=== PATIENT | male | born 1945 | race Caucasian/White ===

== ENCOUNTER 2023-08-14 09:19 | Outpatient (CLI) | payer OTHER, SELFPAY ==
--- OUTSIDE RECORDS SUMMARY | 2023-08-14 09:26 | XMS_ITS | Encounter Summary ---
Author Name Unknown Organization [facility] er Address [address] [place] [address] Care Team Providers Care Construction Electrician Name Role Phone None, Pcp Primary Care Provider Unavailabl e Reason for Visit * Consultation (Routine) - Authorized Specialty Diagnoses / Procedures Referred By Contact Referred To Contact Cardiac Rehabilitation / Cardiopulmonary Rehab Diagnoses History of heart artery stent Sabina Masters MD [address] [place], [place] [phone] [facility] [address] [place] [address] Referral ID Status Reason Start Date Expiration Date Visits Requested Visits Authorized [id number] Authorized Specialty Services Required 10/05/2022 10/06/2023 99 99 Encounter Details Date Type Department Care Team (Latest Contact Info) Description 10/15/2022 2:00 PM CDT Treatment [facility] [address] [place] [address] ST elevation myocardial infarction (STEMI), unspecified artery (HCC) (Primary Dx) Social History Tobacco Use Types Packs/Day Years Used Date Smoking Tobacco: Former Smokeless Tobacco: Never Alcohol Use Standard Drinks/Week Comments Not Currently 0 (1 standard drink = 0.6 oz pur e alcohol) PHQ-2 Answer Date Recorded PHQ-9 Total Score 0 10/15/2022 Sex and Gender Information Value Date Recorded Sex Assigned at Not on file Gender Identity Not on file Sexual Orientation Not on file documented as of this encounter Progress Notes * Yvrose Atkinson - 10/15/2022 2:00 PM CDT Patient presented to initial Cardiac Rehab session. [facility] to [facility] if [facility] is interested in [facility]. Sent patient home with welcome materials and phone number to call back and schedule. documented in this encounter Plan of Treatment Upcoming Encounters Date Type Department Care Team (Late st Contact Info) Description 09/18/2023 10:45 AM MINE SHIFTER Hospital Encounter [facility] OR Procedure Room [address] [place] [phone] Maximino Hernandez MD [address] [place] [phone] 09/18/2023 10:45 AM MINE SHIFTER - 09/18/2023 11:30 AM MINE SHIFTER Surgery [facility] OR Procedure Room [address] [place] [phone] Maximino Hernandez MD [address] [place] [phone] COLONOSCOPY Scheduled Procedures Name Priority Associated Diagnoses Date/Ti me COLONOSCOPY Personal history of colonic polyps 09/18/2023 10:45 AM MINE SHIFTER Scheduled Referrals Name Type Priority Associated Diagnoses Order Schedule Ambulatory referral to Cardiac Rehabilitation Outpatient Referral Routine History of heart artery stent Ordered: 10/05/2022 documented as of this encounter Visit Diagnoses Diagnosis ST elevation myocardial infarction (STEMI), unspecified artery (HCC)- Primary Personal history of colonic polyps documented in this encounter Care Teams Construction Electrician Relationship Specialty Start Date End Date None, Pcp [address] [place] [phone] PCP - General Tractor Sweeper Driver 11/06/21 documented as of this encounter
--- OUTSIDE RECORDS SUMMARY | 2023-08-14 09:26 | XMS_ITS | Clinical Summary ---
Author Name Unknown Organization [facility] er Address [address] [place] [address] Care Team Providers Care Tax Map Technician Name Role Phone None, Pcp Primary Care Provider Unavailabl e Allergies Active Allergy Reactions Criticality Noted Date Comments Bupropion Hcl 11/06/2021 Medications Medication Sig Dispensed Refills Start Date End Date Status insulin NPH, Isophane, (HumuLIN,NovoLIN) 100 UNIT/ML injection Inject under the skin twice a day 35u AM dose 15u PM dose 0 08/09/2016 Active INSULIN REGULAR HUMAN IJ Inject under the skin 2 (two) times a day 22u AM dose 20u PM dose 0 08/09/2016 Active aspirin 81 MG chewable tablet 0 07/05/2016 Active atorvastatin (Lipitor) 20 MG tablet 0 07/05/2016 Active cyanocobalamin (VITAMIN B-12) 1000 MCG tablet Take 1,000 mcg by mouth 1 (one) time each day 0 10/07/2021 Active hydroCHLOROthiazide (HYDRODIURIL) 25 MG tablet Take 25 mg by mouth 1 (one) time each day 0 10/06/2021 Active lisinopril (ZESTRIL) 40 MG tablet 0 07/05/2016 Active metFORMIN (GLUCOPHAGE) 1000 MG tablet Take 1 tablet by mouth 2 (two) times a day 0 07/05/2016 Active Active Problems No known active problems Social History Tobacco Use Types Packs/Day Years [...] on file Sexual Orientation Not on file Last Filed Vital Signs Vital Sign Reading Time Taken Comments Blood Pressure 173/70 11/06/2021 9:49 AM CDT Pulse 78 11/06/2021 9:49 AM CDT Temperature 36.4 ??C (97.5 ??F) 11/06/2021 9:49 AM CD T Respiratory Rate 18 11/06/2021 9:49 AM CDT Oxygen Saturation 96% 11/06/2021 9:49 AM CDT Inhaled Oxygen Concentration - - Weight 91.9 kg (202 lb 9.6 oz) 11/06/2021 9:49 A M CDT Height 172 cm (5' 7.72) 11/06/2021 9:49 AM CDT Body Mass Index 31.06 11/06/2021 9:49 AM CDT Plan of Treatment Upcoming Encounters Date Type Department Care Team (Late st Contact Info) Description 09/18/2023 10:45 AM CERTIFIED SURGICAL TECHNICIAN Hospital Encounter [facility] Hospital OR Procedure Room [address] [place] [phone] Maximino Hernandez MD [address] [place] [phone] 09/18/2023 10:45 AM CERTIFIED SURGICAL TECHNICIAN - 09/18/2023 11:30 AM CERTIFIED SURGICAL TECHNICIAN Surgery [facility] OR Procedure Room [address] [place] [phone] Maximino Hernandez MD [address] [place] [phone] COLONOSCOPY Scheduled Procedures Name Priority Associated Diagnoses Date/Ti me COLONOSCOPY Personal history of colonic polyps 09/18/2023 10:45 AM CERTIFIED SURGICAL TECHNICIAN Health Maintenance Due Date Last Done Comments COVID-19 Vaccine (#1) 1947 Fall Risk Performed 1965 Zoster Vaccines (1 of 2) 1997 Pneumococcal Vaccine: 65+ Years (1 of 1 - PCV) 02/29/2012 Influenza Vaccine (#1) 2023 05/17/2011 DTaP,Tdap,and Td Vaccines (4 - Td or Tdap) 07/12/2032 07/12/2022, 11/24/2012, 06/11/2007, Additional history exists Colonoscopy Discontinued 05/25/2013 Colorectal Cancer Screening Discontinued CT Colonography Discontinued FIT-DNA Discontinued HPV Vaccines Aged Out No longer eligi ble based on patient's age to complete this topic Sigmoidoscopy Discontinued iFOBT Discontinued Care Teams Tax Map Technician Relationship Specialty Start Date End Date None, Pcp [address] [place] [phone] PCP - General De Icer Finisher 11/06/21
--- OUTSIDE RECORDS SUMMARY | 2023-08-14 09:26 | XMS_ITS | Encounter Summary ---
Author Name Unknown Organization [facility] er Address [address] [place] [address] Care Team Providers Care Seed Technician Name Role Phone None, Pcp Primary Care Provider Unavailabl e Reason for Referral * Consultation (Routine) - Authorized Specialty Diagnoses / Procedures Referred By Contact Referred To Contact Cardiac Rehabilitation / Cardiopulmonary Rehab Diagnoses History of heart artery stent Sabina Masters MD [address] [place] [phone] [facility] [address] [place] [phone] Referral ID Status Reason Start Date Expiration Date Visits Requested Visits Authorized [id number] Authorized Specialty Services Required 10/05/2022 10/06/2023 99 99 Scheduling Instructions STENT 09/22/22 LITIES PAINTER Encounter Details Date Type Department Care Team (Late Contact Info) Description 10/05/2022 Orders Only [facility] [address] [place] [phone] Sabina Masters MD [address] [place] [phone] History of heart artery stent (Primary Dx) Social History Tobacco Use Types Packs/Day Years Used Date Smoking Tobacco: Former Smokeless Tobacco: Never Alcohol Use Standard Drinks/Week Comments Not Currently 0 (1 standard drink = 0.6 oz pur e alcohol) Sex and Gender Information Value Date Recorded Sex Assigned at Not on file Gender Identity Not on file Sexual Orientation Not on file documented as of this encounter Plan of Treatment Upcoming Encounters Date Type Department Care Team (Late Contact Info) Description 09/18/2023 10:45 AM FACILITIES PAINTER Hospital Encounter [facility] Procedure Room [address] [place] [phone] Maximino Hernandez MD [address] [place] [phone] 09/18/2023 10:45 AM FACILITIES PAINTER - 09/18/2023 11:30 AM FACILITIES PAINTER Surgery [facility] OR Procedure Room [address] [place] [phone] Maximino Hernandez MD [address] [place] [phone] COLONOSCOPY Scheduled Procedures Name Priority Associated Diagnoses Date/Ti me COLONOSCOPY Personal history of colonic polyps 09/18/2023 10:45 AM FACILITIES PAINTER Scheduled Referrals Name Type Priority Associated Diagnoses Order Schedule Ambulatory referral to Cardiac Rehabilitation Outpatient Referral Routine History of heart artery stent Ordered: 10/05/2022 documented as of this encounter Visit Diagnoses Diagnosis History of heart artery stent- Primary Personal history of colonic polyps documented in this encounter Care Teams Seed Technician Relationship Specialty Start Date End Date None, Pcp [address] [place] [phone] PCP - General Data Librarian 11/06/21 documented as of this encounter
--- OUTSIDE RECORDS SUMMARY | 2023-08-14 09:27 | XMS_ITS | Continuity of Care Document ---
Author Name [facility] Organization [facility] Care Team Providers Care Geologist Name Role Phone [facility] Unavailable Unavailable Problems Combined list of problems from Department of Defense and Veterans Affairs facilities. It does not include entries that were removed or entered in error. Problem Status Onset Date Problem Type Date of Resolution Comments Source Anemia Active Condition [facility] ([facility]) Aortic valve stenosis Active Condition Jul 11, 2023 Entered By: ZINA MARIANO Comment: -Echo 02/18/2023: Mild; mean gradient of 10 mmHg, MICHAEL of 1.5-2.0 cm2 [facility]) CAD - Coronary Artery Disease ([facility] [id number]) Active Condition Oct 01, 2022 Entered By: DAMIAN RYAN Comment: 09/22/2022 stemi with 2 stents [facility]) CHF - Congestive Heart Failure ([facility] [id number]) Active Condition Mar 04, 2023 Entered By: OSMANY RIVERA Comment: -EF 50-55% per echo 3Dec 2022 Entered By: ZINA MARIANO Comment: repeat echo in 3 year [facility]) Ex-tobacco user Active Condition Jul 11, 2023 Entered By: ZINA MARIANO Comment: Quit 2012 [facility] ([facility]) Family history of disorder Active Condition Jul 11, 2023 Entered By: ZINA MARIANO Comment: Mother- dementiaDec 2022 Entered By: ZINA MARIANO Comment: Son - PA in 40sDec 2022 Entered By: ZINA MARIANO Comment: Father - DM, MIDec 2022 Entered By: ZINA MARIANO Comment: Sister - DM [facility] ([facility]) History of adenomatous polyp of colon Active Condition Jul 11, 2023 Entered By: ZINA MARIANO Comment: last colonoscopy 2013 [place] [facility] [place] pt report normal [facility]) History of surgery Active Condition Jul 11, 2023 Entered By: ZINA MARIANO Comment: left inguinal hernia repair 08/2018 [facility] (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 Jul 11, 2023 Entered By: ZIAN MARIANO Comment: onset at 55 years old; pos KSENIA--65 antibody [facility] Mixed hyperlipidemia Active Condition [facility] ([facility]) Multiple nodules of lung Active Condition [facility] ([facility]) Peripheral neuropathy Active Condition [facility] Pernicious anemia Active Condition [facility] ([facility]) Polymyalgia rheumatica Active Condition [facility] ([facility]) Social and personal history finding Active Condition Jul 11, 2023 Entered By: ZINA [facility]IANO [facility] Entered By: ZIAN MARIANO Comment: Does not drink alcohol [facility] ([facility]) Diagnosis: ICD-10-CM E10.9 Type 1 diabetes mellitus without complications Active Diagnosis [facility] Diagnosis: ICD-10-CM M35.3 Polymyalgia rheumatica Active Diagnosis [facility] Diagnosis: ICD-10-CM I10 Essential (primary) hypertension Active Diagnosis [facility] ([facility]) Diagnosis: ICD-10-CM E10.40 Type 1 diabetes mellitus with diabetic neuropathy, unsp Active Diagnosis [facility] (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 Diagnosis: ICD-10-CM M79.643 Pain in unspecified hand Active Diagnosis [facility] ([facility]) Diagnosis: ICD-10-CM Z13.6 Encounter for screening for cardiovascular disorders Active Diagnosis [facility] Diagnosis: ICD-10-CM I50.9 Heart failure, unspecified Active Diagnosis [facility] ([facility]) Diagnosis: ICD-10-CM E11.9 Type 2 diabetes mellitus without complications Active Diagnosis [facility] ([facility]) Diagnosis: ICD-10-CM E10.8 Type 1 diabetes mellitus with unspecified complications Active Diagnosis [facility] Diagnosis: ICD-10-CM E11.65 Type 2 diabetes mellitus with hyperglycemia Active Diagnosis [facility] Diagnosis: ICD-10-CM Z01.00 Encounter for exam of eyes and vision w/o abnormal findings Active Diagnosis [facility] Medications Combined list of outpatient medications from Department of Defense and Veterans Affairs facilities.Medications provided include 1) outpatient medications from the last 15 months, and 2) patient-reported medications. Medication Details Route Status Patient Instructions Prescription Expires Prescription Number Last Dispense Date Ordering Provider Order Date Source ASPIRIN 81MG TAB,EC TAKE ONE TABLET BY MOUTH EVERY DAY FOR HEART DISEASE ORALLY SUSPEND ED 07/11/2024 [id number] CAIN MARIANO 2023 [place] ([facility]) ASPIRIN 81MG TAB,EC TAKE ONE TABLET BY MOUTH EVERY DAY FOR HEART DISEASE ORALLY DISCONT INUED 09/20/2023 [id number] 3 HARDER,EM POOJA 2022 [place] ([facility]) ATORVASTATI N CA 40MG TAB TAKE ONE TABLET BY MOUTH AT BEDTIME FOR CHOLESTE ROL ORALLY DISCONT INUED (EDIT) 12/15/2022 [id number] 3 HARDER,EM POOJA 2021 [place] ([facility]) ATORVASTATI N CA 80MG TAB TAKE ONE TABLET BY MOUTH AT BEDTIME FOR CHOLESTE ROL ORALLY SUSPEND ED 07/11/2024 [id number] 4 CAIN MARIANO 2023 [place] ([facility]) ATORVASTATI N CA 80MG TAB TAKE ONE TABLET BY MOUTH AT BEDTIME FOR CHOLESTE ROL ORALLY DISCONT INUED 10/02/2023 [id number] 3 PATEL RYAN 2022 [place] ([facility]) CLOPIDOGREL BISULFATE 75MG TAB TAKE ONE TABLET BY MOUTH EVERY DAY FOR 1 YEAR AFTER STENT UNTIL 09/25/19 24 ORALLY ACTIVE 10/02/2023 [id number] 3 PATEL RYAN 2022 [place] ([facility]) CYANOCOBALA MIN 1000MCG TAB TAKE ONE TABLET BY MOUTH EVERY DAY FOR B12 SUPPLEME NT ORALLY SUSPEND ED 07/11/2024 [id number] 4 CAIN MARIANO 2023 [place] ([facility]) CYANOCOBALA MIN 1000MCG TAB TAKE ONE TABLET BY MOUTH EVERY DAY FOR B12 SUPPLEME NT ORALLY DISCONT INUED 09/20/2023 [id number] 3 HARDER,EM POOJA 2022 [place] ([facility]) DICLOFENAC NA 1% GEL,TOP APPLY 4 GRAMS TOPICALL Y THREE TIMES A DAY NEEDED TO AFFECTED AREA FOR PAIN TOPICA LLY ACTIVE 07/11/2024 [id number] 3 CAIN MARIANO A 2022 [place] ([facility]) DICLOFENAC NA 1% GEL,TOP APPLY 4 GRAMS TOPICALL Y THREE TIMES A DAY NEEDED TO AFFECTED AREA FOR PAIN TOPICA LLY DISCONT INUED 10/02/2023 [id number] 3 CON[facility] BRENDAN NATALIO 2022 [place] ([facility]) EMPAGLIFLOZ IN 25MG TAB TAKE ONE-HALF TABLET BY MOUTH EVERY DAY FOR HEART FAILURE ORALLY DISCONT INUED 12/30/2022 [id number] 3 PATEL RYAN NATALIO 2022 [place] ([facility]) EMPAGLIFLOZ IN 25MG TAB TAKE ONE TABLET BY MOUTH EVERY DAY ORALLY DISCONT INUED 12/08/2022 [id number] 2 [facility] [place] [facility] FUROSEMIDE 40MG TAB TAKE ONE TABLET BY MOUTH EVERY MORNING FOR EXCESS FLUID ORALLY SUSPEND ED 07/11/2024 [id number] 4 CAIN MARIANO A 2023 [place] ([facility]) FUROSEMIDE 40MG TAB TAKE ONE TABLET BY MOUTH EVERY MORNING FOR EXCESS FLUID ORALLY DISCONT INUED 10/02/2023 [id number] 3 [facility] [place] [facility] HYDROCHLORO THIAZIDE 25MG TAB TAKE ONE TABLET BY MOUTH EVERY DAY FOR BLOOD PRESSURE ORALLY DISCONT INUED 09/20/2023 [id number] 3 HARDER,EM POOJA 2022 [place] ([facility]) INSULIN,ASP ART,HUMAN (EQV-NOVOLO G) 100 UNIT/ML,FLE XPEN,3ML INJECT 16 UNITS UNDER THE SKIN THREE TIMES A DAY WITH MEALS FOR DIABETES PLUS 1 ADDITION AL UNIT FOR EVERY 50 OVER 150. MAX OF 20 UNITS PER DOSE. SKIP DOSE IF NOT EATING. MAX OF 60 UNITS PER DAY SUBCUT ANEOUS ACTIVE 07/11/2024 [id number] 3 CAIN MARIANO 2022 [place] ([facility]) INSULIN,ASP ART,HUMAN (EQV-NOVOLO G) 100 UNIT/ML,FLE XPEN,3ML INJECT 12 UNITS UNDER THE SKIN THREE TIMES A DAY WITH MEALS FOR DIABETES PLUS 1 ADDITION AL UNIT FOR EVERY 50 OVER 150. MAX OF 20 UNITS. SKIP DOSE IF NOT EATING PLUS 1 ADDITION AL UNIT FOR EVERY 50 OVER 150. MAX OF 20 UNITS. SKIP DOSE IF NOT EATING SUBCUT ANEOUS DISCONT INUED (EDIT) 07/02/2024 [id number] 3 HARDER,EM POOJA 2022 [place] ([facility]) INSULIN,ASP ART,HUMAN (EQV-NOVOLO G) 100 UNIT/ML,FLE XPEN,3ML INJECT 12 UNITS UNDER THE SKIN THREE TIMES A DAY WITH MEALS FOR DIABETES - SKIP DOSE IF NOT EATING PLUS 1 ADDITION AL UNIT FOR EVERY 50 OVER 150. MAX OF 16 UNITS PER DOSE - SKIP DOSE IF NOT EATING PLUS 1 ADDITION AL UNIT FOR EVERY 50 OVER 150. MAX OF 16 UNITS PER DOSE SUBCUT ANEOUS DISCONT INUED (EDIT) 12/07/2023 [id number] 3 HARDER,EM POOJA 2022 [place] ([facility]) INSULIN,ASP ART,HUMAN (EQV-NOVOLO G) 100 UNIT/ML,FLE XPEN,3ML INJECT 12 UNITS UNDER THE SKIN THREE TIMES A DAY WITH MEALS FOR DIABETES - SKIP DOSE IF NOT EATING PLUS 1 ADDITION AL UNIT FOR EVERY 50 OVER 150. MAX OF 16 UNITS PER DOSE - SKIP DOSE IF NOT EATING PLUS 1 ADDITION AL UNIT FOR EVERY 50 OVER 150. MAX OF 16 UNITS PER DOSE SUBCUT ANEOUS DISCONT INUED 12/07/2023 [id number] 3 HARDER,EM POOJA 2022 [place] ([facility]) INSULIN,ASP ART,HUMAN (EQV-NOVOLO G) 100 UNIT/ML,FLE XPEN,3ML INJECT 10 UNITS UNDER THE SKIN THREE TIMES A DAY WITH MEALS FOR DIABETES - SKIP DOSE IF NOT EATING SUBCUT ANEOUS DISCONT INUED (EDIT) 09/05/2023 [id number] 3 [facility] [place] [facility] INSULIN,ASP ART,HUMAN 100 UNIT/ML INJ,PENFILL ,3ML INJECT 6 UNITS UNDER THE SKIN EVERY MORNING AND INJECT 8 UNITS TWICE A DAY DIABETES INJECT IMMEDIAT HARVEY BEFORE MEAL SUBCUT ANEOUS DISCONT INUED 07/13/2023 [id number] 2 [facility] [place] [facility] INSULIN,ASP ART,HUMAN 100U/ML,NOV OLOG,FLEXPE N,3ML INJECT 10 UNITS UNDER THE SKIN THREE TIMES A DAY WITH MEALS FOR DIABETES SKIP DOSE IF NOT EATING SUBCUT ANEOUS DISCONT INUED 08/22/2023 [id number] 3 HARDER,EM POOJA 2022 [place] ([facility]) INSULIN,ASP ART,HUMAN 100U/ML,NOV OLOG,FLEXPE N,3ML INJECT 6 UNITS UNDER THE SKIN EVERY MORNING AND INJECT 8 UNITS EVERYDAY AT NOON AND INJECT 8 UNITS EVERY EVENING FOR DIABETES SUBCUT ANEOUS DISCONT INUED (EDIT) 07/20/2023 [id number] 2 TIM SHAH 2021 [facility] INSULIN,GLA RGINE,HUMAN 100 UNIT/ML INJ,SOLOSTA R,3ML INJECT 55 UNITS UNDER THE SKIN EVERY MORNING FOR DIABETES SUBCUT ANEOUS DISCONT INUED 10/02/2023 [id number] 3 [facility] [place] [facility] INSULIN,GLA RGINE,HUMAN 100 UNIT/ML INJ,SOLOSTA R,3ML INJECT 40 UNITS UNDER THE SKIN EVERY MORNING FOR DIABETES SUBCUT ANEOUS DISCONT INUED (EDIT) 07/13/2023 [id number] 3 [facility] 2021 [place] ([facility]) INSULIN,GLA RGINE-YFGN 100UNIT/ML INJ PEN,3ML INJECT 54 UNITS UNDER THE SKIN AT BEDTIME FOR DIABETES SUBCUT ANEOUS ACTIVE 05/09/2024 [id number] 4 HARDER,EM POOJA 2023 [place] ([facility]) INSULIN,GLA RGINE-YFGN 100UNIT/ML INJ PEN,3ML INJECT 50 UNITS UNDER THE SKIN AT BEDTIME FOR DIABETES SUBCUT ANEOUS DISCONT INUED (EDIT) 12/07/2023 [id number] 3 HARDER,EM POOJA 2022 [place] ([facility]) LIDOCAINE 4% CREAM,TOP APPLY MODERATE AMOUNT TOPICALL Y THREE TIMES A DAY FOR PAIN TOPICA LLY ACTIVE 12/12/2023 [id number] 3 ANURAG MADDOX 2022 [place] ([facility]) LOSARTAN 50MG TAB TAKE ONE TABLET BY MOUTH EVERY DAY FOR HEART FAILURE ORALLY ACTIVE 12/07/2023 [id number] 3 HARDER,EM POOJA 2022 [place] ([facility]) LOSARTAN 50MG TAB TAKE ONE TABLET BY MOUTH EVERY DAY ORALLY DISCONT INUED 06/15/2023 [id number] 3 PATEL RYAN 2021 [place] ([facility]) METFORMIN HCL 1000MG TAB TAKE ONE TABLET BY MOUTH TWICE A DAY FOR DIABETES ORALLY ACTIVE 01/02/2024 [id number] 3 HARDER,EM POOJA 2022 [place] ([facility]) METFORMIN HCL 1000MG TAB TAKE ONE TABLET BY MOUTH EVERY MORNING FOR DIABETES ORALLY DISCONT INUED (EDIT) 09/19/2023 [id number] 3 PATEL RYAN 2022 [facility] METFORMIN HCL 1000MG TAB TAKE ONE TABLET BY MOUTH TWO TIMES A DAY FOR DIABETES FOR DIABETES ORALLY DISCONT INUED (EDIT) 07/13/2023 [id number] 3 PATEL RYAN 2022 [place] ([facility]) METOPROLOL SUCCINATE 50MG TAB,SA TAKE ONE TABLET BY MOUTH EVERY DAY FOR HEART PROTECTI ON ORALLY SUSPEND ED 07/11/2024 [id number] 4 CAIN MARIANO A 2023 [place] ([facility]) METOPROLOL SUCCINATE 50MG TAB,SA TAKE ONE TABLET BY MOUTH EVERY DAY FOR HEART PROTECTI ON ORALLY DISCONT INUED 10/02/2023 [id number] 3 PATEL RYAN 2022 [place] ([facility]) NITROGLYCER IN 0.4MG TAB,SUBLING UAL DISSOLVE ONE TABLET UNDER THE TONGUE EVERY 5 MINUTES FOR UP TO 3 DOSES IF NEEDED FOR CHEST PAIN SUBLIN GUAL ACTIVE 07/11/2024 [id number] 3 CAIN MARIANO Erwin 2022 [place] ([facility]) NITROGLYCER IN 0.4MG TAB,SUBLING UAL DISSOLVE ONE TABLET UNDER THE TONGUE EVERY 5 MINUTES FOR UP TO 3 DOSES IF NEEDED FOR CHEST PAIN SUBLIN GUAL DISCONT INUED 10/02/2023 [id number] 3 PATEL RYAN 2022 [place] ([facility]) PREDNISONE 1MG TAB TAKE BY MOUTH EVERY DAY DIRECTED TAKE 1 TABLET WITH 5MG TABLET FOR TOTAL OF 6MG DAILY FOR 30 DAYS, THEN ONE 5MG TABLET DAILY FOR 30 DAYS, THEN FOUR 1MG TABLETS (4MG DOSE) DAILY FOR 30 DAYS ORALLY ACTIVE 10/23/2023 [id number] 4 TAMRA MARQUEZ 2023 [facility] PREDNISONE 1MG TAB TAKE FOUR TABLETS BY MOUTH EVERY DAY FOR 30 DAYS, THEN TAKE THREE TABLETS EVERY DAY FOR 30 DAYS, THEN TAKE TWO TABLETS EVERY DAY FOR 30 DAYS PMR *TAKE WITH 5 MG TABLET ORALLY 07/16/2023 [id number] 3 TAMRA MARQUEZ 2022 [place] ([facility]) PREDNISONE 20MG TAB TAKE ONE TABLET BY MOUTH EVERY DAY FOR POLYMYAL AL RHEUMATI CA ORALLY DISCONT INUED 03/04/2023 [id number] JON AGUILAR 2022 [place] ([facility]) PREDNISONE 20MG TAB TAKE ONE TABLET BY MOUTH EVERY DAY FOR POLYMYAL AL RHEUMATI CA ORALLY DISCONT INUED 02/23/2023 [id number] 3 JON AGUILAR 2022 [place] ([facility]) PREDNISONE 5MG TAB TAKE ONE TABLET BY MOUTH EVERY DAY FOR 60 DAYS ORALLY ACTIVE 09/23/2023 [id number] 4 TAMRA MARQUEZ 2023 [facility] PREDNISONE 5MG TAB TAKE THREE TABLETS BY MOUTH EVERY DAY FOR 30 DAYS, THEN TAKE 2 AND ONE-HALF TABLETS EVERY DAY FOR 30 DAYS, THEN TAKE TWO TABLETS EVERY DAY FOR 30 DAYS FOR POLYMYAL AL RHEUMATI CA ORALLY DISCONT INUED 05/08/2023 [id number] 3 TAMRA MARQUEZ 2022 [facility] PREDNISONE 5MG TAB TAKE ONE TABLET BY MOUTH EVERY DAY TAKE WITH 1 MG TABLETS DIRECTED ORALLY 07/16/2023 [id number] 3 TAMRA MARQUEZ 2022 [place] ([facility]) Allergies, Adverse Reactions, Alerts Combined list of allergies from Department of Defense and Veterans Affairs facilities. It does not include entries that were removed or entered in error. Substance Category Reaction Severity Reaction type Status Date Reported Comments Source LISINOPRIL Propensity to adverse reactions to drug (finding) Cough active 9 [facility] PIOGLITAZONE Propensity to adverse reactions to drug (finding) Generalized aches and pains active 9 [facility] SEMAGLUTIDE Propensity to adverse reactions to drug (finding) Fatigue, Numbness, Nausea MILD active 2 [facility] WELLBUTRIN Propensity to adverse reactions to drug (finding) Coordinatio n problem active 6 [facility] Immunizations Combined list of available immunizations from the Department of Defense and Veterans Affairs facilities. Immunization Series Date Given Administered By Site Reaction Lot Number CVX Code Drug Channeler Status Comments Source TDAP 2021 RUDOLPHMILLY A LEFT DELTO ID [id number] 115 complet ed [place] [facility] ([facility]) COVID-19 (1calendar), MRNA, LNP-S, PF, 30 MCG/0.3 ML DOSE, SHERRY-SUCROSE (AGES 12+ YEARS) 2 2021 217 complet ed PFR; [id number]; 2 [place] ([facility]) COVID-19 ([employer] VECTOR-NR, RS-[id number], PF, 0.5 ML 1 2020 212 complet ed JSN; [id number]; 1 [place] [facility] ([facility]) ZOSTER RECOMBINANT 2 2020 187 complet ed [place] [facility] ([facility]) ZOSTER RECOMBINANT 1 2019 187 complet ed [facility] ([facility]) PNEUMOCOCCAL CONJUGATE PCV 13 2015 133 complet ed [employer], [id number], 05/14 [place] [facility] ([facility]) ZOSTER LIVE 2015 121 complet ed [employer], [id number], 7 [place] ([facility]) PNEUMOCOCCAL POLYSACCHARID E PPV23 2012 33 complet ed Per [facility] sheet [facility] TDAP 2012 115 complet ed [facility] HEP B, ADULT 2010 43 complet ed [facility] HEP B, ADULT 2010 43 complet ed [facility] INFLUENZA, SEASONAL, INJECTABLE 2010 141 complet ed [facility] TDAP 2006 115 complet ed [facility] PNEUMOCOCCAL POLYSACCHARID E PPV23 2003 33 complet ed per miic [facility] TD (ADULT), 2 LF TETANUS TOXOID, PRESERVATIVE FREE, ADSORBED 1997 09 complet ed [facility] Results Combined list of recent chemistry, hematology and other laboratory results from Department of Defense and Veterans Affairs, ranging from 15 months to all on record, depending upon the facility. Order Name Results Value Reference Range Date Interpretation Specimen Comments Source C-REACTIV E PROTEIN C REACTIVE PROTEIN [MASS/VOLUM E] IN SERUM OR PLASMA BY HIGH SENSITIVITY METHOD 0.50 <5.00 - 5.00 07/11 Specimen Type: PLASMA No comment entered. Ordering Provider: TAMRA FARRAR Report Released Date/Time: Apr 17, 2023 10:34 AM Reporting Lab: [facility] [phone] Performing Lab: [facility] [address] [facility] ([facility]) SED RATE ERYTHROCYTE SEDIMENTATI ON RATE 6 5 - 15 07/11 Specimen Type: BLOOD No comment entered. Ordering Provider: TAMRA FARRAR Report Released Date/Time: Apr 17, 2023 10:34 AM Reporting Lab: [facility] [address] Performing Lab: [facility] [phone] [facility] ([facility]) CBC & DIFF LEUKOCYTES [#/VOLUME] IN BLOOD BY AUTOMATED COUNT 8.43 4.0 - 11.0 07/11 Specimen Type: BLOOD Comment: Automated Differentia l Performed Ordering Provider: TAMRA FARRAR Report Released Date/Time: Apr 17, 2023 10:34 AM Reporting Lab: [facility] [phone] Performing Lab: [facility] [phone] [facility] ([facility]) CBC & DIFF ERYTHROCYTE S [#/VOLUME] IN BLOOD BY AUTOMATED COUNT 5.38 4.6 - 6.2 07/11 Specimen Type: BLOOD Comment: Automated Differentia l Performed Ordering Provider: TAMRA FARRAR Report Released Date/Time: Apr 17, 2023 10:34 AM Reporting Lab: [facility] [phone] Performing Lab: [facility] [address] [facility] ([facility]) CBC & DIFF HEMOGLOBIN [MASS/VOLUM E] IN BLOOD 14.9 13.5 - 17.9 07/11 Specimen Type: BLOOD Comment: Automated Differentia l Performed Ordering Provider: TAMRA FARRAR Report Released Date/Time: Apr 17, 2023 10:34 AM Reporting Lab: [facility] [address] Performing Lab: [facility] [address] [facility] ([facility]) CBC & DIFF HEMATOCRIT [VOLUME FRACTION] OF BLOOD BY AUTOMATED COUNT 46.4 41 - 54 07/11 Specimen Type: BLOOD Comment: Automated Differentia l Performed Ordering Provider: TAMRA FARRAR Report Released Date/Time: Apr 17, 2023 10:34 AM Reporting Lab: [facility] [address] Performing Lab: [facility] [phone] [facility] ([facility]) CBC & DIFF MCV [ENTITIC VOLUME] BY AUTOMATED COUNT 86.2 80 - 100 07/11 Specimen Type: BLOOD Comment: Automated Differentia l Performed Ordering Provider: TAMRA FARRAR Report Released Date/Time: Apr 17, 2023 10:34 AM Reporting Lab: [facility] [address] Performing Lab: [facility] [address] [facility] ([facility]) CBC & DIFF MCH [ENTITIC MASS] BY AUTOMATED COUNT 27.7 27 - 33 07/11 Specimen Type: BLOOD Comment: Automated Differentia l Performed Ordering Provider: TAMRA FARRAR Report Released Date/Time: Apr 17, 2023 10:34 AM Reporting Lab: [facility] [address] Performing Lab: [facility] [address] [facility]) CBC & DIFF MCHC [MASS/VOLUM E] BY AUTOMATED COUNT 32.1 32.0 - 37.5 07/11 Specimen Type: BLOOD Comment: Automated Differentia l Performed Ordering Provider: TAMRA FARRAR Report Released Date/Time: Apr 17, 2023 10:34 AM Reporting Lab: [facility] [address] Performing Lab: [facility] [phone] [facility]) CBC & DIFF PLATELETS [#/VOLUME] IN BLOOD BY AUTOMATED COUNT 305 150 - 400 07/11 Specimen Type: BLOOD Comment: Automated Differentia l Performed Ordering Provider: TAMRA FARRAR Report Released Date/Time: Apr 17, 2023 10:34 AM Reporting Lab: [facility] [address] Performing Lab: [facility] [phone] [facility] ([facility]) CBC & DIFF PLATELET MEAN VOLUME [ENTITIC VOLUME] IN BLOOD BY AUTOMATED COUNT 10.0 7.4 - 10.4 07/11 Specimen Type: BLOOD Comment: Automated Differentia l Performed Ordering Provider: TAMRA FARRAR Report Released Date/Time: Apr 17, 2023 10:34 AM Reporting Lab: [facility] [address] Performing Lab: [facility] [address] [facility] ([facility]) CBC & DIFF NEUTROPHILS /100 LEUKOCYTES IN BLOOD BY MANUAL COUNT 71.8 40.0 - 80.0 07/11 Specimen Type: BLOOD Comment: Automated Differentia l Performed Ordering Provider: TAMRA FARRAR Report Released Date/Time: Apr 17, 2023 10:34 AM Reporting Lab: [facility] [address] Performing Lab: [facility] [address] [facility] ([facility]) CBC & DIFF LYMPHOCYTES /100 LEUKOCYTES IN BLOOD BY MANUAL COUNT 18.4 15.0 - 45.0 07/11 Specimen Type: BLOOD Comment: Automated Differentia l Performed Ordering Provider: TAMRA FARRAR Report Released Date/Time: Apr 17, 2023 10:34 AM Reporting Lab: [facility] [address] Performing Lab: [facility] [address] [facility] ([facility]) CBC & DIFF MONOCYTES/1 00 LEUKOCYTES IN BLOOD BY AUTOMATED COUNT 7.4 2.0 - 12.0 07/11 Specimen Type: BLOOD Comment: Automated Differentia l Performed Ordering Provider: TAMRA FARRAR Report Released Date/Time: Apr 17, 2023 10:34 AM Reporting Lab: [facility] [address] Performing Lab: [facility] [address] [facility] ([facility]) CBC & DIFF EOSINOPHILS /100 LEUKOCYTES IN BLOOD BY AUTOMATED COUNT 1.7 0.0 - 6.0 07/11 Specimen Type: BLOOD Comment: Automated Differentia l Performed Ordering Provider: TAMRA FARRAR Report Released Date/Time: Apr 17, 2023 10:34 AM Reporting Lab: [facility] [phone] Performing Lab: [facility] [address] [facility] ([facility]) CBC & DIFF BASOPHILS/1 00 LEUKOCYTES IN BLOOD BY MANUAL COUNT 0.5 0.0 - 2.0 07/11 Specimen Type: BLOOD Comment: Automated Differentia l Performed Ordering Provider: TAMRA FARRAR Report Released Date/Time: Apr 17, 2023 10:34 AM Reporting Lab: [facility] [address] Performing Lab: [facility] [address] [facility] ([facility]) CBC & DIFF ERYTHROCYTE DISTRIBUTIO N WIDTH [RATIO] BY AUTOMATED COUNT 13.4 11.5 - 14.5 07/11 Specimen Type: BLOOD Comment: Automated Differentia l Performed Ordering Provider: TAMRA FARRAR Report Released Date/Time: Apr 17, 2023 10:34 AM Reporting Lab: [facility] [address] Performing Lab: [facility] [address] [facility] ([facility]) CBC & DIFF LYMPHOCYTES [#/VOLUME] IN BLOOD BY AUTOMATED COUNT 1.55 1.0 - 4.0 07/11 Specimen Type: BLOOD Comment: Automated Differentia l Performed Ordering Provider: TAMRA FARRAR Report Released Date/Time: Apr 17, 2023 10:34 AM Reporting Lab: [facility] [address] Performing Lab: [facility] [address] [facility] ([facility]) CBC & DIFF MONOCYTES [#/VOLUME] IN BLOOD BY AUTOMATED COUNT 0.62 0.1 - 1.0 07/11 Specimen Type: BLOOD Comment: Automated Differentia l Performed Ordering Provider: TAMRA FARRAR Report Released Date/Time: Apr 17, 2023 10:34 AM Reporting Lab: [facility] [address] Performing Lab: [facility] [address] [facility]) CBC & DIFF NEUTROPHILS [#/VOLUME] IN BLOOD BY AUTOMATED COUNT 6.06 2.0 - 7.7 07/11 Specimen Type: BLOOD Comment: Automated Differentia l Performed Ordering Provider: TAMRA FARRAR Report Released Date/Time: Apr 17, 2023 10:34 AM Reporting Lab: [facility] [id number] Performing Lab: [facility] [id number] TRIPP (CBOC) CBC & DIFF EOSINOPHILS [#/VOLUME] IN BLOOD BY AUTOMATED COUNT 0.14 0 - 0.5 07/11 Specimen Type: BLOOD Comment: Automated Differentia l Performed Ordering Provider: TAMRA FARRAR Report Released Date/Time: Apr 17, 2023 10:34 AM Reporting Lab: [facility] [id number] Performing Lab: [facility] [facility] [address] [facility] ([facility]) CBC & DIFF BASOPHILS [#/VOLUME] IN BLOOD BY AUTOMATED COUNT 0.04 0 - 0.2 07/11 Specimen Type: BLOOD Comment: Automated Differentia l Performed Ordering Provider: TAMRA FARRAR Report Released Date/Time: Apr 17, 2023 10:34 AM Reporting Lab: [facility] [address] Performing Lab: [facility] [address] [facility] (CB) CBC & DIFF IG(META,MYE LO,PRO) 0.2 07/11 Specimen Type: BLOOD Comment: Automated Differentia l Performed Ordering Provider: TAMRA FARRAR Report Released Date/Time: Apr 17, 2023 10:34 AM Reporting Lab: [facility] [address] Performing Lab: [place] [address] [facility] ([facility]) CBC & DIFF IMMATURE GRANULOCYTE S [PRESENCE] IN BLOOD BY AUTOMATED COUNT 0.02 0 - 0.1 07/11 Specimen Type: BLOOD Comment: Automated Differentia l Performed Ordering Provider: TAMRA FARRAR Report Released Date/Time: Apr 17, 2023 10:34 AM Reporting Lab: [facility] [address] Performing Lab: [facility] [address] [facility] ([facility]) HEMOGLOBI N A1C HEMOGLOBIN A1C/HEMOGLO BIN.TOTAL IN BLOOD 9.1 4.0 - 6.0 07/11 H Specimen Type: BLOOD Comment: Values obtained from A1C measurement s can vary. For typical A1C assays, a reported value of 7.0 could actually be between 6.7 and 7.3 if measured by a reference method. A reported value of 9.0 could actually be between 8.7 and 9.3. Ref: http://www. ngsp.org/[place] Pdata.asp Ordering Provider: DARYA MARIANO Report Released Date/Time: Jul 11, 2023 09:24 AM Reporting Lab: [facility] [address] Performing Lab: [facility] [address] [facility] ([facility]) COMPREHEN SIVE METABOLIC PANEL+MG CREATININE [MASS/VOLUM E] IN SERUM OR PLASMA 1.0 0.7 - 1.2 07/11 Specimen Type: PLASMA No comment entered. Ordering Provider: DARYA MARIANO Report Released Date/Time: Jul 11, 2023 09:24 AM Reporting Lab: [facility] [address] Performing Lab: [address] ([facility]) COMPREHEN SIVE METABOLIC PANEL+MG UREA NITROGEN [MASS/VOLUM E] IN SERUM OR PLASMA 16 8 - 26 07/11 Specimen Type: PLASMA No comment entered. Ordering Provider: DARYA MARIANO Report Released Date/Time: Jul 11, 2023 09:24 AM Reporting Lab: [address] Performing Lab: [address] ([facility]) COMPREHEN SIVE METABOLIC PANEL+MG GLUCOSE [MASS/VOLUM E] IN SERUM OR PLASMA 121 70 - 100 07/11 H Specimen Type: PLASMA No comment entered. Ordering Provider: DARYA MARIANO Report Released Date/Time: Jul 11, 2023 09:24 AM Reporting Lab: [facility] [address] Performing Lab: [address] ([facility]) COMPREHEN SIVE METABOLIC PANEL+MG SODIUM [MOLES/VOLU ME] IN SERUM OR PLASMA 143 136 - 145 07/11 Specimen Type: PLASMA No comment entered. Ordering Provider: DARYA MARIANO Report Released Date/Time: Jul 11, 2023 09:24 AM Reporting Lab: [facility] [address] Performing Lab: [address] ([facility]) COMPREHEN SIVE METABOLIC PANEL+MG POTASSIUM [MOLES/VOLU ME] IN SERUM OR PLASMA 3.7 3.5 - 5.1 07/11 Specimen Type: PLASMA No comment entered. Ordering Provider: DARYA MARIANO Report Released Date/Time: Jul 11, 2023 09:24 AM Reporting Lab: [facility] [address] Performing Lab: [address] ([facility]) COMPREHEN SIVE METABOLIC PANEL+MG CHLORIDE [MOLES/VOLU ME] IN SERUM OR PLASMA 103 98 - 107 07/11 Specimen Type: PLASMA No comment entered. Ordering Provider: DARYA MARIANO Report Released Date/Time: Jul 11, 2023 09:24 AM Reporting Lab: [facility] [address] Performing Lab: [address] [facility] ([facility]) COMPREHEN SIVE METABOLIC PANEL+MG CARBON DIOXIDE, TOTAL [MOLES/VOLU ME] IN SERUM OR PLASMA 30 22 - 29 07/11 H Specimen Type: PLASMA No comment entered. Ordering Provider: DARYA MARIANO Report Released Date/Time: Jul 11, 2023 09:24 AM Reporting Lab: [address] Performing Lab: [address] [place] [address] ([facility]) COMPREHEN SIVE METABOLIC PANEL+MG CALCIUM [MASS/VOLUM E] IN SERUM OR PLASMA 9.2 8.4 - 10.2 07/11 Specimen Type: PLASMA No comment entered. Ordering Provider: DARYA MARIANO Report Released Date/Time: Jul 11, 2023 09:24 AM Reporting Lab: [facility] [address] Performing Lab: [address] [place] [address] ([facility]) COMPREHEN SIVE METABOLIC PANEL+MG PROTEIN [MASS/VOLUM E] IN SERUM OR PLASMA 7.3 6.0 - 8.3 07/11 Specimen Type: PLASMA No comment entered. Ordering Provider: DARYA MARIANO Report Released Date/Time: Jul 11, 2023 09:24 AM Reporting Lab: [facility] [address] Performing Lab: [facility] [address] [facility] ([facility]) COMPREHEN SIVE METABOLIC PANEL+MG ALBUMIN [MASS/VOLUM E] IN SERUM OR PLASMA 4.1 3.5 - 5.2 07/11 Specimen Type: PLASMA No comment entered. Ordering Provider: DARYA MARIANO Report Released Date/Time: Jul 11, 2023 09:24 AM Reporting Lab: [facility] [address] Performing Lab: [address] ([facility]) COMPREHEN SIVE METABOLIC PANEL+MG BILIRUBIN.T OTAL [MASS/VOLUM E] IN SERUM OR PLASMA 0.5 0.2 - 1.2 07/11 Specimen Type: PLASMA No comment entered. Ordering Provider: DARYA MARIANO Report Released Date/Time: Jul 11, 2023 09:24 AM Reporting Lab: [place] [address] Performing Lab: [address] ([facility]) COMPREHEN SIVE METABOLIC PANEL+MG MAGNESIUM [MASS/VOLUM E] IN SERUM OR PLASMA 1.7 1.6 - 2.6 07/11 Specimen Type: PLASMA No comment entered. Ordering Provider: DARYA MARIANO Report Released Date/Time: Jul 11, 2023 09:24 AM Reporting Lab: [place] [address] Performing Lab: [address] ([facility]) COMPREHEN SIVE METABOLIC PANEL+MG ANION GAP IN SERUM OR PLASMA 10 5 - 15 07/11 Specimen Type: PLASMA No comment entered. Ordering Provider: DARYA MARIANO Report Released Date/Time: Jul 11, 2023 09:24 AM Reporting Lab: [place] [address] Performing Lab: [address] ([facility]) COMPREHEN SIVE METABOLIC PANEL+MG ALKALINE PHOSPHATASE [ENZYMATIC ACTIVITY/VO LUME] IN SERUM OR PLASMA 111 40 - 150 07/11 Specimen Type: PLASMA No comment entered. Ordering Provider: DARYA MARIANO Report Released Date/Time: Jul 11, 2023 09:24 AM Reporting Lab: [place] [address] Performing Lab: [address] ([facility]) COMPREHEN SIVE METABOLIC PANEL+MG ALANINE AMINOTRANSF ERASE [ENZYMATIC ACTIVITY/VO LUME] IN SERUM OR PLASMA 31 <55 - 55 07/11 Specimen Type: PLASMA No comment entered. Ordering Provider: DARYA MARIANO Report Released Date/Time: Jul 11, 2023 09:24 AM Reporting Lab: [facility] [address] Performing Lab: [facility] [address] [facility] ([facility]) COMPREHEN SIVE METABOLIC PANEL+MG ASPARTATE AMINOTRANSF ERASE [ENZYMATIC ACTIVITY/VO LUME] IN SERUM OR PLASMA 18 <34 - 34 07/11 Specimen Type: PLASMA No comment entered. Ordering Provider: DARYA MARIANO Report Released Date/Time: Jul 11, 2023 09:24 AM Reporting Lab: [facility] [address] Performing Lab: [facility] [address] [facility] ([facility]) COMPREHEN SIVE METABOLIC PANEL+MG GLOMERULAR FILTRATION RATE/1.73 SQ M.PREDICTED [VOLUME RATE/AREA] IN SERUM, PLASMA OR BLOOD BY CREATININE- BASED FORMULA (CKD-EPI 2020) 78 60 07/11 Specimen Type: PLASMA No comment entered. Ordering Provider: DARYA MARIANO Report Released Date/Time: Jul 11, 2023 09:24 AM Reporting Lab: [facility] [address] Performing Lab: [facility] [address] [facility] ([facility]) LIPID PANEL,NON -FASTING CHOLESTEROL [MASS/VOLUM E] IN SERUM OR PLASMA 142 <199 - 199 07/11 Specimen Type: PLASMA No comment entered. Ordering Provider: DARYA MARIANO Report Released Date/Time: Jul 11, 2023 09:24 AM Reporting Lab: [facility] [address] Performing Lab: [facility] [address] [facility] ([facility]) LIPID PANEL,NON -FASTING CHOLESTEROL IN HDL [MASS/VOLUM E] IN SERUM OR PLASMA 35 40 07/11 L Specimen Type: PLASMA No comment entered. Ordering Provider: DARYA MARIANO Report Released Date/Time: Jul 11, 2023 09:24 AM Reporting Lab: [facility] [address] Performing Lab: [facility] [address] [facility] ([facility]) LIPID PANEL,NON -FASTING CHOLESTEROL IN LDL [MASS/VOLUM E] IN SERUM OR PLASMA BY CALCULATION 78 <99 - 99 07/11 Specimen Type: PLASMA No comment entered. Ordering Provider: DARYA MARIANO Report Released Date/Time: Jul 11, 2023 09:24 AM Reporting Lab: [facility] [address] Performing Lab: [facility] [address] [facility] ([facility]) LIPID PANEL,NON -FASTING CHOLESTEROL IN VLDL [MASS/VOLUM E] IN SERUM OR PLASMA BY CALCULATION 29 <29 - 29 07/11 Specimen Type: PLASMA No comment entered. Ordering Provider: DARYA MARIANO Report Released Date/Time: Jul 11, 2023 09:24 AM Reporting Lab: [facility] [address] Performing Lab: [facility] [address] [facility] ([facility]) LIPID PANEL,NON -FASTING CHOLESTEROL NON HDL [MASS/VOLUM E] IN SERUM OR PLASMA 107 <129 - 129 07/11 Specimen Type: PLASMA No comment entered. Ordering Provider: DARYA MARIANO Report Released Date/Time: Jul 11, 2023 09:24 AM Reporting Lab: [facility] [address] Performing Lab: [facility] [address] [facility] ([facility]) LIPID PANEL,NON -FASTING TRIGLYCERID E [MASS/VOLUM E] IN SERUM OR PLASMA 144 <149 - 149 07/11 Specimen Type: PLASMA No comment entered. Ordering Provider: DARYA MARIANO Report Released Date/Time: Jul 11, 2023 09:24 AM Reporting Lab: [facility] [address] Performing Lab: [facility] [address] [facility] ([facility]) HEMOGLOBI N A1C HEMOGLOBIN A1C/HEMOGLO BIN.TOTAL IN BLOOD 9.1 4.0 - 6.0 05/09 H Specimen Type: BLOOD Comment: Values obtained from A1C measurement s can vary. For typical A1C assays, a reported value of 7.0 could actually be between 6.7 and 7.3 if measured by a reference method. A reported value of 9.0 could actually be between 8.7 and 9.3. Ref: http://www. ngsp.org/[place] Pdata.asp Ordering Provider: JOEL AYON Report Released Date/Time: Apr 04, 2023 09:22 AM Reporting Lab: [facility] [address] Performing Lab: [facility] [address] [facility] ([facility]) C-REACTIV E PROTEIN C REACTIVE PROTEIN [MASS/VOLUM E] IN SERUM OR PLASMA BY HIGH SENSITIVITY METHOD 1.13 <5.00 - 5.00 04/09 Specimen Type: PLASMA No comment entered. Ordering Provider: TAMRA FARRAR Report Released Date/Time: Feb 07, 2023 01:36 PM Reporting Lab: [facility] [address] Performing Lab: [facility] [address] [place] [facility] SED RATE ERYTHROCYTE SEDIMENTATI ON RATE 9 5 - 15 04/09 Specimen Type: BLOOD No comment entered. Ordering Provider: TAMRA FARRAR Report Released Date/Time: Feb 07, 2023 01:36 PM Reporting Lab: [facility] [address] Performing Lab: [facility] [address] [place] [facility] CBC & DIFF LEUKOCYTES [#/VOLUME] IN BLOOD BY AUTOMATED COUNT 10.25 4.0 - 11.0 04/09 Specimen Type: BLOOD Comment: Automated Differentia l Performed Ordering Provider: TAMRA FARRAR Report Released Date/Time: Feb 07, 2023 01:36 PM Reporting Lab: [facility] [address] Performing Lab: [facility] [address] [place] [facility] CBC & DIFF ERYTHROCYTE S [#/VOLUME] IN BLOOD BY AUTOMATED COUNT 5.04 4.6 - 6.2 04/09 Specimen Type: BLOOD Comment: Automated Differentia l Performed Ordering Provider: TAMRA FARRAR Report Released Date/Time: Feb 07, 2023 01:36 PM Reporting Lab: [facility] [address] Performing Lab: [facility] [address] [place] [facility] CBC & DIFF HEMOGLOBIN [MASS/VOLUM E] IN BLOOD 13.7 13.5 - 17.9 04/09 Specimen Type: BLOOD Comment: Automated Differentia l Performed Ordering Provider: TAMRA FARRAR Report Released Date/Time: Feb 07, 2023 01:36 PM Reporting Lab: [facility] [address] Performing Lab: [facility] [address] [place] [facility] CBC & DIFF HEMATOCRIT [VOLUME FRACTION] OF BLOOD BY AUTOMATED COUNT 42.6 41 - 54 04/09 Specimen Type: BLOOD Comment: Automated Differentia l Performed Ordering Provider: TAMRA FARRAR Report Released Date/Time: Feb 07, 2023 01:36 PM Reporting Lab: [facility] [address] Performing Lab: [facility] [address] [place] [facility] CBC & DIFF MCV [ENTITIC VOLUME] BY AUTOMATED COUNT 84.5 80 - 100 04/09 Specimen Type: BLOOD Comment: Automated Differentia l Performed Ordering Provider: TAMRA FARRAR Report Released Date/Time: Feb 07, 2023 01:36 PM Reporting Lab: [facility] [address] Performing Lab: [facility] [address] [place] [facility] CBC & DIFF MCH [ENTITIC MASS] BY AUTOMATED COUNT 27.2 27 - 33 04/09 Specimen Type: BLOOD Comment: Automated Differentia l Performed Ordering Provider: TAMRA FARRAR Report Released Date/Time: Feb 07, 2023 01:36 PM Reporting Lab: [facility] [address] Performing Lab: [facility] [address] [place] [facility] CBC & DIFF MCHC [MASS/VOLUM E] BY AUTOMATED COUNT 32.2 32.0 - 37.5 04/09 Specimen Type: BLOOD Comment: Automated Differentia l Performed Ordering Provider: TAMRA FARRAR Report Released Date/Time: Feb 07, 2023 01:36 PM Reporting Lab: [facility] [address] Performing Lab: [facility] [address] [place] [facility] CBC & DIFF PLATELETS [#/VOLUME] IN BLOOD BY AUTOMATED COUNT 308 150 - 400 04/09 Specimen Type: BLOOD Comment: Automated Differentia l Performed Ordering Provider: TAMRA FARRAR Report Released Date/Time: Feb 07, 2023 01:36 PM Reporting Lab: [facility] [address] Performing Lab: [facility] [address] [place] [facility] CBC & DIFF PLATELET MEAN VOLUME [ENTITIC VOLUME] IN BLOOD BY AUTOMATED COUNT 9.8 7.4 - 10.4 04/09 Specimen Type: BLOOD Comment: Automated Differentia l Performed Ordering Provider: TAMRA FARRAR Report Released Date/Time: Feb 07, 2023 01:36 PM Reporting Lab: [facility] [address] Performing Lab: [facility] [address] [place] [facility] CBC & DIFF NEUTROPHILS /100 LEUKOCYTES IN BLOOD BY MANUAL COUNT 80.7 40.0 - 80.0 04/09 H Specimen Type: BLOOD Comment: Automated Differentia l Performed Ordering Provider: TAMRA FARRAR Report Released Date/Time: Feb 07, 2023 01:36 PM Reporting Lab: [facility] [address] Performing Lab: [facility] [address] [place] [facility] CBC & DIFF LYMPHOCYTES /100 LEUKOCYTES IN BLOOD BY MANUAL COUNT 14.0 15.0 - 45.0 04/09 L Specimen Type: BLOOD Comment: Automated Differentia l Performed Ordering Provider: TAMRA FARRAR Report Released Date/Time: Feb 07, 2023 01:36 PM Reporting Lab: [facility] [address] Performing Lab: [facility] [address] [place] [facility] CBC & DIFF MONOCYTES/1 00 LEUKOCYTES IN BLOOD BY AUTOMATED COUNT 4.0 2.0 - 12.0 04/09 Specimen Type: BLOOD Comment: Automated Differentia l Performed Ordering Provider: TAMRA FARRAR Report Released Date/Time: Feb 07, 2023 01:36 PM Reporting Lab: [facility] [address] Performing Lab: [facility] [address] [place] [facility] CBC & DIFF EOSINOPHILS /100 LEUKOCYTES IN BLOOD BY AUTOMATED COUNT 0.4 0.0 - 6.0 04/09 Specimen Type: BLOOD Comment: Automated Differentia l Performed Ordering Provider: TAMRA FARRAR Report Released Date/Time: Feb 07, 2023 01:36 PM Reporting Lab: [facility] [address] Performing Lab: [facility] [address] [place] [facility] CBC & DIFF BASOPHILS/1 00 LEUKOCYTES IN BLOOD BY MANUAL COUNT 0.4 0.0 - 2.0 04/09 Specimen Type: BLOOD Comment: Automated Differentia l Performed Ordering Provider: TAMRA FARRAR Report Released Date/Time: Feb 07, 2023 01:36 PM Reporting Lab: [facility] [address] Performing Lab: [facility] [address] [place] [facility] CBC & DIFF ERYTHROCYTE DISTRIBUTIO N WIDTH [RATIO] BY AUTOMATED COUNT 17.0 11.5 - 14.5 04/09 H Specimen Type: BLOOD Comment: Automated Differentia l Performed Ordering Provider: TAMRA FARRAR Report Released Date/Time: Feb 07, 2023 01:36 PM Reporting Lab: [facility] [address] Performing Lab: [facility] [address] [place] [facility] CBC & DIFF LYMPHOCYTES [#/VOLUME] IN BLOOD BY AUTOMATED COUNT 1.43 1.0 - 4.0 04/09 Specimen Type: BLOOD Comment: Automated Differentia l Performed Ordering Provider: TAMRA FARRAR Report Released Date/Time: Feb 07, 2023 01:36 PM Reporting Lab: [facility] [address] Performing Lab: [facility] [address] [place] [facility] CBC & DIFF MONOCYTES [#/VOLUME] IN BLOOD BY AUTOMATED COUNT 0.41 0.1 - 1.0 04/09 Specimen Type: BLOOD Comment: Automated Differentia l Performed Ordering Provider: TAMRA FARRAR Report Released Date/Time: Feb 07, 2023 01:36 PM Reporting Lab: [facility] [address] Performing Lab: [facility] [address] [place] [facility] CBC & DIFF NEUTROPHILS [#/VOLUME] IN BLOOD BY AUTOMATED COUNT 8.28 2.0 - 7.7 04/09 H Specimen Type: BLOOD Comment: Automated Differentia l Performed Ordering Provider: TAMRA FARRAR Report Released Date/Time: Feb 07, 2023 01:36 PM Reporting Lab: [facility] [address] Performing Lab: [facility] [address] [place] [facility] CBC & DIFF EOSINOPHILS [#/VOLUME] IN BLOOD BY AUTOMATED COUNT 0.04 0 - 0.5 04/09 Specimen Type: BLOOD Comment: Automated Differentia l Performed Ordering Provider: TAMRA FARRAR Report Released Date/Time: Feb 07, 2023 01:36 PM Reporting Lab: [facility] [address] Performing Lab: [facility] [address] [place] [facility] CBC & DIFF BASOPHILS [#/VOLUME] IN BLOOD BY AUTOMATED COUNT 0.04 0 - 0.2 04/09 Specimen Type: BLOOD Comment: Automated Differentia l Performed Ordering Provider: TAMRA FARRAR Report Released Date/Time: Feb 07, 2023 01:36 PM Reporting Lab: [facility] [address] Performing Lab: [facility] [address] [place] [facility] CBC & DIFF IG(META,MYE LO,PRO) 0.5 04/09 Specimen Type: BLOOD Comment: Automated Differentia l Performed Ordering Provider: TAMRA FARRAR Report Released Date/Time: Feb 07, 2023 01:36 PM Reporting Lab: [facility] [address] Performing Lab: [facility] [address] [place] [facility] CBC & DIFF IMMATURE GRANULOCYTE S [PRESENCE] IN BLOOD BY AUTOMATED COUNT 0.05 0 - 0.1 04/09 Specimen Type: BLOOD Comment: Automated Differentia l Performed Ordering Provider: TAMRA FARRAR Report Released Date/Time: Feb 07, 2023 01:36 PM Reporting Lab: [facility] [address] Performing Lab: [facility] [address] [place] [facility] CBC & DIFF PLATELETS RETICULATED /100 PLATELETS IN BLOOD BY AUTOMATED COUNT 2.8 0 - 10 04/09 Specimen Type: BLOOD Comment: Automated Differentia l Performed Ordering Provider: TAMRA FARRAR Report Released Date/Time: Feb 07, 2023 01:36 PM Reporting Lab: [facility] [address] Performing Lab: [facility] [address] [facility] Vital Signs Combined list of inpatient and outpatient Vital Signs from Department of Defense and Veterans Affairs, ranging from 12 months to all on record, depending upon the facility. Vital Sign Value Date Comments Source SYSTOLIC BLOOD PRESSURE 132 07/25/2023 14:11:01 [facility] ([facility]) DIASTOLIC BLOOD PRESSURE 66 07/25/2023 14:11:01 [facility] ([facility]) PULSE OXIMETRY 96% 07/25/2023 14:11:01 [place] ([facility]) WEIGHT 213.9 07/25/2023 14:11:01 [facility] ([facility]) BMI 33kg/m2 07/25/2023 14:11:01 [facility] ([facility]) PAIN 2 07/25/2023 14:11:01 [facility] [place] ([facility]) TEMPERATURE 97.8 07/25/2023 14:11:01 [place] [place] ([facility]) PULSE 61 07/25/2023 14:11:01 [facility] ([facility]) SYSTOLIC BLOOD PRESSURE 151 07/11/2023 08:45:34 [facility] ([facility]) DIASTOLIC BLOOD PRESSURE 69 07/11/2023 08:45:34 [facility] ([facility]) PULSE OXIMETRY 95% 07/11/2023 08:45:34 [place] ([facility]) WEIGHT 212.9 07/11/2023 08:45:34 [facility] ([facility]) BMI 33kg/m2 07/11/2023 08:45:34 [facility] ([facility]) PAIN 1 07/11/2023 08:45:34 [facility] ([facility]) HEIGHT 67.48 07/11/2023 08:45:34 [facility] ([facility]) TEMPERATURE 98.6 07/11/2023 08:45:34 [facility] [place] ([facility]) PULSE 68 07/11/2023 08:45:34 [facility] ([facility]) RESPIRATION 18 07/11/2023 08:45:34 [facility] [place] ([facility]) SYSTOLIC BLOOD PRESSURE 167 04/17/2023 10:02:23 [facility] ([facility]) DIASTOLIC BLOOD PRESSURE 87 04/17/2023 10:02:23 [facility] ([facility]) PULSE OXIMETRY 97% 04/17/2023 10:02:23 [place] ([facility]) WEIGHT 211.5 04/17/2023 10:02:23 [facility] ([facility]) BMI 33kg/m2 04/17/2023 10:02:23 [facility] ([facility]) PAIN 2 04/17/2023 10:02:23 [facility] ([facility]) TEMPERATURE 96.7 04/17/2023 10:02:23 [place] [place] ([facility]) PULSE 64 04/17/2023 10:02:23 [facility] ([facility]) RESPIRATION 16 04/17/2023 10:02:23 [facility] [place] ([facility]) SYSTOLIC BLOOD PRESSURE 135 03/04/2023 13:43:21 [facility] DIASTOLIC BLOOD PRESSURE 66 03/04/2023 13:43:21 [facility] PULSE OXIMETRY 97% 03/04/2023 13:43:21 [facility] WEIGHT 202.5 03/04/2023 13:43:21 [facility] BMI 31kg/m2 03/04/2023 13:43:21 [facility] PAIN 0 03/04/2023 13:43:21 [facility] TEMPERATURE 96.8 03/04/2023 13:43:21 [facility] PULSE 71 03/04/2023 13:43:21 [facility] RESPIRATION 17 03/04/2023 13:43:21 [facility] SYSTOLIC BLOOD PRESSURE 138 02/07/2023 12:43:35 [facility] DIASTOLIC BLOOD PRESSURE 68 02/07/2023 12:43:35 [facility] PULSE OXIMETRY 96% 02/07/2023 12:43:35 [facility] [place] [facility] WEIGHT 199.3 02/07/2023 12:43:35 [facility] [place] [facility] BMI 31kg/m2 02/07/2023 12:43:35 [place] [facility] PAIN 2 02/07/2023 12:43:35 [facility] TEMPER[facility] 97.3 02/07/2023 12:43:35 [facility] PULSE 61 02/07/2023 12:43:35 [facility] RESPIRATION 16 02/07/2023 12:43:35 [facility] Encounters Combined list of: 1) Encounters from Department of [facility] facilities going back up to thelast 18 months. 2) Encounters from the Department of [facility] facilities going back up to 280 months. Location Location Details Encounter Type Encounter Number Reason For Visit Attending Provider ADM Date DC Date Status Disposition Source [facility] ([facility] BY PHARM ADDL 15 MIN [id number] Diagnos is: ICD-10- CM E11.9 Type 2 diabete s mellitu s without complic ations< br/> HARDER,SASHA LY 02/13 [place] ([facility]) [facility] IMG RTA DETCJ/MNTR DS STAFF [id number] Diagnos is: ICD-10- CM Z01.00 Encount er for exam of eyes and vision w/o abnorma l finding s
DAVI CHACON 02/16 [facility] [place] [facility] OPTIC NERVE [id number] Diagnos is: ICD-10- CM Z01.01 Encount er for exam of eyes and vision w abnorma l finding s
CARLOTA MOREL 02/19 [facility] [place] [facility] Outpatient Encounter [id number] 02/26 [facility]) MTMS BY PHARM ADDL 15 MIN [id number] Diagnos is: ICD-10- CM E11.9 Type 2 diabete s mellitu s without complic ations< br/> HARDER,SASHA LY 03/27 [place] ([facility]) [facility] PRO PHONE CALL 21-30 MIN [id number] Diagnos is: ICD-10- CM E11.65 Type 2 diabete s mellitu s with hypergl ycemia< br/> TIM BOYKIN 06/04 [facility] Outpatient Encounter [id number] 06/27 [place] [facility] Outpatient Encounter [id number] JAMES RYAN NATALIO 06/28 [facility] Outpatient Encounter [id number] [id number] 07/09 [facility] Outpatient Encounter [id number] 07/11 [facility] ([facility] OFFICE O/P EST MOD 30-39 MIN [id number] [id number] Diagnos is: ICD-10- CM E11.9 Type 2 diabete s mellitu s without complic ations< br/> JAMES RYAN TEJA LANCE 07/12 [facility] ([facility]) [facility] Outpatient Encounter [id number] Diagnos is: ICD-10- CM E11.9 Type 2 diabete s mellitu s without complic ations< br/> LAILA FROST 07/12 [facility] Outpatient Encounter [id number] 07/13 [facility] PRO PHONE CALL 21-30 MIN [id number] [id number] Diagnos is: ICD-10- CM E11.9 Type 2 diabete s mellitu s without complic ations< br/> TIM BOYKIN 07/19 [facility] ([facility]) OFF/OP EST MAY X REQ PHY/QHP 46322-5.61 [id number] Diagnos is: ICD-10- CM E11.9 Type 2 diabete s mellitu s without complic ations< br/> ANIBAL MULLINS 08/07 [place] [facility] ([facility] ([facility]) CONT GLUC MNTR ANALYSIS I&R 65372-4.61 [id number] Diagnos is: ICD-10- CM E11.9 Type 2 diabete s mellitu s without complic ations< br/> HARDER,SASHA LY 08/21 [place] [facility] ([facility]) OFFICE O/P EST MOD 30-39 MIN 19836-4.61 [id number] Diagnos is: ICD-10- CM E11.9 Type 2 diabete s mellitu s without complic ations< br/> CONNORJAMES LANCE 09/04 [facility] (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) OFFICE O/P EST MOD 30-39 MIN 06084-5.61 [id number] Diagnos is: ICD-10- CM I50.9 Heart failure , unspeci fied
CONNORJAMES LANCE 10/01 [facility] ([facility]) [facility] Outpatient Encounter [id number] 10/01 [place] [facility] Outpatient Encounter [id number] [id number] 10/01 [place] [facility] Outpatient Encounter [id number] 10/05 [place] 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
HARDER,SASHA LY 10/19 [facility] ([facility]) [facility] ELECTROCAR DIOGRAM COMPLETE [id number] [id number] Diagnos is: ICD-10- CM Z13.6 Encount er for screeni ng for cardiov ascular disorde rs
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
Erwin FREEDMAN 10/23 [facility] Outpatient Encounter [id number] AMARILIS SAMPSON 11/08 [facility]) OFF/OP EST MAY X REQ PHY/QHP 25900-8.61 [id number] Diagnos is: ICD-10- CM E10.40 Type 1 diabete s mellitu s with diabeti c neuropa thy, unsp
SHERRY VARGAS W 11/16 [place] [facility]) [facility] Outpatient Encounter [id number] 11/16 [facility] ([facility]) MTPA BY PHARM ADDL 15 MIN 06563-8.61 [id number] Diagnos is: ICD-10- CM E10.40 Type 1 diabete s mellitu s with diabeti c neuropa thy, unsp
HARDER,SASHA LY 12/04 [facility] ([facility]) [facility] Outpatient Encounter [id number] [id number] EUGENIA HAYES 12/11 [facility] ([facility]) OFFICE O/P EST LOW 20-29 MIN 16499-1.61 [id number] 01 Diagnos is: ICD-10- CM M79.643 Pain in unspeci fied hand
ANURAG MADDOX 12/11 [place] [facility] ([facility]) [facility]) MTMS BY PHARM ADDL 15 MIN 55730-3.61 [id number] 20 Diagnos is: ICD-10- CM E10.40 Type 1 diabete s mellitu s with diabeti c neuropa thy, unsp
HARDER,SASHA LY 01/01 [place] [facility] (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) [facility] (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
HARDER,SASHA LY 02/05 [facility] (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
JOHNNY RAMOS 02/18 [facility] ([facility]) IMG RTA DETCJ/MNTR DS STAFF 30476-061 [id number] Diagnos is: ICD-10- CM Z01.01 Encount er for exam of eyes and vision w abnorma l finding s
DELL HILL 02/19 [facility] ([facility]) [facility] Outpatient Encounter [id number] Diagnos is: ICD-10- CM Z01.01 Encount er for exam of eyes and vision w abnorma l finding s
DANIEL TADEO 02/20 [facility] (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 (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
HARDER,SASHA LY 03/12 [facility] ([facility]) [facility] Outpatient Encounter [id number] [id number] ALL GALDAMEZ Celeste Hood 04/02 [facility] (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
HARDER,SASHA LY 04/04 [facility] ([facility]) [facility] Outpatient Encounter [id number] [id number] 04/10 [place] [facility] (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) [facility] Outpatient Encounter [id number] [id number] 04/18 [facility] (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
HARDER,SASHA LY 05/09 [facility] (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
HARDER,SASHA LY 06/13 [place] [facility] ([facility]) [facility] Outpatient Encounter [id number] [id number] 07/11 [facility] ([facility]) Outpatient Encounter [id number] [id number] Diagnos is: ICD-10- CM I10 Essenti al (primar y) hyperte nsion<b r/> GARCÍAOLIVER NGUYỄN A 07/11 [facility] ([facility]) [facility] Outpatient Encounter [id number] [id number] Martha ZIMMER 07/15 [facility] ([facility]) MTMS BY PHARM ADDL 15 MIN 57996-3.61 [id number] 17 Diagnos is: ICD-10- CM E10.9 Type 1 diabete s mellitu s without complic ations< br/> HARDER,SASHA LY 07/18 [facility] ([facility]) [facility] Outpatient Encounter [id number] [id number] LAZARO AGUDELO 07/24 [facility] (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 Diagnos is: ICD-10- CM E10.9 Type 1 diabete s mellitu s without complic ations< br/> CATALINA THELMA 08/05 [place] [facility] Social History Combined list of available smoking, tobacco, and other social history from Department of Defense and Veterans Affairs facilities. Social History Type Response Date Comment Sourc e Tobacco smoking status NHIS [facility] FORMER USER 07/11/2023 [facility] ([facility]) History of tobacco use VA-TOBACCO QUIT 5 TO < 15 YRS 07/11/2023 [facility] ([facility]) History of tobacco use [facility]CO FORMER USER 07/12/2022 [facility] ([facility]) History of tobacco use [facility]CO FORMER USER 07/13/2021 [facility] ([facility]) History of tobacco use [facility]CO FORMER USER 06/28/2020 [facility] ([facility]) History of tobacco use VA-TOBACCO QUIT 5 TO < 15 YRS 03/23/2019 [facility] ([facility]) History of tobacco use [facility]BACCO FORMER USER 04/01/2018 [facility] ([facility]) History of tobacco use FORMER TOBACCO US ER 7Y OR GREATER 06/28/2017 [facility] ([facility]) History of tobacco use FORMER TOBACCO US E >1Y <7Y 06/29/2016 [facility] ([facility]) Plan of Care List of future care activities from Department of Veterans Affairs facilities. Additional future care activities may be listed in the Assessment and Plan section. Date/Time Care Activity Care Activity Detail Facili ty 08/27/2023 AMBULATORY - NONE AMBULATORY - NONE [facility] ([facility])
--- OUTSIDE RECORDS SUMMARY | 2023-08-14 09:34 | XMS_ITS | Encounter Summary ---
Author Name Department of [facility] Organization Department of [facility] Address [address] [place] [address] Support Name Relationship Address Phone BREE KHOURY Next of Kin [address] [place] [address] BREE KHOURY Emergency Contact [address] [place] [address] Insurance Providers: All historical and current Section Date Range: From patient's date of to the date document was created. This section includes the names of all active insurance providers for the patient. Insurance Provider Type of Coverage Plan Name Start of Policy Coverage End of Policy Coverage Group Number Member ID Insurance Provider's Telephone Number Policy Vaughn's Name Patient's Relationship to Policy Vaughn HUMANA MCR (WNR) MEDICARE ADVANTAGE [facility] (WNR) Jul 29, 2021 [id number] [phone] KHOURY,WE SLEY PATIENT HUMANA MCR (WNR) MEDICARE ADVANTAGE MCR (WNR) Jul 29, 2015 [id number] KHOURY,WE SLEY PATIENT [employer]NA MCR (WNR) MEDICARE ADVANTAGE MCR (WNR) Jul 29, 2015 [id number] KHOURY,WE SLEY PATIENT [employer] MCR (WNR) MEDICARE ADVANTAGE [facility] (WNR) Jul 29, 2015 [id number] [phone] KHOURY,WE SLEY PATIENT Selected Encounter This section includes the information on record at [place] for the Encounter. Date/Time Encounter Type Encounter Description Reason Pro vider Source Oct 01, 2022 10:17 AM Outpatient Encounter CARDIOLOGY IHE Encounter Template Text not used by [facility] Plan of Treatment: Future Appointments (+ 6 months) and Future Tests (+/- 45 days) The Plan of Treatment section includes future care activities for the [facility] This section includes future appointments and future orders which are active, pending or scheduled. Future Appointments This section includes appointments that were scheduled to occur 6 months from the date of the Encounter, up to a maximum of 20 appointments. The data comes from all [place] treatment facilities. Appointment Date/Time Appointment Type Appointme nt Facility Name Oct 15, 2022 02:00 PM [facility] [place] [facility] Oct 19, 2022 10:30 AM [facility] Oct 22, 2022 12:15 PM [facility] [place] [place] [facility] Oct 22, 2022 12:30 PM [facility]ULATORY - MEDICINE [facility] Nov 16, 2022 10:30 AM [facility] December 04, 2022 10:00 AM AMBULATORY - NONE [facility] December 11, 2022 11:30 AM [facility] Jan 01, 2023 02:00 PM AMBULATORY - NONE [facility] Jan 01, 2023 02:30 PM [facility] Jan 09, 2023 11:30 AM [facility] Jan 16, 2023 10:00 AM [facility] Feb 05, 2023 10:00 AM [facility]ATORY - NONE [facility] Feb 07, 2023 01:00 PM [facility]ULATORY - MEDICINE [facility] Feb 07, 2023 02:15 PM AMBULATORY - MEDICINE [facility] Feb 18, 2023 11:00 AM [facility] Feb 19, 2023 08:00 AM AMBULATORY - NONE [facility] Feb 22, 2023 01:30 PM [facility] Mar 04, 2023 02:30 PM AMBULATORY - MEDICINE [facility] Mar 12, 2023 11:30 AM AMBULATORY - NONE [facility] Lab Results: +/- 30 days of the encounter This section includes the Chemistry and Hematology Lab Results on record with [place] for the patient. Radiology Reports and Pathology Reports are provided separately, in subsequent sections. Lab Results This section contains the Chemistry/Hematology Results that were resulted 30 days before or 30 daysafter the date of the Encounter. Date/Time Source Result Type Result - Unit Interpretation Reference Range Comment Oct 22, 2022 01:51 PM [facility] BNP Specimen Type: PLASMA No comment entered. Ordering Provider: OSMANY RIVERA Report Released Date/Time: Oct 22, 2022 01:37 PM Reporting Lab: [facility] [id number] Performing Lab: [facility] [address] BNP 105 H <99 Oct 22, 2022 01:51 PM [facility] LIPID PANEL,NON-FASTING Specimen Type: PLASMA No comment entered. Ordering Provider: OSMANY RIVERA Report Released Date/Time: Oct 22, 2022 01:37 PM Reporting Lab: [facility] [address] Performing Lab: [facility] [address] CHOLESTEROL 118 <199 .HDL 30 L >40 LDL CALCULATION 67 <99 VLDL CALCULATION 21 <29 NON HDL CHOLESTEROL 88 <129 TRIG(NON FASTING) 106 <149 Oct 01, 2022 09:41 AM [place] ([facility]) BASIC METABOLIC PANEL+MG Specimen Type: PLASMA No comment entered. Ordering Provider: ADRIENNE CROW Report Released Date/Time: Oct 01, 2022 09:30 AM Reporting Lab: [facility] [phone] Performing Lab: [facility] [address] CREATININE 0.8 0.7-1.2 UREA NITROGEN 20 8-26 GLUCOSE 146 H 70-100 SODIUM 140 136-145 POTASSIUM 4.0 3.5-5.1 CHLORIDE 103 98-107 CO2 28 22-29 CALCIUM 9.3 8.4-10.2 MAGNESIUM 1.7 1.6-2.6 ANION GAP 9 5-15 CREAT EGFR(CKD-EPI) >90 >60 Oct 01, 2022 09:41 AM [place] ([facility]) CBC Specimen Type: BLOOD No comment entered. Ordering Provider: ADRIENNE CROW Report Released Date/Time: Oct 01, 2022 09:30 AM Reporting Lab: [facility] [address] Performing Lab: [facility] [address] WBC 9.32 4.0-11.0 RBC 5.08 4.6-6.2 HGB 13.3 L 13.5-17.9 HCT 42.3 41-54 MCV 83.3 80-100 MCH 26.2 L 27-33 MCHC 31.4 L 32.0-37.5 PLT 484 H 150-400 MPV 9.3 7.4-10.4 RDW 14.1 11.5-14.5 Sep 04, 2022 11:47 AM [place] ([facility]) URINALYSIS Specimen Type: URINE No comment entered. Ordering Provider: ADRIENNE CROW Report Released Date/Time: Sep 04, 2022 11:40 AM Reporting Lab: [facility] [address] Performing Lab: [facility] [address] URINE COLOR COLORLESS SPECIFIC GRAVITY 1.022 1.003-1.03 5 URINE BILIRUBIN NEGATIVE NEGATIVE URINE KETONES NEGATIVE NEGATIVE URINE GLUCOSE >1000 <30 URINE PROTEIN NEGATIVE <20 URINE PH 5.0 5.0-8.0 URINE WBC/HPF <1 0-7 URINE BACTERIA NONE SEEN URINE RBC/HPF NONE SEEN 0-3 APPEARANCE CLEAR SQUAMOUS EPITHELIAL NONE SEEN URINE BLOOD NEGATIVE NEGATIVE URINE NITRITE NEGATIVE NEGATIVE LEUKOCYTE ESTERASE NEGATIVE NEGATIVE Sep 04, 2022 11:46 AM [facility] C-PEPTIDE Specimen Type: SERUM Comment: Test Performed by [facility], [address] [place] [address] [place] M.D., Ph.D., Director of Laboratories , [place] [id number] Ordering Provider: JUANCARLOS BOYKIN Report Released Date/Time: Jul 19, 2022 09:30 AM Reporting Lab: [facility] [address] Performing Lab: [address] C-PEPTIDE <0.10 L 0.80-3.85 Sep 04, 2022 11:46 AM [facility] KSENIA-65 ANTIBODY Specimen Type: SERUM Comment: REFERENCE RANGE: <5 IU/mL This test was performed using the GAD65 ZOHRA method, which is standardized against the International reference preparation 97/550. Test Performed by [facility], [address] [place] [address] [place] M.D., Ph.D., Director of Laboratories , [facility] [id number] Ordering Provider: JUANCARLOS BOYKIN Report Released Date/Time: Jul 19, 2022 09:30 AM Reporting Lab: [facility] [phone] Performing Lab: [facility] [address] [facility] KSENIA-65 ANTIBODY >250 H See_Commen t Sep 04, 2022 11:46 AM [facility] GLUCOSE Specimen Type: PLASMA No comment entered. Ordering Provider: JUANCARLOS BOYKIN Report Released Date/Time: Jul 19, 2022 09:30 AM Reporting Lab: [facility] [phone] Performing Lab: [facility] [address] GLUCOSE 130 H 70-100 Sep 04, 2022 11:46 AM [place] ([facility]) HEMOGLOBIN A1C Specimen Type: BLOOD Comment: Values obtained from A1C measurements can vary. For typical A1C assays, a reported value of 7.0 could actually be between 6.7 and 7.3 if measured by a reference method. A reported value of 9.0 could actually be between 8.7 and 9.3. Ref: http://www.ngs p.org/CAPdata. asp Ordering Provider: ADRIENNE CROW Report Released Date/Time: Sep 04, 2022 11:36 AM Reporting Lab: [facility] [address] Performing Lab: [facility] [address] HEMOGLOBIN A1C 9.5 H 4.0-6.0 Sep 04, 2022 11:46 AM [place] ([facility]) BNP Specimen Type: PLASMA No comment entered. Ordering Provider: ADRIENNE CROW Report Released Date/Time: Sep 04, 2022 11:36 AM Reporting Lab: [facility] [address] Performing Lab: [facility] [address] BNP <10 <99 Sep 04, 2022 11:46 AM [place] [facility]) CBC Specimen Type: BLOOD No comment entered. Ordering Provider: ADRIENNE CROW Report Released Date/Time: Sep 04, 2022 11:37 AM Reporting Lab: [facility] [phone] Performing Lab: [facility] [address] WBC 7.80 4.0-11.0 RBC 5.42 4.6-6.2 HGB 14.8 13.5-17.9 HCT 44.9 41-54 MCV 82.8 80-100 MCH 27.3 27-33 MCHC 33.0 32.0-37.5 PLT 355 150-400 MPV 9.5 7.4-10.4 RDW 14.3 11.5-14.5 Sep 04, 2022 11:46 AM [place] ([facility]) COMPREHENSIVE METABOLIC PANEL+MG Specimen Type: PLASMA No comment entered. Ordering Provider: ADRIENNE CROW Report Released Date/Time: Sep 04, 2022 11:36 AM Reporting Lab: [facility] [address] Performing Lab: [facility] [address] CREATININE 0.8 0.7-1.2 UREA NITROGEN 18 8-26 GLUCOSE 130 H 70-100 SODIUM 139 136-145 POTASSIUM 3.8 3.5-5.1 CHLORIDE 102 98-107 CO2 25 22-29 CALCIUM 9.6 8.4-10.2 PROTEIN,TOTAL 7.7 6.0-8.3 ALBUMIN 4.0 3.5-5.2 BILIRUBIN, TOTAL 0.5 0.2-1.2 MAGNESIUM 1.7 1.6-2.6 ANION GAP 12 5-15 ALKALINE PHOSPHATASE 108 40-150 ALT/SGPT 17 <55 AST/SGOT 18 <34 CREAT EGFR(CKD-EPI) >90 >60 Radiology Reports: +/- 30 days of the encounter Radiology Reports For cases when an order for radiology services may have been completed prior to the date of the Encounter, the report list includes the Radiology Reports that were completed up to 30 days before dateof the Encounter. For cases when an order for radiology services may have been completed after the date of the Encounter, the report list also includes the Radiology Reports that were completed up to30 days after date of the Encounter. The data comes from all [facility] facilities. Date/Time Radiology Report Provider Source Sep 04, 2022 11:46 AM CHEST 2 VIEWS PA A ND LAT: LU[facility] KHOURY [id number] M Exm Date: SEP 04, 2022@11:46 Req Phys: ADRIENNE CROW Pat Loc: [facility] (Req'g Loc Img Loc: [facility] RADIOLOG[facility] Service: Unknown (Case [id number] COMPLETE) CHEST 2 VIEWS PA AND LAT (RAD Detailed) CPT:86330 Reason for Study: ankle sweling, sob Clinical History: IS NOT under investigation for COVID-19 or is COVID-19 negative ankle swelling, sob Responsible provider name and phone number to notify for critical findings if other than user placing the order and pager listed below: User placing orders pager: adrienne crow LAST CREATININE 0.9 (07/12/22) Report Status: Verified Date Reported: SEP 04, 2022 Date Verified: SEP 04, 2022 Appeals Nurse E-Sig:/ES/GENE LORA MD Report: DATE/TIME REGISTERED: 09/04/2022 11:46 AM STUDY: CHEST 2 VIEWS PA AND LAT HISTORY: ankle sweling, sob No prior studies. FINDINGS: 2 views of the chest reveal a normal cardiac silhouette and pulmonary vascular pattern. The thoracic aorta is somewhat tortuous. The lungs are clear. Degenerative changes in the thoracic spine are noted and are consistent with age. There is no evidence of pneumothorax and no displaced rib fractures are seen. The upper abdominal gas pattern is unremarkable. Impression: 1. Normal two-view chest for age. Primary Interpreting Staff: GENE LORA MD, RADIOLOGIST (Appeals Nurse) /GENE RIVAS [facility]
--- OUTSIDE RECORDS SUMMARY | 2023-08-14 09:34 | XMS_ITS | Encounter Summary ---
Author Name Department of [facility] Organization Department of [facility] Address [address] [place] [address] Support Name Relationship Address Phone BREE KHOURY Next of Kin [address] [place] [address] BREE KHOURY Emergency Contact [address] [place] [address] Insurance Providers: All historical and [...] Policy Vaughn HUMANA MCR (WNR) MEDICARE ADVANTAGE [facility] (WNR) Jul 29, 2021 [id number] KHOURY,WE SLEY PATIENT HU[employer] MCR (WNR) MEDICARE ADVANTAGE [facility] (WNR) Jul 29, 2015 [id number] KHOURY,WE SLEY PATIENT HUMANA MCR (WNR) MEDICARE ADVANTAGE [facility] (WNR) Jul 29, 2015 [id number] KHOURY,WE SLEY PATIENT [employer]NA MCR (WNR) MEDICARE ADVANTAGE [facility] (WNR) Jul 29, 2015 [id number] 1 [id number] KHOURY,WE SLEY PATIENT Selected Encounter This section includes the information on record at [place] for the Encounter. Date/Time Encounter Type Encounter Description Reason Pro vider Source Apr 10, 2023 07:52 AM Outpatient Encounter CLINICAL PHARMACY IHE Encounter Template Text not used by [facility] Plan of Treatment: Future Appointments (+ 6 months) and Future Tests (+/- 45 days) The Plan of Treatment section includes future care activities for the patient [facility] [place] [facility] This section includes future appointments and future orders which are active, pending or scheduled. Future Appointments This section includes appointments that were scheduled to occur 6 months from the date of the Encounter, up to a maximum of 20 appointments. The data comes from all [place] treatment facilities. Appointment Date/Time Appointment Type Appointme nt Facility Name Apr 17, 2023 10:00 AM [facility]ORY - [facility]ICINE [facility] May 09, 2023 08:15 AM AMBULATORY - NONE [facility] May 09, 2023 08:45 AM [facility]ORY - NONE [facility] Jun 13, 2023 08:45 AM AMB[facility]ATORY - NONE [facility] Jul 11, 2023 08:45 AM [facility] - [facility]ICINE [facility] Jul 11, 2023 10:15 AM AMB[facility]ATORY - NONE [facility] Jul 18, 2023 08:45 AM [facility]ORY - NONE [facility] Jul 25, 2023 02:15 PM [facility] - [facility]ICINE [facility] Jul 25, 2023 02:30 PM AMBULATORY - MEDICINE [facility] Aug 27, 2023 02:00 PM AMBULATORY - NONE [facility] Sep 05, 2023 02:00 PM AMBULATORY - MEDICINE [facility] Sep 05, 2023 03:00 PM [place]ORY - NONE [place] [facility] Lab Results: +/- 30 days of the encounter This section includes the Chemistry and Hematology Lab Results on record with [place] for the patient. Radiology Reports and Pathology Reports are provided separately, in subsequent sections. Lab Results This section contains the Chemistry/Hematology Results that were resulted 30 days before or 30 daysafter the date of the Encounter. Date/Time Source Result Type Result - Unit Interpretation Reference Range Comment May 09, 2023 08:09 AM [place] [facility] HEMOGLOBIN A1C Specimen Type: BLOOD Comment: Values obtained from A1C measurements can vary. For typical A1C assays, a reported value of 7.0 could actually be between 6.7 and 7.3 if measured by a reference method. A reported value of 9.0 could actually be between 8.7 and 9.3. Ref: http://www.ngs p.org/CAPdata. asp Ordering Provider: HELEN AYON Report Released Date/Time: Apr 04, 2023 09:22 AM Reporting Lab: [facility] [address] Performing Lab: [facility] [address] HEMOGLOBIN A1C 9.1 H 4.0-6.0 Apr 09, 2023 01:[address] [facility] C-REACTIVE PROTEIN Specimen Type: PLASMA No comment entered. Ordering Provider: DELIA FARRAR Report Released Date/Time: Feb 07, 2023 01:36 PM Reporting Lab: [facility] [address] Performing Lab: [facility] [address] C-REACTIVE PROTEIN 1.13 <5.00 Apr 09, 2023 01:[address] [facility] SED RATE Specimen Type: BLOOD No comment entered. Ordering Provider: DEILA FARRAR Report Released Date/Time: Feb 07, 2023 01:36 PM Reporting Lab: [facility] [address] Performing Lab: [facility] [address] SED RATE 9 5-15 Apr 09, 2023 01:[address] [facility] CBC & DIFF Specimen Type: BLOOD Comment: Automated Differential Performed Ordering Provider: DELIA FARRAR Report Released Date/Time: Feb 07, 2023 01:36 PM Reporting Lab: [facility] [address] Performing Lab: [facility] [address] WBC 10.25 4.0-11.0 RBC 5.04 4.6-6.2 HGB 13.7 13.5-17.9 HCT 42.6 41-54 MCV 84.5 80-100 MCH 27.2 27-33 MCHC 32.2 32.0-37.5 PLT 308 150-400 MPV 9.8 7.4-10.4 NEUT 80.7 H 40.0-80.0 LYMPHS 14.0 L 15.0-45.0 MONO 4.0 2.0-12.0 EOSINO 0.4 0.0-6.0 BASO 0.4 0.0-2.0 RDW 17.0 H 11.5-14.5 ABS LYMPH 1.43 1.0-4.0 ABS MONO 0.41 0.1-1.0 ABS NEUT 8.28 H 2.0-7.7 ABS EOS 0.04 0-0.5 ABS BASO 0.04 0-0.2 IG(META,MYEL O,PRO) 0.5 ABS IMMATURE GRAN 0.05 0-0.1 IPF 2.8 0-10 Apr 09, 2023 01:47 PM [facility] HEMOGLOBIN A1C Specimen Type: BLOOD Comment: Values obtained from A1C measurements can vary. For typical A1C assays, a reported value of 7.0 could actually be between 6.7 and 7.3 if measured by a reference method. A reported value of 9.0 could actually be between 8.7 and 9.3. Ref: http://www.ngs p.org/CAPdata. asp Ordering Provider: HELEN AYON Report Released Date/Time: Mar 14, 2023 08:31 AM Reporting Lab: [facility] [address] Performing Lab: [facility] [address] HEMOGLOBIN A1C 9.7 H 4.0-6.0 Social History: Smoking Status (Most current) and Tobacco Use (All prior to encounter date) This section includes the most current, and the historical, smoking and tobacco- related health factors from the [place] facility where the Encounter took place. Current Smoking Status This section includes the most current smoking, or tobacco-related health factor, from the [place] facility where the Encounter took place. Date/Time Current Smoking Status Comment Facil ity Jul 12, 2022 09:45 AM [place]-TOBACCO FORMER USER [facility] Tobacco Use History This section includes a history of the smoking, or tobacco-related health factors, that were collected on or before the date of the Encounter. The data comes from the [place] facility where the Encounter took place. Date/Time Smoking Status/Tobacco Use Comment F acility Jul 12, 2022 09:45 AM [facility]-TOBACCO QUIT 5 TO < 15 YRS [facility] Jul 13, 2021 09:15 AM VA-TOBACCO FORMER USER [facility] Jul 13, 2021 09:15 AM VA-TOBACCO QUIT 5 TO < 15 YRS [facility] Jun 28, 2020 09:15 AM VA-TOBACCO FORMER USER [facility] Jun 28, 2020 09:15 AM VA-TOBACCO QUIT 5 TO < 15 YRS [facility] Mar 23, 2019 03:20 PM VA-TOBACCO FORMER USER [facility] Mar 23, 2019 03:20 PM VA-TOBACCO QUIT 5 TO < 15 YRS [facility] Apr 01, 2018 02:59 PM VA-TOBACCO FORMER USER [facility] Apr 01, 2018 02:59 PM VA-TOBACCO QUIT 5 TO < 15 YRS [facility] Jun 28, 2017 01:51 PM FORMER TOBACCO USER 7Y OR GREATE R [facility] Jun 29, 2016 08:43 AM FORMER TOBACCO USE >1Y <7Y [facility] Encounter Notes: All associated encounter notes This section contains the clinical notes associated to the Encounter. Date/Time Encounter Note(s) Provider Source Apr 10, 2023 07:53 AM LETTERS: LOCAL TITLE: FOLLOW UP RESULTS LETTER STANDARD TITLE: LETTERS DATE OF NOTE: APR 10, 2023@07:53 ENTRY DATE: APR 10, 2023@07:53:20 AUTHOR: HELEN AYON EXP COSIGNER: URGENCY: STATUS: COMPLETED [facility] [address] [place] [address] Mar LUIS KHOURY [address] [facility] [id number] Dear : I am writing to inform you of the results of the tests you had done at the [facility]. The tests below were performed and are satisfactory unless otherwise noted. - Glycosylated Hemoglobin (good diabetic control if less than 7.0) HEMOGLOBIN A1C 9.7 H (04/09/23) (normal range is 4.0-6.0) Comments: Luis, your A1c has gone up since we last checked it. This was expected since you've been on the prednisone. Please continue taking your medications and being active as best you can and we'll see where things are at when you come into clinic next. If you have any further questions or problems, please contact our nursing staff or me at the following number: [phone]. Sincerely, HELEN AYON, PHARMD, [facility] CLINICAL ACQUISITIONS ANALYST HELEN AYON ([facility])
--- OUTSIDE RECORDS SUMMARY | 2023-08-14 09:34 | XMS_ITS | Encounter Summary ---
Author Name Department of [facility] Organization Department of [facility] Address [address] [place] [address] Support Name Relationship Address Phone BREE KHOURY Next of Kin [address] [place] [address] BREE KHOURY Emergency Contact [address] [place] [address] Insurance Providers: All historical and [...] Name Patient's Relationship to Policy Vaughn [employer] [facility] (WNR) MEDICARE ADVANTAGE [facility] (R) Jul 29, 2021 [id number] KHOURY,WE SLEY PATIENT [employer] MCR (WNR) MEDICARE ADVANTAGE [facility] (WNR) Jul 29, 2015 [id number] KHOURY,WE SLEY PATIENT [employer] MCR (WNR) MEDICARE ADVANTAGE [facility] (WNR) Jul 29, 2015 [id number] KHOURY,WE SLEY PATIENT [employer] MCR (WNR) MEDICARE ADVANTAGE [facility] (WNR) Jul 29, 2015 [id number] [phone] KHOURY,WE SLEY PATIENT Selected Encounter This section includes the information on record at [place] for the Encounter. Date/Time Encounter Type Encounter Description Reason Provider Source Jul 18, 2023 08:45 AM MTMS BY PHARM ADDL 15 MIN CLINICAL PHARMACY ICD-10-CM E10.9 Type 1 diabetes mellitus without complications HELEN AYON Encounter Template Text not used by [facility] Assessments - Encounter Diagnoses This section includes the primary and secondary diagnoses documented for the Encounter. Date/Time Primary/Secondary Diagnosis Diagnosis Name Provider Source Aug 01, 2023 11:26 AM PRIMARY Type 1 diabetes mellitus without complications MIRTHA SANTIAGO ([facility]) Plan of Treatment: Future Appointments (+ 6 months) and Future Tests (+/- 45 days) The Plan of Treatment section includes future care activities for the patient from all [place] [facility]. This section includes future appointments and future orders which are active, pending or scheduled. Future Appointments This section includes appointments that were scheduled to occur 6 months from the date of the Encounter, up to a maximum of 20 appointments. The data comes from all [facility]. Appointment Date/Time Appointment Type Appointme nt Facility Name Jul 25, 2023 02:15 PM AMBULATORY - MEDICINE [facility] ([facility]) Jul 25, 2023 02:30 PM AMBULATORY - MEDICINE [facility] Aug 27, 2023 02:00 PM AMBULATORY - NONE [place] [facility] ([facility]) Sep 05, 2023 02:00 PM AMBULATORY - MEDICINE [facility] Sep 05, 2023 03:00 PM AM[facility]ORY - NONE [place] [facility] Oct 24, 2023 08:30 AM AMBULATORY - NONE [place] [facility] ([facility]) Oct 28, 2023 02:45 PM AMBULATORY - MEDICINE [facility] ([facility]) Oct 28, 2023 03:00 PM AMBULATORY - MEDICINE [facility] Active, Pending, and Scheduled Orders This section includes a listing of several types of active, pending, and scheduled orders, including clinic medications orders, diagnostic test orders, procedure orders and consult orders; where the start date of the order is 45 days before the date of the Encounter or 45 days after the date of theEncounter. The data comes from all [facility]. Test Date/Time Test Type Test Details Facility Name Jul 11, 2023 12:00 AM Laboratory - Chemi stry Order MICROALBUMIN/CREATININE RATIO URINE URINE [facility] ([facility]) Jul 11, 2023 10:09 AM Consult Order COMMUNITY CARE-COLONOSCOPY SURVEILLANCE Cons Litigation Examiner's [facility] ([facility]) Lab Results: +/- 30 days of the encounter This section includes the Chemistry and Hematology Lab Results on record with [place] for the patient. Radiology Reports and Pathology Reports are provided separately, in subsequent sections. Lab Results This section contains the Chemistry/Hematology Results that were resulted 30 days before or 30 daysafter the date of the Encounter. Date/Time Source Result Type Result - Unit Interpretation Reference Range Comment Jul 11, 2023 09:40 AM [facility] ([facility]) SED RATE Specimen Type: BLOOD No comment entered. Ordering Provider: DELIA FARRAR Report Released Date/Time: Apr 17, 2023 10:34 AM Reporting Lab: [facility] [id number] Performing Lab: [facility] [id number] SED RATE 6 5-15 Jul 11, 2023 09:40 AM [facility] ([facility]) C-REACTIVE PROTEIN Specimen Type: PLASMA No comment entered. Ordering Provider: DELIA FARRAR Report Released Date/Time: Apr 17, 2023 10:34 AM Reporting Lab: [facility] [id number] Performing Lab: [facility] [id number] C-REACTIVE PROTEIN 0.50 <5.00 Jul 11, 2023 09:40 AM [facility] ([facility]) CBC & DIFF Specimen Type: BLOOD Comment: Automated Differential Performed Ordering Provider: DELIA FARRAR Report Released Date/Time: Apr 17, 2023 10:34 AM Reporting Lab: [facility] [id number] Performing Lab: [facility] [id number] WBC 8.43 4.0-11.0 RBC 5.38 4.6-6.2 HGB 14.9 13.5-17.9 HCT 46.4 41-54 MCV 86.2 80-100 MCH 27.7 27-33 MCHC 32.1 32.0-37.5 PLT 305 150-400 MPV 10.0 7.4-10.4 NEUT 71.8 40.0-80.0 LYMPHS 18.4 15.0-45.0 MONO 7.4 2.0-12.0 EOSINO 1.7 0.0-6.0 BASO 0.5 0.0-2.0 RDW 13.4 11.5-14.5 ABS LYMPH 1.55 1.0-4.0 ABS MONO 0.62 0.1-1.0 ABS NEUT 6.06 2.0-7.7 ABS EOS 0.14 0-0.5 ABS BASO 0.04 0-0.2 IG(META,MYELO,P RO) 0.2 ABS IMMATURE GRAN 0.02 0-0.1 Jul 11, 2023 09:40 AM [facility] ([facility]) HEMOGLOBIN A1C Specimen Type: BLOOD Comment: Values obtained from A1C measurements can vary. For typical A1C assays, a reported value of 7.0 could actually be between 6.7 and 7.3 if measured by a reference method. A reported value of 9.0 could actually be between 8.7 and 9.3. Ref: http://www.ngs p.org/CAPdata. asp Ordering Provider: ZINA MARIANO Report Released Date/Time: Jul 11, 2023 09:24 AM Reporting Lab: [facility] [id number] Performing Lab: [facility] [phone] HEMOGLOBIN A1C 9.1 H 4.0-6.0 Jul 11, 2023 09:[address] [facility]) LIPID PANEL,NON-FASTING Specimen Type: PLASMA No comment entered. Ordering Provider: ZINA MARIANO Report Released Date/Time: Jul 11, 2023 09:24 AM Reporting Lab: [facility] [phone] Performing Lab: [facility] [phone] CHOLESTEROL 142 <199 .HDL 35 L >40 LDL CALCULATION 78 <99 VLDL CALCULATION 29 <29 NON HDL CHOLESTEROL 107 <129 TRIG(NON FASTING) 144 <149 Jul 11, 2023 09:[address] [facility]) COMPREHENSIVE METABOLIC PANEL+MG Specimen Type: PLASMA No comment entered. Ordering Provider: ZINA MARIANO Report Released Date/Time: Jul 11, 2023 09:24 AM Reporting Lab: [facility] [id number] Performing Lab: [facility] [phone] CREATININE 1.0 0.7-1.2 UREA NITROGEN 16 8-26 GLUCOSE 121 H 70-100 SODIUM 143 136-145 POTASSIUM 3.7 3.5-5.1 CHLORIDE 103 98-107 CO2 30 H 22-29 CALCIUM 9.2 8.4-10.2 PROTEIN,TOTAL 7.3 6.0-8.3 ALBUMIN 4.1 3.5-5.2 BILIRUBIN, TOTAL 0.5 0.2-1.2 MAGNESIUM 1.7 1.6-2.6 ANION GAP 10 5-15 ALKALINE PHOSPHATASE 111 40-150 ALT/SGPT 31 <55 AST/SGOT 18 <34 .CREAT EGFR(CKD-EPI) 78 >60 Social History: Smoking Status (Most current) and Tobacco Use (All prior to encounter date) This section includes the most current, and the historical, smoking and tobacco- related health factors from the [place] facility where the Encounter took place. Current Smoking Status This section includes the most current smoking, or tobacco-related health factor, from the [place] facility where the Encounter took place. Date/Time Current Smoking Status Comment Facil ity Jul 11, 2023 08:45 AM VA-TOBACCO FORMER USER [facility] ([facility]) Tobacco Use History This section includes a history of the smoking, or tobacco-related health factors, that were collected on or before the date of the Encounter. The data comes from the [place] facility where the Encounter took place. Date/Time Smoking Status/Tobacco Use Comment F acility Jul 11, 2023 08:45 AM VA-TOBACCO QUIT 5 TO < 15 YRS [facility] ([facility]) Jul 12, 2022 09:45 AM VA-TOBACCO FORMER USER [facility] ([facility]) Jul 12, 2022 09:45 AM VA-TOBACCO QUIT 5 TO < 15 YRS [facility] ([facility]) Jul 13, 2021 09:15 AM VA-TOBACCO FORMER USER [facility] ([facility]) Jul 13, 2021 09:15 AM VA-TOBACCO QUIT 5 TO < 15 YRS [facility] ([facility]) Jun 28, 2020 09:15 AM VA-TOBACCO FORMER USER [facility] ([facility]) Jun 28, 2020 09:15 AM VA-TOBACCO QUIT 5 TO < 15 YRS [facility] ([facility]) Mar 23, 2019 03:20 PM VA-TOBACCO FORMER USER [facility] ([facility]) Mar 23, 2019 03:20 PM VA-TOBACCO QUIT 5 TO < 15 YRS [facility] ([facility]) Apr 01, 2018 02:59 PM VA-TOBACCO FORMER USER [facility] ([facility]) Apr 01, 2018 02:59 PM VA-TOBACCO QUIT 5 TO < 15 YRS [facility] ([facility]) Jun 28, 2017 01:51 PM FORMER TOBACCO USER 7Y OR GREATE R [facility] ([facility]) Jun 29, 2016 08:43 AM FORMER TOBACCO USE >1Y <7Y [facility] ([facility]) Encounter Notes: All associated encounter notes This section contains the clinical notes associated to the Encounter. Date/Time Encounter Note(s) Provider Source Jul 18, 2023 09:46 AM PHARMACY NOTE: LOCAL TITLE: PHARMACOTHERAPY-CLINICAL PHARMACY NOTE STANDARD TITLE: PHARMACY NOTE DATE OF NOTE: JUL 18, 2023@09:46 ENTRY DATE: JUL 18, 2023@09:46:51 AUTHOR: HELEN AYON COSIGNER: URGENCY: STATUS: COMPLETED PHARMACOTHERAPY-CLINICAL PHARMACY NOTE Has ADDENDA Visit Type: In-Clinic KHOURYLUIS BARAHONA is a 78 YO followed by [facility] for medication management. SUBJECTIVE: Lifestyle: walking as able, arthritis worse w/ colder weather ROS: (-) hypoglycemia symptoms (-) hyperglycemia symptoms Carolyn Correa 2 Report Summary Avg BG= 203mg/dL *above target(>180mg/dl)= 58% (22% >250mg/dL) *below target(<70mg/dl)= 42% *in target(70-180mg/dl)= 0% scans per day= sensor data captured: 96% predicted A1C: 8.2 % Top trends: overnight and into AM Bgs drop into target range elevated readings >180mg/dL consistent 12pm-12am Adherence to medications: OBJECTIVE: ALLERGIES/ADR: WELLBUTRIN (Jun 29, 2016) LISINOPRIL (Sep 25, 2018) PIOGLITAZONE (Feb 17, 2019) SEMAGLUTIDE (Jan 10, 2022) MEDICATION RECONCILIATION: Active and Recently Outpatient Medications (excluding Supplies): Active Outpatient Medications Status 1) ACCU-CHEK GUIDE (GLUCOSE) TEST STRIP USE 1 STRIP ACTIVE TOPICALLY FOUR TIMES A DAY TO CHECK BLOOD SUGAR--USE WITHIN 3 MINUTES OF REMOVING FROM CONTAINER 2) ASPIRIN 81MG EC TAB TAKE ONE TABLET BY MOUTH EVERY ACTIVE (S) DAY FOR HEART DISEASE 3) ATORVASTATIN CALCIUM 80MG TAB TAKE ONE TABLET BY ACTIVE (S) MOUTH AT BEDTIME FOR CHOLESTEROL 4) CLOPIDOGREL BISULFATE 75MG TAB TAKE ONE TABLET BY ACTIVE MOUTH EVERY DAY FOR 1 YEAR AFTER STENT UNTIL 09/25/2023 5) CYANOCOBALAMIN 1000MCG TAB TAKE ONE TABLET BY MOUTH ACTIVE (S) EVERY DAY FOR B12 SUPPLEMENT 6) DICLOFENAC NA 1% TOP GEL APPLY 4 GRAMS TOPICALLY ACTIVE THREE TIMES A DAY NEEDED TO AFFECTED AREA FOR PAIN 7) FUROSEMIDE 40MG TAB TAKE ONE TABLET BY MOUTH EVERY ACTIVE (S) MORNING FOR EXCESS FLUID 8) INSULIN,ASPART(EQV-NOVLG)100 UN/ML FLXPEN INJECT 16 ACTIVE UNITS UNDER THE SKIN THREE TIMES A DAY WITH MEALS FOR DIABETES PLUS 1 ADDITIONAL UNIT FOR EVERY 50 OVER 150. MAX OF 20 UNITS PER DOSE. SKIP DOSE IF NOT EATING. MAX OF 60 UNITS PER DAY 9) INSULIN,GLARGINE-YFGN 100UNIT/ML PEN 3ML INJECT 54 HOLD UNITS UNDER THE SKIN AT BEDTIME FOR DIABETES 10) LIDOCAINE 4% TOP CREAM APPLY MODERATE AMOUNT ACTIVE TOPICALLY THREE TIMES A DAY FOR PAIN 11) LOSARTAN 50MG TAB TAKE ONE TABLET BY MOUTH EVERY DAY ACTIVE FOR HEART FAILURE 12) METFORMIN HCL 1000MG TAB TAKE ONE TABLET BY MOUTH ACTIVE TWICE A DAY FOR DIABETES 13) METOPROLOL SUCCINATE 50MG SA TAB TAKE ONE TABLET BY ACTIVE (S) MOUTH EVERY DAY FOR HEART PROTECTION 14) NITROGLYCERIN 0.4MG SL TAB DISSOLVE ONE TABLET UNDER ACTIVE THE TONGUE EVERY 5 MINUTES FOR UP TO 3 DOSES IF NEEDED FOR CHEST PAIN Inactive Outpatient Medications Status 1) PREDNISONE 1MG TAB TAKE FOUR TABLETS BY MOUTH EVERY DAY FOR 30 DAYS, THEN TAKE THREE TABLETS EVERY DAY FOR 30 DAYS, THEN TAKE TWO TABLETS EVERY DAY FOR 30 DAYS PMR *TAKE WITH 5 MG TABLET 2) PREDNISONE 5MG TAB TAKE ONE TABLET BY MOUTH EVERY DAY TAKE WITH 1 MG TABLETS DIRECTED 16 Total Medications Vitals: Temperature: 98.6 F [37.0 C] (07/11/2023 08:45) Blood Pressure: 121/63 (07/11/2023 08:53) Pulse: 69 (07/11/2023 08:53) Respiration: 18 (07/11/2023 08:45) Pain: 1 (07/11/2023 08:45) Height: 67.48 in [171.4 cm] (07/11/2023 08:45) Weight: 212.9 lb [96.57 kg] (07/11/2023 08:45) BMI: 32.9 LABS: Basic Metabolic Panel SODIUM 143 (07/11/23) POTASSIUM 3.7 (07/11/23) CREATININE 1.0 (07/11/23) UREA NITROGEN 16 (07/11/23) GLUCOSE 121 H (07/11/23) CO2 30 H (07/11/23) CHLORIDE 103 (07/11/23) EGFR (03/01) 07/13/21 @ 1003 82 CREATININE EGFR (CKD-EPI) 07/11/23 @ 0940 78 MAGNESIUM 1.7 (07/11/23) Collection DT Specimen Test Name Result Units Ref Range 07/11/2023 09:40 PLASMA CREATININE 1.0 mg/dL 0.7 - 1.2 10/01/2022 09:41 PLASMA CREATININE 0.8 mg/dL 0.7 - 1.2 09/04/2022 11:46 PLASMA CREATININE 0.8 mg/dL 0.7 - 1.2 07/11/2023 09:40 PLASMA .CREAT EGFR(CKD-E 78 Ref: >=60 10/01/2022 09:41 PLASMA .CREAT EGFR(CKD-E >90 Ref: >=60 09/04/2022 11:46 PLASMA .CREAT EGFR(CKD-E >90 Ref: >=60 CHOLESTEROL 142 (07/11/23) MEASURED LDL____ LDL CALCULATION 78 (07/11/23) HDL 35 L (07/11/23) TRIGLYCERIDE____ Collection DT Spec HGBA1C POCA1C 07/11/2023 09:40 BLOOD 9.1 H 05/09/2023 08:09 BLOOD 9.1 H 04/09/2023 13:47 BLOOD 9.7 H Collection DT Specimen Test Name Result Units Ref Range 07/12/2022 11:05 URINE ALB/CREAT RATIO,U 22.7 mg/g creat Ref: <=29.9 07/13/2021 10:03 URINE !! ALB/CREAT RATIO,U canc mg/g creat Ref: <=29.9 07/05/2020 09:11 URINE !! ALB/CREAT RATIO,U canc mg/g creat Ref: <=29.9 !! Indicates COMMENTS AVAILABLE...Refer to Interim Lab Report. SGOT 18 (07/11/23) SGPT 31 (07/11/23) TSH ____ Collection DT Spec WBC HGB HCT PLT MCV NEUT LYMPHS 07/11/2023 09:40 BLOOD 8.43 14.9 46.4 305 86.2 71.8 18.4 04/09/2023 13:47 BLOOD 10.25 13.7 42.6 308 84.5 80.7 H 14.0 L 12/11/2022 11:53 BLOOD 8.52 12.3 L 39.4 L 499 H 81.2 Diabetes Related Complications: Macrovascular: [+] CAD Microvascular: -Retinopathy -Nephropathy [+]-Neuropathy ASSESSMENT: # T1DM (goal A1c 7.5-8.5% (FBG 80-175, PPG <225) given CAD (08/2022)/Age and Moderate Microvascular Complications (Peripheral Neuropathy per VA/DoD guidelines); most recent A1c slightly elevated above goal on current regimen of on basal/bolus insulin and metformin to reduce necessary insulin doses. 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 Most recent LDL 78mg/dL on high-intensity statin therapy. PLAN: #Disease-Specific Med Rec: Completed today #Labs: - Educated vet on indication/risks/benefits of new/changed medication. - Education provided on therapeutic nonpharmacologic management to achieve goals. - Vet advised of recent labs. - verbalized understanding to all plans discussed today. Questions were answered to vet's satisfaction. Time spent: minutes RTC: will contact patient to determine next steps The above note was administratively signed due to provider absence to ensure clinical care continues uninterrupted. /hi/ Lupe CruzD, [facility] Pharm[facility] [employer] Signed: 08/01/2023 11:25 for HELEN AYON PHARMD, [facility] 08/01/2023 ADDENDUM STATUS: COMPLETED Contacted RE: appointment above. [place] notes discussion on getting insulin pump to better manage T1DM. Also requesting refill of glargine, has enough medication to last through 08/04/23. Request to mail from [place] to ensure does not run out. /hi/ Lupe CruzD, [facility] Pharm[facility] [employer] Signed: 08/01/2023 14:04 ILEANA SANTIAGO ([facility])
--- OUTSIDE RECORDS SUMMARY | 2023-08-14 09:34 | XMS_ITS | Encounter Summary ---
Author Name Department of [facility] Organization Department of [facility] Address [address] [place] [id number] Support Name Relationship Address Phone BREE KHOURY Next of Kin [address] [place] [address] BREE KHOURY Emergency Contact [address] [place] [address] Insurance Providers: All historical and [...] Policy Vaughn [employer] MCR (WNR) MEDICARE ADVANTAGE [facility] (WNR) Jul 29, 2021 [id number] 1 [id number] [phone] KHOURY,WE SLEY PATIENT [employer] MCR (WNR) MEDICARE ADVANTAGE MCR (WNR) Jul 29, 2015 [id number] KHOURY,WE SLEY PATIENT [employer] MCR (WNR) MEDICARE ADVANTAGE MCR (WNR) Jul 29, 2015 [id number] KHOURY,WE SLEY PATIENT [employer] MCR (WNR) MEDICARE ADVANTAGE [facility] (WNR) Jul 29, 2015 [id number] [id number] KHOURY,WE SLEY PATIENT Selected Encounter This section includes the information on record at [place] for the Encounter. Date/Time Encounter Type Encounter Description Reason Provider Source Aug 05, 2023 02:02 PM Outpatient Encounter ENDOCRINOLOGY ICD-10-CM E10.9 Type 1 diabetes mellitus without complications ESTRELLITA ARNOLD Encounter Template Text not used by [place] Assessments - Encounter Diagnoses This section includes the primary and secondary diagnoses documented for the Encounter. Date/Time Primary/Secondary Diagnosis Diagnosis Name Provider Source Aug 05, 2023 03:36 PM PRIMARY Type 1 diabetes mellitus without complications ZENA MARIE [facility] Plan of Treatment: Future Appointments (+ 6 months) and Future Tests (+/- 45 days) The Plan of Treatment section includes future care activities for the patient from all [place] [facility]. This section includes future appointments and future orders which are active, pending or scheduled. Future Appointments This section includes appointments that were scheduled to occur 6 months from the date of the Encounter, up to a maximum of 20 appointments. The data comes from all [facility]. Appointment Date/Time Appointment Type Appointme nt Facility Name Aug 27, 2023 02:00 PM AMBULATORY - NONE [place] ([facility]) Sep 05, 2023 02:00 PM [facility] Sep 05, 2023 03:00 PM [facility] [place]ONE [place] [facility] Oct 24, 2023 08:30 AM AMBULATORY - NONE [place] ([facility]) Oct 28, 2023 02:45 PM AMBULATORY - MEDICINE [place] ([facility]) Oct 28, 2023 03:00 PM AMBULATORY - MEDICINE [facility] Active, Pending, and Scheduled Orders This section includes a listing of several types of active, pending, and scheduled orders, including clinic medications orders, diagnostic test orders, procedure orders and consult orders; where the start date of the order is 45 days before the date of the Encounter or 45 days after the date of theEncounter. The data comes from all [facility]. Test Date/Time Test Type Test Details Facility Name Jul 11, 2023 12:00 AM Laboratory - Chemi stry Order MICROALBUMIN/CREATININE RATIO URINE URINE [facility] ([facility]) Jul 11, 2023 10:09 AM Consult Order COMMUNITY CARE-COLONOSCOPY SURVEILLANCE Cons Workforce Development Assistant's Choice [place] ([facility]) Sep 05, 2023 03:00 PM Imaging - CT Scan Order LDCT LUNG CANCER SCREENING [facility] Lab Results: +/- 30 days of the encounter This section includes the Chemistry and Hematology Lab Results on record with [place] for the patient. Radiology Reports and Pathology Reports are provided separately, in subsequent sections. Lab Results This section contains the Chemistry/Hematology Results that were resulted 30 days before or 30 daysafter the date of the Encounter. Date/Time Source Result Type Result - Unit Interpretation Reference Range Comment Jul 11, 2023 09:40 AM [place] ([facility]) C-REACTIVE PROTEIN Specimen Type: PLASMA No comment entered. Ordering Provider: DELIA FARRAR Report Released Date/Time: Apr 17, 2023 10:34 AM Reporting Lab: [facility] [id number] Performing Lab: [facility] [id number] C-REACTIVE PROTEIN 0.50 <5.00 Jul 11, 2023 09:40 AM [place] ([facility]) SED RATE Specimen Type: BLOOD No comment entered. Ordering Provider: DELIA FARRAR Report Released Date/Time: Apr 17, 2023 10:34 AM Reporting Lab: [facility] [id number] Performing Lab: [facility] [id number] SED RATE 6 5-15 Jul 11, 2023 09:40 AM [place] ([facility]) CBC & DIFF Specimen Type: BLOOD Comment: Automated Differential Performed Ordering Provider: DELIA FARRAR Report Released Date/Time: Apr 17, 2023 10:34 AM Reporting Lab: [facility] [id number] Performing Lab: [facility] [id number] WBC 8.43 4.0-11.0 RBC 5.38 4.6-6.2 HGB [...] 0.02 0-0.1 Jul 11, 2023 09:40 AM [place] ([facility]) HEMOGLOBIN A1C Specimen Type: BLOOD Comment: [...] 09:24 AM Reporting Lab: [facility] [id number] Performing Lab: [facility] [id number] HEMOGLOBIN A1C 9.1 H 4.0-6.0 Jul 11, 2023 09:40 AM [place] ([facility]) LIPID PANEL,NON-FASTING Specimen Type: PLASMA No comment entered. Ordering Provider: ZINA MARIANO Report Released Date/Time: Jul 11, 2023 09:24 AM Reporting Lab: [facility] [id number] Performing Lab: [facility] [id number] CHOLESTEROL 142 <199 .HDL 35 L >40 LDL CALCULATION 78 <99 VLDL CALCULATION 29 <29 NON HDL CHOLESTEROL 107 <129 TRIG(NON FASTING) 144 <149 Jul 11, 2023 09:40 AM [place] ([facility]) COMPREHENSIVE METABOLIC PANEL+MG Specimen Type: PLASMA No comment entered. Ordering Provider: ZINA MARIANO Report Released Date/Time: Jul 11, 2023 09:24 AM Reporting Lab: [facility] [id number] Performing Lab: [facility] [phone] CREATININE 1.0 0.7-1.2 UREA NITROGEN 16 8-26 GLUCOSE 121 H 70-100 SODIUM 143 136-145 POTASSIUM 3.7 3.5-5.1 CHLORIDE 103 98-107 CO2 30 H 22-29 CALCIUM 9.2 8.4-10.2 PROTEIN,TOTAL 7.3 6.0-8.3 ALBUMIN 4.1 3.5-5.2 BILIRUBIN, TOTAL 0.5 0.2-1.2 MAGNESIUM 1.7 1.6-2.6 ANION GAP 10 5-15 ALKALINE PHOSPHATASE 111 40-150 ALT/SGPT 31 <55 AST/SGOT 18 <34 .CREAT EGFR(CKD-EPI) 78 >60 Encounter Notes: All associated encounter notes This section contains the clinical notes associated to the Encounter. Date/Time Encounter Note(s) Provider Source Aug 05, 2023 02:02 PM DIABETOLOGY CONSULT: LOCAL TITLE: DIABETES DEVICE CONSULT STANDARD TITLE: DIABETOLOGY CONSULT DATE OF NOTE: AUG 05, 2023@14:02 ENTRY DATE: AUG 05, 2023@14:02:31 AUTHOR: ZENA MARIE EXP COSIGNER: URGENCY: STATUS: COMPLETED Diabetes Device Consult Received consult and upon a review of the medical chart, may meet criteria for insulin pump pathway. POLICY for INSULIN PUMP CONSIDERATION per [employer]AD[employer] GUIDELINES: [X] 1. Diagnosed with Type 1 Diabetes, (history of DKA, Low Stimulated C-Peptide or Evidence of Pancreatic Autoimmunity); or [ ] 2. Be insulin deficient with need for intensive insulin therapy (Mulitple Daily Injections)* [ ] a. Poor Glycemic control, despite optimized regimen using MDI in conjunction with life-style modification. [ ] b. Marked Gabby Phenomenon (fasting hyperglycemia) [ ] c. Recurrent nocturnal hypoglycemia despite optimized regimen using long acting insulin. [ ] d. Circumstances of employment or physical activity shift-work) IF Either number 1 or 2 has been met: Consideration for insulin pump therapy: [X] 1. Patient should have demonstrated willingness and ability to play an active role in diabetes self-management: [X] 2. Frequent blood glucose checks: minimum of 4 times per day: fasting, AC and HS; proven by Glucose Meter Downloads or proof of appropriate use of personal continuous glucose monitoring device. [ ] 3. Be evaluated and followed by Registered Dietitian (RD) for carbohydrate counting proficiencies. This includes completing detailed food logs which will be reviewd for accuracy by RD and passing Carbohydrate Counting Quizzes. [ ] 4. Demonstrate the ability to use an insulin to carbohydrate ratio for determining premeal rapid acting insulin doses. [X] 5. Keep recommended appointments with PACT provider, Olive Grower, and Diabetes team. Realizing that many of the appointments would need to be in person for training and assessment. [X] 6. Completed a comprehensive Diabetes Education Program within the last 6 years or been actively engaged with diabetes case management. DIABETES Labs: Collection DT Spec HGBA1C POCA1C 07/11/2023 09:40 BLOOD 9.1 H 05/09/2023 08:09 BLOOD 9.1 H 04/09/2023 13:47 BLOOD 9.7 H No data available C-Peptide: SLT - C-Peptide Collection DT Specimen Test Name Result Units Ref Range 09/04/2022 11:47 SERUM !! C-PEPTIDE <0.10 L ng/mL 0.80 - 3.85 !! Indicates COMMENTS AVAILABLE...Refer to Interim Lab Report. GLUCOSE 121 H (07/11/23) SLT - Lab Tests Selected Collection DT Specimen Test Name Result Units Ref Range 09/04/2022 11:47 SERUM !! KSENIA-65 ANTIBODY >250 H IU/mL Ref: SEE BELOW !! Indicates COMMENTS AVAILABLE...Refer to Interim Lab Report. Active Outpatient Medications (including Supplies): Outpatient Medications Status 1) ACCU-CHEK GUIDE (GLUCOSE) [...] ACTIVE (S) MORNING FOR EXCESS FLUID 8) GLUCOSE SENSOR FREESTYLE JULIO CESAR 2 USE 1 SENSOR ACTIVE EVERY 14 DAYS 9) INSULIN,ASPART(EQV-NOVLG)100 UN/ML FLXPEN INJECT 16 ACTIVE UNITS UNDER THE SKIN THREE TIMES A DAY WITH MEALS FOR DIABETES PLUS 1 ADDITIONAL UNIT FOR EVERY 50 OVER 150. MAX OF 20 UNITS PER DOSE. SKIP DOSE IF NOT EATING. MAX OF 60 UNITS PER DAY 10) INSULIN,GLARGINE-YFGN 100UNIT/ML PEN 3ML INJECT 54 ACTIVE UNITS UNDER THE SKIN AT BEDTIME FOR DIABETES 11) LIDOCAINE 4% TOP CREAM APPLY MODERATE AMOUNT ACTIVE TOPICALLY THREE TIMES A DAY FOR PAIN 12) LOSARTAN 50MG TAB TAKE ONE TABLET BY MOUTH EVERY DAY ACTIVE FOR HEART FAILURE 13) METFORMIN HCL 1000MG TAB TAKE ONE TABLET BY MOUTH ACTIVE TWICE A DAY FOR DIABETES 14) METOPROLOL SUCCINATE 50MG SA TAB TAKE ONE TABLET BY ACTIVE (S) MOUTH EVERY DAY FOR HEART PROTECTION 15) NEEDLE,PEN 31G,8MM USE 1 NEEDLE UNDER THE SKIN ACTIVE DIRECTED FOR INSULIN INJECTIONS *DISPOSE OF IN A HARD-PLASTIC CONTAINER WITH A SCREW-ON LID CONTACT GARBAGE HAULER FOR PROPER DISPOSAL 16) NITROGLYCERIN 0.4MG SL TAB DISSOLVE ONE TABLET UNDER ACTIVE THE TONGUE EVERY 5 MINUTES FOR UP TO 3 DOSES IF NEEDED FOR CHEST PAIN 17) PREDNISONE 1MG TAB TAKE BY MOUTH EVERY DAY ACTIVE DIRECTED TAKE 1 TABLET WITH 5MG TABLET FOR TOTAL OF 6MG DAILY FOR 30 DAYS, THEN ONE 5MG TABLET DAILY FOR 30 DAYS, THEN FOUR 1MG TABLETS (4MG DOSE) DAILY FOR 30 DAYS 18) PREDNISONE 5MG TAB TAKE ONE TABLET BY MOUTH EVERY DAY ACTIVE FOR 60 DAYS 19) SKIN BARRIER FILM 3ML #3345 APPLY PREP TOPICALLY HOLD EVERY 2 WEEKS FOR CGM PLACEMENT 20) SKIN PREP WIPE, S&N #[id number] USE 1 WIPE TOPICALLY ACTIVE NEEDED REPLACES SKIN BARRIER FILM DUE TO BACKORDER *Approval or disapproval for diabetes technology devices is based upon review of CPRS, JLV and outside records if available. If is meeting most of the basic criteria their case will be reviewed at the Diabetes Interdisciplinary Team Conference held twice monthly. Recommendations for diabetes care and final approval will be determined at that time. 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 is enrolled with PRATIMA Castillo PharmD for diabetes management. had mentioned interest in pursuing insulin pump therapy. Review of chart indicates past visits with RDs but no detailed carb counting assessment. Current insulin regimen is based on standard set aspart doses at meal time. is not enrolled in Metabolic clinic. RECOMMENDATIONS: -Requesting provider, please consult Nutrition (RD CDCES) for detailed carb counting assessment and education; assure comment in consult regarding pump pathway so he is scheduled with [facility]. -Requesting provider please dose insulin using carbohydrate ratio(s) -Consult Metabolic for management of type 1 diabetes interested in pump pathway. /hi/ Zena Marie RN, [facility] Certified Diabetes Care & Human Services Care Specialist Signed: 08/05/2023 15:36 Receipt Acknowledged By: 08/05/2023 16:05 /hi/ THELMA ARNOLD M.D. Chief, Endocrinology and Metabolism * AWAITING SIGNATURE * DAT DUFF,ZENA HAWK [facility]
--- OUTSIDE RECORDS SUMMARY | 2023-08-14 09:34 | XMS_ITS | Encounter Summary ---
Author Name [facility] of [facility] Organization [facility] of [facility] Address [address] [place] [address] Support Name Relationship Address Phone BREE KHOURY Next of Kin [address] [place] [address] BREE KHOURY Emergency Contact [address] [place] [address] Insurance Providers: All historical and [...] Policy Vaughn HU[employer] MCR (WNR) MEDICARE ADVANTAGE MCR (WNR) Jul 29, 2021 [id number] 1 [id number] KHOURY,WE SLEY PATIENT HU[employer] MCR (WNR) MEDICARE ADVANTAGE MCR (WNR) Jul 29, 2015 [id number] KHOURY,WE SLEY PATIENT HU[employer]NA MCR (WNR) MEDICARE ADVANTAGE MCR (WNR) Jul 29, 2015 [id number] 97 KHOURY,WE SLEY PATIENT HUMANA MCR (WNR) MEDICARE ADVANTAGE MCR (WNR) Jul 29, 2015 [id number] [phone] KHOURY,WE JASY PATIENT Selected Encounter This section includes the information on record at [place] for the Encounter. Date/Time Encounter Type Encounter Description Reason Provider Source Aug 01, 2023 02:10 PM Outpatient Encounter EVENT (HISTORICAL) ILEANA SANTIAGO Encounter Template Text not used by [place] Plan of Treatment: Future Appointments (+ 6 months) and Future Tests (+/- 45 days) The Plan of Treatment section includes future care activities for the patient from all [place] [facility]. This section includes future appointments and future orders which are active, pending or scheduled. Future Appointments This section includes appointments that were scheduled to occur 6 months from the date of the Encounter, up to a maximum of 20 appointments. The data comes from all [facility]. Appointment Date/Time Appointment Type Appointme nt Facility Name Aug 27, 2023 02:00 PM AMBULATORY - NONE [place] [facility] ([facility]) Sep 05, 2023 02:00 PM AM[place]ATORY - [place]ICINE [place] [facility] Sep 05, 2023 03:00 PM AMBULATORY - NONE [place] [facility] Oct 24, 2023 08:30 AM AMBULATORY - NONE [place] [facility] ([facility]) Oct 28, 2023 02:45 PM AMBULATORY - MEDICINE [place] ([facility]) Oct 28, 2023 03:00 PM AMBULATORY - MEDICINE [facility] Active, Pending, and Scheduled Orders This section includes a listing of several types of active, pending, and scheduled orders, including clinic medications orders, diagnostic test orders, procedure orders and consult orders; where the start date of the order is 45 days before the date of the Encounter or 45 days after the date of theEncounter. The data comes from all [facility]. Test Date/Time Test Type Test Details Facility Name Jul 11, 2023 12:00 AM Laboratory - Chemi stry Order MICROALBUMIN/CREATININE RATIO URINE URINE [facility] ([facility]) Jul 11, 2023 10:09 AM Consult Order COMMUNITY CARE-COLONOSCOPY SURVEILLANCE Cons Gristmiller's Choice [place] ([facility]) Sep 05, 2023 03:00 PM Imaging - CT Scan Order LDCT LUNG CANCER SCREENING [facility] Lab Results: +/- 30 days of the encounter This section includes the Chemistry and Hematology Lab Results on record with [place] for the patient. Radiology Reports and Pathology Reports are provided separately, in subsequent sections. Lab Results This section contains the Chemistry/Hematology Results that were resulted 30 days before or 30 daysafter the date of the Encounter. Date/Time Source Result Type Result - Unit Interpretation Reference Range Comment Jul 11, 2023 09:40 AM [place] ([facility]) C-REACTIVE PROTEIN Specimen Type: PLASMA No comment entered. Ordering Provider: DELIA FARRAR Report Released Date/Time: Apr 17, 2023 10:34 AM Reporting Lab: [facility] [id number] Performing Lab: [facility] [phone] C-REACTIVE PROTEIN 0.50 <5.00 Jul 11, 2023 09:40 AM [place] ([facility]) SED RATE Specimen Type: BLOOD No comment entered. Ordering Provider: DELIA FARRAR Report Released Date/Time: Apr 17, 2023 10:34 AM Reporting Lab: [facility] [phone] Performing Lab: [facility] [id number] SED RATE 6 5-15 Jul 11, 2023 09:40 AM [place] ([facility]) CBC & DIFF Specimen Type: BLOOD Comment: Automated Differential Performed Ordering Provider: DELIA FARRAR Report Released Date/Time: Apr 17, 2023 10:34 AM Reporting Lab: [facility] [id number] Performing Lab: [facility] [phone] WBC 8.43 4.0-11.0 RBC 5.38 4.6-6.2 HGB [...] 0.02 0-0.1 Jul 11, 2023 09:40 AM [place] ([facility]) HEMOGLOBIN A1C Specimen Type: BLOOD Comment: [...] Jul 11, 2023 09:24 AM Reporting Lab: [facility] [id number] Performing Lab: [facility] [id number] HEMOGLOBIN A1C 9.1 H 4.0-6.0 Jul 11, 2023 09:40 AM [place] ([facility]) LIPID PANEL,NON-FASTING Specimen Type: PLASMA No comment entered. Ordering Provider: ZINA MARIANO Report Released Date/Time: Jul 11, 2023 09:24 AM Reporting Lab: [facility] [phone] Performing Lab: [facility] [address] CHOLESTEROL 142 <199 .HDL 35 L >40 LDL CALCULATION 78 <99 VLDL CALCULATION 29 <29 NON HDL CHOLESTEROL 107 <129 TRIG(NON FASTING) 144 <149 Jul 11, 2023 09:40 AM [place] ([facility]) COMPREHENSIVE METABOLIC PANEL+MG Specimen Type: PLASMA No comment entered. Ordering Provider: ZINA MARIANO Report Released Date/Time: Jul 11, 2023 09:24 AM Reporting Lab: [facility] [phone] Performing Lab: [facility] [address] CREATININE 1.0 0.7-1.2 UREA NITROGEN 16 8-26 [...]
--- OUTSIDE RECORDS SUMMARY | 2023-08-14 09:34 | XMS_ITS | Encounter Summary ---
Author Name Department of [facility] Organization Department of [facility] Address [address] [place] [address] Support Name Relationship Address Phone BREE KHOURY Next of Kin [address] [place] [address] BREE KHOURY Emergency Contact [address] [place] [address] Insurance Providers: All historical and [...] Policy Vaughn HUMANA MCR (WNR) MEDICARE ADVANTAGE [facility] (WNR) Jul 29, 2021 [id number] KHOURY,CHIP SLEY PATIENT HUMANA MCR (WNR) MEDICARE ADVANTAGE MCR (WNR) Jul 29, 2015 [id number] 97 KHOURY,WE SLEY PATIENT HUMANA MCR (WNR) MEDICARE ADVANTAGE MCR (WNR) Jul 29, 2015 [id number] 97 KHOURY,WE SLEY PATIENT HUMANA MCR (WNR) MEDICARE ADVANTAGE [facility] (WNR) Jul 29, 2015 [id number] IRAIDA,CHIP MARKY PATIENT Selected Encounter This section includes the information on record at [place] for the Encounter. Date/Time Encounter Type Encounter Description Reason Pro vider Source Aug 02, 2023 12:15 PM Outpatient Encounter COMMUNITY CARE CONSULT IHE Encounter Template Text not used by [facility] Plan of Treatment: Future Appointments (+ 6 months) and Future Tests (+/- 45 days) The Plan of Treatment section includes future care activities for the patient from all [place] [facility]. This section includes future appointments and future orders which are active, pending or scheduled. Future Appointments This section includes appointments that were scheduled to occur 6 months from the date of the Encounter, up to a maximum of 20 appointments. The data comes from all [place] treatment [facility]. Appointment Date/Time Appointment Type Appointme nt Facility Name Aug 27, 2023 02:00 PM AMBULATORY - NONE [facility] ([facility]) Sep 05, 2023 02:00 PM [place] [facility] Sep 05, 2023 03:00 PM [place]ORY - NONE [place] [facility] Oct 24, 2023 08:30 AM AMBULATORY - NONE [facility]) Oct 28, 2023 02:45 PM AMBULATORY - MEDICINE [facility] ([facility]) Oct 28, 2023 03:00 PM AMBULATORY - MEDICINE [facility] Active, Pending, and Scheduled Orders This section includes a listing of several types of active, pending, and scheduled orders, including clinic medications orders, diagnostic test orders, procedure orders and consult orders; where the start date of the order is 45 days before the date of the Encounter or 45 days after the date of theEncounter. The data comes from all [facility]. Test Date/Time Test Type Test Details Facility Name Jul 11, 2023 12:00 AM Laboratory - Chemi stry Order MICROALBUMIN/CREATININE RATIO URINE URINE [facility] ([facility]) Jul 11, 2023 10:09 AM Consult Order COMMUNITY CARE-COLONOSCOPY SURVEILLANCE Cons Defective Cigarette Slitter's Choice [place] ([facility]) Sep 05, 2023 03:00 PM Imaging - CT Scan Order LDCT LUNG CANCER SCREENING [facility] Lab Results: +/- 30 days of the encounter This section includes the Chemistry and Hematology Lab Results on record with [place] for the patient. Radiology Reports and Pathology Reports are provided separately, in subsequent sections. Lab Results This section contains the Chemistry/Hematology Results that were resulted 30 days before or 30 daysafter the date of the Encounter. Date/Time Source Result Type Result - Unit Interpretation Reference Range Comment Jul 11, 2023 09:40 AM [place] ([facility]) SED RATE Specimen Type: BLOOD No comment entered. Ordering Provider: DELIA FARRAR Report Released Date/Time: Apr 17, 2023 10:34 AM Reporting Lab: [facility] [id number] Performing Lab: [facility] [id number] SED RATE 6 5-15 Jul 11, 2023 09:40 AM [place] ([facility]) C-REACTIVE PROTEIN Specimen Type: PLASMA No comment entered. Ordering Provider: DELIA FARRAR Report Released Date/Time: Apr 17, 2023 10:34 AM Reporting Lab: [facility] [id number] Performing Lab: [facility] [id number] C-REACTIVE PROTEIN 0.50 <5.00 Jul 11, 2023 09:40 AM [place] ([facility]) CBC & DIFF Specimen Type: BLOOD Comment: Automated Differential Performed Ordering Provider: DELIA FARRAR Report Released Date/Time: Apr 17, 2023 10:34 AM Reporting Lab: [facility] [id number] Performing Lab: [facility] [address] WBC 8.43 4.0-11.0 RBC 5.38 4.6-6.2 HGB [...] 0.02 0-0.1 Jul 11, 2023 09:40 AM [place] ([facility]) HEMOGLOBIN A1C Specimen Type: BLOOD Comment: [...] Jul 11, 2023 09:24 AM Reporting Lab: [facility] [id number] Performing Lab: [facility] [address] HEMOGLOBIN A1C 9.1 H 4.0-6.0 Jul 11, 2023 09:40 AM [place] ([facility]) LIPID PANEL,NON-FASTING Specimen Type: PLASMA No comment entered. Ordering Provider: ZINA MARIANO Report Released Date/Time: Jul 11, 2023 09:24 AM Reporting Lab: [facility] [id number] Performing Lab: [facility] [address] CHOLESTEROL 142 <199 .HDL 35 L >40 LDL CALCULATION 78 <99 VLDL CALCULATION 29 <29 NON HDL CHOLESTEROL 107 <129 TRIG(NON FASTING) 144 <149 Jul 11, 2023 09:40 AM [place] ([facility]) COMPREHENSIVE METABOLIC PANEL+MG Specimen Type: PLASMA No comment entered. Ordering Provider: ZINA MARIANO Report Released Date/Time: Jul 11, 2023 09:24 AM Reporting Lab: [facility] [id number] Performing Lab: [facility] [address] CREATININE 1.0 0.7-1.2 UREA NITROGEN 16 8-26 [...] Encounter. Date/Time Encounter Note(s) Provider Source Aug 02, 2023 12:15 PM NONVA NOTE: LOCAL TITLE: COMMUNITY CARE PRE-AUTH LETTER (AUTOPRINT) STANDARD TITLE: NONVA NOTE DATE OF NOTE: AUG 02, 2023@12:15 ENTRY DATE: AUG 02, 2023@12:15:55 AUTHOR: WAQAS REDDY COSIGNER: URGENCY: STATUS: COMPLETED Jul LUIS KHOURY [address] [place], [place] [address] Dear LUIS KHOURY, Your VA provider has referred you to a provider within the community for care. Your medical care for COMMUNITY CARE-COLONOSCOPY SARAHI has been authorized with the community care provider listed below. DO NOT REPORT TO THE [facility] Provider info: Care has been approved for the following vendor: Office name, address, and phone number: [facility] [address] [place] [address] PH: [phone] Please contact the identified provider to schedule your community appointment. If you need assistance with this appointment, please call your facility community care office [facility] Office of Community Care at [phone] during the hours of 8:30AM - 3:00PM. Please follow up with your local [facility] community care office once this is scheduled. This step is needed to ensure your referral duration is maximized and the [place] has accurate referral information for billing purposes. Authorization Number: [id number] Referral Issue Date: Jun Expiration Date: Dec (subject to change based on first appointment) If you are unable to schedule this appointment or the appointment is no longer needed, please contact the community provider above for notification/rescheduling and then call the [facility] Office of Community Care at [phone] during the hours of 8:30AM - 3:00PM. If you need additional care/services not mentioned above or your authorization has and additional care is needed, please contact your primary care provider for a new referral. To review all care/service(s) approved under your referral, please go to the following link: [email or web address]) Co-Payments: If you are required to pay a VA co-payment, you will be billed by the VA for each authorized visit that you attend. However, you are NOT REQUIRED to make co-payments to a community provider. Thank you for the opportunity to serve you. Sincerely, [place] Community Care ([facility]) /hi/ WAQAS REDDY ADVANCED PULL UP HAND Signed: 08/02/2023 12:16 WAQAS REDDY [facility]
--- OUTSIDE RECORDS SUMMARY | 2023-08-14 09:34 | XMS_ITS | Encounter Summary ---
Author Name [facility] of [facility] Organization Department of [facility] Address [address] [place] [address] Support Name Relationship Address Phone BREE KHOURY Next of Kin [address] [place] [address] BREE KHOURY Emergency Contact [address] [place] [address] Insurance Providers: All historical and [...] MEDICARE ADVANTAGE MCR (WNR) Jul 29, 2021 [id number] [phone] KHOURY,WE SLEY PATIENT HUMANA MCR (WNR) MEDICARE ADVANTAGE MCR (WNR) Jul 29, 2015 [id number] 97 KHOURY,WE SLEY PATIENT HUMANA MCR (WNR) MEDICARE ADVANTAGE MCR (WNR) Jul 29, 2015 [id number] 97 KHOURY,WE SLEY PATIENT HUMANA MCR (WNR) MEDICARE ADVANTAGE MCR (WNR) Jul 29, 2015 [id number] 97 KHOURY,WE SLEY PATIENT Selected Encounter This section includes the information on record at [place] for the Encounter. Date/Time Encounter Type Encounter Description Reason Provider Source Aug 01, 2023 03:10 PM Outpatient Encounter EVENT (HISTORICAL) BUTCH SANTIAGO Encounter Template Text not used by VA Plan of Treatment: Future Appointments (+ 6 months) and Future Tests (+/- 45 days) The Plan of Treatment section includes future care activities for the patient from all [place] [facility]. This section includes future appointments and future orders which are active, pending or scheduled. Future Appointments This section includes appointments that were scheduled to occur 6 months from the date of the Encounter, up to a maximum of 20 appointments. The data comes from all [facility]. Appointment Date/Time Appointment Type Appointme nt Facility Name Aug 27, 2023 02:00 PM AMBULATORY - NONE [facility] ([facility]) Sep 05, 2023 02:00 PM [place]ORY [place]IC[place] [facility] Sep 05, 2023 03:00 PM [place] - NONE [place] [facility] Oct 24, 2023 08:30 AM AMBULATORY - NONE [facility] ([facility]) Oct 28, 2023 02:45 PM AMBULATORY - MEDICINE [facility] ([facility]) Oct 28, 2023 03:00 PM AMBULATORY - MEDICINE [facility] Active, Pending, and Scheduled Orders This section includes a listing of several types of active, pending, and scheduled orders, including clinic medications orders, diagnostic test orders, procedure orders and consult orders; where the start date of the order is 45 days before the date of the Encounter or 45 days after the date of theEncounter. The data comes from all [facility]. Test Date/Time Test Type Test Details Facility Name Jul 11, 2023 12:00 AM Laboratory - Chemi stry Order MICROALBUMIN/CREATININE RATIO URINE URINE [facility] ([facility]) Jul 11, 2023 10:09 AM Consult Order COMMUNITY CARE-COLONOSCOPY SURVEILLANCE Cons Cloth Presser's Choice [place] ([facility]) Sep 05, 2023 03:00 PM Imaging - CT Scan Order LDCT LUNG CANCER SCREENING [facility] Lab Results: +/- 30 days of the encounter This section includes the Chemistry and Hematology Lab Results on record with [place] for the patient. Radiology Reports and Pathology Reports are provided separately, in subsequent sections. Lab Results This section contains the Chemistry/Hematology Results that were resulted 30 days before or 30 daysafter the date of the Encounter. Date/Time Source Result Type Result - Unit Interpretation Reference Range Comment Jul 11, 2023 09:40 AM [place] ([facility]) SED RATE Specimen Type: BLOOD No comment entered. Ordering Provider: DELIA FARRAR Report Released Date/Time: Apr 17, 2023 10:34 AM Reporting Lab: [facility] [id number] Performing Lab: [facility] [id number] SED RATE 6 5-15 Jul 11, 2023 09:40 AM [place] ([facility]) C-REACTIVE PROTEIN Specimen Type: PLASMA No comment entered. Ordering Provider: DELIA FARRAR Report Released Date/Time: Apr 17, 2023 10:34 AM Reporting Lab: [facility] [id number] Performing Lab: [facility] [address] C-REACTIVE PROTEIN 0.50 <5.00 Jul 11, 2023 09:40 AM [place] ([facility]) CBC & DIFF Specimen Type: BLOOD Comment: Automated Differential Performed Ordering Provider: DELIA FARRAR Report Released Date/Time: Apr 17, 2023 10:34 AM Reporting Lab: [facility] [id number] Performing Lab: [facility] [address] WBC 8.43 4.0-11.0 RBC 5.38 4.6-6.2 HGB [...] 0.02 0-0.1 Jul 11, 2023 09:40 AM [place] ([facility]) HEMOGLOBIN A1C Specimen Type: BLOOD Comment: Values [...] 09:24 AM Reporting Lab: [facility] [id number] Performing Lab: [facility] [address] HEMOGLOBIN A1C 9.1 H 4.0-6.0 Jul 11, 2023 09:40 AM [place] ([facility]) LIPID PANEL,NON-FASTING Specimen Type: PLASMA No comment entered. Ordering Provider: ZINA MARIANO Report Released Date/Time: Jul 11, 2023 09:24 AM Reporting Lab: [facility] [id number] Performing Lab: [facility] [address] CHOLESTEROL 142 <199 .HDL 35 L >40 LDL CALCULATION 78 <99 VLDL CALCULATION 29 <29 NON HDL CHOLESTEROL 107 <129 TRIG(NON FASTING) 144 <149 Jul 11, 2023 09:40 AM [place] ([facility]) COMPREHENSIVE METABOLIC PANEL+MG Specimen Type: PLASMA No comment entered. Ordering Provider: ZINA MARIANO Report Released Date/Time: Jul 11, 2023 09:24 AM Reporting Lab: [facility] [address] Performing Lab: [facility] [address] CREATININE 1.0 0.7-1.2 UREA NITROGEN 16 8-26 [...] Encounter. Date/Time Encounter Note(s) Provider Source Aug 01, 2023 03:10 PM PRIMARY CARE SECUR E MESSAGING: LOCAL TITLE: PRIMARY CARE SECURE MESSAGING STANDARD TITLE: PRIMARY CARE SECURE MESSAGING DATE OF NOTE: AUG 01, 2023@15:10 ENTRY DATE: AUG 01, 2023@14:10:33 AUTHOR: BUTCH SANTIAGO EXP COSIGNER: URGENCY: STATUS: COMPLETED ------Original Message ----- Sent: 07/31/2023 03:00 PM ET From: LUIS KHOURY To: [facility], Nesha Mariano ([facility]) Subject: Medication:Geetha Iniguez, did you order my long lasting Insulin (Glargin) I have enough to last Saturday. Thanks. ------Original Message ----- Sent: 08/01/2023 03:10 PM ET From: BUTCH SANTIAGO To: LUIS KHOURY Subject: Medication:Geetha Jarrell Hi Mr. Khoury, Answering for Geetha so we have your message here taken care of. We just spoke on the phone and I did get a chance to request they mail the insulin from [place] so you can get it in time. I will look into the insulin pump question you and Geetha had spoken about and get back to you when I hear. Thanks! Lupe BojorquezD, FRANKCP PACT Pharmacy Booster Pump Oiler /es/ Butch Santiago PharmD, FRANKCP PACT Pharmacy Booster Pump Oiler Signed: 08/01/2023 14:10 BUTCH SANTIAGO [facility]
--- OUTSIDE RECORDS SUMMARY | 2023-08-14 09:34 | XMS_ITS | Encounter Summary ---
Author Name Department of [facility] Organization Department of [facility] Address [address] [place] [address] Support Name Relationship Address Phone BREE KHOURY Next of Kin [address] [place] [address] BREE KHOURY Emergency Contact [address] [place] [address] Insurance Providers: All historical and [...] MEDICARE ADVANTAGE MCR (WNR) Jul 29, 2021 [id number] KHOURY,WE SLEY PATIENT HU[employer] MCR (WNR) MEDICARE ADVANTAGE MCR (WNR) Jul 29, 2015 [id number] KHOURY,WE SLEY PATIENT [employer] MCR (WNR) MEDICARE ADVANTAGE MCR (WNR) Jul 29, 2015 [id number] 97 KHOURY,WE SLEY PATIENT HUMANA MCR (WNR) MEDICARE ADVANTAGE [facility] (WNR) Jul 29, 2015 [id number] 97 KHOURY,WE SLEY PATIENT Selected Encounter This section includes the information on record at [place] for the Encounter. Date/Time Encounter Type Encounter Description Reason Provider Source Jul 15, 2023 08:23 AM Outpatient Encounter ADMIN PAT ACTIVTIES (MASNONCT) ALMA ZIMMER [place] Encounter Template Text not used by [place] Plan of Treatment: Future Appointments (+ 6 months) and Future Tests (+/- 45 days) The Plan of Treatment section includes future care activities for the patient from all [place] [facility]. This section includes future appointments and future orders which are active, pending or scheduled. Future Appointments This section includes appointments that were scheduled to occur 6 months from the date of the Encounter, up to a maximum of 20 appointments. The data comes from all [facility]. Appointment Date/Time Appointment Type Appointme nt Facility Name Jul 18, 2023 08:45 AM AMBULATORY - NONE [facility]) Jul 25, 2023 02:15 PM AMBULATORY - MEDICINE [facility] ([facility]) Jul 25, 2023 02:30 PM [facility]IC[facility] [place] [facility] Aug 27, 2023 02:00 PM AMBULATORY - NONE [facility]) Sep 05, 2023 02:00 PM [facility] Sep 05, 2023 03:00 PM [place] - NONE [place] [facility] Oct 24, 2023 08:30 AM AMBULATORY - NONE [facility]) Oct 28, 2023 02:45 PM AMBULATORY - MEDICINE [facility] ([facility]) Oct 28, 2023 03:00 PM [facility] Active, Pending, and Scheduled Orders This section includes a listing of several types of active, pending, and scheduled orders, including clinic medications orders, diagnostic test orders, procedure orders and consult orders; where the start date of the order is 45 days before the date of the Encounter or 45 days after the date of theEncounter. The data comes from all [facility]. Test Date/Time Test Type Test Details Facility Name Jul 11, 2023 12:00 AM Laboratory - Chemi stry Order MICROALBUMIN/CREATININE RATIO URINE URINE [facility] Jul 11, 2023 10:09 AM Consult Order COMMUNITY CARE-COLONOSCOPY SURVEILLANCE Cons Servicenow Administrator Developer's Choice [place] ([facility]) Lab Results: +/- 30 days of the encounter This section includes the Chemistry and Hematology Lab Results on record with [place] for the patient. Radiology Reports and Pathology Reports are provided separately, in subsequent sections. Lab Results This section contains the Chemistry/Hematology Results that were resulted 30 days before or 30 daysafter the date of the Encounter. Date/Time Source Result Type Result - Unit Interpretation Reference Range Comment Jul 11, 2023 09:40 AM [place] ([facility]) SED RATE Specimen Type: BLOOD No comment entered. Ordering Provider: DELIA FARRAR Report Released Date/Time: Apr 17, 2023 10:34 AM Reporting Lab: [facility] [id number] Performing Lab: [facility] [address] SED RATE 6 5-15 Jul 11, 2023 09:40 AM [place] ([facility]) C-REACTIVE PROTEIN Specimen Type: PLASMA No comment entered. Ordering Provider: DELIA FARRAR Report Released Date/Time: Apr 17, 2023 10:34 AM Reporting Lab: [facility] [address] Performing Lab: [facility] [address] C-REACTIVE PROTEIN 0.50 <5.00 Jul 11, 2023 09:40 AM [place] ([facility]) CBC & DIFF Specimen Type: BLOOD Comment: Automated Differential Performed Ordering Provider: DELIA FARRAR Report Released Date/Time: Apr 17, 2023 10:34 AM Reporting Lab: [facility] [address] Performing Lab: [facility] [address] WBC 8.43 4.0-11.0 RBC 5.38 4.6-6.2 HGB [...] 0.02 0-0.1 Jul 11, 2023 09:40 AM [place] ([facility]) HEMOGLOBIN A1C Specimen Type: BLOOD Comment: Values [...] Jul 11, 2023 09:24 AM Reporting Lab: [facility] [phone] Performing Lab: [facility] [address] HEMOGLOBIN A1C 9.1 H 4.0-6.0 Jul 11, 2023 09:40 AM [facility]) LIPID PANEL,NON-FASTING Specimen Type: PLASMA No comment entered. Ordering Provider: ZINA MARIANO Report Released Date/Time: Jul 11, 2023 09:24 AM Reporting Lab: [facility] [address] Performing Lab: [facility] [address] CHOLESTEROL 142 <199 .HDL 35 L >40 LDL CALCULATION 78 <99 VLDL CALCULATION 29 <29 NON HDL CHOLESTEROL 107 <129 TRIG(NON FASTING) 144 <149 Jul 11, 2023 09:40 AM [facility]) COMPREHENSIVE METABOLIC PANEL+MG Specimen Type: PLASMA No comment entered. Ordering Provider: ZINA MARIANO Report Released Date/Time: Jul 11, 2023 09:24 AM Reporting Lab: [facility] [address] Performing Lab: [facility] [address] CREATININE 1.0 0.7-1.2 UREA NITROGEN 16 8-26 [...] Encounter. Date/Time Encounter Note(s) Provider Source Jul 15, 2023 08:23 AM PULMONARY NOTE: LOCAL TITLE: PULMONARY LUNG CANCER SCREENING STANDARD TITLE: PULMONARY NOTE DATE OF NOTE: JUL 15, 2023@08:23 ENTRY DATE: JUL 15, 2023@08:23:07 AUTHOR: ALMA ZIMMER EXP COSIGNER: URGENCY: STATUS: COMPLETED Lung Cancer Screening Patient Management Patient contacted, educated on screening and agrees to continue screening. Please see Pulmonary Lung Cancer Screening Program Consult that was entered by PCP for further details. /hi/ ALMA ZIMMER RN, BSN PULMONARY/LCS LENS AND FRAMES PRESCRIPTION CLERK Signed: 07/15/2023 08:23 ALMA ZIMMER [facility]
--- OUTSIDE RECORDS SUMMARY | 2023-08-14 09:35 | XMS_ITS | Encounter Summary ---
Author Name Department of [facility] Organization Department of [facility] Address [address] [place] [address] Support Name Relationship Address Phone BREE KHOURY Next of Kin [address] [place] [address] BREE KHOURY Emergency Contact [address] [place] [address] Insurance Providers: All historical and [...] Policy Vaughn [employer]NA MCR (WNR) MEDICARE ADVANTAGE [facility] (WNR) Jul 29, 2021 [id number] KHOURY,CHIP SLEY PATIENT [employer] MCR (WNR) MEDICARE ADVANTAGE MCR (WNR) Jul 29, 2015 [id number] 97 KHOURY,WE SLEY PATIENT [employer] MCR (WNR) MEDICARE ADVANTAGE MCR (WNR) Jul 29, 2015 [id number] 97 KHOURY,WE SLEY PATIENT [employer] MCR (WNR) MEDICARE ADVANTAGE [facility] (WNR) Jul 29, 2015 [id number] 1 [id number] 97 IRAIDA,CHIP FLORIAN PATIENT Selected Encounter This section includes the information on record at ME for the Encounter. Date/Time Encounter Type Encounter Description Reason Provider Source Jul 24, 2023 08:35 AM Outpatient Encounter COMMUNITY CARE CONSULT LEANNA AGUDELO IHE Encounter Template Text not used by ME Plan of Treatment: Future Appointments (+ 6 months) and Future Tests (+/- 45 days) The Plan of Treatment section includes future care activities for the patient from all [facility] This section includes future appointments and future orders which are active, pending or scheduled. Future Appointments This section includes appointments that were scheduled to occur 6 months from the date of the Encounter, up to a maximum of 20 appointments. The data comes from all [facility]. Appointment Date/Time Appointment Type Appointme nt Facility Name Jul 25, 2023 02:15 PM AMBULATORY - MEDICINE [facility] ([facility]) Jul 25, 2023 02:30 PM [facility] Aug 27, 2023 02:00 PM AMBULATORY - NONE [facility] ([facility]) Sep 05, 2023 02:00 PM [facility] Sep 05, 2023 03:00 PM [facility]ONE [place] [facility] Oct 24, 2023 08:30 AM AMBULATORY - NONE [facility] ([facility]) Oct 28, 2023 02:45 PM AMBULATORY - MEDICINE [facility] ([facility]) Oct 28, 2023 03:00 PM AMBULATORY - MEDICINE [facility] Active, Pending, and Scheduled Orders This section includes a listing of several types of active, pending, and scheduled orders, including clinic medications orders, diagnostic test orders, procedure orders and consult orders; where the start date of the order is 45 days before the date of the Encounter or 45 days after the date of theEncounter. The data comes from all [facility]. Test Date/Time Test Type Test Details Facility Name Jul 11, 2023 12:00 AM Laboratory - Chemi stry Order MICROALBUMIN/CREATININE RATIO URINE URINE [facility] ([facility]) Jul 11, 2023 10:09 AM Consult Order COMMUNITY CARE-COLONOSCOPY SURVEILLANCE Cons Echocardiograph Technician's Choice [place] ([facility]) Sep 05, 2023 03:00 PM Imaging - CT Scan Order LDCT LUNG CANCER SCREENING [facility] Lab Results: +/- 30 days of the encounter This section includes the Chemistry and Hematology Lab Results on record with ME for the patient. Radiology Reports and Pathology Reports are provided separately, in subsequent sections. Lab Results This section contains the Chemistry/Hematology Results that were resulted 30 days before or 30 daysafter the date of the Encounter. Date/Time Source Result Type Result - Unit Interpretation Reference Range Comment Jul 11, 2023 09:40 AM [place] ([facility]) C-REACTIVE PROTEIN Specimen Type: PLASMA No comment entered. Ordering Provider: DELIA FARRAR Report Released Date/Time: Apr 17, 2023 10:34 AM Reporting Lab: [facility] [id number] Performing Lab: [facility] [id number] C-REACTIVE PROTEIN 0.50 <5.00 Jul 11, 2023 09:40 AM [place] ([facility]) SED RATE Specimen Type: BLOOD No comment entered. Ordering Provider: DELIA FARRAR Report Released Date/Time: Apr 17, 2023 10:34 AM Reporting Lab: [facility] [id number] Performing Lab: [facility] [id number] SED RATE 6 5-15 Jul 11, 2023 09:40 AM [place] ([facility]) CBC & DIFF Specimen Type: BLOOD Comment: Automated Differential Performed Ordering Provider: DELIA FARRAR Report Released Date/Time: Apr 17, 2023 10:34 AM Reporting Lab: [facility] [id number] Performing Lab: [facility] [id number] WBC 8.43 4.0-11.0 RBC 5.38 4.6-6.2 HGB [...] 0.02 0-0.1 Jul 11, 2023 09:40 AM [facility]) HEMOGLOBIN A1C Specimen Type: BLOOD Comment: [...] Jul 11, 2023 09:24 AM Reporting Lab: [facility] [id number] Performing Lab: [facility] [address] HEMOGLOBIN A1C 9.1 H 4.0-6.0 Jul 11, 2023 09:40 AM [facility]) LIPID PANEL,NON-FASTING Specimen Type: PLASMA No comment entered. Ordering Provider: ZINA MARIANO Report Released Date/Time: Jul 11, 2023 09:24 AM Reporting Lab: [facility] [address] Performing Lab: [facility] [address] CHOLESTEROL 142 <199 .HDL 35 L >40 LDL CALCULATION 78 <99 VLDL CALCULATION 29 <29 NON HDL CHOLESTEROL 107 <129 TRIG(NON FASTING) 144 <149 Jul 11, 2023 09:40 AM [facility]) COMPREHENSIVE METABOLIC PANEL+MG Specimen Type: PLASMA No comment entered. Ordering Provider: ZINA MARIANO Report Released Date/Time: Jul 11, 2023 09:24 AM Reporting Lab: [facility] [address] Performing Lab: [facility] [address] CREATININE 1.0 0.7-1.2 UREA NITROGEN 16 8-26 [...] Encounter. Date/Time Encounter Note(s) Provider Source Jul 24, 2023 08:35 AM NONVA NOTE: LOCAL TITLE: COMMUNITY CARE-CARE COORDINATION PLAN NOTE STANDARD TITLE: NONVA NOTE DATE OF NOTE: JUL 24, 2023@08:35 ENTRY DATE: JUL 24, 2023@08:35:40 AUTHOR: LEANNA AGUDELO EXP COSIGNER: URGENCY: STATUS: COMPLETED Community Care Consult: Colonoscopy: Surveillance Consult No: [id number] [facility] Referral #: Chief Complaint: Personal history of colonic polyps Patient Admitted? No Level of Care Coordination Complex/Chronic Care Coordination was determined from: Chart Review Facility Community Care Office Contact Care Coordination Point of Contact: Leanna Agudelo RN Services: Moderate Care Coordination Services Case Management, if appropriate Direct communications with interdisciplinary team Plan: proceed to scheduling /es/ Leanna Agudelo RN,BSN Community Coding Support Specialist Signed: 07/24/2023 08:37 LEANNA AGUDELO [facility]
--- OUTSIDE RECORDS SUMMARY | 2023-08-14 09:35 | XMS_ITS | Encounter Summary ---
Author Name [facility] of [facility] Organization Department of [facility] Address [address] [place] [address] Support Name Relationship Address Phone BREE KHOURY Next of Kin [address] [place] [address] BREE KHOURY Emergency Contact [address] [place] [address] Insurance Providers: All historical and [...] Name Patient's Relationship to Policy Vaughn HUMANA [facility] (WNR) MEDICARE ADVANTAGE [facility] (WNR) Jul 29, 2021 [id number] KHOURY,WE SLEY PATIENT [employer] MCR (WNR) MEDICARE ADVANTAGE [facility] (WNR) Jul 29, 2015 [id number] KHOURY,WE SLEY PATIENT [employer] MCR (WNR) MEDICARE ADVANTAGE [facility] (WNR) Jul 29, 2015 [id number] KHOURY,WE SLEY PATIENT [employer] MCR (WNR) MEDICARE ADVANTAGE [facility] (WNR) Jul 29, 2015 [id number] 97 KHOURY,WE SLEY PATIENT Selected Encounter This section includes the information on record at OR for the Encounter. Date/Time Encounter Type Encounter Description Reason Pro vider Source Jul 30, 2023 08:40 AM Outpatient Encounter RHEUMATOLOGY/ARTHRITI S IHE Encounter Template Text not used by [facility] Plan of Treatment: Future Appointments (+ 6 months) and Future Tests (+/- 45 days) The Plan of Treatment section includes future care activities for the patient [facility] This section includes future appointments and future orders which are active, pending or scheduled. Future Appointments This section includes appointments that were scheduled to occur 6 months from the date of the Encounter, up to a maximum of 20 appointments. The data comes from all [facility]. Appointment Date/Time Appointment Type Appointme nt Facility Name Aug 27, 2023 02:00 PM AMBULATORY - NONE [facility] ([facility]) Sep 05, 2023 02:00 PM [place]ORY [place]IC[place] [facility] Sep 05, 2023 03:00 PM [facility]ORY - NONE [place] [facility] Oct 24, 2023 08:30 AM AMBULATORY - NONE [facility] ([facility]) Oct 28, 2023 02:45 PM AMBULATORY - MEDICINE [facility] ([facility]) Oct 28, 2023 03:00 PM AMBULATORY - MEDICINE [facility] Active, Pending, and Scheduled Orders This section includes a listing of several types of active, pending, and scheduled orders, including clinic medications orders, diagnostic test orders, procedure orders and consult orders; where the start date of the order is 45 days before the date of the Encounter or 45 days after the date of theEncounter. The data comes from all [facility]. Test Date/Time Test Type Test Details Facility Name Jul 11, 2023 12:00 AM Laboratory - Chemi stry Order MICROALBUMIN/CREATININE RATIO URINE URINE [facility] ([facility]) Jul 11, 2023 10:09 AM Consult Order COMMUNITY CARE-COLONOSCOPY SURVEILLANCE Cons Line Decorator's Choice [facility] ([facility]) Sep 05, 2023 03:00 PM Imaging - CT Scan Order LDCT LUNG CANCER SCREENING [facility] Lab Results: +/- 30 days of the encounter This section includes the Chemistry and Hematology Lab Results on record with OR for the patient. Radiology Reports and Pathology Reports are provided separately, in subsequent sections. Lab Results This section contains the Chemistry/Hematology Results that were resulted 30 days before or 30 daysafter the date of the Encounter. Date/Time Source Result Type Result - Unit Interpretation Reference Range Comment Jul 11, 2023 09:40 AM [facility] ([facility]) C-REACTIVE PROTEIN Specimen Type: PLASMA No comment entered. Ordering Provider: DELIA FARRAR Report Released Date/Time: Apr 17, 2023 10:34 AM Reporting Lab: [facility] [id number] Performing Lab: [facility] [address] C-REACTIVE PROTEIN 0.50 <5.00 Jul 11, 2023 09:40 AM [facility] ([facility]) SED RATE Specimen Type: BLOOD No comment entered. Ordering Provider: DELIA FARRAR Report Released Date/Time: Apr 17, 2023 10:34 AM Reporting Lab: [facility] [address] Performing Lab: [facility] [address] SED RATE 6 5-15 Jul 11, 2023 09:40 AM [facility] ([facility]) CBC & DIFF Specimen Type: BLOOD Comment: Automated Differential Performed Ordering Provider: DELIA FARRAR Report Released Date/Time: Apr 17, 2023 10:34 AM Reporting Lab: [facility] [address] Performing Lab: [facility] [address] WBC 8.43 4.0-11.0 RBC 5.38 4.6-6.2 HGB [...] 0.02 0-0.1 Jul 11, 2023 09:40 AM [facility] ([facility]) HEMOGLOBIN A1C [...] Jul 11, 2023 09:24 AM Reporting Lab: [facility] [id number] Performing Lab: [facility] [address] HEMOGLOBIN A1C 9.1 H 4.0-6.0 Jul 11, 2023 09:40 AM [facility] ([facility]) LIPID PANEL,NON-FASTING Specimen Type: PLASMA No comment entered. Ordering Provider: ZINA MARIANO Report Released Date/Time: Jul 11, 2023 09:24 AM Reporting Lab: [facility] [address] Performing Lab: [facility] [address] CHOLESTEROL 142 <199 .HDL 35 L >40 LDL CALCULATION 78 <99 VLDL CALCULATION 29 <29 NON HDL CHOLESTEROL 107 <129 TRIG(NON FASTING) 144 <149 Jul 11, 2023 09:40 AM [facility] ([facility]) COMPREHENSIVE METABOLIC PANEL+MG Specimen Type: PLASMA No comment entered. Ordering Provider: ZINA MARIANO Report Released Date/Time: Jul 11, 2023 09:24 AM Reporting Lab: [facility] [address] Performing Lab: [facility] [address] CREATININE 1.0 0.7-1.2 UREA NITROGEN 16 8-26 [...] Encounter. Date/Time Encounter Note(s) Provider Source Jul 31, 2023 09:32 AM ADDENDUM: LOCAL TITLE: Addendum STANDARD TITLE: ADDENDUM DATE OF NOTE: JUL 31, 2023@09:32:43 ENTRY DATE: JUL 31, 2023@09:32:45 AUTHOR: CORRIE DALTON MA EXP COSIGNER: URGENCY: STATUS: COMPLETED geovanni Joy [id number]. /hi/ BLAKE DALTON LPN LPN Signed: 07/31/2023 09:33 Receipt Acknowledged By: 08/01/2023 08:31 /hi/ RUSS BEARDEN === --- Original Document --- 07/30/23 APPOINTMENT SCHEDULING NOTE: Return to clinic / follow up order needs clarification or adjustment Order needing clarification Return to [facility]92 on or around ( Oct 23, 2023 )for a total of 1 appointment(s)Prerequisit es: Labs (NON-FASTING)Labs at least 1 day prior to visit Activity:07/25/2023 Other: FREDRICK-will the following work for clinic and ? 10/27 AT [phone]? THANKS /hi/ RUSS BEARDEN Signed: 07/30/2023 08:45 Receipt Acknowledged By: 07/31/2023 08:30 /hi/ BLAKE DALTON LPN LPN 07/31/2023 10:17 /debby Dale NuLabel 07/31/2023 ADDENDUM STATUS: COMPLETED Called and spoke with patient. Scheduled labs for October 23 @ 8:30 am, and [facility]HE[facility] for October @ 3:00pm. /hi/ BLAKE DALTON LPN LPN Signed: 07/31/2023 08:29 Receipt Acknowledged By: * AWAITING SIGNATURE * RUSS [place]S 07/31/2023 10:17 /debby Dale NuLabel CORRIE DALTON [facility] Jul 31, 2023 08:26 AM ADDENDUM: LOCAL TITLE: Addendum STANDARD TITLE: ADDENDUM DATE OF NOTE: JUL 31, 2023@08:26:32 ENTRY DATE: JUL 31, 2023@08:26:33 AUTHOR: CORRIE DALTON MA EXP COSIGNER: URGENCY: STATUS: COMPLETED Called and spoke with patient. Scheduled labs for October 23 @ 8:30 am, and [facility] for October @ 3:00pm. /hi/ BLAKE DALTON LPN LPN Signed: 07/31/2023 08:29 Receipt Acknowledged By: 08/01/2023 09:06 /debby BEARDEN 07/31/2023 10:17 /hi/ MICHELINE Dale NuLabel === --- Original Document --- 07/30/23 APPOINTMENT SCHEDULING NOTE: Return to clinic / follow up order needs clarification or adjustment Order needing clarification Return to [facility] 692 on or around ( Oct 23, 2023 )for a total of 1 appointment(s)Prerequisit es: Labs (NON-FASTING)Labs at least 1 day prior to visit Activity:07/25/2023 Other: FREDRICK-will the following work for clinic and ? 10/27 AT [id number]? THANKS /hi/ RUSS BEARDEN Signed: 07/30/2023 08:45 Receipt Acknowledged By: 07/31/2023 08:30 /debby DALTON LPN LPN 07/31/2023 10:17 /debby Dale NuLabel 07/31/2023 ADDENDUM STATUS: COMPLETED geovanni Joy [id number]. /hi/ BLAKE DALTON LPN LPN Signed: 07/31/2023 09:33 Receipt Acknowledged By: 08/01/2023 08:31 /CORRIE Saucedo [facility] Jul 30, 2023 08:41 AM REPORT OF CONTACT: LOCAL TITLE: APPOINTMENT SCHEDULING NOTE STANDARD TITLE: REPORT OF CONTACT DATE OF NOTE: JUL 30, 2023@08:41 ENTRY DATE: JUL 30, 2023@08:41:05 AUTHOR: RUSS HILLS EXP COSIGNER: URGENCY: STATUS: COMPLETED APPOINTMENT SCHEDULING NOTE Has ADDENDA Return to clinic / follow up order needs clarification or adjustment Order needing clarification Return to [facility] 6[facility] on or around ( Oct 23, 2023 )for a total of 1 appointment(s)Prerequisit es: Labs (NON-FASTING)Labs at least 1 day prior to visit Activity:07/25/2023 Other: FREDRICK-will the following work for clinic and ? 10/27 AT [id number]? THANKS /debby BEARDEN Signed: 07/30/2023 08:45 Receipt Acknowledged By: 07/31/2023 08:30 /debby DALTON LPN LPN 07/31/2023 10:17 /hi/ MICHELINE Dale NuLabel 07/31/2023 ADDENDUM STATUS: COMPLETED Called and spoke with patient. Scheduled labs for October 23 @ 8:30 am, and [facility] CVT RHEUM for October @ 3:00pm. /debby DALTON LPN LPN Signed: 07/31/2023 08:29 Receipt Acknowledged By: * AWAITING SIGNATURE * [place] 07/31/2023 10:17 /debby Dale NuLabel 07/31/2023 ADDENDUM STATUS: COMPLETED Jerry Karen geovanni [id number]. /debby DALTON LPN LPN Signed: 07/31/2023 09:33 Receipt Acknowledged By: * AWAITING SIGNATURE * [place] DAWN J [facility]
--- OUTSIDE RECORDS SUMMARY | 2023-08-14 09:35 | XMS_ITS | Encounter Summary ---
Author Name [facility] Organization [facility] Address [address] [place] [address] Support Name Relationship Address Phone BREE KHOURY Next of Kin [address] [place] [address] BREE KHOURY Emergency Contact [address] [place] [address] Insurance Providers: All historical and [...] Name Patient's Relationship to Policy Vaughn HUMANA [facility] (WNR) MEDICARE ADVANTAGE MCR (R) Jul 29, 2021 [id number] KHOURY,WE SLEY PATIENT [employer] [facility] (WNR) MEDICARE ADVANTAGE [facility] (WNR) Jul 29, 2015 [id number] KHOURY,WE SLEY PATIENT [employer] [facility] (WNR) MEDICARE ADVANTAGE [facility] (WNR) Jul 29, 2015 [id number] 97 KHOURY,WE SLEY PATIENT [employer] [facility] (WNR) MEDICARE ADVANTAGE [facility] (WNR) Jul 29, 2015 [id number] 97 KHOURY,WE SLEY PATIENT Selected Encounter This section includes the information on record at [place] for the Encounter. Date/Time Encounter Type Encounter Description Reason Provider Source Jul 25, 2023 02:15 PM TELEHEALTH FACILITY FEE RHEUMATOLOGY/ARTH RITIS ICD-10-CM M35.3 Polymyalgia rheumatica ENRRIQUE FARRAR Encounter Template Text not used by [facility] Assessments - Encounter Diagnoses This section includes the primary and secondary diagnoses documented for the Encounter. Date/Time Primary/Secondary Diagnosis Diagnosis Name Provider Source Jul 30, 2023 09:53 AM PRIMARY Polymyalgia rheumatica LUMA DALTON ([facility]) Plan of Treatment: Future Appointments (+ 6 months) and Future Tests (+/- 45 days) The Plan of Treatment section includes future care activities for the patient from all [place] treatmentfacilities. This section includes future appointments and future orders which are active, pending or scheduled. Future Appointments This section includes appointments that were scheduled to occur 6 months from the date of the Encounter, up to a maximum of 20 appointments. The data comes from all [place] treatment [facility] [place]. Appointment Date/Time Appointment Type Appointme nt Facility Name Aug 27, 2023 02:00 PM AMBULATORY - NONE [facility] ([facility]) Sep 05, 2023 02:00 PM [facility] Sep 05, 2023 03:00 PM [place]ORY - [place]ONE [place] [facility] Oct 24, 2023 08:30 AM AMBULATORY - NONE [facility] ([facility]) Oct 28, 2023 02:45 PM AMBULATORY - MEDICINE [facility] ([facility]) Oct 28, 2023 03:00 PM AMBULATORY - MEDICINE [facility] Active, Pending, and Scheduled Orders This section includes a listing of several types of active, pending, and scheduled orders, including clinic medications orders, diagnostic test orders, procedure orders and consult orders; where the start date of the order is 45 days before the date of the Encounter or 45 days after the date of theEncounter. The data comes from all [facility]. Test Date/Time Test Type Test Details Facility Name Jul 11, 2023 12:00 AM Laboratory - Chemi stry Order MICROALBUMIN/CREATININE RATIO URINE URINE [facility] ([facility]) Jul 11, 2023 10:09 AM Consult Order COMMUNITY CARE-COLONOSCOPY SURVEILLANCE Cons Carbide Grinder's Choice [facility] ([facility]) Sep 05, 2023 03:00 PM Imaging - CT Scan Order LDCT LUNG CANCER SCREENING [facility] Lab Results: +/- 30 days of the encounter This section includes the Chemistry and Hematology Lab Results on record with [place] for the patient. Radiology Reports and Pathology Reports are provided separately, in subsequent sections. Lab Results This section contains the Chemistry/Hematology Results that were resulted 30 days before or 30 daysafter the date of the Encounter. Date/Time Source Result Type Result - Unit Interpretation Reference Range Comment Jul 11, 2023 09:40 AM [facility] ([facility]) SED RATE Specimen Type: BLOOD No comment entered. Ordering Provider: DELIA FARRAR Report Released Date/Time: Apr 17, 2023 10:34 AM Reporting Lab: [facility] [id number] Performing Lab: [facility] [id number] SED RATE 6 5-15 Jul 11, 2023 09:40 AM [facility] ([facility]) C-REACTIVE PROTEIN Specimen Type: PLASMA No comment entered. Ordering Provider: DELIA FARRAR Report Released Date/Time: Apr 17, 2023 10:34 AM Reporting Lab: [facility] [id number] Performing Lab: [facility] [id number] C-REACTIVE PROTEIN 0.50 <5.00 Jul 11, 2023 09:40 AM [facility] ([facility]) CBC & DIFF Specimen Type: BLOOD Comment: Automated Differential Performed Ordering Provider: DELIA FARRAR Report Released Date/Time: Apr 17, 2023 10:34 AM Reporting Lab: [facility] [id number] Performing Lab: [facility] [id number] WBC 8.43 4.0-11.0 RBC 5.38 4.6-6.2 HGB [...] 0.02 0-0.1 Jul 11, 2023 09:40 AM [facility] ([facility]) HEMOGLOBIN A1C Specimen Type: BLOOD Comment: [...] Jul 11, 2023 09:24 AM Reporting Lab: [facility] [id number] Performing Lab: [facility] [id number] HEMOGLOBIN A1C 9.1 H 4.0-6.0 Jul 11, 2023 09:40 AM [facility]) LIPID PANEL,NON-FASTING Specimen Type: PLASMA No comment entered. Ordering Provider: ZINA MARIANO Report Released Date/Time: Jul 11, 2023 09:24 AM Reporting Lab: [facility] [phone] Performing Lab: [facility] [id number] CHOLESTEROL 142 <199 .HDL 35 L >40 LDL CALCULATION 78 <99 VLDL CALCULATION 29 <29 NON HDL CHOLESTEROL 107 <129 TRIG(NON FASTING) 144 <149 Jul 11, 2023 09:40 AM [facility]) COMPREHENSIVE METABOLIC PANEL+MG Specimen Type: PLASMA No comment entered. Ordering Provider: ZINA MARIANO Report Released Date/Time: Jul 11, 2023 09:24 AM Reporting Lab: [facility] [id number] Performing Lab: [facility] [address] CREATININE 1.0 0.7-1.2 UREA NITROGEN 16 8-26 GLUCOSE 121 H 70-100 SODIUM 143 136-145 POTASSIUM 3.7 3.5-5.1 CHLORIDE 103 98-107 CO2 30 H 22-29 CALCIUM 9.2 8.4-10.2 PROTEIN,TOTAL 7.3 6.0-8.3 ALBUMIN 4.1 3.5-5.2 BILIRUBIN, TOTAL 0.5 0.2-1.2 MAGNESIUM 1.7 1.6-2.6 ANION GAP 10 5-15 ALKALINE PHOSPHATASE 111 40-150 ALT/SGPT 31 <55 AST/SGOT 18 <34 .CREAT EGFR(CKD-EPI) 78 >60 Vital Signs: All taken on the encounter date This section contains inpatient and outpatient Vital Signs collected on the date of the Encounter. Date/Time Temperature Pulse Blood Pressure Respiratory Rate SP02 Pain Height Weight Body Mass Index Source Jul 25, 2023 02:11 PM 97.8 F 61 /min 132/66 mm[Hg] 96 % 2 213.9 lb 33 [facility] ([facility]) Social History: Smoking Status (Most current) and Tobacco Use (All prior to encounter date) This section includes the most current, and the historical, smoking and tobacco- related health factors from the [place] facility where the Encounter took place. Current Smoking Status This section includes the most current smoking, or tobacco-related health factor, from the [place] facility where the Encounter took place. Date/Time Current Smoking Status Comment Facil ity Jul 11, 2023 08:45 AM VA-TOBACCO QUIT 5 TO < 15 YRS [facility] ([facility]) Tobacco Use History This section includes a history of the smoking, or tobacco-related health factors, that were collected on or before the date of the Encounter. The data comes from the [place] facility where the Encounter took place. Date/Time Smoking Status/Tobacco Use Comment F acility Jul 11, 2023 08:45 AM VA-TOBACCO QUIT 5 TO < 15 YRS [facility] ([facility]) Jul 12, 2022 09:45 AM VA-TOBACCO FORMER USER [facility] ([facility]) Jul 12, 2022 09:45 AM VA-TOBACCO QUIT 5 TO < 15 YRS [facility] ([facility]) Jul 13, 2021 09:15 AM VA-TOBACCO FORMER USER [facility] ([facility]) Jul 13, 2021 09:15 AM VA-TOBACCO QUIT 5 TO < 15 YRS [facility] ([facility]) Jun 28, 2020 09:15 AM VA-TOBACCO FORMER USER [facility] ([facility]) Jun 28, 2020 09:15 AM VA-TOBACCO QUIT 5 TO < 15 YRS [facility] ([facility]) Mar 23, 2019 03:20 PM VA-TOBACCO FORMER USER [facility] ([facility]) Mar 23, 2019 03:20 PM VA-TOBACCO QUIT 5 TO < 15 YRS [facility] ([facility]) Apr 01, 2018 02:59 PM VA-TOBACCO FORMER USER [facility] ([facility]) Apr 01, 2018 02:59 PM VA-TOBACCO QUIT 5 TO < 15 YRS [facility] ([facility]) Jun 28, 2017 01:51 PM FORMER TOBACCO USER 7Y OR GREATE R [facility] ([facility]) Jun 29, 2016 08:43 AM FORMER TOBACCO USE >1Y <7Y [facility] ([facility]) Encounter Notes: All associated encounter notes This section contains the clinical notes associated to the Encounter. Date/Time Encounter Note(s) Provider Source Jul 25, 2023 02:42 PM PRIMARY CARE NOTE: LOCAL TITLE: [facility] PROGRESS NOTE-[facility] STANDARD TITLE: PRIMARY CARE NOTE DATE OF NOTE: JUL 25, 2023@14:42 ENTRY DATE: JUL 25, 2023@14:42:39 AUTHOR: CORRIE DALTON MA EXP COSIGNER: URGENCY: STATUS: COMPLETED TYPE OF VISIT: Appointment Check In Type of appointment: In-person appointment REASON FOR VISIT: cvt rheum ALLERGIES: WELLBUTRIN (Jun 29, 2016) LISINOPRIL (Sep 25, 2018) PIOGLITAZONE (Feb 17, 2019) SEMAGLUTIDE (Jan 10, 2022) VITAL SIGNS: Blood Pressure: 132/66 (07/25/2023 14:11) Pulse: 61 (07/25/2023 14:11) Respiration: 18 (07/11/2023 08:45) Temperature: 97.8 F [36.6 C] (07/25/2023 14:11) Weight: 213.9 lb [97.02 kg] (07/25/2023 14:11) Height: 67.48 in [171.4 cm] (07/11/2023 08:45) BMI: 33.1 O2 Sat: 96% (07/25/2023 14:11) Pain: 2 (07/25/2023 14:11) PAIN SCREEN: Patient is not having significant pain that they wish to discuss with their provider today. MEDICATION Over the Counter/Herbal Medications: The patient denies taking any outside medications or herbals. Homelessness/Food Insecurity Screen: In the past 2 months, have you been living in stable housing that you own, rent, or stay in as part of a household? Yes - Living in stable housing. Are you worried or concerned that in the next 2 months you may NOT have stable housing that you own, rent, or stay in as part of a household? No - Not worried about housing near future The reports the following: Within the past 12 months, you worried whether your food would run out before you got money to buy more. Never true Within the past 12 months, the food you bought just didn't last and you didn't have money to get more. Never true Food Insecurity Resources /es/ BLAKE DALTON LPN LPN Signed: 07/25/2023 14:44 CORRIE DALTON ([facility])
--- OUTSIDE RECORDS SUMMARY | 2023-08-14 09:35 | XMS_ITS | Encounter Summary ---
Author Name [facility] Organization Department of [facility] Address [address] [place] [id number] Support Name Relationship Address Phone BREE KHOURY Next of Kin [address] [place] [address] BREE KHOURY Emergency Contact [address] [place] [address] Insurance Providers: All historical and [...] [facility] (WNR) Jul 29, 2021 [id number] KHOURY,WE SLEY PATIENT [employer] MCR (WNR) MEDICARE ADVANTAGE [facility] (WNR) Jul 29, 2015 [id number] KHOURY,WE SLEY PATIENT [employer] MCR (WNR) MEDICARE ADVANTAGE [facility] (WNR) Jul 29, 2015 [id number] KHOURY,WE SLEY PATIENT [employer] MCR (WNR) MEDICARE ADVANTAGE [facility] (WNR) Jul 29, 2015 [id number] 97 KHOURY,WE SLEY PATIENT Selected Encounter This section includes the information on record at [place] for the Encounter. Date/Time Encounter Type Encounter Description Reason Provider Source Jul 25, 2023 02:30 PM OFFICE O/P EST LOW 20-29 MIN RHEUMATOLOGY/ARTH RITIS ICD-10-CM M35.3 Polymyalgia rheumatica DELIA FARRAR [facility] Encounter Template Text not used by [place] Assessments - Encounter Diagnoses This section includes the primary and secondary diagnoses documented for the Encounter. Date/Time Primary/Secondary Diagnosis Diagnosis Name Provider Source Jul 25, 2023 03:59 PM PRIMARY Polymyalgia rheumatica DELIA FARRAR [facility] Plan of Treatment: Future Appointments (+ 6 months) and Future Tests (+/- 45 days) The Plan of Treatment section includes future care activities for the patient from all [place] [facility] This section includes future appointments and future orders which are active, pending or scheduled. Future Appointments This section includes appointments that were scheduled to occur 6 months from the date of the Encounter, up to a maximum of 20 appointments. The data comes from all [facility]. Appointment Date/Time Appointment Type Appointme nt Facility Name Aug 27, 2023 02:00 PM AMBULATORY - NONE [facility] ([facility]) Sep 05, 2023 02:00 PM AMBULATORY - [place]IC[facility] [place] [facility] Sep 05, 2023 03:00 PM [facility] [place]ONE [place] [facility] Oct 24, 2023 08:30 AM AMBULATORY - NONE [facility] ([facility]) Oct 28, 2023 02:45 PM AMBULATORY - MEDICINE [facility] ([facility]) Oct 28, 2023 03:00 PM AMBULATORY - MEDICINE [facility] Active, Pending, and Scheduled Orders This section includes a listing of several types of active, pending, and scheduled orders, including clinic medications orders, diagnostic test orders, procedure orders and consult orders; where the start date of the order is 45 days before the date of the Encounter or 45 days after the date of theEncounter. The data comes from all [facility]. Test Date/Time Test Type Test Details Facility Name Jul 11, 2023 12:00 AM Laboratory - Chemi stry Order MICROALBUMIN/CREATININE RATIO URINE URINE [facility] ([facility]) Jul 11, 2023 10:09 AM Consult Order COMMUNITY CARE-COLONOSCOPY SURVEILLANCE Cons [facility] Assistant's Choice [facility] ([facility]) Sep 05, 2023 03:00 PM Imaging - CT Scan Order LDCT LUNG CANCER SCREENING [facility] Lab Results: +/- 30 days of the encounter This section includes the Chemistry and Hematology Lab Results on record with [place] for the patient. Radiology Reports and Pathology Reports are provided separately, in subsequent sections. Lab Results This section contains the Chemistry/Hematology Results that were resulted 30 days before or 30 daysafter the date of the Encounter. Date/Time Source Result Type Result - Unit Interpretation Reference Range Comment Jul 11, 2023 09:40 AM [facility] ([facility]) C-REACTIVE PROTEIN Specimen Type: PLASMA No comment entered. Ordering Provider: DELIA FARRAR Report Released Date/Time: Apr 17, 2023 10:34 AM Reporting Lab: [facility] [id number] Performing Lab: [facility] [id number] C-REACTIVE PROTEIN 0.50 <5.00 Jul 11, 2023 09:40 AM [facility] ([facility]) SED RATE Specimen Type: BLOOD No comment entered. Ordering Provider: DELIA FARRAR Report Released Date/Time: Apr 17, 2023 10:34 AM Reporting Lab: [facility] [id number] Performing Lab: [facility] [id number] SED RATE 6 5-15 Jul 11, 2023 09:40 AM [facility] ([facility]) CBC & DIFF Specimen Type: BLOOD Comment: Automated Differential Performed Ordering Provider: DELIA FARRAR Report Released Date/Time: Apr 17, 2023 10:34 AM Reporting Lab: [facility] [id number] Performing Lab: [facility] [address] WBC 8.43 4.0-11.0 RBC 5.38 4.6-6.2 HGB [...] 0.02 0-0.1 Jul 11, 2023 09:40 AM [facility] ([facility]) HEMOGLOBIN A1C Specimen Type: BLOOD Comment: Values [...] Jul 11, 2023 09:24 AM Reporting Lab: [facility] [id number] Performing Lab: [facility] [address] HEMOGLOBIN A1C 9.1 H 4.0-6.0 Jul 11, 2023 09:40 AM [facility]) LIPID PANEL,NON-FASTING Specimen Type: PLASMA No comment entered. Ordering Provider: ZINA MARIANO Report Released Date/Time: Jul 11, 2023 09:24 AM Reporting Lab: [facility] [id number] Performing Lab: [facility] [address] CHOLESTEROL 142 <199 .HDL 35 L >40 LDL CALCULATION 78 <99 VLDL CALCULATION 29 <29 NON HDL CHOLESTEROL 107 <129 TRIG(NON FASTING) 144 <149 Jul 11, 2023 09:40 AM [facility]) COMPREHENSIVE METABOLIC PANEL+MG Specimen Type: PLASMA No comment entered. Ordering Provider: ZINA MARIANO Report Released Date/Time: Jul 11, 2023 09:24 AM Reporting Lab: [facility] [phone] Performing Lab: [facility] [address] CREATININE 1.0 0.7-1.2 UREA NITROGEN 16 8-26 [...] Encounter Note(s) Provider Source Jul 25, 2023 02:41 PM RHEUMATOLOGY ATTEN DING NOTE: LOCAL TITLE: RHEUMATOLOGY CLINIC NOTE STANDARD TITLE: RHEUMATOLOGY ATTENDING NOTE DATE OF NOTE: JUL 25, 2023@14:41 ENTRY DATE: JUL 25, 2023@14:41:11 AUTHOR: TAMRA FARRAR EXP COSIGNER: URGENCY: STATUS: COMPLETED CC: F/U PMR Last seen 03/2023 History of present illness: This is a 78 year old MALE who returns to rheumatology clinic today for follow up of PMR. He was seen in primary care initially 12/2022 and PMR suspected so he was started on prednisone at that time. Review from previous rheum notes: Pt notes that 07/12 [place] the [place]. Usually he can walk 3 laps without difficulty, but that day he went 2 laps and had to stop because of hip pain and swelling in feet. Eventually he has bilateral shoulder and hand pain as well. By July, he couldn't even make one lap. 08/2022 he had IL and needed to have stents placed. During the procedure his right shoulder was very painful, but both shoulders had been bothering him. Swelling in his feet improved after diuretic, but nothing else improved with this. He continued to have pain in shoulders, hips, knees, and hands. Hands were swollen at one point. When the pain/stiffness were the worst, he was having trouble bending over, putting clothes/shoes on, and drying off after a shower. Shoulders were most bothersome, then hips and hands. He was started on prednisone 15mg daily 01/01/23 and improved significantly. Dose increased to 20mg daily 01/09/23 and he notes he is now about 90% improved from where he was. He no longer has any joint swelling. Pain much improved, but may still get a little in hands or shoulders. Denies AM stiffness now. He is back to golfing and was able to golf 18 holes earlier this week. He denies any illnesses prior to onset of symptoms. Pt doing pretty well overall. He is on prednisone 10mg daily. He has not noticed any changes with tapering down. He does have stiffness in hands and R hip pain, but these were both present prior to other joint pain/stiffness starting. He is not having any issues with shoulder pain at this time, no left hip pain. He has had right hip pain since 2020, hand pain/stiffness for several years. Denies any joint swelling. AM stiffness for just a few minutes. He has been golfing several times per week. Interval history: Has some stiffness in his hands and some pain in the side of the right hip. Hip pain has been going on for at least 2 years. He was told that he has arthritis in this hip. No changes since PMR diagnosis or with prednisone taper. He also has some stiffness in his hands, but again this has been present for about 5 years. Worse in colder weather. He denies any joint swelling. AM stiffness 10 minutes. He is now back to walking his normal walk at the mall. He denies any LY, vision changes, f/c, diplopia, jaw claudication. His BS readings have improved (running high in the afternoon) since he made a change to his long acting insulin. Continues to work with his logistics engineering manager. Currently the patient is taking prednisone 7mg daily. He has been decreasing on the 15th of every month. He hasn't noticed any changes as he has been tapering down. Recurrent or prolonged infections - None ROS: General: Denies fevers, chills. No unexplained weight changes. Denies excessive fatigue. CV: No angina. Respiratory: No dyspnea. Denies persistent cough. GI: No abdominal pain, nausea, melena/hematochezia. Some intermittent diarrhea which he thinks may be related to dairy. Skin: Denies rashes. Past Medical History: Hypertensive disorder ([facility] [id number]) Mixed hyperlipidemia ([facility] [id number]) Pernicious anemia ([facility] [id number]) History of adenomatous polyp of colon ([facility] [id number]) Ex-tobacco user ([facility] [id number]) Multiple nodules of lung ([facility] [id number]) Peripheral neuropathy ([facility] [id number]) CAD - Coronary Artery Disease ([facility] [id number]) CHF - Congestive Heart Failure ([facility] 4234Aortic valve stenosis ([facility] [id number]) 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 ([facility] [id number]) Polymyalgia rheumatica ([facility] [id number]) Social and personal history finding ([facility] [id number]) Family history of disorder ([facility] [id number] of surgery ([facility] [id number]) Social Hx: Marital status: Allergies: WELLBUTRIN (Jun 29, 2016) LISINOPRIL (Sep 25, 2018) PIOGLITAZONE (Feb 17, 2019) SEMAGLUTIDE (Jan 10, 2022) Active Outpatient Medications (including Supplies): Active Outpatient Medications Status 1) ACCU-CHEK [...] 1 SENSOR ACTIVE EVERY 14 DAYS 9) INSULIN,ASPART(EQV-NOVLG)1 00UN/ML FLXPEN INJECT 16 ACTIVE UNITS UNDER THE SKIN THREE TIMES A DAY WITH MEALS FOR DIABETES PLUS 1 ADDITIONAL UNIT FOR EVERY 50 OVER 150. MAX OF 20 UNITS PER DOSE. SKIP DOSE IF NOT EATING. MAX OF 60 UNITS PER DAY 10) INSULIN,GLARGINE-YFGN 100UNIT/ML PEN 3ML INJECT 54 HOLD [...] CONTAINER WITH A SCREW-ON LID CONTACT GARBAGE [facility] FOR PROPER DISPOSAL 16) NITROGLYCERIN 0.4MG SL TAB DISSOLVE ONE TABLET UNDER ACTIVE THE TONGUE EVERY 5 MINUTES FOR UP TO 3 DOSES IF NEEDED FOR CHEST PAIN 17) SKIN BARRIER FILM 3ML #8256 APPLY PREP TOPICALLY HOLD EVERY 2 WEEKS FOR CGM PLACEMENT 18) SKIN PREP WIPE, S&N #[id number] USE 1 WIPE TOPICALLY ACTIVE NEEDED REPLACES SKIN BARRIER FILM DUE TO BACKORDER Physical Examination: VS: Temp: 97.8 F [36.6 C] (07/25/2023 14:11) BP: 132/66 (07/25/2023 14:11) Pulse:61 (07/25/2023 14:11) Resp: 18 (07/11/2023 08:45) Weight: 213.9 lb [97.02 kg] (07/25/2023 14:11) BMI: 33.1 Pain: 2 (07/25/2023 14:11) O2 Sat: 96% (07/25/2023 14:11) GENERAL: NAD. HEENT: Normal conjunctiva. SKIN: No rash noted. MSK: No swelling noted in hands. Pt is able to make a full fist. Full ROM in bilateral wrists and shouldres. LABORATORY DATA: WBC 8.43 (07/11/23) HGB 14.9 (07/11/23) PLT 305 (07/11/23) CREATININE 1.0 (07/11/23) SGOT 18 (07/11/23) SGPT 31 (07/11/23) ALK PHOSPHATASE 111 (07/11/23) WESTERGREN 6 (07/11/23) C-REACTIVE PROTEIN 0.50 (07/11/23) Imaging: No new today. Assessment/Plan: 1. PMR Comment: This does seem to be the most likely diagnosis, but could also be an evolving seronegative inflammatory arthritis. Rheumatoid factor and CCP are negative. He did have a mildly positive REJI, but ISABEL was negative. CRP and ESR and normal, hgl has returned to normal. Pt currently on prednisone 7mg daily. Continues to do well with the taper - not noticing any changes. His baseline right hip pain and bilateral hand stiffness (less than 15 minutes in AM) is stable. No shoulder pain. Inflammatory markers remains low/normal. No shoulder or left hip pain as he had when he was first diagnosed. He has responded very well to prednisone, so will continue with taper. The patient is diabetic, and his blood sugar levels have increased on prednisone, but improved after he changed his insulin with his logistics engineering manager. No s/sx of GCA, but discussed these with the patient and he was asked to contact the clinic or present to the emergency room immediately if these present. Discussed calcium intake while on prednisone. Plan: Continue prednisone 7 mg daily. He has been cutting down on the 15th of every month. He will continue to titrate down by 1mg per month. RTC CVT 3 months with labs prior, sooner PRN. All lab results were available and discussed with the patient during the clinic appointment. /hi/ TAMRA FARRAR NP NURSE PRACTITIONER Signed: 07/25/2023 15:[address] [facility]
--- OUTSIDE RECORDS SUMMARY | 2023-08-14 09:35 | XMS_ITS | Encounter Summary ---
Author Name [facility] Organization Department of [facility] Address [address] [place] [address] Support Name Relationship Address Phone BREE KHOURY Next of Kin [address] [place] [address] BREE KHOURY Emergency Contact [address] [place] [address] Insurance Providers: All historical and [...] Policy Vaughn HUMANA MCR (WNR) MEDICARE ADVANTAGE [facility] (WNR) Jul 29, 2021 [id number] KHOURY,WE SLEY PATIENT HUMANA MCR (WNR) MEDICARE ADVANTAGE [facility] (WNR) Jul 29, 2015 [id number] 1 [id number] [phone] KHOURY,WE SLEY PATIENT HUMANA MCR (WNR) MEDICARE ADVANTAGE [facility] (WNR) Jul 29, 2015 [id number] 1 [id number] 97 KHOURY,WE SLEY PATIENT HUMANA MCR (WNR) MEDICARE ADVANTAGE [facility] (WNR) Jul 29, 2015 [id number] 97 KHOURY,WE SLEY PATIENT Selected Encounter This section includes the information on record at [place] for the Encounter. Date/Time Encounter Type Encounter Description Reason Provider Source May 09, 2023 08:45 AM MTMS BY PHARM IRAML 15 MIN CLINICAL PHARMACY ICD-10-CM E10.40 Type 1 diabetes mellitus with diabetic neuropathy, unsp HELEN AYON Encounter Template Text not used by [facility] Assessments - Encounter Diagnoses This section includes the primary and secondary diagnoses documented for the Encounter. Date/Time Primary/Secondary Diagnosis Diagnosis Name Provider Source May 10, 2023 08:54 AM PRIMARY Type 1 diabetes mellitus with diabetic neuropathy, unsp HELEN AYON ([facility]) Plan of Treatment: Future Appointments (+ 6 months) and Future Tests (+/- 45 days) The Plan of Treatment section includes future care activities for the patient from all [place] treatmentfacilities. This section includes future appointments and future orders which are active, pending or scheduled. Future Appointments This section includes appointments that were scheduled to occur 6 months from the date of the Encounter, up to a maximum of 20 appointments. The data comes from all [place] treatment facilities. Appointment Date/Time Appointment Type Appointme nt Facility Name Jun 13, 2023 08:45 AM AMBULATORY - NONE [facility] ([facility]) Jul 11, 2023 08:45 AM AMBULATORY - MEDICINE [facility] ([facility]) Jul 11, 2023 10:15 AM AMBULATORY - NONE [facility]) Jul 18, 2023 08:45 AM AMBULATORY - NONE [facility] ([facility]) Jul 25, 2023 02:15 PM AMBULATORY - MEDICINE [facility] ([facility]) Jul 25, 2023 02:30 PM AMBULATORY - MEDICINE [facility] Aug 27, 2023 02:00 PM AMBULATORY - NONE [facility] ([facility]) Sep 05, 2023 02:00 PM AMBULATORY - MEDICINE [facility] Sep 05, 2023 03:00 PM [facility]ORY - NONE [place] [facility] Oct 24, 2023 08:30 AM AMBULATORY - NONE [facility] ([facility]) Oct 28, 2023 02:45 PM AMBULATORY - MEDICINE [facility] ([facility]) Oct 28, 2023 03:00 PM AMBULATORY - MEDICINE [facility] Lab Results: +/- 30 days of the encounter This section includes the Chemistry and Hematology Lab Results on record with [place] for the patient. Radiology Reports and Pathology Reports are provided separately, in subsequent sections. Lab Results This section contains the Chemistry/Hematology Results that were resulted 30 days before or 30 daysafter the date of the Encounter. Date/Time Source Result Type Result - Unit Interpretation Reference Range Comment May 09, 2023 08:09 AM [facility] ([facility]) HEMOGLOBIN A1C Specimen Type: BLOOD Comment: [...] Apr 04, 2023 09:22 AM Reporting Lab: [facility] [id number] Performing Lab: [facility] [id number] HEMOGLOBIN A1C 9.1 H 4.0-6.0 Social History: Smoking Status (Most current) and Tobacco Use (All prior to encounter date) This section includes the most current, and the historical, smoking and tobacco- related health factors from the [place] facility where the Encounter took place. Current Smoking Status This section includes the most current smoking, or tobacco-related health factor, from the [place] facility where the Encounter took place. Date/Time Current Smoking Status Comment Facil ity Jul 12, 2022 09:45 AM VA-TOBACCO FORMER USER [facility] ([facility]) Tobacco Use History This section includes a history of the smoking, or tobacco-related health factors, that were collected on or before the date of the Encounter. The data comes from the [place] facility where the Encounter took place. Date/Time Smoking Status/Tobacco Use Comment F acility Jul 12, 2022 09:45 AM VA-TOBACCO QUIT 5 TO < 15 YRS [facility] ([facility]) Jul 13, 2021 09:15 AM VA-TOBACCO FORMER USER [facility] ([facility]) Jul 13, 2021 09:15 AM VA-TOBACCO QUIT 5 TO < 15 YRS [facility] ([facility]) Jun 28, 2020 09:15 AM VA-TOBACCO FORMER USER [facility] ([facility]) Jun 28, 2020 09:15 AM VA-TOBACCO QUIT 5 TO < 15 YRS [facility] ([facility]) Mar 23, 2019 03:20 PM VA-TOBACCO FORMER USER [facility] ([facility]) Mar 23, 2019 03:20 PM VA-TOBACCO QUIT 5 TO < 15 YRS [facility] ([facility]) Apr 01, 2018 02:59 PM VA-TOBACCO FORMER USER [facility] ([facility]) Apr 01, 2018 02:59 PM VA-TOBACCO QUIT 5 TO < 15 YRS [facility] ([facility]) Jun 28, 2017 01:51 PM FORMER TOBACCO USER 7Y OR GREATE R [facility] ([facility]) Jun 29, 2016 08:43 AM FORMER TOBACCO USE >1Y <7Y [facility] ([facility]) Encounter Notes: All associated encounter notes This section contains the clinical notes associated to the Encounter. Date/Time Encounter Note(s) Provider Source May 10, 2023 07:48 AM LETTERS: LOCAL TITLE: FOLLOW UP RESULTS LETTER STANDARD TITLE: LETTERS DATE OF NOTE: MAY 10, 2023@07:48 ENTRY DATE: MAY 10, 2023@07:48:16 AUTHOR: HELEN AYON EXP COSIGNER: URGENCY: STATUS: COMPLETED [facility] [address] [place] [address] Apr LUIS KHOURY [address] [facility] [address] Dear [place]: I am writing to inform you of the results of the tests you had done at the [facility]. The tests below were performed and are satisfactory unless otherwise noted. - Glycosylated Hemoglobin (good diabetic control if less than 7.0) HEMOGLOBIN A1C 9.1 H (05/09/23) (normal range is 4.0-6.0) Comments: Luis, your A1c is still higher than we would hope, however, it's a lot better than when we last checked it a month ago (previously 9.7%). This is encouraging that we're on the right track. Please continue taking your medications as recommended at our last visit and working on limiting carbohydrates as best you can. If you have any further questions or problems, please contact our nursing staff or me at the following number: [phone]. Sincerely, HELEN AYON, PHARMD, [facility] CLINICAL WET CHEMISTRY ANALYST HELEN AYON ([facility]) May 09, 2023 07:41 AM PHARMACY NOTE: LOCAL TITLE: PHARMACOTHERAPY-CLINICAL PHARMACY NOTE STANDARD TITLE: PHARMACY NOTE DATE OF NOTE: MAY 09, 2023@07:41 ENTRY DATE: MAY 09, 2023@07:41:21 AUTHOR: CHARLIE MILTON EXP COSIGNER: HELEN AYON URGENCY: STATUS: COMPLETED PHARMACOTHERAPY-CLINICAL PHARMACY NOTE Has ADDENDA Visit Type: In-Clinic LUIS KHOURY is a 78 YO followed by [facility] for diabetes medication management. SUBJECTIVE: [place] is doing well. Has been golfing three times a week, which he enjoys doing. Reports gaining about ~15 pounds in the last month or so. Currently taking 10mg of prednisone daily. Verifies taking 50 units of glargine and ~18 units of aspart with meals. Lifestyle: Diet: trying to eat smaller portions; likes hamburger, goulash Exercise: has been active with golfing and gardening ROS: (-) hypoglycemia symptoms (-) hyperglycemia symptoms Joelstyle Madeline 2 Report Summary Avg BG= 254 mg/dL *above target(>180mg/dl)=30%, >250 52% *below target(<70mg/dl)= 0% *in target(70-180mg/dl)= 18% sensor data captured: 56% predicted A1C: 9.4% Top trends: generally staying high throughout the day, one low reading of 74 after taking an extra 10 units of aspart due to high blood sugar (no symptoms) OBJECTIVE: ALLERGIES/ADR: WELLBUTRIN (Jun 29, 2016) LISINOPRIL (Sep 25, 2018) PIOGLITAZONE (Feb 17, 2019) SEMAGLUTIDE (Jan 10, 2022) MEDICATION RECONCILIATION: Active and Recently Outpatient Medications (excluding Supplies): Active Outpatient Medications Status ======= 1) ACCU-CHEK GUIDE (GLUCOSE) TEST STRIP USE 1 STRIP ACTIVE TOPICALLY FOUR TIMES A DAY TO CHECK BLOOD SUGAR--USE WITHIN 3 MINUTES OF REMOVING FROM CONTAINER 2) ASPIRIN 81MG EC TAB TAKE ONE TABLET BY MOUTH EVERY ACTIVE DAY FOR HEART DISEASE 3) ATORVASTATIN CALCIUM 80MG TAB TAKE ONE TABLET BY ACTIVE MOUTH AT BEDTIME FOR CHOLESTEROL 4) CLOPIDOGREL BISULFATE 75MG TAB TAKE ONE TABLET BY ACTIVE MOUTH EVERY DAY FOR 1 YEAR AFTER STENT UNTIL 09/25/2023 5) CYANOCOBALAMIN 1000MCG TAB TAKE ONE TABLET BY MOUTH ACTIVE EVERY DAY FOR B12 SUPPLEMENT 6) DICLOFENAC NA 1% TOP GEL APPLY 4 GRAMS TOPICALLY ACTIVE THREE TIMES A DAY NEEDED TO AFFECTED AREA FOR PAIN 7) FUROSEMIDE 40MG TAB TAKE ONE TABLET BY MOUTH EVERY ACTIVE MORNING FOR EXCESS FLUID 8) INSULIN,ASPART(EQV-NOVLG)100UN/ML FLXPEN INJECT 12 ACTIVE UNITS UNDER THE SKIN THREE TIMES A DAY WITH MEALS FOR DIABETES - SKIP DOSE IF NOT EATING PLUS 1 ADDITIONAL UNIT FOR EVERY 50 OVER 150. MAX OF 16 UNITS PER DOSE 9) INSULIN,GLARGINE-YFGN 100UNIT/ML PEN 3ML INJECT 50 ACTIVE UNITS UNDER THE SKIN AT BEDTIME FOR DIABETES 10) LIDOCAINE 4% TOP CREAM APPLY MODERATE AMOUNT ACTIVE TOPICALLY THREE TIMES A DAY FOR PAIN 11) LOSARTAN 50MG TAB TAKE ONE TABLET BY MOUTH EVERY DAY ACTIVE FOR HEART FAILURE 12) METFORMIN HCL 1000MG TAB TAKE ONE TABLET BY MOUTH HOLD TWICE A DAY FOR DIABETES 13) METOPROLOL SUCCINATE 50MG SA TAB TAKE ONE TABLET BY ACTIVE MOUTH EVERY DAY FOR HEART PROTECTION 14) NITROGLYCERIN 0.4MG SL TAB DISSOLVE ONE TABLET UNDER ACTIVE THE TONGUE EVERY 5 MINUTES FOR UP TO 3 DOSES IF NEEDED FOR CHEST PAIN 15) PREDNISONE 1MG TAB TAKE FOUR TABLETS BY MOUTH EVERY ACTIVE DAY FOR 30 DAYS, THEN TAKE THREE TABLETS EVERY DAY FOR 30 DAYS, THEN TAKE TWO TABLETS EVERY DAY FOR 30 DAYS PMR *TAKE WITH 5 MG TABLET 16) PREDNISONE 5MG TAB TAKE ONE TABLET BY MOUTH EVERY DAY ACTIVE TAKE WITH 1 MG TABLETS DIRECTED Height: 67.5 in [171.5 cm] (01/01/2023 14:40) Weight: 211.5 lb [95.93 kg] (04/17/2023 10:02) BMI: 32.7 LABS: Basic Metabolic Panel SODIUM 140 (10/01/22) POTASSIUM 4.0 (10/01/22) CREATININE 0.8 (10/01/22) UREA NITROGEN 20 (10/01/22) GLUCOSE 146 H (10/01/22) CO2 28 (10/01/22) CHLORIDE 103 (10/01/22) EGFR (03/01) 07/13/21 @ 1003 82 CREATININE EGFR (CKD-EPI) 10/01/22 @ 0941 >90 MAGNESIUM 1.7 (10/01/22) Collection DT Specimen Test Name Result Units Ref Range 10/01/2022 09:41 PLASMA CREATININE 0.8 mg/dL 0.7 - 1.2 09/04/2022 11:46 PLASMA CREATININE 0.8 mg/dL 0.7 - 1.2 07/12/2022 11:01 PLASMA CREATININE 0.9 mg/dL 0.7 - 1.2 10/01/2022 09:41 PLASMA .CREAT EGFR(CKD-E >90 Ref: >=60 09/04/2022 11:46 PLASMA .CREAT EGFR(CKD-E >90 Ref: >=60 07/12/2022 11:01 PLASMA .CREAT EGFR(CKD-E 89 Ref: >=60 07/13/2021 10:03 PLASMA ESTIMATED GFR(eGF >60 Ref: >=60 03/01/2021 12:38 PLASMA ESTIMATED GFR(eGF >60 Ref: >=60 10/03/2020 12:48 PLASMA ESTIMATED GFR(eGF >60 Ref: >=60 Collection DT Spec HGBA1C 04/09/2023 13:47 BLOOD 9.7 H 01/01/2023 15:37 BLOOD 8.6 H 09/04/2022 11:46 BLOOD 9.5 H Collection DT Specimen Test Name Result Units Ref Range 07/12/2022 11:05 URINE ALB/CREAT RATIO,U 22.7 mg/g creat Ref: <=29.9 07/13/2021 10:03 URINE !! ALB/CREAT RATIO,U canc mg/g creat Ref: <=29.9 07/05/2020 09:11 URINE !! ALB/CREAT RATIO,U canc mg/g creat Ref: <=29.9 !! Indicates COMMENTS AVAILABLE...Refer to Interim Lab Report. ASSESSMENT/PLAN: #DM -Goal A1c <8% (FBG 80-160, PPG <210) d/t age and complications per VA/DoD guidelines A1c collected today not yet updated. TIR low at 18% with one report of hypoglycemia after taking extra aspart. still taking prednisone which could be contributing to higher blood sugars. Discussed how both insulin and prednisone can cause weight gain and recommend limiting carb intake and continuing to stay active. With BG staying high most of the day, will adjust insulin glargine. -INCREASE insulin glargine to 54 units daily #Disease-Specific Med Rec: Completed today #Labs: A1c today; pending - Educated vet on indication/risks/benefits of new/changed medication. - Education provided on therapeutic nonpharmacologic management to achieve goals. - verbalized understanding to all plans discussed today. Questions were answered to vet's satisfaction. Time spent: 30 minutes RTC: June 13 @ 8:45am in clinic /debby MILTON student ministries director Signed: 05/09/2023 14:50 /debby AYON PHARMD, [facility] CLINICAL WET CHEMISTRY ANALYST Cosigned: 05/10/2023 08:54 05/10/2023 ADDENDUM STATUS: COMPLETED In room supervision Agree with trainee note with comments below. Nature of encounter: 78yo seen for diabetes case management follow-up. Clinical thinking, assessment and treatment plan: BGs remain elevated throughout the day, agree with adjustment in basal insulin. Encouraged to reduce carb intake. /debby AYON PHARMD, [facility] CLINICAL WET CHEMISTRY ANALYST Signed: 05/10/2023 08:56 CHARLIE MILTON ([facility])
--- OUTSIDE RECORDS SUMMARY | 2023-08-14 09:35 | XMS_ITS | Encounter Summary ---
Author Name [facility] Organization [facility] of [facility] Address [address] [place] [address] Support Name Relationship Address Phone BREE KHOURY Next of Kin [address] [place] [address] BREE KHOURY Emergency Contact [address] [place] [address] Insurance Providers: All historical [...] Policy Vaughn HUMANA MCR (WNR) MEDICARE ADVANTAGE [facility] (R) Jul 29, 2021 [id number] KHOURY,WE SLEY PATIENT HUMANA MCR (WNR) MEDICARE ADVANTAGE [facility] (WNR) Jul 29, 2015 [id number] 97 KHOURY,WE SLEY PATIENT HUMANA MCR (WNR) MEDICARE ADVANTAGE [facility] (WNR) Jul 29, 2015 [id number] 97 KHOURY,WE SLEY PATIENT HUMANA MCR (WNR) MEDICARE ADVANTAGE [facility] (WNR) Jul 29, 2015 [id number] 1 [id number] [phone] KHOURY,WE SLEY PATIENT Selected Encounter This section includes the information on record at [place] for the Encounter. Date/Time Encounter Type Encounter Description Reason Provider Source Jun 13, 2023 08:45 AM MTMS BY PHARM ADDL 15 MIN CLINICAL PHARMACY ICD-10-CM E10.40 Type 1 diabetes mellitus with diabetic neuropathy, unsp HELEN AYON Encounter Template Text not used by [facility] Assessments - Encounter Diagnoses This section includes the primary and secondary diagnoses documented for the Encounter. Date/Time Primary/Secondary Diagnosis Diagnosis Name Provider Source Jun 13, 2023 10:31 AM PRIMARY Type 1 diabetes mellitus with diabetic neuropathy, unsp HELEN AYON ([facility]) Plan of Treatment: Future Appointments (+ 6 months) and Future Tests (+/- 45 days) The Plan of Treatment section includes future care activities for the patient [facility]. This section includes future appointments and future orders which are active, pending or scheduled. Future Appointments This section includes appointments that were scheduled to occur 6 months from the date of the Encounter, up to a maximum of 20 appointments. The data comes from all [place] treatment facilities. Appointment Date/Time Appointment Type Appointme nt Facility Name Jul 11, 2023 08:45 AM AMBULATORY - MEDICINE [facility] ([facility]) Jul 11, 2023 10:15 AM AMBULATORY - NONE [facility] ([facility]) Jul 18, 2023 08:45 AM AMBULATORY - NONE [facility]) Jul 25, 2023 02:15 PM AMBULATORY - MEDICINE [facility] ([facility]) Jul 25, 2023 02:30 PM AMBULATORY - MEDICINE [place] Aug 27, 2023 02:00 PM AMBULATORY - NONE [facility]) Sep 05, 2023 02:00 PM AMBULATORY - MEDICINE [facility] Sep 05, 2023 03:00 PM [facility]ORY - NONE [place] [facility] Oct 24, 2023 08:30 AM AMBULATORY - NONE [facility]) Oct 28, 2023 02:45 PM AMBULATORY - MEDICINE [facility] ([facility]) Oct 28, 2023 03:00 PM AMBULATORY - MEDICINE [facility] Active, Pending, and Scheduled Orders This section includes a listing of several types of active, pending, and scheduled orders, including clinic medications orders, diagnostic test orders, procedure orders and consult orders; where the start date of the order is 45 days before the date of the Encounter or 45 days after the date of theEncounter. The data comes from all [place] treatment [facility]. Test Date/Time Test Type Test Details Facility Name Jul 11, 2023 12:00 AM Laboratory - Chemi stry Order MICROALBUMIN/CREATININE RATIO URINE URINE [facility] ([facility]) Jul 11, 2023 10:09 AM Consult Order [facility] Cons Design Printer Balloon's Marti [facility] ([facility]) Lab Results: +/- 30 days of the encounter This section includes the Chemistry and Hematology Lab Results on record with [place] for the patient. Radiology Reports and Pathology Reports are provided separately, in subsequent sections. Lab Results This section contains the Chemistry/Hematology Results that were resulted 30 days before or 30 daysafter the date of the Encounter. Date/Time Source Result Type Result - Unit Interpretation Reference Range Comment Jul 11, 2023 09:40 AM [facility] ([facility]) C-REACTIVE PROTEIN Specimen Type: PLASMA No comment entered. Ordering Provider: DELIA FARRAR Report Released Date/Time: Apr 17, 2023 10:34 AM Reporting Lab: [facility] [id number] Performing Lab: [facility] [id number] C-REACTIVE PROTEIN 0.50 <5.00 Jul 11, 2023 09:40 AM [facility] ([facility]) SED RATE Specimen Type: BLOOD No comment entered. Ordering Provider: DELIA FARRAR Report Released Date/Time: Apr 17, 2023 10:34 AM Reporting Lab: [facility] [id number] Performing Lab: [facility] [id number] SED RATE 6 5-15 Jul 11, 2023 09:40 AM [facility] ([facility]) CBC & DIFF Specimen Type: BLOOD Comment: Automated Differential Performed Ordering Provider: DELIA FARRAR Report Released Date/Time: Apr 17, 2023 10:34 AM Reporting Lab: [facility] [id number] Performing Lab: [facility] [id number] WBC 8.43 4.0-11.0 RBC 5.38 4.6-6.2 HGB [...] 0.02 0-0.1 Jul 11, 2023 09:40 AM [facility] ([facility]) HEMOGLOBIN A1C Specimen Type: BLOOD Comment: [...] Jul 11, 2023 09:24 AM Reporting Lab: [facility] [id number] Performing Lab: [facility] [id number] HEMOGLOBIN A1C 9.1 H 4.0-6.0 Jul 11, 2023 09:40 AM [facility] ([facility]) LIPID PANEL,NON-FASTING Specimen Type: PLASMA No comment entered. Ordering Provider: ZINA MARIANO Report Released Date/Time: Jul 11, 2023 09:24 AM Reporting Lab: [facility] [id number] Performing Lab: [facility] [id number] CHOLESTEROL 142 <199 .HDL 35 L >40 LDL CALCULATION 78 <99 VLDL CALCULATION 29 <29 NON HDL CHOLESTEROL 107 <129 TRIG(NON FASTING) 144 <149 Jul 11, 2023 09:40 AM [facility] ([facility]) COMPREHENSIVE METABOLIC PANEL+MG Specimen Type: PLASMA No comment entered. Ordering Provider: ZINA MARIANO Report Released Date/Time: Jul 11, 2023 09:24 AM Reporting Lab: [facility] [id number] Performing Lab: [facility] [phone] CREATININE 1.0 0.7-1.2 UREA NITROGEN 16 8-26 [...] and tobacco- related health factors from the [place] facility where the Encounter took place. Current Smoking Status This section includes the most current smoking, or tobacco-related health factor, from the [place] facility where the Encounter took place. Date/Time Current Smoking Status Comment Facil ity Jul 12, 2022 09:45 AM VA-TOBACCO FORMER USER [facility] ([facility]) Tobacco Use History This section includes a history of the smoking, or tobacco-related health factors, that were collected on or before the date of the Encounter. The data comes from the [place] facility where the Encounter took place. Date/Time Smoking Status/Tobacco Use Comment F acility Jul 12, 2022 09:45 AM VA-TOBACCO QUIT 5 TO < 15 YRS [facility] ([facility]) Jul 13, 2021 09:15 AM VA-TOBACCO FORMER USER [facility] ([facility]) Jul 13, 2021 09:15 AM VA-TOBACCO QUIT 5 TO < 15 YRS [facility] ([facility]) Jun 28, 2020 09:15 AM VA-TOBACCO FORMER USER [facility] ([facility]) Jun 28, 2020 09:15 AM VA-TOBACCO QUIT 5 TO < 15 YRS [facility] ([facility]) Mar 23, 2019 03:20 PM VA-TOBACCO FORMER USER [facility] ([facility]) Mar 23, 2019 03:20 PM VA-TOBACCO QUIT 5 TO < 15 YRS [facility] ([facility]) Apr 01, 2018 02:59 PM VA-TOBACCO FORMER USER [facility] ([facility]) Apr 01, 2018 02:59 PM VA-TOBACCO QUIT 5 TO < 15 YRS [facility] ([facility]) Jun 28, 2017 01:51 PM FORMER TOBACCO USER 7Y OR GREATE R [facility] ([facility]) Jun 29, 2016 08:43 AM FORMER TOBACCO USE >1Y <7Y [facility] ([facility]) Encounter Notes: All associated encounter notes This section contains the clinical notes associated to the Encounter. Date/Time Encounter Note(s) Provider Source Jun 13, 2023 08:53 AM PHARMACY NOTE: LOCAL TITLE: PHARMACOTHERAPY-CLINICAL PHARMACY NOTE STANDARD TITLE: PHARMACY NOTE DATE OF NOTE: JUN 13, 2023@08:53 ENTRY DATE: JUN 13, 2023@08:53:49 AUTHOR: HELEN AYON COSIGNER: URGENCY: STATUS: COMPLETED Visit Type: In-Clinic LUIS KHOURY is a 78 YO followed by PACT [facility] for diabetes medication management. SUBJECTIVE: -Taking 8mg prednisone now -Feels things are well overall -Taking 16 units of aspart more frequently -Celebrated Thanksgiving last week so BGs were higher but have since come down -Going golfing today after our appt, will be the last game he plays for the year Lifestyle: Diet: eats 3 meals/day Exercise: golfing and walking ROS: (-) hypoglycemia symptoms (-) hyperglycemia symptoms Arlinyle Madeline 2 Report Summary Avg BG= 205mg/dL *above target(>180mg/dl)= 59% (>250mg/dL 23%) *below target(<70mg/dl)= 0% *in target(70-180mg/dl)= 36% scans per day= 12 sensor data captured: 96% predicted A1C: 8.2% Top trends: fasting readings in acceptable range, will have afternoon spikes Adherence to medications: denies missed doses OBJECTIVE: ALLERGIES/ADR: WELLBUTRIN (Jun 29, 2016) LISINOPRIL [...] 150. MAX OF 16 UNITS PER DOSE Confirmed, taking more 16 units consistently 9) INSULIN,GLARGINE-YFGN 100UNIT/ML PEN 3ML INJECT 54 [...] 12:48 PLASMA ESTIMATED GFR(eGF >60 Ref: >=60 CHOLESTEROL 118 (10/22/22) LDL CALCULATION 67 (10/22/22) HDL 30 L (10/22/22) Collection DT Spec HGBA1C 05/09/2023 08:09 BLOOD 9.1 H 04/09/2023 13:47 BLOOD 9.7 H 01/01/2023 15:37 BLOOD 8.6 H Collection DT Specimen Test Name Result Units Ref Range 07/12/2022 11:05 URINE ALB/CREAT RATIO,U 22.7 mg/g creat Ref: <=29.9 07/13/2021 10:03 URINE !! ALB/CREAT RATIO,U canc mg/g creat Ref: <=29.9 07/05/2020 09:11 URINE !! ALB/CREAT RATIO,U canc mg/g creat Ref: <=29.9 !! Indicates COMMENTS AVAILABLE...Refer to Interim Lab Report. Diabetes Related Complications: Macrovascular: [-] Microvascular: -Retinopathy [-] -Nephropathy [-] -Neuropathy [+] ASSESSMENT/PLAN: #T1DM - Goal A1c <8% (FBG 80-160, PPG <210) d/t comorbidities per VA/DoD guidelines less than 7% if can achieve without hypoglycemia [place] with no recent hypoglycemia, BG control improved from previous visits. Encouraged ongoing lifestyle changes. Discussed may need adjustment in insulin aspart correction scale, however, will defer this change since he will be done golApptentiveg. Historically, BG control has changeed with end of golf season so no adjustments made today. -No med changes #Disease-Specific Med Rec: Completed today - Education provided on therapeutic nonpharmacologic management to achieve goals. - [place] verbalized understanding to all plans discussed today. Questions were answered to vet's satisfaction. Time spent: 30 minutes RTC: July 18 @ 0845 in-clinic /hi/ HELEN AYON PHARMD, [facility] CLINICAL FINAL INSPECTOR MOVEMENT ASSEMBLY Signed: 06/13/2023 10:32 HELEN AYON ([facility])
--- OUTSIDE RECORDS SUMMARY | 2023-08-14 09:35 | XMS_ITS | Encounter Summary ---
Author Name Department of [facility] Organization Department of [facility] Address [address] [place] [address] Support Name Relationship Address Phone BREE KHOURY Next of Kin [address] [place] [address] BREE KHOURY Emergency Contact [address] [place] [address] Insurance Providers: All historical and [...] Name Patient's Relationship to Policy Vaughn [employer] [facility] (WNR) MEDICARE ADVANTAGE [facility] (R) Jul 29, 2021 [id number] KHOURY,WE SLEY PATIENT [employer] MCR (WNR) MEDICARE ADVANTAGE [facility] (WNR) Jul 29, 2015 [id number] HKOURY,WE SLEY PATIENT [employer] MCR (WNR) MEDICARE ADVANTAGE [facility] (WNR) Jul 29, 2015 [id number] KHOURY,WE SLEY PATIENT [employer] MCR (WNR) MEDICARE ADVANTAGE [facility] (WNR) Jul 29, 2015 [id number] KHOURY,WE SLEY PATIENT Selected Encounter This section includes the information on record at [place] for the Encounter. Date/Time Encounter Type Encounter Description Reason Provider Source Jul 11, 2023 08:45 AM Outpatient Encounter PRIMARY CARE/MEDICINE ICD-10-CM I10 Essential (primary) hypertension CHARLENE MARIANO Shelby Encounter Template Text not used by [facility] Assessments - Encounter Diagnoses This section includes the primary and secondary diagnoses documented for the Encounter. Date/Time Primary/Secondary Diagnosis Diagnosis Name Provider Source Jul 11, 2023 10:09 AM PRIMARY Essential (primary) hypertension CHARLENE MARIANO [facility] ([facility]) Jul 11, 2023 10:09 AM SECONDARY Athscl heart disease of [place] coronary artery w/o ang pctrs CHARLENE MARIANO [facility]NA ([facility]) Jul 11, 2023 10:09 AM SECONDARY Encounter for general adult medical exam w abnormal findings ULICES MARIANOT Aravind Hood [facility]NA ([facility]) Jul 11, 2023 10:09 AM SECONDARY Heart failure, unspecified ULICES MARIANOT Aravind Hood [facility] ([facility]) Jul 11, 2023 10:09 AM SECONDARY Mixed hyperlipidemia ULICES MARIANOT Aravind Hood JANA ([facility]) Jul 11, 2023 10:09 AM SECONDARY Nonrheumatic aortic (valve) stenosis OLIVER MARIANOBET Aravind Erwin BEE ([facility]) Jul 11, 2023 10:09 AM SECONDARY Personal history of colonic polyps OLIVER MARIANOBET Aravind Hood JANA ([facility]) Jul 11, 2023 10:09 AM SECONDARY Personal history of nicotine dependence ULICES MARIANOT Aravind Hood JANA ([facility]) Jul 11, 2023 10:09 AM SECONDARY Polymyalgia rheumatica OLIVER MARIANOBET Aravind Hood JANA ([facility]) Jul 11, 2023 10:09 AM SECONDARY Solitary pulmonary nodule ULICES MARIANOT Aravind Hood JANA ([facility]) Jul 11, 2023 10:09 AM SECONDARY Type 1 diabetes mellitus without complications OLIVER MARIANOBET Aravind Erwin BEE ([facility]) Plan of Treatment: Future Appointments (+ 6 months) and Future Tests (+/- 45 days) The Plan of Treatment section includes future care activities for the patient from all [place] treatment[facility]. This section includes future appointments and future orders which are active, pending or scheduled. Future Appointments This section includes appointments that were scheduled to occur 6 months from the date of the Encounter, up to a maximum of 20 appointments. The data comes from all [place] treatment facilities. Appointment Date/Time Appointment Type Appointme nt Facility Name Jul 18, 2023 08:45 AM AMBULATORY - NONE [facility] ([facility]) Jul 25, 2023 02:15 PM AMBULATORY - MEDICINE [facility] ([facility]) Jul 25, 2023 02:30 PM [facility] Aug 27, 2023 02:00 PM AMBULATORY - NONE [facility] ([facility]) Sep 05, 2023 02:00 PM AMBULATORY - MEDICINE [facility] Sep 05, 2023 03:00 PM AMBULATORY - NONE [facility] Oct 24, 2023 08:30 AM AMBULATORY - NONE [facility] ([facility]) Oct 28, 2023 02:45 PM AMBULATORY - MEDICINE [facility] ([facility]) Oct 28, 2023 03:00 PM AMBULATORY - MEDICINE [facility] Active, Pending, and Scheduled Orders This section includes a listing of several types of active, pending, and scheduled orders, including clinic medications orders, diagnostic test orders, procedure orders and consult orders; where the start date of the order is 45 days before the date of the Encounter or 45 days after the date of theEncounter. The data comes from all [place] treatment facilities. Test Date/Time Test Type Test Details Facility Name Jul 11, 2023 12:00 AM Laboratory - Chemi stry Order MICROALBUMIN/CREATININE RATIO URINE URINE [facility] ([facility]) Jul 11, 2023 10:09 AM Consult Order COMMUNITY CARE-COLONOSCOPY SURVEILLANCE Cons Biomass Plant Manager's Choice [facility] ([facility]) Lab Results: +/- 30 days of the encounter This section includes the Chemistry and Hematology Lab Results on record with [place] for the patient. Radiology Reports and Pathology Reports are provided separately, in subsequent sections. Lab Results This section contains the Chemistry/Hematology Results that were resulted 30 days before or 30 daysafter the date of the Encounter. Date/Time Source Result Type Result - Unit Interpretation Reference Range Comment Jul 11, 2023 09:40 AM [facility] ([facility]) C-REACTIVE PROTEIN Specimen Type: PLASMA No comment entered. Ordering Provider: DELIA FARRAR Report Released Date/Time: Apr 17, 2023 10:34 AM Reporting Lab: [facility] [id number] Performing Lab: [facility] [id number] C-REACTIVE PROTEIN 0.50 <5.00 Jul 11, 2023 09:40 AM [facility] ([facility]) SED RATE Specimen Type: BLOOD No comment entered. Ordering Provider: DELIA FARRAR Report Released Date/Time: Apr 17, 2023 10:34 AM Reporting Lab: [facility] [id number] Performing Lab: [facility] [id number] SED RATE 6 5-15 Jul 11, 2023 09:40 AM [facility] ([facility]) CBC & DIFF Specimen Type: BLOOD Comment: Automated Differential Performed Ordering Provider: DELIA FARRAR Report Released Date/Time: Apr 17, 2023 10:34 AM Reporting Lab: [facility] [id number] Performing Lab: [facility] [address] WBC 8.43 4.0-11.0 RBC 5.38 4.6-6.2 HGB [...] 0.02 0-0.1 Jul 11, 2023 09:40 AM [facility] ([facility]) HEMOGLOBIN A1C Specimen Type: BLOOD Comment: [...] Jul 11, 2023 09:24 AM Reporting Lab: [facility] [id number] Performing Lab: [facility] [address] HEMOGLOBIN A1C 9.1 H 4.0-6.0 Jul 11, 2023 09:40 AM [facility] ([facility]) LIPID PANEL,NON-FASTING Specimen Type: PLASMA No comment entered. Ordering Provider: ZINA MARIANO Report Released Date/Time: Jul 11, 2023 09:24 AM Reporting Lab: [facility] [id number] Performing Lab: [facility] [address] CHOLESTEROL 142 <199 .HDL 35 L >40 LDL CALCULATION 78 <99 VLDL CALCULATION 29 <29 NON HDL CHOLESTEROL 107 <129 TRIG(NON FASTING) 144 <149 Jul 11, 2023 09:40 AM [facility] ([facility]) COMPREHENSIVE METABOLIC PANEL+MG Specimen Type: PLASMA No comment entered. Ordering Provider: ZINA MARIANO Report Released Date/Time: Jul 11, 2023 09:24 AM Reporting Lab: [facility] [address] Performing Lab: [facility] [address] CREATININE 1.0 0.7-1.2 UREA NITROGEN 16 8-26 [...] Height Weight Body Mass Index Source Jul 11, 2023 08:53 AM 69 /min 121/63 mm[Hg] [facility] ([facility]) Jul 11, 2023 08:51 AM 71 /min 144/63 mm[Hg] 96 % [facility] ([facility]) Jul 11, 2023 08:45 AM 98.6 F 68 /min 151/69 mm[Hg] 18 /min 95 % 1 67.48 in 212.9 lb 33 [facility] ([facility]) Social History: Smoking Status (Most current) and Tobacco Use (All prior to encounter date) This section includes the most current, and the historical, smoking and tobacco- related health factors from the [place] facility where the Encounter took place. Current Smoking Status This section includes the most current smoking, or tobacco-related health factor, from the [place] facility where the Encounter took place. Date/Time Current Smoking Status Comment Facil ity Jul 11, 2023 08:45 AM VA-TOBACCO FORMER USER [facility] ([facility]) Tobacco Use History This section includes a history of the smoking, or tobacco-related health factors, that were collected on or before the date of the Encounter. The data comes from the [place] facility where the Encounter took place. Date/Time Smoking Status/Tobacco Use Comment F acility Jul 11, 2023 08:45 AM VA-TOBACCO QUIT 5 TO < 15 YRS [facility] ([facility]) Jul 12, 2022 09:45 AM VA-TOBACCO FORMER USER [facility] ([facility]) Jul 12, 2022 09:45 AM VA-TOBACCO QUIT 5 TO < 15 YRS [facility] ([facility]) Jul 13, 2021 09:15 AM VA-TOBACCO FORMER USER [facility] ([facility]) Jul 13, 2021 09:15 AM VA-TOBACCO QUIT 5 TO < 15 YRS [facility] ([facility]) Jun 28, 2020 09:15 AM VA-TOBACCO FORMER USER [facility] ([facility]) Jun 28, 2020 09:15 AM VA-TOBACCO QUIT 5 TO < 15 YRS [facility] ([facility]) Mar 23, 2019 03:20 PM VA-TOBACCO FORMER USER [facility] ([facility]) Mar 23, 2019 03:20 PM VA-TOBACCO QUIT 5 TO < 15 YRS [facility] ([facility]) Apr 01, 2018 02:59 PM VA-TOBACCO FORMER USER [facility] ([facility]) Apr 01, 2018 02:59 PM VA-TOBACCO QUIT 5 TO < 15 YRS [facility] ([facility]) Jun 28, 2017 01:51 PM FORMER TOBACCO USER 7Y OR GREATE R [facility] ([facility]) Jun 29, 2016 08:43 AM FORMER TOBACCO USE >1Y <7Y [facility] ([facility]) Encounter Notes: All associated encounter notes This section contains the clinical notes associated to the Encounter. Date/Time Encounter Note(s) Provider Source Jul 11, 2023 09:20 AM H & P NOTE: LOCAL TITLE: [facility] ANNUAL VISIT STANDARD TITLE: H & P NOTE DATE OF NOTE: JUL 11, 2023@09:20 ENTRY DATE: JUL 11, 2023@09:20:27 AUTHOR: ZINA MARIANO COSIGNER: URGENCY: STATUS: COMPLETED Subjective: Chief complaint: annual exam HPI: The is a 78 year old MALE here for annual exam. Patient has complaint of intermittent loose stools over the past few years. Patient reports having the runs a couple times a week. Patient any food correlations with symptoms. Patient receives [facility] at: n/a Preventative Services: Cholesterol testing:monitor today Diabetes: hA1C today CRC Screening: colonoscopy consult today, prefers [facility] PSA: n/a due to age AAA Screening: previously accomplished Lung Cancer Screening: renew today STI/HIV: no conerns Past Medical History: Active problems - Computerized Problem List is the source for the followin. Hypertensive disorder 2. Mixed hyperlipidemia 3. Pernicious anemia 4. History of adenomatous polyp of colon - last colonoscopy 2012 at [facility] - pt report normal 5. Ex-tobacco user - Quit 2012 6. Multiple nodules of lung 7. Peripheral neuropathy 8. CAD - Coronary Artery Disease ([facility] [id number]) - 09/22/2022 stemi with 2 stents 9. CHF - Congestive Heart Failure ([facility] [id number]) - -EF 50-55% per echo 02/18/2023 - repeat echo in 3 year 10. Aortic valve stenosis - -Echo 02/18/2023: Mild; mean gradient of 10 mmHg, MICHAEL of 1.5-2.0 cm2 11. 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 Anemia 13. Polymyalgia rheumatica 14. Social and personal history finding - - Does not drink alcohol 15. Family history of disorder - Mother- dementia - Son - AL in 40s - Father - DM, AL - Sister - DM 16. History of surgery - left inguinal hernia repair 08/2018 Social History: Reviewed nurse's progress notes from today. Allergies: WELLBUTRIN (Jun 29, 2016) LISINOPRIL (Sep 25, 2018) PIOGLITAZONE (Feb 17, 2019) SEMAGLUTIDE (Jan 10, 2022) MEDICATION RECONCILIATION Outpatient At this visit I have reviewed the medication list, and discussed relevant medications with the patient/surrogate. An updated patient medication list was given to the participant(s). Review of System: General:No weight loss, fever, chills, weakness or fatigue. Skin: No rash, no itching, no concerning moles HEENT: No visual changes, No hearing loss, no congestion, no PND. Cardiovascular: No chest pain, no chest pressure, no palpitations Lungs: No SOB, no cough, no wheezing GI: No anorexia, no nausea, no abdominal pain, no blood in stool : No dysuria, no hematuria, No discharge Peripheral vascular: No edema, no leg pain MSK: h/o flank pain, No joint pain or stiffness h/o flank pain Neuro: No dizziness, no headaches, no ataxia, no memory concerns, no numbness or tingling in extremities Psych: Mood stable, no SI/SH Endocrine: No heat or cold intolerance. No polyuria or polydipsia. 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 Skin:No concerning lesions. Eyes: PERRLA, EOMI Ears: Bilateral canals clear, TMs with good cone of light Cardiac: S1S2, RRR, 2+ murmur at right sternal border Chest/Lungs: CTAB, no respiratory distress Abdominal: Bowels sounds active, non-tender, no hepatosplenomegaly, no masses Extremities: Warm, no tenderness, no edema MSK: No joint deformities or swelling on inspection and palpation. Neurological: AOx3, CN II-XII grossly intact. Gait stable, fluid. Essential Medication List - reviewed with Patient/Caregiver Medication Reconciliation: Education Evaluations *Was medication education provided for NEW medications or CHANGES to medications? (including medication name, dose, route, reason for use, and potential side effects). No new medications or medication changes during this encounter. TERATOGENIC MED & CONTRACEPTION REVIEW (Optional)... = MEDICATION RECONCILIATION = List Given: An updated medication list was provided to the patient/caregiver. Review Done: The medication list shown below was verified for accuracy and it includes all pending medications/active medications/all medications or discontinued within the last 90 days/all remote medications and non-VA medications. If a given category (i.e. remote meds) is not shown, that means that a patient doesn't have a medication(s) in that category. Allergies listed below were also reviewed/updated for accuracy. Allergies/ADR from [facility] may not display in CPRS. Use JLV MRT5 - Allergies/ADRs FACILITY ALLERGY/ADR -------- No Remote Allergy/ADR Data available for this patient [facility] LISINOPRIL [facility] PIOGLITAZONE [facility] SEMAGLUTIDE [facility] WELLBUTRIN Active and Recently Outpatient Medications (including Supplies): Issue Date Status Last Fill Active Outpatient Medications Refills Expiration 1) ACCU-CHEK GUIDE (GLUCOSE) TEST STRIP ACTIVE Issu:09-19-22 Qty: 200 for 50 days Sig: USE 1 STRIP Refills: 2 Last:03-29-23 TOPICALLY FOUR TIMES A DAY TO CHECK Expr:09-20-23 BLOOD SUGAR--USE WITHIN 3 MINUTES OF REMOVING FROM CONTAINER 2) ASPIRIN 81MG EC TAB Qty: 120 for 90 ACTIVE Issu:09-19-22 days Sig: TAKE ONE TABLET BY MOUTH Refills: 0 Last:06-30-23 EVERY DAY FOR HEART DISEASE Expr:09-20-23 3) ATORVASTATIN CALCIUM 80MG TAB Qty: 90 ACTIVE Issu:10-01-22 for 90 days Sig: TAKE ONE TABLET BY Refills: 0 Last:06-30-23 MOUTH AT BEDTIME FOR CHOLESTEROL Expr:10-02-23 4) CLOPIDOGREL BISULFATE 75MG TAB Qty: 90 ACTIVE Issu:10-01-22 for 90 days Sig: TAKE ONE TABLET BY Refills: 1 Last:05-17-23 MOUTH EVERY DAY FOR 1 YEAR AFTER STENT Expr:10-02-23 UNTIL 09/25/2023 5) CYANOCOBALAMIN 1000MCG TAB Qty: 100 for ACTIVE Issu:09-19-22 90 days Sig: TAKE ONE TABLET BY MOUTH Refills: 0 Last:06-30-23 EVERY DAY FOR B12 SUPPLEMENT Expr:09-20-23 6) DICLOFENAC NA 1% TOP GEL Qty: 200 for ACTIVE Issu:10-01-22 30 days Sig: APPLY 4 GRAMS TOPICALLY Refills: 0 Last:01-07-23 THREE TIMES A DAY NEEDED TO Expr:10-02-23 AFFECTED AREA FOR PAIN 7) FUROSEMIDE 40MG TAB Qty: 90 for 90 days ACTIVE Issu:10-01-22 Sig: TAKE ONE TABLET BY MOUTH EVERY Refills: 0 Last:06-30-23 MORNING FOR EXCESS FLUID Expr:10-02-23 8) GLUCOSE SENSOR FREESTYLE JULIO CESAR 2 Qty: 2 ACTIVE Issu:10-23-22 for 28 days Sig: USE 1 SENSOR Refills: 3 Last:06-13-23 EVERY 14 DAYS Expr:10-24-23 9) INSULIN,GLARGINE-YFGN 100UNIT/ML PEN 3ML HOLD Issu:05-09-23 Qty: 15 for 83 days Sig: INJECT 54 Refills: 3 UNITS UNDER THE SKIN AT BEDTIME FOR Expr:05-09-24 DIABETES 10) LIDOCAINE 4% TOP CREAM Qty: 90 for 30 ACTIVE Issu:12-11-22 days Sig: APPLY MODERATE AMOUNT Refills: 10 Last:02-12-23 TOPICALLY THREE TIMES A DAY FOR PAIN Expr:12-12-23 11) LOSARTAN 50MG TAB Qty: 90 for 90 days ACTIVE Issu:12-06-22 Sig: TAKE ONE TABLET BY MOUTH EVERY Refills: 1 Last:05-25-23 DAY FOR HEART FAILURE Expr:12-07-23 12) METFORMIN HCL 1000MG TAB Qty: 180 for ACTIVE Issu:01-01-23 90 days Sig: TAKE ONE TABLET BY MOUTH Refills: 3 Last:05-27-23 TWICE A DAY FOR DIABETES Expr:01-02-24 13) METOPROLOL SUCCINATE 50MG SA TAB Qty: ACTIVE Issu:10-01-22 90 for 90 days Sig: TAKE ONE TABLET Refills: 0 Last:06-30-23 BY MOUTH EVERY DAY FOR HEART Expr:10-02-23 PROTECTION 14) NEEDLE,PEN 31G,8MM Qty: 400 for 90 days ACTIVE Issu:07-19-22 Sig: USE 1 NEEDLE UNDER THE SKIN Refills: 0 Last:04-07-23 DIRECTED FOR INSULIN INJECTIONS Expr:07-20-23 *DISPOSE OF IN A HARD-PLASTIC CONTAINER WITH A SCREW-ON LID CONTACT GARBAGE HAULER FOR PROPER DISPOSAL 15) NITROGLYCERIN 0.4MG SL TAB Qty: 100 for ACTIVE Issu:10-01-22 30 days Sig: DISSOLVE ONE TABLET Refills: 2 Last:01-07-23 UNDER THE TONGUE EVERY 5 MINUTES FOR Expr:10-02-23 UP TO 3 DOSES IF NEEDED FOR CHEST PAIN 16) PREDNISONE 1MG TAB Qty: 270 for 90 days ACTIVE Issu:04-17-23 Sig: TAKE FOUR TABLETS BY MOUTH EVERY Refills: 0 Last:04-17-23 DAY FOR 30 DAYS, THEN TAKE THREE Expr:07-16-23 TABLETS EVERY DAY FOR 30 DAYS, THEN TAKE TWO TABLETS EVERY DAY FOR 30 DAYS PMR *TAKE WITH 5 MG TABLET 17) PREDNISONE 5MG TAB Qty: 90 for 90 days ACTIVE Issu:04-17-23 Sig: TAKE ONE TABLET BY MOUTH EVERY Refills: 0 Last:04-17-23 DAY TAKE WITH 1 MG TABLETS Expr:07-16-23 DIRECTED 18) SKIN BARRIER FILM 3ML 3M#[id number] Qty: 25 HOLD Issu:03-13-23 for 30 days Sig: APPLY PREP TOPICALLY Refills: 3 EVERY 2 WEEKS FOR CGM PLACEMENT Expr:03-13-24 19) SKIN PREP WIPE, S&N #[id number] Qty: 50 for ACTIVE Issu:03-15-23 60 days Sig: USE 1 WIPE TOPICALLY Refills: 1 Last:03-15-23 NEEDED REPLACES SKIN BARRIER FILM Expr:03-15-24 DUE TO BACKORDER Vaccinations: IM - Immunizations ADMINISTERED Immunization Series Date Facility Reaction Info COVID-19 (PeeplePass), MRNA, LNP-S, * 2 08/30/2021 [facility]* <C> HEP B, ADULT 07/02/2011 [facility]* HEP B, ADULT 05/17/2011 [facility]* INFLUENZA, SEASONAL, INJECTABLE 05/17/2011 [facility] [facility] PNEUMOCOCCAL CONJUGATE PCV 13 06/29/2016 [facility]* <C> PNEUMOCOCCAL POLYSACCHARIDE PPV23 11/24/2012 [facility]* <C> PNEUMOCOCCAL POLYSACCHARIDE PPV23 01/10/2004 [facility]* <C> TDAP B 07/12/2022 [facility]* ZOSTER RECOMBINANT 2 10/03/2020 [facility]* ZOSTER RECOMBINANT 1 07/05/2020 [facility]* CONTRAINDICATED No data available REFUSED ======= Immunization Date Facility Info COVID-19 (PFIZER), MRNA, LNP-S, * 07/11/2023 [facility]* <I> INFLUENZA, UNSPECIFIED FORMULATI* 07/11/2023 [facility]* <I> <C> See the Detailed Immunizations Health Summary Component[DIM] for Comments <I> See the Detailed Immunizations Health Summary Component[DIM] for Additional Information * Value is truncated; see the Detailed Immunizations Health Summary Component[DIM] for complete text Assessment/Plan: Assessment/Plan: Change in bowel movements - encourage patient to keep a food and bowel movement log for a couple of weeks to see if there is any correlation to certain foods or amounts of foods and loose stools - patient declined RD referral for route of elmination diet and reintroducti 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 Encourage to take 54 units as prescribed for better coverage throughout the day - continue metformin 1000 mg twice daily - hA1C, urine microalbumin, CBC, CMP today - follows with PACT PharmD Hypertensive disorder - continue losartan 50 mg daily Mixed hyperlipidemia - continue atorvastatin 80 mg daily Multiple nodules of lung - Repeat Lung Cancer Screen (Provider): Patient continues to be a candidate for screening, there are no new clinical exclusions. No abnormal findings suspicious for lung CA present on last chest CT. Screening process reviewed with patient and patient AGREES to continue screening. Refer patient to Lung Cancer Screening Coordinator. CHF/Aortic valve stenosis - -EF 50-55% per echo 02/18/2023 - repeat echo in 01/2026 Polymyalgia rheumatica - continue with rheumatology as scheduled - continue prednisone as prescribed by rheumatology Follow Up Colonoscopy: Colonoscopy is due based on information available to this reminder. Colonoscopy consult has been ordered. See orders tab for details. [facility] verbalized understanding that clinic will only contact them if labs are grossly abnormal and provider is recommending change to current treatment plan. Otherwise will only receive standard results letter. Patient Education of Treatment Plan: Patient indicates readiness to learn, verbalizes understanding, agreement and satisfaction with the treatment plan. Denies further questions. Other: Return to clinic in one year or as needed. /hi/ ZINA MARIANO NURSE PRACTITIONER Signed: 07/11/2023 10:09 ZINA MARIANO ([facility]) Jul 11, 2023 08:50 AM ADVANCE DIRECTIVE: LOCAL TITLE: AD NOTIFICATION AND SCREENING STANDARD TITLE: ADVANCE DIRECTIVE DATE OF NOTE: JUL 11, 2023@08:50 ENTRY DATE: JUL 11, 2023@08:50:49 AUTHOR: MILLY GALDAMEZ COSIGNER: URGENCY: STATUS: COMPLETED ADVANCE DIRECTIVE NOTIFICATION: Patient was given written notification of the following rights: 1. Accept or refuse any medical treatment. 2. Complete a durable power of investor relations specialist for health care. 3. Complete a living will. ADVANCE DIRECTIVE SCREENING: Does patient have an Advance Directive? The patient does not have an Advance Directive. The patient does not wish to create an Advance Directive for health care. /hi/ MILLY Bee [facility] INSTRUMENT TECH Signed: 07/11/2023 08:51 MILLY GALDAMEZ ([facility]) Jul 11, 2023 08:46 AM PRIMARY CARE JOSE FRANCISCO ZAVALETA NOTE: LOCAL TITLE: [facility] NURSING PROGRESS NOTE STANDARD TITLE: PRIMARY CARE NURSING NOTE DATE OF NOTE: JUL 11, 2023@08:46 ENTRY DATE: JUL 11, 2023@08:46:48 AUTHOR: MILLY GALDAMEZ COSIGNER: URGENCY: STATUS: COMPLETED [facility] NURSING PROGRESS NOTE Has ADDENDA TYPE OF VISIT: Appointment Check In Type of appointment: In-person appointment REASON FOR VISIT: Annual, [facility] primary ALLERGIES: WELLBUTRIN (Jun 29, 2016) LISINOPRIL (Sep 25, 2018) PIOGLITAZONE (Feb 17, 2019) SEMAGLUTIDE (Jan 10, 2022) VITAL SIGNS: Blood Pressure: 151/69 (07/11/2023 08:45) Pulse: 68 (07/11/2023 08:45) Respiration: 18 (07/11/2023 08:45) Temperature: 98.6 F [37.0 C] (07/11/2023 08:45) Weight: 212.9 lb [96.57 kg] (07/11/2023 08:45) Height: 67.48 in [171.4 cm] (07/11/2023 08:45) BMI: 32.9 O2 Sat: 95% (07/11/2023 08:45) Pain: 1 (07/11/2023 08:45) PAIN SCREEN: Patient is not having significant pain that they wish to discuss with their provider today. Influenza Immunization: The patient declines to receive the recommended dose of seasonal influenza vaccine. Immunization: INFLUENZA, UNSPECIFIED FORMULATION Refusal Reason: PATIENT DECISION Patient refuses all immunization(s) in the FLU group Date Documented: 07/11/23 08:47 COVID-19 Immunization: Refused Pfizer Monovalent COVID-19 vaccine Immunization: COVID-19 (PFIZER), MRNA, LNP-S, PF, SHERRY-SUCROSE, 30 MCG/0.3 ML (AGES 12+ YEARS) Refusal Reason: PATIENT DECISION Patient refuses all immunization(s) in the COVID-19 group Date Documented: 07/11/23 08:48 Depression Screening: Perform PHQ-2 A PHQ-2 screen was performed. The score was 0 which is a negative screen for depression. Over the past two weeks, how often have you been bothered by the following problems? 1. Little interest or pleasure in doing things Not at all 2. Feeling down, depressed, or hopeless Not at all Suicide Screen: C-SSRS Screening [place] Suicide Severity Rating Scale (C-SSRS) screener 1. Over the past month, have you wished you were or wished you could go to sleep and not wake up? No 2. Over the past month, have you had any actual thoughts of killing yourself? No 3. Over the past month, have you been thinking about how you might do this? Response not required due to responses to other questions. 4. Over the past month, have you had these thoughts and had some intention of acting on them? Response not required due to responses to other questions. 5. Over the past month, have you started to work out or worked out the details of how to kill yourself? Response not required due to responses to other questions. 6. If yes, at any time in the past month did you intend to carry out this plan? Response not required due to responses to other questions. 7. In your lifetime, have you ever done anything, started to do anything, or prepared to do anything to end your life (for example, collected pills, obtained a gun, gave away valuables, went to the roof but didn't jump)? No 8. If YES, was this within the past 3 months? Response not required due to responses to other questions. Tobacco Use Screening: The patient is a former tobacco user. The patient quit five to less than fifteen years ago. Alcohol Use Screen (AUDIT-C): Alcohol Screen: SCREEN FOR ALCOHOL (AUDIT-C) An alcohol screening test (AUDIT-C) was negative (score=0). 1. How often did you have a drink containing alcohol in the past year? Never 2. How many drinks containing alcohol did you have on a typical day when you were drinking in the past year? Response not required due to responses to other questions. 3. How often did you have six or more drinks on one occasion in the past year? Response not required due to responses to other questions. Nursing Annual Screening: Fall History Screen During the past 12 months, have you had any falls? Patient does not report any falls in the past 12 months. MEDICATIONS: Patient is on one of the following medication classes: Antihypertensives, Antidepressants, Antipsychotics, Diuretics, or Controlled substance medication used for pain. FALL RISK ADVICE: Fall Risk Advice provided. Handout entitled Fall Prevention At Home reviewed and given to patient and/or significant other. Script Talk Screen Are you able to read your prescription bottles with your glasses, magnifiers or other aids? Yes or patient not taking any prescriptions. Skin Screen Patient reports any current pressure ulcers, a history of pressure ulcers, or a wound from a medical diagnostic radiographer or Patient is bed-confined or a wheelchair-user or Patient requires assistance to transfer/change position No, Skin Screen is Negative Home Abuse/Violence Screen Is your home free of abuse and violence? Yes MOVE! Program Screen Body Mass Index (BMI)= 32.9 Jeff: Collection DT Specimen Test Name Result Units Ref Range 05/09/2023 08:09 BLOOD !! HEMOGLOBIN A1C 9.1 H % 4.0 - 6.0 !! Indicates COMMENTS AVAILABLE...Refer to Interim Lab Report. [place] Hgb A1C: No data available [place] Hgb A1C: No data available Point of Care Hgb A1C: POC HGB A1C____ Outpatient Nutrition Screen Body Mass Index (BMI)= 32.9 Jeff: Collection DT Specimen Test Name Result Units Ref Range 05/09/2023 08:09 BLOOD !! HEMOGLOBIN A1C 9.1 H % 4.0 - 6.0 !! Indicates COMMENTS AVAILABLE...Refer to Interim Lab Report. [place] Hgb A1C: No data available [place] Hgb A1C: No data available Point of Care Hgb A1C: POC HGB A1C____ Is patient's BMI less than 18.5? No Does patient have swallowing, coughing, or chewing problems affecting oral intake? No Has patient experienced unplanned weight loss or gain greater than 10 pounds over the last 2 months? Yes Is patient's Hgb A1C (Glycosylated Hemoglobin) greater than 9.5? No Is patient receiving Total Parenteral Nutrition (TPN) or Tube Feedings? No Patient Health Education Screen BARRIERS/SPECIAL NEEDS: No barriers identified PREFERRED STYLE OF LEARNING: Watching something Client Assistive Service (KAY) Screen Does the patient require assistance with outpatient visit? Radha /hi[facility] Signed: 07/11/2023 08:50 07/11/2023 ADDENDUM STATUS: COMPLETED PAVE Foot Check: A complete foot check was completed at this encounter. VISUAL INSPECTION: Includes inspection for skin breaks, deformity, erythema, trauma, pallor on elevation, dependent rubor, nail deformities, extensive callus and pitting edema. Visual exam results: Normal PEDAL PULSES: Includes palpation of dorsalis and posterior tibial pulses and signs/symptoms of vascular compromise like pain, pallor, parasthesia or paralysis. Present (even if diminished) SENSORY CHECK: Includes 10 gram Monofilament (Clyde-Gaby) test of sensation. Intact (Greater than or equal to 80% of sites checked) Abnormal (Less than 80% of sites checked): Intact LOW-RISK LOW RISK FOOT EDUCATION: 1. Advised patient not to walk barefoot. Instructed the patient to pay close attention to the style and fit of shoes. 2. Explained the importance of daily foot checks. Explained that loss of sensation leads to callouses. Callouses break down, which result in ulcers that may lead to gangrene and amputation. 3. Stressed the importance of daily foot hygiene. Warm (not hot) bathing of the feet, complete drying and thorough inspection for changes in the condition of the skin constitute daily foot care. Demonstrated how to do a thorough foot check. 4. Emphasized the use of clean, non-restrictive socks/stockings and well fitting shoes. 5. Stressed the importance of immediate follow-up of any foot injuries or ulcers. Explained that he/she should be non- weight bearing whenever there are lesions on the foot, to prevent cellular damage. Level of Understanding: Good /hi/ MILLY Bee [facility] INSTRUMENT TECH Signed: 07/11/2023 08:53 MILLY GALDAMEZ (CB)
--- OUTSIDE RECORDS SUMMARY | 2023-08-14 09:35 | XMS_ITS | Encounter Summary ---
Author Name [facility] Organization Department of [facility] Address [address] [place] [address] Support Name Relationship Address Phone BREE KHOURY Next of Kin [address] [place] [address] BREE KHOURY Emergency Contact [address] [place] [address] Insurance Providers: All historical and [...] Policy Vaughn HU[employer]NA MCR (WNR) MEDICARE ADVANTAGE [facility] (WNR) Jul 29, 2021 [id number] [phone] KHOURY,WE SLEY PATIENT [employer] MCR (WNR) MEDICARE ADVANTAGE MCR (WNR) Jul 29, 2015 [id number] KHOURY,WE SLEY PATIENT [employer] MCR (WNR) MEDICARE ADVANTAGE MCR (WNR) Jul 29, 2015 [id number] KHOURY,WE SLEY PATIENT [employer] MCR (WNR) MEDICARE ADVANTAGE [facility] (WNR) Jul 29, 2015 [id number] KHOURY,WE JASY PATIENT Selected Encounter This section includes the information on record at PA for the Encounter. Date/Time Encounter Type Encounter Description Reason Pro vider Source Jul 11, 2023 12:00 AM Outpatient Encounter EVENT (HISTORICAL) IHE Encounter Template Text not used by PA Plan of Treatment: Future Appointments (+ 6 months) and Future Tests (+/- 45 days) The Plan of Treatment section includes future care activities for the patient [facility] This section includes future appointments and future orders which are active, pending or scheduled. Future Appointments This section includes appointments that were scheduled to occur 6 months from the date of the Encounter, up to a maximum of 20 appointments. The data comes from all [facility]. Appointment Date/Time Appointment Type Appointme nt Facility Name Jul 18, 2023 08:45 AM AMBULATORY - NONE [place] [facility] ([facility]) Jul 25, 2023 02:15 PM AMBULATORY - MEDICINE [place] [facility] ([facility]) Jul 25, 2023 02:30 PM AMBULATORY - MEDICINE [facility] Aug 27, 2023 02:00 PM AMBULATORY - NONE [place] [facility] ([facility]) Sep 05, 2023 02:00 PM AMBULATORY - MEDICINE [facility] Sep 05, 2023 03:00 PM AM[facility]ORY [facility] NONE [place] [facility] Oct 24, 2023 08:30 AM AMBULATORY - NONE [place] [facility] ([facility]) Oct 28, 2023 02:45 PM AMBULATORY - MEDICINE [facility] ([facility]) Oct 28, 2023 03:00 PM AMBULATORY - MEDICINE [facility] Active, Pending, and Scheduled Orders [...] comes from all [facility]. Test Date/Time Test Type Test Details Facility Name Jul 11, 2023 12:00 AM Laboratory - Chemi stry Order MICROALBUMIN/CREATININE RATIO URINE URINE [facility] ([facility]) Jul 11, 2023 10:09 AM Consult Order COMMUNITY CARE-COLONOSCOPY SURVEILLANCE Cons Rack Loader's Choice [place] ([facility]) Lab Results: +/- 30 days of the encounter This section includes the Chemistry and Hematology Lab Results on record with PA for the patient. Radiology Reports and Pathology Reports are provided separately, in subsequent sections. Lab Results This section contains the Chemistry/Hematology Results that were resulted 30 days before or 30 daysafter the date of the Encounter. Date/Time Source Result Type Result - Unit Interpretation Reference Range Comment Jul 11, 2023 09:40 AM [place] ([facility]) C-REACTIVE PROTEIN Specimen Type: PLASMA No comment entered. Ordering Provider: DELIA FARRAR Report Released Date/Time: Apr 17, 2023 10:34 AM Reporting Lab: [facility] [id number] Performing Lab: [facility] [id number] C-REACTIVE PROTEIN 0.50 <5.00 Jul 11, 2023 09:40 AM [place] ([facility]) SED RATE Specimen Type: BLOOD No comment entered. Ordering Provider: DELIA FARRAR Report Released Date/Time: Apr 17, 2023 10:34 AM Reporting Lab: [facility] [id number] Performing Lab: [facility] [id number] SED RATE 6 5-15 Jul 11, 2023 09:40 AM [place] ([facility]) CBC & DIFF Specimen Type: BLOOD Comment: Automated Differential Performed Ordering Provider: DELIA FARRAR Report Released Date/Time: Apr 17, 2023 10:34 AM Reporting Lab: [facility] [phone] Performing Lab: [facility] [id number] WBC 8.43 4.0-11.0 RBC 5.38 4.6-6.2 HGB [...] 0.02 0-0.1 Jul 11, 2023 09:40 AM [place] ([facility]) HEMOGLOBIN A1C Specimen Type: BLOOD Comment: Values [...] Jul 11, 2023 09:24 AM Reporting Lab: [facility] [id number] Performing Lab: [facility] [id number] HEMOGLOBIN A1C 9.1 H 4.0-6.0 Jul 11, 2023 09:40 AM [facility]) LIPID PANEL,NON-FASTING Specimen Type: PLASMA No comment entered. Ordering Provider: ZINA MARIANO Report Released Date/Time: Jul 11, 2023 09:24 AM Reporting Lab: [facility] [id number] Performing Lab: [facility] [phone] CHOLESTEROL 142 <199 .HDL 35 L >40 LDL CALCULATION 78 <99 VLDL CALCULATION 29 <29 NON HDL CHOLESTEROL 107 <129 TRIG(NON FASTING) 144 <149 Jul 11, 2023 09:40 AM [facility]) COMPREHENSIVE METABOLIC PANEL+MG Specimen Type: PLASMA No comment entered. Ordering Provider: ZINA MARIANO Report Released Date/Time: Jul 11, 2023 09:24 AM Reporting Lab: [facility] [phone] Performing Lab: [facility] [id number] CREATININE 1.0 0.7-1.2 UREA NITROGEN 16 8-26 [...]
--- OUTSIDE RECORDS SUMMARY | 2023-08-14 09:36 | XMS_ITS | Encounter Summary ---
Author Name [facility] of [facility] Organization [facility] of [facility] Address [address] [place] [address] Support Name Relationship Address Phone BREE KHOURY Next of Kin [address] [place] [address] BREE KHOURY Emergency Contact [address] [place] [address] Insurance Providers: All historical and [...] Policy Vaughn HUMANA MCR (WNR) MEDICARE ADVANTAGE [facility] (R) Jul 29, 2021 [id number] KHOURY,WE SLEY PATIENT HU[employer] MCR (WNR) MEDICARE ADVANTAGE [facility] (WNR) Jul 29, 2015 [id number] KHOURY,WE SLEY PATIENT HU[employer] MCR (WNR) MEDICARE ADVANTAGE [facility] (WNR) Jul 29, 2015 [id number] KHOURY,WE SLEY PATIENT HUMA[employer] MCR (WNR) MEDICARE ADVANTAGE [facility] (WNR) Jul 29, 2015 [id number] [phone] KHOURY,WE SLEY PATIENT Selected Encounter This section includes the information on record at ID for the Encounter. Date/Time Encounter Type Encounter Description Reason Provider Source Mar 12, 2023 11:30 AM [facility] BY PHARM [facility] 15 [facility]ACY ICD-10-CM E10.40 Type 1 diabetes mellitus with diabetic neuropathy, unsp HELEN AYON Encounter Template Text not used by [facility] Assessments - Encounter Diagnoses This section includes the primary and secondary diagnoses documented for the Encounter. Date/Time Primary/Secondary Diagnosis Diagnosis Name Provider Source Mar 14, 2023 08:28 AM PRIMARY Type 1 diabetes mellitus with diabetic neuropathy, unsp HELEN AYON ([facility]) Plan of Treatment: Future Appointments (+ 6 months) and Future Tests (+/- 45 days) The Plan of Treatment section includes future care activities for the patient from all ID treatmentfacilities. This section includes future appointments and future orders which are active, pending or scheduled. Future Appointments This section includes appointments that were scheduled to occur 6 months from the date of the Encounter, up to a maximum of 20 appointments. The data comes from all ID treatment facilities. Appointment Date/Time Appointment Type Appointme nt Facility Name Apr 04, 2023 08:45 AM AMBULATORY - NONE [facility]) Apr 09, 2023 01:45 PM AMBULATORY - NONE [facility]) Apr 17, 2023 10:00 AM AMBULATORY - [...] 2023 02:30 PM [facility] Aug 27, 2023 02:00 PM AMBULATORY - NONE [place] [facility]) Sep 05, 2023 02:00 PM [facility] Sep 05, 2023 03:00 PM [facility] - NONE [place] [facility] Lab Results: +/- 30 days of the encounter This section includes the Chemistry and Hematology Lab Results on record with [facility] for the patient. Radiology Reports and Pathology Reports are provided separately, in subsequent sections. Lab Results This section contains the Chemistry/Hematology Results that were resulted 30 days before or 30 daysafter the date of the Encounter. Date/Time Source Result Type Result - Unit Interpretation Reference Range Comment Apr 09, 2023 01:47 PM [facility] C-REACTIVE PROTEIN Specimen Type: PLASMA No comment entered. Ordering Provider: DELIA FARRAR Report Released Date/Time: Feb 07, 2023 01:36 PM Reporting Lab: [facility] [place] [phone] Performing Lab: [facility] [place] [phone] C-REACTIVE PROTEIN 1.13 <5.00 Apr 09, 2023 01:47 PM [facility] SED RATE Specimen Type: BLOOD No comment entered. Ordering Provider: DELIA FARRAR Report Released Date/Time: Feb 07, 2023 01:36 PM Reporting Lab: [facility] [place] [phone] Performing Lab: [facility] [place] [phone] SED RATE 9 5-15 Apr 09, 2023 01:47 PM [facility] CBC & DIFF Specimen Type: BLOOD Comment: Automated Differential Performed Ordering Provider: DELIA FARRAR Report Released Date/Time: Feb 07, 2023 01:36 PM Reporting Lab: [facility] [place] [phone] Performing Lab: [facility] [place] [address] WBC 10.25 4.0-11.0 RBC 5.04 4.6-6.2 HGB [...] 2.8 0-10 Apr 09, 2023 01:47 PM [place] ([facility]) HEMOGLOBIN A1C Specimen Type: BLOOD Comment: [...] Mar 14, 2023 08:31 AM Reporting Lab: [facility] [place] [phone] Performing Lab: [facility] [place] [phone] HEMOGLOBIN A1C 9.7 H 4.0-6.0 Social History: Smoking Status (Most current) and Tobacco Use (All prior to encounter date) This section includes the most current, and the historical, smoking and tobacco- related health factors from the ID facility where the Encounter took place. Current Smoking Status This section includes the most current smoking, or tobacco-related health factor, from the ID facility where the Encounter took place. Date/Time Current Smoking Status Comment Facil ity Jul 12, 2022 09:45 AM ID-TOBACCO FORMER USER [place] ([facility]) Tobacco Use History This section includes a history of the smoking, or tobacco-related health factors, that were collected on or before the date of the Encounter. The data comes from the ID facility where the Encounter took place. Date/Time Smoking Status/Tobacco Use Comment F acility Jul 12, 2022 09:45 AM VA-TOBACCO QUIT 5 TO < 15 YRS [place] ([facility]) Jul 13, 2021 09:15 AM VA-TOBACCO FORMER USER [place] ([facility]) Jul 13, 2021 09:15 AM VA-TOBACCO QUIT 5 TO < 15 YRS [place] ([facility]) Jun 28, 2020 09:15 AM VA-TOBACCO FORMER USER [place] ([facility]) Jun 28, 2020 09:15 AM VA-TOBACCO QUIT 5 TO < 15 YRS [place] ([facility]) Mar 23, 2019 03:20 PM VA-TOBACCO FORMER USER [place] ([facility]) Mar 23, 2019 03:20 PM VA-TOBACCO QUIT 5 TO < 15 YRS [place] ([facility]) Apr 01, 2018 02:59 PM VA-TOBACCO FORMER USER [place] ([facility]) Apr 01, 2018 02:59 PM VA-TOBACCO QUIT 5 TO < 15 YRS [place] ([facility]) Jun 28, 2017 01:51 PM FORMER TOBACCO USER 7Y OR GREATE R [facility] ([facility]) Jun 29, 2016 08:43 AM FORMER TOBACCO USE >1Y <7Y [place] ([facility]) Encounter Notes: All associated encounter notes This section contains the clinical notes associated to the Encounter. Date/Time Encounter Note(s) Provider Source Mar 12, 2023 11:39 AM PHARMACY NOTE: LOCAL TITLE: PHARMACOTHERAPY-CLINICAL PHARMACY NOTE STANDARD TITLE: PHARMACY NOTE DATE OF NOTE: MAR 12, 2023@11:39 ENTRY DATE: MAR 12, 2023@11:39:15 AUTHOR: HELEN AYON COSIGNER: URGENCY: STATUS: COMPLETED Visit Type: In-Clinic LUIS KHOURY is a 78 YO followed by [facility] for diabetes medication management. SUBJECTIVE: [place] shares BGs have continued to run higher. Has had several episodes of hypoglycemia while golfing. Has about a month or so remaining of prednisone course for polymyalgia rheumatica for which he is followed by ID rheumatology. ROS: (-) hypoglycemia symptoms (-) hyperglycemia symptoms Freeyle Madeline 2 Report Summary Avg BG= 206mg/dL *above target(>180mg/dl)= 58% (>250mg/dL 27%) *below target(<70mg/dl)= 0% (1 epsiode of true hypo-, duration ~37min) *in target(70-180mg/dl)= 42% scans per day= 17 sensor data captured: 95% predicted A1C: 8.2% Top trends: BGs reasonably well controlled from ~7954-2216 with a steady rise from afternoon to about 2100 and then dropping back down into range overnight. Adherence to medications: denies missed doses OBJECTIVE: [...] 150. MAX OF 16 UNITS PER DOSE Takes 12-20 units 9) INSULIN,GLARGINE-YFGN 100UNIT/ML PEN 3ML INJECT 50 HOLD UNITS UNDER THE SKIN AT BEDTIME FOR DIABETES Confirmed 10) LIDOCAINE 4% TOP CREAM APPLY MODERATE [...] IF NEEDED FOR CHEST PAIN 15) PREDNISONE 5MG TAB TAKE THREE TABLETS BY MOUTH EVERY ACTIVE DAY FOR 30 DAYS, THEN TAKE 2 AND ONE-HALF TABLETS EVERY DAY FOR 30 DAYS, THEN TAKE TWO TABLETS EVERY DAY FOR 30 DAYS FOR POLYMYALGIA RHEUMATICA Height: 67.5 in [171.5 cm] (01/01/2023 14:40) Weight: 202.5 lb [91.85 kg] (03/04/2023 13:43) BMI: 31.3 LABS: Basic Metabolic Panel SODIUM 140 (10/01/22) [...] 30 L (10/22/22) Collection DT Spec HGBA1C 01/01/2023 15:37 BLOOD 8.6 H 09/04/2022 11:46 BLOOD 9.5 H 07/12/2022 11:02 BLOOD 9.1 H Collection DT Specimen Test Name Result Units Ref Range 07/12/2022 11:05 URINE ALB/CREAT RATIO,U 22.7 mg/g creat Ref: <=29.9 07/13/2021 10:03 URINE !! ALB/CREAT RATIO,U canc mg/g creat Ref: <=29.9 07/05/2020 09:11 URINE !! ALB/CREAT RATIO,U canc mg/g creat Ref: <=29.9 !! Indicates COMMENTS AVAILABLE...Refer to Interim Lab Report. Diabetes Related Complications: Macrovascular: [-] Microvascular: -Retinopathy [-] -Nephropathy [-] -Neuropathy [+] ASSESSMENT/PLAN: #DM - Goal A1c <8% (FBG 80-160, PPG <210) d/t comorbidities per VA/DoD guidelines less than 7% if can achieve without hypoglycemia [place] with BGs above goal on CGM, likely related to prolonged course of prednisone. Elevations primarily occuring in the evening with hypoglycemia or near hypoglycemia happening late morning/early afternoon - typically when golfing. Discussed would be reasonable to increase evening dose of aspart to address high readings and hopefully without increasing frequency of lows. Encouraged to carry carb snacks while golfing and consider scanning after each hole. -INCREASE insulin aspart to max dose of 24 units with dinner only, continue with prescribed dose and correction for all other meals #Disease-Specific Med Rec: Completed today - Educated vet on indication/risks/benefits of new/changed medication. - Education provided on therapeutic nonpharmacologic management to achieve goals. - verbalized understanding to all plans discussed today. Questions were answered to vet's satisfaction. Time spent: 35 minutes RTC: April 04 @ 0845 in clinic /hi/ HELEN AYON PHARMD, [facility]ATIONAL HEALTH MANAGER Signed: 03/14/2023 08:31 HELEN AYON ([facility])
--- OUTSIDE RECORDS SUMMARY | 2023-08-14 09:36 | XMS_ITS | Encounter Summary ---
Author Name Department of [facility] Organization Department of [facility] Address [address] [place] [id number] Support Name Relationship Address Phone BREE KHOURY Next of Kin [address] [place] [address] BREE KHOURY Emergency Contact [address] [place] [address] Insurance Providers: All historical and [...] Policy Vaughn [employer] MCR (WNR) MEDICARE ADVANTAGE [facility] (WNR) Jul 29, 2021 [id number] [phone] KHOURY,WE SLEY PATIENT [employer] MCR (WNR) MEDICARE ADVANTAGE [facility] (WNR) Jul 29, 2015 [id number] KHOURY,WE SLEY PATIENT [employer] MCR (WNR) MEDICARE ADVANTAGE [facility] (WNR) Jul 29, 2015 [id number] KHOURY,WE SLEY PATIENT [employer] MCR (WNR) MEDICARE ADVANTAGE [facility] (WNR) Jul 29, 2015 [id number] KHOURY,WE JASY PATIENT Selected Encounter This section includes the information on record at [place] for the Encounter. Date/Time Encounter Type Encounter Description Reason Provider Source Mar 04, 2023 02:30 PM OFFICE O/P EST MOD 30-39 MIN CARDIOLOGY ICD-10-CM I25.10 Athscl heart disease of rosebud coronary artery w/o ang pctOSMANY Abraham A Shelby Encounter Template Text not used by [place] Assessments - Encounter Diagnoses This section includes the primary and secondary diagnoses documented for the Encounter. Date/Time Primary/Secondary Diagnosis Diagnosis Name Provider Source Mar 04, 2023 05:21 PM PRIMARY Athscl heart disease of rosebud coronary artery w/o korin cervantes JOE[facility]ADIAPALOMO [facility] Mar 04, 2023 05:21 PM SECONDARY Essential (primary) hypertension PALOMO RIVERA [facility] Mar 04, 2023 05:21 PM SECONDARY Heart failure, unspecified MIGUELPALOMO [facility] Mar 04, 2023 05:21 PM SECONDARY Mixed hyperlipidemia PALOMO RIVERA [facility] Mar 04, 2023 05:21 PM SECONDARY Nonrheumatic aortic (valve) stenosis JOEELADIAPALOMO [facility] Mar 04, 2023 05:21 PM SECONDARY Polymyalgia rheumatica PALOMO RIVERA Erwin [facility] Mar 04, 2023 05:21 PM SECONDARY Type 1 diabetes mellitus with diabetic neuropathy, unsp [facility]IGUELPALOMO [facility] Plan of Treatment: Future Appointments (+ 6 months) and Future Tests (+/- 45 days) The Plan of Treatment section includes future care activities for the [facility] [place] [facility] This section includes future appointments and future orders which are active, pending or scheduled. Future Appointments This section includes appointments that were scheduled to occur 6 months from the date of the Encounter, up to a maximum of 20 appointments. The data comes from all [place] treatment facilities. Appointment Date/Time Appointment Type Appointme nt Facility Name Mar 12, 2023 11:30 AM AMBULATORY - NONE [facility] Apr 04, 2023 08:45 AM AMBULATORY - [...] 25, 2023 02:30 PM AMBULATORY - MEDICINE [facility] Aug 27, 2023 02:00 PM AMBULATORY - NONE [facility] Lab Results: +/- 30 days of the encounter This section includes the Chemistry and Hematology Lab Results on record with [place] for the patient. Radiology Reports and Pathology Reports are provided separately, in subsequent sections. Lab Results This section contains the Chemistry/Hematology Results that were resulted 30 days before or 30 daysafter the date of the Encounter. Date/Time Source Result Type Result - Unit Interpretation Reference Range Comment Feb 07, 2023 01:52 PM [facility] SED RATE Specimen Type: BLOOD No comment entered. Ordering Provider: DELIA FARRAR Report Released Date/Time: Feb 07, 2023 01:36 PM Reporting Lab: [facility] [id number] Performing Lab: [facility] [id number] SED RATE 10 5-15 Feb 07, 2023 01:52 PM [facility] C-REACTIVE PROTEIN Specimen Type: PLASMA No comment entered. Ordering Provider: DELIA FARRAR Report Released Date/Time: Feb 07, 2023 01:36 PM Reporting Lab: [facility] [id number] Performing Lab: [facility] [id number] C-REACTIVE PROTEIN 2.95 See_Comment Vital Signs: All taken on the encounter date This section contains inpatient and outpatient Vital Signs collected on the date of the Encounter. Date/Time Temperature Pulse Blood Pressure Respiratory Rate SP02 Pain Height Weight Body Mass Index Source Mar 04, 2023 01:43 PM 96.8 F 71 /min 135/66 mm[Hg] 17 /min 97 % 0 202.5 lb 31 [facility] Encounter Notes: All associated encounter notes This section contains the clinical notes associated to the Encounter. Date/Time Encounter Note(s) Provider Source Mar 04, 2023 01:45 PM INTERNAL MEDICINE OUTPATIENT NOTE: LOCAL TITLE: MEDICINE CLINIC NURSING NOTE STANDARD TITLE: INTERNAL MEDICINE OUTPATIENT NOTE DATE OF NOTE: MAR 04, 2023@13:45 ENTRY DATE: MAR 04, 2023@13:45:24 AUTHOR: RANDA GARCÍA EXP COSIGNER: URGENCY: STATUS: COMPLETED TYPE OF VISIT: Appointment Check In Type of appointment: In-person appointment REASON FOR VISIT: Cardiac Interventional visit ALLERGIES: WELLBUTRIN (Jun 29, 2016) LISINOPRIL (Sep 25, 2018) PIOGLITAZONE (Feb 17, 2019) SEMAGLUTIDE (Jan 10, 2022) VITAL SIGNS: Blood Pressure: 135/66 (03/04/2023 13:43) Pulse: 71 (03/04/2023 13:43) Respiration: 17 (03/04/2023 13:43) Temperature: 96.8 F [36.0 C] (03/04/2023 13:43) Weight: 202.5 lb [91.85 kg] (03/04/2023 13:43) Height: 67.5 in [171.5 cm] (01/01/2023 14:40) BMI: 31.3 O2 Sat: 97% (03/04/2023 13:43) Pain: 0 (03/04/2023 13:43) PAIN SCREEN: Patient is not having significant pain that they wish to discuss with their provider today. MEDICATION Active Outpatient Medications (including Supplies): ACCU-CHEK GUIDE (GLUCOSE) TEST STRIP USE 1 STRIP TOPICALLY ACTIVE FOUR TIMES A DAY TO CHECK BLOOD SUGAR--USE WITHIN 3 MINUTES OF REMOVING FROM CONTAINER ASPIRIN 81MG EC TAB TAKE ONE TABLET BY MOUTH EVERY DAY FOR ACTIVE HEART DISEASE ATORVASTATIN CALCIUM 80MG TAB TAKE ONE TABLET BY MOUTH AT ACTIVE BEDTIME FOR CHOLESTEROL CLOPIDOGREL BISULFATE 75MG TAB TAKE ONE TABLET BY MOUTH ACTIVE EVERY DAY FOR 1 YEAR AFTER STENT UNTIL 09/25/2023 CYANOCOBALAMIN 1000MCG TAB TAKE ONE TABLET BY MOUTH EVERY ACTIVE DAY FOR B12 SUPPLEMENT DICLOFENAC NA 1% TOP GEL APPLY 4 GRAMS TOPICALLY THREE ACTIVE TIMES A DAY NEEDED TO AFFECTED AREA FOR PAIN FUROSEMIDE 40MG TAB TAKE ONE TABLET BY MOUTH EVERY MORNING ACTIVE FOR EXCESS FLUID GLUCOSE SENSOR FREESTYLE JULIO CESAR 2 USE 1 SENSOR EVERY 14 ACTIVE DAYS INSULIN,ASPART(EQV-NOVLG)100U N/ML FLXPEN INJECT 12 UNITS ACTIVE UNDER THE SKIN THREE TIMES A DAY WITH MEALS FOR DIABETES - SKIP DOSE IF NOT EATING PLUS 1 ADDITIONAL UNIT FOR EVERY 50 OVER 150. MAX OF 16 UNITS PER DOSE INSULIN,GLARGINE-YFGN 100UNIT/ML PEN 3ML INJECT 50 UNITS HOLD UNDER THE SKIN AT BEDTIME FOR DIABETES LIDOCAINE 4% TOP CREAM APPLY MODERATE AMOUNT TOPICALLY ACTIVE THREE TIMES A DAY FOR PAIN LOSARTAN 50MG TAB TAKE ONE TABLET BY MOUTH EVERY DAY FOR ACTIVE HEART FAILURE METFORMIN HCL 1000MG TAB TAKE ONE TABLET BY MOUTH TWICE A HOLD DAY FOR DIABETES METOPROLOL SUCCINATE 50MG SA TAB TAKE ONE TABLET BY MOUTH ACTIVE EVERY DAY FOR HEART PROTECTION NEEDLE,PEN 31G,8MM USE 1 NEEDLE UNDER THE SKIN DIRECTED ACTIVE FOR INSULIN INJECTIONS *DISPOSE OF IN A HARD-PLASTIC CONTAINER WITH A SCREW-ON LID CONTACT GARBAGE HAULER FOR PROPER DISPOSAL NITROGLYCERIN 0.4MG SL TAB DISSOLVE ONE TABLET UNDER THE ACTIVE TONGUE EVERY 5 MINUTES FOR UP TO 3 DOSES IF NEEDED FOR CHEST PAIN PREDNISONE 5MG TAB TAKE THREE TABLETS BY MOUTH EVERY DAY ACTIVE FOR 30 DAYS, THEN TAKE 2 AND ONE-HALF TABLETS EVERY DAY FOR 30 DAYS, THEN TAKE TWO TABLETS EVERY DAY FOR 30 DAYS FOR POLYMYALGIA RHEUMATICA Over the Counter/Herbal Medications: The patient denies taking any outside medications or herbals. /hi/ RANDA GARCÍA LPN LICENSED PRACTICAL NURSE Signed: 03/04/2023 13:46 RANDA GARCÍA [facility] Mar 04, 2023 11:04 AM CARDIOLOGY OUTPATIENT NOTE: LOCAL TITLE: CARDIAC INTERVENTIONAL CLINIC NOTE STANDARD TITLE: CARDIOLOGY OUTPATIENT NOTE DATE OF NOTE: MAR 04, 2023@11:04 ENTRY DATE: MAR 04, 2023@11:04:32 AUTHOR: OSMANY RIVERA COSIGNER: URGENCY: STATUS: COMPLETED History of Presenting Illness (HPI): Julius Khoury is a 78 year-old gentleman with a history of hypertension, hyperlipidemia, type 2 diabetes mellitus with peripheral neuropathy, remote tobacco use, pulmonary nodules, pernicious anemia, mild aortic stenosis, HFmrEF, and coronary artery disease s/p posterolateral STEMI. On 09/22/2022, he woke from sleep at ~ 3 am with substernal chest pain, shortness of breath, diaphoresis, nausea, and lightheadedness. He dozed until ~ 5:30 am, then developed chest tightness prompting him to seek evaluation. Upon arrival to the [facility] ED, he was hypertensive but otherwise hemodynamically stable. ECG on presentation showed a posterolateral STEMI, he was loaded with ASA 325 mg x 2 and clopidogrel 600 mg and started on heparin gtt. He was taken for emergent coronary angiography which showed a thrombotic occlusion of the LCx and severe 99% stenosis of the mid RCA, left main and LAD had mild disease, ramus intermedius with 40% stenosis. Successful PCI of the proximal LCx was performed with PTCA and placement of 3.5 x 16 mm Synergy drug eluting stent. PCI attempt of mid RCA was unsuccessful due to heavily calcified stenosis, staged intervention recommended. He was admitted to the cardiac intensive care unit due to ongoing chest pain following angiogram. Post-intervention, he was hemodynamically stable and without signs of acute heart failure. Nitroglycerin infusion initiated for ongoing chest pain was quickly weaned. Dual antiplatelet therapy with aspirin 81 mg and clopidogrel 75 mg were continued. Echo 09/22 demonstrated normal LV size with moderately reduced LV function, EF 40% with posterolateral wall motion abnormalities and grade 1/3 diastolic dysfunction. IVC was dilated without respiratory collapse. He was noted to be mildly volume overloaded with lower extremity edema and increased respiratory rate, treated with gentle diuresis utilizing oral and IV furosemide. Staged PCI of proximal to mid RCA stenosis was performed 09/25 with rotational atherectomy, PTCA, and placement of 3.0 x 38 mm Synergy drug eluting stent. During his hospital stay, diabetes was noted to be poorly controlled with Hgb A1c 10.1 on admission, insulin was increased. He was initiated on guideline directed medical therapy with metoprolol tartrate, which was transitioned to metoprolol succinate prior to discharge. Home losartan was continued. His atorvastatin was increased to 80 mg daily, dual antiplatelet therapy with aspirin 81 mg indefinitely and clopidogrel 75 mg daily for 12 months. Further titration of losartan and metoprolol succinate recommended as heart rate and blood pressure allow. SGLT2 inhibitor recommended, as well as consideration for spironolactone following tolerance of SGLT2i. Lasix 40 mg po was prescribed on discharge, with further dosing pending volume status when seen in follow up. He was discharged home in stable condition on 09/26/2022 and seen by his primary care provider 10/02/2022, empagliflozin was initiated. Due to STEMI and PCI, Interventional Cardiology consultation was recommended, for which he was seen on 10/22/2022. He was walking almost daily at the [employer] without anginal symptoms, although activity was limited by arthralgias which were present prior to the initiation of atorvastatin. He was caring for his , who had open heart surgery on 09/21/2022. Lower extremity edema was noted on exam, BNP was obtained and was 105. He presents today for Interventional Cardiology follow up. Since his last visit, prednisone was initiated due to diffuse arthralgias which were presumed due to polymyalgia rheumatica. Following initiation of prednisone, he has noted significant improvement in his arthralgias and legs no longer bother him at night. He plays golf 4 days per week and walks the course without exertional anginal symptoms. He notes fatigue and mild SOB when going up inclines, stable. He also rides his electronic bike frequently without difficulty, using e-assist only when going up hills. Home SBP 120-130s. He denies palpitations, PND, orthopnea, or edema. Review of Systems (ROS) as per HPI and otherwise negative with the following exceptions: Right hand stiffness persists, occasional right hip discomfort. Bruises easily. Allergies: WELLBUTRIN (Jun 29, 2016) LISINOPRIL (Sep 25, 2018) PIOGLITAZONE (Feb 17, 2019) SEMAGLUTIDE (Jan 10, 2022) Pertinent Past Medical History - Computerized Problem list is source for: Active problems - Computerized Problem List is the source for the followin. Type II diabetes mellitus uncontrolled 2. Hypertensive disorder 3. Mixed hyperlipidemia 4. Diabetic peripheral neuropathy associated with type II diabetes mellitus 5. Pernicious anemia 6. History of adenomatous polyp of colon 7. History of tobacco use 8. Multiple nodules of lung 9. Peripheral neuropathy due to type 1 diabetes mellitus 10. CAD - Coronary Artery Disease - 09/22/2022 stemi with 2 stents 11. CHF - Congestive Heart Failure 12. Aortic valve stenosis - mild 09/2022 13. Polymyalgia rheumatica Relevant Active Medications: Active and Recently Outpatient Medications (including Supplies): Active Outpatient Medications [...] EVERY ACTIVE MORNING FOR EXCESS FLUID 8) GLUCOSE SENSOR FREESTYLE JULIO CESAR 2 USE 1 SENSOR ACTIVE EVERY 14 DAYS 9) INSULIN,ASPART(EQV-NOVLG)100U N/ML FLXPEN INJECT 12 ACTIVE UNITS UNDER THE SKIN THREE TIMES A DAY WITH MEALS FOR DIABETES - SKIP DOSE IF NOT EATING PLUS 1 ADDITIONAL UNIT FOR EVERY 50 OVER 150. MAX OF 16 UNITS PER DOSE 10) INSULIN,GLARGINE-YFGN 100UNIT/ML PEN 3ML INJECT 50 HOLD UNITS UNDER THE SKIN AT BEDTIME FOR DIABETES 11) LIDOCAINE 4% TOP CREAM APPLY MODERATE AMOUNT ACTIVE TOPICALLY THREE TIMES A DAY FOR PAIN 12) LOSARTAN 50MG TAB TAKE ONE TABLET BY MOUTH EVERY DAY ACTIVE FOR HEART FAILURE 13) METFORMIN HCL 1000MG TAB TAKE ONE TABLET BY MOUTH HOLD TWICE A DAY FOR DIABETES 14) METOPROLOL SUCCINATE 50MG SA TAB TAKE ONE TABLET BY ACTIVE MOUTH EVERY DAY FOR HEART PROTECTION 15) NEEDLE,PEN 31G,8MM USE 1 NEEDLE UNDER THE SKIN ACTIVE DIRECTED FOR INSULIN INJECTIONS *DISPOSE OF IN A HARD-PLASTIC CONTAINER WITH A SCREW-ON LID CONTACT GARBAGE [facility] FOR PROPER DISPOSAL 16) NITROGLYCERIN 0.4MG SL TAB DISSOLVE ONE TABLET UNDER ACTIVE THE TONGUE EVERY 5 MINUTES FOR UP TO 3 DOSES IF NEEDED FOR CHEST PAIN 17) PREDNISONE 5MG TAB TAKE THREE TABLETS BY MOUTH EVERY ACTIVE DAY FOR 30 DAYS, THEN TAKE 2 AND ONE-HALF TABLETS EVERY DAY FOR 30 DAYS, THEN TAKE TWO TABLETS EVERY DAY FOR 30 DAYS FOR POLYMYALGIA RHEUMATICA Inactive Outpatient Medications Status 1) ACCU-CHEK GUIDE (GLUCOSE) TEST STRIP USE 1 STRIP DISCONTINUED TOPICALLY FOUR TIMES A DAY TO CHECK BLOOD SUGAR--USE WITHIN 3 MINUTES OF REMOVING FROM CONTAINER 2) ATORVASTATIN CALCIUM 40MG TAB TAKE ONE TABLET BY DISCONTINUED MOUTH AT BEDTIME FOR CHOLESTEROL (EDIT) 3) EMPAGLIFLOZIN 25MG TAB TAKE ONE-HALF TABLET BY MOUTH DISCONTINUED EVERY DAY FOR HEART FAILURE 4) EMPAGLIFLOZIN 25MG TAB TAKE ONE TABLET BY MOUTH EVERY DISCONTINUED DAY 5) HYDROCHLOROTHIAZIDE 25MG TAB TAKE ONE TABLET BY MOUTH DISCONTINUED EVERY DAY FOR BLOOD PRESSURE 6) INSULIN NPH HUMAN 100 UNIT/ML NOVOLIN N INJECT 30 DISCONTINUED UNITS UNDER THE SKIN EVERY MORNING AND INJECT 16 UNITS EVERY EVENING FOR DIABETES REFRIGERATE UNTIL OPENED 7) INSULIN REG HUMAN 100 UNIT/ML NOVOLIN R INJECT 22 DISCONTINUED UNITS UNDER THE SKIN EVERY MORNING AND INJECT 20 UNITS EVERY EVENING REFRIGERATE 8) INSULIN SYRINGE 1ML 31G 8MM USE 1 SYRINGE UNDER THE DISCONTINUED SKIN DIRECTED *DISPOSE OF IN A HARD-PLASTIC CONTAINER WITH A SCREW-ON LIDCONTACT GARBAGE [facility] FOR PROPER DISPOSAL 9) INSULIN,ASPART 100UNIT/ML PENFILL 3ML INJECT 6 UNITS DISCONTINUED UNDER THE SKIN EVERY MORNING AND INJECT 8 UNITS TWICE A DAY DIABETES INJECT IMMEDIATELY BEFORE MEAL 10) INSULIN,ASPART(EQV-NOVLG)100U N/ML FLXPEN INJECT 10 DISCONTINUED UNITS UNDER THE SKIN THREE TIMES A DAY WITH MEALS (EDIT) FOR DIABETES - SKIP DOSE IF NOT EATING 11) INSULIN,ASPART(EQV-NOVLG)100U N/ML FLXPEN INJECT 10 DISCONTINUED UNITS UNDER THE SKIN THREE TIMES A DAY WITH MEALS FOR DIABETES SKIP DOSE IF NOT EATING 12) INSULIN,ASPART(EQV-NOVLG)100U N/ML FLXPEN INJECT 6 DISCONTINUED UNITS UNDER THE SKIN EVERY MORNING AND INJECT 8 (EDIT) UNITS EVERYDAY AT NOON AND INJECT 8 UNITS EVERY EVENING FOR DIABETES 13) INSULIN,GLARGINE 100 UNT/ML 3ML SOLOSTAR INJECT 55 DISCONTINUED UNITS UNDER THE SKIN EVERY MORNING FOR DIABETES 14) INSULIN,GLARGINE 100 UNT/ML 3ML SOLOSTAR INJECT 40 DISCONTINUED UNITS UNDER THE SKIN EVERY MORNING FOR DIABETES (EDIT) 15) LOSARTAN 50MG TAB TAKE ONE TABLET BY MOUTH EVERY DAY DISCONTINUED 16) METFORMIN HCL 1000MG TAB TAKE ONE TABLET BY MOUTH DISCONTINUED EVERY MORNING FOR DIABETES (EDIT) 17) METFORMIN HCL 1000MG TAB TAKE ONE TABLET BY MOUTH TWO DISCONTINUED TIMES A DAY FOR DIABETES FOR DIABETES (EDIT) 18) PREDNISONE 20MG TAB TAKE ONE TABLET BY MOUTH EVERY DISCONTINUED DAY FOR POLYMYALGIA RHEUMATICA 19) SEMAGLUTIDE 0.5MG/0.375ML INJ PEN 1.5ML INJECT 0.25MG DISCONTINUED UNDER THE SKIN EVERY WEEK FOR 4 WEEKS, THEN INJECT 0.5MG EVERY WEEK FOR DIABETES Active Non-VA Medications Status 1) Non-VA CYCLOBENZAPRINE HCL 10MG TAB 10MG MOUTH THREE ACTIVE TIMES A DAY NEEDED 2) Non-VA PREDNISONE 20MG TAB 20MG MOUTH DAILY ACTIVE Inactive Non-VA Medications Status 1) Non-VA PREDNISONE 5MG TAB 15MG MOUTH DAILY DISCONTINUED 39 Total Medications Risk Factors: Gender, age, hypertension, hyperlipidemia, diabetes mellitus, remote tobacco use Family History: Father age 74 of a myocardial infarction, he had a history of multiple MIs and was diabetic. Mother at age 99, she was relatively healthy without significant health issues. 3 sisters, 1 age 43 of a sepsis following surgery for and intestinal issue. She may have had a history of a PFO. Other 2 sisters are alive and well. Social History: Marital status: Children: 2 biological sons, one of his sons who is 42 had an ME 2 years ago. He also has a stepson. 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 Tobacco use: Smoked 1 pack/day for 55 years, quit in 2012 ETOH use: Denies Illicit drug use: Denies VITAL SIGNS: Blood Pressure: 135/66 (03/04/2023 13:43) Pulse: 71 (03/04/2023 13:43) Respiration: 17 (03/04/2023 13:43) Temperature: 96.8 F [36.0 C] (03/04/2023 13:43) Weight: 202.5 lb [91.85 kg] (03/04/2023 13:43) Height: 67.5 in [171.5 cm] (01/01/2023 14:40) BMI: 31.3 O2 Sat: 97% (03/04/2023 13:43) Pain: 0 (03/04/2023 13:43) Physical Exam: General: Pleasant, no acute distress HEENT: Facial features symmetrical. Sclera nonicteric Cardiac: RRR. S1, S2. Grade II/ JACQUE noted best at R/LSB. Lungs: Clear to auscultation. Respirations nonlabored. Abdomen: Soft, nontender. Bowel sounds active. Extremities: Trace lower extremity edema, varicosities noted. Neuro: Nonfocal. Psychiatric: Mood and affect are appropriate Most Recent Lab Results: LAB RESULTS TODAY - NONE FOUND BMP/Electrolytes: CREATININE 0.8 (10/01/22) UREA NITROGEN 20 (10/01/22) SODIUM 140 (10/01/22) CHLORIDE 103 (10/01/22) POTASSIUM 4.0 (10/01/22) CO2 28 (10/01/22) GLUCOSE 146 H (10/01/22) CREATININE 0.8 PLASMA (10/01/22 09:41) 0.8 PLASMA (09/04/22 11:46) 0.9 PLASMA (07/12/22 11:01) CALCIUM 9.3 (10/01/22) MAGNESIUM 1.7 (10/01/22) Collection DT Spec WBC HGB HCT PLT MCV 12/11/2022 11:53 BLOOD 8.52 12.3 L 39.4 L 499 H 81.2 10/01/2022 09:41 BLOOD 9.32 13.3 L 42.3 484 H 83.3 09/04/2022 11:46 BLOOD 7.80 14.8 44.9 355 82.8 07/12/2022 11:01 BLOOD 7.05 16.5 50.1 299 84.3 Lipid Profile: CHOLESTEROL 118 (10/22/22) HDL 30 L (10/22/22) LDL CALCULATION 67 (10/22/22) TRIGLYCERIDE 106 (nonfasting) LFTs: ALK PHOSPHATASE 108 (09/04/22) SGPT 17 (09/04/22) SGOT 18 (09/04/22) TSH ____ HEMOGLOBIN A1C 8.6 H (01/01/23) HEMOGLOBIN A1C 9.5 H (09/04/22) 10/22/2022 13:51 PLASMA BNP 105 H pg/mL Ref: <=99 09/04/2022 11:46 PLASMA BNP <10 pg/mL Ref: <=99 INR - NONE FOUND TROPONIN - NONE FOUND Labs from [facility] reviewed: (ABNORMAL) Basic Metabolic Panel (09/26/2022 8:22 AM EFFICIENCY [employer]): Potassium, S 4.3 Sodium, S 134 (L) Chloride, S 98 Bicarbonate, S 22 Anion Gap 14 BUN, S 25 (H) Creatinine 0.75 Estimated GFR (eGFR) >90 Calcium, Total, S 8.8 Glucose, S 367 (H) 70 - 140 mg/dL Basic Metabolic Panel (09/23/2022 3:06 AM EFFICIENCY [employer]): Potassium, S 4.1 Sodium, S 138 Chloride, S 101 Bicarbonate, S 25 Anion Gap 12 BUN, S 18 Creatinine 0.69 (L) eGFR (eGFR) >90 Calcium, Total, S 8.7 (L) Glucose, S 220 (H) Basic Metabolic Panel (09/22/2022 6:50 AM EFFICIENCY [employer]): Potassium, P 3.7 Sodium, P 135 Chloride, P 96 (L) Bicarbonate, P 25 Anion Gap, P 14 BUN, P 18 Creatinine 0.77 eGFR (eGFR) >90 Calcium, Total, P 9.1 Glucose, P 360 (H) 70 - 140 mg/dL CBC with Differential, Blood (09/26/2022 8:22 AM EFFICIENCY [employer]): Hemoglobin 13.8 Hematocrit 43.7 Erythrocytes 5.22 MCV 83.7 RDW 14.5 Platelet Count 375 (H) 135 - 317 x10(9)/L CBC with Differential, Blood (09/25/2022 6:40 AM E[employer]IC[employer]): Hemoglobin 14.2 Hematocrit 43.6 Erythrocytes 5.26 MCV 82.9 RDW 14.3 Platelet Count 395 (H) 135 - 317 x10(9)/L CBC with Differential, Blood (09/24/2022 5:51 AM EFFICIENCY [employer]): Hemoglobin 13.7 Platelet Count 350 (H) 135 - 317 x10(9)/L CBC with Differential, Blood (09/22/2022 6:50 AM EFFICIENCY [employer]): Hemoglobin 14.8 Hematocrit 46.2 Erythrocytes 5.49 MCV 84.2 RDW 13.9 Platelet Count 353 (H) Lipid Panel (09/23/2022 3:06 AM EFFICI[employer]Y [employer]): Triglycerides 85 mg/dL Cholesterol, Total 105 mg/dL Cholesterol, LDL, Calculated 54 mg/dL Cholesterol, HDL, S 34 (L) >=40 mg/dL Cholesterol, Non-HDL, Calculated 71 mg/dL Hepatic Function Panel (09/22/2022 6:50 AM E[employer]IC[employer]): Bilirubin, Total, S 0.7 <=1.2 mg/dL Bilirubin, Direct, S 0.3 0.0 - 0.3 mg/dL Aspartate Aminotransferase (AST), S 35 8 - 48 U/L Alanine Aminotransferase (ALT), S 23 7 - 55 U/L Alkaline Phosphatase, S 138 (H) 40 - 129 U/L Albumin, S 4.2 3.5 - 5.0 g/dL Protein, Total, S 7.6 6.3 - 7.9 g/dL S-TSH (Thyroid-Stimulating Hormone - Sensitive) (09/22/2022 6:50 AM EFFIC[employer]): TSH, Sensitive 2.7 0.3 - 4.2 mIU/L Sedimentation Rate (09/22/2022 6:50 AM EFFICIENCY [employer]): Sedimentation Rate, B 8 3 - 28 mm/h D-Dimer, P 427 <=500 ng/mL FEU 09/22/2022 7:08 AM EFFICIENCY [employer] STMA Hemoglobin A1c (09/23/2022 3:03 AM EFFICIENCY [employer]): Hemoglobin A1c, B 10.1 (H) 4.0 - 5.6 % NT-Pro BNP 62 <=540 pg/mL 09/22/2022 7:22 AM E[employer]IC[employer]Y [employer] STMA (ABNORMAL) Troponin T, 2H/6H, 5th Gen (09/22/2022 9:06 AM EFFICI[employer]): Troponin T, 2 hr, 5th gen 1704 (H) <=15 ng/L 2H Delta 1637 (A) ng/L 09/22/2022 9:33 AM EFFICIENCY [employer]ER [employer] STMA 2H Delta Interp Changing (A) 09/22/2022 9:33 AM EFFICIENCY [employer]ER [employer] STMA Comment: Evaluate for acute myocardial injury Troponin T, 6 hr, 5th gen 4533 (H) <=15 ng/L 09/22/2022 1:34 PM EFFICIENCY [employer] STMA Comment: Consider acute myocardial injury 6H Delta 4466 (A) ng/L 09/22/2022 1:34 PM EFFICIENCY [employer]ER [employer] STMA 6H Delta Interp Changing (A) 09/22/2022 1:34 PM EFFICIENCY [employer] STMA Comment: Evaluate for acute myocardial injury (ABNORMAL) Troponin T, Baseline, 5th gen (09/22/2022 6:50 AM EFFICIENCY [employer]): Troponin T, Baseline, 5th gen 67 (H) <=15 ng/L DIAGNOSTICS ECG 10/22/2022: Normal sinus rhythm rate 65. Left axis. RBBB. LVH. No acute changes. ------ CHEST PORTABLE 1 VIEW 09/22/2022 [facility]: ------ IMPRESSION: No comparison. Negative chest. ----- CHEST 2 VIEWS PA AND LAT 09/04/22: ----- 1. Normal two-view chest for age. Echocardiogram 02/18/2023: Reason For Study: Cardiomyopathy Interpretation Summary 1. The left ventricle is normal in size and low normal systolic function. The visually estimated ejection fraction is 50-55%. 2. The right ventricle is normal size and systolic function is normal. 3. Normal left and right atria. 4. The aortic valve leaflets are not well visualized. There is trivial aortic regurgitation (assessment limited by image quality). There is mild aortic stenosis with mean pressure gradient of 10 mmHG and a valve area of 1.5-2.0 cm2. 5. There is trivial TR and no MR. 6. The inferior vena cava is normal in size, and collapses normally with respiration. Echocardiogram 09/22/2022 [facility]: Hemodynamics Heart Rate: 61 BPM Blood Pressure: 138 / 81 mmHg ECG: Sinus rhythm with ectopics Final Impressions 1. Normal left ventricular chamber size, regional wall motion abnormalities were present (see wall motion graphics), calculated 2-D biplane volumetric ejection fraction of 40%. 2. Grade 1/3 left ventricular diastolic dysfunction, consistent with low to normal left ventricular filling pressure. 3. Normal right ventricular chamber size, normal systolic function, unable to detect peak tricuspid regurgitation velocity for pulmonary artery systolic pressure calculation. 4. Calcified aortic valve. 5. Aortic valve systolic mean Doppler gradient 7 mmHg. 6. No pericardial effusion. Comments Although the aortic valve calcification does not look severe and there does not appear to be significant aortic stenosis, not all acoustic windows were used to assess the severity of the aortic stenosis. Clinical /physical examination correlation recommended. RBM Findings Echo performed at the patient's bedside. There are no previous echocardiograms available for comparison. LEFT VENTRICLE: Normal left ventricular chamber size. Calculated 2-D biplane volumetric left ventricular ejection fraction of 40% with the use of ultrasound enhancing agent. Regional wall motion abnormalities were present (see wall motion graphics). Grade 1/3 left ventricular diastolic dysfunction, consistent with low to normal left ventricular filling pressure. RIGHT VENTRICLE: Normal right ventricular chamber size. Normal right ventricular systolic function. Unable to detect peak tricuspid regurgitation velocity for pulmonary artery systolic pressure calculation. ATRIA: Normal left atrial size. Left atrial volume index 20 ml/m2. Normal right atrial size by visual estimate. CARDIAC VALVES: Trileaflet aortic valve. Calcified aortic valve. Aortic valve systolic mean Doppler gradient 7 mmHg. No aortic valve regurgitation. Thickened mitral valve. Trivial mitral valve regurgitation. Normal pulmonary valve. Normal tricuspid valve. Trivial tricuspid valve regurgitation. OTHER ECHO FINDINGS: Enlarged inferior vena cava size with no inspiratory collapse. Ascending aorta not well visualized. Abdominal aorta incompletely visualized. No atrial level shunt by color flow imaging. No intracardiac mass or thrombus, but the left atrial appendage cannot be visualized adequately with transthoracic echo to exclude thrombus in this location. No pericardial effusion. Attempts were made to optimize the echocardiographic images and two or more left ventricular segments were not visualized adequately to evaluate cardiac structure. The patient's current allergies and medications have been screened. Intravenous Lumason ultrasound enhancement agent(s) administered to enhance endocardial border definition. Imaging enhancement agent administered per Echocardiography Contrast Administration Protocol Reference Document [id number]. Patient met an inclusion criterion and did not have contraindications in screening sections. CORONARY ANGIOGRAPHY, PERCUTANEOUS CORONARY ANGIOPLASTY, STENT PLACEMENT 09/22/2022 [facility]: PROCEDURE TYPES 1. CORONARY ANGIOGRAPHY 2. PERCUTANEOUS CORONARY ANGIOPLASTY 3. CORONARY STENT PLACEMENT FINAL DIAGNOSIS 1. ST-elevation myocardial infarction 2. Severe coronary artery atherosclerosis 3. Successful percutaneous coronary intervention with drug eluting stent CORONARY DIAGNOSTIC SUMMARY Coronary artery dominance is right. The left main coronary artery is 10% obstructed by a discrete lesion. The proximal left anterior descending artery is 20% obstructed by diffuse disease. The distal segment is normal size, diseased. The proximal circumflex artery is 100% obstructed by a discrete lesion. The ramus intermedius segment is 40% obstructed by a discrete lesion. The middle right coronary artery is 99% obstructed by a discrete lesion. 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 CORONARY INTERVENTION SUMMARY Successful intervention of the Proximal Circumflex Artery. The preintervention stenosis was 100%. The post intervention stenosis was 0%. Devices used include PTCA and Stent. RADIATION DOSE DATA Procedure cumulative skin dose (mGy): 514.05 Procedure cumulative dose area product (Gy-cm2): 41.29 Fluoro Time (Min): 14.44 CONTRAST DOSE DATA IOHEXOL 350 MG IODINE/ML INTRAVENOUS SOLUTION: 100mL Brief Op Note - Geetha Adler M.D. - 09/22/2022 7:22 AM [employer] [facility]: Formatting Procedure: Coronary angiography. Successful PCI of prox LCx with PTCA and deployment of a 3.5 x 16 mm Synergy TAMMIE Unsuccessful PCI of mid RCA due to inability to deliver equipment past heavily calcified stenosis Implant Name Type Inv. Item Serial No. Can Tender Lot No. LRB No. Used Action STNT SYNERGY XD DE 3.50X16 - [id number] Cardiac Stent STNT SYNERGY XD DE 3.50X16 [employer] [id number] N/A 1 Implanted Operators: Mike Garcia M.D., Ph.D. Geetha Adler M.D. Indication: Posterior STEMI Access Site(s): Right common femoral artery, 6 [place] sheath(s). Sutured in at the end of the case to be removed later in recovery. Complications: No Recommendations: -Aspirin 81mg daily indefinitely barring any complications -Clopidogrel 75 mg daily for 12 months as part of dual antiplatelet therapy from 07/22/2023 -Will plan for staged PCI of mid RCA this Saturday with rotational atherectomy CORONARY ATHERECTOMY, PERCUTANEOUS CORONARY ANGIOPLASTY, STENT PLACEMENT 09/25/2022 [facility]: PROCEDURE TYPES 1. CORONARY ATHERECTOMY 2. PERCUTANEOUS CORONARY ANGIOPLASTY 3. CORONARY STENT PLACEMENT FINAL DIAGNOSIS 1. Severe coronary artery atherosclerosis 2. Rotational atherectomy 3. Successful percutaneous coronary intervention with drug eluting stent PRE-PROCEDURE DIAGNOSIS 1. ST Elevation Myocardial Infarction Involving Left Circumflex Coronary Artery (HCC) 2. Atherosclerotic Heart Disease Of [place] Coronary Artery Without Angina Pectoris CORONARY DIAGNOSTIC SUMMARY Coronary artery dominance is right. The left main coronary LAD coronary Circumflex coronary were not injected. The proximal right coronary artery is 99% obstructed by a tubular lesion and 20% obstructed by diffuse disease. 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 CORONARY INTERVENTION SUMMARY Successful intervention of the Proximal Right Coronary Artery. The preintervention stenosis was 99%. The post intervention stenosis was 0%. Devices used include Atherectomy, PTCA and Stent. RADIATION DOSE DATA Procedure cumulative skin dose (mGy): 277.76 Procedure cumulative dose area product (Gy-cm2): 24.40 Fluoro Time (Min): 16.09 CONTRAST DOSE DATA IOHEXOL 350 MG IODINE/ML INTRAVENOUS SOLUTION: 70mL For the complete report, see the Order-Level Documents. OR Notes Brief Op Note - Geetha Adler M.D. - 09/25/2022 9:48 AM [employer]: Images from the original note were not included. PATIENT: Julius Khoury : 1945 DATE OF SERVICE: 09/25/2022 Procedure: Coronary angiography. Successful PCI of prox-mid RCA with rotational atherectomy, PTCA, and deployment of a 3.0 x 38 mm Synergy TAMMIE Implant Name Type Inv. Item Serial No. Can Tender Lot No. LRB No. Used Action STNT SYNERGY XD DE 3.00X38 - [id number] Cardiac Stent STNT SYNERGY XD DE 3.00X38 [employer] [id number] N/A 1 Implanted Operators: Mike Garcia M.D., Ph.D. Geetha Adler M.D. Indication: Staged RCA PCI, recent anterior STEMI Access Site(s): Right common femoral artery, 6 [place] sheath(s). Sutured in at the end of the case to be removed later in recovery. Complications: No Recommendations: -Aspirin 81mg daily indefinitely barring any complications -Clopidogrel 75 mg daily for 12 months as part of dual antiplatelet therapy from 09/25/2022 -Transfer back to cardiology floor service Assessment/Plan: Julius Khoury is a 78 year-old gentleman with a history of hypertension, hyperlipidemia, type 2 diabetes mellitus with peripheral neuropathy, remote tobacco use, pulmonary nodules, pernicious anemia, mild aortic stenosis, HFmrEF, and coronary artery disease s/p posterolateral STEMI 09/22/2022. Emergent coronary angiography revealed thrombotic occlusion of the LCx and severe 99% stenosis of the mid RCA, left main and LAD had mild disease, ramus intermedius with 40% stenosis. Successful PCI of the proximal LCx was performed with PTCA and placement of 3.5 x 16 mm Synergy drug eluting stent. PCI attempt of mid RCA was unsuccessful due to heavily calcified stenosis, staged intervention was performed 09/25/2022. Proximal to mid RCA stenosis was treated with rotational atherectomy, PTCA, and placement of 3.0 x 38 mm Synergy drug eluting stent. Echo 09/22 demonstrated normal LV size with moderately reduced LV function, EF 40% with posterolateral wall motion abnormalities and grade 1/3 diastolic dysfunction. IVC was dilated without respiratory collapse. During his hospital stay, he was found to be mildly volume overloaded, treated with IV followed by oral Lasix. Diabetes mellitus was found to be poorly controlled with Hgb A1c during his hospital stay 10.1, insulin was increased and PCP has since initiated empagliflozin. Since his ME and subsequent PCI, he has had no further episodes of chest pain. He golfs 4 days per week and walks the course, as well as rides his e-bike, without anginal symptoms. He notes only mild SOB and fatigue when walking up inclines on the golf course. Since prednisone was initiated for his polymyalgia rheumatica, his arthralgias have significantly improved. Taper dose schedule is currently in process, he is hopeful his arthralgias will not worsen. Echo obtained 02/18/2023 shows improved LV function, EF previously was 40% and is now 50-55%. Mild aortic stenosis was present with mean pressure gradient of 10 mmHg and MICHAEL of 1.5-2.0 cm2. IVC was normal in size and collapsed normally with respiration. He appears euvolemic on exam today. Plan: 1. CAD/STEMI/PCI: *Dual antiplatelet therapy: -ASA 81 mg daily to continue indefinitely, -Clopidogrel 75 mg daily uninterrupted for a minimum of one year post most recent PCI, through 09/25/2023. -Counseled on importance of dual antiplatelet therapy. *High intensity statin therapy with atorvastatin 80 mg daily. *Cardiac Rehab discussed, deferred due to arthritic discomfort. Secondary prevention measures: *30 minutes of aerobic activity such as walking or comparable exercise daily. *Weight loss/management. *Incorporation of 5 servings of fruits and vegetables daily and minimization of saturated fat 2. HFrecEF: EF 40% per echo. Grade 1/3 diastolic dysfunction. Current regimen metoprolol succinate 50 mg daily, losartan 50 mg daily, Lasix 40 mg daily, empagliflozin 12.5 mg daily. EF per 02/18/2023 50-55%. *Continue current therapy. 3. Aortic stenosis: Mild per 09/22/2022 echo with mean gradient 7 mmHg, trileaflet aortic valve. Echo 02/18/2023: Mild aortic stenosis was present with mean pressure gradient of 10 mmHg and MICHAEL of 1.5-2.0 cm2. *Repeat echo in 3 years under PCP direction. 4. Hyperlipidemia: Lipids 09/23/2022 on atorvastatin 40 mg daily: TC 105, TG 85, LDL 54, HDL 34. Atorvastatin increased to 80 mg daily with ME. Lipids today: TC 118, TG 106 (nonfasting), HDL 30, LDL 67. *Recommend LDL reduction to goal of 70 or < 50% of baseline, whichever is lower. Currently at goal. *Continue atorvastatin 80 mg daily. 5. Hypertension: *Goal blood pressure < 130/80 per 2017 ACC/AHA guidelines. 6. Type 2 diabetes mellitus with peripheral neuropathy: Hgb A1c 10.1 on 09/23/2022, improved. Hgb A1c 8/6 on 01/01/2023. *Per PCP 7. COPD: Denies SOB, no PFTs available. *Per PCP 8. Arthralgias/polymyalgia rheumatica: *Per Rheumatology 9. Follow up: Interventional Cardiology follow up in 6 months. Today's testing results, significance, and plan were discussed in lay-terms. Thank you for allowing Interventional Cardiology to participate in the care of your patient. Please do not hesitate to contact me with further questions or concerns. The above note may have been created with voice recognition software, unintentional word substitution may occur. Total time spent in review of medical records, patient care, counseling, and documentation was 80 minutes. /hi/ OSMANY RIVERA NP NURSE PRACTITIONER Signed: 03/04/2023 17:23 OSMANY RIVERA [facility]
--- OUTSIDE RECORDS SUMMARY | 2023-08-14 09:36 | XMS_ITS | Encounter Summary ---
Author Name [facility] of [facility] Organization [facility] Address [address] [place] [id number] Support Name Relationship Address Phone BREE KHOURY Next of Kin [address] [place] [address] BREE KHOURY Emergency Contact [address] [place] [address] Insurance Providers: All historical and [...] Name Patient's Relationship to Policy Vaughn [employer] [facility] (WNR) MEDICARE ADVANTAGE [facility] (WNR) Jul 29, 2021 [id number] KHOURY,CHIP SLEY PATIENT [employer] [facility] (WNR) MEDICARE ADVANTAGE [facility] (WNR) Jul 29, 2015 [id number] KHOURY,WE SLEY PATIENT [employer] [facility] (WNR) MEDICARE ADVANTAGE [facility] (WNR) Jul 29, 2015 [id number] KHOURY,WE SLEY PATIENT [employer] [facility] (WNR) MEDICARE ADVANTAGE [facility] (WNR) Jul 29, 2015 [id number] KHOURY,CHIP MARKY PATIENT Selected Encounter This section includes the information on record at [place] for the Encounter. Date/Time Encounter Type Encounter Description Reason Provider Source Feb 20, 2023 07:19 AM Outpatient Encounter OPHTHALMOLOGY ICD-10-CM Z01.01 Encounter for exam of eyes and vision w abnormal findings PAUL TADEO [place] Encounter Template Text not used by [facility] Assessments - Encounter Diagnoses This section includes the primary and secondary diagnoses documented for the Encounter. Date/Time Primary/Secondary Diagnosis Diagnosis Name Provider Source Feb 20, 2023 07:44 AM PRIMARY Encounter for exam of eyes and vision w abnormal findings PAUL TADEO [facility] Feb 20, 2023 07:44 AM SECONDARY Combined forms of age-related cataract, bilateral PAUL TADEO [facility] Feb 20, 2023 07:44 AM SECONDARY Type 1 diabetes mellitus without complications PAUL TADEO [facility] Plan of Treatment: Future Appointments (+ 6 months) and Future Tests (+/- 45 days) The Plan of Treatment section includes future care activities for the patient from all [place] treatmentfacilities. This section includes future appointments and future orders which are active, pending or scheduled. Future Appointments This section includes appointments that were scheduled to occur 6 months from the date of the Encounter, up to a maximum of 20 appointments. The data comes from all [place] treatment facilities. Appointment Date/Time Appointment Type Appointme nt Facility Name Feb 22, 2023 01:30 PM [facility] ([facility]) Mar 04, 2023 02:30 PM AMBULATORY - MEDICINE [facility] Mar 12, 2023 11:30 AM AMBULATORY - [...] 2023 02:15 PM [facility] - [facility] ([facility]) Jul 25, 2023 02:30 PM AMBULATORY - MEDICINE [facility] Lab Results: +/- 30 days of the encounter This section includes the Chemistry and Hematology Lab Results on record with [place] for the patient. Radiology Reports and Pathology Reports are provided separately, in subsequent sections. Lab Results This section contains the Chemistry/Hematology Results that were resulted 30 days before or 30 daysafter the date of the Encounter. Date/Time Source Result Type Result - Unit Interpretation Reference Range Comment Feb 07, 2023 01:52 PM [facility] C-REACTIVE PROTEIN Specimen Type: PLASMA No comment entered. Ordering Provider: DELIA FARRAR Report Released Date/Time: Feb 07, 2023 01:36 PM Reporting Lab: [facility] [id number] Performing Lab: [facility] [id number] C-REACTIVE PROTEIN 2.95 See_Comment Feb 07, 2023 01:52 PM [facility] SED RATE Specimen Type: BLOOD No comment entered. Ordering Provider: DELIA FARRAR Report Released Date/Time: Feb 07, 2023 01:36 PM Reporting Lab: [facility] [id number] Performing Lab: [facility] [id number] SED RATE 10 5-15 Encounter Notes: All associated encounter notes This section contains the clinical notes associated to the Encounter. Date/Time Encounter Note(s) Provider Source Feb 20, 2023 07:44 AM LETTERS: LOCAL TITLE: EYE TECS LETTERS STANDARD TITLE: LETTERS DATE OF NOTE: FEB 20, 2023@07:44 ENTRY DATE: FEB 20, 2023@07:45:01 AUTHOR: PAUL TADEO COSIGNER: URGENCY: STATUS: COMPLETED Jan LUIS KHOURY [address] [place], [place] [address] Dear LUIS KHOURY, Thank you for your recent visit to the [facility]-Based Eye Care Services (TECS) Program at your local [facility] facility. The main goal of the TECS program is to screen for visually significant eye conditions. Based on the review of your information and photos taken today, we are happy to inform you that your eye screening exam shows that you appear to be low risk for vision problems. Your eyes are either healthy for your age group or you have very mild changes and it is safe to follow up in one year or more, per the provider recommendations. (Please see TECS exam note for this visit for full exam details. You can access this on My [employer] at [email or web address] if you would like). The TECS program screens Veterans for common eye diseases such as glaucoma, cataracts, macular degeneration, and diabetic damage to the eyes (if someone is diabetic). It is not intended to replace an in-person eye exam. If you have diabetes, you will continue to receive tele-retinal screening orders from your primary care provider. If you are a non-diabetic patient, we recommend another eye evaluation within the next 1-3 years. If you have been seen by a non-VA eye care provider, please bring your records to your next [facility] appointment. If you notice any sudden changes in your vision, please contact the eye clinic immediately for earlier or urgent referral or go to the Emergency Department for an urgent evaluation. Eye Clinic: [place] [phone] Please contact TECS at [facility] [phone] if you have any questions about your recent TECS visit. For scheduling actions, call [place] [phone]. We appreciate the opportunity to serve you. Diabetes As you are probably aware from discussions with your primary care provider, Diabetes is an ongoing condition that can impact various parts of the body. Diabetes can include vascular changes in the eye and the retina. Please make sure to keep your primary care follow up for systemic management including blood sugar, blood pressure, and lipids (such as your cholesterol and triglycerides). As you are probably aware from discussions with your primary care provider, the risks of problems from Diabetes are lower when systemic conditions such as these are well controlled. Please make sure to schedule and keep all recommended eye appointments. The risks with Diabetes, especially when there is eye involvement includes the risk of progressive changes and even can include the risk of vision loss and even blindness. That is why it is important to schedule and keep all recommended appointments for periodic monitoring as well as more frequent follow up for testing and treatment when Diabetic eye changes are present. As always, if you ever have any sudden changes in blood sugar or any sudden vision changes, or other health concerns, please be sure to contact your primary care provider immediately for care instructions. PAUL TADEO [facility] Feb 20, 2023 07:25 AM TELEHEALTH NOTE: LOCAL TITLE: OPHTHALMOLOGY/OPTOMETRY EYE TECS PROVIDER CONSULT STANDARD TITLE: TELEHEALTH NOTE DATE OF NOTE: FEB 20, 2023@07:25 ENTRY DATE: FEB 20, 2023@07:25:38 AUTHOR: TADEO,PAUL R EXP COSIGNER: URGENCY: STATUS: COMPLETED TECS Director Of Creative Services Note: 02/19/2023 08:01 Local Title: EYE TECS OFFICE CLIN ASST Standard Title: TELEHEALTH NOTE [facility]-based Eye Care Services (TECS) Director Of Creative Services Note LUIS KHOURY [phone] Telehealth Consent and Patient Identification Verification: Verified patient identity with 2 separate identifiers prior to the beginning of the visit: Yes Patient was informed that their information and images will be uploaded securely to the [place] computer system and sent to be remotely interpreted by an eye provider. Recommendations/findings will be conveyed to them via phone call, video chat, and/or letter. Yes Patient verbalized understanding and agreed to participate in the TECS telemedicine eye exam today. Yes TECS Visit Type: Ocular Disease Monitoring COMPREHENSIVE SCREEN: HISTORY: Chief Complaint: Yearly check History of Present Illness: 1 year Borderline Glaucoma follow up in TECS, also diabetic. Denies any concerns. states he is on Prednisone and A1c are unstable. Telehealth: Telehealth explained to . [place] understands that exam will be reviewed in the next three business days by an eye doctor and the patient will receive either a phone call or a letter. Dilation: Side- effects/risks/benefits of dilating drops reviewed. [place] stated understanding and consented to dilation; dilation warning sheet given; mydriatic glasses recommended and dispensed. Last Eye Exam: 1-2 years ago Location of last eye exam: [facility] Type of eye exam: T[facility]S [facility] HISTORY & REVIEW OF SYSTEMS No pain, decreased vision, sudden change in flashes or floaters, or sudden onset double vision. Glare symptoms - OU for 2 Years or more Night driving difficulty DIABETES HISTORY: The patient has diabetes Duration of Diabetes: More than 10 years The patient is on insulin EYE DISEASE(S) HISTORY: Tecs Director Of Creative Services 02/16/2022 [facility] E[facility] DX-CATARACTS Additional Eye Disease Information: Glaucoma: Glaucoma Suspect - OU C/D OD>OS EYE PROCEDURE(S) HISTORY: 02/16/2022 [facility] EYE PROCEDURE-NONE TRAUMA HISTORY: H/O Foreign Body - OS [place] poked eye, several years ago FAMILY HISTORY GLAUCOMA: Mother SOCIAL HISTORY: 02/16/2022 Tecs Tobacco Hx-No Quit EYE MEDICATION(S): No Current Eye Medications REFRACTION AND VISION: Wearing Rx (WRx): OD: -0.50 +1.25 x010 Add 2.50 OS: -1.75 +2.50 x165 Add 2.50 is happy with current eyeglasses Current Style: PAL Current Glasses Condition: Good condition/Not damaged WRx VA: OD: 20/20- OS: 20/20- Auto Refraction (ARx): OD: -0.75 +1.50 x017 OS: +0.25 +1.50 x164 ARx VA: OD: 20/25 OS: 20/30 Manifest Refraction (MRx): OD: -0.50 +1.50 x010 Add 2.50 OS: -1.50 +2.50 x163 Add 2.50 Final MRx VA: OD: 20/20- Nva J1+ OS: 20/20- Nva J1+ FINAL RX Tecs [employer] 02/16/2023 Tecs Refrac-Final Mrx Od -0.50+1.18y088 ADD:+2.50 Tecs Refrac-Final Mrx Os -1.75+2.49j745 ADD:+2.50 Additional MRx Information: Final MRx: OD: -0.50 +1.50 x010 Add 2.50 OS: -1.50 +2.50 x163 Add 2.50 K Readings: K1 OD 46.50@109 K2 OD 47.00@019 K1 OS 45.25@056 K2 OS 45.75@146 Rx Comments: No glasses today, new 01/2022, vision stable. PACHYMETRY: Pachymetry Past Results: No data available INTRAOCULAR PRESSURE (IOP): Method: Date/Time: Jan@08:18 Rebound Tonometer OD: 17 OS: 17 PUPILS/ANTERIOR CHAMBER (AC) Penlight or slit lamp (if available) exam unremarkable Pupils are equal, round, and reactive to light No afferent defect Pupils are dilated - Side effects of dilation medication discussed, patient stated clear understanding, and patient consented to dilation. - Patient advised not to drive if they feel they have any symptoms which could affect their ability to drive safely. - Patient advised not to engage in any activities which could put themselves or others at risk if they feel they have any symptoms which could affect their ability to perform those activities safely. - Post-mydriatic glasses discussed and dispensed to reduce light sensitivity and increase comfort in bright sunlight. - Patient instructed to report to Eye Clinic or Emergency Room IMMEDIATELY if severe eye pain, facial pain, loss of vision or cloudy vision, severe headaches, or nausea occurs. Medication: 1% Tropicamide, 2.5% Phenylephrine, 0.5% Proparacaine Date/Time: Jan@08:19 Which Eye? OD How many drops? 1 ea OS How many drops? 1 ea IMAGING/TESTING: Fundus Photographs were done at this encounter Optical Coherence Tomography (OCT) was done at this encounter The patient DID have Optical Coherence Tomography done - Optic Nerve CATARACT EVALUATION/COMMUNITY CARE/VOICEMAIL/HANDOUTS: Cataract surgery evaluation is not applicable for this patient The patient is NOT willing to go to community care if applicable Per , okay to leave message regarding results and plan of care. Telephone number and address verified. No voicemail available. Phone number and address verified. CONSULT ORDERS: Patient communication preferences Best Contact Number: Voicemail set up: No voicemail Preferred Contact Method:* Patient prefers results letter to be mailed, phone call only if necessary for questions, concerns, or abnormal exam results Appendix (abbreviations): AC (Anterior Chamber); AREDS (Age Related Eye Disease Study); ARX (Auto Refraction); BID (Two Times Daily); C:D (Cup-to-Disc); CIC (Care In The Community); RETAIL SALES ADVISOR (Cyclophotocoagulation); CSME (Clinically Significant Macular Edema); DFE (Dilated Fundus Exam); Dorz/Timol (Dorzolamide/Timolol); DSEK (Descemet's Stripping Endothelial Keratoplasty); FAF (Fundus Autofluorescence); F/U (Follow up); GCC (Ganglion Cell Complex); Gonio (Gonioscopy); H/O (History Of); HTN (Hypertension); HVF (Taylor Visual Field); IOL (Intraocular Lens); IOP (Intraocular Pressure); K (Keratometry); LASIK (Laser-Assisted In Situ Keratomileusis); MD (Mean Deviation when used with visual field); dB (decibels); MRx (Manifest Refraction); NeoPolyDex/Erythro (Neomycin Polymyxin B Dexamethasone/Erythromycin); NFL (Nerve Fiber Layer); NPDR (Nonproliferative Diabetic Retinopathy); OCT (Optical Coherence Tomography); OD (Right Eye); OS (Left Eye); OU (Both Eyes); PDR (Proliferative Diabetic Retinopathy); PFATs (Preservative Free Artificial Tears); RK (Radial Keratotomy); RNFL (Retinal Nerve Fiber Layer); RTC (Return To Clinic); scVA (Visual Acuity Without Correction/Glasses); ERLINDA (Guyanese Interactive Threshold Algorithm); TID (Three Times Daily); UV (Ultraviolet); VA (Visual Acuity); WRx (Prescription glasses currently worn); WRx VA (Visual Acuity With Prescription Glasses); YAG (Yttrium Aluminum Remy) Signed by: /hi/ DELL SORENSEN 02/19/2023 08:28 T[facility]S [place] Note: EXTERNAL PHOTOGRAPH ASSESSMENT: External photo quality adequate for interpretation Findings: Presence of Lenticular Opacity: OU Moderate nuclear sclerotic cataracts with cortical spoking inferiorly OD>OS. FUNDUS PHOTOGRAPH INTERPRETATION: Fundus Image Quality: Adequate OPTIC NERVE ASSESSMENT: Cup-to-Disc ratio: OD: 0.25, healthy and no neovascularization of the disc. OS: 0.30, healthy and no neovascularization of the disc. No apparent abnormalities OU MAC[place]A ASSESSMENT: No apparent abnormalities OU RETINA ASSESSMENT: No apparent abnormalities: OU VESSEL ASSESSMENT: No apparent abnormalities: OU PACHYMETRY INTERPRETATION: OD: 567 OS: 584 OPTICAL COHERENCE TOMOGRAPHY (OCT): OCT Nerve: Signal strength adequate? Yes Average RNFL thickness? OD: 93 OS: 101 Findings: Abnormal: Other/Comments(OCT Nerve): Single clock hour of statistical thinning at 12 OD. No clinically sig change from last year and this is likely physiologic. Average RNFL (greater than 10 microns) between the two eyes? No Nonglaucomatous appearance of abnormal OCT? Yes OCT GCC macula completed? No Previous OCT nerve present? Yes Significant progression in C:D ratio? No Significant RNFL progression? No ASSESSMENT: Intraocular Pressure(past entry): Tecs Dimple Kaur 02/19/2023 TECS Eye IOP-OD 17 TECS Eye IOP-OS 17 Previous images and studies reviewed; greater than 5 minutes spent in the care of this patient. TECS Exam Shows: Patient evaluated in Technology-based Eye Care Services (TECS). This assessment is based on an extensive history, diagnostic technology, and imaging. The TECS exam does not replace a [id number] exam. Cataract: Patient has a cataract but it is not visually significant and a referral for surgical evaluation is not recommended. OU Comment: Moderate nuclear sclerotic cataracts with cortical spoking inferiorly OD>OS. Diabetes: No diabetic retinopathy OU On prednisone and difficult DM control. Patient well aware. Attempt glycemic control as well as possible. Refractive error: Spectacle Prescription: Spectacle prescription was not ordered: Other: Happy with current specs FOLLOW-UP: Follow-up Recommendation: In-Person Exam Within 12 months: Jan DISPOSITION: Result letter sent. RTC order and /or consult placed as indicated as per protocol. Other: Patient stated prefers letter only and no call unless concerns. Not called today. Telehealth encounter completed by remote provider at [facility]: [facility] Greater than 5 minutes of time spent in the care of this patient. Appendix (abbreviations): AC (Anterior Chamber); AREDS (Age Related Eye Disease Study); ARX (Auto Refraction); BID (Two Times Daily); C:D (Cup-to-Disc); CIC (Care In The Community); RETAIL SALES ADVISOR (Cyclophotocoagulation); CSME (Clinically Significant Macular Edema); DFE (Dilated Fundus Exam); Dorz/Timol (Dorzolamide/Timolol); DSEK (Descemet's Stripping Endothelial Keratoplasty); FAF (Fundus Autofluorescence); F/U (Follow up); GCC (Ganglion Cell Complex); Gonio (Gonioscopy); H/O (History Of); HTN (Hypertension); HVF (Taylor Visual Field); IOL (Intraocular Lens); IOP (Intraocular Pressure); K (Keratometry); LASIK (Laser-Assisted In Situ Keratomileusis); MD (Mean Deviation when used with visual field); dB (decibels); MRx (Manifest Refraction); NeoPolyDex/Erythro (Neomycin Polymyxin B Dexamethasone/Erythromycin); NFL (Nerve Fiber Layer); NPDR (Nonproliferative Diabetic Retinopathy); OCT (Optical Coherence Tomography); OD (Right Eye); OS (Left Eye); OU (Both Eyes); PDR (Proliferative Diabetic Retinopathy); PFATs (Preservative Free Artificial Tears); RK (Radial Keratotomy); RNFL (Retinal Nerve Fiber Layer); RTC (Return To Clinic); scVA (Visual Acuity Without Correction/Glasses); ERLINDA (Guyanese Interactive Threshold Algorithm); TID (Three Times Daily); UV (Ultraviolet); VA (Visual Acuity); WRx (Prescription glasses currently worn); WRx VA (Visual Acuity With Prescription Glasses); YAG (Yttrium Aluminum Remy) /hi/ PAUL TADEO MD, [facility] Communications Professor Signed: 02/20/2023 07:44 Receipt Acknowledged By: 02/20/2023 07:56 /hi/ DELL HILL COT 02/20/2023 09:29 /hi/ CARLOS MILLS MD STAFF PHYSICIAN PAUL TADEO [facility]
--- OUTSIDE RECORDS SUMMARY | 2023-08-14 09:36 | XMS_ITS | Encounter Summary ---
Author Name Department of [facility] Organization Department of [facility] Address [address] [place] [address] Support Name Relationship Address Phone BREE KHOURY Next of Kin [address] [place] [address] BREE KHOURY Emergency Contact [address] [place] [address] Insurance Providers: All historical and [...] Name Patient's Relationship to Policy Vaughn HUMANA [facility] (WNR) MEDICARE ADVANTAGE [facility] (WNR) Jul 29, 2021 [id number] KHOURY,WE SLEY PATIENT HUMANA MCR (WNR) MEDICARE ADVANTAGE [facility] (WNR) Jul 29, 2015 [id number] 97 KHOURY,WE SLEY PATIENT HUMANA MCR (WNR) MEDICARE ADVANTAGE [facility] (WNR) Jul 29, 2015 [id number] 97 KHOURY,WE SLEY PATIENT HUMANA MCR (WNR) MEDICARE ADVANTAGE [facility] (WNR) Jul 29, 2015 [id number] 97 KHOURY,WE SLEY PATIENT Selected Encounter This section includes the information on record at [place] for the Encounter. Date/Time Encounter Type Encounter Description Reason Pro vider Source Apr 18, 2023 10:01 AM Outpatient Encounter RHEUMATOLOGY/ARTHRITI S IHE Encounter Template Text not used by [facility] Plan of Treatment: Future Appointments (+ 6 months) and Future Tests (+/- 45 days) The Plan of Treatment section includes future care activities for the patient from all [place] treatmentfacilities. This section includes future appointments and future orders which are active, pending or scheduled. Future Appointments This section includes appointments that were scheduled to occur 6 months from the date of the Encounter, up to a maximum of 20 appointments. The data comes from all [place] treatment facilities. Appointment Date/Time Appointment Type Appointme nt Facility Name May 09, 2023 08:15 AM AMBULATORY - [...] 2023 02:30 PM AMBULATORY - MEDICINE [facility] Aug 27, 2023 02:00 PM AMBULATORY - NONE [place] [facility] ([facility]) Sep 05, 2023 02:00 PM AMBULATORY - MEDICINE [facility] Sep 05, 2023 03:00 PM AMBULATORY - NONE [facility] Lab Results: +/- 30 days of the [...] Range Comment May 09, 2023 08:09 AM [place] ([facility]) HEMOGLOBIN A1C Specimen Type: BLOOD Comment: Values [...] Apr 04, 2023 09:22 AM Reporting Lab: [facility] [id number] Performing Lab: [facility] [id number] HEMOGLOBIN A1C 9.1 H 4.0-6.0 Apr 09, 2023 01:47 PM [facility] C-REACTIVE PROTEIN Specimen Type: PLASMA No comment entered. Ordering Provider: DELIA FARRAR Report Released Date/Time: Feb 07, 2023 01:36 PM Reporting Lab: [facility] [id number] Performing Lab: [facility] [address] C-REACTIVE PROTEIN 1.13 <5.00 Apr 09, 2023 01:47 PM [facility] SED RATE Specimen Type: BLOOD No comment entered. Ordering Provider: DELIA FARRAR Report Released Date/Time: Feb 07, 2023 01:36 PM Reporting Lab: [facility] [id number] Performing Lab: [facility] [id number] SED RATE 9 5-15 Apr 09, 2023 01:47 PM [facility] CBC & DIFF Specimen Type: BLOOD Comment: Automated Differential Performed Ordering Provider: DELIA FARRAR Report Released Date/Time: Feb 07, 2023 01:36 PM Reporting Lab: [facility] [id number] Performing Lab: [facility] [id number] WBC 10.25 4.0-11.0 RBC 5.04 4.6-6.2 HGB [...] 2.8 0-10 Apr 09, 2023 01:47 PM [place] [facility] HEMOGLOBIN A1C Specimen Type: BLOOD Comment: [...] Mar 14, 2023 08:31 AM Reporting Lab: [facility] [id number] Performing Lab: [facility] [address] HEMOGLOBIN A1C 9.7 H 4.0-6.0 Encounter Notes: All associated encounter notes This section contains the clinical notes associated to the Encounter. Date/Time Encounter Note(s) Provider Source May 02, 2023 09:24 AM ADDENDUM: LOCAL TITLE: Addendum STANDARD TITLE: ADDENDUM DATE OF NOTE: MAY 02, 2023@09:24:48 ENTRY DATE: MAY 02, 2023@09:24:50 AUTHOR: MICHELINE PAGE EXP COSIGNER: URGENCY: STATUS: COMPLETED spoke with patient, appointment changed to [facility] CVT RHEUMATOLOGY Jul 25, 2023@14:15 CENTRAL Room [address] [place] [address] [id number] /hi/ MICHELINE Dale [facility] [employer] Signed: 05/02/2023 09:25 Receipt Acknowledged By: 05/02/2023 10:29 /es/ MANJU RIGGINS LPN 05/02/2023 14:07 /es/ [place] AMSA --- Original Document --- 04/18/23 APPOINTMENT SCHEDULING NOTE: Return to clinic / follow up order needs clarification or adjustment Order needing clarification Return to [facility] on or around ( Jul 16, 2023 )for a total of 1 appointment(s)Prerequisites: Labs (NON-FASTING)Labs in [place] a few days prior Activity:04/17/2023 Other: FREDRICK- WILL THE FOLLOWING WORK FOR CLINIC AND 07/18 AT 1500- 1530? /hi/ RUSS [place] Signed: 04/18/2023 10:05 Receipt Acknowledged By: 04/18/2023 16:10 /hi/ MANJU RIGGINS LPN 04/19/2023 08:26 /hi/ MICHELINE Dale [employer] 04/19/2023 ADDENDUM STATUS: COMPLETED spoke with patient following appointments made [facility] BLOOD DRAW Jul 11, 2023@10:15 CENTRAL [facility] CVT RHEUMATOLOGY Jul 18, 2023@14:45 CENTRAL Room [address] [facility] [phone] /hi/ MICHELINE Dale [employer] Signed: 04/19/2023 08:25 Receipt Acknowledged By: 04/19/2023 10:49 /debby [place]ARD[place] 04/30/2023 ADDENDUM STATUS: COMPLETED [facility]- [facility]ERS CLINIC WAS CANCEL ON PRIOR SCHEDULED DATE. WILL 07/25 AT 1430 WORK INSTEAD. THANK YOU /debby BEARDEN Signed: 04/30/2023 10:45 Receipt Acknowledged By: 05/02/2023 10:30 /hi/ MANJU RIGGINS LPN 05/02/2023 09:26 /hi/ MICHELINE Dale TerascalaMICHELINE [facility] Apr 30, 2023 10:44 AM ADDENDUM: LOCAL TITLE: Addendum STANDARD TITLE: ADDENDUM DATE OF NOTE: APR 30, 2023@10:44:49 ENTRY DATE: APR 30, 2023@10:44:50 AUTHOR: [place] EXP COSIGNER: URGENCY: STATUS: COMPLETED [facility]- [facility]ERS CLINIC WAS CANCEL ON PRIOR SCHEDULED DATE. WILL 07/25 AT 1430 WORK INSTEAD. THANK YOU /debby BEARDEN Signed: 04/30/2023 10:45 Receipt Acknowledged By: 05/02/2023 10:30 /es/ MANJU RIGGINS LPN 05/02/2023 09:26 /es/ MICHELINE Dale [employer] --- Original Document --- 04/18/23 APPOINTMENT SCHEDULING NOTE: Return to clinic / follow up order needs clarification or adjustment Order needing clarification Return to [facility] CVT [place] [address] on or around ( Jul 16, 2023 )for a total of 1 appointment(s)Prerequisites: Labs (NON-FASTING)Labs in [place] a few days prior Activity:04/17/2023 Other: [facility]RICK- WILL THE FOLLOWING WORK FOR CLINIC AND 07/18 AT 1500- 1530? /es/ RUSS BEARDEN Signed: 04/18/2023 10:05 Receipt Acknowledged By: 04/18/2023 16:10 /es/ MANJU RIGGINS LPN 04/19/2023 08:26 /es/ MICHELINEC[employer] 04/19/2023 ADDENDUM STATUS: COMPLETED spoke with patient following appointments made [facility] BLOOD DRAW Jul 11, 2023@10:15 CENTRAL [facility] CVT RHEUMATOLOGY Jul 18, 2023@14:45 CENTRAL Room 118 [facility] [id number] /es/ MICHELINE M [employer] TECH Signed: 04/19/2023 08:25 Receipt Acknowledged By: 04/19/2023 10:49 /hi/ R[facility] HILLS [facility] 05/02/2023 ADDENDUM STATUS: COMPLETED spoke with patient, appointment changed to [facility] CVT RHEUMATOLOGY Jul 25, 2023@14:15 CENTRAL Room [address] [place] [id number] /es/ MICHELINE M [employer] TECH Signed: 05/02/2023 09:25 Receipt Acknowledged By: 05/02/2023 10:29 /es/ MANJU RIGGINS LPN * AWAITING SIGNATURE * [place] DAWN J [facility] Apr 19, 2023 08:24 AM ADDENDUM: LOCAL TITLE: Addendum STANDARD TITLE: ADDENDUM DATE OF NOTE: APR 19, 2023@08:24:23 ENTRY DATE: APR 19, 2023@08:24:24 AUTHOR: MICHELINE PAGE EXP COSIGNER: URGENCY: STATUS: COMPLETED spoke with patient following appointments made [facility] BLOOD DRAW Jul 11, 2023@10:15 CENTRAL [facility] CVT RHEUMATOLOGY Jul 18, 2023@14:45 CENTRAL Room [address] [place] [id number] /hi/ MICHELINE Dale [employer] Signed: 04/19/2023 08:25 Receipt Acknowledged By: 04/19/2023 10:49 /es/ RUSS BEARDEN --- Original Document --- 04/18/23 APPOINTMENT SCHEDULING NOTE: Return to clinic / follow up order needs clarification or adjustment Order needing clarification Return to [facility] CVT RHEUM [place] 693 on or around ( Jul 16, 2023 )for a total of 1 appointment(s)Prerequisites: Labs (NON-FASTING)Labs in [place] a few days prior Activity:04/17/2023 Other: FREDRICK- WILL THE FOLLOWING WORK FOR CLINIC AND 07/18 AT 1500- 1530? /hi/ [place] AMSErwin Signed: 04/18/2023 10:05 Receipt Acknowledged By: 04/18/2023 16:10 /es/ MANJU RIGGINS KEG INSPECTOR 04/19/2023 08:26 /hi/ MICHELINE Dale [employer] MICHELINE PAGE [facility] Apr 18, 2023 10:01 AM REPORT OF CONTACT: LOCAL TITLE: APPOINTMENT SCHEDULING NOTE STANDARD TITLE: REPORT OF CONTACT DATE OF NOTE: APR 18, 2023@10:01 ENTRY DATE: APR 18, 2023@10:01:55 AUTHOR: [place] EXP COSIGNER: URGENCY: STATUS: COMPLETED APPOINTMENT SCHEDULING NOTE Has ADDENDA Return to clinic / follow up order needs clarification or adjustment Order needing clarification Return to [facility] CVT RHEUM [place] 693 on or around ( Jul 16, 2023 )for a total of 1 appointment(s)Prerequisites: Labs (NON-FASTING)Labs in [place] a few days prior Activity:04/17/2023 Other: [facility]ICK- WILL THE FOLLOWING WORK FOR CLINIC AND 07/18 AT 1500- 1530? /hi/ RUSS [place]ARDEN Signed: 04/18/2023 10:05 Receipt Acknowledged By: 04/18/2023 16:10 /hi/ MANJU RIGGINS LPN 04/19/2023 08:26 /es/ MICHELINE [employer] 04/19/2023 ADDENDUM STATUS: COMPLETED spoke with patient following appointments made [facility] BLOOD DRAW Jul 11, 2023@10:15 CENTRAL [facility] CVT RHEUMATOLOGY Jul 18, 2023@14:45 CENTRAL Room 118 [facility] [id number] /es/ [employer] Signed: 04/19/2023 08:25 Receipt Acknowledged By: 04/19/2023 10:49 /hi/ RUSS BEARDEN 04/30/2023 ADDENDUM STATUS: COMPLETED [facility]- [facility] WAS CANCEL ON PRIOR SCHEDULED DATE. WILL 07/25 AT 1430 WORK INSTEAD. THANK YOU /hi/ RUSS BEARDEN Signed: 04/30/2023 10:45 Receipt Acknowledged By: * AWAITING SIGNATURE * MANJU RIGGINS 05/02/2023 09:26 /hi/ MICHELINE Dale [employer] 05/02/2023 ADDENDUM STATUS: COMPLETED spoke with patient, appointment changed to [facility] CVT RHEUMATOLOGY Jul 25, 2023@14:15 CENTRAL Room 118 [place] [phone] /es/ MICHELINECafe Press Signed: 05/02/2023 09:25 Receipt Acknowledged By: * AWAITING SIGNATURE * MANJU RIGGINS * AWAITING SIGNATURE * R[place]S DAWN J [facility]
--- OUTSIDE RECORDS SUMMARY | 2023-08-14 09:36 | XMS_ITS | Encounter Summary ---
Author Name [facility] of [facility] Organization [facility] of [facility] Address [address] [place] [address] Support Name Relationship Address Phone BREE KHOURY Next of Kin [address] [place] [address] BREE KHOURY Emergency Contact [address] [place] [address] Insurance Providers: All historical and [...] Policy Vaughn HUMANA [facility] (WNR) MEDICARE ADVANTAGE [facility] (WNR) Jul 29, 2021 [id number] 97 KHOURY,WE SLEY PATIENT HUMANA [facility] (WNR) MEDICARE ADVANTAGE [facility] (WNR) Jul 29, 2015 [id number] 97 KHOURY,WE SLEY PATIENT HUMANA [facility] (WNR) MEDICARE ADVANTAGE [facility] (WNR) Jul 29, 2015 [id number] 97 KHOURY,WE SLEY PATIENT HUMANA [facility] (WNR) MEDICARE ADVANTAGE [facility] (WNR) Jul 29, 2015 [id number] 97 KHOURY,WE SLEY PATIENT Selected Encounter This section includes the information on record at [place] for the Encounter. Date/Time Encounter Type Encounter Description Reason Provider Source Feb 19, 2023 08:00 AM IMG RTA DETCJ/MNTR DS STAFF OPHTHALMOLOGY ICD-10-CM Z01.01 Encounter for exam of eyes and vision w abnormal findings [facility] [place] Encounter Template Text not used by [facility] Assessments - Encounter Diagnoses This section includes the primary and secondary diagnoses documented for the Encounter. Date/Time Primary/Secondary Diagnosis Diagnosis Name Provider Source Feb 19, 2023 08:28 AM PRIMARY Encounter for exam of eyes and vision w abnormal findings [facility] ([facility]) Plan of Treatment: Future Appointments (+ 6 months) and Future Tests (+/- 45 days) The Plan of Treatment section includes future care activities for the patient from all [place] treatmentfacilities. This section includes future appointments and [...] 04, 2023 02:30 PM AMBULATORY - MEDICINE [facility] Mar 12, 2023 11:30 AM AMBULATORY - [...] 25, 2023 02:30 PM AMBULATORY - MEDICINE [facility] Lab Results: +/- 30 days of the [...] Range Comment Feb 07, 2023 01:52 PM [facility] SED RATE Specimen Type: BLOOD No comment entered. Ordering Provider: DELIA FARRAR Report Released Date/Time: Feb 07, 2023 01:36 PM Reporting Lab: [facility] [id number] Performing Lab: [facility] [id number] SED RATE 10 5-15 Feb 07, 2023 01:52 PM [facility] C-REACTIVE PROTEIN Specimen Type: PLASMA No comment entered. Ordering Provider: DELIA FARRAR Report Released Date/Time: Feb 07, 2023 01:36 PM Reporting Lab: [facility] [id number] Performing Lab: [facility] [id number] C-REACTIVE PROTEIN 2.95 See_Comment Social History: Smoking Status (Most current) and [...] took place. Date/Time Current Smoking Status Comment Albaro ity Jul 12, 2022 09:45 AM VA-TOBACCO FORMER USER [place] ([facility]) Tobacco Use History This section includes a history of the smoking, or tobacco-related health factors, that were collected on or before the date of the Encounter. The data comes from the [place] facility where the Encounter took place. Date/Time Smoking Status/Tobacco Use Comment F acility Jul 12, 2022 09:45 AM VA-TOBACCO QUIT 5 TO < 15 YRS [place] ([facility]) Jul 13, 2021 09:15 AM VA-TOBACCO FORMER USER [place] ([facility]) Jul 13, 2021 09:15 AM VA-TOBACCO QUIT 5 TO < 15 YRS [place] ([facility]) Jun 28, 2020 09:15 AM VA-TOBACCO FORMER USER [place] ([facility]) Jun 28, 2020 09:15 AM VA-TOBACCO QUIT 5 TO < 15 YRS [place] ([facility]) Mar 23, 2019 03:20 PM VA-TOBACCO FORMER USER [place] ([facility]) Mar 23, 2019 03:20 PM VA-TOBACCO QUIT 5 TO < 15 YRS [place] ([facility]) Apr 01, 2018 02:59 PM VA-TOBACCO FORMER USER [place] ([facility]) Apr 01, 2018 02:59 PM VA-TOBACCO QUIT 5 TO < 15 YRS [place] ([facility]) Jun 28, 2017 01:51 PM FORMER TOBACCO USER 7Y OR GREATE R [facility] ([facility]) Jun 29, 2016 08:43 AM FORMER TOBACCO USE >1Y <7Y [place] ([facility]) Encounter Notes: All associated encounter notes This section contains the clinical notes associated to the Encounter. Date/Time Encounter Note(s) Provider Source Feb 19, 2023 08:01 AM TELEHEALTH NOTE: LOCAL TITLE: EYE TECS CHOPPED STRAND OPERATOR STANDARD TITLE: TELEHEALTH NOTE DATE OF NOTE: FEB 19, 2023@08:01 ENTRY DATE: FEB 19, 2023@08:01:57 AUTHOR: [place] [facility] COSIGNER: URGENCY: STATUS: COMPLETED [facility] Lithographic Artist Note LUIS KHOURY [id number] Telehealth Consent and Patient Identification Verification: Verified patient identity with 2 separate identifiers prior to the beginning of the visit: Yes Patient was informed that their information and images will be uploaded securely to the [place] computer system and sent to be remotely [...] 1 year Borderline Glaucoma follow up in [facility], also diabetic. Denies any concerns. [place] states he is on Prednisone and A1c are unstable. Telehealth: Telehealth explained to . understands that exam will be reviewed in the next three business days by an eye doctor and the patient will receive either a phone call or a letter. Dilation: Side- effects/risks/benefits of dilating drops reviewed. stated understanding and consented to dilation; dilation warning sheet given; mydriatic glasses recommended and dispensed. Last Eye Exam: 1-2 years ago Location of last eye exam: [facility] Type of eye exam: [facility] HISTORY & REVIEW OF SYSTEMS No pain, decreased vision, sudden change in flashes or floaters, or sudden onset double vision. Glare symptoms - OU for 2 Years or more Night driving difficulty DIABETES HISTORY: The patient has diabetes Duration of Diabetes: More than 10 years The patient is on insulin EYE DISEASE(S) HISTORY: [facility] Lithographic Artist 02/16/2022 [facility] EYE DX-CATARACTS Additional Eye Disease Information: Glaucoma: Glaucoma Suspect - OU C/D OD>OS EYE PROCEDURE(S) HISTORY: 02/16/2022 [facility] EYE PROCEDURE-NONE TRAUMA HISTORY: H/O Foreign Body - OS [place] poked eye, several years ago FAMILY HISTORY GLAUCOMA: Mother SOCIAL HISTORY: 02/16/2022 [facility] Tobacco Hx-No Quit EYE MEDICATION(S): No Current Eye Medications REFRACTION AND VISION: Wearing Rx (WRx): OD: -0.50 +1.25 x010 Add 2.50 OS: -1.75 +2.50 x165 Add 2.50 [place] is happy with current eyeglasses Current Style: [...] Glauc Tech 02/16/2023 [facility] Refrac-Final Mrx Od -0.50+1.33s286 ADD:+2.50 [facility] Refrac-Final Mrx Os -1.75+2.54a967 ADD:+2.50 Additional MRx Information: Final MRx: OD: -0.50 +1.50 x010 Add 2.50 OS: -1.50 +2.50 x163 Add 2.50 K Readings: K1 OD 46.50@109 K2 OD 47.00@019 K1 OS 45.25@056 K2 OS 45.75@146 Rx Comments: No glasses today, 01/2022, vision stable. PACHYMETRY: Pachymetry Past Results: [...] C:D (Cup-to-Disc); CIC (Care In The Community); PRODUCT TRANSFER PUMPER (Cyclophotocoagulation); CSME (Clinically Significant Macular Edema); DFE [...] MRx (Manifest Refraction); NeoPolyDex/Erythro (Neomycin Polymyxin B Dexamethasone/Erythromycin ); NFL (Nerve Fiber Layer); NPDR (Nonproliferative Diabetic Retinopathy); OCT (Optical Coherence Tomography); OD (Right Eye); OS (Left Eye); OU (Both Eyes); PDR (Proliferative Diabetic Retinopathy); PFATs (Preservative Free Artificial Tears); RK (Radial Keratotomy); RNFL (Retinal Nerve Fiber Layer); RTC (Return To Clinic); scVA (Visual Acuity Without Correction/Glasses); ERLINDA ([place] Interactive Threshold Algorithm); TID (Three Times Daily); UV (Ultraviolet); VA (Visual Acuity); WRx (Prescription glasses currently worn); WRx VA (Visual Acuity With Prescription Glasses); YAG (Yttrium Aluminum Boody) /hi/ [facility] COT Signed: 02/19/2023 08:28 [facility] ([facility])
--- OUTSIDE RECORDS SUMMARY | 2023-08-14 09:36 | XMS_ITS | Encounter Summary ---
Author Name [facility] Organization [facility] Address [address] [place] [address] Support Name Relationship Address Phone BREE KHOURY Next of Kin [address] [place] [address] BREE KHOURY Emergency Contact [address] [place] [address] Insurance Providers: All historical and [...] HUMANA MCR (WNR) MEDICARE ADVANTAGE [facility] (R) Jul 29, 2021 [id number] KHOURY,WE SLEY PATIENT [employer]NA MCR (WNR) MEDICARE ADVANTAGE [facility] (WNR) Jul 29, 2015 [id number] 97 KHOURY,WE SLEY PATIENT [employer] MCR (WNR) MEDICARE ADVANTAGE [facility] (WNR) Jul 29, 2015 [id number] 97 KHOURY,WE SLEY PATIENT [employer] MCR (WNR) MEDICARE ADVANTAGE [facility] (WNR) Jul 29, 2015 [id number] 97 KHOURY,WE SLEY PATIENT Selected Encounter This section includes the information on record at MD for the Encounter. Date/Time Encounter Type Encounter Description Reason Provider Source Apr 04, 2023 08:45 AM MTMS BY PHARM ADDL 15 MIN CLINICAL PHARMACY ICD-10-CM E10.40 Type 1 diabetes mellitus with diabetic neuropathy, unsp HELEN AYON Encounter Template Text not used by [facility] Assessments - Encounter Diagnoses This section includes the primary and secondary diagnoses documented for the Encounter. Date/Time Primary/Secondary Diagnosis Diagnosis Name Provider Source Apr 04, 2023 02:35 PM PRIMARY Type 1 diabetes mellitus with diabetic neuropathy, unsp HELEN AYON ([facility]) Plan of Treatment: Future Appointments (+ 6 months) and Future Tests (+/- 45 days) The Plan of Treatment section includes future care activities for the patient from all MD treatmentfacilities. This section includes future appointments and future orders which are active, pending or scheduled. Future Appointments This section includes appointments that were scheduled to occur 6 months from the date of the Encounter, up to a maximum of 20 appointments. The data comes from all MD treatment facilities. Appointment Date/Time Appointment Type Appointme nt Facility Name Apr 09, 2023 01:45 PM AMBULATORY - [...] 25, 2023 02:30 PM [facility] Aug 27, 2023 02:00 PM AMBULATORY - NONE [place] [facility] ([facility]) Sep 05, 2023 02:00 PM AM[facility] Sep 05, 2023 03:00 PM AMBULATORY - NONE [facility] Lab Results: +/- 30 days of the encounter This section includes the Chemistry and Hematology Lab Results on record with MD for the patient. Radiology Reports and Pathology Reports are provided separately, in subsequent sections. Lab Results This section contains the Chemistry/Hematology Results that were resulted 30 days before or 30 daysafter the date of the Encounter. Date/Time Source Result Type Result - Unit Interpretation Reference Range Comment Apr 09, 2023 01:47 PM [facility] C-REACTIVE PROTEIN Specimen Type: PLASMA No comment entered. Ordering Provider: DELIA FARRAR Report Released Date/Time: Feb 07, 2023 01:36 PM Reporting Lab: [facility] [id number] Performing Lab: [facility] [id number] C-REACTIVE PROTEIN 1.13 <5.00 Apr 09, 2023 01:47 PM [facility] SED RATE Specimen Type: BLOOD No comment entered. Ordering Provider: DELIA FARRAR Report Released Date/Time: Feb 07, 2023 01:36 PM Reporting Lab: [facility] [id number] Performing Lab: [facility] [id number] SED RATE 9 5-15 Apr 09, 2023 01:47 PM [facility] CBC & DIFF Specimen Type: BLOOD Comment: Automated Differential Performed Ordering Provider: DELIA FARRAR Report Released Date/Time: Feb 07, 2023 01:36 PM Reporting Lab: [facility] [id number] Performing Lab: [facility] [id number] WBC 10.25 4.0-11.0 RBC 5.04 4.6-6.2 HGB [...] 2.8 0-10 Apr 09, 2023 01:47 PM [place] [facility]) HEMOGLOBIN A1C Specimen Type: BLOOD Comment: [...] Mar 14, 2023 08:31 AM Reporting Lab: [facility] [phone] Performing Lab: [facility] [id number] HEMOGLOBIN A1C 9.7 H 4.0-6.0 Social History: Smoking Status (Most current) and Tobacco Use (All prior to encounter date) This section includes the most current, and the historical, smoking and tobacco- related health factors from the MD facility where the Encounter took place. Current Smoking Status This section includes the most current smoking, or tobacco-related health factor, from the MD facility where the Encounter took place. Date/Time Current Smoking Status Comment Facil ity Jul 12, 2022 09:45 AM VA-TOBACCO QUIT 5 TO < 15 YRS [place] ([facility]) Tobacco Use History This section includes a history of the smoking, or tobacco-related health factors, that were collected on or before the date of the Encounter. The data comes from the MD facility where the Encounter took place. Date/Time Smoking Status/Tobacco Use Comment F acility Jul 12, 2022 09:45 AM VA-TOBACCO QUIT 5 TO < 15 YRS [place] ([facility]) Jul 13, 2021 09:15 AM VA-TOBACCO FORMER USER [place] ([facility]) Jul 13, 2021 09:15 AM VA-TOBACCO QUIT 5 TO < 15 YRS [place] ([facility]) Jun 28, 2020 09:15 AM VA-TOBACCO FORMER USER [place] ([facility]) Jun 28, 2020 09:15 AM VA-TOBACCO QUIT 5 TO < 15 YRS [place] ([facility]) Mar 23, 2019 03:20 PM VA-TOBACCO FORMER USER [place] ([facility]) Mar 23, 2019 03:20 PM VA-TOBACCO QUIT 5 TO < 15 YRS [place] ([facility]) Apr 01, 2018 02:59 PM VA-TOBACCO FORMER USER [place] ([facility]) Apr 01, 2018 02:59 PM VA-TOBACCO QUIT 5 TO < 15 YRS [place] ([facility]) Jun 28, 2017 01:51 PM FORMER TOBACCO USER 7Y OR GREATE R [place] ([facility]) Jun 29, 2016 08:43 AM FORMER TOBACCO USE >1Y <7Y [place] ([facility]) Encounter Notes: All associated encounter notes This section contains the clinical notes associated to the Encounter. Date/Time Encounter Note(s) Provider Source Apr 04, 2023 07:33 AM PHARMACY NOTE: LOCAL TITLE: PHARMACOTHERAPY-CLINICAL PHARMACY NOTE STANDARD TITLE: PHARMACY NOTE DATE OF NOTE: APR 04, 2023@07:33 ENTRY DATE: APR 04, 2023@07:33:20 AUTHOR: CHARLIE MILTON EXP COSIGNER: HELEN AYON URGENCY: STATUS: COMPLETED PHARMACOTHERAPY-CLINICAL PHARMACY NOTE Has ADDENDA Visit Type: In-Clinic LUIS KHOURY is a 78 YO followed by [facility] for Type 1 diabetes medication management. SUBJECTIVE: reports things have been going well. Has been golfing a few times a week. Had trouble with sensors falling off so has been checking his own blood sugars via finger stick. Has not received new sensors yet. Still taking prednisone. Lifestyle: Diet: hasn't changed Exercise: is golfing 4 times a week ROS: (-) hypoglycemia symptoms (-) hyperglycemia symptoms SMBG Readings: DATE AM NOON PM BEDTIME 04/04 125 9/6 198 223 96 9/5 93 222 178 9/4 74 210 335 /3 132 191 230 9/2 134 137 156 03/29 169 184 179 03/28 149 170 244 03/27 110 155 252 03/26 208 167 269 03/25 233 289 162 03/24 281 223 88 03/23 73 297 247 03/22 245 158 330 03/21 190 208 AVG 160.9 202 212.4 MIN 73 137 88 MAX 281 297 335 Side effects: none Adherence to medications: no missed doses OBJECTIVE: ALLERGIES/ADR: WELLBUTRIN (Jun 29, [...] DAY FOR 30 DAYS FOR POLYMYALGIA RHEUMATICA Vitals: Temperature: 96.8 F [36.0 C] (03/04/2023 13:43) Blood Pressure: 135/66 (03/04/2023 13:43) Pulse: 71 (03/04/2023 13:43) Respiration: 17 (03/04/2023 13:43) Pain: 0 (03/04/2023 13:43) Height: 67.5 in [171.5 cm] [...] GFR(eGF >60 Ref: >=60 CHOLESTEROL 118 (10/22/22) MEASURED LDL____ LDL CALCULATION 67 (10/22/22) HDL 30 L (10/22/22) TRIGLYCERIDE____ Collection DT Spec HGBA1C POCA1C 01/01/2023 15:37 BLOOD 8.6 H 09/04/2022 11:46 BLOOD 9.5 H 07/12/2022 11:02 BLOOD 9.1 H Collection DT Specimen Test Name Result Units Ref Range 07/12/2022 11:05 URINE ALB/CREAT RATIO,U 22.7 mg/g creat Ref: <=29.9 07/13/2021 10:03 URINE !! ALB/CREAT RATIO,U can mg/g creat Ref: <=29.9 07/05/2020 09:11 URINE !! ALB/CREAT RATIO,U can mg/g creat Ref: <=29.9 !! Indicates COMMENTS AVAILABLE...Refer to Interim Lab Report. SGOT 18 (09/04/22) SGPT 17 (09/04/22) TSH ____ Collection DT Spec WBC HGB HCT PLT MCV 12/11/2022 11:53 BLOOD 8.52 12.3 L 39.4 L 499 H 81.2 10/01/2022 09:41 BLOOD 9.32 13.3 L 42.3 484 H 83.3 09/04/2022 11:46 BLOOD 7.80 14.8 44.9 355 82.8 ASSESSMENT/PLAN: #DM -Goal A1c <8% (FBG 80-160, PPG <210) d/t age, CAD, and neuropathy per VA/DoD guidelines A1c slightly above goal. SMBGs vary throughout the day with a couple readings in the low 70s, no clear pattern. No symptoms of hypoglycemia. With still taking prednisone, will not make any adjustments at this time. Has upcoming appointment with rheumatology. Discussed switching Libre2 to Dexcom 7 due to trouble with adhesion. Redford would prefer to try using the skin prep wipe/tape first and if issues continue, will look into switching meters at that time. - NO medication changes made #Disease-Specific Med Rec: Completed today #Labs: A1c on May 09 - Educated vet on indication/risks/benefits of new/changed medication. - Education provided on therapeutic nonpharmacologic management to achieve goals. - Vet advised of recent labs. - Redford verbalized understanding to all plans discussed today. Questions were answered to vet's satisfaction. Time spent: 30 minutes RTC: May 09 @ 8:45 am for in clinic visit /debby MILTON bilingual student tutor Signed: 04/04/2023 13:39 /debby AYON PHARMD, [facility] CLINICAL SAP BI DEVELOPER Cosigned: 04/04/2023 14:35 04/04/2023 ADDENDUM STATUS: COMPLETED In room supervision Agree with trainee note with comments below. Nature of encounter: with T1DM seen for follow up of diabetes management. Clinical thinking, assessment and treatment plan: Variable BG readings, no updated personal CGM data available d/t CGM sensors not adhering. Some larger difference in bedtime to AM readings somewhat concerning for overnight hypoglycemia. Discussed methods to help sensor adherence, ideally get CGM back up and running prior to making changes in insulin. Counseled to contact Madeline if having faulty sensors or ongoing adhesion issues for replacement sensors. /debby AYON PHARMD, [facility] [place] CLINICAL SAP BI DEVELOPER Signed: 04/04/2023 14:39 CHARLIE MILTON ([facility])
--- OUTSIDE RECORDS SUMMARY | 2023-08-14 09:36 | XMS_ITS | Encounter Summary ---
Author Name [facility] Organization [facility] Address [address] [place] [address] Support Name Relationship Address Phone BREE KHOURY Next of Kin [address] [place] [address] BREE KHOURY Emergency Contact [address] [place] [address] Insurance Providers: All historical and [...] Name Patient's Relationship to Policy Vaughn HUMANA [facility] (WNR) MEDICARE ADVANTAGE [facility] (WNR) Jul 29, 2021 [id number] KHOURY,WE SLEY PATIENT [employer] MCR (WNR) MEDICARE ADVANTAGE [facility] (WNR) Jul 29, 2015 [id number] KHOURY,WE SLEY PATIENT [employer] MCR (WNR) MEDICARE ADVANTAGE [facility] (WNR) Jul 29, 2015 [id number] 97 KHOURY,WE SLEY PATIENT [employer] MCR (WNR) MEDICARE ADVANTAGE [facility] (WNR) Jul 29, 2015 [id number] 97 KHOURY,WE JASY PATIENT Selected Encounter This section includes the information on record at [place] for the Encounter. Date/Time Encounter Type Encounter Description Reason Provider Source Feb 18, 2023 11:00 AM INJ PERFLUTREN LIP MICROS,ML CARDIAC ECHO ICD-10-CM I25.5 Ischemic cardiomyopathy ELSY KELLY Encounter Template Text not used by [place] Assessments - Encounter Diagnoses This section includes the primary and secondary diagnoses documented for the Encounter. Date/Time Primary/Secondary Diagnosis Diagnosis Name Provider Source Feb 18, 2023 11:42 AM PRIMARY Ischemic cardiomyopathy [facility] Plan of Treatment: Future Appointments (+ 6 months) and Future Tests (+/- 45 days) The Plan of Treatment section includes future care activities for the patient from all [place] treatmentcapital medical centerities. This section includes future appointments and future orders which are active, pending or scheduled. Future Appointments This section includes appointments that were scheduled to occur 6 months from the date of the Encounter, up to a maximum of 20 appointments. The data comes from all [place] treatment facilities. Appointment Date/Time Appointment Type Appointme nt Facility Name Feb 19, 2023 08:00 AM AMBULATORY - NONE [facility] ([facility]) Feb 22, 2023 01:30 PM AMBULATORY - MEDICINE [facility] ([facility]) Mar 04, 2023 02:30 PM AMBULATORY - MEDICINE [facility] Mar 12, 2023 11:30 AM AMBULATORY - [...] 25, 2023 02:30 PM AMBULATORY - MEDICINE [facility] Lab Results: +/- 30 days of the encounter This section includes the Chemistry and Hematology Lab Results on record with [place] for the patient. Radiology Reports and Pathology [...] Feb 07, 2023 01:36 PM Reporting Lab: [facility] [id number] Performing Lab: [facility] [id number] C-REACTIVE PROTEIN 2.95 See_Comment Feb 07, 2023 01:52 PM [facility] SED RATE Specimen Type: BLOOD No comment entered. Ordering Provider: DELIA FARRAR Report Released Date/Time: Feb 07, 2023 01:36 PM Reporting Lab: [facility] [id number] Performing Lab: [facility] [id number] SED RATE 10 5-15 Encounter Notes: All associated encounter notes This section contains the clinical notes associated to the Encounter. Date/Time Encounter Note(s) Provider Source Feb 19, 2023 05:23 PM CARDIOLOGY PROCEDURE NOTE: LOCAL TITLE: ECHOCARDIOGRAM PROCEDURE STANDARD TITLE: CARDIOLOGY PROCEDURE NOTE DATE OF NOTE: FEB 19, 2023@17:23:40 ENTRY DATE: FEB 19, 2023@17:23:40 AUTHOR: CLINICAL,DEVICE PRO EXP COSIGNER: URGENCY: STATUS: COMPLETED PROCEDURE SUMMARY CODE: Machine Resulted DATE/TIME PERFORMED: FEB 18, 2023@10:41:4 DOCUMENT IN [employer] [facility] SEE FULL REPORT IN VISTA IMAGING SIGNATURE NOT REQUIRED SEE SIGNATURE IN VISTA IMAGING ([facility] OUTPT) AUTO-INSTRUMENT DIAGNOSIS Procedure: M_TTE Adult Release Status: Released Off-Line Verified Date Verified: Feb 19, 2023@17:23:17 Study ID: [id number] [facility] + + [place], [place] + + [facility] [address] [address] Transthoracic Echocardiogram Report + :Name: LUIS KHOURY Study Date: 02/18/2023 Height: 67 in : : Patient Location: [facility] ECHO OUTPATIENT #[id number]: 199 lb: :: 1945 Gender: Male BSA: 2.0 m2 : :Age: 77 yrs : : Order Number: [id number] : :Reason For Study: Cardiomyopathy : + :Account Support Specialist: Claudia Trivedi RDCS : + :Referring Physician: OSMANY RIVREA : + + Interpretation Summary A complete two-dimensional transthoracic echocardiogram (13123) was performed with contrast (Q9957). Technically challenging study. 1. The left ventricle is normal in size and low normal systolic function. The visually estimated ejection fraction is 50-55%. 2. The right ventricle is normal size and systolic function is normal. 3. Normal left and right atria. 4. The aortic valve leaflets are not well visualzed. There is trivial aortic regurgitation (assessment limited by image quality). There is mild ortic stenosis with mean pressure gradient of 10 mmHG and a valve area of 1.5-2.0 cm2.. 5. There is trivial TR and no MR. 6. The inferior vena cava is normal in size, and collapses normally with respiration. Procedure A complete two-dimensional transthoracic echocardiogram (18196) was performed with contrast (Q9957). Left Ventricle The left ventricle is normal in size. The left ventricular systolic function is low normal. The visually estimated ejection fraction is 50-55%. Right Ventricle The right ventricle is normal size. The right ventricular systolic function is normal. Left Atrium/Right Atrium/Atrial Septum The left atrial size is normal. Right atrial size is normal. Mitral Valve The mitral valve leaflets are not well visualized but appear grossly normal. There is no mitral valve regurgitation noted. Tricuspid Valve Anatomically normal tricuspid valve. There is trivial tricuspid regurgitation. Aortic Valve The aortic valve leaflets are not well visualzed. There is mild ortic stenosis with mean pressure gradient of 10 mmHG and a valve area of 1.5-2.0 cm2.. Aorta The aortic root is not well visualized. Normal ascending aorta. Inferior Vena Cava/Hepatic Veins The inferior vena cava is normal in size, and collapses normally with respiration. + + :Measurements : :LVIDd: 4.4 cm(3.9-5.9 cm) LVIDs: 3.7 cm(2.0-4.0 cm) : : : : :IVSd: 0.99 cm(0.6-1.1 cm) LVPWd: 1.1 cm(0.6-1.1 cm) : : :TAPSE: 1.7 cm(>1.7) EF(Teich): 33.7 %(52-74%) : + + MMode/2D Measurements \T\ Calculations FS: 15.9 % Ao root diam: 3.9 cm EDV(Teich): 86.6 ml ESV(Teich): 57.4 ml Asc Aorta diam: 3.5 cm LVOT diam: 2.3 cm LVLd ap4: 8.3 cm LVLd ap2: 7.8 cm EDV(MOD-sp4): 166.0 ml EDV(MOD-sp2): 148.0 ml LVLs ap4: 7.7 cm LVLs ap2: 6.7 cm ESV(MOD-sp4): 87.4 ml ESV(MOD-sp2): 63.2 ml EF(MOD-sp4): 47.3 % EF (MOD-bp): 50.9 % SV(MOD-sp4): 78.6 ml LA Length: 5.5 cm RA A4Cs: 12.1 cm2 RV Base: 3.7 cm Doppler Measurements \T\ Calculations MV E max carlos: 90.6 cm/sec MV dec slope: 428.6 cm/sec2 MV A max carlos: 100.9 cm/sec MV dec time: 0.21 sec MV E/A: 0.90 Lat Peak E' Carlos: 4.0 cm/sec Ao V2 max: 203.6 cm/sec Lat E/e': 22.7 Ao max P.6 mmHg Med E/e': 19.9 Ao V2 mean: 154.8 cm/sec Med Peak E' Carlos: 4.6 cm/sec Ao mean P.1 mmHg Ao V2 VTI: 44.6 cm MICHAEL(I,D): 1.7 cm2 MICHAEL(V,D): 1.7 cm2 LV V1 max P.1 mmHg SV(LVOT): 77.0 ml LV V1 mean P.7 mmHg LV V1 max: 87.5 cm/sec LV V1 mean: 62.9 cm/sec LV V1 VTI: 19.1 cm PA V2 max: 75.1 cm/sec Dimensionless Index (DI): 0.43 PA max P.3 mmHg MICHAEL(VTI)/BSA: 0.93 RV S Carlos: 9.4 cm/sec Ratio of MV Peak Velocity to L: 22.7 Reading Physician:05:23 PM Administrative Closure: 02/19/2023 by: CLINICAL,DEVICE PROXY SERVICE CLINICAL,DEVICE PROXY SERVICE [facility] Feb 18, 2023 11:38 AM NURSING INPATIENT NOTE: LOCAL TITLE: [facility]IMBER[facility] NURSING PROGRESS NOTE STANDARD TITLE: NURSING INPATIENT NOTE DATE OF NOTE: FEB 18, 2023@11:38 ENTRY DATE: FEB 18, 2023@11:38:08 AUTHOR: GLO ALMANZA EXP COSIGNER: URGENCY: STATUS: COMPLETED SUBJECT: ECHO NOTE CONTRAINDICATIONS: Does patient have allergy or known hypersensitivity to Perflutren microspheres? No Does Patient have allergy or known hypersensitivity to polyethylene glycol (PEG) or products that contain PEG such as colonoscopy bowel preparations and laxatives? Yes Patient was given an explanation of the indications and potential side effects, patient indicates readiness to learn, verbalizes understanding and consents to procedure: Yes BASELINE VITAL SIGNS: BP:134/71 HR: 58 O2 Sats: 97% ON RA RR: 18 Pain: DENIES IV ACCESS: IV Placed Comment: 22g left wrist PIV 1.5ML ACTIVATED PERFLUTREN DILUTED IN 8.5ML OF 0.9 NS SYRINGE: Amount administered IV: 0.5MLs Time administered: 1127 ADVERSE REACTIONS: No Action Taken: Not Applicable POST STUDY VITAL SIGNS: BP:154/84 HR: 64 O2 Sats: 97% ON RA RR: 18 Pain: DENIES IV REMOVED: Yes Comment: site C/D/I /hi/ GLO ALMANZA CLEARING TUB WORKER REGISTERED NURSE Signed: 02/18/2023 11:43 GLO ALMANZA [facility]
--- OUTSIDE RECORDS SUMMARY | 2023-08-14 09:36 | XMS_ITS | Encounter Summary ---
Author Name [facility] Organization [facility] of [facility] Address [address] [place] [address] Support Name Relationship Address Phone BREE KHOURY Next of Kin [address] [place] [address] BREE KHOURY Emergency Contact [address] [place] [address] Insurance Providers: All historical and [...] Name Patient's Relationship to Policy Vaughn HUMANA [facility] (WNR) MEDICARE [facility] Jul 29, 2021 [id number] KHOURY,WE SLEY PATIENT HUMANA MCR (WNR) MEDICARE ADVANTAGE [facility] (R) Jul 29, 2015 [id number] KHOURY,WE SLEY PATIENT [employer]NA MCR (WNR) MEDICARE ADVANTAGE [facility] (WNR) Jul 29, 2015 [id number] [phone] KHOURY,WE SLEY PATIENT [employer]MANA MCR (WNR) MEDICARE ADVANTAGE [facility] (R) Jul 29, 2015 [id number] KHOURY,WE SLEY PATIENT Selected Encounter This section includes the information on record at ID for the Encounter. Date/Time Encounter Type Encounter Description Reason Provider Source Feb 22, 2023 01:30 PM Outpatient Encounter TELEPHONE PRIMARY CARE ICD-10-CM M35.3 Polymyalgia rheumatica GABRIEL CHRIS Encounter Template Text not used by [facility] Assessments - Encounter Diagnoses This section includes the primary and secondary diagnoses documented for the Encounter. Date/Time Primary/Secondary Diagnosis Diagnosis Name Provider Source Feb 22, 2023 01:30 PM PRIMARY Polymyalgia rheumatica BESSIE CHRIS ([facility]) Plan of Treatment: Future Appointments (+ 6 [...] Appointment Type Appointme nt Facility Name Mar 04, 2023 02:30 PM AMBULATORY - [...] and Hematology Lab Results on record with ID for the patient. Radiology Reports and Pathology Reports are provided separately, in subsequent sections. Lab Results This section contains the Chemistry/Hematology Results that were resulted 30 days before or 30 daysafter the date of the Encounter. Date/Time Source Result Type Result - Unit Interpretation Reference Range Comment Feb 07, 2023 01:52 PM [facility] SED RATE Specimen Type: BLOOD No comment entered. Ordering Provider: DELIA FARRAR Report Released Date/Time: Feb 07, 2023 01:36 PM Reporting Lab: [facility] [id number] Performing Lab: [facility] [id number] SED RATE 10 5-15 Feb 07, 2023 01:52 PM [facility] C-REACTIVE PROTEIN Specimen Type: PLASMA No comment entered. Ordering Provider: DELIA FARRAR Report Released Date/Time: Feb 07, 2023 01:36 PM Reporting Lab: [facility] [id number] Performing Lab: [facility] [id number] C-REACTIVE PROTEIN 2.95 See_Comment Social History: Smoking [...] 12, 2022 09:45 AM VA-TOBACCO FORMER USER [place] ([facility]) Tobacco Use History This section includes a history of the smoking, or tobacco-related health factors, that were collected on or before the date of the Encounter. The data comes from the ID facility where the Encounter took place. Date/Time Smoking Status/Tobacco Use Comment F acility Jul 12, 2022 09:45 AM VA-TOBACCO QUIT 5 TO < 15 YRS [place] ([facility]) Jul 13, 2021 09:15 AM VA-TOBACCO FORMER USER [place] ([facility]) Jul 13, 2021 09:15 AM VA-TOBACCO QUIT 5 TO < 15 YRS [place] ([facility]) Jun 28, 2020 09:15 AM VA-TOBACCO FORMER USER [place] ([facility]) Jun 28, 2020 09:15 AM VA-TOBACCO QUIT 5 TO < 15 YRS [place] ([facility]) Mar 23, 2019 03:20 PM VA-TOBACCO FORMER USER [place] ([facility]) Mar 23, 2019 03:20 PM VA-TOBACCO QUIT 5 TO < 15 YRS [place] ([facility]) Apr 01, 2018 02:59 PM VA-TOBACCO FORMER USER [place] ([facility]) Apr 01, 2018 02:59 PM VA-TOBACCO QUIT 5 TO < 15 YRS [place] ([facility]) Jun 28, 2017 01:51 PM FORMER TOBACCO USER 7Y OR GREATE R [place] ([facility]) Jun 29, 2016 08:43 AM FORMER TOBACCO USE >1Y <7Y [place] ([facility]) Encounter Notes: All associated encounter notes This section contains the clinical notes associated to the Encounter. Date/Time Encounter Note(s) Provider Source Feb 22, 2023 01:29 PM PRIMARY CARE NOTE: LOCAL TITLE: [facility] PROGRESS NOTE-[place] STANDARD TITLE: PRIMARY CARE NOTE DATE OF NOTE: FEB 22, 2023@13:29 ENTRY DATE: FEB 22, 2023@13:29:33 AUTHOR: BESSIE CHRIS COSIGNER: URGENCY: STATUS: COMPLETED TYPE OF VISIT: Nurse Clinic, Telephone REASON FOR VISIT: prednisone follow up ALLERGIES: FACILITY ALLERGY/ADR -------- No Remote Allergy/ADR Data available for this patient [facility] LISINOPRIL [facility] PIOGLITAZONE [facility] SEMAGLUTIDE [facility] WELLBUTRIN MEDICATION Active Outpatient Medications (including Supplies): ACCU-CHEK [...] DAY FOR 30 DAYS FOR POLYMYALGIA RHEUMATICA Non-VA CYCLOBENZAPRINE HCL 10MG TAB 10MG MOUTH THREE TIMES ACTIVE A DAY NEEDED Non-VA PREDNISONE 20MG TAB 20MG MOUTH DAILY ACTIVE Assessment: reports that he is feeling well. states that he has met with rheum who is managing this now and have initiated a taper. Plan: Labs after this visit. Prednisone 15 mg daily for 1 month, then 12.5 mg daily for 1 month, then 10 mg daily for 1 month. RTC 2 months [facility], sooner PRN. reports blood sugars have been high. They will run 320-350 in the evening, stating that he did hit 400 one night. [place] states that they do come down overnight. states that his right hip has been bothering him a little more lately, stating that he does lay on that side and it was the same side that was bothering him back in 2020. States he will keep an eye on this and let PCP know if it becomes concerning. to attend appointments as scheduled, with have both blood draw and rheum appts already scheduled. Phone call: 8 minutes /hi/ BESSIE CHRIS REGISTERED NURSE Signed: 02/22/2023 13:42 BESSIE CHRIS ([facility])
--- OUTSIDE RECORDS SUMMARY | 2023-08-14 09:36 | XMS_ITS | Encounter Summary ---
Author Name [facility] Organization [facility] Address [address] [place] [id number] Support Name Relationship Address Phone BREE KHOURY Next of Kin [address] [place] [address] BREE KHOURY Emergency Contact [address] [place] [address] Insurance Providers: All historical and [...] Policy Vaughn [employer]NA [facility] (WNR) MEDICARE ADVANTAGE [facility] ([facility]) Jul 29, 2021 [id number] [phone] KHOURY,WE SLEY PATIENT [employer]NA MCR (WNR) MEDICARE ADVANTAGE [facility] (WNR) Jul 29, 2015 [id number] KHOURY,WE SLEY PATIENT [employer]NA M[facility] (WNR) MEDICARE ADVANTAGE [facility] (WNR) Jul 29, 2015 [id number] 97 KHOURY,WE SLEY PATIENT [employer] MCR (WNR) MEDICARE ADVANTAGE [facility] (WNR) Jul 29, 2015 [id number] KHOURY,WE SLEY PATIENT Selected Encounter This section includes the information on record at CT for the Encounter. Date/Time Encounter Type Encounter Description Reason Provider Source Apr 17, 2023 10:00 AM OFFICE O/P EST MOD 30-39 MIN RHEUMATOLOGY/ARTH RITIS ICD-10-CM M35.3 Polymyalgia rheumatica DELIA FARRAR Encounter Template Text not used by CT Assessments - Encounter Diagnoses This section includes the primary and secondary diagnoses documented for the Encounter. 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 This section includes future appointments and future orders which are active, pending or scheduled. Future Appointments This section includes appointments that were scheduled to occur 6 months from the date of the Encounter, up to a maximum of 20 appointments. The data comes from all CT treatment facilities. Appointment Date/Time Appointment Type Appointme [...] 25, 2023 02:30 PM AMBULATORY - MEDICINE [facility] Aug 27, 2023 02:00 PM AMBULATORY - NONE [place] [facility] ([facility]) Sep 05, 2023 02:00 PM AMBULATORY - MEDICINE [facility] Sep 05, 2023 03:00 PM AMBULATORY - NONE [facility] Lab Results: +/- 30 days of the encounter This section includes the Chemistry and Hematology Lab Results on record with CT for the patient. Radiology Reports and Pathology Reports are provided separately, in subsequent sections. Lab Results This section contains the Chemistry/Hematology Results that were resulted 30 days before or 30 daysafter the date of the Encounter. Date/Time Source Result Type Result - Unit Interpretation Reference Range Comment May 09, 2023 08:09 AM [facility] HEMOGLOBIN A1C Specimen Type: BLOOD Comment: Values [...] Apr 04, 2023 09:22 AM Reporting Lab: [facility] [id number] Performing Lab: [facility] [address] HEMOGLOBIN A1C 9.1 H 4.0-6.0 Apr 09, 2023 01:47 PM [facility] C-REACTIVE PROTEIN Specimen Type: PLASMA No comment entered. Ordering Provider: DELIA FARRAR Report Released Date/Time: Feb 07, 2023 01:36 PM Reporting Lab: [facility] [id number] Performing Lab: [facility] [address] C-REACTIVE PROTEIN 1.13 <5.00 Apr 09, 2023 01:47 PM [facility] SED RATE Specimen Type: BLOOD No comment entered. Ordering Provider: DELIA FARRAR Report Released Date/Time: Feb 07, 2023 01:36 PM Reporting Lab: [facility] [id number] Performing Lab: [facility] [id number] SED RATE 9 5-15 Apr 09, 2023 01:47 PM [facility] CBC & DIFF Specimen Type: BLOOD Comment: Automated Differential Performed Ordering Provider: DELIA FARRAR Report Released Date/Time: Feb 07, 2023 01:36 PM Reporting Lab: [facility] [id number] Performing Lab: [facility] [id number] WBC 10.25 4.0-11.0 RBC 5.04 4.6-6.2 HGB [...] 2.8 0-10 Apr 09, 2023 01:47 PM [place] ([facility]) HEMOGLOBIN A1C Specimen Type: [...] Mar 14, 2023 08:31 AM Reporting Lab: [facility] [phone] Performing Lab: [facility] [phone] HEMOGLOBIN A1C 9.7 H 4.0-6.0 Vital Signs: All taken on the encounter date This section contains inpatient and outpatient Vital Signs collected on the date of the Encounter. Date/Time Temperature Pulse Blood Pressure Respiratory Rate SP02 Pain Height Weight Body Mass Index Source Apr 17, 2023 10:07 AM 161/80 mm[Hg] [facility] ([facility]) Apr 17, 2023 10:02 AM 96.7 F 64 /min 167/87 mm[Hg] 16 /min 97 % 2 211.5 lb 33 [facility] ([facility]) Social History: Smoking Status (Most current) and Tobacco Use (All prior to encounter date) This section includes the most current, and the historical, smoking and tobacco- related health factors from the CT facility where the Encounter took place. Current Smoking Status This section includes the most current smoking, or tobacco-related health factor, from the CT facility where the Encounter took place. Date/Time Current Smoking Status Comment Facil ity Jul 12, 2022 09:45 AM VA-TOBACCO FORMER USER [place] ([facility]) Tobacco Use History This section includes a history of the smoking, or tobacco-related health factors, that were collected on or before the date of the Encounter. The data comes from the CT facility where the Encounter took place. Date/Time Smoking Status/Tobacco Use Comment F acility Jul 12, 2022 09:45 AM VA-TOBACCO QUIT 5 TO < 15 YRS [place] ([facility]) Jul 13, 2021 09:15 AM VA-TOBACCO FORMER USER [place] ([facility]) Jul 13, 2021 09:15 AM VA-TOBACCO QUIT 5 TO < 15 YRS [place] ([facility]) Jun 28, 2020 09:15 AM VA-TOBACCO FORMER USER [place] ([facility]) Jun 28, 2020 09:15 AM VA-TOBACCO QUIT 5 TO < 15 YRS [place] ([facility]) Mar 23, 2019 03:20 PM VA-TOBACCO FORMER USER [place] ([facility]) Mar 23, 2019 03:20 PM VA-TOBACCO QUIT 5 TO < 15 YRS [place] ([facility]) Apr 01, 2018 02:59 PM VA-TOBACCO FORMER USER [place] ([facility]) Apr 01, 2018 02:59 PM VA-TOBACCO QUIT 5 TO < 15 YRS [place] ([facility]) Jun 28, 2017 01:51 PM FORMER TOBACCO USER 7Y OR GREATE R [facility] ([facility]) Jun 29, 2016 08:43 AM FORMER TOBACCO USE >1Y <7Y [place] ([facility]) Encounter Notes: All associated encounter notes This section contains the clinical notes associated to the Encounter. Date/Time Encounter Note(s) Provider Source Apr 17, 2023 10:10 AM RHEUMATOLOGY ATTEN DING NOTE: LOCAL TITLE: RHEUMATOLOGY CLINIC NOTE STANDARD TITLE: RHEUMATOLOGY ATTENDING NOTE DATE OF NOTE: APR 17, 2023@10:10 ENTRY DATE: APR 17, 2023@10:10:57 AUTHOR: TAMRA FARRAR COSIGNER: URGENCY: STATUS: COMPLETED CC: F/U PMR Last seen 12/2022 History of present illness: This is a 78 year old MALE who returns to rheumatology clinic today for follow up of PMR. He was seen in primary care initially 12/2022 and PMR suspected so he was started on prednisone. Review from previous rheum notes: Pt notes that 07/12 [place] the [place]. Usually he can walk 3 laps without difficulty, but that day he went 2 laps and had to stop because of hip pain and swelling in feet. Eventually he has bilateral shoulder and hand pain as well. By July, he couldn't even make one lap. 08/2022 he had UT and needed to have stents placed. During [...] any illnesses prior to onset of symptoms. Interval history: Pt doing pretty well overall. He is [...] has been golfing several times per week. He denies any LY, vision changes, f/c, diplopia, jaw claudication. His weight and BS readings have been more elevated in the past few weeks. Working with his clinic manager for him. Currently the patient is taking prednisone 10mg daily (started 04/12/2023). No SEs from prednisone. ROS: General: Denies fevers, chills. No unexplained weight changes. Denies excessive fatigue. CV: No angina. Respiratory: No dyspnea. Denies cough. GI: No abdominal pain, nausea, melena/hematochezia. Has diarrhea most days that he attributes to his pills (not worse with prednisone). Skin: Denies rashes. 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 - Coronary Artery Disease ([facility] [id number]) CHF - Congestive Heart Failure (SCT 4234Aortic valve stenosis ([facility] [id number]) Type 1 diabetes mellitus ([facility] [id number]) Anemia ([facility] [id number]) Polymyalgia rheumatica ([facility] [id number]) Social Hx: Marital status: Allergies: WELLBUTRIN (Jun [...] 1 SENSOR ACTIVE EVERY 14 DAYS 9) INSULIN,ASPART(EQV-NOVLG)10 0UN/ML FLXPEN INJECT 12 ACTIVE UNITS UNDER THE SKIN THREE TIMES A DAY WITH MEALS FOR DIABETES - SKIP DOSE IF NOT EATING PLUS 1 ADDITIONAL UNIT FOR EVERY 50 OVER 150. MAX OF 16 UNITS PER DOSE 10) INSULIN,GLARGINE-YFGN 100UNIT/ML PEN 3ML INJECT 50 ACTIVE [...] DAY FOR 30 DAYS FOR POLYMYALGIA RHEUMATICA 18) SKIN BARRIER FILM 3ML 3M#3345 APPLY PREP TOPICALLY HOLD EVERY 2 WEEKS FOR CGM PLACEMENT 19) SKIN PREP WIPE, S&N #[id number] USE 1 WIPE TOPICALLY ACTIVE NEEDED REPLACES SKIN BARRIER FILM DUE TO BACKORDER Physical Examination: VS: Temp: 96.7 F [35.9 C] (04/17/2023 10:02) BP: 161/80 (04/17/2023 10:07) Pulse:64 (04/17/2023 10:02) Resp: 16 (04/17/2023 10:02) Weight: 211.5 lb [95.93 kg] (04/17/2023 10:02) BMI: 32.7 Pain: 2 (04/17/2023 10:02) O2 Sat: 97% (04/17/2023 10:02) GENERAL: NAD. HEENT: Normal conjunctiva. SKIN: No rash noted. No nail pitting. MSK: No synovitis or tender joints on exam. Patient able to make full fists bilaterally. Pt able to stand without using his arms. Joint Exam: Swelling (S), Tenderness (T) Acromioclav Right:S0 T0 Left:S0 T0 Glenohumeral Right:S0 T0 Left:S0 T0 Elbow Right:S0 T0 Left:S0 T0 Wrist Right:S0 T0 Left:S0 T0 MCP Right:S0 T0 Left:S0 T0 PIP Right:S0 T0 Left:S0 T0 DIP Right:S0 T0 Left:S0 T0 Knee Right:SO T0 Left:S0 T0 Tibiotalar Right:S0 T0 Left:S0 T0 Subtalar Right:S0 T0 Left:S0 T0 Tarsals Right:S0 T0 Left:S0 T0 Metatarsals Right:S0 T0 Left:S0 T0 Toe IP Right:S0 T0 Left:S0 T0 Airflight Attendants Supervisor Strength: Right: 11/30 Left: 11/30 LABORATORY DATA: WBC 10.25 (04/09/23) HGB 13.7 (04/09/23) PLT 308 (04/09/23) CREATININE 0.8 (10/01/22) SGOT 18 (09/04/22) SGPT 17 (09/04/22) ALK PHOSPHATASE 108 (09/04/22) WESTERGREN 9 (04/09/23) C-REACTIVE PROTEIN 1.13 (04/09/23) Imaging: No new today. Assessment/Plan: 1. PMR Comment: This does seem to be the most likely diagnosis, but could also be an evolving seronegative inflammatory arthritis. Rheumatoid factor and CCP are negative. He did have a mildly positive REJI, but ISABEL was negative. CRP and ESR and normal, hgl has returned to normal. Pt currently on prednisone 10mg daily. He hasn't noticed any changes with taper. Has some stiffness in hands all day and intermittent right hip pain, but these are his baseline for the past 2-3 years. No shoulder or left hip pain as he had when he was first diagnosed. No synovitis or tender joints on exam. AM stiffness for just a few minutes. He has been able to golf several rounds per week. He has no psoriasis history. Xrays read as possible marginal erosive change, but no clear erosions. If erosions are present in DIP joints, this would be most consistent with PsA or erosive DJD. He has responded very well to prednisone, so will continue to taper down on prednisone. The patient is diabetic, and his blood sugar levels have increased on prednisone. Not necessarily corrlating with dose of prednisone as the BS readings have increased recently despite prednisone dose decreasing. He is working with his PACT pharmacist on this. Discussed signs and symptoms of GCA and discussed with the patient. Patient asked to contact the clinic or present to the emergency room immediately if these present. At this time he has no of symptoms consistent with GCA. Discussed calcium intake while on prednisone. Plan: Complete one month of prednisone 10 mg daily, then he will titrate down by 1mg per month. RTC CVT 3 months with labs prior, sooner PRN. All lab results were available and discussed with the patient during the clinic appointment. /hi/ TAMRA FARRAR NP NURSE PRACTITIONER Signed: 04/17/2023 10:48 TAMRA FARRAR [place] ([facility]) Apr 17, 2023 10:05 AM INTERNAL MEDICINE OUTPATIENT NOTE: LOCAL TITLE: MEDICINE CLINIC NURSING NOTE STANDARD TITLE: INTERNAL MEDICINE OUTPATIENT NOTE DATE OF NOTE: APR 17, 2023@10:05 ENTRY DATE: APR 17, 2023@10:05:05 AUTHOR: RANDA GARCÍA EXP COSIGNER: URGENCY: STATUS: COMPLETED TYPE OF VISIT: Appointment Check In Type of appointment: In-person appointment REASON FOR VISIT: Rheumatology visit ALLERGIES: WELLBUTRIN (Jun 29, 2016) LISINOPRIL (Sep 25, 2018) PIOGLITAZONE (Feb 17, 2019) SEMAGLUTIDE (Jan 10, 2022) VITAL SIGNS: Blood Pressure: 167/87 (04/17/2023 10:02) 161/80 Pulse: 64 (04/17/2023 10:02) Respiration: 16 (04/17/2023 10:02) Temperature: 96.7 F [35.9 C] (04/17/2023 10:02) Weight: 211.5 lb [95.93 kg] (04/17/2023 10:02) Height: 67.5 in [171.5 cm] (01/01/2023 14:40) BMI: 32.7 O2 Sat: 97% (04/17/2023 10:02) Pain: 2 (04/17/2023 10:02) PAIN SCREEN: Patient is not having significant [...] USE 1 SENSOR EVERY 14 ACTIVE DAYS INSULIN,ASPART(EQV-NOVLG)10 0UN/ML FLXPEN INJECT 12 UNITS ACTIVE UNDER THE SKIN THREE TIMES A DAY WITH MEALS FOR DIABETES - SKIP DOSE IF NOT EATING PLUS 1 ADDITIONAL UNIT FOR EVERY 50 OVER 150. MAX OF 16 UNITS PER DOSE INSULIN,GLARGINE-YFGN 100UNIT/ML PEN 3ML INJECT 50 UNITS ACTIVE UNDER THE SKIN AT BEDTIME FOR DIABETES [...] DAY FOR 30 DAYS FOR POLYMYALGIA RHEUMATICA SKIN BARRIER FILM 3ML 3M#3345 APPLY PREP TOPICALLY EVERY 2 HOLD WEEKS FOR CGM PLACEMENT SKIN PREP WIPE, S&N #[id number] USE 1 WIPE TOPICALLY NEEDED ACTIVE REPLACES SKIN BARRIER FILM DUE TO BACKORDER Over the Counter/Herbal Medications: The patient denies taking any outside medications or herbals. /hi/ RANDA GARCÍA LPN LICENSED PRACTICAL NURSE Signed: 04/17/2023 10:07 RANDA GARCÍA ([facility])
--- OUTSIDE RECORDS SUMMARY | 2023-08-14 09:37 | XMS_ITS | Encounter Summary ---
Author Name Department of [facility] Organization Department of [facility] Address [address] [place] [address] Support Name Relationship Address Phone BREE KHOURY Next of Kin [address] [place] [address] BREE KHOURY Emergency Contact [address] [place] [address] Insurance Providers: All historical and [...] Policy Vaughn HU[employer] MCR (WNR) MEDICARE ADVANTAGE [facility] (R) Jul 29, 2021 [id number] [phone] KHOURY,WE SLEY PATIENT [employer] MCR (WNR) MEDICARE ADVANTAGE [facility] (WNR) Jul 29, 2015 [id number] KHOURY,WE SLEY PATIENT [employer] MCR (WNR) MEDICARE ADVANTAGE [facility] (WNR) Jul 29, 2015 [id number] [phone] KHOURY,WE SLEY PATIENT [employer] MCR (WNR) MEDICARE ADVANTAGE [facility] (WNR) Jul 29, 2015 [id number] KHOURY,WE SLEY PATIENT Selected Encounter This section includes the information on record at ME for the Encounter. Date/Time Encounter Type Encounter Description Reason Provider Source Jan 01, 2023 02:00 PM [facility] BY [facility]ARM [facility] 15 MIN CLINICAL PHARMACY ICD-10-CM E10.40 Type 1 diabetes mellitus with diabetic neuropathy, unsp HELEN AYON Encounter Template Text not used by [facility] Assessments - Encounter Diagnoses This section includes the primary and secondary diagnoses documented for the Encounter. Date/Time Primary/Secondary Diagnosis Diagnosis Name Provider Source Jan 01, 2023 02:41 PM PRIMARY Type 1 diabetes mellitus with diabetic neuropathy, unsp HELEN AYON ([facility]) Plan of Treatment: Future Appointments (+ 6 months) and Future Tests (+/- 45 days) The Plan of Treatment section includes future care activities for the patient from all [place] treatmentfacilities. This section includes future appointments and future orders which are active, pending or scheduled. Future Appointments This section includes appointments that were scheduled to occur 6 months from the date of the Encounter, up to a maximum of 20 appointments. The data comes from all [place] treatment facilities. Appointment Date/Time Appointment Type Appointme nt Facility Name Jan 09, 2023 11:30 AM [facility]ORY - MEDICINE [facility] ([facility]) Jan 16, 2023 10:00 AM [facility]ORY - MEDICINE [facility] ([facility]) Feb 05, 2023 10:00 AM AMBULATORY - NONE [facility] ([facility]) Feb 07, 2023 01:00 PM AMBULATORY - MEDICINE [facility] Feb 07, 2023 02:15 PM AMBULATORY - MEDICINE [facility] Feb 18, 2023 11:00 AM AMBULATORY - MEDICINE [facility] Feb 19, 2023 08:00 AM AMBULATORY - NONE [facility] ([facility]) Feb 22, 2023 01:30 PM [facility]ATORY - MEDICINE [facility] ([facility]) Mar 04, 2023 02:30 PM AMBULATORY - MEDICINE [facility] Mar 12, 2023 11:30 AM AMBULATORY - [...] Result - Unit Interpretation Reference Range Comment Jan 09, 2023 12:17 PM [facility] ([facility]) SED RATE Specimen Type: BLOOD No comment entered. Ordering Provider: ADITYA AGUILAR Report Released Date/Time: Jan 09, 2023 12:11 PM Reporting Lab: [facility] [phone] Performing Lab: [facility] [phone] SED RATE 20 H 5-15 Jan 09, 2023 12:17 PM [facility] ([facility]) C-REACTIVE PROTEIN Specimen Type: PLASMA No comment entered. Ordering Provider: ADITYA AGUILAR Report Released Date/Time: Jan 09, 2023 12:11 PM Reporting Lab: [facility] [phone] Performing Lab: [facility] [phone] C-REACTIVE PROTEIN 0.88 See_Comment Jan 01, 2023 03:37 PM [facility] ([facility]) HEMOGLOBIN A1C Specimen Type: BLOOD Comment: Values obtained from A1C measurements can vary. For typical A1C assays, a reported value of 7.0 could actually be between 6.7 and 7.3 if measured by a reference method. A reported value of 9.0 could actually be between 8.7 and 9.3. Ref: http://www.ngs p.org/CAPdata. asp Ordering Provider: ADITYA AGUILAR Report Released Date/Time: Jan 01, 2023 03:34 PM Reporting Lab: [facility] [phone] Performing Lab: [facility] [phone] HEMOGLOBIN A1C 8.6 H 4.0-6.0 December 11, 2022 11:53 AM [facility] ([facility]) QI WITH REFLEX TO ISABEL/DNA Specimen Type: SERUM No comment entered. Ordering Provider: ANURAG MADDOX Report Released Date/Time: December 11, 2022 11:49 AM Reporting Lab: [facility] [phone] Performing Lab: [facility] [phone] .ANTINUCLEAR ANDREW SPECKLED POSITIVE See_Comment .REJI TITER 1:160 See_Comment December 11, 2022 11:53 AM [facility] ([facility]) URIC ACID Specimen Type: PLASMA No comment entered. Ordering Provider: ANURAG MADDOX Report Released Date/Time: December 11, 2022 11:49 AM Reporting Lab: [facility] [phone] Performing Lab: [facility] [phone] URIC ACID 2.9 L 3.5-7.2 December 11, 2022 11:53 AM [facility] ([facility]) RHEUMATOID FACTOR Specimen Type: SERUM No comment entered. Ordering Provider: ANURAG MADDOX Report Released Date/Time: December 11, 2022 11:49 AM Reporting Lab: [facility] [phone] Performing Lab: [facility] [phone] RHEUMATOID FACTOR <13 <29 December 11, 2022 11:53 AM [facility] ([facility]) ANTI-CCP Specimen Type: PLASMA No comment entered. Ordering Provider: ANURAG MADDOX Report Released Date/Time: December 11, 2022 11:49 AM Reporting Lab: [facility] [phone] Performing Lab: [facility] [phone] ANTI-CCP 0.6 <4.9 December 11, 2022 11:53 AM [facility] ([facility]) SED RATE Specimen Type: BLOOD No comment entered. Ordering Provider: ANURAG MADDOX Report Released Date/Time: December 11, 2022 11:49 AM Reporting Lab: [facility] [phone] Performing Lab: [facility] [phone] SED RATE 38 H 5-15 December 11, 2022 11:53 AM [facility] ([facility]) C-REACTIVE PROTEIN Specimen Type: PLASMA No comment entered. Ordering Provider: ANURAG MADDOX Report Released Date/Time: December 11, 2022 11:49 AM Reporting Lab: [facility] [phone] Performing Lab: [facility] [phone] C-REACTIVE PROTEIN 18.30 H <5.00 December 11, 2022 11:53 AM [facility] ([facility]) CBC Specimen Type: BLOOD No comment entered. Ordering Provider: ANURAG MADDOX Report Released Date/Time: December 11, 2022 11:49 AM Reporting Lab: [facility] [phone] Performing Lab: [facility] [phone] WBC 8.52 4.0-11.0 RBC 4.85 4.6-6.2 HGB 12.3 L 13.5-17.9 HCT 39.4 L 41-54 MCV 81.2 80-100 MCH 25.4 L 27-33 MCHC 31.2 L 32.0-37.5 PLT 499 H 150-400 MPV 9.1 7.4-10.4 RDW 15.4 H 11.5-14.5 December 11, 2022 11:53 AM [facility] ([facility]) ANTI-ISABEL PANEL([employer]) Specimen Type: SERUM Comment: QI WITH REFLEX TO ISABEL/DNA: IM [id number] 110 Reference Range: < 1.0 NEG AI Reference Range: < 1.0 NEG AI Reference Range: < 1.0 NEG AI Reference Range: < 1.0 NEG AI Reference Range: < 1.0 NEG AI Reference Range: < 1.0 NEG AI Test Performed by [facility], [facility], [address] [place] [address] [place] M.D., Ph.D., Director of Laboratories , [facility] [id number] Ordering Provider: ANURAG MADDOX Report Released Date/Time: December 12, 2022 02:23 PM Reporting Lab: [facility] [phone] Performing Lab: [address] ANTI-TADEO <1.0 ANTI-CONTRACT FORESTER <1.0 ANTI-SSA/RO <1.0 ANTI-SSB/LA <1.0 ANTI-SCL-70 <1.0 ANTI-TAY-1 <1.0 December 11, 2022 11:53 AM [facility] ([facility]) B 12 Specimen Type: SERUM Comment: Specimen received is PLASMA. Ordering Provider: ANURAG MADDOX Report Released Date/Time: December 12, 2022 07:59 AM Reporting Lab: [facility] [phone] Performing Lab: [facility] [phone] B 12 916 H 213-816 December 11, 2022 11:53 AM [facility] ([facility]) FOLATE Specimen Type: SERUM Comment: Specimen received is PLASMA. Ordering Provider: ANURAG MADDOX Report Released Date/Time: December 12, 2022 07:59 AM Reporting Lab: [facility] [phone] Performing Lab: [facility] [phone] FOLATE 9.2 >7.0 December 11, 2022 11:53 AM [facility] ([facility]) IRON GROUP Specimen Type: SERUM Comment: Specimen received is PLASMA. Ordering Provider: ANURAG MADDOX Report Released Date/Time: December 12, 2022 07:59 AM Reporting Lab: [facility] [phone] Performing Lab: [facility] [phone] IRON 30 L 65-175 TIBC,CALCULAT ED 264 250-425 FERRITIN 189.5 21.8-274.7 IRON SATURATION 11 L 20-50 TRANSFERRIN 211 163-382 Vital Signs: All taken on the encounter date This section contains inpatient and outpatient Vital Signs collected on the date of the Encounter. Date/Time Temperature Pulse Blood Pressure Respiratory Rate SP02 Pain Height Weight Body Mass Index Source Jan 01, 2023 02:44 PM 124/71 mm[Hg] [facility] ([facility]) Jan 01, 2023 02:40 PM 98.1 F 74 /min 149/77 mm[Hg] 16 /min 95 % 5 67.5 in 189.5 lb 29 [facility] ([facility]) Social History: Smoking Status (Most current) and Tobacco Use (All prior to encounter date) This section includes the most current, and the historical, smoking and tobacco- related health factors from the ME facility where the Encounter took place. Current Smoking Status This section includes the most current smoking, or tobacco-related health factor, from the ME facility where the Encounter took place. Date/Time Current Smoking Status Comment Facil ity Jul 12, 2022 09:45 AM ME-TOBACCO FORMER USER [facility] ([facility]) Tobacco Use History This section includes a history of the smoking, or tobacco-related health factors, that were collected on or before the date of the Encounter. The data comes from the ME facility where the Encounter took place. Date/Time Smoking Status/Tobacco Use Comment F acility Jul 12, 2022 09:45 AM ME-TOBACCO QUIT 5 TO < 15 YRS [facility] ([facility]) Jul 13, 2021 09:15 AM [facility]-TOBACCO FORMER USER [facility] ([facility]) Jul 13, 2021 09:15 AM VA-TOBACCO QUIT 5 TO < 15 YRS [facility] ([facility]) Jun 28, 2020 09:15 AM VA-TOBACCO FORMER USER [facility] ([facility]) Jun 28, 2020 09:15 AM VA-TOBACCO QUIT 5 TO < 15 YRS [facility] ([facility]) Mar 23, 2019 03:20 PM VA-TOBACCO FORMER USER [facility] ([facility]) Mar 23, 2019 03:20 PM VA-TOBACCO QUIT 5 TO < 15 YRS [facility] ([facility]) Apr 01, 2018 02:59 PM VA-TOBACCO FORMER USER [facility] ([facility]) Apr 01, 2018 02:59 PM VA-TOBACCO QUIT 5 TO < 15 YRS [facility] ([facility]) Jun 28, 2017 01:51 PM FORMER TOBACCO USER 7Y OR GREATE R [facility] ([facility]) Jun 29, 2016 08:43 AM FORMER TOBACCO USE >1Y <7Y [facility] ([facility]) Radiology Reports: +/- 30 days of the [...] the Encounter. The data comes from all [place] treatment facilities. Date/Time Radiology Report Provider Source December 11, 2022 12:01 PM HAND RIGHT 3 VIEWS OR MORE: LUIS KHOURY [id number] -1945 [facility] Date: DECEMBER 11, 2022@12:01 Req Phys: ANURAG MADDOX Pat Loc: [facility] (Req'g Loc) Img Loc: [facility] Service: Unknown (Case [id number] COMPLETE) HAND RIGHT 3 VIEWS OR MORE (RAD Detailed) CPT:30065 Proc Modifiers : RIGHT Reason for Study: pain in both hands Clinical History: IS NOT under investigation for COVID-19 or is COVID-19 negative has had pain in both hands and worse today with significant swelling in right hand/wrist and forearm this morning. the swelling has improved a lot after applying ice. still has a lot of pain. Responsible provider name and phone number to notify for critical findings if other than user placing the order and pager listed below: User placing orders pager: LAST CREATININE [phone] (10/01/22) Report Status: Verified Date Reported: DECEMBER 11, 2022 Date Verified: DECEMBER 11, 2022 Rag Grader E-Sig:/ES/ADDIE PARMAR DO Report: EXAMINATION: HAND RIGHT 3 VIEWS OR MORE, HAND LEFT 3 VIEWS OR MORE 12/11/2022 12:01 PM INDICATION: pain in both hands COMPARISON: No comparison Impression: Right hand: No acute fracture or dislocation. No suspicious bone lesion. Narrowing of several interphalangeal joints. Possible marginal erosive change at several interphalangeal joints, most notable at the DIP joint of the third digit. Left hand: No acute fracture or dislocation. No suspicious bone lesion. Mild narrowing of a few interphalangeal joints. Likely subchondral cyst in the base of the middle phalanx of the third digit. No definite erosive changes. Primary Interpreting Staff: ADDIE PARMAR DO, RADIOLOGIST (Rag Grader) /DDS ADDIE PARMAR [facility] December 11, 2022 12:01 PM HAND LEFT 3 VIEWS OR MORE: LUIS KHOURY [id number] -1945 M Exm Date: DECEMBER 11, 2022@12:01 Req Phys: ANURAG MADDOX Pat Loc: [facility] (Req'g Loc) Img Loc: [facility] Service: Unknown (Case [id number] COMPLETE) HAND LEFT 3 VIEWS OR MORE (RAD Detailed) CPT:26416 Proc Modifiers : LEFT Reason for Study: b/l hands pain Clinical History: IS NOT under investigation for COVID-19 or is COVID-19 negative has had pain in both hands and worse today with significant swelling in right hand/wrist and forearm this morning. the swelling has improved a lot after applying ice. still has a lot of pain. Responsible provider name and phone number to notify for critical findings if other than user placing the order and pager listed below: User placing orders pager: LAST CREATININE [phone] (10/01/22) Report Status: Verified Date Reported: DECEMBER 11, 2022 Date Verified: DECEMBER 11, 2022 Rag Grader E-Sig:/ES/ADDIE PARMAR DO Report: EXAMINATION: HAND RIGHT 3 VIEWS OR MORE, HAND LEFT 3 VIEWS OR MORE 12/11/2022 12:01 PM INDICATION: pain in both hands COMPARISON: No comparison Impression: Right hand: No acute fracture or dislocation. No suspicious bone lesion. Narrowing of several interphalangeal joints. Possible marginal erosive change at several interphalangeal joints, most notable at the DIP joint of the third digit. Left hand: No acute fracture or dislocation. No suspicious bone lesion. Mild narrowing of a few interphalangeal joints. Likely subchondral cyst in the base of the middle phalanx of the third digit. No definite erosive changes. Primary Interpreting Staff: ADDIE PARMAR DO, RADIOLOGIST (Rag Grader) /DDS ADDIE PARMAR [facility] Encounter Notes: All associated encounter notes This section contains the clinical notes associated to the Encounter. Date/Time Encounter Note(s) Provider Source Jan 01, 2023 02:01 PM PHARMACY NOTE: LOCAL TITLE: PHARMACOTHERAPY-CLINICAL PHARMACY NOTE STANDARD TITLE: PHARMACY NOTE DATE OF NOTE: JAN 01, 2023@14:01 ENTRY DATE: JAN 01, 2023@14:01:53 AUTHOR: HELEN AYON COSIGNER: URGENCY: STATUS: COMPLETED Visit Type: In-Clinic LUIS KHOURY is a 77 YO followed by [facility] for diabetes medication management. SUBJECTIVE: shares BGs have been higher, has had some times when BGs jumped a lot higher than he anticipated they would. Had a few times in the last couple weeks when he noticed BGs were in low 100's in the early AM and drank a small amount of juice (estimate ~4 oz). Has fear of hypoglycemia. ROS: (-) hypoglycemia symptoms (-) hyperglycemia symptoms Freestyle Madeline 2 Report Summary Avg BG= 209mg/dL *above target(>180mg/dl)= 64% (28% >250mg/dL) *below target(<70mg/dl)= 0% *in target(70-180mg/dl)= 36% scans per day= 22 sensor data captured: 98% predicted A1C: 8.3% Top trends: -Glucose generally in range in the early AM and then slowly rises throughout the day Adherence to medications: denies missed doses OBJECTIVE: [...] UNDER THE SKIN AT BEDTIME FOR DIABETES Taking 45 units daily 10) LIDOCAINE 4% TOP CREAM APPLY MODERATE AMOUNT ACTIVE TOPICALLY THREE TIMES A DAY FOR PAIN 11) LOSARTAN 50MG TAB TAKE ONE TABLET BY MOUTH EVERY DAY ACTIVE FOR HEART FAILURE 12) METFORMIN HCL 1000MG TAB TAKE ONE TABLET BY MOUTH ACTIVE EVERY MORNING FOR DIABETES 13) METOPROLOL SUCCINATE 50MG SA TAB TAKE ONE TABLET BY ACTIVE MOUTH EVERY DAY FOR HEART PROTECTION 14) NITROGLYCERIN 0.4MG SL TAB DISSOLVE ONE TABLET UNDER ACTIVE THE TONGUE EVERY 5 MINUTES FOR UP TO 3 DOSES IF NEEDED FOR CHEST PAIN Active Non-VA Medications Status ======= 1) Non-VA CYCLOBENZAPRINE HCL 10MG TAB 10MG MOUTH THREE ACTIVE TIMES A DAY NEEDED 15 Total Medications Height: 67.5 in [171.5 cm] (09/04/2022 11:01) Weight: 193 lb [87.54 kg] (12/11/2022 11:28) BMI: 29.8 LABS: Basic Metabolic Panel SODIUM 140 (10/01/22) [...] 30 L (10/22/22) Collection DT Spec HGBA1C 09/04/2022 11:46 BLOOD 9.5 H 07/12/2022 11:02 BLOOD 9.1 H 07/12/2022 11:01 BLOOD 9.2 H Collection DT Specimen Test Name Result Units Ref Range 07/12/2022 11:05 URINE ALB/CREAT RATIO,U 22.7 mg/g creat Ref: <=29.9 07/13/2021 10:03 URINE !!ALB/CREAT RATIO,U canc mg/g creat Ref: <=29.9 07/05/2020 09:11 URINE !!ALB/CREAT RATIO,U canc mg/g creat Ref: <=29.9 !! Indicates COMMENTS AVAILABLE...Refer to Interim Lab Report. Diabetes Related Complications: Macrovascular: [-] Microvascular: -Retinopathy [-] -Nephropathy [-] -Neuropathy [+] ASSESSMENT/PLAN: #DM - Goal A1c <8% (FBG 80-160, PPG <210) d/t comorbidities per VA/DoD guidelines less than 7% if can achieve without hypoglycemia with BGs trending up since dose reduction of metformin IR. Reasonable to increase back to target dose of 2000mg to help with insulin sensitivity. No other insulin adjustments at this time. If having more readings in low 100's in the cigar packer, reasonable to further reduce insulin glargine. -INCREASE metformin to 1000mg twice daily -If BGs consistently <100, decrease insulin glargine to 35 units daily #Disease-Specific Med Rec: Completed today #Labs: -A1c with PCP appt today - Educated vet on indication/risks/benefits of new/changed medication. - Education provided on therapeutic nonpharmacologic management to achieve goals. - Salix verbalized understanding to all plans discussed today. Questions were answered to vet's satisfaction. Time spent: 30 minutes RTC: ~4-6 weeks /hi/ HELEN AYON PHARMTong, [facility] [place] [facility] INJECTION MOLD TECHNICIAN Signed: 01/01/2023 15:04 HELEN AYON ([facility])
--- OUTSIDE RECORDS SUMMARY | 2023-08-14 09:37 | XMS_ITS | Encounter Summary ---
Author Name [facility] Organization [facility] Affairs Address [address] [place] [id number] Support Name Relationship Address Phone BREE KHOURY Next of Kin [address] [place] [address] BREE KHOURY Emergency Contact [address] [place] [address] Insurance Providers: All historical and [...] Policy Vaughn HUMANA MCR (WNR) MEDICARE ADVANTAGE [facility] Jul 29, 2021 [id number] [phone] KHOURY,WE SLEY PATIENT HUMANA MCR (WNR) MEDICARE ADVANTAGE [facility] (WNR) Jul 29, 2015 [id number] KHOURY,WE SLEY PATIENT HUMANA MCR (WNR) MEDICARE ADVANTAGE [facility] (WNR) Jul 29, 2015 [id number] KHOURY,WE SLEY PATIENT HUMANA MCR (WNR) MEDICARE ADVANTAGE [facility] (WNR) Jul 29, 2015 [id number] KHOURY,WE SLEY PATIENT Selected Encounter This section includes the information on record at [place] for the Encounter. Date/Time Encounter Type Encounter Description Reason Provider Source Jan 01, 2023 02:30 PM OFFICE O/P EST MOD 30-39 MIN PRIMARY CARE/MEDICINE ICD-10-CM M35.3 Polymyalgia rheumatica ADITYA AGUILAR Encounter Template Text not used by MA Assessments - Encounter Diagnoses This section includes the primary and secondary diagnoses documented for the Encounter. Date/Time Primary/Secondary Diagnosis Diagnosis Name Provider Source Jan 01, 2023 04:10 PM PRIMARY Polymyalgia rheumatica ADITYA AGUILAR ([facility]) Jan 01, 2023 04:10 PM SECONDARY Athscl heart disease of [place] coronary artery w/o ang pctrs JEFFADITYA ([facility]) Jan 01, 2023 04:10 PM SECONDARY Essential (primary) hypertension ADITYA AGUILAR ([facility]) Jan 01, 2023 04:10 PM SECONDARY Heart failure, unspecified ADITYA AGUILAR ([facility]) Jan 01, 2023 04:10 PM SECONDARY Type 1 diabetes mellitus with diabetic neuropathy, unsp ADITYA AGUILAR ([facility]) Plan of Treatment: Future Appointments (+ 6 months) and Future Tests (+/- 45 days) The Plan of Treatment section includes future care activities for the patient from [facility]. This section includes future appointments and future orders which are active, pending or scheduled. Future Appointments This section includes appointments that were scheduled to occur 6 months from the date of the Encounter, up to a maximum of 20 appointments. The data comes from all [facility] facilities. Appointment Date/Time Appointment Type Appointme nt Facility Name Jan 09, 2023 11:30 AM AMBULATORY - MEDICINE [facility] ([facility]) Jan 16, 2023 10:00 AM [facility]BULATORY - MEDICINE [facility] ([facility]) Feb 05, 2023 10:00 AM AMBULATORY - NONE [facility] ([facility]) Feb 07, 2023 01:00 PM AMBULATORY - MEDICINE [facility] Feb 07, 2023 02:15 PM AMBULATORY - MEDICINE [facility] Feb 18, 2023 11:00 AM AMBULATORY - MEDICINE [facility] Feb 19, 2023 08:00 AM AMBULATORY - NONE [facility] ([facility]) Feb 22, 2023 01:30 PM AMBULATORY - MEDICINE [facility] ([facility]) Mar 04, 2023 02:30 PM AMBULATORY - MEDICINE [facility] Mar 12, 2023 11:30 AM [...] and Hematology Lab Results on record with MA for the patient. Radiology Reports and Pathology Reports are provided separately, in subsequent sections. Lab Results This section contains the Chemistry/Hematology Results that were resulted 30 days before or 30 daysafter the date of the Encounter. Date/Time Source Result Type Result - Unit Interpretation Reference Range Comment Jan 09, 2023 12:17 PM [facility] ([facility]) C-REACTIVE PROTEIN Specimen Type: PLASMA No comment entered. Ordering Provider: ADITYA AGUILAR Report Released Date/Time: Jan 09, 2023 12:11 PM Reporting Lab: [facility] [id number] Performing Lab: [facility] [phone] C-REACTIVE PROTEIN 0.88 See_Comment Jan 09, 2023 12:17 PM [facility] ([facility]) SED RATE Specimen Type: BLOOD No comment entered. Ordering Provider: ADITYA AGUILAR Report Released Date/Time: Jan 09, 2023 12:11 PM Reporting Lab: [facility] [phone] Performing Lab: [facility] [phone] SED RATE 20 H 5-15 Jan 01, 2023 03:37 PM [facility] ([facility]) HEMOGLOBIN A1C Specimen Type: BLOOD Comment: Values [...] Jan 01, 2023 03:34 PM Reporting Lab: [facility] [phone] Performing Lab: [facility] [phone] HEMOGLOBIN A1C 8.6 H 4.0-6.0 December 11, 2022 11:53 AM [facility] ([facility]) QI WITH REFLEX TO ISABEL/DNA Specimen Type: SERUM No comment entered. Ordering Provider: ANURAG RIVERA Report Released Date/Time: December 11, 2022 11:49 AM Reporting Lab: [facility] [phone] Performing Lab: [facility] [phone] .ANTINUCLEAR ANDREW SPECKLED POSITIVE Negative .REJI TITER 1:160 TITER <1:80 December 11, 2022 11:53 AM [facility] ([facility]) URIC ACID Specimen Type: PLASMA No comment entered. Ordering Provider: ANURAG RIVERA Report Released Date/Time: December 11, 2022 11:49 AM Reporting Lab: [facility] [phone] Performing Lab: [facility] [phone] URIC ACID 2.9 L 3.5-7.2 December 11, 2022 11:53 AM [facility] ([facility]) RHEUMATOID FACTOR Specimen Type: SERUM No comment entered. Ordering Provider: ANURAG RIVERA Report Released Date/Time: December 11, 2022 11:49 AM Reporting Lab: [facility] [phone] Performing Lab: [facility] [phone] RHEUMATOID FACTOR <13 <29 December 11, 2022 11:53 AM [facility] ([facility]) ANTI-CCP Specimen Type: PLASMA No comment entered. Ordering Provider: ANURAG RIVERA Report Released Date/Time: December 11, 2022 11:49 AM Reporting Lab: [facility] [phone] Performing Lab: [facility] [phone] ANTI-CCP 0.6 <4.9 December 11, 2022 11:53 AM [facility] ([facility]) SED RATE Specimen Type: BLOOD No comment entered. Ordering Provider: ANURAG RIVERA Report Released Date/Time: December 11, 2022 11:49 AM Reporting Lab: [facility] [phone] Performing Lab: [facility] [phone] SED RATE 38 H 5-15 December 11, 2022 11:53 AM [facility] ([facility]) C-REACTIVE PROTEIN Specimen Type: PLASMA No comment entered. Ordering Provider: ANURAG RIVERA Report Released Date/Time: December 11, 2022 11:49 AM Reporting Lab: [facility] [phone] Performing Lab: [facility] [phone] C-REACTIVE PROTEIN 18.30 H <5.00 December 11, 2022 11:53 AM [facility] ([facility]) CBC Specimen Type: BLOOD No comment entered. Ordering Provider: ANURAG RIVERA Report Released Date/Time: December 11, 2022 11:49 AM Reporting Lab: [facility] [phone] Performing Lab: [facility] [phone] WBC 8.52 4.0-11.0 RBC 4.85 4.6-6.2 HGB 12.3 L 13.5-17.9 HCT 39.4 L 41-54 MCV 81.2 80-100 MCH 25.4 L 27-33 MCHC 31.2 L 32.0-37.5 PLT 499 H 150-400 MPV 9.1 7.4-10.4 RDW 15.4 H 11.5-14.5 December 11, 2022 11:53 AM [facility] ([facility]) ANTI-ISABEL PANEL([facility]) Specimen Type: SERUM Comment: QI WITH REFLEX TO ISABEL/DNA: IM [id number] Reference Range: < 1.0 NEG AI Reference Range: < 1.0 NEG AI Reference Range: < 1.0 NEG AI Reference Range: < 1.0 NEG AI Reference Range: < 1.0 NEG AI Reference Range: < 1.0 NEG AI Test Performed by [facility], [address] [place] [address] [place] M.D., Ph.D., Director of Laboratories , [facility] [id number] Ordering Provider: ANURAG RIVERA Report Released Date/Time: December 12, 2022 02:23 PM Reporting Lab: [facility] [phone] Performing Lab: [address] ANTI-IZQUIERDO <1.0 ANTI-RUBBER ROLLER GRINDER <1.0 ANTI-SSA/RO <1.0 ANTI-SSB/LA <1.0 ANTI-SCL-70 <1.0 ANTI-TAY-1 <1.0 December 11, 2022 11:53 AM [facility] ([facility]) FOLATE Specimen Type: SERUM Comment: Specimen received is PLASMA. Ordering Provider: ANURAG RIVERA Report Released Date/Time: December 12, 2022 07:59 AM Reporting Lab: [facility] [phone] Performing Lab: [facility] [phone] FOLATE 9.2 >7.0 December 11, 2022 11:53 AM [facility] ([facility]) B 12 Specimen Type: SERUM Comment: Specimen received is PLASMA. Ordering Provider: ANURAG RIVERA Report Released Date/Time: December 12, 2022 07:59 AM Reporting Lab: [facility] [phone] Performing Lab: [facility] [address] B 12 916 H 213-816 December 11, 2022 11:53 AM [facility] ([facility]) IRON GROUP Specimen Type: SERUM Comment: Specimen received is PLASMA. Ordering Provider: ANURAG RIVERA Report Released Date/Time: December 12, 2022 07:59 AM Reporting Lab: [facility] [phone] Performing Lab: [facility] [phone] IRON 30 L 65-175 TIBC,CALCULAT ED 264 [...] 2023 02:44 PM 124/71 mm[Hg] [facility] ([facility]) Jan 01, 2023 02:40 PM 98.1 F 74 /min 149/77 mm[Hg] 16 /min 95 % 5 67.5 in 189.5 lb 29 [facility] ([facility]) Social History: Smoking Status (Most current) and Tobacco Use (All prior to encounter date) This section includes the most current, and the historical, smoking and tobacco- related health factors from the [place] facility where the Encounter took place. Current Smoking Status This section includes the most current smoking, or tobacco-related health factor, from the [place] facility where the Encounter took place. Date/Time Current Smoking Status Comment Facil ity Jul 12, 2022 09:45 AM VA-TOBACCO FORMER USER [facility] ([facility]) Tobacco Use History This section includes a history of the smoking, or tobacco-related health factors, that were collected on or before the date of the Encounter. The data comes from the [place] facility where the Encounter took place. Date/Time Smoking Status/Tobacco Use Comment F acility Jul 12, 2022 09:45 AM VA-TOBACCO QUIT 5 TO < 15 YRS [facility] ([facility]) Jul 13, 2021 09:15 AM VA-TOBACCO FORMER USER [facility] ([facility]) Jul 13, 2021 09:15 AM VA-TOBACCO QUIT 5 TO < 15 YRS [facility] ([facility]) Jun 28, 2020 09:15 AM VA-TOBACCO FORMER USER [facility] ([facility]) Jun 28, 2020 09:15 AM VA-TOBACCO QUIT 5 TO < 15 YRS [facility] ([facility]) Mar 23, 2019 03:20 PM VA-TOBACCO FORMER USER [facility] ([facility]) Mar 23, 2019 03:20 PM VA-TOBACCO QUIT 5 TO < 15 YRS [facility] ([facility]) Apr 01, 2018 02:59 PM VA-TOBACCO FORMER USER [facility] ([facility]) Apr 01, 2018 02:59 PM VA-TOBACCO QUIT 5 TO < 15 YRS [facility] ([facility]) Jun 28, 2017 01:51 PM FORMER TOBACCO USER 7Y OR GREATE R [facility] ([facility]) Jun 29, 2016 08:43 AM FORMER TOBACCO USE >1Y <7Y [facility] ([facility]) Radiology Reports: +/- 30 days of [...] the Encounter. The data comes from all [place] treatment facilities. Date/Time Radiology Report Provider Source December 11, 2022 12:01 PM HAND LEFT 3 VIEWS OR MORE: LUIS KHOURY [id number] -1945 M Exm Date: DECEMBER 11, 2022@12:01 Req Phys: LI,ANURAG Pat Loc: [facility] (Req'g Loc) Img Loc: [facility] Service: Unknown (Case [id number] COMPLETE) HAND LEFT 3 VIEWS OR MORE (RAD Detailed) CPT:11677 Proc Modifiers : LEFT Reason for Study: b/l hands pain Clinical History: [place] IS NOT under investigation for COVID-19 or [...] 11, 2022 Date Verified: DECEMBER 11, 2022 Director Of Collections And Archives E-Sig:/ES/ADDIE PARMAR DO Report: EXAMINATION: HAND RIGHT [...] Primary Interpreting Staff: ADDIE PARMAR DO, RADIOLOGIST (Director Of Collections And Archives) /DDS ADDIE PARMAR [facility] December 11, 2022 12:01 PM HAND RIGHT 3 VIEWS OR MORE: LUIS KHOURY VICTJ [id number] -1945 M Exm Date: DECEMBER 11, 2022@12:01 Req Phys: ANURAG RIVERA Pat Loc: [facility] (Req'g Loc) Img Loc: [facility] Service: Unknown (Case [id number] COMPLETE) HAND RIGHT 3 VIEWS OR MORE (RAD Detailed) CPT:84000 Proc Modifiers : RIGHT Reason for Study: pain in both hands Clinical History: [place] IS NOT under investigation for COVID-19 or [...] 11, 2022 Date Verified: DECEMBER 11, 2022 Director Of Collections And Archives E-Sig:/ES/ADDIE PARMAR DO Report: EXAMINATION: HAND RIGHT [...] Primary Interpreting Staff: ADDIE PARMAR DO, RADIOLOGIST (Director Of Collections And Archives) /DDS ADDIE PARMAR [facility] Encounter Notes: All associated encounter notes This section contains the clinical notes associated to the Encounter. Date/Time Encounter Note(s) Provider Source Jan 02, 2023 04:51 PM LETTERS: LOCAL TITLE: FOLLOW UP RESULTS LETTER STANDARD TITLE: LETTERS DATE OF NOTE: JAN 02, 2023@16:51 ENTRY DATE: JAN 02, 2023@16:51:43 AUTHOR: ADITYA AGUILAR EXP COSIGNER: URGENCY: STATUS: COMPLETED [facility] [address] [place] [address] Dec LUIS KHOURY [address] [facility] [id number] Dear [place]: I am writing to inform you of the results of the tests you had done at the [facility] [place]. The tests below were performed and are satisfactory unless otherwise noted. - Glycosylated Hemoglobin (good diabetic control if less than 7.0) HEMOGLOBIN A1C 8.6 H (01/01/23) (normal range is 4.0-6.0) Comments: Your hemoglobin A1c level has improved slightly but is still not at goal. We will continue to monitor your blood sugar numbers especially with the addition of the prednisone. We will need to continue to make adjustments to your medications. I will see you 01/09/2023 as planned. If you have any further questions or problems, please contact our nursing staff or me at the following number: [phone] ([place]) Sincerely, ADITYA AGUILAR MD PHYSICIAN ADITYA AGUILAR ([facility]) Jan 01, 2023 03:05 PM PRIMARY CARE NOTE: LOCAL TITLE: [facility] PROGRESS NOTE-[facility] STANDARD TITLE: PRIMARY CARE NOTE DATE OF NOTE: JAN 01, 2023@15:05 ENTRY DATE: JAN 01, 2023@09:09:36 AUTHOR: ADITYA AGUILAR EXP COSIGNER: URGENCY: STATUS: COMPLETED Type of Visit: Face to Face Reason for Visit: Follow-up diabetes and heart HPI: 77 year-old MALE here for follow-up of his diabetes and heart. Jes is normally seen with [facility] and being seen. Jes was admitted to the hospital on 09/22/2022 where he had a STEMI with coronary artery atherectomy with stent placement. Jes has been followed up Dr. Mei on 10/03/[address] Rivera on 12/11/2022 for arm swelling. Having issues with arthritis in all of his joints. He has swelling in his hands in the mornings, he is not able to pick things up. He is not sleeping well because of the pain. He will sleep for about 1 hour and will wake up. He will take a tylenol about 3 am and will get 1 1/2 to 2 hours. Having issues with hips, shoulders, arms, knees worse. is having no issues with chest pain or shortness of breath. is unable to be active as he wants to because of the joint pain. It can take him 3 to 4 hours to finish his normal morning routine. He notes that he was playing over 100 rounds of golf last year but was unable to get through 2 rounds of 9 holes of golf this year. actually has brought his golf cart back from the golf course because he is just not able to go because of his symptoms. [facility]-managed: [facility] Home medications: reviewed and updated Review of systems: otherwise negative Past Medical History: 1. Coronary artery disease 2. Congestive heart failure 3. Aortic valve stenosismild 09/2022 4. Hypertension 5. Hyperlipidemia 6. Type 1 diabetes mellitus 7. 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 Pernicious anemia 9. History of adenomatous polyp of colon 10. History of tobacco use 11. Multiple nodules of lung Past Surgical History: 1. Left inguinal hernia repair 08/2018 2. PCI with stent placement 3. Family History: 1. Father - Diabetes, Coronary artery disease, of massive OR age 70 2. Mother - dementia 3. Son - Coronary artery disease, OR Social History: 1. Marital Status: 2. Tobacco: Former smoker x55 years 3. ETOH: None 4. Illicit drugs: None 5. Employment: 6. Service: Allergies: Physical Exam: Temp: 98.1 F [36.7 C] (01/01/2023 14:40) Pulse:74 (01/01/2023 14:40) BP: 124/71 (01/01/2023 14:44) Resp: 16 (01/01/2023 14:40) O2 Sat: 95% (01/01/2023 14:40) Weight: 189.5 lb [85.96 kg] (01/01/2023 14:40) BMI: 29.3 Pain: 5 (01/01/2023 14:40) General: AAOx3, NAD, Healthy HEENT: AT/NC Unable to rise from the chair without assistance of hands, stiff movement, wide based gait, walking with a cane. No joint redness, mild hand swelling. Labs: ---- CBC & MORPH (by collection time) ---- BLOOD December 11 Oct 01 Sep 04 Jul 12 Reference 2022 2022 2022 2021 11:53 09:41 11:46 11:01 Units Ranges WBC 8.5 9.3 7.8 7.1 K/cmm 4 - 11 RBC 4.85 5.08 5.42 5.94 M/cmm 4.6 - 6.2 HGB 12.3 L 13.3 L 14.8 16.5 g/dL 13.5 - 17.9 HCT 39.4 L 42.3 44.9 50.1 % 41 - 54 MCV 81.2 83.3 82.8 84.3 fL 80 - 100 MCH 25.4 L 26.2 L 27.3 27.8 pg 27 - 33 MCHC 31.2 L 31.4 L 33.0 32.9 gm/dL 32 - 37.5 RDW 15.4 H 14.1 14.3 14.0 % 11.5 - 14.5 PLT 499 H 484 H 355 299 K/cmm 150 - 400 MPV 9.1 9.3 9.5 10.4 fL 7.4 - 10.4 ---- DIFF (by collection time) ---- BLOOD December 11 Reference 2022 11:53 Units Ranges WSR 38.0 H mm/hr 5 - 15 ---- NUC MED1 by collection time ---- SERUM B 12 FOLATE AUGUSTUS Ref range low 211 5.5 Ref range high 911 pg/mL ng/mL mcg/dL [f] December 11, 2022 11:53 916 H 9.2 ---- IRON GROUP (SERUM)(by collection time) ---- SERUM FE TIBC FE SAT TRANSFE FERR Ref range low 65 250 14 200 22 Ref range high 175 500 50 360 322 ug/dL ug/dL Percent mg/dL ng/mL [f] December 11, 2022 11:53 30 L 264 11.0 L 211 189.5 ---- LIPID GROUP (PLASMA)(by collection time) ---- PLASMA CHOL TRIG HDL LDL VLDL NONHDLC Ref range low 0 0 Ref range high 200 150 mg/dL mg/dL mg/dL mg/dL mg/dL mg/dL [g] Oct 22, 2022 13:51 118 106 30 L 67 21 88 ---- ANTINUCLEAR ANDREW PANEL(by collection time) ---- SERUM QI TITER Ref range low Negative TITER <1:40 Ref range high [d] December 11, 2022 11:53 SPECKLED-POS 1:160 ---- AUTOIMMUNE MISC.(by collection time) ---- SERUM December 11 Reference 2022 11:53 Units Ranges RF <13 IU/mL 0 - 10 ---- URINE MISC. (by collection time) ---- URINE OSMOL NA K FENA PROT/CR ALB/CR Ref range low 500 0 0 Ref range high 800 .2 30 mOsm/kg mmol/L mmol/L Percent g/gCreat mg/g creat [n] Jul 12, 2022 11:05 22.7 ---- PLASMA CHEM PROFILE (by collection time) ---- PLASMA December 11 Oct 01 Sep 04 Sep 04 Reference 2022 2022 2022 2022 11:53 09:41 11:46 11:46 Units Ranges CREAT 0.8 0.8 mg/dL .7 - 1.2 BUN 20 18 mg/dL 8 - 26 GLUCOSE 146 H 130 H 130 H mg/dL 74 - 106 SODIUM 140 139 mmol/L 136 - 145 K+ 4.0 3.8 mmol/L 3.5 - 5 CL- 103 102 mmol/L 98 - 107 CO2 28.0 25.0 mmol/L 21 - 32 ANI GAP 9 12 mmol/L 5 - 15 CALCIUM 9.3 9.6 mg/dL 8.5 - 10.1 TP 7.7 g/dL 6.4 - 8.2 ALB 4.0 g/dL 3.4 - 5 MG 1.7 1.7 mg/dL 1.8 - 2.4 TBIL 0.5 mg/dL .2 - 1 ALT 17 U/L 13 - 61 AST 18 U/L 15 - 37 ALKP 108 U/L 45 - 117 URIC A 2.9 L mg/dL 3.5 - 7.2 December 11, 2022@11:53 C-REACTIVE PROTEIN: 18.30 H mg/L Ref: <=5.00 December 11, 2022@11:53 ANTI-CCP: 0.6 U/mL Ref: <=4.9 December 11, 2022@11:53 SERUM ANTI-IZQUIERDO: <1.0 December 11, 2022@11:53 SERUM ANTI-RUBBER ROLLER GRINDER: <1.0 December 11, 2022@11:53 SERUM ANTI-SSA/RO: <1.0 December 11, 2022@11:53 SERUM ANTI-SSB/LA: <1.0 December 11, 2022@11:53 SERUM ANTI-SCL-70: <1.0 December 11, 2022@11:53 SERUM ANTI-TAY-1: <1.0 Oct 22, 2022@13:51 BNP: 105 H pg/mL Ref: <=99 Age related BNP cutoffs: <55 yrs:<100 pg/mL 55-64 yrs:<119 pg/mL 65-74 yrs:<160 pg/mL >=75 yrs:<254 pg/mL Oct 01, 2022@09:41 CREAT EGFR(CKD-EPI): >90 Ref: >=60 Sep 04, 2022@11:47 KSENIA-65 ANTIBODY: >250 H IU/mL Ref: <5 IU/mL Sep 04, 2022@11:47 C-PEPTIDE: <0.10 L ng/mL 0.80 - 3.85 Imaging Assessment/Plan: 1. Polymyalgia rheumatica - Age > 50 - Bilateral shoulder and hip pain, most big joints sore - Morning stiffness > 45 mintues - Duration > 2 weeks - Elevated CRP and ESR - Weakly positive QI - 1:160 - speckled - Negative CCP and anti-tay, anti-ssa, anti-izquierdo, anti-scl70 antibodies - Trial prednisone 15mg daily x 10 days to local pharmacy - Follow-up in 1 week. 2. Coronary artery disease/Congestive heart failure/Hypertension/Hyperlipi demia - No active chest pain issues - Continue aspirin 81 mg daily - Continue atorvastatin 80 mg daily - Continue clopidogrel 75 mg daily - Continue furosemide 40 mg daily - Continue losartan 50mg daily - Continue metoprolol succinate 50mg daily 3. Type 1 diabetes mellitus - Elevated KSENIA-65 antibody and low c-peptide - Continue insulin glargine 50 units at at bedtime - Continue insulin aspart 12 units per meal - Continue insulin aspart sliding scale 1 unit per every 50 about 250 - Continue metformin 1000 mg twice daily (increased by pharmacist) CVF - Future Appointment: 01/01/2023 14:00 [facility] 01/01/2023 14:30 [facility] 02/07/2023 13:00 [facility] RHEUM CONSULT [facility] 02/18/2023 11:00 [facility] ECHO OUTPATIENT #[id number] 02/19/2023 08:00 [facility] V23 EYE TECS SFT PT RTC in 1 week recheck CPRS chart review/chart prep: 14 minutes Time with patient: 30 minutes Chart completion: 6 minutes Clinical Reminders: Medication Reconciliation: Education Evaluations *Was medication education provided for NEW medications or CHANGES to medications? (including medication name, dose, route, reason for use, and potential side effects). No new medications or medication changes during this encounter. TERATOGENIC MED & CONTRACEPTION REVIEW (Optional)... MEDICATION RECONCILIATION List Given: An updated medication list was [...] Remote Allergy/ADR Data available for this patient [facility] LISINOPRIL [facility] PIOGLITAZONE [facility] SEMAGLUTIDE [facility] WELLBUTRIN Active and Recently Outpatient Medications (including Supplies): Issue Date Status Last Fill Active Outpatient Medications Refills Expiration 1) ACCU-CHEK GUIDE (GLUCOSE) TEST STRIP ACTIVE Issu:09-19-22 Qty: 200 for 50 days Sig: USE 1 STRIP Refills: 3 Last:09-19-22 TOPICALLY FOUR TIMES A DAY TO CHECK Expr:09-20-23 BLOOD SUGAR--USE WITHIN 3 MINUTES OF REMOVING FROM CONTAINER 2) ASPIRIN 81MG EC TAB Qty: 120 for 90 ACTIVE Issu:09-19-22 days Sig: TAKE ONE TABLET BY MOUTH Refills: 3 Last:09-19-22 EVERY DAY FOR HEART DISEASE Expr:09-20-23 3) ATORVASTATIN CALCIUM 80MG TAB Qty: 90 ACTIVE Issu:10-01-22 for 90 days Sig: TAKE ONE TABLET BY Refills: 3 Last:10-01-22 MOUTH AT BEDTIME FOR CHOLESTEROL Expr:10-02-23 4) CLOPIDOGREL BISULFATE 75MG TAB Qty: 90 ACTIVE Issu:10-01-22 for 90 days Sig: TAKE ONE TABLET BY Refills: 3 Last:10-02-22 MOUTH EVERY DAY FOR 1 YEAR AFTER STENT Expr:10-02-23 UNTIL 09/25/2023 5) CYANOCOBALAMIN 1000MCG TAB Qty: 100 for ACTIVE Issu:09-19-22 90 days Sig: TAKE ONE TABLET BY MOUTH Refills: 3 Last:09-19-22 EVERY DAY FOR B12 SUPPLEMENT Expr:09-20-23 6) DICLOFENAC NA 1% TOP GEL Qty: 200 for ACTIVE Issu:10-01-22 30 days Sig: APPLY 4 GRAMS TOPICALLY Refills: 1 Last:12-06-22 THREE TIMES A DAY NEEDED TO Expr:10-02-23 AFFECTED AREA FOR PAIN 7) FUROSEMIDE 40MG TAB Qty: 90 for 90 days ACTIVE Issu:10-01-22 Sig: TAKE ONE TABLET BY MOUTH EVERY Refills: 3 Last:10-01-22 MORNING FOR EXCESS FLUID Expr:10-02-23 8) GLUCOSE SENSOR FREESTYLE JULIO CESAR 2 Qty: 2 ACTIVE Issu:10-23-22 for 28 days Sig: USE 1 SENSOR Refills: 10 Last:12-04-22 EVERY 14 DAYS Expr:10-24-23 9) INSULIN,ASPART(EQV-NOVLG)100UN /ML FLXPEN ACTIVE Issu:12-06-22 Qty: 10 for 60 days Sig: INJECT 12 Refills: 5 Last:12-07-22 UNITS UNDER THE SKIN THREE TIMES A DAY Expr:12-07-23 WITH MEALS FOR DIABETES - SKIP DOSE IF NOT EATING PLUS 1 ADDITIONAL UNIT FOR EVERY 50 OVER 150. MAX OF 16 UNITS PER DOSE 10) INSULIN,GLARGINE-YFGN 100UNIT/ML PEN 3ML HOLD Issu:12-06-22 Qty: 15 for 90 days Sig: INJECT 50 Refills: 3 UNITS UNDER THE SKIN AT BEDTIME FOR Expr:12-07-23 DIABETES 11) LIDOCAINE 4% TOP CREAM Qty: 90 for 30 ACTIVE Issu:12-11-22 days Sig: APPLY MODERATE AMOUNT Refills: 11 Last:12-11-22 TOPICALLY THREE TIMES A DAY FOR PAIN Expr:12-12-23 12) LOSARTAN 50MG TAB Qty: 90 for 90 days ACTIVE Issu:12-06-22 Sig: TAKE ONE TABLET BY MOUTH EVERY Refills: 3 Last:12-06-22 DAY FOR HEART FAILURE Expr:12-07-23 13) METOPROLOL SUCCINATE 50MG SA TAB Qty: ACTIVE Issu:10-01-22 90 for 90 days Sig: TAKE ONE TABLET Refills: 3 Last:10-01-22 BY MOUTH EVERY DAY FOR HEART Expr:10-02-23 PROTECTION 14) NEEDLE,PEN 31G,8MM Qty: 400 for 90 days ACTIVE Issu:07-19-22 Sig: USE 1 NEEDLE UNDER THE SKIN Refills: 2 Last:10-09-22 DIRECTED FOR INSULIN INJECTIONS Expr:07-20-23 *DISPOSE OF IN A HARD-PLASTIC CONTAINER WITH A SCREW-ON LID CONTACT [facility] FOR PROPER DISPOSAL 15) NITROGLYCERIN 0.4MG SL TAB Qty: 100 for ACTIVE Issu:10-01-22 30 days Sig: DISSOLVE ONE TABLET Refills: 3 Last:10-01-22 UNDER THE TONGUE EVERY 5 MINUTES FOR Expr:10-02-23 UP TO 3 DOSES IF NEEDED FOR CHEST PAIN Issue Date Status Last Fill Pending Outpatient Medications Refills Expiration 1) METFORMIN HCL 1000MG TAB Qty: 180 Sig: PENDING TAKE ONE TABLET BY MOUTH TWICE A DAY Refills: 0 FOR DIABETES Issue Date Status Last Fill Inactive Outpatient Medications Refills Expiration 1) ACCU-CHEK GUIDE (GLUCOSE) TEST STRIP DISCONTINUED Issu:11-30-21 Qty: 200 for 50 days Sig: USE 1 STRIP Refills: 0 Last:07-27-22 TOPICALLY FOUR TIMES A DAY TO CHECK Expr:12-01-22 BLOOD SUGAR--USE WITHIN 3 MINUTES OF REMOVING FROM CONTAINER 2) ATORVASTATIN CALCIUM 40MG TAB Qty: 90 DISCONTINUED Issu:12-14-21 for 90 days Sig: TAKE ONE TABLET BY (EDIT) Last:09-27-22 MOUTH AT BEDTIME FOR CHOLESTEROL Refills: 0 Expr:12-15-22 3) EMPAGLIFLOZIN 25MG TAB Qty: 45 for 90 DISCONTINUED Issu:10-01-22 days Sig: TAKE ONE-HALF TABLET BY Refills: 0 Last:10-01-22 MOUTH EVERY DAY FOR HEART FAILURE Expr:12-30-22 4) EMPAGLIFLOZIN 25MG TAB Qty: 60 for 60 DISCONTINUED Issu:12-07-21 days Sig: TAKE ONE TABLET BY MOUTH Refills: 2 Last:07-27-22 EVERY DAY Expr:12-08-22 5) HYDROCHLOROTHIAZIDE 25MG TAB Qty: 90 DISCONTINUED Issu:09-19-22 for 90 days Sig: TAKE ONE TABLET BY Refills: 3 Last:09-19-22 MOUTH EVERY DAY FOR BLOOD PRESSURE Expr:09-20-23 6) INSULIN NPH HUMAN 100 UNIT/ML NOVOLIN N DISCONTINUED Issu:02-13-22 Qty: 5 for 90 days Sig: INJECT 30 Refills: 1 Last:05-04-22 UNITS UNDER THE SKIN EVERY MORNING AND Expr:02-14-23 INJECT 16 UNITS EVERY EVENING FOR DIABETES REFRIGERATE UNTIL OPENED 7) INSULIN REG HUMAN 100 UNIT/ML NOVOLIN R DISCONTINUED Issu:01-30-22 Qty: 5 for 90 days Sig: INJECT 22 Refills: 2 Last:05-03-22 UNITS UNDER THE SKIN EVERY MORNING AND Expr:01-31-23 INJECT 20 UNITS EVERY EVENING REFRIGERATE 8) INSULIN SYRINGE 1ML 31G 8MM Qty: 200 DISCONTINUED Issu:11-30-21 for 90 days Sig: USE 1 SYRINGE UNDER Refills: 1 Last:05-19-22 THE SKIN DIRECTED *DISPOSE OF IN A Expr:12-01-22 HARD-PLASTIC CONTAINER WITH A SCREW-ON LIDCONTACT GARBAGE HAULER FOR PROPER DISPOSAL 9) INSULIN,ASPART 100UNIT/ML PENFILL 3ML DISCONTINUED Issu:07-12-22 Qty: 5 for 90 days Sig: INJECT 6 Refills: 3 Last:07-16-22 UNITS UNDER THE SKIN EVERY MORNING AND Expr:07-13-23 INJECT 8 UNITS TWICE A DAY DIABETES INJECT IMMEDIATELY BEFORE MEAL 10) INSULIN,ASPART(EQV-NOVLG)100UN /ML FLXPEN DISCONTINUED Issu:09-04-22 Qty: 5 for 50 days Sig: INJECT 10 (EDIT) Last:12-03-22 UNITS UNDER THE SKIN THREE TIMES A DAY Refills: 4 Expr:09-05-23 WITH MEALS FOR DIABETES - SKIP DOSE IF NOT EATING 11) INSULIN,ASPART(EQV-NOVLG)100UN /ML FLXPEN DISCONTINUED Issu:08-21-22 Qty: 5 for 50 days Sig: INJECT 10 Refills: 6 Last:08-21-22 UNITS UNDER THE SKIN THREE TIMES A DAY Expr:08-22-23 WITH MEALS FOR DIABETES SKIP DOSE IF NOT EATING 12) INSULIN,ASPART(EQV-NOVLG)100UN /ML FLXPEN DISCONTINUED Issu:07-19-22 Qty: 5 for 65 days Sig: INJECT 6 (EDIT) Last:07-21-22 UNITS UNDER THE SKIN EVERY MORNING AND Refills: 1 Expr:07-20-23 INJECT 8 UNITS EVERYDAY AT NOON AND INJECT 8 UNITS EVERY EVENING FOR DIABETES 13) INSULIN,GLARGINE 100 UNT/ML 3ML SOLOSTAR DISCONTINUED Issu:10-01-22 Qty: 15 for 81 days Sig: INJECT 55 Refills: 3 Last:10-01-22 UNITS UNDER THE SKIN EVERY MORNING FOR Expr:10-02-23 DIABETES 14) INSULIN,GLARGINE 100 UNT/ML 3ML SOLOSTAR DISCONTINUED Issu:07-12-22 Qty: 15 for 90 days Sig: INJECT 40 (EDIT) Last:10-04-22 UNITS UNDER THE SKIN EVERY MORNING FOR Refills: 2 Expr:07-13-23 DIABETES 15) LOSARTAN 50MG TAB Qty: 90 for 90 days DISCONTINUED Issu:06-14-22 Sig: TAKE ONE TABLET BY MOUTH EVERY Refills: 0 Last:12-02-22 DAY Expr:06-15-23 16) METFORMIN HCL 1000MG TAB Qty: 90 for 90 DISCONTINUED Issu:09-18-22 days Sig: TAKE ONE TABLET BY MOUTH (EDIT) Last:12-23-22 EVERY MORNING FOR DIABETES Refills: 2 Expr:09-19-23 17) METFORMIN HCL 1000MG TAB Qty: 180 for DISCONTINUED Issu:07-12-22 90 days Sig: TAKE ONE TABLET BY MOUTH (EDIT) Last:08-03-22 TWO TIMES A DAY FOR DIABETES FOR Refills: 3 Expr:07-13-23 DIABETES 18) SEMAGLUTIDE 0.5MG/0.375ML INJ PEN 1.5ML DISCONTINUED Issu:11-21-21 Qty: 1 for 42 days Sig: INJECT 0.25MG Refills: 3 Last:11-22-21 UNDER THE SKIN EVERY WEEK FOR 4 WEEKS, Expr:11-22-22 THEN INJECT 0.5MG EVERY WEEK FOR DIABETES Start Date Active Non-VA Medications Refills Expiration 1) Non-VA CYCLOBENZAPRINE HCL 10MG TAB ACTIVE SiMG MOUTH THREE TIMES A DAY NEEDED 2) Non-VA PREDNISONE 5MG TAB SiMG ACTIVE MOUTH DAILY 36 Total Medications /es/ ADITYA AGUILAR MD PHYSICIAN Signed: 01/01/2023 16:13 ADITYA AGUILAR ([facility]) Jan 01, 2023 02:42 PM PRIMARY CARE NOTE: LOCAL TITLE: [facility] PROGRESS NOTE-CASTOR STANDARD TITLE: PRIMARY CARE NOTE DATE OF NOTE: JAN 01, 2023@14:42 ENTRY DATE: JAN 01, 2023@14:42:56 AUTHOR: BESSIE CHRIS COSIGNER: URGENCY: STATUS: COMPLETED TYPE OF VISIT: Appointment Check In Type of appointment: In-person appointment REASON FOR VISIT: f/u ALLERGIES: WELLBUTRIN (Jun 29, 2016) LISINOPRIL (Sep 25, 2018) PIOGLITAZONE (Feb 17, 2019) SEMAGLUTIDE (Jan 10, 2022) VITAL SIGNS: Blood Pressure: 149/77 (01/01/2023 14:40) Pulse: 74 (01/01/2023 14:40) Respiration: 16 (01/01/2023 14:40) Temperature: 98.1 F [36.7 C] (01/01/2023 14:40) Weight: 189.5 lb [85.96 kg] (01/01/2023 14:40) Height: 67.5 in [171.5 cm] (01/01/2023 14:40) BMI: 29.3 O2 Sat: 95% (01/01/2023 14:40) Pain: 5 (01/01/2023 14:40) PAIN SCREEN: Patient is not having significant [...] USE 1 SENSOR EVERY 14 ACTIVE DAYS INSULIN,ASPART(EQV-NOVLG)100UN /ML FLXPEN INJECT 12 UNITS ACTIVE UNDER THE [...] TAKE ONE TABLET BY MOUTH TWICE A PENDING DAY FOR DIABETES METOPROLOL SUCCINATE 50MG SA TAB TAKE ONE TABLET BY MOUTH ACTIVE EVERY DAY FOR HEART PROTECTION NEEDLE,PEN 31G,8MM USE 1 NEEDLE UNDER THE SKIN DIRECTED ACTIVE FOR INSULIN INJECTIONS *DISPOSE OF IN A HARD-PLASTIC CONTAINER WITH A SCREW-ON LID CONTACT [facility] FOR PROPER DISPOSAL NITROGLYCERIN 0.4MG SL TAB DISSOLVE ONE TABLET UNDER THE ACTIVE TONGUE EVERY 5 MINUTES FOR UP TO 3 DOSES IF NEEDED FOR CHEST PAIN Non-VA CYCLOBENZAPRINE HCL 10MG TAB 10MG MOUTH THREE TIMES ACTIVE A DAY NEEDED COVID-19 Immunization: Refused Pfizer Bivalent COVID-19 booster Immunization: COVID-19 (PFIZER), MRNA, LNP-S, BIVALENT, PF, 30 MCG/0.3 ML DOSE Refusal Reason: PATIENT DECISION Patient refuses all immunization(s) in the COVID-19 group Date Documented: 01/01/23 14:43 recheck BP-124/71 /es/ BESSIE CHRIS LICENSED PRACTICAL NURSE Signed: 01/01/2023 14:44 BESSIE CHRIS ([facility])
--- OUTSIDE RECORDS SUMMARY | 2023-08-14 09:37 | XMS_ITS | Encounter Summary ---
Author Name [facility] of [facility] Organization Department of [facility] Address [address] [place] [address] Support Name Relationship Address Phone BREE KHOURY Next of Kin [address] [place] [address] BREE KHOURY Emergency Contact [address] [place] [address] Insurance Providers: All historical and [...] Policy Vaughn [employer] MCR (WNR) MEDICARE ADVANTAGE [facility] (WNR) Jul 29, 2021 [id number] KHOURY,WE SLEY PATIENT [employer] M[employer] (WNR) MEDICARE ADVANTAGE [facility] (WNR) Jul 29, 2015 [id number] [phone] KHOURY,WE SLEY PATIENT [employer] MCR (WNR) MEDICARE ADVANTAGE [facility] (WNR) Jul 29, 2015 [id number] KHOURY,WE SLEY PATIENT [employer] MCR (WNR) MEDICARE ADVANTAGE [facility] (WNR) Jul 29, 2015 [id number] KHOURY,WE SLEY PATIENT Selected Encounter This section includes the information on record at MD for the Encounter. 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 Date/Time Primary/Secondary Diagnosis Diagnosis Name Provider Source Feb 05, 2023 03:54 PM PRIMARY Type 1 diabetes mellitus with [...] comes from all [facility]. Appointment Date/Time Appointment Type Appointme nt Facility Name Feb 07, 2023 01:00 PM [facility]ORY - [facility]ICINE [facility] Feb 07, 2023 02:15 PM [facility]UL[facility]ORY - MEDICINE [facility] Feb 18, 2023 11:00 AM [facility] - MEDICINE [facility] Feb 19, 2023 08:00 AM AM[facility]ORY - NONE [facility] ([facility] Feb 22, 2023 01:30 PM [facility]INE [facility] ([facility]) Mar 04, 2023 02:30 PM AMBULATORY - MEDICINE [facility] Mar 12, 2023 11:30 AM AMBULATORY - [...] 2023 02:30 PM [facility] Lab Results: +/- 30 days of the [...] Range Comment Feb 07, 2023 01:52 PM [facility] SED RATE Specimen Type: BLOOD No comment entered. Ordering Provider: DELIA FARRAR Report Released Date/Time: Feb 07, 2023 01:36 PM Reporting Lab: [facility] [id number] Performing Lab: [facility] [id number] SED RATE 10 5-15 Feb 07, 2023 01:52 PM [facility] C-REACTIVE PROTEIN Specimen Type: PLASMA No comment entered. Ordering Provider: DELIA FARRAR Report Released Date/Time: Feb 07, 2023 01:36 PM Reporting Lab: [facility] [id number] Performing Lab: [facility] [id number] C-REACTIVE PROTEIN 2.95 See_Comment Jan 09, 2023 12:17 PM [facility] ([facility]) C-REACTIVE PROTEIN Specimen Type: PLASMA No comment entered. Ordering Provider: ADITYA AGUILAR Report Released Date/Time: Jan 09, 2023 12:11 PM Reporting Lab: [facility] [id number] Performing Lab: [facility] [id number] C-REACTIVE PROTEIN 0.88 See_Comment Jan 09, 2023 12:17 PM [facility] ([facility]) SED RATE Specimen Type: BLOOD No comment entered. Ordering Provider: ADITYA AGUILAR Report Released Date/Time: Jan 09, 2023 12:11 PM Reporting Lab: [facility] [id number] Performing Lab: [facility] [id number] SED RATE 20 H 5-15 Social History: Smoking Status (Most current) and [...] VA-TOBACCO QUIT 5 TO < 15 YRS [facility] ([facility]) Tobacco Use History This section includes a history of the smoking, or tobacco-related health factors, that were collected on or before the date of the Encounter. The data comes from the MD facility where the Encounter took place. Date/Time Smoking Status/Tobacco Use Comment F acility Jul 12, 2022 09:45 AM VA-TOBACCO QUIT 5 TO < 15 YRS [facility] ([facility]) Jul 13, 2021 09:15 AM VA-TOBACCO FORMER USER [facility] ([facility]) Jul 13, 2021 09:15 AM VA-TOBACCO QUIT 5 TO < 15 YRS [facility] ([facility]) Jun 28, 2020 09:15 AM VA-TOBACCO FORMER USER [facility] ([facility]) Jun 28, 2020 09:15 AM VA-TOBACCO QUIT 5 TO < 15 YRS [facility] ([facility]) Mar 23, 2019 03:20 PM VA-TOBACCO FORMER USER [facility] ([facility]) Mar 23, 2019 03:20 PM VA-TOBACCO QUIT 5 TO < 15 YRS [facility] ([facility]) Apr 01, 2018 02:59 PM VA-TOBACCO FORMER USER [facility] ([facility]) Apr 01, 2018 02:59 PM VA-TOBACCO QUIT 5 TO < 15 YRS [facility] ([facility]) Jun 28, 2017 01:51 PM FORMER TOBACCO USER 7Y OR GREATE R [facility] ([facility]) Jun 29, 2016 08:43 AM FORMER TOBACCO USE >1Y <7Y [facility] ([facility]) Encounter Notes: All associated encounter notes This section contains the clinical notes associated to the Encounter. Date/Time Encounter Note(s) Provider Source Feb 05, 2023 09:48 AM PHARMACY NOTE: LOCAL TITLE: PHARMACOTHERAPY-CLINICAL PHARMACY NOTE STANDARD TITLE: PHARMACY NOTE DATE OF NOTE: FEB 05, 2023@09:48 ENTRY DATE: FEB 05, 2023@09:48:35 AUTHOR: HELEN AYON COSIGNER: URGENCY: STATUS: COMPLETED Visit Type: In-Clinic LUIS KHOURY is a 77 YO followed by [facility] for diabetes medication management. SUBJECTIVE: shares feeling much better since trial of prednisone. Has been able to play golf again. BGs have been high as a result. Confirms has gone back to full dose of metformin. Lifestyle: exercise is improving with prednisone! ROS: (-) hypoglycemia symptoms (-) hyperglycemia symptoms Carolyn Correa 2 Report Summary Avg BG= 238mg/dL *above target(>180mg/dl)= 76% (>250mg/dL 43%) *below target(<70mg/dl)= 0% *in target(70-180mg/dl)= 24% scans per day= 19 sensor data captured: 98% predicted A1C: 9.1% Top trends: -Afternoon hyperglycemia with BGs trending down back into normal range overnight Adherence to medications: denies missed doses OBJECTIVE: [...] 150. 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 Discussed increasing lunch and evening mealtime coverage to hopefully help BGs to come down into range. Will not increase basal insulin as some instances of near hypoglycemia. -INCREASE insulin aspart to 14 units with breakfast and 16 units with lunch and dinner o If BG >350mg/dL, take 18 units #Disease-Specific Med Rec: Completed today #Labs: -A1c next ~March 2023 - Educated vet on indication/risks/benefits of new/changed medication. - Education provided on therapeutic nonpharmacologic management to achieve goals. - verbalized understanding to all plans discussed today. Questions were answered to vet's satisfaction. Time spent: 45 minutes RTC: March 12 @ 1230 in clinic /hi/ HELEN AYON PHARMTong, [facility] CL[facility]ICAL FAMILY LAW MEDIATOR Signed: 02/05/2023 15:56 HELEN AYON ([facility])
--- OUTSIDE RECORDS SUMMARY | 2023-08-14 09:37 | XMS_ITS | Encounter Summary ---
Author Name [facility] Organization [facility] Address [address] [place] [id number] Support Name Relationship Address Phone BREE KHOURY Next of Kin [address] [place] [address] BREE KHOURY Emergency Contact [address] [place] [address] Insurance Providers: All historical and [...] Policy Vaughn HUMANA MCR (WNR) MEDICARE ADVANTAGE [facility] ([facility]) Jul 29, 2021 [id number] KHOURY,WE SLEY PATIENT HUMANA MCR (WNR) MEDICARE ADVANTAGE [facility] (WNR) Jul 29, 2015 [id number] KHOURY,WE SLEY PATIENT HUMANA MCR (WNR) MEDICARE ADVANTAGE [facility] (WNR) Jul 29, 2015 [id number] KHOURY,WE SLEY PATIENT HUMANA MCR (WNR) MEDICARE ADVANTAGE [facility] (WNR) Jul 29, 2015 [id number] KHOURY,WE SLEY PATIENT Selected Encounter This section includes the information on record at [place] for the Encounter. Date/Time Encounter Type Encounter Description Reason Provider Source Jan 09, 2023 11:30 AM OFFICE O/P EST MOD 30-39 MIN PRIMARY CARE/MEDICINE ICD-10-CM M35.3 Polymyalgia rheumatica ADITYA AGUILAR Encounter Template Text not used by [place] Assessments - Encounter Diagnoses This section includes the primary and secondary diagnoses documented for the Encounter. Date/Time Primary/Secondary Diagnosis Diagnosis Name Provider Source Jan 09, 2023 12:37 PM PRIMARY Polymyalgia rheumatica ADITYA AGUILAR ([facility]) Plan of Treatment: Future Appointments (+ [...] 20 appointments. The data comes from all [facility] facilities. Appointment Date/Time Appointment Type Appointme nt Facility Name Jan 16, 2023 10:00 AM AMBULATORY - MEDICINE [facility] ([facility]) Feb 05, 2023 10:00 AM AMBULATORY - NONE [facility] ([facility]) Feb 07, 2023 01:00 PM [facility]INE [facility] Feb 07, 2023 02:15 PM AMBULATORY - MEDICINE [facility] Feb 18, 2023 11:00 AM AMBULATORY - MEDICINE [facility] Feb 19, 2023 08:00 AM AMBULATORY - NONE [facility] ([facility]) Feb 22, 2023 01:30 PM AMBULATORY - MEDICINE [facility] ([facility]) Mar 04, 2023 02:30 PM AMBULATORY - MEDICINE [facility] Mar 12, 2023 11:30 AM AMBULATORY [...] Range Comment Feb 07, 2023 01:52 PM [facility] SED RATE Specimen Type: BLOOD No comment entered. Ordering Provider: DELIA FARRAR Report Released Date/Time: Feb 07, 2023 01:36 PM Reporting Lab: [facility] [id number] Performing Lab: [facility] [address] SED RATE 10 5-15 Feb 07, 2023 01:52 PM [facility] C-REACTIVE PROTEIN Specimen Type: PLASMA No comment entered. Ordering Provider: DELIA FARRAR Report Released Date/Time: Feb 07, 2023 01:36 PM Reporting Lab: [facility] [address] Performing Lab: [facility] [address] C-REACTIVE PROTEIN 2.95 See_Comment Jan 09, 2023 12:17 PM [facility] ([facility]) SED RATE Specimen Type: BLOOD No comment entered. Ordering Provider: ADITYA AGUILAR Report Released Date/Time: Jan 09, 2023 12:11 PM Reporting Lab: [facility] [address] Performing Lab: [facility] [address] SED RATE 20 H 5-15 Jan 09, 2023 12:17 PM [facility] ([facility]) C-REACTIVE PROTEIN Specimen Type: PLASMA No comment entered. Ordering Provider: ADITYA AGUILAR Report Released Date/Time: Jan 09, 2023 12:11 PM Reporting Lab: [facility] [address] Performing Lab: [facility] [address] C-REACTIVE PROTEIN 0.88 See_Comment Jan 01, 2023 03:37 PM [facility] ([facility]) HEMOGLOBIN A1C Specimen Type: BLOOD Comment: [...] Jan 01, 2023 03:34 PM Reporting Lab: [facility] [address] Performing Lab: [facility] [address] HEMOGLOBIN A1C 8.6 H 4.0-6.0 December 11, 2022 11:53 AM [facility] ([facility]) QI WITH REFLEX TO ISABEL/DNA Specimen Type: SERUM No comment entered. Ordering Provider: ANURAG MADDOX Report Released Date/Time: December 11, 2022 11:49 AM Reporting Lab: [facility] [address] Performing Lab: [facility] [address] .ANTINUCLEAR ANDREW SPECKLED POSITIVE See_Comment .REJI TITER 1:160 See_Comment December 11, 2022 11:53 AM [facility] ([facility]) URIC ACID Specimen Type: PLASMA No comment entered. Ordering Provider: ANURAG MADDOX Report Released Date/Time: December 11, 2022 11:49 AM Reporting Lab: [facility] [address] Performing Lab: [facility] [address] URIC ACID 2.9 L 3.5-7.2 December 11, 2022 11:53 AM [facility] ([facility]) ANTI-CCP Specimen Type: PLASMA No comment entered. Ordering Provider: ANURAG MADDOX Report Released Date/Time: December 11, 2022 11:49 AM Reporting Lab: [facility] [address] Performing Lab: [facility] [address] ANTI-CCP 0.6 <4.9 December 11, 2022 11:53 AM [facility] ([facility]) RHEUMATOID FACTOR Specimen Type: SERUM No comment entered. Ordering Provider: ANURAG MADDOX Report Released Date/Time: December 11, 2022 11:49 AM Reporting Lab: [facility] [address] Performing Lab: [facility] [address] RHEUMATOID FACTOR <13 <29 December 11, 2022 11:53 AM [facility] [facility] ([facility]) C-REACTIVE PROTEIN Specimen Type: PLASMA No comment entered. Ordering Provider: ANURAG MADDOX Report Released Date/Time: December 11, 2022 11:49 AM Reporting Lab: [facility] [address] Performing Lab: [facility] [address] C-REACTIVE PROTEIN 18.30 H <5.00 December 11, 2022 11:53 AM [facility] ([facility]) SED RATE Specimen Type: BLOOD No comment entered. Ordering Provider: ANURAG MADDOX Report Released Date/Time: December 11, 2022 11:49 AM Reporting Lab: [facility] [address] Performing Lab: [facility] [address] SED RATE 38 H 5-15 December 11, 2022 11:53 AM [facility] ([facility]) CBC Specimen Type: BLOOD No comment entered. Ordering Provider: ANURAG MADDOX Report Released Date/Time: December 11, 2022 11:49 AM Reporting Lab: [facility] [address] Performing Lab: [facility] [address] WBC 8.52 4.0-11.0 RBC 4.85 4.6-6.2 HGB 12.3 L 13.5-17.9 HCT 39.4 L 41-54 MCV 81.2 80-100 MCH 25.4 L 27-33 MCHC 31.2 L 32.0-37.5 PLT 499 H 150-400 MPV 9.1 7.4-10.4 RDW 15.4 H 11.5-14.5 December 11, 2022 11:53 AM [facility] ([facility]) ANTI-ISABEL PANEL([employer]) Specimen Type: SERUM Comment: QI WITH REFLEX TO ISABEL/DNA: IM [id number] 110 Reference Range: < 1.0 NEG AI Reference Range: < 1.0 NEG AI Reference Range: < 1.0 NEG AI Reference Range: < 1.0 NEG AI Reference Range: < 1.0 NEG AI Reference Range: < 1.0 NEG AI Test Performed by [facility], [facility], [address] [place] [address] [place] M.D., Ph.D., Director of Laboratories , [facility] [id number] Ordering Provider: ANURAG MADDOX Report Released Date/Time: December 12, 2022 02:23 PM Reporting Lab: [facility] [address] Performing Lab: [facility] [id number] [place] [address] ANTI-IZQUIERDO <1.0 ANTI-BUTTON TUFTER <1.0 ANTI-SSA/RO <1.0 ANTI-SSB/LA <1.0 ANTI-SCL-70 <1.0 ANTI-TAY-1 <1.0 December 11, 2022 11:53 AM [facility] ([facility]) B 12 Specimen Type: SERUM Comment: Specimen received is PLASMA. Ordering Provider: ANURAG MADDOX Report Released Date/Time: December 12, 2022 07:59 AM Reporting Lab: [facility] [address] Performing Lab: [facility] [address] B 12 916 H [phone] December 11, 2022 11:53 AM [facility] ([facility]) IRON GROUP Specimen Type: SERUM Comment: Specimen received is PLASMA. Ordering Provider: ANURAG MADDOX Report Released Date/Time: December 12, 2022 07:59 AM Reporting Lab: [facility] [address] Performing Lab: [facility] [address] IRON 30 L 65-175 TIBC,CALCULAT ED 264 250-425 FERRITIN 189.5 21.8-274.7 IRON SATURATION 11 L 20-50 TRANSFERRIN [phone] December 11, 2022 11:53 AM [facility] ([facility]) FOLATE Specimen Type: SERUM Comment: Specimen received is PLASMA. Ordering Provider: ANURAG MADDOX Report Released Date/Time: December 12, 2022 07:59 AM Reporting Lab: [facility] [address] Performing Lab: [facility] [address] FOLATE 9.2 >7.0 Vital Signs: All taken on the encounter date This section contains inpatient and outpatient Vital Signs collected on the date of the Encounter. Date/Time Temperature Pulse Blood Pressure Respiratory Rate SP02 Pain Height Weight Body Mass Index Source Jan 09, 2023 11:39 AM 61 /min 134/68 mm[Hg] 96 % [facility] ([facility]) Jan 09, 2023 11:36 AM 97.9 F 60 /min 155/74 mm[Hg] 16 /min 95 % 4 189.5 lb 29 [facility] ([facility]) Social History: Smoking Status (Most current) [...] 12, 2022 09:45 AM VA-TOBACCO FORMER USER [place] ([facility]) Tobacco Use History This section includes a history of the smoking, or tobacco-related health factors, that were collected on or before the date of the Encounter. The data comes from the [place] facility where the Encounter took place. Date/Time Smoking Status/Tobacco Use Comment F acility Jul 12, 2022 09:45 AM VA-TOBACCO QUIT 5 TO < 15 YRS [facility] ([facility]) Jul 13, 2021 09:15 AM VA-TOBACCO FORMER USER [place] ([facility]) Jul 13, 2021 09:15 AM VA-TOBACCO QUIT 5 TO < 15 YRS [facility] ([facility]) Jun 28, 2020 09:15 AM VA-TOBACCO FORMER USER [facility] ([facility]) Jun 28, 2020 09:15 AM VA-TOBACCO QUIT 5 TO < 15 YRS [facility] ([facility]) Mar 23, 2019 03:20 PM VA-TOBACCO FORMER USER [facility] ([facility]) Mar 23, 2019 03:20 PM VA-TOBACCO QUIT 5 TO < 15 YRS [facility] ([facility]) Apr 01, 2018 02:59 PM VA-TOBACCO FORMER USER [facility] [facility] ([facility]) Apr 01, 2018 02:59 PM VA-TOBACCO QUIT 5 TO < 15 YRS [facility] ([facility]) Jun 28, 2017 01:51 PM FORMER TOBACCO USER 7Y OR GREATE R [facility] ([facility]) Jun 29, 2016 08:43 AM FORMER TOBACCO USE >1Y <7Y [facility] ([facility]) Radiology Reports: +/- 30 days of [...] the Encounter. The data comes from all [place] treatment facilities. Date/Time Radiology Report Provider Source December 11, 2022 12:01 PM HAND LEFT 3 VIEWS OR MORE: LUIS KHOURYTJ [id number] -[id number] M Exm Date: DECEMBER 11, 2022@12:01 Req Phys: ANURAG MADDOX Loc: [facility] (Req'g Loc) Img Loc: [facility] Service: Unknown (Case [id number] COMPLETE) HAND LEFT 3 VIEWS OR MORE (RAD Detailed) CPT:24603 Proc Modifiers : LEFT Reason for Study: b/l hands pain Clinical History: [place] IS NOT under investigation for COVID-19 or [...] 11, 2022 Date Verified: DECEMBER 11, 2022 Drier Tender Naphthalene E-Sig:/ES/ADDIE PARMAR DO Report: EXAMINATION: HAND RIGHT [...] Primary Interpreting Staff: ADDIE PARMAR DO, RADIOLOGIST (Drier Tender Naphthalene) /DDS ADDIE PARMAR [facility] December 11, 2022 12:01 PM HAND RIGHT 3 VIEWS OR MORE: KHOURYANNE-MARIELUISEMMA CISNEROS [id number] -[id number] M Exm Date: DECEMBER 11, 2022@12:01 Req Phys: LI,ANURAG Pat Loc: [facility] (Req'g Loc) Img Loc: [facility] Service: Unknown (Case [id number] COMPLETE) HAND RIGHT 3 VIEWS OR MORE (RAD Detailed) CPT:56880 Proc Modifiers : RIGHT Reason for Study: [...] 11, 2022 Date Verified: DECEMBER 11, 2022 Drier Tender Naphthalene E-Sig:/ES/ADDIE PARMAR DO Report: EXAMINATION: HAND RIGHT [...] Primary Interpreting Staff: ADDIE PARMAR DO, RADIOLOGIST (Drier Tender Naphthalene) /DDS ADDIE PARMAR [facility] Encounter Notes: All associated encounter notes This section contains the clinical notes associated to the Encounter. Date/Time Encounter Note(s) Provider Source Jan 11, 2023 12:00 PM LETTERS: LOCAL TITLE: FOLLOW UP RESULTS LETTER STANDARD TITLE: LETTERS DATE OF NOTE: JAN 11, 2023@12:00 ENTRY DATE: JAN 11, 2023@12:00:21 AUTHOR: ADITYA AGUILAR EXP COSIGNER: URGENCY: STATUS: COMPLETED [facility] [address] [place] [address] Dec ULIS KHOURY [address] [facility] [address] Dear [place]: I am writing to inform you of the results of the tests you had done at the [facility]. The tests below were performed and are satisfactory unless otherwise noted. Jan 09, 2023@12:17 C-REACTIVE PROTEIN: 0.88 mg/L Normal: <=5.00 Jan 09, 2023@12:17 WSR 20.0 H mm/hr Normal: 5 - 15 Comments: Your levels have improved with the prednisone. Your C-raactive protein level is actually now normal. Your sed rate has decreased closer to the normal range. Please follow-up with my PACT RN as planned by phone and see the plasma processing technician on 02/07/2023 as scheduled. If you have any further questions or problems, please contact our nursing staff or me at the following number: [phone] ([place]) Sincerely, ADITYA AGUILAR MD PHYSICIAN ADITYA AGUILAR ([facility]) Jan 09, 2023 11:55 AM PRIMARY CARE NOTE: LOCAL TITLE: [facility] PROGRESS NOTE-[facility] STANDARD TITLE: PRIMARY CARE NOTE DATE OF NOTE: JAN 09, 2023@11:55 ENTRY DATE: JAN 09, 2023@08:27:45 AUTHOR: ADITYA AGUILAR EXP COSIGNER: URGENCY: STATUS: COMPLETED Type of Visit: Face to Face Reason for Visit: Follow-up on joint pain HPI: 77 year-old MALE here for follow-up on joint pain. Normally seen with [facility] [place] was seen on 01/01/2023 for follow-up of his heart and diabetes. He had significant issues with joint pain suspicious for polymyalgia rheumatica. He was started on 15mg of prednisone and follow-up today for results. [place] started the steroid medication about 1 week ago and that night had only had some pain in the shoulders and the hands. He is able to get up from the chair better. Was able to mow Son had a massive heart attack and hit a tree. He went to his son's and was able to the fluoroscope operator and cut down a limb on a tree. He had difficulties with a saw due to having a hard time gripping. Has been able to bend over now. He is frustrated that the strength of his hands hasn't gotten better. He is able to move them better but can't objective c developer anything with strength. Feels like he could swing a golf club but couldn't objective c developer the club. Jes is unable to trim his nails due to the strength issue. Blood sugars. Had some initial numbers in the 300's but overall has been pretty good. Has lost a little weight. Had a day that his blood sugars were higher because he didn't take any insulin. Appears that most of the blood sugar changes are associated with what he is eating since the first day on the prednisone. [place] feels 90% better than last week. Weight down 3.5 lb Co-managed: [facility] Home medications: reviewed and [...] tobacco use 11. Multiple nodules of lung 12. polymyalgia rheumatica Past Surgical History: 1. Left inguinal hernia repair 08/2018 2. PCI with stent placement 3. Family History: 1. Father - Diabetes, Coronary artery disease, of massive CT age 70 2. Mother - dementia 3. Son - Coronary artery disease, CT Social History: 1. Marital Status: 2. Tobacco: Former smoker x55 years 3. ETOH: None 4. Illicit drugs: None 5. Employment: 6. Service: Allergies: Physical Exam: Temp: 97.9 F [36.6 C] (01/09/2023 11:36) Pulse:61 (01/09/2023 11:39) BP: 134/68 (01/09/2023 11:39) Resp: 16 (01/09/2023 11:36) O2 Sat: 96% (01/09/2023 11:39) Weight: 189.5 lb [85.96 kg] (01/09/2023 11:36) BMI: 29.3 Pain: 4 (01/09/2023 11:36) General: AAOx3, NAD, Healthy, comfortable sitting, standing and ambulating HEENT: AT/NC Decreased range of motion of fingers/hands. Can form a partial fist Labs: ---- CBC & MORPH (by collection time) ---- BLOOD December 11 Oct 01 Feb 07 Jun 15 Reference 2022 2022 2022 2021 11:53 09:41 [...] SERUM ANTI-IZQUIERDO: <1.0 December 11, 2022@11:53 SERUM ANTI-BUTTON TUFTER: <1.0 December 11, 202211:53 SERUM ANTI-SSA/RO: <1.0 December 11, 2022@11:53 SERUM ANTI-SSB/LA: <1.0 December 11, 202211:53 SERUM ANTI-SCL-70: <1.0 December 11, 2022@11:53 SERUM ANTI-TAY-1: <1.0 Oct 22, 2022@13:51 BNP: 105 H pg/mL Ref: <=99 Age related BNP cutoffs: <55 yrs:<100 pg/mL 55-64 yrs:<119 pg/mL 65-74 yrs:<160 pg/mL >=75 yrs:<254 pg/mL Oct 01, 2022@09:41 CREAT EGFR(CKD-EPI): >90 Ref: >=60 Sep 04, 2022@11:47 KSENIA-65 ANTIBODY: >250 H IU/mL Ref: <5 IU/mL Sep 04, 2022@11:47 C-PEPTIDE: <0.10 L ng/mL 0.80 - 3.85 -------- [g] Oct 22, 2022 13:51 118 30 L 67 21 88 Jan 01, 2023@15:37 HEMOGLOBIN A1C: 8.6 H % 4.0 - 6.0 Imaging Assessment/Plan: 1. Polymyalgia rheumatica - Age > 50 - Bilateral shoulder and hip pain, most big joints sore - Morning stiffness > 45 mintues - Duration > 2 weeks - Elevated CRP and ESR - Weakly positive QI - 1:160 - speckled - Negative CCP and anti-tay, anti-ssa, anti-izquierdo, anti-scl70 antibodies - [place] had 90% improvement in the last week - Persistent hand and shoulder/upper arm pain and weakness - Glucose levels intermittently elevated - Increase prednisone to 20 mg daily - local 10 day prescription - 45 days prescription to send from [facility] - Follow-up with PACT RN for toe nail trimming and recheck 1 week - Follow-up with rheumatology as planned 02/07/2023. Follow-up plan for prednisone dosing: - If doing well with Prednisone 20 mg daily, continue for 6 weeks - Then, decrease to 17.5 mg daily for 4 weeks - recheck CRP and WSR 2 weeks after decrease dose - Then, decrease to 15 mg daily for 4 weeks - Then, continue decreasing by 2.5 mg every 4 weeks if tolerate decrease CVF - Future Appointment: 01/09/2023 11:30 [facility] 01/31/2023 08:45 [facility] 02/07/2023 13:00 [facility] RHEUM CONSULT [facility] 02/18/2023 11:00 [facility] ECHO OUTPATIENT #2 3J 02/19/2023 08:00 [facility] V23 EYE TECS SFT PT RTC in 1 week with PACT RN CPRS chart review/chart prep: 9 minutes Time with patient: 25 mintues Chart completion: 8 minutes Clinical Reminders: Medication Reconciliation: Education Evaluations *Was medication education provided for NEW medications or CHANGES to medications? (including medication name, dose, route, reason for use, and potential side effects). Yes. Verbal education was provided to patient/caregiver and patient/caregiver verbalized understanding. TERATOGENIC MED & CONTRACEPTION REVIEW (Optional)... MEDICATION [...] Remote Allergy/ADR Data available for this patient [facility] LISINOPRIL [facility] PIOGLITAZONE [facility] SEMAGLUTIDE [facility] WELLBUTRIN Active and Recently Outpatient Medications (including [...] TAKE ONE TABLET BY MOUTH Refills: 2 Last:01-07-23 EVERY DAY FOR HEART DISEASE Expr:09-20-23 3) ATORVASTATIN CALCIUM 80MG TAB Qty: 90 ACTIVE Issu:10-01-22 for 90 days Sig: TAKE ONE TABLET BY Refills: 2 Last:01-07-23 MOUTH AT BEDTIME FOR CHOLESTEROL Expr:10-02-23 4) CLOPIDOGREL BISULFATE 75MG TAB Qty: 90 ACTIVE Issu:10-01-22 for 90 days Sig: TAKE ONE TABLET BY Refills: 3 Last:10-02-22 MOUTH EVERY DAY FOR 1 YEAR AFTER STENT Expr:10-02-23 UNTIL 09/25/2023 5) CYANOCOBALAMIN 1000MCG TAB Qty: 100 for ACTIVE Issu:09-19-22 90 days Sig: TAKE ONE TABLET BY MOUTH Refills: 2 Last:01-07-23 EVERY DAY FOR B12 SUPPLEMENT Expr:09-20-23 6) DICLOFENAC NA 1% TOP GEL Qty: 200 for ACTIVE Issu:10-01-22 30 days Sig: APPLY 4 GRAMS TOPICALLY Refills: 0 Last:01-07-23 THREE TIMES A DAY NEEDED TO Expr:10-02-23 AFFECTED AREA FOR PAIN 7) FUROSEMIDE 40MG TAB Qty: 90 for 90 days ACTIVE Issu:10-01-22 Sig: TAKE ONE TABLET BY MOUTH EVERY Refills: 2 Last:01-07-23 MORNING FOR EXCESS FLUID Expr:10-02-23 8) GLUCOSE SENSOR FREESTYLE JULIO CESAR 2 Qty: 2 ACTIVE Issu:10-23-22 for 28 days Sig: USE 1 SENSOR Refills: 9 Last:01-07-23 EVERY 14 DAYS Expr:10-24-23 9) INSULIN,ASPART(EQV-NOVLG)100UN/ ML FLXPEN ACTIVE Issu:12-06-22 Qty: 10 for 60 [...] Last:12-06-22 DAY FOR HEART FAILURE Expr:12-07-23 13) METFORMIN HCL 1000MG TAB Qty: 180 for HOLD Issu:01-01-23 90 days Sig: TAKE ONE TABLET BY MOUTH Refills: 3 TWICE A DAY FOR DIABETES Expr:01-02-24 14) METOPROLOL SUCCINATE 50MG SA TAB Qty: ACTIVE Issu:10-01-22 90 for 90 days Sig: TAKE ONE TABLET Refills: 2 Last:01-07-23 BY MOUTH EVERY DAY FOR HEART Expr:10-02-23 PROTECTION 15) NEEDLE,PEN 31G,8MM Qty: 400 for 90 days ACTIVE Issu:07-19-22 Sig: USE 1 NEEDLE UNDER THE SKIN Refills: 1 Last:01-07-23 DIRECTED FOR INSULIN INJECTIONS Expr:07-20-23 *DISPOSE OF IN A HARD-PLASTIC CONTAINER WITH A SCREW-ON LID CONTACT GARBAGE HAULER FOR PROPER DISPOSAL 16) NITROGLYCERIN 0.4MG SL TAB Qty: 100 for ACTIVE Issu:10-01-22 30 days Sig: DISSOLVE ONE TABLET Refills: 2 Last:01-07-23 UNDER THE TONGUE EVERY 5 MINUTES FOR Expr:10-02-23 UP TO 3 DOSES IF NEEDED FOR CHEST PAIN Issue Date Status Last Fill Pending Outpatient Medications Refills Expiration 1) PREDNISONE 20MG TAB Qty: 45 Sig: TAKE PENDING ONE TABLET BY MOUTH EVERY DAY Refills: 0 Issue Date Status Last Fill Inactive Outpatient [...] HARD-PLASTIC CONTAINER WITH A SCREW-ON LIDCONTACT GARBAGE HAJOSUÉ FOR PROPER DISPOSAL 9) INSULIN,ASPART 100UNIT/ML PENFILL 3ML DISCONTINUED Issu:07-12-22 Qty: 5 for 90 days Sig: INJECT 6 Refills: 3 Last:07-16-22 UNITS UNDER THE SKIN EVERY MORNING AND Expr:07-13-23 INJECT 8 UNITS TWICE A DAY DIABETES INJECT IMMEDIATELY BEFORE MEAL 10) INSULIN,ASPART(EQV-NOVLG)100UN/ ML FLXPEN DISCONTINUED Issu:09-04-22 Qty: 5 for 50 days Sig: INJECT 10 (EDIT) Last:12-03-22 UNITS UNDER THE SKIN THREE TIMES A DAY Refills: 4 Expr:09-05-23 WITH MEALS FOR DIABETES - SKIP DOSE IF NOT EATING 11) INSULIN,ASPART(EQV-NOVLG)100UN/ ML FLXPEN DISCONTINUED Issu:08-21-22 Qty: 5 for 50 days Sig: INJECT 10 Refills: 6 Last:08-21-22 UNITS UNDER THE SKIN THREE TIMES A DAY Expr:08-22-23 WITH MEALS FOR DIABETES SKIP DOSE IF NOT EATING 12) INSULIN,ASPART(EQV-NOVLG)100UN/ ML FLXPEN DISCONTINUED Issu:07-19-22 Qty: 5 for 65 [...] DAY NEEDED 2) Non-VA PREDNISONE 20MG TAB SiMG ACTIVE MOUTH DAILY Start Date Inactive Non-VA Medications Refills Expiration 1) Non-VA PREDNISONE 5MG TAB SiMG DISCONTINUED MOUTH DAILY 38 Total Medications /es/ ADITYA AGUILAR MD PHYSICIAN Signed: 01/09/2023 12:37 ADITYA AGUILAR ([facility]) Jan 09, 2023 11:36 AM PRIMARY CARE JOSE FRANCISCO ZAVALETA NOTE: LOCAL TITLE: [facility] NURSING PROGRESS NOTE STANDARD TITLE: PRIMARY CARE NURSING NOTE DATE OF NOTE: JAN 09, 2023@11:36 ENTRY DATE: JAN 09, 2023@11:37 AUTHOR: MILLY GALDAMEZ COSIGNER: URGENCY: STATUS: COMPLETED TYPE OF VISIT: Appointment Check In Type of appointment: In-person appointment REASON FOR VISIT: Follow up joint pain ALLERGIES: WELLBUTRIN (Jun 29, 2016) LISINOPRIL (Sep 25, 2018) PIOGLITAZONE (Feb 17, 2019) SEMAGLUTIDE (Jan 10, 2022) VITAL SIGNS: Blood Pressure: 155/74 (01/09/2023 11:36) Pulse: 60 (01/09/2023 11:36) Respiration: 16 (01/09/2023 11:36) Temperature: 97.9 F [36.6 C] (01/09/2023 11:36) Weight: 189.5 lb [85.96 kg] (01/09/2023 11:36) Height: 67.5 in [171.5 cm] (01/01/2023 14:40) BMI: 29.3 O2 Sat: 95% (01/09/2023 11:36) Pain: 4 (01/09/2023 11:36) PAIN SCREEN: Patient is having significant pain that they would like to talk to their provider about today. Old (Chronic) (began more than 6 months ago) Patient states their average pain this past week is 5 Patient states the average number on how the chronic pain affects their enjoyment of life the past week is 3 Patient states during the past week the average number on how the pain has interfered with their general activity is 8 Influenza Immunization: The patient declines to receive the recommended dose of seasonal influenza vaccine. 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
--- OUTSIDE RECORDS SUMMARY | 2023-08-14 09:37 | XMS_ITS | Encounter Summary ---
Author Name Department of Vetera Affairs Organization Department of Vetera Affairs Address [address] [place] [id number] Support Name Relationship Address Phone BREE KHOURY Next of Kin [address] [place] [address] BREE KHOURY Emergency Contact [address] [place] [address] Insurance Providers: All historical and [...] Policy Vaughn [employer] MCR (WNR) MEDICARE ADVANTAGE [facility] (WNR) Jul 29, 2021 [id number] KHOURY,WE SLEY PATIENT [employer] MCR (WNR) MEDICARE ADVANTAGE MCR (WNR) Jul 29, 2015 [id number] KHOURY,WE [place] PATIENT [employer]NA MCR (WNR) MEDICARE ADVANTAGE MCR (WNR) Jul 29, 2015 [id number] KHOURY,WE SLEY PATIENT [employer] MCR (WNR) MEDICARE ADVANTAGE [facility] (WNR) Jul 29, 2015 [id number] [phone] KHOURY,WE SLEY PATIENT Selected Encounter This section includes the information on record at OR for the Encounter. Date/Time Encounter Type Encounter Description Reason Provider Source Feb 07, 2023 01:00 PM OFF/OP CNSLTJ NEW/EST MOD 40 RHEUMATOLOGY/ARTH RITIS ICD-10-CM M35.3 Polymyalgia rheumatica DELIA FARRAR Encounter Template Text not used by OR Assessments - Encounter Diagnoses This section includes the primary and secondary diagnoses documented for the Encounter. 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 This section includes future appointments and future orders which are active, pending or scheduled. Future Appointments This section includes appointments that were scheduled to occur 6 months from the date of the Encounter, up to a maximum of 20 appointments. The data comes from all [facility] facilities. Appointment Date/Time Appointment Type Appointme nt Facility Name Feb 18, 2023 11:00 AM AMBULATORY - MEDICINE [facility] Feb 19, 2023 08:00 AM AMBULATORY - NONE [facility] ([facility]) Feb 22, 2023 01:30 PM AMBULATORY - MEDICINE [facility] ([facility]) Mar 04, 2023 02:30 PM AMBULATORY - MEDICINE [facility] Mar 12, 2023 11:30 AM [...] 25, 2023 02:30 PM AMBULATORY - MEDICINE [facility] Lab Results: +/- 30 days of [...] Range Comment Feb 07, 2023 01:[address] [facility] SED RATE Specimen Type: BLOOD No comment entered. Ordering Provider: DELIA FARRAR Report Released Date/Time: Feb 07, 2023 01:36 PM Reporting Lab: [facility] [id number] Performing Lab: [facility] [id number] SED RATE 10 5-15 Feb 07, 2023 01:[address] [facility] C-REACTIVE PROTEIN Specimen Type: PLASMA No comment entered. Ordering Provider: DELIA FARRAR Report Released Date/Time: Feb 07, 2023 01:36 PM Reporting Lab: [facility] [id number] Performing Lab: [facility] [id number] C-REACTIVE PROTEIN 2.95 See_Comment Jan 09, 2023 12:17 PM [facility] ([facility]) SED RATE Specimen Type: BLOOD No comment entered. Ordering Provider: ADITYA AGUILAR Report Released Date/Time: Jan 09, 2023 12:11 PM Reporting Lab: [facility] [id number] Performing Lab: [facility] [id number] SED RATE 20 H 5-15 Jan 09, 2023 12:17 PM [facility] ([facility]) C-REACTIVE PROTEIN Specimen Type: PLASMA No comment entered. Ordering Provider: ADITYA AGUILAR Report Released Date/Time: Jan 09, 2023 12:11 PM Reporting Lab: [facility] [id number] Performing Lab: [facility] [id number] C-REACTIVE PROTEIN 0.88 See_Comment Vital Signs: All taken on the encounter date This section contains inpatient and outpatient Vital Signs collected on the date of the Encounter. Date/Time Temperature Pulse Blood Pressure Respiratory Rate SP02 Pain Height Weight Body Mass Index Source Feb 07, 2023 12:43 PM 97.3 F 61 /min 138/68 mm[Hg] 16 /min 96 % 2 199.3 lb 31 [facility] Encounter Notes: All associated encounter notes This section contains the clinical notes associated to the Encounter. Date/Time Encounter Note(s) Provider Source Feb 07, 2023 01:06 PM RHEUMATOLOGY CONSU LT: LOCAL TITLE: RHEUMATOLOGY CONSULT STANDARD TITLE: RHEUMATOLOGY CONSULT DATE OF NOTE: FEB 07, 2023@13:06 ENTRY DATE: FEB 07, 2023@13:06:28 AUTHOR: TAMRA FARRAR EXP COSIGNER: URGENCY: STATUS: COMPLETED Reason for consult: PMR History of present illness: This is a 77 year old MALE who presents to rheumatology clinic today for evaluation of PMR. He was seen in primary care initially 12/2022 and PMR suspected so he was started on prednisone. Pt notes that 07/12 [place] the [place]. Usually he can walk 3 laps without difficulty, but that day he went 2 laps and had to stop because of hip pain and swelling in feet. Eventually he has bilateral shoulder and hand pain as well. By July, he couldn't even make one lap. 08/2022 he had WI and needed to have stents placed. During [...] any illnesses prior to onset of symptoms. ROS: - Constitutional: Denies fevers, chills or unexplained weight changes. No excessive fatigue. - HEENT: No headaches or jaw claudication. No vision changes. - CVS: Denies chest pain. - RESP: No SOB, cough or hemoptysis. - GI: Denies dysphagia. No diarrhea. No known hx of IBD. - MUSCULOSKELETAL: See HPI. - SKIN: No rash over face or history of chronic rashes. Denies any palpable rash over skin. No known hx of psoriasis. Past Medical History: Hypertensive disorder (SCT 57244496) Mixed hyperlipidemia (SCT 420703194) Pernicious anemia (SCT 02022613) History of adenomatous polyp of colon (SCT 535536694) Ex-tobacco user (SCT 565515434) Multiple nodules of lung (SCT 627962377) Peripheral neuropathy due to type 1 diabCAD - Coronary Artery Disease (SCT 24372241) CHF - Congestive Heart Failure (SCT 4234Aortic valve stenosis (SCT 61298807) Type 1 diabetes mellitus (SCT 91190883) Anemia (SCT 641624754) Polymyalgia rheumatica (SCT 04528588) Family Hx: No known family history of autoimmune diseases. Allergies: WELLBUTRIN (Jun 29, 2016) LISINOPRIL (Sep [...] 14 DAYS 9) INSULIN,ASPART(EQV-NOVLG)1 00UN/ML FLXPEN INJECT 12 ACTIVE UNITS UNDER THE [...] IF NEEDED FOR CHEST PAIN 17) PREDNISONE 20MG TAB TAKE ONE TABLET BY MOUTH EVERY ACTIVE DAY FOR POLYMYALGIA RHEUMATICA Active Non-VA Medications Status 1) Non-VA CYCLOBENZAPRINE HCL 10MG TAB 10MG MOUTH THREE ACTIVE TIMES A DAY NEEDED 2) Non-VA PREDNISONE 20MG TAB 20MG MOUTH DAILY ACTIVE 19 Total Medications Physical Examination: Vital signs: Temp: 97.3 F [36.3 C] (02/07/2023 12:43) BP: 138/68 (02/07/2023 12:43) Pulse:61 (02/07/2023 12:43) Resp: 16 (02/07/2023 12:43) Weight: 199.3 lb [90.40 kg] (02/07/2023 12:43) BMI: 30.8 Pain: 2 (02/07/2023 12:43) O2 Sat: 96% (02/07/2023 12:43) GENERAL: The patient is sitting comfortably in no apparent distress. HEENT: PERRL, EOMI. No scleral icterus or conjunctival inflammation. No facial tightening for furrowing. No malar rash or telangiectasias. NECK: Supple, no lymphadenopathy RESP: Clear to auscultation bilaterally. GI: BS+, non-tender, non-distended, no hepatosplenomegaly. DIMENSION SPECIFICATION INSPECTOR: Nerves II-XII grossly intact. Sensation grossly intact to light touch. 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 Good skin turgor and normal tenting. No nail changes. MSK: No sub-cutaneous nodules. No gross muscle tenderness. No synovitis on exam. One tender joint (R 3rd MCP). Pt able to stand without using his arms. Full AROM of bilateral shoulders. LABORATORY DATA: WBC 8.52 (12/11/22) HGB 12.3 L (12/11/22) PLT 499 H (12/11/22) CREATININE 0.8 (10/01/22) SGOT 18 (09/04/22) SGPT 17 (09/04/22) ALK PHOSPHATASE 108 (09/04/22) BILIRUBIN, TOTAL 0.5 (09/04/22) WESTERGREN 20 H (01/09/23) C-REACTIVE PROTEIN 0.88 (01/09/23) RHEUMATOID FACTOR <13 (12/11/22) CCP < 0.6 URIC ACID 2.9 L (12/11/22) ANTINUCLEAR ANDREW SPECKLED-POS 1:160 (12/11/22) SLT - ISABEL Collection DT Specimen Test Name Result Units Ref Range 12/11/2022 11:53 SERUM !! ANTI-TADEO <1.0 12/11/2022 11:53 SERUM !! ANTI-APPOINTMENT SCHEDULER <1.0 12/11/2022 11:53 SERUM !! ANTI-SSA/RO <1.0 12/11/2022 11:53 SERUM !! ANTI-SSB/LA <1.0 12/11/2022 11:53 SERUM !! ANTI-SCL-70 <1.0 12/11/2022 11:53 SERUM !! ANTI-TAY-1 <1.0 Imaging: Impression: Right hand: No acute fracture or [...] the third digit. No definite erosive changes. Assessment/Plan: 1. PMR Comment: This does seem to be the most likely diagnosis, but did discuss with the patient that he may have an evolving inflammatory areas as well. Rheumatoid factor and CCP are negative. He did have a mildly positive REJI, but ISABEL was negative. CRP normalized after starting on prednisone and ESR decreased initially, but normal today on recheck. Will recheck labs today. Of note, the patient stated that at one point he had swelling in his legs and feet along with some pain in the feet. This did improve after he was on diuretics. Shortly after the leg swelling, he was also had a heart attack which may explain that he had. The feet are spared in PMR, so if this was truly inflammatory arthritis in his feet that makes PMR less likely and an evolving inflammatory arthritis such as seronegative rheumatoid arthritis more possible. He has no psoriasis history. Xrays read as possible marginal erosive change, but no clear erosions. If erosions are present in DIP joints, this would be most consistent with PsA. He has responded very well to prednisone, so will plan to taper as usually is done with PMR. The patient is diabetic, and his blood sugar levels have increased on the prednisone. He is working with his PACT pharmacist on this. Patient has already been on prednisone 20 mg daily for 1 month, so will have him titrate down to 15mg daily as soon as he receives his next prescription. Discussed signs and symptoms of GCA and discussed with the patient. Patient contact the clinic or present to the emergency room immediately if it is present. At this time he has no of symptoms consistent with GCA. Discussed calcium intake while on prednisone. Plan: Labs after this visit. Prednisone 15 mg daily for 1 month, then 12.5 mg daily for 1 month, then 10 mg daily for 1 month. RTC 2 months [facility], sooner PRN. /hi/ TAMRA FARRAR NP NURSE PRACTITIONER Signed: 02/07/2023 14:[address] [facility] Feb 07, 2023 12:45 PM INTERNAL MEDICINE OUTPATIENT NOTE: LOCAL TITLE: MEDICINE CLINIC NURSING NOTE STANDARD TITLE: INTERNAL MEDICINE OUTPATIENT NOTE DATE OF NOTE: FEB 07, 2023@12:45 ENTRY DATE: FEB 07, 2023@12:45:49 AUTHOR: VOLODYMYR DESAI EXP COSIGNER: URGENCY: STATUS: COMPLETED TYPE OF VISIT: Appointment Check In Type of appointment: In-person appointment REASON FOR VISIT: clinic visit ALLERGIES: WELLBUTRIN (Jun 29, 2016) LISINOPRIL (Sep 25, 2018) PIOGLITAZONE (Feb 17, 2019) SEMAGLUTIDE (Jan 10, 2022) VITAL SIGNS: Blood Pressure: 138/68 (02/07/2023 12:43) Pulse: 61 (02/07/2023 12:43) Respiration: 16 (02/07/2023 12:43) Temperature: 97.3 F [36.3 C] (02/07/2023 12:43) Weight: 199.3 lb [90.40 kg] (02/07/2023 12:43) Height: 67.5 in [171.5 cm] (01/01/2023 14:40) BMI: 30.8 O2 Sat: 96% (02/07/2023 12:43) Pain: 2 (02/07/2023 12:43) PAIN SCREEN: Patient is not having significant pain that they wish to discuss with their provider today. MEDICATION Over the Counter/Herbal Medications: The patient states that they take some outside medications and/or herbals. /hi/ VOLODYMYR DESAI EQUIPMENT TECHNICIAN Signed: 02/07/2023 12:[address] [facility]
--- OUTSIDE RECORDS SUMMARY | 2023-08-14 09:37 | XMS_ITS | Encounter Summary ---
Author Name Department of Vetera Affairs Organization Department of Vetera Affairs Address [address] [place] [address] Support Name Relationship Address Phone BREE KHOURY Next of Kin [address] [place] [address] BREE KHUORY Emergency Contact [address] [place] [address] Insurance Providers: All historical and [...] Policy Vaughn [employer] MCR (WNR) MEDICARE ADVANTAGE [facility] (R) Jul 29, 2021 [id number] [phone] KHOURY,WE SLEY PATIENT HU[employer] MCR (WNR) MEDICARE ADVANTAGE [facility] (WNR) Jul 29, 2015 [id number] [phone] KHOURY,WE SLEY PATIENT [employer] MCR (WNR) MEDICARE ADVANTAGE [facility] (WNR) Jul 29, 2015 [id number] [phone] KHOURY,WE SLEY PATIENT [employer] MCR (WNR) MEDICARE ADVANTAGE [facility] (WNR) Jul 29, 2015 [id number] KHOURY,WE SLEY PATIENT Selected Encounter This section includes the information on record at [place] for the Encounter. Date/Time Encounter Type Encounter Description Reason Provider Source Jan 16, 2023 10:00 AM OFF/OP EST NOVEMBER X REQ PHY/QHP PRIMARY CARE/MEDICINE ICD-10-CM M35.3 Polymyalgia rheumatica ABDIRASHID OSBORNE N M [facility] Encounter Template Text not used by [place] Assessments - Encounter Diagnoses This section includes the primary and secondary diagnoses documented for the Encounter. Date/Time Primary/Secondary Diagnosis Diagnosis Name Provider Source Jan 16, 2023 10:46 AM PRIMARY Polymyalgia rheumatica INDIAABDIRASHID [facility] ([facility]) Plan of Treatment: Future Appointments (+ 6 months) and Future Tests (+/- 45 days) The Plan of Treatment section includes future care activities for the patient from all [place] treatmentfacilities. This section includes future appointments and future orders which are active, pending or scheduled. Future Appointments This section includes appointments that were scheduled to occur 6 months from the date of the Encounter, up to a maximum of 20 appointments. The data comes from all [facility] facilities. Appointment Date/Time Appointment Type Appointme nt Facility Name Feb 05, 2023 10:00 AM AMBULATORY - NONE [facility] ([facility]) Feb 07, 2023 01:00 PM AMBULATORY - MEDICINE [facility] Feb 07, 2023 02:15 PM AMBULATORY - MEDICINE [facility] Feb 18, 2023 11:00 AM AMBULATORY - MEDICINE [facility] Feb 19, 2023 08:00 AM AMBULATORY - NONE [facility] ([facility]) Feb 22, 2023 01:30 PM AMBULATORY - MEDICINE [facility] ([facility]) Mar 04, 2023 02:30 PM AMBULATORY - MEDICINE [facility] Mar 12, 2023 11:30 AM AMBULATORY [...] and Hematology Lab Results on record with AR for the patient. Radiology Reports and Pathology Reports are provided separately, in subsequent sections. Lab Results This section contains the Chemistry/Hematology Results that were resulted 30 days before or 30 daysafter the date of the Encounter. Date/Time Source Result Type Result - Unit Interpretation Reference Range Comment Feb 07, 2023 01:52 PM [facility] C-REACTIVE PROTEIN Specimen Type: PLASMA No comment entered. Ordering Provider: DELIA FARRAR Report Released Date/Time: Feb 07, 2023 01:36 PM Reporting Lab: [facility] [id number] Performing Lab: [facility] [id number] C-REACTIVE PROTEIN 2.95 See_Comment Feb 07, 2023 01:52 PM [facility] SED RATE Specimen Type: BLOOD No comment entered. Ordering Provider: DELIA FARRAR Report Released Date/Time: Feb 07, 2023 01:36 PM Reporting Lab: [facility] [id number] Performing Lab: [facility] [id number] SED RATE 10 5-15 Jan 09, 2023 12:17 PM [facility] ([facility]) C-REACTIVE PROTEIN Specimen Type: PLASMA No comment entered. Ordering Provider: ADITYA AGUILAR Report Released Date/Time: Jan 09, 2023 12:11 PM Reporting Lab: [facility] [id number] Performing Lab: [facility] [id number] C-REACTIVE PROTEIN 0.88 See_Comment Jan 09, 2023 12:17 PM [facility] ([facility]) SED RATE Specimen Type: BLOOD No comment entered. Ordering Provider: ADITYA AGUILAR Report Released Date/Time: Jan 09, 2023 12:11 PM Reporting Lab: [facility] [id number] Performing Lab: [facility] [id number] SED RATE 20 H 5-15 Jan 01, 2023 03:37 PM [facility] ([facility]) [...] Jan 01, 2023 03:34 PM Reporting Lab: [facility] [phone] Performing Lab: [facility] [phone] HEMOGLOBIN A1C 8.6 H 4.0-6.0 Social History: Smoking Status (Most current) and Tobacco Use (All prior to encounter date) This section includes the most current, and the historical, smoking and tobacco- related health factors from the [place] facility where the Encounter took place. Current Smoking Status This section includes the most current smoking, or tobacco-related health factor, from the [facility] facility where the Encounter took place. Date/Time Current Smoking Status Comment Facil ity Jul 12, 2022 09:45 AM VA-TOBACCO FORMER USER [facility] ([facility]) Tobacco Use History This section includes a history of the smoking, or tobacco-related health factors, that were collected on or before the date of the Encounter. The data comes from the [place] facility where the Encounter took place. Date/Time Smoking Status/Tobacco Use Comment F acility Jul 12, 2022 09:45 AM VA-TOBACCO QUIT 5 TO < 15 YRS [facility] ([facility]) Jul 13, 2021 09:15 AM VA-TOBACCO FORMER USER [facility] ([facility]) Jul 13, 2021 09:15 AM VA-TOBACCO QUIT 5 TO < 15 YRS [facility] ([facility]) Jun 28, 2020 09:15 AM VA-TOBACCO FORMER USER [facility] ([facility]) Jun 28, 2020 09:15 AM VA-TOBACCO QUIT 5 TO < 15 YRS [facility] ([facility]) Mar 23, 2019 03:20 PM VA-TOBACCO FORMER USER [facility] ([facility]) Mar 23, 2019 03:20 PM VA-TOBACCO QUIT 5 TO < 15 YRS [facility] ([facility]) Apr 01, 2018 02:59 PM VA-TOBACCO FORMER USER [facility] ([facility]) Apr 01, 2018 02:59 PM VA-TOBACCO QUIT 5 TO < 15 YRS [facility] ([facility]) Jun 28, 2017 01:51 PM FORMER TOBACCO USER 7Y OR GREATE R [facility] ([facility]) Jun 29, 2016 08:43 AM FORMER TOBACCO USE >1Y <7Y [facility] ([facility]) Encounter Notes: All associated encounter notes This section contains the clinical notes associated to the Encounter. Date/Time Encounter Note(s) Provider Source Jan 16, 2023 10:37 AM PRIMARY CARE [facility]A NOTE: LOCAL TITLE: [facility] NURSING PROGRESS NOTE STANDARD TITLE: PRIMARY CARE NURSING NOTE DATE OF NOTE: JAN 16, 2023@10:37 ENTRY DATE: JAN 16, 2023@10:37:05 AUTHOR: JADE OSBORNE EXP COSIGNER: URGENCY: STATUS: COMPLETED [facility] NURSING PROGRESS NOTE Has ADDENDA Patient contact Name of [place] [facility]: LUIS KHOURY Name/Relationship of Contact if other than : Date & Time of Contact: Dec@10:36 Type of Contact: In person Reason for Contact: [facility] [facility] was scheduled for Toe Nail Trimming and Prednisone F/u Assessment: -Toe nail trimming was not done at appointment -[facility] trimmed own toe nails on SaturdayJan 13 -[facility] reports that he has been feeling amazing since starting Prednisone -Started 20 mg daily Jan 13 -Reports dramatic pain reduction -Dexterity has returned to hands -Walks better -Able to stand up straight - has started golfing again -Drum Maker reviewed CGM 7 day average report -Average BG 220 mg/dL -Time BG 0000 to 0600 183 0600 to 9689 497 7296 to 5470 104 9700 to 0000 277 - admits he has been snacking and eating more things that he shouldn't be Plan: -PCP review for recommendations. wanted copywriter to relay his great gratitude for PCP help and recommendations. Plan from Jan 09 [facility] Progress note Follow-up plan for prednisone dosing: - If doing well with Prednisone 20 mg daily, continue for 6 weeks - Then, decrease to 17.5 mg daily for 4 weeks - recheck CRP and WSR 2 weeks after decrease dose - Then, decrease to 15 mg daily for 4 weeks - Then, continue decreasing by 2.5 mg every 4 weeks if tolerate decrease - to attend appoints as scheduled -[facility] agreeable to any labs indicated by PCP and can be ordered - aware that current plan may be to continue Prednisone 20 mg daily for 6 weeks, but this plan may be adjusted by Rheumatology after his upcoming visit. Future Appointments: JAN 16, 2023@10:00 Clinic: [facility] MIN RN JAN 31, 2023@08:45 Clinic: [facility] FEB 07, 2023@13:00 Clinic: [facility] RHEUM CONSULT [facility] FEB 18, 2023@11:00 Clinic: [facility] ECHO OUTPATIENT #[id number] FEB 19, 2023@08:00 Clinic: [facility] V23 EYE TECS SFT PT /hi/ Jade Osborne RN [facility] Signed: 01/16/2023 10:46 Receipt Acknowledged By: 01/18/2023 13:03 /hi/ ADITYA AGUILAR MD PHYSICIAN 01/18/2023 ADDENDUM STATUS: COMPLETED Prescription for prednisone was sent to the pharmacy: Prednisone 20mg 1 pill daily x 45 days (6 weeks) Please plan to follow-up with in about 5 weeks so that we can review the rheumatology plan and then make sure we have the new prednisone dosing. Thanks /hi/ ADITYA AGUILAR MD PHYSICIAN Signed: 01/18/2023 13:06 Receipt Acknowledged By: 01/22/2023 10:07 /debby Osborne RN [facility] 01/22/2023 ADDENDUM STATUS: COMPLETED -RTC placed for RN follow up in about 5 weeks -RN will ensure reviewal of rheumatology visit notes are reviewed for change of plan with f/u phone call. /debby Osborne RN [facility] Signed: 01/22/2023 10:10 JADE OSBORNE ([facility])
--- OUTSIDE RECORDS SUMMARY | 2023-08-14 09:38 | XMS_ITS | Encounter Summary ---
Author Name Department of [facility] Organization Department of [facility] Address [address] [place] [address] Support Name Relationship Address Phone BREE KHOURY Next of Kin [address] [place] [address] BREE KHOURY Emergency Contact [address] [place] [address] Insurance Providers: All historical and [...] Policy Vaughn HUMANA MCR (WNR) MEDICARE ADVANTAGE [facility] (WNR) Jul 29, 2021 [id number] KHOURY,CHIP SLEY PATIENT HUMANA MCR (WNR) MEDICARE ADVANTAGE MCR (WNR) Jul 29, 2015 [id number] KHOURY,WE SLEY PATIENT HUMANA MCR (WNR) MEDICARE ADVANTAGE MCR (WNR) Jul 29, 2015 [id number] 97 KHOURY,WE SLEY PATIENT HUMANA MCR (WNR) MEDICARE ADVANTAGE [facility] (WNR) Jul 29, 2015 [id number] IRAIDA,CHIP FLORIAN PATIENT Selected Encounter This section includes the information on record at ID for the Encounter. Date/Time Encounter Type Encounter Description Reason Pro vider Source Nov 16, 2022 11:18 AM Outpatient Encounter CLINICAL PHARMACY [facility] Encounter Template Text not used by ID Plan of Treatment: Future Appointments (+ 6 months) and Future Tests (+/- 45 days) The Plan of Treatment section includes future care activities for the patient from [facility]. This section includes future appointments and future orders which are active, pending or scheduled. Future Appointments This section includes appointments that were scheduled to occur 6 months from the date of the Encounter, up to a maximum of 20 appointments. The data comes from all ID treatment facilities. Appointment Date/Time Appointment Type Appointme nt Facility Name December 04, 2022 10:00 AM AMBULATORY - [...] 07, 2023 01:00 PM AM[facility] Feb 07, 2023 02:15 PM AMBULATORY - MEDICINE [facility] Feb 18, 2023 11:00 AM AMBULATORY - MEDICINE [facility] Feb 19, 2023 08:00 AM AMBULATORY - NONE [place] [facility] ([facility]) Feb 22, 2023 01:30 PM [facility]BULATORY - MEDICINE [facility] ([facility]) Mar 04, 2023 02:30 PM AMBULATORY - MEDICINE [facility] Mar 12, 2023 11:30 AM AMBULATORY [...] Result - Unit Interpretation Reference Range Comment December 11, 2022 11:53 AM [facility] ([facility]) QI WITH REFLEX TO ISABEL/DNA Specimen Type: SERUM No comment entered. Ordering Provider: ANURAG MADDOX Report Released Date/Time: December 11, 2022 11:49 AM Reporting Lab: [facility] [address] Performing Lab: [facility] [address] .ANTINUCLEAR ANDREW SPECKLED POSITIVE Negative .REJI TITER 1:160 TITER <1:80 December 11, 2022 11:53 AM [facility] ([facility]) URIC ACID Specimen Type: PLASMA No comment entered. Ordering Provider: ANURAG MADDOX Report Released Date/Time: December 11, 2022 11:49 AM Reporting Lab: [facility] [address] Performing Lab: [facility] [address] URIC ACID 2.9 L 3.5-7.2 December 11, 2022 11:53 AM [facility] ([facility]) ANTI-CCP Specimen Type: PLASMA No comment entered. Ordering Provider: ANURAG MADDOX Report Released Date/Time: December 11, 2022 11:49 AM Reporting Lab: [facility] [address] Performing Lab: [facility] [address] ANTI-CCP 0.6 <4.9 December 11, 2022 11:53 AM [facility] ([facility]) RHEUMATOID FACTOR Specimen Type: SERUM No comment entered. Ordering Provider: ANURAG MADDOX Report Released Date/Time: December 11, 2022 11:49 AM Reporting Lab: [facility] [address] Performing Lab: [facility] [address] RHEUMATOID FACTOR <13 <29 December 11, 2022 11:53 AM [facility] ([facility]) SED RATE Specimen Type: BLOOD No comment entered. Ordering Provider: ANURAG MADDOX Report Released Date/Time: December 11, 2022 11:49 AM Reporting Lab: [facility] [address] Performing Lab: [facility] [address] SED RATE 38 H 5-15 December 11, 2022 11:53 AM [facility] ([facility]) C-REACTIVE PROTEIN Specimen Type: PLASMA No comment entered. Ordering Provider: ANURAG MADDOX Report Released Date/Time: December 11, 2022 11:49 AM Reporting Lab: [facility] [address] Performing Lab: [facility] [address] C-REACTIVE PROTEIN 18.30 H <5.00 December 11, 2022 11:53 AM [facility] ([facility]) CBC Specimen Type: BLOOD No comment entered. Ordering Provider: ANURAG MADDOX Report Released Date/Time: December 11, 2022 11:49 AM Reporting Lab: [facility] [address] Performing Lab: [facility] [address] WBC 8.52 4.0-11.0 RBC 4.85 4.6-6.2 HGB 12.3 L 13.5-17.9 HCT 39.4 L 41-54 MCV 81.2 80-100 MCH 25.4 L 27-33 MCHC 31.2 L 32.0-37.5 PLT 499 H 150-400 MPV 9.1 7.4-10.4 RDW 15.4 H 11.5-14.5 December 11, 2022 11:53 AM [facility] ([facility]) ANTI-ISABEL PANEL(Scaffold) Specimen Type: SERUM Comment: QI WITH REFLEX TO ISABEL/DNA: IM [id number] Reference Range: < 1.0 NEG AI Reference Range: < 1.0 NEG AI Reference Range: < 1.0 NEG AI Reference Range: < 1.0 NEG AI Reference Range: < 1.0 NEG AI Reference Range: < 1.0 NEG AI Test Performed by [facility], [facility], [address] [place] [address] [place] M.D., Ph.D., Director of Laboratories , [facility] [id number] Ordering Provider: ANURAG MADDOX Report Released Date/Time: December 12, 2022 02:23 PM Reporting Lab: [facility] [address] Performing Lab: [address] ANTI-TADEO <1.0 ANTI-SELF PAY SPECIALIST <1.0 ANTI-SSA/RO <1.0 ANTI-SSB/LA <1.0 ANTI-SCL-70 <1.0 ANTI-TAY-1 <1.0 December 11, 2022 11:53 AM [facility] ([facility]) B 12 Specimen Type: SERUM Comment: Specimen received is PLASMA. Ordering Provider: ANURAG MADDOX Report Released Date/Time: December 12, 2022 07:59 AM Reporting Lab: [facility] [address] Performing Lab: [facility] [address] B 12 916 H 213-816 December 11, 2022 11:53 AM [facility] ([facility]) IRON GROUP Specimen Type: SERUM Comment: Specimen received is PLASMA. Ordering Provider: ANURAG MADDOX Report Released Date/Time: December 12, 2022 07:59 AM Reporting Lab: [facility] [address] Performing Lab: [facility] [address] IRON 30 L 65-175 TIBC,CALCULAT ED 264 250-425 FERRITIN 189.5 21.8-274.7 IRON SATURATION 11 L 20-50 TRANSFERRIN 211 163-382 December 11, 2022 11:53 AM [facility] ([facility]) FOLATE Specimen Type: SERUM Comment: Specimen received is PLASMA. Ordering Provider: ANURAG MADDOX Report Released Date/Time: December 12, 2022 07:59 AM Reporting Lab: [facility] [address] Performing Lab: [facility] [address] FOLATE 9.2 >7.0 Oct 22, 2022 01:51 PM [facility] BNP Specimen Type: PLASMA No comment entered. Ordering Provider: OSMANY RIVERA Report Released Date/Time: Oct 22, 2022 01:37 PM Reporting Lab: [facility] [address] Performing Lab: [facility] [address] BNP 105 H <99 Oct 22, 2022 01:51 PM [facility] LIPID PANEL,NON-FASTING Specimen Type: PLASMA No comment entered. Ordering Provider: OSMANY RIVERA Report Released Date/Time: Oct 22, 2022 01:37 PM Reporting Lab: [facility] [address] Performing Lab: [facility] [address] CHOLESTEROL 118 <199 .HDL 30 L >40 LDL CALCULATION 67 <99 VLDL CALCULATION 21 <29 NON HDL CHOLESTEROL 88 <129 TRIG(NON FASTING) 106 <149 Radiology Reports: +/- 30 days of the [...] the Encounter. The data comes from all [place] treatment facilities. Date/Time Radiology Report Provider Source December 11, 2022 12:01 PM HAND LEFT 3 VIEWS OR MORE: ANNE-MARIE KHOURYEMMA CISNEROS [id number] -1945 M Ex Date: DECEMBER 11, 2022@12:01 Req Phys: ANURAG MADDOX Loc: [facility] (Req'g Loc) Img Loc: [facility] Service: Unknown (Case [id number] COMPLETE) HAND LEFT 3 VIEWS OR MORE (RAD Detailed) CPT:29056 Proc Modifiers : LEFT Reason for Study: [...] 11, 2022 Date Verified: DECEMBER 11, 2022 Chute Greaser E-Sig:/ES/ADDIE PARMAR DO Report: EXAMINATION: HAND RIGHT [...] Primary Interpreting Staff: ADDIE PARMAR DO, RADIOLOGIST (Chute Greaser) /KVNGS ADDIE PARMAR [facility] December 11, 2022 12:01 PM HAND RIGHT 3 VIEWS OR MORE: LUIS KHOURY [id number] -1945 M Exm Date: DECEMBER 11, 2022@12:01 Req Phys: ANURAG MADDOX Pat Loc: [facility] (Req'g Loc) Img Loc: [facility] Service: Unknown (Case [id number] COMPLETE) HAND RIGHT 3 VIEWS OR MORE (RAD Detailed) CPT:96863 Proc Modifiers : RIGHT Reason for Study: [...] 11, 2022 Date Verified: DECEMBER 11, 2022 Chute Greaser E-Sig:/ES/ADDIE PARMAR DO Report: EXAMINATION: HAND RIGHT [...] Primary Interpreting Staff: ADDIE PARMAR DO, RADIOLOGIST (Chute Greaser) /KVNGS ADDIE PARMAR [facility] Encounter Notes: All associated encounter notes This section contains the clinical notes associated to the Encounter. Date/Time Encounter Note(s) Provider Source Nov 16, 2022 11:18 AM REPORT OF CONTACT: LOCAL TITLE: APPOINTMENT SCHEDULING NOTE STANDARD TITLE: REPORT OF CONTACT DATE OF NOTE: NOV 16, 2022@11:18 ENTRY DATE: NOV 16, 2022@11:18:26 AUTHOR: ANGIE BARAHONA COSIGNER: URGENCY: STATUS: COMPLETED APPOINTMENT SCHEDULING NOTE Has ADDENDA Return to clinic / follow up order needs clarification or adjustment Order needing clarification Please confirm when should come to clinic for follow up. [facility] will need to be called to schedule Thurman requesting appointment outside the Patient Indicated Date (PID) on: Oct Original order: 11/16/22 /debby BARAHONA [facility] Signed: 11/16/2022 11:20 Receipt Acknowledged By: 11/16/2022 12:07 /hi/ Butch Marley PharmD, BCACP PACT Pharmacy Habitat Conservation Planner 11/16/2022 12:09 /ih/ Butch Marley PharmD, BCACP PACT Pharmacy Habitat Conservation Planner for HELEN AYON 11/16/2022 ADDENDUM STATUS: COMPLETED New RTC entered for ~2 week follow-up. /debby Mraley PharmD, BCACP PACT Pharmacy Habitat Conservation Planner Signed: 11/16/2022 12:08 Receipt Acknowledged By: * AWAITING SIGNATURE * ANGIE BARAHONA MACHELLE L [place] ([facility])
--- OUTSIDE RECORDS SUMMARY | 2023-08-14 09:38 | XMS_ITS | Encounter Summary ---
Author Name [facility] of [facility] Organization [facility] Address [address] [place] [address] Support Name Relationship Address Phone BREE KHOURY Next of Kin [address] [place] [address] BREE KHOURY Emergency Contact [address] [place] [address] Insurance Providers: All historical and [...] Policy Vaughn HUMANA MCR (WNR) MEDICARE ADVANTAGE [facility] ([facility]) Jul 29, 2021 [id number] KHOURY,WE SLEY PATIENT HUMANA MCR (WNR) MEDICARE ADVANTAGE [facility] (R) Jul 29, 2015 [id number] KHOURY,WE SLEY PATIENT HUMANA MCR (WNR) MEDICARE ADVANTAGE [facility] (WNR) Jul 29, 2015 [id number] 97 KHOURY,WE SLEY PATIENT HUMANA MCR (WNR) MEDICARE ADVANTAGE [facility] (R) Jul 29, 2015 [id number] 97 KHOURY,WE SLEY PATIENT Selected Encounter This section includes the information on record at [place] for the Encounter. Date/Time Encounter Type Encounter Description Reason Provider Source Nov 16, 2022 10:30 AM OFF/OP EST NOVEMBER X REQ PHY/QHP PRIMARY CARE/MEDICINE ICD-10-CM E10.40 Type 1 diabetes mellitus with diabetic neuropathy, unsp WALBY,ADDIE W [facility] Encounter Template Text not used by [place] Assessments - Encounter Diagnoses This section includes the primary and secondary diagnoses documented for the Encounter. Date/Time Primary/Secondary Diagnosis Diagnosis Name Provider Source Nov 16, 2022 11:41 AM PRIMARY Type 1 diabetes mellitus with diabetic neuropathy, ADDIE Rey [facility] ([facility]) Plan of Treatment: Future Appointments (+ 6 months) and Future Tests (+/- 45 days) The Plan of Treatment section includes future care activities for the patient from all [place] treatmentfacilities. This section includes future appointments and future orders which are active, pending or scheduled. Future Appointments This section includes appointments that were scheduled to occur 6 months from the date of the Encounter, up to a maximum of 20 appointments. The data comes from all [place] treatment facilities. Appointment Date/Time Appointment Type Appointme [...] 07, 2023 01:00 PM AMBULATORY - MEDICINE [facility] Feb 07, 2023 02:15 PM AMBULATORY - MEDICINE [facility] Feb 18, 2023 11:00 AM AMBULATORY - MEDICINE [facility] Feb 19, 2023 08:00 AM AMBULATORY - NONE [facility] ([facility]) Feb 22, 2023 01:30 PM AMBULATORY - MEDICINE [facility] ([facility]) Mar 04, 2023 02:30 PM AMBULATORY - MEDICINE [facility] Mar 12, 2023 11:30 AM AMBULATORY - NONE [facility] ([facility]) Apr 04, 2023 08:45 AM AMBULATORY - NONE [facility] ([facility]) Apr 09, 2023 01:45 PM AMBULATORY - NONE [facility] ([facility]) Apr 17, 2023 10:00 AM AMBULATORY - MEDICINE [facility] ([facility]) May 09, 2023 08:15 AM AMB[facility]ATORY - NONE [facility] ([facility]) May 09, 2023 08:45 AM AMBULATORY - NONE [facility] ([facility]) Lab Results: +/- 30 days of the encounter This section includes the Chemistry and Hematology Lab Results on record with [place] for the patient. Radiology Reports and Pathology Reports are provided separately, in subsequent sections. Lab Results This section contains the Chemistry/Hematology Results that were resulted 30 days before or 30 daysafter the date of the Encounter. Date/Time Source Result Type Result - Unit Interpretation Reference Range Comment December 11, 2022 11:53 AM [facility] ([facility]) QI WITH REFLEX TO ISABEL/DNA Specimen Type: SERUM No comment entered. Ordering Provider: ANURAG MADDOX Report Released Date/Time: December 11, 2022 11:49 AM Reporting Lab: [facility] [address] Performing Lab: [facility] [address] .ANTINUCLEAR ANDREW SPECKLED POSITIVE Negative .REJI TITER 1:160 TITER <1:80 December 11, 2022 11:53 AM [facility] ([facility]) URIC ACID Specimen Type: PLASMA No comment entered. Ordering Provider: ANURAG MADDOX Report Released Date/Time: December 11, 2022 11:49 AM Reporting Lab: [facility] [address] Performing Lab: [facility] [address] URIC ACID 2.9 L 3.5-7.2 December 11, 2022 11:53 AM [facility] ([facility]) ANTI-CCP Specimen Type: PLASMA No comment entered. Ordering Provider: ANURAG MADDOX Report Released Date/Time: December 11, 2022 11:49 AM Reporting Lab: [facility] [address] Performing Lab: [facility] [address] ANTI-CCP 0.6 <4.9 December 11, 2022 11:53 AM [facility] ([facility]) RHEUMATOID FACTOR Specimen Type: SERUM No comment entered. Ordering Provider: ANURAG MADDOX Report Released Date/Time: December 11, 2022 11:49 AM Reporting Lab: [facility] [address] Performing Lab: [facility] [address] RHEUMATOID FACTOR <13 <29 December 11, 2022 11:53 AM [facility] ([facility]) SED RATE Specimen Type: BLOOD No comment entered. Ordering Provider: ANURAG MADDOX Report Released Date/Time: December 11, 2022 11:49 AM Reporting Lab: [facility] [address] Performing Lab: [facility] [address] SED RATE 38 H 5-15 December 11, 2022 11:53 AM [facility] ([facility]) C-REACTIVE PROTEIN Specimen Type: PLASMA No comment entered. Ordering Provider: ANURAG MADDOX Report Released Date/Time: December 11, 2022 11:49 AM Reporting Lab: [facility] [address] Performing Lab: [facility] [address] C-REACTIVE PROTEIN 18.30 H <5.00 December 11, 2022 11:53 AM [facility] ([facility]) CBC Specimen Type: BLOOD No comment entered. Ordering Provider: ANURAG MADDOX Report Released Date/Time: December 11, 2022 11:49 AM Reporting Lab: [facility] [address] Performing Lab: [facility] [address] WBC 8.52 4.0-11.0 RBC 4.85 4.6-6.2 HGB 12.3 L 13.5-17.9 HCT 39.4 L 41-54 MCV 81.2 80-100 MCH 25.4 L 27-33 MCHC 31.2 L 32.0-37.5 PLT 499 H 150-400 MPV 9.1 7.4-10.4 RDW 15.4 H 11.5-14.5 December 11, 2022 11:53 AM [facility] ([facility]) ANTI-ISABEL PANEL([facility]) Specimen Type: SERUM Comment: QI WITH REFLEX TO ISABEL/DNA: IM [id number] 110 Reference Range: < 1.0 NEG AI Reference Range: < 1.0 NEG AI Reference Range: < 1.0 NEG AI Reference Range: < 1.0 NEG AI Reference Range: < 1.0 NEG AI Reference Range: < 1.0 NEG AI Test Performed by [facility], [facility], [address] [place], [place] M.D., Ph.D., Director of Laboratories , [facility] [id number] Ordering Provider: ANURAG MADDOX Report Released Date/Time: December 12, 2022 02:23 PM Reporting Lab: [facility] [address] Performing Lab: [facility] [address] [facility] ANTI-TADEO <1.0 ANTI-ENGINE MONITOR <1.0 ANTI-SSA/RO <1.0 ANTI-SSB/LA <1.0 ANTI-SCL-70 <1.0 ANTI-TAY-1 <1.0 December 11, 2022 11:53 AM [facility] ([facility]) B 12 Specimen Type: SERUM Comment: Specimen received is PLASMA. Ordering Provider: ANURAG MADDOX Report Released Date/Time: December 12, 2022 07:59 AM Reporting Lab: [facility] [address] Performing Lab: [facility] [address] B 12 916 H [phone] December 11, 2022 11:53 AM [facility] ([facility]) IRON GROUP Specimen Type: SERUM Comment: Specimen received is PLASMA. Ordering Provider: ANURAG MADDOX Report Released Date/Time: December 12, 2022 07:59 AM Reporting Lab: [facility] [address] Performing Lab: [facility] [address] IRON 30 L 65-175 TIBC,CALCULAT ED 264 250-425 FERRITIN 189.5 21.8-274.7 IRON SATURATION 11 L 20-50 TRANSFERRIN 211 163-382 December 11, 2022 11:53 AM [facility] ([facility]) FOLATE Specimen Type: SERUM Comment: Specimen received is PLASMA. Ordering Provider: ANURAG MADDOX Report Released Date/Time: December 12, 2022 07:59 AM Reporting Lab: [facility] [address] Performing Lab: [facility] [address] FOLATE 9.2 >7.0 Oct 22, 2022 01:51 PM [facility] BNP Specimen Type: PLASMA No comment entered. Ordering Provider: OSMANY RIVERA Report Released Date/Time: Oct 22, 2022 01:37 PM Reporting Lab: [facility] [address] Performing Lab: [facility] [address] BNP 105 H <99 Oct 22, 2022 01:51 PM [facility] LIPID PANEL,NON-FASTING Specimen Type: PLASMA No comment entered. Ordering Provider: OSMANY RIVERA Report Released Date/Time: Oct 22, 2022 01:37 PM Reporting Lab: [facility] [address] Performing Lab: [facility] [address] CHOLESTEROL 118 <199 .HDL 30 L >40 LDL CALCULATION 67 <99 VLDL CALCULATION 21 <29 NON HDL CHOLESTEROL 88 <129 TRIG(NON FASTING) 106 <149 Social History: Smoking Status (Most current) and Tobacco Use (All prior to encounter date) This section includes the most current, and the historical, smoking and tobacco- related health factors from the [place] facility where the Encounter took place. Current Smoking Status This section includes the most current smoking, or tobacco-related health factor, from the [place] facility where the Encounter took place. Date/Time Current Smoking Status Comment Facil ity Jul 12, 2022 09:45 AM VA-TOBACCO FORMER USER [facility] ([facility]) Tobacco Use History This section includes a history of the smoking, or tobacco-related health factors, that were collected on or before the date of the Encounter. The data comes from the [place] facility where the Encounter took place. Date/Time Smoking Status/Tobacco Use Comment F acility Jul 12, 2022 09:45 AM VA-TOBACCO QUIT 5 TO < 15 YRS [facility] ([facility]) Jul 13, 2021 09:15 AM VA-TOBACCO FORMER USER [facility] ([facility]) Jul 13, 2021 09:15 AM VA-TOBACCO QUIT 5 TO < 15 YRS [facility] ([facility]) Jun 28, 2020 09:15 AM VA-TOBACCO FORMER USER [facility] ([facility]) Jun 28, 2020 09:15 AM VA-TOBACCO QUIT 5 TO < 15 YRS [facility] ([facility]) Mar 23, 2019 03:20 PM VA-TOBACCO FORMER USER [facility] ([facility]) Mar 23, 2019 03:20 PM VA-TOBACCO QUIT 5 TO < 15 YRS [facility] ([facility]) Apr 01, 2018 02:59 PM VA-TOBACCO FORMER USER [facility] ([facility]) Apr 01, 2018 02:59 PM VA-TOBACCO QUIT 5 TO < 15 YRS [facility] ([facility]) Jun 28, 2017 01:51 PM FORMER TOBACCO USER 7Y OR GREATE R [facility] ([facility]) Jun 29, 2016 08:43 AM FORMER TOBACCO USE >1Y <7Y [facility] ([facility]) Radiology Reports: +/- 30 days of the [...] the Encounter. The data comes from all [place] treatment facilities. Date/Time Radiology Report Provider Source December 11, 2022 12:01 PM HAND LEFT 3 VIEWS OR MORE: KHOURYLUIS [id number] -1945 M Ex Date: DECEMBER 11, 2022@12:01 Req Phys: ANURAG MADDOX Loc: [facility] (Req'g Loc) Img Loc: [facility] Service: Unknown (Case 1175 COMPLETE) HAND LEFT 3 VIEWS OR MORE (RAD Detailed) CPT:73516 Proc Modifiers : LEFT Reason for Study: b/l hands pain Clinical History: [place] IS NOT under investigation for COVID-19 or [...] 11, 2022 Date Verified: DECEMBER 11, 2022 Tuft Machine Operator E-Sig:/ES/ADDIE PARMAR DO Report: EXAMINATION: HAND RIGHT [...] Primary Interpreting Staff: ADDIE PARMAR DO, RADIOLOGIST (Tuft Machine Operator) /KVNGS ADDIE PARMAR [facility] December 11, 2022 12:01 PM HAND RIGHT 3 VIEWS OR MORE: LUIS KHOURY [id number] -1945 M Exm Date: DECEMBER 11, 2022@12:01 Req Phys: ANURAG MADDOX Pat Loc: [facility] (Req'g Loc) Img Loc: [facility] Service: Unknown (Case 1174 COMPLETE) HAND RIGHT 3 VIEWS OR MORE (RAD Detailed) CPT:84906 Proc Modifiers : RIGHT Reason for Study: pain in both hands Clinical History: [place] IS NOT under investigation for COVID-19 or [...] 11, 2022 Date Verified: DECEMBER 11, 2022 Tuft Machine Operator E-Sig:/ES/ADDIE PARMAR DO Report: EXAMINATION: HAND RIGHT [...] Primary Interpreting Staff: ADDIE PARMAR DO, RADIOLOGIST (Tuft Machine Operator) /KVNGS ADDIE PARMAR [facility] Encounter Notes: All associated encounter notes This section contains the clinical notes associated to the Encounter. Date/Time Encounter Note(s) Provider Source Nov 16, 2022 11:34 AM PRIMARY CARE [facility] NOTE: LOCAL TITLE: [facility] NURSING PROGRESS NOTE STANDARD TITLE: PRIMARY CARE NURSING NOTE DATE OF NOTE: NOV 16, 2022@11:34 ENTRY DATE: NOV 16, 2022@11:34:35 AUTHOR: ADDIE HAQ COSIGNER: URGENCY: STATUS: COMPLETED [facility] NURSING PROGRESS NOTE Has ADDENDA EDUCATION: PARTICIPANT(s): Patient Diabetes Education Equipment Other (describe): CGM FOLLOW-UP RECOMMENDED Refer to other health care provider (specify): pharmacist CGM sensor placed on 's LUE today. CGM meter started and given education on sensor placement (every 14 days) and meter use. [place] indicated understanding. Alerting pharmacy for follow-up as needed. /debby Haq RN [facility] Signed: 11/16/2022 11:41 Receipt Acknowledged By: 11/16/2022 12:05 /debby Marely PharmD, BCACP PACT Pharmacy Home Based Assistant 11/16/2022 12:07 /debby Marley PharmD, BCACP PACT Pharmacy Home Based Assistant for HELEN AYON 11/16/2022 ADDENDUM STATUS: COMPLETED RTC placed for 11/30. /debby Marley PharmD, BCACP PACT Pharmacy Home Based Assistant Signed: 11/16/2022 12:06 ADDIE HAQ ([facility])
--- OUTSIDE RECORDS SUMMARY | 2023-08-14 09:38 | XMS_ITS | Encounter Summary ---
Author Name [facility] of [facility] Organization [facility] Address [address] [place] [address] Support Name Relationship Address Phone BREE KHOURY Next of Kin [address] [place] [address] BREE KHOURY Emergency Contact [address] [place] [address] Insurance Providers: All historical and [...] Name Patient's Relationship to Policy Vaughn [employer] [facility] (WNR) MEDICARE ADVANTAGE [facility] (R) Jul 29, 2021 [id number] KHOURY,WE SLEY PATIENT [employer] [facility] (WNR) MEDICARE ADVANTAGE [facility] (WNR) Jul 29, 2015 [id number] KHOURY,WE SLEY PATIENT [employer] [facility] (WNR) MEDICARE ADVANTAGE [facility] (WNR) Jul 29, 2015 [id number] KHOURY,WE SLEY PATIENT [employer] [facility] (WNR) MEDICARE ADVANTAGE [facility] (WNR) Jul 29, 2015 [id number] [phone] KHOURY,WE SLEY PATIENT Selected Encounter This section includes the information on record at [place] for the Encounter. Date/Time Encounter Type Encounter Description Reason Provider Source December 04, 2022 10:00 AM MT[facility] BY [facility] 15 MIN CLINICAL PHARMACY ICD-10-CM E10.40 Type 1 diabetes mellitus with diabetic neuropathy, unsp HELEN AYON Encounter Template Text not used by [facility] Assessments - Encounter Diagnoses This section includes the primary and secondary diagnoses documented for the Encounter. Date/Time Primary/Secondary Diagnosis Diagnosis Name Provider Source December 04, 2022 03:45 PM PRIMARY Type 1 diabetes mellitus with diabetic neuropathy, unsp HELEN AYON ([facility]) Plan of Treatment: Future Appointments (+ 6 months) and Future Tests (+/- 45 days) The Plan of Treatment section includes future care activities for the patient from all [place] treatmentfacilities. This section includes future appointments and future orders which are active, pending or scheduled. Future Appointments This section includes appointments that were scheduled to occur 6 months from the date of the Encounter, up to a maximum of 20 appointments. The data comes from all [place] treatment facilities. Appointment Date/Time Appointment Type Appointme nt Facility Name December 11, 2022 11:30 AM AMBULATORY - [...] 07, 2023 01:00 PM AMBULATORY - MEDICINE [facility] Feb 07, 2023 02:15 PM AMBULATORY - MEDICINE [facility] Feb 18, 2023 11:00 AM AMBULATORY - MEDICINE [facility] Feb 19, 2023 08:00 AM AMBULATORY - NONE [facility] ([facility]) Feb 22, 2023 01:30 PM AMBULATORY - MEDICINE [facility] ([facility]) Mar 04, 2023 02:30 PM AMBULATORY - MEDICINE [facility] Mar 12, 2023 11:30 AM AMBULATORY - [...] - Unit Interpretation Reference Range Comment Jan 01, 2023 03:37 PM [facility]) HEMOGLOBIN A1C Specimen Type: BLOOD [...] Jan 01, 2023 03:34 PM Reporting Lab: [facility] [id number] Performing Lab: [facility] [id number] HEMOGLOBIN A1C 8.6 H 4.0-6.0 December 11, 2022 11:53 AM [facility]) QI WITH REFLEX TO ISABEL/DNA Specimen Type: SERUM No comment entered. Ordering Provider: ANURAG MADDOX Report Released Date/Time: December 11, 2022 11:49 AM Reporting Lab: [facility] [id number] Performing Lab: [facility] [phone] .ANTINUCLEAR ANDREW SPECKLED POSITIVE Negative .REJI TITER 1:160 TITER <1:80 December 11, 2022 11:53 AM [place] [facility]) URIC ACID Specimen Type: PLASMA No comment entered. Ordering Provider: ANURAG MADDOX Report Released Date/Time: December 11, 2022 11:49 AM Reporting Lab: [facility] [phone] Performing Lab: [facility] [address] URIC ACID 2.9 L 3.5-7.2 December 11, 2022 11:53 AM [facility]) ANTI-CCP Specimen Type: PLASMA No comment entered. Ordering Provider: ANURAG MADDOX Report Released Date/Time: December 11, 2022 11:49 AM Reporting Lab: [facility] [phone] Performing Lab: [facility] [address] ANTI-CCP 0.6 <4.9 December 11, 2022 11:53 AM [facility] ([facility]) RHEUMATOID FACTOR Specimen Type: SERUM No comment entered. Ordering Provider: ANURAG MADDOX Report Released Date/Time: December 11, 2022 11:49 AM Reporting Lab: [facility] [phone] Performing Lab: [facility] [address] RHEUMATOID FACTOR <13 <29 December 11, 2022 11:53 AM [facility] ([facility]) SED RATE Specimen Type: BLOOD No comment entered. Ordering Provider: ANURAG MADDOX Report Released Date/Time: December 11, 2022 11:49 AM Reporting Lab: [facility] [phone] Performing Lab: [facility] [address] SED RATE 38 H 5-15 December 11, 2022 11:53 AM [facility] ([facility]) C-REACTIVE PROTEIN Specimen Type: PLASMA No comment entered. Ordering Provider: ANURAG MADDOX Report Released Date/Time: December 11, 2022 11:49 AM Reporting Lab: [facility] [phone] Performing Lab: [facility] [address] C-REACTIVE PROTEIN 18.30 H <5.00 December 11, 2022 11:53 AM [facility] ([facility]) CBC Specimen Type: BLOOD No comment entered. Ordering Provider: ANURAG MADDOX Report Released Date/Time: December 11, 2022 11:49 AM Reporting Lab: [facility] [address] Performing Lab: [facility] [address] WBC 8.52 4.0-11.0 RBC 4.85 4.6-6.2 HGB 12.3 L 13.5-17.9 HCT 39.4 L 41-54 MCV 81.2 80-100 MCH 25.4 L 27-33 MCHC 31.2 L 32.0-37.5 PLT 499 H 150-400 MPV 9.1 7.4-10.4 RDW 15.4 H 11.5-14.5 December 11, 2022 11:53 AM [facility] ([facility]) ANTI-ISABEL PANEL([employer]) Specimen Type: SERUM Comment: QI WITH REFLEX TO ISABEL/DNA: IM [id number] 110 Reference Range: < 1.0 NEG AI Reference Range: < 1.0 NEG AI Reference Range: < 1.0 NEG AI Reference Range: < 1.0 NEG AI Reference Range: < 1.0 NEG AI Reference Range: < 1.0 NEG AI Test Performed by [employer] [place], [facility], [address] [place] [address] [place] M.D., Ph.D., Director of Laboratories , [place] [id number] Ordering Provider: ANURAG MADDOX Report Released Date/Time: December 12, 2022 02:23 PM Reporting Lab: [facility] [address] Performing Lab: [address] ANTI-TADEO <1.0 ANTI-SHIPPING AND RECEIVING SUPERVISOR <1.0 ANTI-SSA/RO <1.0 ANTI-SSB/LA <1.0 ANTI-SCL-70 <1.0 ANTI-TAY-1 <1.0 December 11, 2022 11:53 AM [facility] [facility]) B 12 Specimen Type: SERUM Comment: Specimen received is PLASMA. Ordering Provider: ANURAG MADDOX Report Released Date/Time: December 12, 2022 07:59 AM Reporting Lab: [facility] [address] Performing Lab: [facility] [address] B 12 916 H 213-816 December 11, 2022 11:53 AM [facility] ([facility]) IRON GROUP Specimen Type: SERUM Comment: Specimen received is PLASMA. Ordering Provider: ANURAG MADDOX Report Released Date/Time: December 12, 2022 07:59 AM Reporting Lab: [facility] [address] Performing Lab: [facility] [address] IRON 30 L 65-175 TIBC,CALCULAT ED 264 250-425 FERRITIN 189.5 21.8-274.7 IRON SATURATION 11 L 20-50 TRANSFERRIN 211 163-382 December 11, 2022 11:53 AM [facility] [facility]) FOLATE Specimen Type: SERUM Comment: Specimen received is PLASMA. Ordering Provider: ANURAG MADDOX Report Released Date/Time: December 12, 2022 07:59 AM Reporting Lab: [facility] [phone] Performing Lab: [facility] [address] FOLATE 9.2 >7.0 Social History: Smoking Status (Most current) and Tobacco Use (All prior to encounter date) This section includes the most current, and the historical, smoking and tobacco- related health factors from the [place] facility where the Encounter took place. Current Smoking Status This section includes the most current smoking, or tobacco-related health factor, from the [place] facility where the Encounter took place. Date/Time Current Smoking Status Comment Facil ity Jul 12, 2022 09:45 AM [facility]-TO[facility]ACCO FORMER USER [facility] ([facility]) Tobacco Use History This section includes a history of the smoking, or tobacco-related health factors, that were collected on or before the date of the Encounter. The data comes from the [place] facility where the Encounter took place. Date/Time Smoking Status/Tobacco Use Comment F acility Jul 12, 2022 09:45 AM VA-TOBACCO QUIT 5 TO < 15 YRS [facility] ([facility]) Jul 13, 2021 09:15 AM VA-TOBACCO FORMER USER [facility] ([facility]) Jul 13, 2021 09:15 AM VA-TOBACCO QUIT 5 TO < 15 YRS [facility] ([facility]) Jun 28, 2020 09:15 AM VA-TOBACCO FORMER USER [facility] ([facility]) Jun 28, 2020 09:15 AM VA-TOBACCO QUIT 5 TO < 15 YRS [facility] ([facility]) Mar 23, 2019 03:20 PM VA-TOBACCO FORMER USER [facility] ([facility]) Mar 23, 2019 03:20 PM VA-TOBACCO QUIT 5 TO < 15 YRS [facility] ([facility]) Apr 01, 2018 02:59 PM VA-TOBACCO FORMER USER [facility] ([facility]) Apr 01, 2018 02:59 PM VA-TOBACCO QUIT 5 TO < 15 YRS [facility] ([facility]) Jun 28, 2017 01:51 PM FORMER TOBACCO USER 7Y OR GREATE R [facility] ([facility]) Jun 29, 2016 08:43 AM FORMER TOBACCO USE >1Y <7Y [facility] ([facility]) Radiology Reports: +/- 30 days of [...] the Encounter. The data comes from all [place] treatment facilities. Date/Time Radiology Report Provider Source December 11, 2022 12:01 PM HAND RIGHT 3 VIEWS OR MORE: LUIS KHOURY [id number] -1945 M Exm Date: DECEMBER 11, 2022@12:01 Req Phys: ANURAG MADDOX Pat Loc: [facility] (Req'g Loc) Img Loc: [facility] Service: Unknown (Case [id number] COMPLETE) HAND RIGHT 3 VIEWS OR MORE (RAD Detailed) CPT:66551 Proc Modifiers : RIGHT Reason for Study: [...] 11, 2022 Date Verified: DECEMBER 11, 2022 Seal Skinner E-Sig:/ES/ADDIE PARMAR DO Report: EXAMINATION: HAND RIGHT [...] Primary Interpreting Staff: ADDIE PARMAR DO, RADIOLOGIST (Seal Skinner) /DDS ADDIE PARMAR [facility] December 11, 2022 12:01 PM HAND LEFT 3 VIEWS OR MORE: LUIS KHOURY [id number] -1945 M Exm Date: DECEMBER 11, 2022@12:01 Req Phys: ANURAG MADDOX Pat Loc: [facility] (Req'g Loc) Img Loc: [facility] Service: Unknown (Case [id number] COMPLETE) HAND LEFT 3 VIEWS OR MORE (RAD Detailed) CPT:27669 Proc Modifiers : LEFT Reason for Study: b/l hands pain Clinical History: [place] IS NOT under investigation for COVID-19 or [...] 11, 2022 Date Verified: DECEMBER 11, 2022 Seal Skinner E-Sig:/ES/ADDIE PARMAR DO Report: EXAMINATION: HAND RIGHT [...] Primary Interpreting Staff: ADDIE PARMAR DO, RADIOLOGIST (Seal Skinner) /KVNGS ADDIE PARMAR [facility] Encounter Notes: All associated encounter notes This section contains the clinical notes associated to the Encounter. Date/Time Encounter Note(s) Provider Source December 04, 2022 10:14 AM PHARMACY NOTE: LOCAL TITLE: PHARMACOTHERAPY-CLINICAL PHARMACY NOTE STANDARD TITLE: PHARMACY NOTE DATE OF NOTE: DECEMBER 04, 2022@10:14 ENTRY DATE: DECEMBER 04, 2022@10:14:54 AUTHOR: HELEN AYON COSIGNER: URGENCY: STATUS: COMPLETED Visit Type: In-Clinic LUIS KHOURY is a 77 YO followed by [facility] for medication management. Patient presents in clinic with his , Bree. SUBJECTIVE: mariam has had several times in the past few weeks when CGM alarmed for hypoglycemia. Requests CGM teaching be provided to his , Bree, as arthritis limits his ability to place CGM sensor. Lifestyle: increased arthritis pain in shoulders, hips, knees, and hands *diclofenac gel and movement helpful for managing ROS: (-) hypoglycemia symptoms (-) hyperglycemia symptoms Freestyle Madeline 2 Report Summary 11/17/22-11/30/22 Avg BG= 190mg/dL *above target(>180mg/dl)= 50% *below target(<70mg/dl)= 0% *in target(70-180mg/dl)= 50% scans per day= 17 sensor data captured: 98% predicted A1C: 7.9% Top trends: -Daytime elevations with some periods of near hypoglycemia -Mostly in range overnight with several episodes of near hypoglycemia Adherence to medications: denies missed doses OBJECTIVE: [...] FOR EXCESS FLUID 8) INSULIN,ASPART(EQV-NOVLG)100UN/ML FLXPEN INJECT 10 ACTIVE UNITS UNDER THE SKIN THREE TIMES A DAY WITH MEALS FOR DIABETES - SKIP DOSE IF NOT EATING Taking 14 units 9) INSULIN,GLARGINE 100 UNT/ML 3ML SOLOSTAR INJECT 55 ACTIVE UNITS UNDER THE SKIN EVERY MORNING FOR DIABETES taking 50 units 10) LOSARTAN 50MG TAB TAKE ONE TABLET BY MOUTH EVERY DAY ACTIVE 11) METFORMIN HCL 1000MG TAB TAKE ONE TABLET BY MOUTH ACTIVE (S) EVERY MORNING FOR DIABETES 12) METOPROLOL SUCCINATE 50MG SA TAB TAKE ONE TABLET BY ACTIVE MOUTH EVERY DAY FOR HEART PROTECTION 13) NITROGLYCERIN 0.4MG SL TAB DISSOLVE ONE TABLET UNDER ACTIVE THE TONGUE EVERY 5 MINUTES FOR UP TO 3 DOSES IF NEEDED FOR CHEST PAIN Active Non-VA Medications Status ======= 1) Non-VA CYCLOBENZAPRINE HCL 10MG TAB 10MG MOUTH THREE ACTIVE TIMES A DAY NEEDED 14 Total Medications Height: 67.5 in [171.5 cm] (09/04/2022 11:01) Weight: 199.1 lb [90.31 kg] (10/22/2022 12:09) BMI: 30.8 LABS: Basic Metabolic Panel SODIUM 140 (10/01/22) [...] than 7% if can achieve without hypoglycemia [place] with ongoing variability in BGs with several episodes of near hypoglycemia both at midday and overnight (more frequently during the late afternoon). Will make slight adjustment in bolus coverage. Counseled if overnight hypoglycemia continues to reduce basal insulin. Talked Bree through CGM sensor application in-clinic, she was able to apply appropriately and is willing to assist with CGM removal and placement going forward. -CHANGE insulin aspart to 12 units before meals + 1 additional unit for every 50 over 150, max of 16 units per dose -CHANGE insulin glargine to Semglee, if having low BGs overnight reduce to 45 units #Disease-Specific Med Rec: Completed today #Labs: -Upcoming A1c w/ PCP appt on 01/01 - Educated vet on indication/risks/benefits of new/changed medication. - Education provided on therapeutic nonpharmacologic management to achieve goals. - Vet advised of upcoming labs. - [place] verbalized understanding to all plans discussed today. Questions were answered to vet's satisfaction. Time spent: 30 minutes RTC: January 01 @ 1400 in-clinic /hi/ HELEN AYON PH[place]MD[place] [facility] [place] [facility] Signed: 12/04/2022 15:50 HELEN AYON ([facility])
--- OUTSIDE RECORDS SUMMARY | 2023-08-14 09:38 | XMS_ITS | Encounter Summary ---
Author Name [facility] Organization [facility] Address [address] [place] [id number] Support Name Relationship Address Phone BREE KHOURY Next of Kin [address] [place] [address] BREE KHOURY Emergency Contact [address] [place] [address] Insurance Providers: All historical and [...] Name Patient's Relationship to Policy Vaughn [employer]MANA [facility] (WNR) MEDICARE ADVANTAGE [facility] ([facility]) Jul 29, 2021 [id number] [phone] KHOURY,WE SLEY PATIENT [employer] MCR (WNR) MEDICARE ADVANTAGE [facility] (WNR) Jul 29, 2015 [id number] KHOURY,WE SLEY PATIENT [employer] MCR (WNR) MEDICARE ADVANTAGE [facility] (WNR) Jul 29, 2015 [id number] [phone] KHOURY,WE SLEY PATIENT [employer] MCR (WNR) MEDICARE ADVANTAGE [facility] (WNR) Jul 29, 2015 [id number] KHOURY,WE SLEY PATIENT Selected Encounter This section includes the information on record at NH for the Encounter. Date/Time Encounter Type Encounter Description Reason Provider Source December 11, 2022 11:30 AM OFFICE O/P EST LOW 20-29 MIN PRIMARY CARE/MEDICINE ICD-10-CM M79.643 Pain in unspecified hand ALBARO RIVERA Encounter Template Text not used by NH Assessments - Encounter Diagnoses This section includes the primary and secondary diagnoses documented for the Encounter. Date/Time Primary/Secondary Diagnosis Diagnosis Name Provider Source December 11, 2022 12:07 PM PRIMARY Pain in unspecified hand ALBARO RIVERA [place] ([facility]) Plan of Treatment: Future Appointments (+ 6 months) and Future Tests (+/- 45 days) The Plan of Treatment section includes future care activities for the patient from all NH treatmentfacilities. This section includes future appointments and future orders which are active, pending or scheduled. Future Appointments This section includes appointments that were scheduled to occur 6 months from the date of the Encounter, up to a maximum of 20 appointments. The data comes from all NH treatment facilities. Appointment Date/Time Appointment Type Appointme nt Facility Name Jan 01, 2023 02:00 PM AMBULATORY - NONE [facility] ([facility]) Jan 01, 2023 02:30 PM [facility] - [facility]ICINE [facility] ([facility]) Jan 09, 2023 11:30 AM [facility] - [facility]ICINE [facility] ([facility]) Jan 16, 2023 10:00 AM [facility] - [facility]ICINE [facility] ([facility]) Feb 05, 2023 10:00 AM AMBULATORY - NONE [facility] ([facility]) Feb 07, 2023 01:00 PM AM[facility]ULATORY [facility] MEDICINE [facility] Feb 07, 2023 02:15 PM AMBULATORY - MEDICINE [facility] Feb 18, 2023 11:00 AM AMBULATORY - MEDICINE [facility] Feb 19, 2023 08:00 AM AMBULATORY - NONE [facility] ([facility]) Feb 22, 2023 01:30 PM [facility]BULATORY - MEDICINE [facility] ([facility]) Mar 04, 2023 02:30 PM AMBULATORY - MEDICINE [facility] Mar 12, 2023 11:30 AM AMBULATORY - [...] 08:45 AM AMBULATORY - NONE [facility] ([facility]) Lab Results: +/- 30 days of the encounter This section includes the Chemistry and Hematology Lab Results on record with NH for the patient. Radiology Reports and Pathology Reports are provided separately, in subsequent sections. Lab Results This section contains the Chemistry/Hematology Results that were resulted 30 days before or 30 daysafter the date of the Encounter. Date/Time Source Result Type Result - Unit Interpretation Reference Range Comment Jan 09, 2023 12:17 PM [place] ([facility]) C-REACTIVE PROTEIN Specimen Type: PLASMA No comment entered. Ordering Provider: ADITYA DEVINE Report Released Date/Time: Jan 09, 2023 12:11 PM Reporting Lab: [facility] [id number] Performing Lab: [facility] [id number] C-REACTIVE PROTEIN 0.88 See_Comment Jan 09, 2023 12:17 PM [place] ([facility]) SED RATE Specimen Type: BLOOD No comment entered. Ordering Provider: ADITYA DEVINE Report Released Date/Time: Jan 09, 2023 12:11 PM Reporting Lab: [facility] [phone] Performing Lab: [facility] [phone] SED RATE 20 H 5-15 Jan 01, 2023 03:37 PM [place] ([facility]) HEMOGLOBIN A1C Specimen Type: BLOOD Comment: Values obtained from A1C measurements can vary. For typical A1C assays, a reported value of 7.0 could actually be between 6.7 and 7.3 if measured by a reference method. A reported value of 9.0 could actually be between 8.7 and 9.3. Ref: http://www.ngs p.org/CAPdata. asp Ordering Provider: ADITYA DEVINE Report Released Date/Time: Jan 01, 2023 03:34 PM Reporting Lab: [facility] [phone] Performing Lab: [facility] [id number] HEMOGLOBIN A1C 8.6 H 4.0-6.0 December 11, 2022 11:53 AM [place] ([facility]) QI WITH REFLEX TO ISABEL/DNA Specimen Type: SERUM No comment entered. Ordering Provider: ALBARO RIVERA Report Released Date/Time: December 11, 2022 11:49 AM Reporting Lab: [facility] [address] Performing Lab: [facility] [phone] .ANTINUCLEAR ANDREW SPECKLED POSITIVE See_Comment .REJI TITER 1:160 See_Comment December 11, 2022 11:53 AM [facility] ([facility]) URIC ACID Specimen Type: PLASMA No comment entered. Ordering Provider: ALBARO RIVERA Report Released Date/Time: December 11, 2022 11:49 AM Reporting Lab: [facility] [id number] Performing Lab: [facility] [phone] URIC ACID 2.9 L 3.5-7.2 December 11, 2022 11:53 AM [facility] ([facility]) ANTI-CCP Specimen Type: PLASMA No comment entered. Ordering Provider: ALBARO RIVERA Report Released Date/Time: December 11, 2022 11:49 AM Reporting Lab: [facility] [id number] Performing Lab: [facility] [address] ANTI-CCP 0.6 <4.9 December 11, 2022 11:53 AM [place] ([facility]) RHEUMATOID FACTOR Specimen Type: SERUM No comment entered. Ordering Provider: ALBARO RIVERA Report Released Date/Time: December 11, 2022 11:49 AM Reporting Lab: [facility] [phone] Performing Lab: [facility] [address] RHEUMATOID FACTOR <13 <29 December 11, 2022 11:53 AM [place] ([facility]) SED RATE Specimen Type: BLOOD No comment entered. Ordering Provider: ALBARO RIVERA Report Released Date/Time: December 11, 2022 11:49 AM Reporting Lab: [facility] [phone] Performing Lab: [facility] [address] SED RATE 38 H 5-15 December 11, 2022 11:53 AM [place] ([facility]) C-REACTIVE PROTEIN Specimen Type: PLASMA No comment entered. Ordering Provider: ALBARO RIVERA Report Released Date/Time: December 11, 2022 11:49 AM Reporting Lab: [facility] [phone] Performing Lab: [facility] [phone] C-REACTIVE PROTEIN 18.30 H <5.00 December 11, 2022 11:53 AM [facility] ([facility]) CBC Specimen Type: BLOOD No comment entered. Ordering Provider: ALBARO RIVERA Report Released Date/Time: December 11, 2022 11:49 AM Reporting Lab: [facility] [phone] Performing Lab: [facility] [address] WBC 8.52 4.0-11.0 RBC 4.85 4.6-6.2 HGB 12.3 L 13.5-17.9 HCT 39.4 L 41-54 MCV 81.2 80-100 MCH 25.4 L 27-33 MCHC 31.2 L 32.0-37.5 PLT 499 H 150-400 MPV 9.1 7.4-10.4 RDW 15.4 H 11.5-14.5 December 11, 2022 11:53 AM [place] ([facility]) ANTI-ISABEL PANEL([employer]) Specimen Type: SERUM Comment: QI WITH REFLEX TO ISABEL/DNA: IM 0516 110 Reference Range: < 1.0 NEG AI Reference Range: < 1.0 NEG AI Reference Range: < 1.0 NEG AI Reference Range: < 1.0 NEG AI Reference Range: < 1.0 NEG AI Reference Range: < 1.0 NEG AI Test Performed by [facility], [address] [place] [address] [place] M.D., Ph.D., Director of Laboratories , [place] [id number] Ordering Provider: ALBARO RIVERA Report Released Date/Time: December 12, 2022 02:23 PM Reporting Lab: [facility] [phone] Performing Lab: [address] ANTI-TADEO <1.0 ANTI-EXHAUSTER <1.0 ANTI-SSA/RO <1.0 ANTI-SSB/LA <1.0 ANTI-SCL-70 <1.0 ANTI-TAY-1 <1.0 December 11, 2022 11:53 AM [place] ([facility]) B 12 Specimen Type: SERUM Comment: Specimen received is PLASMA. Ordering Provider: ALBARO RIVERA Report Released Date/Time: December 12, 2022 07:59 AM Reporting Lab: [facility] [phone] Performing Lab: [facility] [address] B 12 916 H 213-816 December 11, 2022 11:53 AM [place] ([facility]) FOLATE Specimen Type: SERUM Comment: Specimen received is PLASMA. Ordering Provider: ALBARO RIVERA Report Released Date/Time: December 12, 2022 07:59 AM Reporting Lab: [facility] [address] Performing Lab: [facility] [address] FOLATE 9.2 >7.0 December 11, 2022 11:53 AM [place] ([facility]) IRON GROUP Specimen Type: SERUM Comment: Specimen received is PLASMA. Ordering Provider: ALBARO RIVERA Report Released Date/Time: December 12, 2022 07:59 AM Reporting Lab: [facility] [phone] Performing Lab: [facility] [phone] IRON 30 L 65-175 TIBC,CALCULAT ED 264 250-425 FERRITIN 189.5 21.8-274.7 IRON SATURATION 11 L 20-50 TRANSFERRIN 211 163-382 Vital Signs: All taken on the encounter date This section contains inpatient and outpatient Vital Signs collected on the date of the Encounter. Date/Time Temperature Pulse Blood Pressure Respiratory Rate SP02 Pain Height Weight Body Mass Index Source December 11, 2022 11:32 AM 144/72 mm[Hg] [facility] ([facility]) December 11, 2022 11:28 AM 97.3 F 74 /min 158/73 mm[Hg] 14 /min 96 % 7 193 lb 30 [facility] ([facility]) Social History: Smoking Status (Most current) and Tobacco Use (All prior to encounter date) This section includes the most current, and the historical, smoking and tobacco- related health factors from the NH facility where the Encounter took place. Current Smoking Status This section includes the most current smoking, or tobacco-related health factor, from the NH facility where the Encounter took place. Date/Time Current Smoking Status Comment Facil ity Jul 12, 2022 09:45 AM VA-TOBACCO FORMER USER [place] ([facility]) Tobacco Use History This section includes a history of the smoking, or tobacco-related health factors, that were collected on or before the date of the Encounter. The data comes from the NH facility where the Encounter took place. Date/Time Smoking Status/Tobacco Use Comment F acility Jul 12, 2022 09:45 AM VA-TOBACCO QUIT 5 TO < 15 YRS [place] ([facility]) Jul 13, 2021 09:15 AM VA-TOBACCO FORMER USER [place] ([facility]) Jul 13, 2021 09:15 AM VA-TOBACCO QUIT 5 TO < 15 YRS [place] ([facility]) Jun 28, 2020 09:15 AM VA-TOBACCO FORMER USER [place] ([facility]) Jun 28, 2020 09:15 AM VA-TOBACCO QUIT 5 TO < 15 YRS [place] ([facility]) Mar 23, 2019 03:20 PM VA-TOBACCO FORMER USER [place] ([facility]) Mar 23, 2019 03:20 PM VA-TOBACCO QUIT 5 TO < 15 YRS [place] ([facility]) Apr 01, 2018 02:59 PM VA-TOBACCO FORMER USER [place] ([facility]) Apr 01, 2018 02:59 PM VA-TOBACCO QUIT 5 TO < 15 YRS [place] ([facility]) Jun 28, 2017 01:51 PM FORMER TOBACCO USER 7Y OR GREATE R [place] ([facility]) Jun 29, 2016 08:43 AM FORMER TOBACCO USE >1Y <7Y [place] ([facility]) Radiology Reports: +/- 30 days of [...] the Encounter. The data comes from all NH treatment facilities. Date/Time Radiology Report Provider Source December 11, 2022 12:01 PM HAND LEFT 3 VIEWS OR MORE: LUIS KHOURY [id number] -1945 M Exm Date: DECEMBER 11, 2022@12:01 Req Phys: ALBARO RIVERA Pat Loc: [facility] (Req'g Loc) Img Loc: [facility] Service: Unknown (Case [id number] COMPLETE) HAND LEFT 3 VIEWS OR MORE (RAD Detailed) CPT:54254 Proc Modifiers : LEFT Reason for Study: [...] 11, 2022 Date Verified: DECEMBER 11, 2022 Windshield Installer E-Sig:/ES/ADDIE PARMAR DO Report: EXAMINATION: HAND RIGHT [...] Primary Interpreting Staff: ADDIE PARMAR DO, RADIOLOGIST (Windshield Installer) /DDS ADDIE PARMAR [facility] December 11, 2022 12:01 PM HAND RIGHT 3 VIEWS OR MORE: LUIS KHOURY [id number] -1945 M Exm Date: DECEMBER 11, 2022@12:01 Req Phys: ALBARO RIVERA Pat Loc: [facility] (Req'g Loc) Img Loc: [facility] Service: Unknown (Case [id number] COMPLETE) HAND RIGHT 3 VIEWS OR MORE (RAD Detailed) CPT:45451 Proc Modifiers : RIGHT Reason for Study: pain in both hands Clinical History: [place] IS NOT under investigation for COVID-19 or [...] 11, 2022 Date Verified: DECEMBER 11, 2022 Windshield Installer E-Sig:/ES/ADDIE PARMAR DO Report: EXAMINATION: HAND RIGHT [...] Primary Interpreting Staff: ADDIE PARMAR DO, RADIOLOGIST (Windshield Installer) /DDS ADDIE PARMAR [facility] Encounter Notes: All associated encounter notes This section contains the clinical notes associated to the Encounter. Date/Time Encounter Note(s) Provider Source December 18, 2022 08:23 AM LETTERS: LOCAL TITLE: FOLLOW UP RESULTS LETTER STANDARD TITLE: LETTERS DATE OF NOTE: DECEMBER 18, 2022@08:23 ENTRY DATE: DECEMBER 18, 2022@08:23:53 AUTHOR: ALBARO RIVERA COSIGNER: URGENCY: STATUS: COMPLETED [facility] [address] [place] [address] November LUIS AMELIA KHOURY [address] [facility] [address] Dear : I am writing to inform you of the results of the tests you had done at the [facility]. The tests below were performed and are satisfactory unless otherwise noted. Collection time: December 11, 2022@11:53 Test Name Result Units Range --------- ------ ----- ----- ANTI-TADEO <1.0 ANTI-EXHAUSTER <1.0 ANTI-SSA/RO <1.0 ANTI-SSB/LA <1.0 ANTI-SCL-70 <1.0 ANTI-TAY-1 <1.0 Comments: above specific antibodies are negative. If you have any further questions or problems, please contact our nursing staff or me at the following number: [phone] ([place]) Sincerely, Albaro Rivera MD Physician [facility] ALBARO RIVERA ([facility]) December 12, 2022 04:24 PM REPORT OF CONTACT: LOCAL TITLE: PATIENT CONTACT NOTE STANDARD TITLE: REPORT OF CONTACT DATE OF NOTE: DECEMBER 12, 2022@16:24 ENTRY DATE: DECEMBER 12, 2022@16:25:06 AUTHOR: ALBARO RIVERA EXP COSIGNER: URGENCY: STATUS: COMPLETED Call to patient and his is with him. he asked his to pass the messages to him. notified him that we sill send the result letter and recommendations. /es/ Albaro Rivera MD Physician [facility] Signed: 12/12/2022 16:26 ALBARO RIVERA ([facility]) December 11, 2022 02:01 PM LETTERS: LOCAL TITLE: FOLLOW UP RESULTS LETTER STANDARD TITLE: LETTERS DATE OF NOTE: DECEMBER 11, 2022@14:01 ENTRY DATE: DECEMBER 11, 2022@14:01:12 AUTHOR: ALBARO RIVERA EXP COSIGNER: URGENCY: STATUS: COMPLETED [facility] [address] [place] [address] November LUIS KHOURY [address] [facility] [address] Dear [place]: I am writing to inform you of the results of the tests you had done at the [facility]. The tests below were performed and are satisfactory unless otherwise noted. - Complete Blood Count (red/white blood cell counts and platelets) White count: WBC 8.52 (12/11/22) (normal is 4.0-11.0) Hemoglobin: HGB 12.3 L (12/11/22) (normal Male is 13.5-17.9) (normal Female is 11.5-16) Hematocrit: HCT 39.4 L (12/11/22) (normal Male is 41-54) (normal Female is 34.5-48) Platelets: PLT 499 H (12/11/22) (normal is 150-400) - Vitamin B12/Folate Level SLT - Lab Tests Selected Collection DT Specimen Test Name Result Units Ref Range 12/11/2022 11:53 SERUM !! B 12 916 H pg/mL 213 - 816 12/11/2022 11:53 SERUM !! FOLATE 9.2 ng/mL Ref: >=7.0 - Iron Studies IRON 30 L (12/11/22) (Normal male 65-175) TIBC,CALCULATED 264 (12/11/22) (Normal is 250-425) IRON SATURATION 11 L (12/11/22) (Normal male 20-50) TRANSFERRIN 211 (12/11/22) (Normal is 181-331) FERRITIN 189.5 (12/11/22) (Normal is 10.0-250.0) - Uric Acid Level URIC ACID 2.9 L (12/11/22) (normal male 3.5-7.2) Specimen Collection Date: December 11, 2022@11:53 Test name Result units Ref. range SED RATE 38 H mm/hr 5 - 15 C-REACTIVE PROTEIN 18.30 H mg/L Ref: <=5.00 ANTI-CCP 0.6 U/mL Ref: <=4.9 RHEUMATOID FACTOR <13 IU/mL Ref: <=29 Test Name Result Units Range --------- ------ ----- ----- .ANTINUCLEAR ANDREW SPECKLED-POS Ref: Negative .REJI TITER 1:160 Ref: TITER <1:80 EXAMINATION: HAND RIGHT 3 VIEWS OR MORE, HAND LEFT 3 VIEWS OR MORE 12/11/2022 12:01 PM Impression: Right hand: No acute fracture or [...] the third digit. No definite erosive changes. Comments: xray of hands and labs show possible inflammatory arthritis. one blood work result is pending. once we have the result, will get rheumatology consult. anemia: hemoglobin was 13.3 in 09/2022 and now 12.3. iron and iron saturation is slightly low but ferritin level is good. it could be anemia due to chronic disease, you may also has mild iron deficiency. usually we recommend gastroenterology consult for possible endoscopy/colonoscopy, however, you may not be able to get it soon since you are on Plavix for recent stents placement. please contact us if you notice any blood in stool. will monitor blood cell count closely for now. you have an appointment on 01/01/[address] Devine. should repeat blood cell counts at that time If you have any further questions or problems, please contact our nursing staff or me at the following number: [phone] ([place]) Sincerely, Albaro Rivera MD Physician [facility] ALBARO RIVERA ([facility]) December 11, 2022 11:39 AM PRIMARY CARE NOTE: LOCAL TITLE: [facility] PROGRESS NOTE-[place] STANDARD TITLE: PRIMARY CARE NOTE DATE OF NOTE: DECEMBER 11, 2022@11:39 ENTRY DATE: DECEMBER 11, 2022@11:39:29 AUTHOR: ALBARO RIVERA EXP COSIGNER: URGENCY: STATUS: COMPLETED HPI: 77 years old MALE with PMH of listed below presents today for swelling of right arm and hand. he reports he has had chronic pain in both hands. Once he had left forearm, wrist and hand swelling for which he went to [facility]. he was given some pills and then it got better. reports he woke up this morning and noticed increasing pain and swelling from right forearm to right hand. a little red and warm per the patient. he applied some ice and reports the swelling has decreased a lot. now similar to left side. 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 he has diclofenac gel and he has been using it to his arms/hands to. not very effective. reports edema in LEs about the same. no significant dyspnea. Past Medical History: Active problems - Computerized Problem List is the source for the followin. Hypertensive disorder 2. Mixed hyperlipidemia 3. Pernicious anemia 4. History of adenomatous polyp of colon 5. History of tobacco use 6. Multiple nodules of lung 7. 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 CAD - Coronary Artery Disease ([facility] [id number]) - 09/22/2022 stemi with 2 stents 9. CHF - Congestive Heart Failure ([facility] [id number]) 10. Aortic valve stenosis - mild 09/2022 11. Type 1 diabetes mellitus REVIEW OF SYSTEMS: Negative except for issues associated with chronic medical conditions or acute concerns mentioned in this note. Physical Exam: Temp: 97.3 F [36.3 C] (12/11/2022 11:28) Pulse:74 (12/11/2022 11:28) BP: 144/72 (12/11/2022 11:32) Resp: 14 (12/11/2022 11:28) Weight: 193 lb [87.54 kg] (12/11/2022 11:28) Pain: 7 (12/11/2022 11:28) O2 Sat: 96% (12/11/2022 11:28) BMI: 29.8 General: AAOx3, NAD CV: S1, S2, RRR, no m/r/g Lungs: CTAB, no crackles, no wheezing Abd: soft, NT/ND, +BS, no rebound, no guarding Extrem: 1+ edema of ankles. mild swelling of right hand/wrist and forearm. no erythema or warmness. mild tenderness. no significant swelling of left hand/wrist/arm. no deformity Labs: WBC 9.32 (10/01/22) HGB 13.3 L (10/01/22) HCT 42.3 (10/01/22) PLT 484 H (10/01/22) SODIUM 140 (10/01/22) POTASSIUM 4.0 (10/01/22) CHLORIDE 103 (10/01/22) CO2 28 (10/01/22) UREA NITROGEN 20 (10/01/22) CREATININE 0.8 (10/01/22) GLUCOSE 146 H (10/01/22) CALCIUM 9.3 (10/01/22) MAGNESIUM 1.7 (10/01/22) EGFR (03/01) 07/13/21 @ 1003 82 CREATININE EGFR (CKD-EPI) 10/01/22 @ 0941 >90 AST/SGOT 18 (09/04/22) ALT/SGPT 17 (09/04/22) ALK PHOSPHATASE 108 (09/04/22) BILIRUBIN, TOTAL 0.5 (09/04/22) CHOLESTEROL 118 (10/22/22) TRIGLYCERIDE____ HDL 30 L (10/22/22) LDL CALCULATION 67 (10/22/22) MEASURED LDL____ HEMOGLOBIN A1C 9.5 H (09/04/22) Essential Medication List - reviewed with Patient/Caregiver FACILITY ALLERGY/ADR -------- No Remote Allergy/ADR Data available for this patient [facility] LISINOPRIL [facility] PIOGLITAZONE [facility] SEMAGLUTIDE [facility] WELLBUTRIN Active Medications: + +--------+----- ---+--------+--------+ Medication (Local) New Med Old Dose New Dose Discontd + +--------+----- ---+--------+--------+ ACCU-CHEK GUIDE (GLUCOSE) TEST STRIP Directions: USE 1 STRIP TOPICALLY FOUR TIMES A DAY TO CHECK BLOOD SUGAR--USE WITHIN 3 MINUTES OF REMOVING FROM CONTAINER Expires: 09/20/23 Status: ACTIVE + +--------+----- ---+--------+--------+ ASPIRIN 81MG EC TAB Directions: TAKE ONE TABLET BY MOUTH EVERY DAY FOR HEART DISEASE Expires: 09/20/23 Status: ACTIVE + +--------+----- ---+--------+--------+ ATORVASTATIN CALCIUM 80MG TAB Directions: TAKE ONE TABLET BY MOUTH AT BEDTIME FOR CHOLESTEROL Expires: 10/02/23 Status: ACTIVE + +--------+----- ---+--------+--------+ CLOPIDOGREL BISULFATE 75MG TAB Directions: TAKE ONE TABLET BY MOUTH EVERY DAY FOR 1 YEAR AFTER STENT UNTIL 09/25/2023 Expires: 10/02/23 Status: ACTIVE + +--------+----- ---+--------+--------+ CYANOCOBALAMIN 1000MCG TAB Directions: TAKE ONE TABLET BY MOUTH EVERY DAY FOR B12 SUPPLEMENT Expires: 09/20/23 Status: ACTIVE + +--------+----- ---+--------+--------+ DICLOFENAC NA 1% TOP GEL Directions: APPLY 4 GRAMS TOPICALLY THREE TIMES A DAY NEEDED TO AFFECTED AREA FOR PAIN Expires: 10/02/23 Status: ACTIVE + +--------+----- ---+--------+--------+ FUROSEMIDE 40MG TAB Directions: TAKE ONE TABLET BY MOUTH EVERY MORNING FOR EXCESS FLUID Expires: 10/02/23 Status: ACTIVE + +--------+----- ---+--------+--------+ GLUCOSE SENSOR FREESTYLE JULIO CESAR 2 Directions: USE 1 SENSOR EVERY 14 DAYS Expires: 10/24/23 Status: ACTIVE + +--------+----- ---+--------+--------+ INSULIN,ASPART(EQV-NOVLG)10 0UN/ML FLXPEN Directions: INJECT 12 UNITS UNDER THE SKIN THREE TIMES A DAY WITH MEALS FOR DIABETES - SKIP DOSE IF NOT EATING PLUS 1 ADDITIONAL UNIT FOR EVERY 50 OVER 150. MAX OF 16 UNITS PER DOSE Expires: 12/07/23 Status: ACTIVE + +--------+----- ---+--------+--------+ LOSARTAN 50MG TAB Directions: TAKE ONE TABLET BY MOUTH EVERY DAY FOR HEART FAILURE Expires: 12/07/23 Status: ACTIVE + +--------+----- ---+--------+--------+ METFORMIN HCL 1000MG TAB Directions: TAKE ONE TABLET BY MOUTH EVERY MORNING FOR DIABETES Expires: 09/19/23 Status: ACTIVE + +--------+----- ---+--------+--------+ METOPROLOL SUCCINATE 50MG SA TAB Directions: TAKE ONE TABLET BY MOUTH EVERY DAY FOR HEART PROTECTION Expires: 10/02/23 Status: ACTIVE + +--------+----- ---+--------+--------+ NEEDLE,PEN 31G,8MM Directions: USE 1 NEEDLE UNDER THE SKIN DIRECTED FOR INSULIN INJECTIONS *DISPOSE OF IN A HARD-PLASTIC CONTAINER WITH A SCREW-ON LID CONTACT MACKENZIE JIM FOR PROPER DISPOSAL Expires: 07/20/23 Status: ACTIVE + +--------+----- ---+--------+--------+ NITROGLYCERIN 0.4MG SL TAB Directions: DISSOLVE ONE TABLET UNDER THE TONGUE EVERY 5 MINUTES FOR UP TO 3 DOSES IF NEEDED FOR CHEST PAIN Expires: 10/02/23 Status: ACTIVE + +--------+----- ---+--------+--------+ INSULIN,GLARGINE-YFGN 100UNIT/ML PEN 3ML Directions: INJECT 50 UNITS UNDER THE SKIN AT BEDTIME FOR DIABETES Expires: 12/07/23 Status: HOLD + +--------+----- ---+--------+--------+ Pending Medications: + +--------+----- ---+--------+--------+ Medication (Local) New Med Old Dose New Dose Discontd + +--------+----- ---+--------+--------+ LIDOCAINE 4% TOP CREAM Directions: APPLY MODERATE AMOUNT TOPICALLY THREE TIMES A DAY Quantity: 90 Status: PENDING + +--------+----- ---+--------+--------+ ======= Medications (Past 90 days): ======= + +--------+----- ---+--------+--------+ Medication (Local) New Med Old Dose New Dose Discontd + +--------+----- ---+--------+--------+ No local medications found. + +--------+----- ---+--------+--------+ Non-VA Medications: + +--------+----- ---+--------+--------+ Medication (Local) New Med Old Dose New Dose Discontd + +--------+----- ---+--------+--------+ CYCLOBENZAPRINE HCL 10MG TAB Directions: 10MG MOUTH THREE TIMES A DAY NEEDED Status: ACTIVE + +--------+----- ---+--------+--------+ Discontinued Medications (Past 90 days): + +--------+----- ---+--------+--------+ Medication (Local) New Med Old Dose New Dose Discontd + +--------+----- ---+--------+--------+ ACCU-CHEK GUIDE (GLUCOSE) TEST STRIP X Directions: USE 1 STRIP TOPICALLY FOUR TIMES A DAY TO CHECK BLOOD SUGAR--USE WITHIN 3 MINUTES OF REMOVING FROM CONTAINER Status: DISCONTINUED + +--------+----- ---+--------+--------+ EMPAGLIFLOZIN 25MG TAB X Directions: TAKE ONE TABLET BY MOUTH EVERY DAY Status: DISCONTINUED + +--------+----- ---+--------+--------+ EMPAGLIFLOZIN 25MG TAB X Directions: TAKE ONE-HALF TABLET BY MOUTH EVERY DAY FOR HEART FAILURE Status: DISCONTINUED + +--------+----- ---+--------+--------+ HYDROCHLOROTHIAZIDE 25MG TAB X Directions: TAKE ONE TABLET BY MOUTH EVERY DAY FOR BLOOD PRESSURE Status: DISCONTINUED + +--------+----- ---+--------+--------+ INSULIN NPH HUMAN 100 UNIT/ML NOVOLIN N Directions: INJECT 30 UNITS UNDER THE SKIN EVERY MORNING AND INJECT 16 UNITS EVERY EVENING FOR DIABETES REFRIGERATE UNTIL OPENED Status: DISCONTINUED + +--------+----- ---+--------+--------+ INSULIN REG HUMAN 100 UNIT/ML NOVOLIN R Directions: INJECT 22 UNITS UNDER THE SKIN EVERY MORNING AND INJECT 20 UNITS EVERY EVENING REFRIGERATE Status: DISCONTINUED + +--------+----- ---+--------+--------+ INSULIN SYRINGE 1ML 31G 8MM X Directions: USE 1 SYRINGE UNDER THE SKIN DIRECTED *DISPOSE OF IN A HARD-PLASTIC CONTAINER WITH A SCREW-ON LIDCONTACT GARBAGE HAJOSUÉ FOR PROPER DISPOSAL Status: DISCONTINUED + +--------+----- ---+--------+--------+ INSULIN,ASPART 100UNIT/ML PENFILL 3ML Directions: INJECT 6 UNITS UNDER THE SKIN EVERY MORNING AND INJECT 8 UNITS TWICE A DAY DIABETES INJECT IMMEDIATELY BEFORE MEAL Status: DISCONTINUED + +--------+----- ---+--------+--------+ INSULIN,ASPART(EQV-NOVLG)10 0UN/ML FLXPEN Directions: INJECT 10 UNITS UNDER THE SKIN THREE TIMES A DAY WITH MEALS FOR DIABETES SKIP DOSE IF NOT EATING Status: DISCONTINUED + +--------+----- ---+--------+--------+ INSULIN,GLARGINE 100 UNT/ML 3ML SOLOSTAR X Directions: INJECT 55 UNITS UNDER THE SKIN EVERY MORNING FOR DIABETES Status: DISCONTINUED + +--------+----- ---+--------+--------+ LOSARTAN 50MG TAB X Directions: TAKE ONE TABLET BY MOUTH EVERY DAY Status: DISCONTINUED + +--------+----- ---+--------+--------+ SEMAGLUTIDE 0.5MG/0.375ML INJ PEN 1.5ML X Directions: INJECT 0.25MG UNDER THE SKIN EVERY WEEK FOR 4 WEEKS, THEN INJECT 0.5MG EVERY WEEK FOR DIABETES Status: DISCONTINUED + +--------+----- ---+--------+--------+ ATORVASTATIN CALCIUM 40MG TAB X Directions: TAKE ONE TABLET BY MOUTH AT BEDTIME FOR CHOLESTEROL Status: DISCONTINUED (EDIT) + +--------+----- ---+--------+--------+ INSULIN,ASPART(EQV-NOVLG)10 0UN/ML FLXPEN Directions: INJECT 6 UNITS UNDER THE SKIN EVERY MORNING AND INJECT 8 UNITS EVERYDAY AT NOON AND INJECT 8 UNITS EVERY EVENING FOR DIABETES Status: DISCONTINUED (EDIT) + +--------+----- ---+--------+--------+ INSULIN,ASPART(EQV-NOVLG)10 0UN/ML FLXPEN X Directions: INJECT 10 UNITS UNDER THE SKIN THREE TIMES A DAY WITH MEALS FOR DIABETES - SKIP DOSE IF NOT EATING Status: DISCONTINUED (EDIT) + +--------+----- ---+--------+--------+ INSULIN,GLARGINE 100 UNT/ML 3ML SOLOSTAR X Directions: INJECT 40 UNITS UNDER THE SKIN EVERY MORNING FOR DIABETES Status: DISCONTINUED (EDIT) + +--------+----- ---+--------+--------+ METFORMIN HCL 1000MG TAB X Directions: TAKE ONE TABLET BY MOUTH TWO TIMES A DAY FOR DIABETES FOR DIABETES Status: DISCONTINUED (EDIT) + +--------+----- ---+--------+--------+ ====== Remote Medications (Past 90 days): ====== + +--------+----- ---+--------+--------+ Medication (Remote) New Med Old Dose New Dose Discontd + +--------+----- ---+--------+--------+ No remote medications found. + +--------+----- ---+--------+--------+ Assessment/Plan: 1. pain in both hands/wrists, chronic 2. swelling of right hand/wrist/arm - the swelling was noticed this morning and now it has gone down, similar to left side. no sign of infection, doubt if that's gout. unlikely this is CHF exacerbation - may have OA - will get xray to evaluate and rule out erosive/inflammatory arthritis - will get labs to check uric acid level and rule out rheumatoid arthritis - continue diclofenac gel and add lidocaine cream as needed for pain - may take tylenol for pain - avoid keeping hands down for long time - if no evidence of inflammatory arthritis and not better with conservative treatment, may refer to orthopedic - refer to rheumatology if there is evidence of inflammatory arthritis(RA or gout). RTC as needed The above plan has been discussed with him. He voiced understanding of the plan. - Vaccinations: IM - Immunizations Immunization Series Date Facility Reaction Info COVID-19 ([employer]), VECTOR-NR, RS* 1 12/10/2020 [facility] * <C> COVID-19 ([facility]), MRNA, LNP-S, P* 2 08/30/2021 [facility] * <C> HEP B, ADULT 07/02/2011 [facility]* 05/17/2011 [facility] PNEUMOCOCCAL CONJUGATE PCV 13 06/29/2016 [facility] * <C> PNEUMOCOCCAL POLYSACCHARIDE PPV23 11/24/2012 [facility]* <C> 01/10/2004 [facility]* <C> TDAP B 07/12/2022 [facility] * 11/24/2012 [facility]* ZOSTER LIVE 06/29/2016 [facility] * <C> ZOSTER RECOMBINANT 2 10/03/2020 [facility] * 1 07/05/2020 [facility] * <C> See the Detailed Immunizations Health Summary Component[DIM] for Comments CVF - Future Appointment: 01/01/2023 14:00 [facility] 01/01/2023 14:30 [facility] 02/18/2023 11:00 [facility] ECHO OUTPATIENT #[id number] 02/19/2023 08:00 [facility] V23 EYE TECS SFT PT Clinical Reminders: /hi/ Albaro Rivera MD Physician [facility] Signed: 12/11/2022 12:07 ALBARO RIVERA ([facility]) December 11, 2022 11:30 AM PRIMARY CARE JOSE FRANCISCO MEGHANN NOTE: LOCAL TITLE: [facility] NURSING PROGRESS NOTE STANDARD TITLE: PRIMARY CARE NURSING NOTE DATE OF NOTE: DECEMBER 11, 2022@11:30 ENTRY DATE: DECEMBER 11, 2022@11:30:45 AUTHOR: CHECO PURCELL EXP COSIGNER: URGENCY: STATUS: COMPLETED TYPE OF VISIT: Appointment Check In Type of appointment: In-person appointment REASON FOR VISIT: Swelling hands/feet, pain all over ALLERGIES: WELLBUTRIN (Jun 29, 2016) LISINOPRIL (Sep 25, 2018) PIOGLITAZONE (Feb 17, 2019) SEMAGLUTIDE (Jan 10, 2022) VITAL SIGNS: Blood Pressure: 158/73 (12/11/2022 11:28) Pulse: 74 (12/11/2022 11:28) Respiration: 14 (12/11/2022 11:28) Temperature: 97.3 F [36.3 C] (12/11/2022 11:28) Weight: 193 lb [87.54 kg] (12/11/2022 11:28) Height: 67.5 in [171.5 cm] (09/04/2022 11:01) BMI: 29.8 O2 Sat: 96% (12/11/2022 11:28) Pain: 7 (12/11/2022 11:28) PAIN SCREEN: Patient is having significant pain that they would like to talk to their provider about today. Old (Chronic) (began more than 6 months ago) Patient states their average pain this past week is 5 Patient states the average number on how the chronic pain affects their enjoyment of life the past week is 5 Patient states during the past week the average number on how the pain has interfered with their general activity is 5 COVID-19 Immunization Booster: Defer indefinitely - based on discussion with the patient, no additional booster dose is warranted. Influenza Immunization: The patient declines to receive the recommended dose of seasonal influenza vaccine. Immunization: INFLUENZA, UNSPECIFIED FORMULATION Refusal Reason: PATIENT DECISION Patient refuses all immunization(s) in the FLU group Date Documented: 12/11/22 11:32 /hi/ CHECO BATES [facility] Signed: 12/11/2022 11:32 CHECO PURCELL ([facility])
--- OUTSIDE RECORDS SUMMARY | 2023-08-14 09:38 | XMS_ITS | Encounter Summary ---
Author Name [facility] of [facility] Organization Department of [facility] Address [address] [place] [address] Support Name Relationship Address Phone BREE KHOURY Next of Kin [address] [place] [address] BREE KHOURY Emergency Contact [address] [place] [address] Insurance Providers: All historical and [...] Policy Vaughn [employer] MCR (WNR) MEDICARE ADVANTAGE [facility] (WNR) Jul 29, 2021 [id number] KHOURY,CHIP SLEY PATIENT [employer] M[employer] (WNR) MEDICARE ADVANTAGE MCR (WNR) Jul 29, 2015 [id number] KHOURY,WE SLEY PATIENT [employer] MCR (WNR) MEDICARE ADVANTAGE MCR (WNR) Jul 29, 2015 [id number] KHOURY,WE SLEY PATIENT [employer] M[employer] (WNR) MEDICARE ADVANTAGE [facility] (WNR) Jul 29, 2015 [id number] IRAIDA,CHIP FLORIAN PATIENT Selected Encounter This section includes the information on record at [place] for the Encounter. Date/Time Encounter Type Encounter Description Reason Provider Source December 11, 2022 09:09 AM Outpatient Encounter TELEPHONE TRIAGE FELI HAYES [facility] Encounter Template Text not used by [place] Plan of Treatment: Future Appointments (+ 6 months) and Future Tests (+/- 45 days) The Plan of Treatment section includes future care activities for the patient from [facility] This section includes future appointments and future orders which are active, pending or scheduled. Future Appointments This section includes appointments that were scheduled to occur 6 months from the date of the Encounter, up to a maximum of 20 appointments. The data comes from all [facility] facilities. Appointment Date/Time Appointment Type Appointme [...] 07, 2023 01:00 PM [facility] - MEDICINE [facility] Feb 07, 2023 02:15 PM AMBULATORY - MEDICINE [facility] Feb 18, 2023 11:00 AM [facility]ATORY - MEDICINE [facility] Feb 19, 2023 08:00 AM AMBULATORY - NONE [facility] ([facility]) Feb 22, 2023 01:30 PM AMB[facility] - MEDICINE [facility] ([facility]) Mar 04, 2023 02:30 PM AMBULATORY - MEDICINE [facility] Mar 12, 2023 11:30 AM [...] Range Comment Jan 09, 2023 12:17 PM [facility] ([facility]) SED RATE Specimen Type: BLOOD No comment entered. Ordering Provider: ADITYA AGUILAR Report Released Date/Time: Jan 09, 2023 12:11 PM Reporting Lab: [facility] [phone] Performing Lab: [facility] [phone] SED RATE 20 H 5-15 Jan 09, 2023 12:17 PM [facility] ([facility]) C-REACTIVE PROTEIN Specimen Type: PLASMA No comment entered. Ordering Provider: ADITYA AGUILAR Report Released Date/Time: Jan 09, 2023 12:11 PM Reporting Lab: [facility] [phone] Performing Lab: [facility] [phone] C-REACTIVE PROTEIN 0.88 See_Comment Jan 01, 2023 03:37 PM [place] ([facility]) HEMOGLOBIN A1C Specimen Type: BLOOD Comment: [...] Jan 01, 2023 03:34 PM Reporting Lab: [facility] [phone] Performing Lab: [facility] [phone] HEMOGLOBIN A1C 8.6 H 4.0-6.0 December 11, 2022 11:53 AM [place] ([facility]) QI WITH REFLEX TO ISABEL/DNA Specimen Type: SERUM No comment entered. Ordering Provider: ANURAG MADDOX Report Released Date/Time: December 11, 2022 11:49 AM Reporting Lab: [facility] [phone] Performing Lab: [facility] [phone] .ANTINUCLEAR ANDREW SPECKLED POSITIVE See_Comment .REJI TITER 1:160 See_Comment December 11, 2022 11:53 AM [place] ([facility]) URIC ACID Specimen Type: PLASMA No comment entered. Ordering Provider: ANURAG MADDOX Report Released Date/Time: December 11, 2022 11:49 AM Reporting Lab: [facility] [phone] Performing Lab: [facility] [address] URIC ACID 2.9 L 3.5-7.2 December 11, 2022 11:53 AM [place] ([facility]) ANTI-CCP Specimen Type: PLASMA No comment entered. Ordering Provider: ANURAG MADDOX Report Released Date/Time: December 11, 2022 11:49 AM Reporting Lab: [facility] [phone] Performing Lab: [facility] [address] ANTI-CCP 0.6 <4.9 December 11, 2022 11:53 AM [facility] ([facility]) RHEUMATOID FACTOR Specimen Type: SERUM No comment entered. Ordering Provider: ANURAG MADDOX Report Released Date/Time: December 11, 2022 11:49 AM Reporting Lab: [facility] [phone] Performing Lab: [facility] [phone] RHEUMATOID FACTOR <13 <29 December 11, 2022 11:53 AM [facility] ([facility]) C-REACTIVE PROTEIN Specimen Type: PLASMA No comment entered. Ordering Provider: ANURAG MADDOX Report Released Date/Time: December 11, 2022 11:49 AM Reporting Lab: [facility] [address] Performing Lab: [facility] [address] C-REACTIVE PROTEIN 18.30 H <5.00 December 11, 2022 11:53 AM [place] ([facility]) SED RATE Specimen Type: BLOOD No comment entered. Ordering Provider: ANURAG MADDOX Report Released Date/Time: December 11, 2022 11:49 AM Reporting Lab: [facility] [phone] Performing Lab: [facility] [address] SED RATE 38 H 5-15 December 11, 2022 11:53 AM [place] ([facility]) CBC Specimen Type: BLOOD No comment entered. Ordering Provider: ANURAG MADDOX Report Released Date/Time: December 11, 2022 11:49 AM Reporting Lab: [facility] [phone] Performing Lab: [facility] [address] WBC 8.52 4.0-11.0 RBC 4.85 4.6-6.2 HGB 12.3 L 13.5-17.9 HCT 39.4 L 41-54 MCV 81.2 80-100 MCH 25.4 L 27-33 MCHC 31.2 L 32.0-37.5 PLT 499 H 150-400 MPV 9.1 7.4-10.4 RDW 15.4 H 11.5-14.5 December 11, 2022 11:53 AM [place] ([facility]) ANTI-ISABEL PANEL([place]) Specimen Type: SERUM Comment: QI WITH REFLEX TO ISABEL/DNA: IM [id number] Reference Range: < 1.0 NEG AI Reference Range: < 1.0 NEG AI Reference Range: < 1.0 NEG AI Reference Range: < 1.0 NEG AI Reference Range: < 1.0 NEG AI Reference Range: < 1.0 NEG AI Test Performed by [facility], [employer] [facility], [address] [place] [address] [place] M.D., Ph.D., Director of Laboratories , [facility] [id number] Ordering Provider: ANURAG MADDOX Report Released Date/Time: December 12, 2022 02:23 PM Reporting Lab: [facility] [phone] Performing Lab: [address] ANTI-TADEO <1.0 ANTI-VP OF GLOBAL MARKETING <1.0 ANTI-SSA/RO <1.0 ANTI-SSB/LA <1.0 ANTI-SCL-70 <1.0 ANTI-TAY-1 <1.0 December 11, 2022 11:53 AM [place] ([facility]) B 12 Specimen Type: SERUM Comment: Specimen received is PLASMA. Ordering Provider: ANURAG MADDOX Report Released Date/Time: December 12, 2022 07:59 AM Reporting Lab: [facility] [address] Performing Lab: [facility] [address] B 12 916 H 213-816 December 11, 2022 11:53 AM [place] ([facility]) IRON GROUP Specimen Type: SERUM Comment: Specimen received is PLASMA. Ordering Provider: ANURAG MADDOX Report Released Date/Time: December 12, 2022 07:59 AM Reporting Lab: [facility] [address] Performing Lab: [facility] [phone] IRON 30 L 65-175 TIBC,CALCULAT ED 264 250-425 FERRITIN 189.5 21.8-274.7 IRON SATURATION 11 L 20-50 TRANSFERRIN [phone] December 11, 2022 11:53 AM [place] ([facility]) FOLATE Specimen Type: SERUM Comment: Specimen received is PLASMA. Ordering Provider: ANURAG MADDOX Report Released Date/Time: December 12, 2022 07:59 AM Reporting Lab: [facility] [phone] Performing Lab: [facility] [phone] FOLATE 9.2 >7.0 Radiology Reports: +/- 30 days of the [...] the Encounter. The data comes from all [facility] facilities. Date/Time Radiology Report Provider Source December 11, 2022 12:01 PM HAND LEFT 3 VIEWS OR MORE: LUIS KHOURY [id number] -1945 M Exm Date: DECEMBER 11, 2022@12:01 Req Phys: ANURAG MADDOX Pat Loc: [facility] (Req'g Loc) Img Loc: [facility] Service: Unknown (Case [id number] COMPLETE) HAND LEFT 3 VIEWS OR MORE (RAD Detailed) CPT:14860 Proc Modifiers : LEFT Reason for Study: [...] 11, 2022 Date Verified: DECEMBER 11, 2022 Education Nurse E-Sig:/ES/ADDIE PARMAR DO Report: EXAMINATION: HAND RIGHT [...] Primary Interpreting Staff: ADDIE PARMAR DO, RADIOLOGIST (Education Nurse) /DDS ADDIE PARMAR [facility] December 11, 2022 12:01 PM HAND RIGHT 3 VIEWS OR MORE: LUIS KHOURY [id number] -1945 M Ex Date: DECEMBER 11, 2022@12:01 Req Phys: ANURAG MADDOX Loc: [facility] (Req'g Loc) Img Loc: [facility] Service: Unknown (Case [id number] COMPLETE) HAND RIGHT 3 VIEWS OR MORE (RAD Detailed) CPT:52055 Proc Modifiers : RIGHT Reason for Study: pain in both hands Clinical History: [place] IS NOT under investigation for COVID-19 or [...] 11, 2022 Date Verified: DECEMBER 11, 2022 Education Nurse E-Sig:/ES/ADDIE PARAMR DO Report: EXAMINATION: HAND RIGHT 3 VIEWS [...] Primary Interpreting Staff: ADDIE PARMAR DO, RADIOLOGIST (Education Nurse) /DDS ADDIE PARMAR [facility] Encounter Notes: All associated encounter notes This section contains the clinical notes associated to the Encounter. Date/Time Encounter Note(s) Provider Source December 11, 2022 09:09 AM RN PROGRESS NOTE: LOCAL TITLE: [facility]: CLINICAL TRIAGE STANDARD TITLE: RN PROGRESS NOTE DATE OF NOTE: DECEMBER 11, 2022@09:09:02 ENTRY DATE: DECEMBER 11, 2022@09:09:02 AUTHOR: FELI HAYES COSIGNER: URGENCY: STATUS: COMPLETED Patient Demographics Patient Name: LUIS KHOURY Patient Primary Address: [address] [place] [address] Patient Primary Phone: [phone] Patient : 1945 Patient Age: 77 SSN: [id number] Caller/Recipient Relation to Patient: Self Emergency Contact: BREE KHOURY Nurse Summary Nurse Summary: NURSES NOTES PATIENT CONCERN/DURATION/ONSET: calling with new and worsening swelling. States his bilateral leg swelling has worsened and has new swelling of his hands. States yesterday he noted his left hand to start swelling and today his right hand is swollen. Pain with swelling is 7/10 with palpation of swollen arm. No redness to skin. Denies an injury. States he notices he is more short of breath with activity. Speaks in full complete sentences during call and no wheezing is noted. Blood sugar this morning was 170 before breakfast. WHAT HAS PATIENT TRIED TO TREAT THE SYMPTOMS: taking meds as ordered HISTORY/PREVIOUS TREATMENT: HTN, neuropathy, diabetes, CHF, CAD WHAT IS PATIENT GOAL FOR THE CALL: evaluation of swelling DID YOU CONSIDER USING [facility] LIP (TELE or VVC): no PARALEGAL SPECIALIST DISPOSITION: Recommended triage is acute evaluation because of cardiac risk with rapid swelling. Scheduling is able to schedule at 1130 today. [place] agrees with plan of care and verbalizes via teach-back s/s to seek ED/UC evaluation as well as home care advice offered (e.g. if symptoms worsen or new symptoms present should seek medical care) and as outlined in education section below. Best contact for is . (Caller could accurately summarize the agreed upon plan of care as discussed in the education log portion of this note.) Per policy, automated recommendations for an 'appointment' indicates an interaction (virtual or in-person) with the care team. This note was created by a [address] imaging specialist. Please do not alert this nurse by adding as a signer for future communications. Alerts are not monitored by this user, please reach out to [facility] instead if indicated. Triage Summary Pain Score: 7 (Moderate to Severe Pain) Utilized the Triage Tool: Yes Conducted triage/discussed symptoms Conducted COVID Screening COVID Screening Results: Negative Chief Complaint: Hand Swelling (both hands) System WHEN: Within 8 Hours Nurse's Recommendation / WHEN: Within 8 Hours System WHERE: Urgent care center Nurse's Recommendation / WHERE: Appointment Covid Screening No known exposure Screen is negative Patient Disposition Patient/Caregiver agrees to plan of care: Yes Patient WHERE: Appointment Patient WHEN: Within 8 hours Patient is Urgent or Emergent Referred patient for in-person appt. Transferred patient to Sched & Admin-Apt Other course(s) of action Generated msg to PACT/Provider Provided guidance for worsening symptoms: *Caller/Patient* advised to call facilities [facility] or seek immediate medical attention for new or worsening symptoms Clinical Contact Center Codes Clinic/Location: [address] PHONE [facility] RN [facility] Triage Complete Triage Note: Phone Triage 11 Dec 2022 13:58:52 +0000 [facility] Demographics 77 y/o Male Results CC: Hand Swelling (both hands) Software suggested: Within 8 Hours Software suggested follow-up location: Urgent care center Values and Measures Duration of CC: 2 Days Positive Responses HPI: dyspnea on exertion, worse than usual HPI: dyspnea, resting HPI: leg swelling, bilateral, worsening PMH: CHF VS: respiratory rate not taken VS: temperature not taken Negative Responses Denies: HPI: hand erythema, worsening, bilateral Denies: HPI: paroxysmal nocturnal dyspnea Education Log Home care for swelling includes: Eat a low salt diet. Elevate the swollen area. Get regular exercise. Lose weight if you are overweight. Restrict fluids in the diet as directed by your provider. Take prescription medications as directed. 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
--- OUTSIDE RECORDS SUMMARY | 2023-08-14 09:38 | XMS_ITS | Encounter Summary ---
Author Name Department of [facility] Organization Department of [facility] Address [address] [place] [address] Support Name Relationship Address Phone BREE KHOURY Next of Kin [address] [place] [address] BREE KHOURY Emergency Contact [address] [place] [address] Insurance Providers: All historical and [...] Policy Vaughn HUMANA MCR (WNR) MEDICARE ADVANTAGE [facility] (WNR) Jul 29, 2021 [id number] KHOURY,WE SLEY PATIENT HUMANA MCR (WNR) MEDICARE ADVANTAGE M[facility] (WNR) Jul 29, 2015 [id number] 97 KHOURY,WE SLEY PATIENT HUMANA MCR (WNR) MEDICARE ADVANTAGE MCR (WNR) Jul 29, 2015 [id number] 97 KHOURY,WE SLEY PATIENT HUMANA MCR (WNR) MEDICARE ADVANTAGE [facility] (WNR) Jul 29, 2015 [id number] 97 [phone] KHOURY,WE CHIQUI PATIENT Selected Encounter This section includes the information on record at [place] for the Encounter. Date/Time Encounter Type Encounter Description Reason Provider Source Nov 08, 2022 07:22 AM Outpatient Encounter PRIMARY CARE/MEDICINE SHYANNE SAMPSON Encounter Template Text not used by [place] Plan of Treatment: Future Appointments (+ 6 months) and Future Tests (+/- 45 days) The Plan of Treatment section includes future care activities for the patient from all [place] [facility] This section includes future appointments and future orders which are active, pending or scheduled. Future Appointments This section includes appointments that were scheduled to occur 6 months from the date of the Encounter, up to a maximum of 20 appointments. The data comes from all [facility] facilities. Appointment Date/Time Appointment Type Appointme nt Facility Name Nov 16, 2022 10:30 AM AMBULATORY - [...] 07, 2023 01:00 PM AM[facility]AT[facility]INE [facility] Feb 07, 2023 02:15 PM AMBULATORY - MEDICINE [facility] Feb 18, 2023 11:00 AM AMBULATORY - MEDICINE [facility] Feb 19, 2023 08:00 AM AMBULATORY - NONE [facility]) Feb 22, 2023 01:30 PM AMBULATORY - MEDICINE [facility] ([facility]) Mar 04, 2023 02:30 PM AMBULATORY - MEDICINE [facility] Mar 12, 2023 11:30 AM AMBULATORY [...] and Hematology Lab Results on record with [place] for the patient. Radiology Reports and Pathology Reports are provided separately, in subsequent sections. Lab Results This section contains the Chemistry/Hematology Results that were resulted 30 days before or 30 daysafter the date of the Encounter. Date/Time Source Result Type Result - Unit Interpretation Reference Range Comment Oct 22, 2022 01:51 PM [facility] BNP Specimen Type: PLASMA No comment entered. Ordering Provider: PALOMO RIVERA Report Released Date/Time: Oct 22, 2022 01:37 PM Reporting Lab: [facility] [id number] Performing Lab: [facility] [id number] BNP 105 H <99 Oct 22, 2022 01:51 PM [facility] LIPID PANEL,NON-FASTING Specimen Type: PLASMA No comment entered. Ordering Provider: PALOMO RIVERA Report Released Date/Time: Oct 22, 2022 01:37 PM Reporting Lab: [facility] [id number] Performing Lab: [facility] [id number] CHOLESTEROL 118 <199 .HDL 30 L >40 LDL CALCULATION 67 <99 VLDL CALCULATION 21 <29 NON HDL CHOLESTEROL 88 <129 TRIG(NON FASTING) 106 <149 Encounter Notes: All associated encounter notes This section contains the clinical notes associated to the Encounter. Date/Time Encounter Note(s) Provider Source Nov 09, 2022 10:00 AM PRIMARY CARE [facility] MESSAGING: [facility] TITLE: PRIMARY CARE SECURE MESSAGING STANDARD TITLE: PRIMARY CARE SECURE MESSAGING DATE OF NOTE: NOV 09, 2022@10:00 ENTRY DATE: NOV 09, 2022@10:00:58 AUTHOR: SHYANNE SAMPSON COSIGNER: URGENCY: STATUS: COMPLETED ------Original Message Sent: 11/08/2022 09:57 AM ET From: LUIS KHOURY To: [facility] (Jony) Subject: Medication:Out I have check my hole room, check every place, even check behind the dresser that I keep all my pills. I just don't have it here. ------Original Message Sent: 11/09/2022 11:00 AM ET From: SHYANNE SAMPSON To: LUIS KHOURY Subject: Medication:Out Jes Khoury, I have contacted the pharmacy in [place] and they will send you out a new prescription. Thanks for double checking though. Thank you for your service and have a good weekend. Shyanne casey/ SHYANNE SAMPSON LPN [facility] Signed: 11/09/2022 10:00 SHYANNE SAMPSON ([facility]) Nov 08, 2022 07:22 AM PRIMARY CARE SECUR E MESSAGING: LOCAL TITLE: PRIMARY CARE SECURE MESSAGING STANDARD TITLE: PRIMARY CARE SECURE MESSAGING DATE OF NOTE: NOV 08, 2022@07:22 ENTRY DATE: NOV 08, 2022@07:22:24 AUTHOR: SHYANNE SAMPSON EXP COSIGNER: URGENCY: STATUS: COMPLETED ------Original Message Sent: 11/07/2022 05:38 PM ET From: LUIS KHOURY To: [facility], Soumya Mei (Radhakinsleyyanelis) Subject: Medication:Out Clopidogrel Bisulfate I'm out, was filling my pill box and I don't have any of this pill. ------Original Message Sent: 11/08/2022 08:22 AM ET From: SHYANNE SAMPSON To: LUIS KHOURY Subject: Medication:Out Jes Khoury, I show that a new bottle for 90 day supply was sent out and delivered to your address on October 08. Please check to see if you have the new bottle set aside someplace. Shyanne casey/ SHYANNE SAMPSON LPN [facility][1] Signed: 11/08/2022 07:22 SHYANNE SAMPSON ([facility])
--- OUTSIDE RECORDS SUMMARY | 2023-08-14 09:39 | XMS_ITS | Encounter Summary ---
Author Name Department of [facility] Organization [facility] of [facility] Address [address] [place] [address] Support Name Relationship Address Phone BREE KHOURY Next of Kin [address] [place] [address] BREE KHOURY Emergency Contact [address] [place] [address] Insurance Providers: All historical and [...] Policy Vaughn HUMANA MCR (WNR) MEDICARE ADVANTAGE [facility] (WNR) Jul 29, 2021 [id number] 1 [id number] KHOURY,WE SLEY PATIENT HUMANA MCR (WNR) MEDICARE ADVANTAGE [facility] (WNR) Jul 29, 2015 [id number] 97 KHOURY,WE SLEY PATIENT HUMANA MCR (WNR) MEDICARE ADVANTAGE [facility] (WNR) Jul 29, 2015 [id number] 97 KHOURY,WE SLEY PATIENT HUMANA MCR (WNR) MEDICARE ADVANTAGE [facility] (WNR) Jul 29, 2015 [id number] [phone] KHOURY,WE SLEY PATIENT Selected Encounter This section includes the information on record at [place] for the Encounter. Date/Time Encounter Type Encounter Description Reason Provider Source Sep 13, 2022 01:20 PM [facility] OL DIG ASSMT&MGMT 5-10 CLINICAL PHARMACY ICD-10-CM E11.9 Type 2 diabetes mellitus without complications HELEN AYON Encounter Template Text not used by [place] Assessments - Encounter Diagnoses This section includes the primary and secondary diagnoses documented for the Encounter. Date/Time Primary/Secondary Diagnosis Diagnosis Name Provider Source Sep 13, 2022 01:26 PM PRIMARY Type 2 diabetes mellitus without complications G[facility]LEN [facility] Plan of Treatment: Future Appointments (+ 6 months) and Future Tests (+/- 45 days) The Plan of Treatment section includes future care activities for the patient from all [place] treatmentfacilities. This section includes future appointments and future orders which are active, pending or scheduled. Future Appointments This section includes appointments that were scheduled to occur 6 months from the date of the Encounter, up to a maximum of 20 appointments. The data comes from all [place] treatment facilities. Appointment Date/Time Appointment Type Appointme nt Facility Name Sep 19, 2022 10:30 AM [facility]BULATORY - NONE [facility] Oct 01, 2022 08:45 AM AMBULATORY - MEDICINE [facility] ([facility]) Oct 15, 2022 02:00 PM AMBULATORY - NONE [facility] Oct 19, 2022 10:30 AM [facility]ATORY - NONE [facility] Oct 22, 2022 12:15 PM [facility] Oct 22, 2022 12:30 PM AMBULATORY - MEDICINE [facility] Nov 16, 2022 10:30 AM AMBULATORY - [...] 07, 2023 01:00 PM AMBULATORY - MEDICINE [facility] Feb 07, 2023 02:15 PM AMBULATORY - MEDICINE [facility] Feb 18, 2023 11:00 AM AMBULATORY - MEDICINE [facility] Feb 19, 2023 08:00 AM [facility]ATORY - NONE [facility] Feb 22, 2023 01:30 PM AMBULATORY - MEDICINE [facility] ([facility]) Mar 04, 2023 02:30 PM AMBULATORY - MEDICINE [facility] Lab Results: +/- 30 days of the encounter This section includes the Chemistry and Hematology Lab Results on record with [place] for the patient. Radiology Reports and Pathology Reports are provided separately, in subsequent sections. Lab Results This section contains the Chemistry/Hematology Results that were resulted 30 days before or 30 daysafter the date of the Encounter. Date/Time Source Result Type Result - Unit Interpretation Reference Range Comment Oct 01, 2022 09:41 AM [place] ([facility]) CBC Specimen Type: BLOOD No comment entered. Ordering Provider: ADRIENNE CROW Report Released Date/Time: Oct 01, 2022 09:30 AM Reporting Lab: [facility] [id number] Performing Lab: [facility] [address] WBC 9.32 4.0-11.0 RBC 5.08 4.6-6.2 HGB 13.3 L 13.5-17.9 HCT 42.3 41-54 MCV 83.3 80-100 MCH 26.2 L 27-33 MCHC 31.4 L 32.0-37.5 PLT 484 H 150-400 MPV 9.3 7.4-10.4 RDW 14.1 11.5-14.5 Oct 01, 2022 09:41 AM [place] ([facility]) BASIC METABOLIC PANEL+MG Specimen Type: PLASMA No comment entered. Ordering Provider: ADRIENNE CROW Report Released Date/Time: Oct 01, 2022 09:30 AM Reporting Lab: [facility] [address] Performing Lab: [facility] [address] CREATININE 0.8 0.7-1.2 UREA NITROGEN 20 8-26 GLUCOSE 146 H 70-100 SODIUM 140 136-145 POTASSIUM 4.0 3.5-5.1 CHLORIDE 103 98-107 CO2 28 22-29 CALCIUM 9.3 8.4-10.2 MAGNESIUM 1.7 1.6-2.6 ANION GAP 9 5-15 CREAT EGFR(CKD-EPI) >90 >60 Sep 04, 2022 11:47 AM [place] ([facility]) URINALYSIS Specimen Type: URINE No comment entered. Ordering Provider: ADRIENNE CROW Report Released Date/Time: Sep 04, 2022 11:40 AM Reporting Lab: [facility] [address] Performing Lab: [place] [phone] URINE COLOR COLORLESS SPECIFIC GRAVITY 1.022 1.003-1.03 [...] NEGATIVE NEGATIVE Sep 04, 2022 11:46 AM [facility] C-PEPTIDE Specimen Type: SERUM Comment: Test Performed by [facility], [address] [place] [address] [place] M.D., Ph.D., Director of Laboratories , CLIA [id number] Ordering Provider: JUANCARLOS BOYKIN Report Released Date/Time: Jul 19, 2022 09:30 AM Reporting Lab: [facility] [address] Performing Lab: [address] C-PEPTIDE <0.10 L 0.80-3.85 Sep 04, 2022 11:46 AM [facility] KSENIA-65 ANTIBODY Specimen Type: SERUM Comment: REFERENCE RANGE: <5 IU/mL This test was performed using the GAD65 ZOHRA method, which is standardized against the International reference preparation 97/550. Test Performed by [facility], [address] [place] [address] [place] M.D., Ph.D., Director of Laboratories , CLIA [id number] Ordering Provider: JUANCARLOS BOYKIN Report Released Date/Time: Jul 19, 2022 09:30 AM Reporting Lab: [place] [phone] Performing Lab: [address] KSENIA-65 ANTIBODY >250 H SEE BELOW Sep 04, 2022 11:46 AM [facility] GLUCOSE Specimen Type: PLASMA No comment entered. Ordering Provider: JUANCARLOS BOYKIN Report Released Date/Time: Jul 19, 2022 09:30 AM Reporting Lab: [facility] [address] Performing Lab: [facility] [address] GLUCOSE 130 H 70-100 Sep 04, 2022 11:46 AM [place] ([facility]) BNP Specimen Type: PLASMA No comment entered. Ordering Provider: ADRIENNE CROW Report Released Date/Time: Sep 04, 2022 11:36 AM Reporting Lab: [facility] [id number] Performing Lab: [facility] [address] BNP <10 <99 Sep 04, 2022 11:46 AM [place] ([facility]) HEMOGLOBIN A1C Specimen Type: BLOOD Comment: Values [...] Sep 04, 2022 11:36 AM Reporting Lab: [facility] [address] Performing Lab: [facility] [address] HEMOGLOBIN A1C 9.5 H 4.0-6.0 Sep 04, 2022 11:46 AM [place] ([facility]) COMPREHENSIVE METABOLIC PANEL+MG Specimen Type: PLASMA No comment entered. Ordering Provider: ADRIENNE CROW Report Released Date/Time: Sep 04, 2022 11:36 AM Reporting Lab: [facility] [address] Performing Lab: [facility] [address] CREATININE 0.8 0.7-1.2 UREA NITROGEN 18 8-26 GLUCOSE 130 H 70-100 SODIUM 139 136-145 POTASSIUM 3.8 3.5-5.1 CHLORIDE 102 98-107 CO2 25 22-29 CALCIUM 9.6 8.4-10.2 PROTEIN,TOTAL 7.7 6.0-8.3 ALBUMIN 4.0 3.5-5.2 BILIRUBIN, TOTAL 0.5 0.2-1.2 MAGNESIUM 1.7 1.6-2.6 ANION GAP 12 5-15 ALKALINE PHOSPHATASE 108 40-150 ALT/SGPT 17 <55 AST/SGOT 18 <34 CREAT EGFR(CKD-EPI) >90 >60 Sep 04, 2022 11:46 AM [place] ([facility]) CBC Specimen Type: BLOOD No comment entered. Ordering Provider: ADRIENNE CROW Report Released Date/Time: Sep 04, 2022 11:37 AM Reporting Lab: [facility] [address] Performing Lab: [facility] [address] WBC 7.80 4.0-11.0 RBC 5.42 4.6-6.2 HGB 14.8 13.5-17.9 HCT 44.9 41-54 MCV 82.8 80-100 MCH 27.3 27-33 MCHC 33.0 32.0-37.5 PLT 355 150-400 MPV 9.5 7.4-10.4 RDW 14.3 11.5-14.5 Radiology Reports: +/- 30 days of the [...] the Encounter. The data comes from all [place] treatment facilities. Date/Time Radiology Report Provider Source Sep 04, 2022 11:46 AM CHEST 2 VIEWS PA A ND LAT: LUIS KHOURY [id number] M Exm Date: SEP 04, 2022@11:46 Req Phys: ADRIENNE CROW Pat Loc: [facility] PACT AL[facility]ACIA [facility] (Req'g Loc Img Loc: [facility] RADIOLOG[facility] Service: Unknown (Case [id number] COMPLETE) CHEST 2 VIEWS PA AND LAT (RAD Detailed) CPT:90332 Reason for Study: ankle sweling, sob Clinical History: [place] IS NOT under investigation for COVID-19 or is COVID-19 negative ankle swelling, sob Responsible provider name and phone number to notify for critical findings if other than user placing the order and pager listed below: User placing orders pager: adrienne crow LAST CREATININE 0.9 (07/12/22) Report Status: Verified Date Reported: SEP 04, 2022 Date Verified: SEP 04, 2022 Air Pollution Auditor E-Sig:/ES/GENE LORA MD Report: DATE/TIME REGISTERED: 09/04/2022 [...] Primary Interpreting Staff: GENE LORA MD, RADIOLOGIST (Maira) /GENE RIVAS [facility] Encounter Notes: All associated encounter notes This section contains the clinical notes associated to the Encounter. Date/Time Encounter Note(s) Provider Source Sep 13, 2022 01:20 PM DIABETOLOGY NOTE: LOCAL TITLE: DIAGNOSTIC CGM INTERPRETATION STANDARD TITLE: DIABETOLOGY NOTE DATE OF NOTE: SEP 13, 2022@13:20 ENTRY DATE: SEP 13, 2022@13:20:38 AUTHOR: HELEN AYON COSIGNER: URGENCY: STATUS: COMPLETED Diagnostic Continuous Glucose Monitor (CGM) Interpretation Note Type of CGM: Madeline Pro Start date: Jul End date: Jul % of time in use: 100 Average Blood Glucose (BG): 224 Coefficient of Variation: 27.4% Predicted A1c: 8.7% % BG > 250: 33 % BG 180-249:39 % BG 70-180: 28 % BG 69-54: 0 % BG < 54: 0 Daily and composite blood glucoses reviewed, overall trends: 1. Elevated daytime readings with peak ~0600 2. Levels drop into upper end of goal range overnight 3. Does appear to be taking mealtime insulin 1-3 times daily Recommendations 1. Increase prandial coverage 2. Limit carbohydrate intake with meals and snack 3. May benefit from increased activity /es/ HELEN AYON, PHARMD, [facility] CLINICAL STUNT PERSON Signed: 09/13/2022 13:26 HELEN AYON [facility]
--- OUTSIDE RECORDS SUMMARY | 2023-08-14 09:39 | XMS_ITS | Encounter Summary ---
Author Name Department of [facility] Organization Department of [facility] Address [address] [place] [id number] Support Name Relationship Address Phone BREE KHOURY Next of Kin [address] [place] [address] BREE KHOURY Emergency Contact [address] [place] [address] Insurance Providers: All historical and [...] HUMANA MCR (WNR) MEDICARE ADVANTAGE [facility] (WNR) Jul 29, 2021 [id number] 1 [id number] [phone] KHOURY,WE SLEY PATIENT HUMANA MCR (WNR) MEDICARE ADVANTAGE [facility] (WNR) Jul 29, 2015 [id number] 97 KHOURY,WE SLEY PATIENT HUMANA MCR (WNR) MEDICARE ADVANTAGE [facility] (WNR) Jul 29, 2015 [id number] 97 KHOURY,WE SLEY PATIENT HUMANA MCR (WNR) MEDICARE ADVANTAGE [facility] (WNR) Jul 29, 2015 [id number] 97 KHOURY,WE SLEY PATIENT Selected Encounter This section includes the information on record at [place] for the Encounter. Date/Time Encounter Type Encounter Description Reason Provider Source Oct 23, 2022 01:03 PM [facility] OL DIG ASSMT&MGMT 5-10 CLINICAL PHARMACY ICD-10-CM E10.40 Type 1 diabetes mellitus with diabetic neuropathy, unsp BEATRICE JONES Encounter Template Text not used by [place] Assessments - Encounter Diagnoses This section includes the primary and secondary diagnoses documented for the Encounter. Date/Time Primary/Secondary Diagnosis Diagnosis Name Provider Source Oct 23, 2022 01:08 PM PRIMARY Type 1 diabetes mellitus with diabetic neuropathy, BEATRICE Miranda [facility] Plan of Treatment: Future Appointments (+ [...] 07, 2023 01:00 PM AMBULATORY - MEDICINE [facility] Feb 07, 2023 02:15 PM AMBULATORY - MEDICINE [facility] Feb 18, 2023 11:00 AM AMBULATORY - MEDICINE [facility] Feb 19, 2023 08:00 AM AMBULATORY - NONE [facility] Feb 22, 2023 01:30 PM AMBULATORY - MEDICINE [facility] ([facility]) Mar 04, 2023 02:30 PM AMBULATORY - MEDICINE [facility] Mar 12, 2023 11:30 AM AMBULATORY - NONE [facility] Apr 04, 2023 08:45 AM AMBULATORY - NONE [facility] Apr 09, 2023 01:45 PM [facility]BULATORY - NONE [facility] Apr 17, 2023 10:00 AM AMBULATORY - MEDICINE [facility]) Lab Results: +/- 30 days [...] Range Comment Oct 22, 2022 01:51 PM [facility] BNP Specimen Type: PLASMA No comment entered. Ordering Provider: PALOMO RIVERA Report Released Date/Time: Oct 22, 2022 01:37 PM Reporting Lab: [facility] [address] Performing Lab: [facility] [address] BNP 105 H <99 Oct 22, 2022 01:51 PM [facility] LIPID PANEL,NON-FASTING Specimen Type: PLASMA No comment entered. Ordering Provider: PALOMO RIVERA Report Released Date/Time: Oct 22, 2022 01:37 PM Reporting Lab: [facility] [id number] Performing Lab: [facility] [address] CHOLESTEROL 118 <199 .HDL 30 L >40 LDL CALCULATION 67 <99 VLDL CALCULATION 21 <29 NON HDL CHOLESTEROL 88 <129 TRIG(NON FASTING) 106 <149 Oct 01, 2022 09:41 AM [place] ([facility]) BASIC METABOLIC PANEL+MG Specimen Type: PLASMA No comment entered. Ordering Provider: DAMIAN RYAN Report Released Date/Time: Oct 01, 2022 09:30 AM Reporting Lab: [facility] [address] Performing Lab: [facility] [address] CREATININE 0.8 0.7-1.2 UREA NITROGEN 20 8-26 GLUCOSE 146 H 70-100 SODIUM 140 136-145 POTASSIUM 4.0 3.5-5.1 CHLORIDE 103 98-107 CO2 28 22-29 CALCIUM 9.3 8.4-10.2 MAGNESIUM 1.7 1.6-2.6 ANION GAP 9 5-15 CREAT EGFR(CKD-EPI) >90 >60 Oct 01, 2022 09:41 AM [place] ([facility]) CBC Specimen Type: BLOOD No comment entered. Ordering Provider: DAMIAN RYAN Report Released Date/Time: Oct 01, 2022 09:30 AM Reporting Lab: [facility] [address] Performing Lab: [facility] [address] WBC 9.32 4.0-11.0 RBC 5.08 4.6-6.2 HGB 13.3 L 13.5-17.9 HCT 42.3 41-54 MCV 83.3 80-100 MCH 26.2 L 27-33 MCHC 31.4 L 32.0-37.5 PLT 484 H 150-400 MPV 9.3 7.4-10.4 RDW 14.1 11.5-14.5 Encounter Notes: All associated encounter notes This section contains the clinical notes associated to the Encounter. Date/Time Encounter Note(s) Provider Source Oct 23, 2022 01:03 PM PHARMACY CONSULT: LOCAL TITLE: PHARMACY PRIOR AUTHORIZATION APPROVED CONSULT STANDARD TITLE: PHARMACY CONSULT DATE OF NOTE: OCT 23, 2022@13:03 ENTRY DATE: OCT 23, 2022@13:03:28 AUTHOR: KENN JONES COSIGNER: URGENCY: STATUS: COMPLETED The medical record has been reviewed with regard to this prior authorization drug request. Medication requested: GLUCOSE SENSOR FREESTYLE JULIO CESAR 2 Medication indication: BLOOD GLUCOSE MONITORING Medical history relevant to this request: Diabetes; Endo team endorsed. The request is approved - No formulary-preferred alternative Active Outpatient Medications (including Supplies): ACCU-CHEK GUIDE [...] DAY NEEDED TO AFFECTED AREA FOR PAIN EMPAGLIFLOZIN 25MG TAB TAKE ONE-HALF TABLET BY MOUTH EVERY ACTIVE DAY FOR HEART FAILURE FUROSEMIDE 40MG TAB TAKE ONE TABLET BY MOUTH EVERY MORNING ACTIVE FOR EXCESS FLUID GLUCOSE SENSOR FREESTYLE JULIO CESAR 2 USE 1 SENSOR EVERY 14 PENDING DAYS INSULIN,ASPART(EQV-NOVLG)10 0UN/ML FLXPEN INJECT 10 UNITS ACTIVE UNDER THE SKIN THREE TIMES A DAY WITH MEALS FOR DIABETES - SKIP DOSE IF NOT EATING INSULIN,GLARGINE 100 UNT/ML 3ML SOLOSTAR INJECT 55 UNITS ACTIVE UNDER THE SKIN EVERY MORNING FOR DIABETES LOSARTAN 50MG TAB TAKE ONE TABLET BY MOUTH EVERY DAY ACTIVE (S) METFORMIN HCL 1000MG TAB TAKE ONE TABLET BY MOUTH EVERY ACTIVE MORNING FOR DIABETES METOPROLOL SUCCINATE 50MG SA TAB TAKE ONE TABLET BY MOUTH ACTIVE EVERY DAY FOR HEART PROTECTION NEEDLE,PEN 31G,8MM USE 1 NEEDLE UNDER THE SKIN DIRECTED ACTIVE FOR INSULIN INJECTIONS *DISPOSE OF IN A HARD-PLASTIC CONTAINER WITH A SCREW-ON LID CONTACT [facility] FOR PROPER DISPOSAL NITROGLYCERIN 0.4MG SL TAB DISSOLVE ONE TABLET UNDER THE ACTIVE TONGUE EVERY 5 MINUTES FOR UP TO 3 DOSES IF NEEDED FOR CHEST PAIN Non-VA CYCLOBENZAPRINE HCL 10MG TAB 10MG MOUTH THREE TIMES ACTIVE A DAY NEEDED /hi/ KENN JONES Pharm.D. Signed: 10/23/2022 13:08 KENN JONES [facility]
--- OUTSIDE RECORDS SUMMARY | 2023-08-14 09:39 | XMS_ITS | Encounter Summary ---
Author Name [facility] Organization [facility] Address [address] [place] [id number] Support Name Relationship Address Phone BREE KHOURY Next of Kin [address] [place] [address] BREE KHOURY Emergency Contact [address] [place] [address] Insurance Providers: All historical and [...] MCR (WNR) MEDICARE ADVANTAGE [facility] ([facility]) Jul 29, 2021 [id number] [phone] KHOURY,WE S[place] PATIENT [employer] MCR (WNR) MEDICARE ADVANTAGE [facility] (WNR) Jul 29, 2015 [id number] KHOURY,[place] PATIENT [employer] MCR (WNR) MEDICARE ADVANTAGE [facility] (WNR) Jul 29, 2015 [id number] [phone] KHOURY,[place] PATIENT [employer] MCR (WNR) MEDICARE ADVANTAGE [facility] (WNR) Jul 29, 2015 [id number] [phone] KHOURY,WE SLEY PATIENT Selected Encounter This section includes the information on record at CO for the Encounter. Date/Time Encounter Type Encounter Description Reason Provider Source Oct 01, 2022 08:45 AM OFFICE O/P EST MOD 30-39 MIN PRIMARY CARE/MEDICINE ICD-10-CM I50.9 Heart failure, unspecified ADRIENNE CROW Encounter Template Text not used by CO Assessments - Encounter Diagnoses This section includes the primary and secondary diagnoses documented for the Encounter. Date/Time Primary/Secondary Diagnosis Diagnosis Name Provider Source Oct 01, 2022 11:29 AM PRIMARY Heart failure, unspecified ADRIENNE CROW ([facility]) Oct 01, 2022 11:29 AM SECONDARY Athscl heart disease of [place] coronary artery w/o ang pctrs ADRIENNE CROW ([facility]) Oct 01, 2022 11:29 AM SECONDARY Nonrheumatic aortic (valve) stenosis ADRIENNE CROW ([facility]) Oct 01, 2022 11:29 AM SECONDARY Type 2 diabetes mellitus without complications ADRIENNE CROW ([facility]) Plan of Treatment: Future Appointments (+ 6 months) and Future Tests (+/- 45 days) The Plan of Treatment section includes future care activities for the patient [facility] This section includes future appointments and future orders which are active, pending or scheduled. Future Appointments This section includes appointments that were scheduled to occur 6 months from the date of the Encounter, up to a maximum of 20 appointments. The data comes from all [place] treatment facilities. Appointment Date/Time Appointment Type Appointme nt Facility Name Oct 15, 2022 02:00 PM AMBULATORY - NONE [place] [facility] Oct 19, 2022 10:30 AM AMBULATORY - NONE [facility] Oct 22, 2022 12:15 PM AMBULATORY - MEDICINE [facility] Oct 22, 2022 12:30 PM AMBULATORY - MEDICINE [facility] Nov 16, 2022 10:30 AM AMBULATORY - [...] 2023 01:00 PM [facility]ICINE [facility] Feb 07, 2023 02:15 PM AMBULATORY - MEDICINE [facility] Feb 18, 2023 11:00 AM AMBULATORY - MEDICINE [facility] Feb 19, 2023 08:00 AM AMBULATORY - [...] and Hematology Lab Results on record with CO for the patient. Radiology Reports and Pathology Reports are provided separately, in subsequent sections. Lab Results This section contains the Chemistry/Hematology Results that were resulted 30 days before or 30 daysafter the date of the Encounter. Date/Time Source Result Type Result - Unit Interpretation Reference Range Comment Oct 22, 2022 01:51 PM [facility] BNP Specimen Type: PLASMA No comment entered. Ordering Provider: OSMANY RIVERA Report Released Date/Time: Oct 22, 2022 01:37 PM Reporting Lab: [facility] [id number] Performing Lab: [facility] [address] BNP 105 H <99 Oct 22, 2022 01:51 PM [facility] LIPID PANEL,NON-FASTING Specimen Type: PLASMA No comment entered. Ordering Provider: OSMANY RIVERA Report Released Date/Time: Oct 22, 2022 01:37 PM Reporting Lab: [facility] [id number] Performing Lab: [facility] [address] CHOLESTEROL 118 <199 .HDL 30 L >40 LDL CALCULATION 67 <99 VLDL CALCULATION 21 <29 NON HDL CHOLESTEROL 88 <129 TRIG(NON FASTING) 106 <149 Oct 01, 2022 09:41 AM [facility] ([facility]) BASIC METABOLIC PANEL+MG Specimen Type: PLASMA No comment entered. Ordering Provider: ADRIENNE CROW Report Released Date/Time: Oct 01, 2022 09:30 AM Reporting Lab: [facility] [id number] Performing Lab: [facility] [address] CREATININE 0.8 0.7-1.2 UREA NITROGEN 20 8-26 GLUCOSE 146 H 70-100 SODIUM 140 136-145 POTASSIUM 4.0 3.5-5.1 CHLORIDE 103 98-107 CO2 28 22-29 CALCIUM 9.3 8.4-10.2 MAGNESIUM 1.7 1.6-2.6 ANION GAP 9 5-15 CREAT EGFR(CKD-EPI) >90 >60 Oct 01, 2022 09:41 AM [facility] ([facility]) CBC Specimen Type: BLOOD No comment entered. Ordering Provider: ADRIENNE CROW Report Released Date/Time: Oct 01, 2022 09:30 AM Reporting Lab: [facility] [address] Performing Lab: [facility] [address] WBC 9.32 4.0-11.0 RBC 5.08 4.6-6.2 HGB 13.3 L 13.5-17.9 HCT 42.3 41-54 MCV 83.3 80-100 MCH 26.2 L 27-33 MCHC 31.4 L 32.0-37.5 PLT 484 H 150-400 MPV 9.3 7.4-10.4 RDW 14.1 11.5-14.5 Sep 04, 2022 11:47 AM [facility] ([facility]) URINALYSIS Specimen Type: URINE No comment entered. Ordering Provider: ADRIENNE CROW Report Released Date/Time: Sep 04, 2022 11:40 AM Reporting Lab: [facility] [address] Performing Lab: [facility] [address] URINE COLOR COLORLESS SPECIFIC GRAVITY 1.022 1.003-1.03 [...] NEGATIVE NEGATIVE Sep 04, 2022 11:46 AM [facility] KSENIA-65 ANTIBODY Specimen Type: SERUM Comment: REFERENCE RANGE: <5 IU/mL This test was performed using the GAD65 ZOHRA method, which is standardized against the International reference preparation 97/550. Test Performed by Elvin Cody, [facility], [address] [place], [place] M.D., Ph.D., Director of Laboratories , CLIA [id number] Ordering Provider: JUANCARLOS BOYKIN Report Released Date/Time: Jul 19, 2022 09:30 AM Reporting Lab: [facility] [id number] Performing Lab: [address] KSENIA-65 ANTIBODY >250 H SEE BELOW Sep 04, 2022 11:46 AM [facility] C-PEPTIDE Specimen Type: SERUM Comment: Test Performed by [facility], [facility], [address] [place] [address] [place] M.D., Ph.D., Director of Laboratories , CLIA [id number] Ordering Provider: JUANCARLOS BOYKIN Report Released Date/Time: Jul 19, 2022 09:30 AM Reporting Lab: [facility] [address] Performing Lab: [address] C-PEPTIDE <0.10 L 0.80-3.85 Sep 04, 2022 11:46 AM [facility] GLUCOSE Specimen Type: PLASMA No comment entered. Ordering Provider: JUANCARLOS BOYKIN Report Released Date/Time: Jul 19, 2022 09:30 AM Reporting Lab: [facility] [address] Performing Lab: [facility] [address] GLUCOSE 130 H 70-100 Sep 04, 2022 11:46 AM [facility]) HEMOGLOBIN A1C Specimen Type: BLOOD Comment: [...] Sep 04, 2022 11:36 AM Reporting Lab: [facility] [address] Performing Lab: [facility] [address] HEMOGLOBIN A1C 9.5 H 4.0-6.0 Sep 04, 2022 11:46 AM [facility] ([facility]) BNP Specimen Type: PLASMA No comment entered. Ordering Provider: ADRIENNE CROW Report Released Date/Time: Sep 04, 2022 11:36 AM Reporting Lab: [facility] [phone] Performing Lab: [facility] [address] BNP <10 <99 Sep 04, 2022 11:46 AM [facility] ([facility]) CBC Specimen Type: BLOOD No comment entered. Ordering Provider: ADRIENNE CROW Report Released Date/Time: Sep 04, 2022 11:37 AM Reporting Lab: [facility] [address] Performing Lab: [facility] [address] WBC 7.80 4.0-11.0 RBC 5.42 4.6-6.2 HGB 14.8 13.5-17.9 HCT 44.9 41-54 MCV 82.8 80-100 MCH 27.3 27-33 MCHC 33.0 32.0-37.5 PLT 355 150-400 MPV 9.5 7.4-10.4 RDW 14.3 11.5-14.5 Sep 04, 2022 11:46 AM [facility] ([facility]) COMPREHENSIVE METABOLIC PANEL+MG Specimen Type: PLASMA No comment entered. Ordering Provider: ADRIENNE CROW Report Released Date/Time: Sep 04, 2022 11:36 AM Reporting Lab: [facility] [address] Performing Lab: [facility] [address] CREATININE 0.8 0.7-1.2 UREA NITROGEN 18 8-26 GLUCOSE 130 H 70-100 SODIUM 139 136-145 POTASSIUM 3.8 3.5-5.1 CHLORIDE 102 98-107 CO2 25 22-29 CALCIUM 9.6 8.4-10.2 PROTEIN,TOTAL 7.7 6.0-8.3 ALBUMIN 4.0 3.5-5.2 BILIRUBIN, TOTAL 0.5 0.2-1.2 MAGNESIUM 1.7 1.6-2.6 ANION GAP 12 5-15 ALKALINE PHOSPHATASE 108 40-150 ALT/SGPT 17 <55 AST/SGOT 18 <34 CREAT EGFR(CKD-EPI) >90 >60 Vital Signs: All taken on the encounter date This section contains inpatient and outpatient Vital Signs collected on the date of the Encounter. Date/Time Temperature Pulse Blood Pressure Respiratory Rate SP02 Pain Height Weight Body Mass Index Source Oct 01, 2022 08:52 AM 98 F 66 /min 132/66 mm[Hg] 20 /min 97 % 7 196 lb 30 [facility] ([facility]) Social History: Smoking Status (Most current) and Tobacco Use (All prior to encounter date) This section includes the most current, and the historical, smoking and tobacco- related health factors from the CO facility where the Encounter took place. Current Smoking Status This section includes the most current smoking, or tobacco-related health factor, from the CO facility where the Encounter took place. Date/Time Current Smoking Status Comment Facil ity Jul 12, 2022 09:45 AM VA-TOBACCO FORMER USER [facility] ([facility]) Tobacco Use History This section includes a history of the smoking, or tobacco-related health factors, that were collected on or before the date of the Encounter. The data comes from the CO facility where the Encounter took place. Date/Time Smoking Status/Tobacco Use Comment F acility Jul 12, 2022 09:45 AM VA-TOBACCO QUIT 5 TO < 15 YRS [facility] ([facility]) Jul 13, 2021 09:15 AM VA-TOBACCO FORMER USER [facility] ([facility]) Jul 13, 2021 09:15 AM VA-TOBACCO QUIT 5 TO < 15 YRS [facility] ([facility]) Jun 28, 2020 09:15 AM VA-TOBACCO FORMER USER [facility] ([facility]) Jun 28, 2020 09:15 AM VA-TOBACCO QUIT 5 TO < 15 YRS [facility] ([facility]) Mar 23, 2019 03:20 PM VA-TOBACCO FORMER USER [facility] ([facility]) Mar 23, 2019 03:20 PM VA-TOBACCO QUIT 5 TO < 15 YRS [facility] ([facility]) Apr 01, 2018 02:59 PM VA-TOBACCO FORMER USER [facility] ([facility]) Apr 01, 2018 02:59 PM VA-TOBACCO QUIT 5 TO < 15 YRS [facility] ([facility]) Jun 28, 2017 01:51 PM FORMER TOBACCO USER 7Y OR GREATE R [facility] ([facility]) Jun 29, 2016 08:43 AM FORMER TOBACCO USE >1Y <7Y [facility] ([facility]) Radiology Reports: +/- 30 days of [...] the Encounter. The data comes from all [place] treatment facilities. Date/Time Radiology Report Provider Source Sep 04, 2022 11:46 AM CHEST 2 VIEWS PA A ND LAT: JULIUS KHOURY [id number] [phone] Exm Date: SEP 04, 2022@11:46 Req Phys: ADRIENNE CROW Pat Loc: [facility] PACT ALTAGRACIA LUX (Req'g Loc Img Loc: [facility] Service: Unknown (Case [id number] COMPLETE) CHEST 2 VIEWS PA AND LAT (RAD Detailed) CPT:48245 Reason for Study: ankle sweling, sob Clinical History: [place] IS NOT under investigation for COVID-19 or is COVID-19 negative ankle swelling, sob Responsible provider name and phone number to notify for critical findings if other than user placing the order and pager listed below: User placing orders pager: adrienne crow LAST CREATININE 0.9 (07/12/22) Report Status: Verified Date Reported: SEP 04, 2022 Date Verified: SEP 04, 2022 Manager Title E-Sig:/ES/GENE LORA MD Report: DATE/TIME REGISTERED: 09/04/2022 [...] Primary Interpreting Staff: GENE LORA MD, RADIOLOGIST (Manager Title) /GENE RIVAS [facility] Encounter Notes: All associated encounter notes This section contains the clinical notes associated to the Encounter. Date/Time Encounter Note(s) Provider Source Oct 02, 2022 08:26 AM LETTERS: LOCAL TITLE: FOLLOW UP RESULTS LETTER STANDARD TITLE: LETTERS DATE OF NOTE: OCT 02, 2022@08:26 ENTRY DATE: OCT 02, 2022@08:26:39 AUTHOR: ADRIENNE CROW EXP COSIGNER: URGENCY: STATUS: COMPLETED [facility] [address] [place] [address] Sep JULIUS KHOURY [address] [facility] [id number] Dear [place]: I am writing to inform you of the results of the tests you had done at the [facility]. The tests below were performed and are satisfactory unless otherwise noted. - Complete Blood Count (red/white blood cell counts and platelets) White count: WBC 9.32 (10/01/22) (normal is 4.0-11.0) Hemoglobin: HGB 13.3 L (10/01/22) (normal Male is 13.5-17.9) (normal Female is 11.5-16) Hematocrit: HCT 42.3 (10/01/22) (normal Male is 41-54) (normal Female is 34.5-48) Platelets: PLT 484 H (10/01/22) (normal is 150-400) - Electrolytes including sodium and potassium SODIUM 140 (10/01/22) (normal is 137-144) POTASSIUM 4.0 (10/01/22) (normal is 3.5-5.1) CHLORIDE 103 (10/01/22) (normal is 98-107) CO2 28 (10/01/22) (normal is 22-29) UREA NITROGEN 20 (10/01/22) (normal Male is 8-26) (normal Female is 8-20) CREATININE 0.8 (10/01/22) (normal Male is 0.7-1.2) (normal Female is 0.5-1.0) GLUCOSE 146 H (10/01/22) (normal is 70-105) CALCIUM 9.3 (10/01/22) (normal is 8.4-10.2) MAGNESIUM 1.7 (10/01/22) (normal is 1.6-2.6) EGFR (03/01) 07/13/21 @ 1003 82 CREATININE EGFR (CKD-EPI) 10/01/22 @ 0941 >90 (normal is >/=60) Comments: If you have any further questions or problems, please contact our nursing staff or me at the following number: [phone] ([place]) Sincerely, ADRIENNE CROW [facility] physician ADRIENNE CROW [facility] ([facility]) Oct 01, 2022 11:06 AM PRIMARY CARE NOTE: LOCAL TITLE: [facility] PROGRESS NOTE-[facility] STANDARD TITLE: PRIMARY CARE NOTE DATE OF NOTE: OCT 01, 2022@11:06 ENTRY DATE: OCT 01, 2022@11:06:27 AUTHOR: ADRIENNE CROW EXP COSIGNER: URGENCY: STATUS: COMPLETED Type of Visit:Julius Khoury is here for hospital fu. He woke up at 3 am 09/22/2022 with sweating and chest pains. Went to [place] [facility] with STEMI posterolateral. He had stent in left cifcumflex, couldn't do RCA so repeated and was successful 2nd time 09/25. He had an echo there that showed LVEF 40% with regional wall motion abnormalities. Also has mild aortic stenosis. He had some problems with fluid overload and was started on lasix. He was discharged 09/26/2022. He has had no further chest pain or sob. He was staerted on metoprolol sr50, lasix 40, clopidogrel 75mg, aspirin 81, atorvatastin increased to 80mg. HCTZ stopped. He used to take empagliflozin for diabetes. His labs suyggested that he has gone from having type 2 diabetes to insulin dependent diabetes-see labs. I advise resume empagliflozin 12.5 for chf. Reason for Visit: HPI: 77 years old MALE here for: Past Medical History: Active problems - Computerized [...] mellitus 10. CAD - Coronary Artery Disease ([facility] [id number]) - 09/22/2022 stemi with 2 stents 11. CHF - Congestive Heart Failure ([facility] [id number]) 12. Aortic valve stenosis - mild 09/2022 Past Surgical History: left inguinal hernia repair 08/2018 Family History: Father and sister with diabetes mellitus. Father of massive heart attack at his early 70's. Mother lived into 90s with dementia. His 40 year old son had a heart attack. Denies a family history of prostate or colon cancer. Social History: , and lives with who is in residential after heart surgery. Former smoker, smoked for 55 years. Doesn't drink. Review of Systems: HEENT-negative Respiratory-negative Cardiac-see HPI, no orthopnea Muskuloskeletal-pain in both hips radiating to groin. Neurologic-numbness in feet Psychiatric-negative Physical Exam: Temp: 98 F [36.7 C] (10/01/2022 08:52) Pulse:66 (10/01/2022 08:52) BP: 132/66 (10/01/2022 08:52) Resp: 20 (10/01/2022 08:52) Weight: 196 lb [88.90 kg] (10/01/2022 08:52) Pain: 7 (10/01/2022 08:52) O2 Sat: 97% (10/01/2022 08:52) BMI: 30.3 General: AAOx3, NAD HEENT: PERRL, EOMI, no scleral icterus, neck supple, CV: regular. 2/6 holosystolic murmur, soft s4. He has borderline jvd. Lungs: CTAB, no crackles, no wheezing Abd: soft, NT/ND, +BS, no rebound, no guarding Extrem: no c/c/2+ edema both ankles Neuro: alert, gait stiff and slow Labs: - Complete Blood Count (red/white blood cell counts and platelets) White count: WBC 7.80 (09/04/22) (normal is 4.0-11.0) Hemoglobin: HGB 14.8 (09/04/22) (normal Male is 13.5-17.9) (normal Female is 11.5-16) Hematocrit: HCT 44.9 (09/04/22) (normal Male is 41-54) (normal Female is 34.5-48) Platelets: PLT 355 (09/04/22) (normal is 150-400) - Electrolytes including sodium and potassium SODIUM 139 (09/04/22) (normal is 136-145) POTASSIUM 3.8 (09/04/22) (normal is 3.5-5.0) CHLORIDE 102 (09/04/22) (normal is 98-107) CO2 25 (09/04/22) (normal is 21-32) UREA NITROGEN 18 (09/04/22) (normal Male is 8-26) (normal Female = 10-20) CREATININE 0.8 (09/04/22) (normal Male is 0.7-1.2) (normal Female is 0.5-1.0) GLUCOSE 130 H (09/04/22) (normal is 70-100) CALCIUM 9.6 (09/04/22) (normal is 8.5-10.1) EGFR (03/01) 07/13/21 @ 1003 82 CREATININE EGFR (CKD-EPI) 09/04/22 @ 1146 >90 (normal is >/=60) - Liver function Tests AST/SGOT 18 (09/04/22) (normal is 15-37) ALT/SGPT 17 (09/04/22) (normal is 13-61) BILIRUBIN, TOTAL 0.5 (09/04/22) (normal is 0.2-1.0) - Cholesterol Tests (HDL = good and LDL = bad) CHOLESTEROL____ (prefer less than 200) TRIGLYCERIDE____ (prefer less than 150) HDL____ (prefer more than 39) LDL CALCULATION____ (prefer less than 100) MEASURED LDL____ (prefer less than 100) - Glycosylated Hemoglobin (good diabetic control if less than 7.0) HEMOGLOBIN A1C 9.5 H (09/04/22) (normal range is 4.0-6.0) POC HGB A1C____ Essential Medication List - reviewed with Patient/Caregiver FACILITY ALLERGY/ADR -------- WARNING: Connection to Remote Data Currently Down [facility] LISINOPRIL [facility] PIOGLITAZONE [facility] SEMAGLUTIDE [facility] WELLBUTRIN Active Medications: + +--------+- -------+--------+--------+ Medication (Local) New Med Old Dose New Dose Discontd + +--------+- -------+--------+--------+ ACCU-CHEK GUIDE (GLUCOSE) TEST STRIP Directions: USE 1 STRIP TOPICALLY FOUR TIMES A DAY TO CHECK BLOOD SUGAR--USE WITHIN 3 MINUTES OF REMOVING FROM CONTAINER Expires: 09/20/23 Status: ACTIVE + +--------+- -------+--------+--------+ ASPIRIN 81MG EC TAB Directions: TAKE ONE TABLET BY MOUTH EVERY DAY FOR HEART DISEASE Expires: 09/20/23 Status: ACTIVE + +--------+- -------+--------+--------+ CYANOCOBALAMIN 1000MCG TAB Directions: TAKE ONE TABLET BY MOUTH EVERY DAY FOR B12 SUPPLEMENT Expires: 09/20/23 Status: ACTIVE + +--------+- -------+--------+--------+ INSULIN,ASPART 100UN/ML RENATE FLEXPEN 3ML Directions: INJECT 10 UNITS UNDER THE SKIN THREE TIMES A DAY WITH MEALS FOR DIABETES - SKIP DOSE IF NOT EATING Expires: 09/05/23 Status: ACTIVE + +--------+- -------+--------+--------+ METFORMIN HCL 1000MG TAB Directions: TAKE ONE TABLET BY MOUTH EVERY MORNING FOR DIABETES Expires: 09/19/23 Status: ACTIVE + +--------+- -------+--------+--------+ NEEDLE,PEN 31G,8MM Directions: USE 1 NEEDLE UNDER THE SKIN DIRECTED FOR INSULIN INJECTIONS *DISPOSE OF IN A HARD-PLASTIC CONTAINER WITH A SCREW-ON LID CONTACT GARBAGE HERNÁN FOR PROPER DISPOSAL Expires: 07/20/23 Status: ACTIVE + +--------+- -------+--------+--------+ LOSARTAN 50MG TAB Directions: TAKE ONE TABLET BY MOUTH EVERY DAY Expires: 06/15/23 Status: ACTIVE/SUSP + +--------+- -------+--------+--------+ Pending Medications: + +--------+- -------+--------+--------+ Medication (Local) New Med Old Dose New Dose Discontd + +--------+- -------+--------+--------+ ATORVASTATIN CALCIUM 80MG TAB Directions: TAKE ONE TABLET BY MOUTH AT BEDTIME FOR CHOLESTEROL Quantity: 90 Status: PENDING + +--------+- -------+--------+--------+ CLOPIDOGREL BISULFATE 75MG TAB Directions: TAKE ONE TABLET BY MOUTH EVERY DAY Quantity: 90 Status: PENDING + +--------+- -------+--------+--------+ DICLOFENAC NA 1% TOP GEL Directions: APPLY 4 GRAMS TOPICALLY THREE TIMES A DAY NEEDED Quantity: 200 Status: PENDING + +--------+- -------+--------+--------+ EMPAGLIFLOZIN 25MG TAB Directions: TAKE ONE-HALF TABLET BY MOUTH EVERY DAY Quantity: 45 Status: PENDING + +--------+- -------+--------+--------+ FUROSEMIDE 40MG TAB Directions: TAKE ONE TABLET BY MOUTH EVERY MORNING Quantity: 90 Status: PENDING + +--------+- -------+--------+--------+ INSULIN GLARGINE 100UNIT/ML INJ Directions: INJECT 55UNITS UNDER THE SKIN EVERY MORNING Quantity: 4 Status: PENDING + +--------+- -------+--------+--------+ METOPROLOL SUCCINATE 50MG SA TAB Directions: TAKE ONE TABLET BY MOUTH EVERY DAY Quantity: 90 Status: PENDING + +--------+- -------+--------+--------+ NITROGLYCERIN 0.4MG SL TAB Directions: DISSOLVE ONE TABLET UNDER THE TONGUE EVERY 5 MINUTES FOR UP TO 3 DOSES IF NEEDED FOR CHEST PAIN Quantity: 100 Status: PENDING + +--------+- -------+--------+--------+ Non-VA Medications: + +--------+- -------+--------+--------+ Medication (Local) New Med Old Dose New Dose Discontd + +--------+- -------+--------+--------+ CYCLOBENZAPRINE HCL 10MG TAB Directions: 10MG MOUTH THREE TIMES A DAY NEEDED Status: ACTIVE + +--------+- -------+--------+--------+ Discontinued Medications (Past 90 days): + +--------+- -------+--------+--------+ Medication (Local) New Med Old Dose New Dose Discontd + +--------+- -------+--------+--------+ ACCU-CHEK GUIDE (GLUCOSE) TEST STRIP X Directions: USE 1 STRIP TOPICALLY FOUR TIMES A DAY TO CHECK BLOOD SUGAR--USE WITHIN 3 MINUTES OF REMOVING FROM CONTAINER Status: DISCONTINUED + +--------+- -------+--------+--------+ EMPAGLIFLOZIN 25MG TAB X Directions: TAKE ONE TABLET BY MOUTH EVERY DAY Status: DISCONTINUED + +--------+- -------+--------+--------+ EMPAGLIFLOZIN 25MG TAB X Directions: TAKE ONE TABLET BY MOUTH EVERY DAY Status: DISCONTINUED + +--------+- -------+--------+--------+ HYDROCHLOROTHIAZIDE 25MG TAB X Directions: TAKE ONE TABLET BY MOUTH EVERY DAY FOR BLOOD PRESSURE Status: DISCONTINUED + +--------+- -------+--------+--------+ INSULIN NPH HUMAN 100 UNIT/ML NOVOLIN N X Directions: INJECT 30 UNITS UNDER THE SKIN EVERY MORNING AND INJECT 16 UNITS EVERY EVENING FOR DIABETES REFRIGERATE UNTIL OPENED Status: DISCONTINUED + +--------+- -------+--------+--------+ INSULIN REG HUMAN 100 UNIT/ML NOVOLIN R X Directions: INJECT 22 UNITS UNDER THE SKIN EVERY MORNING AND INJECT 20 UNITS EVERY EVENING REFRIGERATE Status: DISCONTINUED + +--------+- -------+--------+--------+ INSULIN SYRINGE 1ML 31G 8MM X Directions: USE 1 SYRINGE UNDER THE SKIN DIRECTED *DISPOSE OF IN A HARD-PLASTIC CONTAINER WITH A SCREW-ON LIDCONTACT MACKENZIE JIM FOR PROPER DISPOSAL Status: DISCONTINUED + +--------+- -------+--------+--------+ INSULIN,ASPART 100UN/ML RENATE FLEXPEN 3ML X Directions: INJECT 10 UNITS UNDER THE SKIN THREE TIMES A DAY WITH MEALS FOR DIABETES SKIP DOSE IF NOT EATING Status: DISCONTINUED + +--------+- -------+--------+--------+ INSULIN,ASPART 100UNIT/ML PENFILL 3ML X Directions: INJECT 6 UNITS UNDER THE SKIN EVERY MORNING AND INJECT 8 UNITS TWICE A DAY DIABETES INJECT IMMEDIATELY BEFORE MEAL Status: DISCONTINUED + +--------+- -------+--------+--------+ SEMAGLUTIDE 0.5MG/0.375ML INJ PEN 1.5ML Directions: INJECT 0.25MG UNDER THE SKIN EVERY WEEK FOR 4 WEEKS, THEN INJECT 0.5MG EVERY WEEK FOR DIABETES Status: DISCONTINUED + +--------+- -------+--------+--------+ ATORVASTATIN CALCIUM 40MG TAB X Directions: TAKE ONE TABLET BY MOUTH AT BEDTIME FOR CHOLESTEROL Status: DISCONTINUED (EDIT) + +--------+- -------+--------+--------+ INSULIN,ASPART 100UN/ML RENATE FLEXPEN 3ML X Directions: INJECT 6 UNITS UNDER THE SKIN EVERY MORNING AND INJECT 8 UNITS EVERYDAY AT NOON AND INJECT 8 UNITS EVERY EVENING FOR DIABETES Status: DISCONTINUED (EDIT) + +--------+- -------+--------+--------+ INSULIN,GLARGINE 100 UNT/ML 3ML SOLOSTAR X Directions: INJECT 40 UNITS UNDER THE SKIN EVERY MORNING FOR DIABETES Status: DISCONTINUED (EDIT) + +--------+- -------+--------+--------+ METFORMIN HCL 1000MG TAB X Directions: TAKE ONE TABLET BY MOUTH TWO TIMES A DAY FOR DIABETES FOR DIABETES Status: DISCONTINUED (EDIT) + +--------+- -------+--------+--------+ Assessment/Plan: 1. Recent STEMI,sp stents. Will need to stay on clopidogrel for 1 year. I advised cardiac rehab. 2. Congestive heart failure-will continue lasix . Add empagliflozin, 12.5mg/day. May be able to reduce lasix dose as other meds titrated. Will consult cardiology for medication review, suggestions for fu. Also has aortic stenosis. 3. Diabetes mellitus-has always been difficult to ctntrol and lab evaluation ordered by pharmacy suggests heis insulin dependint./ His blood sugar has been 160 up to 400 since he got [facility]. He's takin lantus 50 and aspart 16 with each meal. Will increase lantux to 55units. He has pharmacy fu appointment in few weeks. Labs today - Vaccinations: IM - Immunizations Immunization Series Date Facility Reaction Info COVID-19 ([employer]), VECTOR-NR, RS* 1 12/10/2020 [facility] * <C> COVID-19 ([employer]), MRNA, LNP-S, P* 2 08/30/2021 [facility] * <C> HEP B, ADULT 07/02/2011 [facility]* 05/17/2011 [facility] PNEUMOCOCCAL CONJUGATE PCV 13 06/29/2016 [facility] * <C> PNEUMOCOCCAL POLYSACCHARIDE PPV23 11/24/2012 [facility]* <C> 01/10/2004 [facility]* <C> TDAP B 07/12/2022 [facility] * 11/24/2012 [facility]* ZOSTER LIVE 06/29/2016 [facility] * <C> ZOSTER RECOMBINANT 2 10/03/2020 [facility] * 1 07/05/2020 [facility] * <C> See the Detailed Immunizations Health Summary Component[DIM] for Comments RTC in 3 months Clinical Reminders: /hi/ ADRIENNE CROW [facility] physician Signed: 10/01/2022 11:29 ADRIENNE CROW [facility] ([facility]) Oct 01, 2022 08:52 AM PRIMARY CARE [facility] FRANCISCO [facility]AVALETA NOTE: LOCAL TITLE: [facility] NURSING PROGRESS NOTE STANDARD TITLE: PRIMARY CARE NURSING NOTE DATE OF NOTE: OCT 01, 2022@08:52 ENTRY DATE: OCT 01, 2022@08:52:59 AUTHOR: AMARILIS SAMPSON EXP COSIGNER: URGENCY: STATUS: COMPLETED TYPE OF VISIT: Appointment Check In Type of appointment: In-person appointment REASON FOR VISIT: follow up on LE edema ALLERGIES: WELLBUTRIN (Jun 29, 2016) LISINOPRIL (Sep 25, 2018) PIOGLITAZONE (Feb 17, 2019) SEMAGLUTIDE (Jan 10, 2022) VITAL SIGNS: Blood Pressure: 132/66 (10/01/2022 08:52) Pulse: 66 (10/01/2022 08:52) Respiration: 20 (10/01/2022 08:52) Temperature: 98 F [36.7 C] (10/01/2022 08:52) Weight: 196 lb [88.90 kg] (10/01/2022 08:52) Height: 67.5 in [171.5 cm] (09/04/2022 11:01) BMI: 30.3 O2 Sat: 97% (10/01/2022 08:52) Pain: 7 (10/01/2022 08:52) PAIN SCREEN: Patient is having significant pain that they would like to talk to their provider about today. Old (Chronic) (began more than 6 months ago) Patient states their average pain this past week is 7 Patient states the average number on how the chronic pain affects their enjoyment of life the past week is 7 Patient states during the past week the average number on how the pain has interfered with their general activity is 7 Influenza Immunization: The patient declines to receive the recommended dose of seasonal influenza vaccine. Immunization: INFLUENZA, UNSPECIFIED FORMULATION Refusal Reason: PATIENT DECISION Patient refuses all immunization(s) in the FLU group Date Documented: 10/01/22 08:53 /hi/ AMARILIS SAMPSON LPN LPN [facility] Signed: 10/01/2022 08:54 AMARILIS SAMPSON ([facility])
--- OUTSIDE RECORDS SUMMARY | 2023-08-14 09:39 | XMS_ITS | Encounter Summary ---
Author Name [facility] Organization [facility] Affairs Address [address] [place] [id number] Support Name Relationship Address Phone BREE KHOURY Next of Kin [address] [place] [address] BREE KHOURY Emergency Contact [address] [place] [address] Insurance Providers: All historical and [...] Policy Vaughn [employer] MCR (WNR) MEDICARE ADVANTAGE [facility] (WNR) Jul 29, 2021 [id number] KHOURY,WE SLEY PATIENT [employer] MCR (WNR) MEDICARE ADVANTAGE MCR (WNR) Jul 29, 2015 [id number] KHOURY,WE SLEY PATIENT [employer] MCR (WNR) MEDICARE ADVANTAGE MCR (WNR) Jul 29, 2015 [id number] KHOURY,WE SLEY PATIENT [employer] MCR (WNR) MEDICARE ADVANTAGE [facility] (WNR) Jul 29, 2015 [id number] KHOURY,WE SLEY PATIENT Selected Encounter This section includes the information on record at [place] for the Encounter. Date/Time Encounter Type Encounter Description Reason Provider Source Oct 22, 2022 12:30 PM OFFICE O/P [place] 60-74 MIN CARDIOLOGY ICD-10-CM I25.10 Aths[facility] heart disease of [place] coronary artery w/o ang pctOSMANY Abraham A Shelby Encounter Template Text not used by [place] Assessments - Encounter Diagnoses This section includes the primary and secondary diagnoses documented for the Encounter. Date/Time Primary/Secondary Diagnosis Diagnosis Name Provider Source Oct 31, 2022 11:57 AM PRIMARY Athscl heart disease of [place] coronary artery w/o korin RIVERAPALOMO [facility] Oct 31, 2022 11:57 AM SECONDARY Essential (primary) hypertension MIGUELPALOMO Hood [facility] Oct 31, 2022 11:57 AM SECONDARY Heart failure, unspecified MIGUELPALOMO Hood [facility] Oct 31, 2022 11:57 AM SECONDARY Mixed hyperlipidemia JOEELADIAPALOMO Hood [facility] Oct 31, 2022 11:57 AM SECONDARY Nonrheumatic aortic (valve) stenosis MIGUELPALOMO Erwin [facility] Oct 31, 2022 11:57 AM SECONDARY Type 1 diabetes mellitus with diabetic neuropathy, unsp JOEPALOMO MONTILLA Erwin [facility] Oct 31, 2022 11:57 AM SECONDARY Type 1 diabetes mellitus with unspecified complications MIGUELPALOMO Erwin [facility] Plan of Treatment: Future Appointments (+ 6 months) and Future Tests (+/- 45 days) The Plan of Treatment section includes future care activities for the patient from all [place] [facility]. This section includes future appointments and future orders which are active, pending or scheduled. Future Appointments This section includes appointments that were scheduled to occur 6 months from the date of the Encounter, up to a maximum of 20 appointments. The data comes from all [place] treatment facilities. Appointment Date/Time Appointment Type Appointme [...] 2023 01:00 PM [facility] - [facility]ICINE [facility] Feb 07, 2023 02:15 PM [facility] Feb 18, 2023 11:00 AM AMBULATORY - MEDICINE [facility] Feb 19, 2023 08:00 AM AMBULATORY - NONE [facility] Feb 22, 2023 01:30 PM [facility] - MEDICINE [facility] Mar 04, 2023 02:30 PM AMBULATORY - MEDICINE [facility] Mar 12, 2023 11:30 AM AMBULATORY - NONE [facility] Apr 04, 2023 08:45 AM AMBULATORY - NONE [facility] Apr 09, 2023 01:45 PM AMBULATORY - NONE [facility] Apr 17, 2023 10:00 AM AMBULATORY - MEDICINE [facility] ([facility]) Lab Results: +/- 30 days of [...] Range Comment Oct 22, 2022 01:51 PM [facility] BNP Specimen Type: PLASMA No comment entered. Ordering Provider: PALOMO RIVERA Report Released Date/Time: Oct 22, 2022 01:37 PM Reporting Lab: [facility] [id number] Performing Lab: [facility] [id number] BNP 105 H <99 Oct 22, 2022 01:51 PM [facility] LIPID PANEL,NON-FASTING Specimen Type: PLASMA No comment entered. Ordering Provider: PALOMO RIVERA Report Released Date/Time: Oct 22, 2022 01:37 PM Reporting Lab: [facility] [id number] Performing Lab: [facility] [id number] CHOLESTEROL 118 <199 .HDL 30 L >40 LDL CALCULATION 67 <99 VLDL CALCULATION 21 <29 NON HDL CHOLESTEROL 88 <129 TRIG(NON FASTING) 106 <149 Oct 01, 2022 09:41 AM [facility] ([facility]) BASIC METABOLIC PANEL+MG Specimen Type: PLASMA No comment entered. Ordering Provider: DAMIAN RYAN Report Released Date/Time: Oct 01, 2022 09:30 AM Reporting Lab: [facility] [id number] Performing Lab: [facility] [phone] CREATININE 0.8 0.7-1.2 UREA NITROGEN 20 8-26 GLUCOSE 146 H 70-100 SODIUM 140 136-145 POTASSIUM 4.0 3.5-5.1 CHLORIDE 103 98-107 CO2 28 22-29 CALCIUM 9.3 8.4-10.2 MAGNESIUM 1.7 1.6-2.6 ANION GAP 9 5-15 CREAT EGFR(CKD-EPI) >90 >60 Oct 01, 2022 09:41 AM [facility] ([facility]) CBC Specimen Type: BLOOD No comment entered. Ordering Provider: DAMIAN RYAN Report Released Date/Time: Oct 01, 2022 09:30 AM Reporting Lab: [facility] [id number] Performing Lab: [facility] [id number] WBC 9.32 4.0-11.0 RBC 5.08 4.6-6.2 HGB 13.3 L 13.5-17.9 HCT 42.3 41-54 MCV 83.3 80-100 MCH 26.2 L 27-33 MCHC 31.4 L 32.0-37.5 PLT 484 H 150-400 MPV 9.3 7.4-10.4 RDW 14.1 11.5-14.5 Vital Signs: All taken on the encounter date This section contains inpatient and outpatient Vital Signs collected on the date of the Encounter. Date/Time Temperature Pulse Blood Pressure Respiratory Rate SP02 Pain Height Weight Body Mass Index Source Oct 22, 2022 12:15 PM 117/68 mm[Hg] [facility] Oct 22, 2022 12:09 PM 97 F 67 /min 145/73 mm[Hg] 16 /min 97 % 6 199.1 lb 31 [facility] Encounter Notes: All associated encounter notes This section contains the clinical notes associated to the Encounter. Date/Time Encounter Note(s) Provider Source Oct 22, 2022 12:13 PM INTERNAL MEDICINE OUTPATIENT NOTE: LOCAL TITLE: MEDICINE CLINIC NURSING NOTE STANDARD TITLE: INTERNAL MEDICINE OUTPATIENT NOTE DATE OF NOTE: OCT 22, 2022@12:13 ENTRY DATE: OCT 22, 2022@12:13:31 AUTHOR: MARLEE PINTO EXP COSIGNER: URGENCY: STATUS: COMPLETED TYPE OF VISIT: Appointment Check In Type of appointment: In-person appointment REASON FOR VISIT: Cardiac Intertven ALLERGIES: WELLBUTRIN (Jun 29, 2016) LISINOPRIL (Sep 25, 2018) PIOGLITAZONE (Feb 17, 2019) SEMAGLUTIDE (Jan 10, 2022) VITAL SIGNS: Blood Pressure: 145/73, recheck 117/68 Pulse: 67 (10/22/2022 12:09) Respiration: 16 (10/22/2022 12:09) Temperature: 97 F [36.1 C] (10/22/2022 12:09) Weight: 199.1 lb [90.31 kg] (10/22/2022 12:09) Height: 67.5 in [171.5 cm] (09/04/2022 11:01) BMI: 30.8 O2 Sat: 97% (10/22/2022 12:09) Pain: 6 (10/22/2022 12:09) PAIN SCREEN: Patient is having significant pain that they would like to talk to their provider about today. Old (Chronic) (began more than 6 months ago) Patient states their average pain this past week is 9 Patient states the average number on how the chronic pain affects their enjoyment of life the past week is 9 Patient states during the past week the average number on how the pain has interfered with their general activity is 8 MEDICATION Over the Counter/Herbal Medications: The patient denies taking any outside medications or herbals. /hi/ MARLEE PINTO LPN ADMISSIONS CONSULTANT Signed: 10/22/2022 12:15 MARLEE PINTO [facility] Oct 22, 2022 10:16 AM CARDIOLOGY CONSULT: LOCAL TITLE: CARDIOLOGY CONSULT STANDARD TITLE: CARDIOLOGY CONSULT DATE OF NOTE: OCT 22, 2022@10:16 ENTRY DATE: OCT 22, 2022@10:16:26 AUTHOR: OSMANY RIVERA EXP COSIGNER: URGENCY: STATUS: COMPLETED CARDIOLOGY CONSULT Has ADDENDA From Service: [facility] PACT ALTAGRACIA LUX Requesting Provider: DAMIAN RYAN Reason for consult: Recent stemi at [facility], got 2 stents, had somechf, echo -ef40%, imild aortic stenosis History of Presenting Illness (HPI): Julius Khoury is a 77 year-old gentleman with a history of hypertension, [...] to seek evaluation. Upon arrival to the [facility] ED, he was hypertensive but [...] Cardiology consultation was recommended, for which he presents today. Since his NC, he has had no further episodes of chest pain or shortness of breath. He walks at the [employer] almost daily, traveling 2 times around for a total of 40 minutes. Prior to developing arthritis, he would be able to do this in approximately 24 minutes. He continues to have bilateral lower extremity edema, which is usually better during the day after he takes his Lasix and worse in the morning. He denies palpitations, PND, orthopnea, or lightheadedness. He weighs himself daily, weight has been between 190 and 200 pounds, averaging 194 pounds. He has not checked his blood pressure, however has a home blood pressure monitor at home. He reports his had open heart surgery on 09/21/2022. Review of Systems (ROS) as per HPI and otherwise negative with the following exceptions: Ongoing fatigue. He does not sleep well at night due to right shoulder pain, for which he sleeps in a chair most of the time. He had a dry cough with lisinopril, which is significantly improved following change to losartan. Arthritic discomfort of his left arm, knees, hips, hands, and right shoulder, arthritic discomfort limits his ability to walk. Allergies: WELLBUTRIN (Jun 29, 2016) LISINOPRIL (Sep [...] 12. Aortic valve stenosis - mild 09/2022 Relevant Active Medications: Active and Recently Outpatient [...] NEEDED TO AFFECTED AREA FOR PAIN 7) EMPAGLIFLOZIN 25MG TAB TAKE ONE-HALF TABLET BY MOUTH ACTIVE EVERY DAY FOR HEART FAILURE 8) FUROSEMIDE 40MG TAB TAKE ONE TABLET BY MOUTH EVERY ACTIVE MORNING FOR EXCESS FLUID 9) INSULIN,ASPART(EQV-NOVLG)100U N/ML FLXPEN INJECT 10 ACTIVE UNITS UNDER THE SKIN THREE TIMES A DAY WITH MEALS FOR DIABETES - SKIP DOSE IF NOT EATING 10) INSULIN,GLARGINE 100 UNT/ML 3ML SOLOSTAR INJECT 55 ACTIVE UNITS UNDER THE SKIN EVERY MORNING FOR DIABETES 11) LOSARTAN 50MG TAB TAKE ONE TABLET BY MOUTH EVERY DAY ACTIVE (S) 12) METFORMIN HCL 1000MG TAB TAKE ONE TABLET BY MOUTH ACTIVE EVERY MORNING FOR DIABETES 13) METOPROLOL SUCCINATE 50MG SA TAB TAKE ONE TABLET BY ACTIVE MOUTH EVERY DAY FOR HEART PROTECTION 14) NEEDLE,PEN 31G,8MM USE 1 NEEDLE UNDER THE SKIN ACTIVE DIRECTED FOR INSULIN INJECTIONS *DISPOSE OF IN A HARD-PLASTIC CONTAINER WITH A SCREW-ON LID CONTACT GARBAGE HAULER FOR PROPER DISPOSAL 15) NITROGLYCERIN 0.4MG SL TAB DISSOLVE ONE TABLET UNDER ACTIVE THE TONGUE EVERY 5 MINUTES FOR UP TO 3 DOSES IF NEEDED FOR CHEST PAIN Inactive Outpatient Medications Status 1) ACCU-CHEK GUIDE (GLUCOSE) TEST STRIP USE 1 STRIP DISCONTINUED TOPICALLY FOUR TIMES A DAY TO CHECK BLOOD SUGAR--USE WITHIN 3 MINUTES OF REMOVING FROM CONTAINER 2) ATORVASTATIN CALCIUM 40MG TAB TAKE ONE TABLET BY DISCONTINUED MOUTH AT BEDTIME FOR CHOLESTEROL (EDIT) 3) EMPAGLIFLOZIN 25MG TAB TAKE ONE TABLET BY MOUTH EVERY DISCONTINUED DAY 4) HYDROCHLOROTHIAZIDE 25MG TAB TAKE ONE TABLET BY MOUTH DISCONTINUED EVERY DAY FOR BLOOD PRESSURE 5) INSULIN NPH HUMAN 100 UNIT/ML NOVOLIN N INJECT 30 DISCONTINUED UNITS UNDER THE SKIN EVERY MORNING AND INJECT 16 UNITS EVERY EVENING FOR DIABETES REFRIGERATE UNTIL OPENED 6) INSULIN REG HUMAN 100 UNIT/ML NOVOLIN R INJECT 22 DISCONTINUED UNITS UNDER THE SKIN EVERY MORNING AND INJECT 20 UNITS EVERY EVENING REFRIGERATE 7) INSULIN SYRINGE 1ML 31G 8MM USE 1 SYRINGE UNDER THE DISCONTINUED SKIN DIRECTED *DISPOSE OF IN A HARD-PLASTIC CONTAINER WITH A SCREW-ON LIDCONTACT GARBAGE HAULER FOR PROPER DISPOSAL 8) INSULIN,ASPART 100UNIT/ML PENFILL 3ML INJECT 6 UNITS DISCONTINUED UNDER THE SKIN EVERY MORNING AND INJECT 8 UNITS TWICE A DAY DIABETES INJECT IMMEDIATELY BEFORE MEAL 9) INSULIN,ASPART(EQV-NOVLG)100U N/ML FLXPEN INJECT 10 DISCONTINUED UNITS UNDER THE SKIN THREE TIMES A DAY WITH MEALS FOR DIABETES SKIP DOSE IF NOT EATING 10) INSULIN,ASPART(EQV-NOVLG)100U N/ML FLXPEN INJECT 6 DISCONTINUED UNITS UNDER THE SKIN EVERY MORNING AND INJECT 8 (EDIT) UNITS EVERYDAY AT NOON AND INJECT 8 UNITS EVERY EVENING FOR DIABETES 11) INSULIN,GLARGINE 100 UNT/ML 3ML SOLOSTAR INJECT 40 DISCONTINUED UNITS UNDER THE SKIN EVERY MORNING FOR DIABETES (EDIT) 12) METFORMIN HCL 1000MG TAB TAKE ONE TABLET BY MOUTH TWO DISCONTINUED TIMES A DAY FOR DIABETES FOR DIABETES (EDIT) 13) SEMAGLUTIDE 0.5MG/0.375ML INJ PEN 1.5ML INJECT 0.25MG DISCONTINUED UNDER THE SKIN EVERY WEEK FOR 4 WEEKS, THEN INJECT 0.5MG EVERY WEEK FOR DIABETES Active Non-VA Medications Status 1) Non-VA CYCLOBENZAPRINE HCL 10MG TAB 10MG MOUTH THREE ACTIVE TIMES A DAY NEEDED 29 Total Medications Risk Factors: Gender, age, hypertension, [...] his sons who is 42 had an NC 2 years ago. He also has a stepson. 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 Tobacco use: Smoked 1 pack/day for 55 years, quit in 2012 ETOH use: Denies Illicit drug use: Denies VITAL SIGNS: Blood Pressure: 145/73, recheck 117/68 Pulse: 67 (10/22/2022 12:09) Respiration: 16 (10/22/2022 12:09) Temperature: 97 F [36.1 C] (10/22/2022 12:09) Weight: 199.1 lb [90.31 kg] (10/22/2022 12:09) Height: 67.5 in [171.5 cm] (09/04/2022 11:01) BMI: 30.8 O2 Sat: 97% (10/22/2022 12:09) Pain: 6 (10/22/2022 12:09) Physical Exam: General: Pleasant, no acute distress HEENT: Facial features symmetrical. Sclera nonicteric Cardiac: RRR. S1, S2. Grade II/ JACQUE noted best at R/LSB. Lungs: Clear to auscultation. Respirations nonlabored. Abdomen: Soft, nontender. Bowel sounds active. Extremities: 1+ lower extremity edema, varicosities noted. Neuro: Nonfocal. Psychiatric: Mood and affect are appropriate Most Recent Lab Results: LAB RESULTS TODAY - Oct 22, 2022@13:51 BNP 105 H pg/mL Ref: <=99 LIPID PANEL,NON-FASTING 10/22/2022: CHOLESTEROL 118 mg/dL Ref: <=199 TRIG(NON FASTING) 106 mg/dL Ref: <=149 .HDL 30 L mg/dL Ref: >=40 LDL CALCULATION 67 mg/dL Ref: <=99 VLDL CALCULATION 21 mg/dL Ref: <=29 NON HDL CHOLESTEROL 88 mg/dL Ref: <=129 Prior labs: BMP/Electrolytes: CREATININE 0.8 (10/01/22) UREA NITROGEN 20 (10/01/22) SODIUM 140 (10/01/22) CHLORIDE 103 (10/01/22) POTASSIUM 4.0 (10/01/22) CO2 28 (10/01/22) GLUCOSE 146 H (10/01/22) CREATININE 0.8 PLASMA (10/01/22 09:41) 0.8 PLASMA (09/04/22 11:46) 0.9 PLASMA (07/12/22 11:01) Collection DT Spec WBC HGB HCT PLT MCV 10/01/2022 09:41 BLOOD 9.32 13.3 L 42.3 484 H 83.3 09/04/2022 11:46 BLOOD 7.80 14.8 44.9 355 82.8 07/12/2022 11:01 BLOOD 7.05 16.5 50.1 299 84.3 LFTs: ALK PHOSPHATASE 108 (09/04/22) SGPT 17 (09/04/22) SGOT 18 (09/04/22) HEMOGLOBIN A1C 9.5 H (09/04/22) 09/04/2022 11:46 PLASMA BNP <10 pg/mL Ref: <=[address] [facility] reviewed: (ABNORMAL) Basic Metabolic Panel (09/26/2022 8:22 AM COFFEE BREWER): Potassium, S 4.3 Sodium, S 134 (L) Chloride, S 98 Bicarbonate, S 22 Anion Gap 14 BUN, S 25 (H) Creatinine 0.75 Estimated GFR (eGFR) >90 Calcium, Total, S 8.8 Glucose, S 367 (H) 70 - 140 mg/dL Basic Metabolic Panel (09/23/2022 3:06 AM COFFEE BREWER): Potassium, S 4.1 Sodium, S 138 Chloride, S 101 Bicarbonate, S 25 Anion Gap 12 BUN, S 18 Creatinine 0.69 (L) eGFR (eGFR) >90 Calcium, Total, S 8.7 (L) Glucose, S 220 (H) Basic Metabolic Panel (09/22/2022 6:50 AM COFFEE BREWER): Potassium, P 3.7 Sodium, P 135 Chloride, P 96 (L) Bicarbonate, P 25 Anion Gap, P 14 BUN, P 18 Creatinine 0.77 eGFR (eGFR) >90 Calcium, Total, P 9.1 Glucose, P 360 (H) 70 - 140 mg/dL CBC with Differential, Blood (09/26/2022 8:22 AM COFFEE BREWER): Hemoglobin 13.8 Hematocrit 43.7 Erythrocytes 5.22 MCV 83.7 RDW 14.5 Platelet Count 375 (H) 135 - 317 x10(9)/L CBC with Differential, Blood (09/25/2022 6:40 AM COFFEE BREWER): Hemoglobin 14.2 Hematocrit 43.6 Erythrocytes 5.26 MCV 82.9 RDW 14.3 Platelet Count 395 (H) 135 - 317 x10(9)/L CBC with Differential, Blood (09/24/2022 5:51 AM COFFEE BREWER): Hemoglobin 13.7 Platelet Count 350 (H) 135 - 317 x10(9)/L CBC with Differential, Blood (09/22/2022 6:50 AM COFFEE BREWER): Hemoglobin 14.8 Hematocrit 46.2 Erythrocytes 5.49 MCV 84.2 RDW 13.9 Platelet Count 353 (H) Lipid Panel (09/23/2022 3:06 AM COFFEE BREWER): Triglycerides 85 mg/dL Cholesterol, Total 105 mg/dL Cholesterol, LDL, Calculated 54 mg/dL Cholesterol, HDL, S 34 (L) >=40 mg/dL Cholesterol, Non-HDL, Calculated 71 mg/dL Hepatic Function Panel (09/22/2022 6:50 AM COFFEE BREWER): Bilirubin, Total, S 0.7 <=1.2 mg/dL Bilirubin, [...] (Thyroid-Stimulating Hormone - Sensitive) (09/22/2022 6:50 AM COFFEE BREWER): TSH, Sensitive 2.7 0.3 - 4.2 mIU/L Sedimentation Rate (09/22/2022 6:50 AM COFFEE BREWER): Sedimentation Rate, B 8 3 - 28 mm/h D-Dimer, P 427 <=500 ng/mL FEU 09/22/2022 7:08 AM COFFEE BREWER [facility] Hemoglobin A1c (09/23/2022 3:03 AM COFFEE BREWER): Hemoglobin A1c, B 10.1 (H) 4.0 - 5.6 % NT-Pro BNP 62 <=540 pg/mL 09/22/2022 7:22 AM COFFEE BREWER [facility] (ABNORMAL) Troponin T, 2H/6H, 5th Gen (09/22/2022 9:06 AM COFFEE BREWER): Troponin T, 2 hr, 5th gen 1704 (H) <=15 ng/L 2H Delta 1637 (A) ng/L 09/22/2022 9:33 AM COFFEE BREWER [facility] 2H Delta Interp Changing (A) 09/22/2022 9:33 AM COFFEE BREWER [facility] Comment: Evaluate for acute myocardial injury Troponin T, 6 hr, 5th gen 4533 (H) <=15 ng/L 09/22/2022 1:34 PM COFFEE BREWER [facility] Comment: Consider acute myocardial injury 6H Delta 4466 (A) ng/L 09/22/2022 1:34 PM COFFEE BREWER [facility] 6H Delta Interp Changing (A) 09/22/2022 1:34 PM COFFEE BREWER [facility] Comment: Evaluate for acute myocardial injury (ABNORMAL) Troponin T, Baseline, 5th gen (09/22/2022 6:50 AM COFFEE BREWER): Troponin T, Baseline, 5th gen 67 (H) <=15 ng/L DIAGNOSTICS ECG today: Normal sinus rhythm rate 65. Left axis. RBBB. LVH. No acute changes. ------ CHEST PORTABLE 1 VIEW 09/22/2022 [facility]: ------ IMPRESSION: No comparison. Negative chest. ----- CHEST 2 VIEWS PA AND LAT 09/04/22: ----- 1. Normal two-view chest for age. Echocardiogram 09/22/2022 [facility]: Hemodynamics Heart Rate: 61 BPM Blood [...] no previous echocardiograms available for comparison. LEFT VENTRICLE:Normal left ventricular chamber size. Calculated 2-D biplane volumetric left ventricular ejection fraction of 40% with the use of ultrasound enhancing agent. Regional wall motion abnormalities were present (see wall motion graphics). Grade 1/3 left ventricular diastolic dysfunction, consistent with low to normal left ventricular filling pressure. RIGHT VENTRICLE:Normal right ventricular chamber size. Normal right ventricular systolic function. Unable to detect peak tricuspid regurgitation velocity for pulmonary artery systolic pressure calculation. ATRIA:Normal left atrial size. Left atrial volume index 20 ml/m2. Normal right atrial size by visual estimate. CARDIAC VALVES:Trileaflet aortic valve. Calcified aortic valve. Aortic valve systolic mean Doppler gradient 7 mmHg. No aortic valve regurgitation. Thickened mitral valve. Trivial mitral valve regurgitation. Normal pulmonary valve. Normal tricuspid valve. Trivial tricuspid valve regurgitation. OTHER ECHO FINDINGS:Enlarged inferior vena cava size with no inspiratory [...] per Echocardiography Contrast Administration Protocol Reference Document [id number]. Patient met an inclusion criterion and did not have contraindications in screening sections. CORONARY ANGIOGRAPHY, PERCUTANEOUS CORONARY ANGIOPLASTY, STENT PLACEMENT 09/22/2022 [facility]: PROCEDURE TYPES 1. CORONARY ANGIOGRAPHY 2. [...] Geetha Adler M.D. - 09/22/2022 7:22 AM COFFEE BREWER: Formatting Procedure: Coronary angiography. Successful PCI of prox LCx with PTCA and deployment of a 3.5 x 16 mm Synergy TAMMIE Unsuccessful PCI of mid RCA due to inability to deliver equipment past heavily calcified stenosis Implant Name Type Inv. Item Serial No. Sanitarian Inspector Lot No. LRB No. Used Action STNT SYNERGY XD DE 3.50X16 - [id number] Cardiac Stent STNT SYNERGY XD DE 3.50X16 ALTHIA [id number] N/A 1 Implanted Operators: Mike Garcia M.D., Ph.D. Geetha Adler M.D. Indication: Posterior STEMI Access Site(s): Right common femoral artery, 6 Citizen Of [place] sheath(s). Sutured in at the end of the case to be removed later in recovery. Complications: No Recommendations: -Aspirin 81mg daily indefinitely barring any complications -Clopidogrel 75 mg daily for 12 months as part of dual antiplatelet therapy from 07/22/2023 -Will plan for staged PCI of mid RCA this Saturday with rotational atherectomy CORONARY ATHERECTOMY, PERCUTANEOUS CORONARY ANGIOPLASTY, STENT PLACEMENT 09/25/2022 [facility]: PROCEDURE TYPES 1. CORONARY ATHERECTOMY 2. PERCUTANEOUS CORONARY ANGIOPLASTY 3. CORONARY STENT PLACEMENT FINAL DIAGNOSIS 1. Severe coronary artery atherosclerosis 2. Rotational atherectomy 3. Successful percutaneous coronary intervention with drug eluting stent PRE-PROCEDURE DIAGNOSIS 1. ST Elevation Myocardial Infarction Involving Left Circumflex Coronary Artery (HCC) 2. Atherosclerotic Heart Disease Of [place] Coronary Artery Without Angina Pectoris CORONARY DIAGNOSTIC [...] Geetha Adler M.D. - 09/25/2022 9:48 AM COFFEE BREWER: Images from the original note were not included. PATIENT: Julius Khoury : 1945 DATE OF SERVICE: 09/25/2022 Procedure: Coronary angiography. Successful PCI of prox-mid RCA with rotational atherectomy, PTCA, and deployment of a 3.0 x 38 mm Synergy TAMMIE Implant Name Type Inv. Item Serial No. Sanitarian Inspector Lot No. LRB No. Used Action STNT SYNERGY XD DE 3.00X38 - [id number] Cardiac Stent STNT SYNERGY XD DE 3.00X38 ALTHIA [id number] N/A 1 Implanted Operators: Mike Garcia M.D., Ph.D. Geetha Adler M.D. Indication: Staged RCA PCI, recent anterior STEMI Access Site(s): Right common femoral artery, 6 Citizen [place] sheath(s). Sutured in at the end of the case to be removed later in recovery. Complications: No Recommendations: -Aspirin 81mg daily indefinitely barring any complications -Clopidogrel 75 mg daily for 12 months as part of dual antiplatelet therapy from 09/25/2022 -Transfer back to cardiology floor service Assessment/Plan: Julius Khoury is a 77 year-old gentleman with a history of hypertension, [...] PCP has since initiated empagliflozin. Since his NC and subsequent PCI, he has had no further episodes of chest pain and walks almost daily for 40 minutes at the [facility]. His blood pressure and heart rate today are well controlled on his current regimen, he has not checked his blood pressure at home however and was encouraged to do so. He does have lower extremity edema on exam in the setting of varicosities, however BNP is only 105. Home weights have been relatively stable. His activity is primarily limited by arthralgias. He has follow up scheduled with new PCP and plans to address arthralgias with PCP at that visit. Arthralgias were present prior to increase in atorvastatin. Plan: 1. 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 Grade 1/3 diastolic dysfunction. Current regimen metoprolol succinate 50 mg daily, losartan 50 mg daily, Lasix 40 mg daily, empagliflozin 12.5 mg daily. *Continue current therapy. Consider further titration of medications pending home blood pressure assessment. *Repeat echo in 3 months 3. Aortic stenosis: Mild per 09/22/2022 echo with mean gradient 7 mmHg. *Repeat echo as above. 4. Hyperlipidemia: Lipids 09/23/2022 on atorvastatin 40 mg daily: TC 105, TG 85, LDL 54, HDL 34. Atorvastatin increased to 80 mg daily with NC. Lipids today: TC 118, TG 106 (nonfasting), HDL 30, LDL 67. *Recommend LDL reduction to goal of 70 or < 50% of baseline, whichever is lower. Currently at goal. *Continue atorvastatin 80 mg daily. 5. Hypertension: *Goal blood pressure < 130/80 per 2017 ACC/AHA guidelines. 6. Type 2 diabetes mellitus with peripheral neuropathy: Poorly controlled, Hgb A1c 10.1 on 09/23/2022. *Per PCP 7. COPD: Denies SOB, no PFTs available. *Per PCP 8. Arthralgias: *PCP follow up. 9. Follow up: Interventional Cardiology follow up in 3 months with echo. Today's testing results, significance, and plan were [...] records, patient care, counseling, and documentation was 90 minutes. /debby RIVERA NP NURSE PRACTITIONER Signed: 10/31/2022 12:02 03/01/2023 ADDENDUM STATUS: COMPLETED Reviewed results of 02/18/2023 echo, see below. LV function has improved, EF previously 40%. Will review results with Mr. Khoury during scheduled 03/04/2023 visit. Echocardiogram 02/18/2023: Reason For Study: Cardiomyopathy Interpretation [...] in size, and collapses normally with respiration. /debby RIVERA NP NURSE PRACTITIONER Signed: 03/01/2023 13:47 OSMANY RIVERA [facility]"
--- OUTSIDE RECORDS SUMMARY | 2023-08-14 09:39 | XMS_ITS | Encounter Summary ---
Author Name Department of [facility] Organization Department of [facility] Address [address] [place] [id number] Support Name Relationship Address Phone BREE KHOURY Next of Kin [address] [place] [address] BREE KHOURY Emergency Contact [address] [place] [address] Insurance Providers: All historical and [...] [facility] (WNR) Jul 29, 2021 [id number] KHOURY,WE SLEY PATIENT [employer] (WNR) MEDICARE ADVANTAGE [facility] (WNR) Jul 29, 2015 [id number] 97 KHOURY,WE SLEY PATIENT [employer] (WNR) MEDICARE ADVANTAGE [facility] (WNR) Jul 29, 2015 [id number] 97 KHOURY,WE SLEY PATIENT [employer] (WNR) MEDICARE ADVANTAGE [facility] (WNR) Jul 29, 2015 [id number] 97 KHOURY,WE JASY PATIENT Selected Encounter This section includes the information on record at [place] for the Encounter. Date/Time Encounter Type Encounter Description Reason Provider Source Oct 22, 2022 12:15 PM ELECTROCARDIOGRAM COMPLETE EKG ICD-10-CM Z13.6 Encounter for screening for cardiovascular disorders BING WILKES Encounter Template Text not used by [place] Assessments - Encounter Diagnoses This section includes the primary and secondary diagnoses documented for the Encounter. Date/Time Primary/Secondary Diagnosis Diagnosis Name Provider Source Oct 22, 2022 02:45 PM PRIMARY Encounter for screening for cardiovascular disorders LIANET ALANIS [facility] Plan of Treatment: Future Appointments (+ 6 months) and Future Tests (+/- 45 days) The Plan of Treatment section includes future care activities for the patient from [facility] [place] [facility] This section includes future appointments and future orders which are active, pending or scheduled. Future Appointments This section includes appointments that were scheduled to occur 6 months from the date of the Encounter, up to a maximum of 20 appointments. The data comes from all [place] treatment facilities. Appointment Date/Time Appointment Type Appointme [...] 2023 01:00 PM AMBULATORY - MEDICINE [facility] Feb 07, 2023 02:15 PM AMBULATORY - MEDICINE [facility] Feb 18, 2023 11:00 AM AMBULATORY - MEDICINE [facility] Feb 19, 2023 08:00 AM AMBULATORY - NONE [facility] ([facility] Feb 22, 2023 01:30 PM [facility]ATORY - MEDICINE [facility] ([facility]) Mar 04, 2023 02:30 PM AMBULATORY - MEDICINE [facility] Mar 12, 2023 11:30 AM [...] Range Comment Oct 22, 2022 01:51 PM [facility] BNP Specimen Type: PLASMA No comment entered. Ordering Provider: PALOMO RIVERA Report Released Date/Time: Oct 22, 2022 01:37 PM Reporting Lab: [facility] [id number] Performing Lab: [facility] [id number] BNP 105 H <99 Oct 22, 2022 01:51 PM [facility] LIPID PANEL,NON-FASTING Specimen Type: PLASMA No comment entered. Ordering Provider: PALOMO RIVERA Report Released Date/Time: Oct 22, 2022 01:37 PM Reporting Lab: [facility] [id number] Performing Lab: [facility] [address] CHOLESTEROL 118 <199 .HDL 30 L >40 LDL CALCULATION 67 <99 VLDL CALCULATION 21 <29 NON HDL CHOLESTEROL 88 <129 TRIG(NON FASTING) 106 <149 Oct 01, 2022 09:41 AM [facility] ([facility]) CBC Specimen Type: BLOOD No comment entered. Ordering Provider: DAMIAN RYAN Report Released Date/Time: Oct 01, 2022 09:30 AM Reporting Lab: [facility] [id number] Performing Lab: [facility] [address] WBC 9.32 4.0-11.0 RBC 5.08 4.6-6.2 HGB 13.3 L 13.5-17.9 HCT 42.3 41-54 MCV 83.3 80-100 MCH 26.2 L 27-33 MCHC 31.4 L 32.0-37.5 PLT 484 H 150-400 MPV 9.3 7.4-10.4 RDW 14.1 11.5-14.5 Oct 01, 2022 09:41 AM [facility] ([facility]) BASIC METABOLIC PANEL+MG Specimen Type: PLASMA No comment entered. Ordering Provider: DAMIAN RYAN Report Released Date/Time: Oct 01, 2022 09:30 AM Reporting Lab: [facility] [id number] Performing Lab: [facility] [phone] CREATININE 0.8 0.7-1.2 UREA NITROGEN 20 8-26 GLUCOSE 146 H 70-100 SODIUM 140 136-145 POTASSIUM 4.0 3.5-5.1 CHLORIDE 103 98-107 CO2 28 22-29 CALCIUM 9.3 8.4-10.2 MAGNESIUM 1.7 1.6-2.6 ANION GAP 9 5-15 CREAT EGFR(CKD-EPI) >90 >60 Vital Signs: All taken on the encounter date This section contains inpatient and outpatient Vital Signs collected on the date of the Encounter. Date/Time Temperature Pulse Blood Pressure Respiratory Rate SP02 Pain Height Weight Body Mass Index Source Oct 22, 2022 12:15 PM 117/68 mm[Hg] [facility] Oct 22, 2022 12:09 PM 97 F 67 /min 145/73 mm[Hg] 16 /min 97 % [address] [facility]
--- OUTSIDE RECORDS SUMMARY | 2023-08-14 09:39 | XMS_ITS | Encounter Summary ---
Author Name [facility] of [facility] Organization Department of [facility] Address [address] [place] [address] Support Name Relationship Address Phone BREE KHOURY Next of Kin [address] [place] [address] BREE KHOURY Emergency Contact [address] [place] [address] Insurance Providers: All historical [...] Policy Vaughn [employer] M[employer] (WNR) MEDICARE ADVANTAGE [facility] (WNR) Jul 29, 2021 [id number] 97 KHOURY,WE SLEY PATIENT [employer] (WNR) MEDICARE ADVANTAGE [facility] (WNR) Jul 29, 2015 [id number] 97 KHOURY,WE SLEY PATIENT [employer] (WNR) MEDICARE ADVANTAGE [facility] (WNR) Jul 29, 2015 [id number] 97 KHOURY,WE SLEY PATIENT [employer] (WNR) MEDICARE ADVANTAGE [facility] (WNR) Jul 29, 2015 [id number] 97 KHOURY,WE SLEY PATIENT Selected Encounter This section includes the information on record at [place] for the Encounter. Date/Time Encounter Type Encounter Description Reason Provider Source Oct 23, 2022 01:49 PM Outpatient Encounter ENDOCRINOLOGY ICD-10-CM E10.40 Type 1 diabetes mellitus with diabetic neuropathy, SHALINI Mcgee Encounter Template Text not used by [place] Assessments - Encounter Diagnoses This section includes the primary and secondary diagnoses documented for the Encounter. Date/Time Primary/Secondary Diagnosis Diagnosis Name Provider Source Oct 23, 2022 01:51 PM PRIMARY Type 1 diabetes mellitus with diabetic neuropathy, SHALINI Mcgee [facility] Plan of Treatment: Future Appointments [...] 07, 2023 01:00 PM AMBULATORY - MEDICINE [facility] Feb 07, 2023 02:15 PM AMBULATORY - MEDICINE [facility] Feb 18, 2023 11:00 AM AMBULATORY - MEDICINE [facility] Feb 19, 2023 08:00 AM AMBULATORY - NONE [facility] Feb 22, 2023 01:30 PM [facility]BULATORY - MEDICINE [facility] ([facility]) Mar 04, 2023 02:30 PM AMBULATORY - MEDICINE [facility] Mar 12, 2023 11:30 AM AMBULATORY [...] Range Comment Oct 22, 2022 01:51 PM [facility] BNP Specimen Type: PLASMA No comment entered. Ordering Provider: PALOMO RIVERA Report Released Date/Time: Oct 22, 2022 01:37 PM Reporting Lab: [facility] [address] Performing Lab: [facility] [phone] BNP 105 H <99 Oct 22, 2022 01:51 PM [facility] LIPID PANEL,NON-FASTING Specimen Type: PLASMA No comment entered. Ordering Provider: PALOMO RIVERA Report Released Date/Time: Oct 22, 2022 01:37 PM Reporting Lab: [facility] [phone] Performing Lab: [facility] [address] CHOLESTEROL 118 <199 .HDL 30 L >40 LDL CALCULATION 67 <99 VLDL CALCULATION 21 <29 NON HDL CHOLESTEROL 88 <129 TRIG(NON FASTING) 106 <149 Oct 01, 2022 09:41 AM [facility] ([facility]) CBC Specimen Type: BLOOD No comment entered. Ordering Provider: DAMIAN RYAN Report Released Date/Time: Oct 01, 2022 09:30 AM Reporting Lab: [facility] [address] Performing Lab: [facility] [address] WBC 9.32 4.0-11.0 RBC 5.08 4.6-6.2 HGB 13.3 L 13.5-17.9 HCT 42.3 41-54 MCV 83.3 80-100 MCH 26.2 L 27-33 MCHC 31.4 L 32.0-37.5 PLT 484 H 150-400 MPV 9.3 7.4-10.4 RDW 14.1 11.5-14.5 Oct 01, 2022 09:41 AM [facility] ([facility]) BASIC METABOLIC PANEL+MG Specimen Type: PLASMA No comment entered. Ordering Provider: DAMIAN RYAN Report Released Date/Time: Oct 01, 2022 09:30 AM Reporting Lab: [facility] [address] Performing Lab: [facility] [address] CREATININE 0.8 0.7-1.2 UREA NITROGEN 20 8-26 GLUCOSE 146 H 70-100 SODIUM 140 136-145 POTASSIUM 4.0 3.5-5.1 CHLORIDE 103 98-107 CO2 28 22-29 CALCIUM 9.3 8.4-10.2 MAGNESIUM 1.7 1.6-2.6 ANION GAP 9 5-15 CREAT EGFR(CKD-EPI) >90 >60 Encounter Notes: All associated encounter notes This section contains the clinical notes associated to the Encounter. 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 At this time empagliflozin was discontinued and approved for personal CGM. then had STEMI (has hx of CHF) and was seen in [place] ED where empagliflozin was reinitiated. Requesting metabolic provider review for safety of continued empagliflozin use in the setting of T1DM and CHF. Collection DT Spec HGBA1C 09/04/2022 11:46 BLOOD 9.5 H 07/12/2022 11:02 BLOOD 9.1 H 07/12/2022 11:01 BLOOD 9.2 H Recommendations: I reviewed the [place] records and they have him documented as a patient with type 2 diabetes. At this time, we do not have approval to use empagliflozin in patients with type 1 diabetes. Although his C-peptide is not significantly stimulated, the combination of it being fully suppressed with the presence of ksenia antibodies is more consistent with type 1 diabetes. I would recommend stopping the empagliflozin and continuing to titrate his insulin. /hi/ BRIT SCRUGGS NURSE PRACTITIONER, ENDOCRINE Signed: 10/23/2022 13:51 SHALINI FREEDMAN [facility]
--- OUTSIDE RECORDS SUMMARY | 2023-08-14 09:39 | XMS_ITS | Encounter Summary ---
Author Name Department [facility] Organization Department of [facility] Address [address] [place] [address] Support Name Relationship Address Phone BREE KHOURY Next of Kin [address] [place] [address] BREE KHOURY Emergency Contact [address] [place] [address] Insurance Providers: All historical and [...] Name Patient's Relationship to Policy Vaughn [employer] [facility] (WNR) MEDICARE ADVANTAGE [facility] (R) Jul 29, 2021 [id number] KHOURY,WE SLEY PATIENT [employer] MCR (WNR) MEDICARE ADVANTAGE [facility] (WNR) Jul 29, 2015 [id number] KHOURY,WE SLEY PATIENT [employer] [facility]CR (WNR) MEDICARE ADVANTAGE [facility] (WNR) Jul 29, 2015 [id number] [phone] KHOURY,WE SLEY PATIENT [employer] MCR (WNR) MEDICARE ADVANTAGE [facility] (WNR) Jul 29, 2015 [id number] KHOURY,WE SLEY PATIENT Selected Encounter This section includes the information on record at [place] for the Encounter. Date/Time Encounter Type Encounter Description Reason Provider Source Sep 19, 2022 10:30 AM [facility] BY PHARM [facility] 15 MIN CLINICAL PHARMACY ICD-10-CM E11.9 Type 2 diabetes mellitus without complications HELEN AYON Encounter Template Text not used by [facility] Assessments - Encounter Diagnoses This section includes the primary and secondary diagnoses documented for the Encounter. Date/Time Primary/Secondary Diagnosis Diagnosis Name Provider Source Sep 19, 2022 11:16 AM PRIMARY Type 2 diabetes mellitus without complications HELEN AYON ([facility]) Plan of Treatment: Future Appointments (+ 6 months) and Future Tests (+/- 45 days) The Plan of Treatment section includes future care activities for the patient from all [place] treatmentfacilities. This section includes future appointments and future orders which are active, pending or scheduled. Future Appointments This section includes appointments that were scheduled to occur 6 months from the date of the Encounter, up to a maximum of 20 appointments. The data comes from all [place] treatment facilities. Appointment Date/Time Appointment Type Appointme nt Facility Name Oct 01, 2022 08:45 AM AMBULATORY - MEDICINE [facility] ([facility]) Oct 15, 2022 02:00 PM AMBULATORY - NONE [facility] Oct 19, 2022 10:30 AM AMBULATORY - NONE [facility] ([facility]) Oct 22, 2022 12:15 PM [facility] Oct 22, 2022 12:30 PM AMBULATORY - MEDICINE [facility] Nov 16, 2022 10:30 AM AMBULATORY - MEDICINE [facility] ([facility]) December 04, 2022 10:00 AM AMBULATORY - NONE [facility] ([facility]) December 11, 2022 11:30 AM AMBULATORY - MEDICINE [facility] ([facility]) Jan 01, 2023 02:00 PM AMBULATORY [...] 2023 01:00 PM [facility] Feb 07, 2023 02:15 PM [facility] Feb 18, 2023 11:00 AM AMBULATORY - MEDICINE [facility] Feb 19, 2023 08:00 AM AMBULATORY - NONE [facility] ([facility]) Feb 22, 2023 01:30 PM AMBULATORY - MEDICINE [facility] ([facility]) Mar 04, 2023 02:30 PM AMBULATORY - MEDICINE [facility] Mar 12, 2023 11:30 AM AMBULATORY - NONE [facility] ([facility]) Lab Results: +/- 30 days of the encounter This section includes the Chemistry and Hematology Lab Results on record with [place] for the patient. Radiology Reports and Pathology Reports are provided separately, in subsequent sections. Lab Results This section contains the Chemistry/Hematology Results that were resulted 30 days before or 30 daysafter the date of the Encounter. Date/Time Source Result Type Result - Unit Interpretation Reference Range Comment Oct 01, 2022 09:41 AM [facility] ([facility]) CBC Specimen Type: BLOOD No comment entered. Ordering Provider: DAMIAN CROW Report Released Date/Time: Oct 01, 2022 09:30 AM Reporting Lab: [facility] [id number] Performing Lab: [facility] [id number] WBC 9.32 4.0-11.0 RBC 5.08 4.6-6.2 HGB 13.3 L 13.5-17.9 HCT 42.3 41-54 MCV 83.3 80-100 MCH 26.2 L 27-33 MCHC 31.4 L 32.0-37.5 PLT 484 H 150-400 MPV 9.3 7.4-10.4 RDW 14.1 11.5-14.5 Oct 01, 2022 09:41 AM [facility] ([facility]) BASIC METABOLIC PANEL+MG Specimen Type: PLASMA No comment entered. Ordering Provider: DAMIAN CROW Report Released Date/Time: Oct 01, 2022 09:30 AM Reporting Lab: [facility] [id number] Performing Lab: [facility] [id number] CREATININE 0.8 0.7-1.2 UREA NITROGEN 20 8-26 GLUCOSE 146 H 70-100 SODIUM 140 136-145 POTASSIUM 4.0 3.5-5.1 CHLORIDE 103 98-107 CO2 28 22-29 CALCIUM 9.3 8.4-10.2 MAGNESIUM 1.7 1.6-2.6 ANION GAP 9 5-15 CREAT EGFR(CKD-EPI) >90 >60 Sep 04, 2022 11:47 AM [facility] ([facility]) URINALYSIS Specimen Type: URINE No comment entered. Ordering Provider: DAMIAN CROW Report Released Date/Time: Sep 04, 2022 11:40 AM Reporting Lab: [facility] [id number] Performing Lab: [place] [id number] URINE COLOR COLORLESS SPECIFIC GRAVITY 1.022 1.003-1.03 [...] NEGATIVE NEGATIVE Sep 04, 2022 11:46 AM [facility] C-PEPTIDE Specimen Type: SERUM Comment: Test Performed by [facility] [place], [address] [place] [address] [place] M.D., Ph.D., Director of Laboratories , CLIA [id number] Ordering Provider: JUANCARLOS BOYKIN Report Released Date/Time: Jul 19, 2022 09:30 AM Reporting Lab: [facility] [id number] Performing Lab: [address] C-PEPTIDE <0.10 L 0.80-3.85 Sep 04, 2022 11:46 AM [facility] KSENIA-65 ANTIBODY Specimen Type: SERUM Comment: REFERENCE RANGE: <5 IU/mL This test was performed using the GAD65 ZOHRA method, which is standardized against the International reference preparation 97/550. Test Performed by [facility] [place], [address] [place] [address] [place] M.D., Ph.D., Director of Laboratories , CLIA [id number] Ordering Provider: JUANCARLOS BOYKIN Report Released Date/Time: Jul 19, 2022 09:30 AM Reporting Lab: [facility] [id number] Performing Lab: [address] KSENIA-65 ANTIBODY >250 H SEE BELOW Sep 04, 2022 11:46 AM [facility] GLUCOSE Specimen Type: PLASMA No comment entered. Ordering Provider: JUANCARLOS BOYKIN Report Released Date/Time: Jul 19, 2022 09:30 AM Reporting Lab: [facility] [id number] Performing Lab: [facility] [id number] GLUCOSE 130 H 70-100 Sep 04, 2022 11:46 AM [facility] ([facility]) HEMOGLOBIN A1C Specimen Type: BLOOD Comment: Values obtained from A1C measurements can vary. For typical A1C assays, a reported value of 7.0 could actually be between 6.7 and 7.3 if measured by a reference method. A reported value of 9.0 could actually be between 8.7 and 9.3. Ref: http://www.ngs p.org/CAPdata. asp Ordering Provider: DAMIAN CROW Report Released Date/Time: Sep 04, 2022 11:36 AM Reporting Lab: [facility] [id number] Performing Lab: [facility] [id number] HEMOGLOBIN A1C 9.5 H 4.0-6.0 Sep 04, 2022 11:46 AM [facility] ([facility]) BNP Specimen Type: PLASMA No comment entered. Ordering Provider: DAMIAN CROW Report Released Date/Time: Sep 04, 2022 11:36 AM Reporting Lab: [facility] [id number] Performing Lab: [facility] [id number] BNP <10 <99 Sep 04, 2022 11:46 AM [facility] ([facility]) CBC Specimen Type: BLOOD No comment entered. Ordering Provider: DAMIAN CROW Report Released Date/Time: Sep 04, 2022 11:37 AM Reporting Lab: [facility] [id number] Performing Lab: [facility] [id number] WBC 7.80 4.0-11.0 RBC 5.42 4.6-6.2 HGB 14.8 13.5-17.9 HCT 44.9 41-54 MCV 82.8 80-100 MCH 27.3 27-33 MCHC 33.0 32.0-37.5 PLT 355 150-400 MPV 9.5 7.4-10.4 RDW 14.3 11.5-14.5 Sep 04, 2022 11:46 AM [facility] ([facility]) COMPREHENSIVE METABOLIC PANEL+MG Specimen Type: PLASMA No comment entered. Ordering Provider: DAMIAN CROW Report Released Date/Time: Sep 04, 2022 11:36 AM Reporting Lab: [facility] [id number] Performing Lab: [facility] [id number] CREATININE 0.8 0.7-1.2 UREA NITROGEN 18 8-26 GLUCOSE 130 H 70-100 SODIUM 139 136-145 POTASSIUM 3.8 3.5-5.1 CHLORIDE 102 98-107 CO2 25 22-29 CALCIUM 9.6 8.4-10.2 PROTEIN,TOTAL 7.7 6.0-8.3 ALBUMIN 4.0 3.5-5.2 BILIRUBIN, TOTAL 0.5 0.2-1.2 MAGNESIUM 1.7 1.6-2.6 ANION GAP 12 5-15 ALKALINE PHOSPHATASE 108 40-150 ALT/SGPT 17 <55 AST/SGOT 18 <34 CREAT EGFR(CKD-EPI) >90 >60 Social History: Smoking Status (Most current) and Tobacco Use (All prior to encounter date) This section includes the most current, and the historical, smoking and tobacco- related health factors from the [place] facility where the Encounter took place. Current Smoking Status This section includes the most current smoking, or tobacco-related health factor, from the [place] facility where the Encounter took place. Date/Time Current Smoking Status Comment [place] it[facility] Jul 12, 2022 09:45 AM [facility]-TOBACCO FORMER USER [facility] ([facility]) Tobacco Use History This section includes a history of the smoking, or tobacco-related health factors, that were collected on or before the date of the Encounter. The data comes from the [place] facility where the Encounter took place. Date/Time Smoking Status/Tobacco Use Comment F acility Jul 12, 2022 09:45 AM VA-TOBACCO QUIT 5 TO < 15 YRS [facility] ([facility]) Jul 13, 2021 09:15 AM VA-TOBACCO FORMER USER [facility] ([facility]) Jul 13, 2021 09:15 AM VA-TOBACCO QUIT 5 TO < 15 YRS [facility] ([facility]) Jun 28, 2020 09:15 AM VA-TOBACCO FORMER USER [facility] ([facility]) Jun 28, 2020 09:15 AM VA-TOBACCO QUIT 5 TO < 15 YRS [facility] ([facility]) Mar 23, 2019 03:20 PM VA-TOBACCO FORMER USER [facility] ([facility]) Mar 23, 2019 03:20 PM VA-TOBACCO QUIT 5 TO < 15 YRS [facility] ([facility]) Apr 01, 2018 02:59 PM VA-TOBACCO FORMER USER [facility] ([facility]) Apr 01, 2018 02:59 PM VA-TOBACCO QUIT 5 TO < 15 YRS [facility] ([facility]) Jun 28, 2017 01:51 PM FORMER TOBACCO USER 7Y OR GREATE R [facility] ([facility]) Jun 29, 2016 08:43 AM FORMER TOBACCO USE >1Y <7Y [facility] ([facility]) Radiology Reports: +/- 30 days of [...] the Encounter. The data comes from all [place] treatment facilities. Date/Time Radiology Report Provider Source Sep 04, 2022 11:46 AM CHEST 2 VIEWS PA A ND LAT: LUIS KHOURY [id number] M Exm Date: SEP 04, 2022@11:46 Req Phys: DAMIAN CROW Pat Loc: [facility] (Req'g Loc Img Loc: [facility] RAD[facility] Service: Unknown (Case [id number] COMPLETE) CHEST 2 VIEWS PA AND LAT (RAD Detailed) CPT:15032 Reason for Study: ankle sweling, sob Clinical History: IS NOT under investigation for COVID-19 or is COVID-19 negative ankle swelling, sob Responsible provider name and phone number to notify for critical findings if other than user placing the order and pager listed below: User placing orders pager: damian crow LAST CREATININE 0.9 (07/12/22) Report Status: Verified Date Reported: SEP 04, 2022 Date Verified: SEP 04, 2022 Marketing Director Assisted Living E-Sig:/ES/GENE LORA MD Report: DATE/TIME REGISTERED: 09/04/2022 [...] Primary Interpreting Staff: GENE LORA MD, RADIOLOGIST (Marketing Director Assisted Living) /GENE RIVAS [facility] Encounter Notes: All associated encounter notes This section contains the clinical notes associated to the Encounter. Date/Time Encounter Note(s) Provider Source Sep 19, 2022 09:25 AM PHARMACY NOTE: LOCAL TITLE: PHARMACOTHERAPY-CLINICAL PHARMACY NOTE STANDARD TITLE: PHARMACY NOTE DATE OF NOTE: SEP 19, 2022@09:25 ENTRY DATE: SEP 19, 2022@09:25:46 AUTHOR: HELEN AYON COSIGNER: URGENCY: STATUS: COMPLETED Visit Type: In-Clinic LUIS KHOURY is a 77 YO followed by [facility] for diabetes medication management. [place] with T1DM (positive KSENIA-65 antibody and low c-peptide on 09/04/22) SUBJECTIVE: shares BGs have increased recently, no changes in lifestyle. [place] - limited by arthritis pain. Confirmed stopped empagliflozin. Shares would like to get cyanocobalamin, aspirin, and hydrochlorothiazide through [place] pharmacy. ROS: (-) hypoglycemia symptoms (-) hyperglycemia symptoms SMBG Readings: Date AM Noon PM Notes 09/19 224 09/18 167 213 232 09/17 229 257 375 09/16 233 181 214 09/15 231 217 141 17 186 224 403 09/13 148 222 219 15 101 153 194 empagliflozin discontinued 09/11 168 173 131 09/10 135 118 123 AVG 182.2 195.3 225.8 MIN 101 118 123 MAX 233 257 403 Adherence to medications: denies missed doses OBJECTIVE: [...] CALCIUM 40MG TAB TAKE ONE TABLET BY ACTIVE MOUTH AT BEDTIME FOR CHOLESTEROL 3) INSULIN,ASPART 100UN/ML RENATE FLEXPEN 3ML INJECT 10 ACTIVE UNITS UNDER THE SKIN THREE TIMES A DAY WITH MEALS FOR DIABETES - SKIP DOSE IF NOT EATING 4) INSULIN,GLARGINE 100 UNT/ML 3ML SOLOSTAR INJECT 40 ACTIVE UNITS UNDER THE SKIN EVERY MORNING FOR DIABETES 5) LOSARTAN 50MG TAB TAKE ONE TABLET BY MOUTH EVERY DAY ACTIVE Pending Outpatient Medications Status ======= 1) METFORMIN HCL 1000MG TAB TAKE ONE TABLET BY MOUTH PENDING EVERY MORNING FOR DIABETES Active Non-VA Medications Status ======= 1) Non-VA ASPIRIN 81MG EC TAB 81MG MOUTH EVERY MORNING ACTIVE 2) Non-VA CYANOCOBALAMIN 1000MCG TAB 1000MCG MOUTH EVERY ACTIVE DAY 3) Non-VA CYCLOBENZAPRINE HCL 10MG TAB 10MG MOUTH THREE ACTIVE TIMES A DAY NEEDED 4) Non-VA HYDROCHLOROTHIAZIDE 25MG TAB 25MG MOUTH EVERY ACTIVE MORNING 10 Total Medications Height: 67.5 in [171.5 cm] (09/04/2022 11:01) Weight: 205.9 lb [93.39 kg] (09/04/2022 11:01) BMI: 31.8 LABS: Basic Metabolic Panel SODIUM 139 (09/04/22) POTASSIUM 3.8 (09/04/22) CREATININE 0.8 (09/04/22) UREA NITROGEN 18 (09/04/22) GLUCOSE 130 H (09/04/22) CO2 25 (09/04/22) CHLORIDE 102 (09/04/22) EGFR (03/01) 07/13/21 @ 1003 82 CREATININE EGFR (CKD-EPI) 09/04/22 @ 1146 >90 MAGNESIUM 1.7 (09/04/22) Collection DT Specimen Test Name Result Units Ref Range 09/04/2022 11:46 PLASMA CREATININE 0.8 mg/dL 0.7 - 1.2 07/12/2022 11:01 PLASMA CREATININE 0.9 mg/dL 0.7 - 1.2 01/02/2022 13:53 PLASMA CREATININE 1.0 mg/dL 0.7 - 1.2 09/04/2022 11:46 PLASMA CREAT EGFR(CKD-EP >90 Ref: >=60 07/12/2022 11:01 PLASMA CREAT EGFR(CKD-EP 89 Ref: >=60 01/02/2022 13:53 PLASMA CREAT EGFR(CKD-EP 79 Ref: >=60 07/13/2021 10:03 PLASMA ESTIMATED GFR(eGF >60 Ref: >=60 03/01/2021 12:38 PLASMA ESTIMATED GFR(eGF >60 Ref: >=60 10/03/2020 12:48 PLASMA ESTIMATED GFR(eGF >60 Ref: >=60 Collection DT Spec HGBA1C 09/04/2022 11:46 BLOOD [...] (FBG 80-160, PPG <210) d/t comorbidities per [facility] guidelines less than 7% if can achieve without hypoglycemia Elevated BGs after discontinuation of empagliflozin. Encouraged to continue walking as able. Will increase prandial coverage and provide sliding scale for BGs above goal. Also discussed trialing dose reduction of metformin and discontinuation. -INCREASE insulin aspart to 12 units with meals o May take 1 additional unit for every 50mg over 150mg/dL (max of 4 additional units) -DECREASE metformin to 1000mg daily o If no increase in BGs, then discontinue -Continue insulin glargine 40 units daily With regards to request for aspirin, cyanocobalamin, and hydrdochlorothiazide through [place] pharmacy, reasonable to transition these prescriptions. Meds discontinued in non-VA med list. #Disease-Specific Med Rec: Completed today #Labs: -A1c next ~November 2022 - Educated vet on indication/risks/benefits of new/changed medication. - Education provided on therapeutic nonpharmacologic management to achieve goals. - Vet advised of recent labs. - verbalized understanding to all plans discussed today. Questions were answered to vet's satisfaction. Time spent: 45 minutes RTC: October 24 @ 1030 in-clinic /es/ HELEN AYON PHARMD, [facility] CLINICAL THRESHING DEPARTMENT SUPERVISOR Signed: 09/19/2022 11:23 HELEN AYON ([facility])
--- OUTSIDE RECORDS SUMMARY | 2023-08-14 09:39 | XMS_ITS | Encounter Summary ---
Author Name Department of [facility] Organization Department of [facility] Address [address] [place] [address] Support Name Relationship Address Phone BREE KHOURY Next of Kin [address] [place] [address] BREE KHOURY Emergency Contact [address] [place] [address] Insurance Providers: All historical and [...] Name Patient's Relationship to Policy Vaughn HUMANA [facility] (WNR) MEDICARE ADVANTAGE [facility] ([facility]) Jul 29, 2021 [id number] 1 [id number] KHOURY,WE SLEY PATIENT HUMANA MCR (WNR) MEDICARE ADVANTAGE [facility] (R) Jul 29, 2015 [id number] 97 KHOURY,WE SLEY PATIENT HUMANA MCR (WNR) MEDICARE ADVANTAGE [facility] (WNR) Jul 29, 2015 [id number] 1 [id number] 97 KHOURY,WE SLEY PATIENT HUMANA MCR (WNR) MEDICARE ADVANTAGE [facility] (R) Jul 29, 2015 [id number] 97 KHOURY,WE SLEY PATIENT Selected Encounter This section includes the information on record at [place] for the Encounter. Date/Time Encounter Type Encounter Description Reason Provider Source Oct 19, 2022 10:30 AM HC PRO PHONE CALL 21-30 MIN TELEPHONE PRIMARY CARE ICD-10-CM E10.40 Type 1 diabetes mellitus with diabetic neuropathy, unsHELEN Bonilla Encounter Template Text not used by [facility] Assessments - Encounter Diagnoses This section includes the primary and secondary diagnoses documented for the Encounter. Date/Time Primary/Secondary Diagnosis Diagnosis Name Provider Source Oct 19, 2022 10:30 AM PRIMARY Type 1 diabetes mellitus with diabetic neuropathy, unsp HELEN AYON ([facility]) Plan of Treatment: Future Appointments (+ 6 months) and Future Tests (+/- 45 days) The Plan of Treatment section includes future care activities for the patient from all [place] treatmentfacilities. This section includes future appointments and future orders which are active, pending or scheduled. Future Appointments This section includes appointments that were scheduled to occur 6 months from the date of the Encounter, up to a maximum of 20 appointments. The data comes from all [place] treatment facilities. Appointment Date/Time Appointment Type Appointme nt Facility Name Oct 22, 2022 12:15 PM AMBULATORY - MEDICINE [facility] Oct 22, 2022 12:30 PM AMBULATORY - MEDICINE [facility] Nov 16, 2022 10:30 AM AMBULATORY [...] 07, 2023 01:00 PM AMBULATORY - MEDICINE [facility] Feb 07, 2023 02:15 PM AMBULATORY - MEDICINE [facility] Feb 18, 2023 11:00 AM AMBULATORY - MEDICINE [facility] Feb 19, 2023 08:00 AM AMBULATORY - NONE [place] ([facility]) Feb 22, 2023 01:30 PM AMBULATORY - MEDICINE [facility] ([facility]) Mar 04, 2023 02:30 PM AMBULATORY - MEDICINE [facility] Mar 12, 2023 11:30 AM AMBULATORY [...] and Hematology Lab Results on record with [place] for the patient. Radiology Reports and Pathology Reports are provided separately, in subsequent sections. Lab Results This section contains the Chemistry/Hematology Results that were resulted 30 days before or 30 daysafter the date of the Encounter. Date/Time Source Result Type Result - Unit Interpretation Reference Range Comment Oct 22, 2022 01:51 PM [facility] BNP Specimen Type: PLASMA No comment entered. Ordering Provider: PALOMO RIVERA Report Released Date/Time: Oct 22, 2022 01:37 PM Reporting Lab: [facility] [id number] Performing Lab: [facility] [address] BNP 105 H <99 Oct 22, 2022 01:51 PM [facility] LIPID PANEL,NON-FASTING Specimen Type: PLASMA No comment entered. Ordering Provider: PALOMO RIVERA Report Released Date/Time: Oct 22, 2022 01:37 PM Reporting Lab: [facility] [address] Performing Lab: [facility] [address] CHOLESTEROL 118 <199 .HDL 30 L >40 LDL CALCULATION 67 <99 VLDL CALCULATION 21 <29 NON HDL CHOLESTEROL 88 <129 TRIG(NON FASTING) 106 <149 Oct 01, 2022 09:41 AM [place] ([facility]) CBC Specimen Type: BLOOD No comment entered. Ordering Provider: DAMIAN RYAN Report Released Date/Time: Oct 01, 2022 09:30 AM Reporting Lab: [facility] [id number] Performing Lab: [facility] [address] WBC 9.32 4.0-11.0 RBC 5.08 4.6-6.2 HGB 13.3 L 13.5-17.9 HCT 42.3 41-54 MCV 83.3 80-100 MCH 26.2 L 27-33 MCHC 31.4 L 32.0-37.5 PLT 484 H 150-400 MPV 9.3 7.4-10.4 RDW 14.1 11.5-14.5 Oct 01, 2022 09:41 AM [facility] ([facility]) BASIC METABOLIC PANEL+MG Specimen Type: PLASMA No comment entered. Ordering Provider: DAMIAN RYAN Report Released Date/Time: Oct 01, 2022 09:30 AM Reporting Lab: [facility] [address] Performing Lab: [facility] [address] CREATININE 0.8 0.7-1.2 UREA NITROGEN 20 8-26 GLUCOSE 146 H 70-100 SODIUM 140 136-145 POTASSIUM 4.0 3.5-5.1 CHLORIDE 103 98-107 CO2 28 22-29 CALCIUM 9.3 8.4-10.2 MAGNESIUM 1.7 1.6-2.6 ANION GAP 9 5-15 CREAT EGFR(CKD-EPI) >90 >60 Social History: Smoking Status (Most current) and Tobacco Use (All prior to encounter date) This section includes the most current, and the historical, smoking and tobacco- related health factors from the [place] facility where the Encounter took place. Current Smoking Status This section includes the most current smoking, or tobacco-related health factor, from the [place] facility where the Encounter took place. Date/Time Current Smoking Status Comment Albaro ity Jul 12, 2022 09:45 AM VA-TOBACCO FORMER USER [place] ([facility]) Tobacco Use History This section includes a history of the smoking, or tobacco-related health factors, that were collected on or before the date of the Encounter. The data comes from the [place] facility where the Encounter took place. Date/Time Smoking Status/Tobacco Use Comment F acility Jul 12, 2022 09:45 AM VA-TOBACCO QUIT 5 TO < 15 YRS [facility] ([facility]) Jul 13, 2021 09:15 AM VA-TOBACCO FORMER USER [place] ([facility]) Jul 13, 2021 09:15 AM VA-TOBACCO QUIT 5 TO < 15 YRS [facility] ([facility]) Jun 28, 2020 09:15 AM VA-TOBACCO FORMER USER [facility] ([facility]) Jun 28, 2020 09:15 AM VA-TOBACCO QUIT 5 TO < 15 YRS [facility] ([facility]) Mar 23, 2019 03:20 PM VA-TOBACCO FORMER USER [place] ([facility]) Mar 23, 2019 03:20 PM VA-TOBACCO QUIT 5 TO < 15 YRS [facility] ([facility]) Apr 01, 2018 02:59 PM VA-TOBACCO FORMER USER [facility] ([facility]) Apr 01, 2018 02:59 PM VA-TOBACCO QUIT 5 TO < 15 YRS [place] ([facility]) Jun 28, 2017 01:51 PM FORMER TOBACCO USER 7Y OR GREATE R [place] ([facility]) Jun 29, 2016 08:43 AM FORMER TOBACCO USE >1Y <7Y [place] ([facility]) Encounter Notes: All associated encounter notes This section contains the clinical notes associated to the Encounter. Date/Time Encounter Note(s) Provider Source Oct 19, 2022 10:43 AM PHARMACY NOTE: LOCAL TITLE: PHARMACOTHERAPY-CLINICAL PHARMACY NOTE STANDARD TITLE: PHARMACY NOTE DATE OF NOTE: OCT 19, 2022@10:43 ENTRY DATE: OCT 19, 2022@10:43:49 AUTHOR: HELEN AYON COSIGNER: URGENCY: STATUS: COMPLETED Visit Type: Phone LUIS KHOURY is a 77 YO followed by [facility] for diabetes medication management. with T1DM (positive KSENIA-65 antibody and low c-peptide on 09/04/22). *Since our last visit has also been found to have STEMI, empagliflozin was reinitiated by [facility] and subsequently by PCP. SUBJECTIVE: shares BGs have been variable, seems to spike if he has a snack. Confirmed he is taking empagliflozin again. ROS: (-) hypoglycemia symptoms (-) hyperglycemia symptoms SMBG Readings: lowest BG 85mg/dL, felt a little low with this 140 104 139 112 129 124 116 172 191 203 Adherence to medications: denies missed doses OBJECTIVE: [...] EVERY ACTIVE MORNING FOR EXCESS FLUID 9) INSULIN,ASPART(EQV-NOVLG)100UN/ML FLXPEN INJECT 10 ACTIVE UNITS UNDER THE SKIN THREE TIMES A DAY WITH MEALS FOR DIABETES - SKIP DOSE IF NOT EATING Currently taking 16 units with meals 10) INSULIN,GLARGINE 100 UNT/ML 3ML SOLOSTAR INJECT [...] 67.5 in [171.5 cm] (09/04/2022 11:01) Weight: 196 lb [88.90 kg] (10/01/2022 08:52) BMI: 30.3 LABS: Basic Metabolic Panel SODIUM 140 (10/01/22) [...] mg/dL 0.7 - 1.2 10/01/2022 09:41 PLASMA CREAT EGFR(CKD-EP >90 Ref: >=60 09/04/2022 11:46 PLASMA CREAT EGFR(CKD-EP >90 Ref: >=60 07/12/2022 11:01 PLASMA CREAT EGFR(CKD-EP 89 Ref: >=60 07/13/2021 10:03 PLASMA ESTIMATED [...] than 7% if can achieve without hypoglycemia Reported BGs mostly within goal and tolerating current med regimen. Discussed concerns of increased risk of euglycemic DKA with resumption of empagliflozin. Will consult specialty clinic for recommendations and let him know what they say. Will plan for our next visit to be in-person for CGM training. -No medication changes at this time (suspect we will need to DC empa) #Disease-Specific Med Rec: Completed today #Labs: -A1c next ~November 2022 - Education provided on therapeutic nonpharmacologic management to achieve goals. - Mission verbalized understanding to all plans discussed today. Questions were answered to vet's satisfaction. Time spent: 22 minutes RTC: 4-6 weeks in person /hi/ HELEN AYON PHARMD, [facility] [place] [facility] [employer] APPRENTICE Signed: 10/23/2022 12:39 HELEN AYON ([facility])
--- OUTSIDE RECORDS SUMMARY | 2023-08-14 09:39 | XMS_ITS | Encounter Summary ---
Author Name Department of [facility] Organization Department of [facility] Address [address] [place] [address] Support Name Relationship Address Phone BREE KHOURY Next of Kin [address] [place] [address] BREE KHOURY Emergency Contact [address] [place] [address] Insurance Providers: All historical and [...] Policy Vaughn HUMANA MCR (WNR) MEDICARE ADVANTAGE [facility] (WNR) Jul 29, 2021 [id number] 1 [id number] KHOURY,WE SLEY PATIENT HUMANA MCR (WNR) MEDICARE ADVANTAGE [facility] (WNR) Jul 29, 2015 [id number] 97 KHOURY,WE SLEY PATIENT HUMANA MCR (WNR) MEDICARE ADVANTAGE [facility] (WNR) Jul 29, 2015 [id number] 97 KHOURY,WE SLEY PATIENT HUMANA MCR (WNR) MEDICARE ADVANTAGE [facility] (WNR) Jul 29, 2015 [id number] 97 KHOURY,WE SLEY PATIENT Selected Encounter This section includes the information on record at [place] for the Encounter. Date/Time Encounter Type Encounter Description Reason Pro vider Source Oct 01, 2022 12:00 PM Outpatient Encounter PRIMARY CARE/MEDICINE IHE Encounter Template Text not used by [place] Plan of Treatment: Future Appointments (+ 6 months) and Future Tests (+/- 45 days) The Plan of Treatment section includes future care activities for the patient [facility] [place] [facility]. This section includes future appointments [...] 2022 02:00 PM AM[facility]ORY - [place]ONE [place] [facility] Oct 19, 2022 10:30 AM AMBULATORY - NONE [place] ([facility]) Oct 22, 2022 12:15 PM [facility] [place] [facility] Oct 22, 2022 12:30 PM AMBULATORY - MEDICINE [facility] Nov 16, 2022 10:30 AM AMBULATORY [...] 07, 2023 01:00 PM [facility] Feb 07, 2023 02:15 PM [facility] Feb 18, 2023 11:00 AM AMBULATORY - MEDICINE [facility] Feb 19, 2023 08:00 AM AMBULATORY - NONE [place] ([facility]) Feb 22, 2023 01:30 PM AMBULATORY - MEDICINE [facility] ([facility]) Mar 04, 2023 02:30 PM AMBULATORY - MEDICINE [facility] Mar 12, 2023 11:30 AM AMBULATORY [...] Range Comment Oct 22, 2022 01:51 PM [facility] BNP Specimen Type: PLASMA No comment entered. Ordering Provider: OSMANY RIVERA Report Released Date/Time: Oct 22, 2022 01:37 PM Reporting Lab: [facility] [address] Performing Lab: [facility] [address] BNP 105 H <99 Oct 22, 2022 01:51 PM [facility] LIPID PANEL,NON-FASTING Specimen Type: PLASMA No comment entered. Ordering Provider: OSMANY RIVERA Report Released Date/Time: Oct 22, 2022 01:37 PM Reporting Lab: [facility] [address] Performing Lab: [facility] [address] CHOLESTEROL 118 <199 .HDL 30 L >40 LDL CALCULATION 67 <99 VLDL CALCULATION 21 <29 NON HDL CHOLESTEROL 88 <129 TRIG(NON FASTING) 106 <149 Oct 01, 2022 09:41 AM [place] ([facility]) BASIC METABOLIC PANEL+MG Specimen Type: PLASMA No comment entered. Ordering Provider: ADRIENNE CROW Report Released Date/Time: Oct 01, 2022 09:30 AM Reporting Lab: [facility] [address] Performing Lab: [facility] [address] CREATININE 0.8 0.7-1.2 UREA NITROGEN 20 8-26 GLUCOSE 146 H 70-100 SODIUM 140 136-145 POTASSIUM 4.0 3.5-5.1 CHLORIDE 103 98-107 CO2 28 22-29 CALCIUM 9.3 8.4-10.2 MAGNESIUM 1.7 1.6-2.6 ANION GAP 9 5-15 CREAT EGFR(CKD-EPI) >90 >60 Oct 01, 2022 09:41 AM [place] ([facility]) CBC Specimen Type: BLOOD No comment entered. Ordering Provider: ADRIENNE CROW Report Released Date/Time: Oct 01, 2022 09:30 AM Reporting Lab: [facility] [address] Performing Lab: [facility] [address] WBC 9.32 4.0-11.0 RBC 5.08 4.6-6.2 HGB 13.3 L 13.5-17.9 HCT 42.3 41-54 MCV 83.3 80-100 MCH 26.2 L 27-33 MCHC 31.4 L 32.0-37.5 PLT 484 H 150-400 MPV 9.3 7.4-10.4 RDW 14.1 11.5-14.5 Sep 04, 2022 11:47 AM [place] ([facility]) URINALYSIS Specimen Type: URINE No comment entered. Ordering Provider: ADRIENNE CROW Report Released Date/Time: Sep 04, 2022 11:40 AM Reporting Lab: [facility] [address] Performing Lab: [facility] [address] URINE COLOR COLORLESS SPECIFIC GRAVITY 1.022 1.003-1.03 [...] NEGATIVE NEGATIVE Sep 04, 2022 11:46 AM [facility] C-PEPTIDE Specimen Type: SERUM Comment: Test Performed by [facility], [address] [place] [address] [place] M.D., Ph.D., Director of Laboratories , [place] [id number] Ordering Provider: JUANCARLOS BOYKIN Report Released Date/Time: Jul 19, 2022 09:30 AM Reporting Lab: [facility] [address] Performing Lab: [address] C-PEPTIDE <0.10 L 0.80-3.85 Sep 04, 2022 11:46 AM [facility] KSENIA-65 ANTIBODY Specimen Type: SERUM Comment: REFERENCE RANGE: <5 IU/mL This test was performed using the GAD65 ZOHRA method, which is standardized against the International reference preparation 97/550. Test Performed by [employer], [address] [place] [address] [place] M.D., Ph.D., Director of Laboratories , [facility] [id number] Ordering Provider: JUANCARLOS BOYKIN Report Released Date/Time: Jul 19, 2022 09:30 AM Reporting Lab: [facility] [address] Performing Lab: [address] KSENIA-65 ANTIBODY >250 H See_Commen t Sep 04, 2022 11:46 AM [facility] GLUCOSE Specimen Type: PLASMA No comment entered. Ordering Provider: JUANCARLOS BOYKIN Report Released Date/Time: Jul 19, 2022 09:30 AM Reporting Lab: [facility] [address] Performing Lab: [facility] [address] GLUCOSE 130 H 70-100 Sep 04, 2022 11:46 AM [place] ([facility]) HEMOGLOBIN A1C Specimen Type: BLOOD Comment: [...] Sep 04, 2022 11:36 AM Reporting Lab: [facility] [address] Performing Lab: [facility] [address] HEMOGLOBIN A1C 9.5 H 4.0-6.0 Sep 04, 2022 11:46 AM [place] ([facility]) BNP Specimen Type: PLASMA No comment entered. Ordering Provider: ADRIENNE CROW Report Released Date/Time: Sep 04, 2022 11:36 AM Reporting Lab: [facility] [address] Performing Lab: [facility] [address] BNP <10 <99 Sep 04, 2022 11:46 AM [place] ([facility]) CBC Specimen Type: BLOOD No comment entered. Ordering Provider: ADRIENNE CROW Report Released Date/Time: Sep 04, 2022 11:37 AM Reporting Lab: [facility] [address] Performing Lab: [facility] [address] WBC 7.80 4.0-11.0 RBC 5.42 4.6-6.2 HGB 14.8 13.5-17.9 HCT 44.9 41-54 MCV 82.8 80-100 MCH 27.3 27-33 MCHC 33.0 32.0-37.5 PLT 355 150-400 MPV 9.5 7.4-10.4 RDW 14.3 11.5-14.5 Sep 04, 2022 11:46 AM [place] ([facility]) COMPREHENSIVE METABOLIC PANEL+MG Specimen Type: PLASMA No comment entered. Ordering Provider: ADRIENNE CROW Report Released Date/Time: Sep 04, 2022 11:36 AM Reporting Lab: [facility] [address] Performing Lab: [facility] [address] CREATININE 0.8 0.7-1.2 UREA NITROGEN 18 8-26 [...] the Encounter. The data comes from all [facility] facilities. Date/Time Radiology Report Provider Source Sep 04, 2022 11:46 AM CHEST 2 VIEWS PA A ND LAT: LUIS KHOURY [id number] [id number] M Exm Date: SEP 04, 2022@11:46 Req Phys: ADRIENNE CROW Pat Loc: [facility] PACT ALTAGRACIA LUX (Req'g Loc Img Loc: [facility] RADIOLOG[facility] Service: Unknown (Case [id number] COMPLETE) CHEST 2 VIEWS PA AND LAT (RAD Detailed) CPT:26423 Reason for Study: ankle sweling, sob Clinical History: [place] IS NOT under investigation for COVID-19 or is COVID-19 negative ankle swelling, sob Responsible provider name and phone number to notify for critical findings if other than user placing the order and pager listed below: User placing orders pager: adrienne crow LAST CREATININE 0.9 (07/12/22) Report Status: Verified Date Reported: SEP 04, 2022 Date Verified: SEP 04, 2022 Fitter Tacker E-Sig:/ES/GENE LORA MD Report: DATE/TIME REGISTERED: 09/04/2022 [...] Primary Interpreting Staff: GENE LORA MD, RADIOLOGIST (Fitter Tacker) /GENE RIVAS [facility] Encounter Notes: All associated encounter notes This section contains the clinical notes associated to the Encounter. Date/Time Encounter Note(s) Provider Source Oct 01, 2022 12:00 PM NONVA CONSULT: LOCAL TITLE: COMMUNITY CARE CONSULT RESULT CARDIAC REHAB STANDARD TITLE: NONVA CONSULT DATE OF NOTE: OCT 01, 2022@12:00 ENTRY DATE: DECEMBER 10, 2022@09:36:08 AUTHOR: KIP CARMICHAEL EXP COSIGNER: URGENCY: STATUS: COMPLETED VistA Imaging - Scanned Document SCANNED DOCUMENT SIGNATURE NOT REQUIRED Electronically Filed: 12/10/2022 by: KIP CARMICHAEL RN fullerette News Content Specialist KIP CARMICHAEL ([facility])
--- OUTSIDE RECORDS SUMMARY | 2023-08-14 09:39 | XMS_ITS | Encounter Summary ---
Author Name [facility] of [facility] Organization [facility] of [facility] Address [address] [place] [address] Support Name Relationship Address Phone BREE KHOURY Next of Kin [address] [place] [address] BREE KHOURY Emergency Contact [address] [place] [address] Insurance Providers: All historical and [...] Policy Vaughn HUMANA MCR (WNR) MEDICARE ADVANTAGE [facility] (WNR) Jul 29, 2021 [id number] 1 [id number] 97 KHOURY,WE SLEY PATIENT HUMANA MCR (WNR) MEDICARE ADVANTAGE [facility] (WNR) Jul 29, 2015 [id number] 97 KHOURY,WE SLEY PATIENT HUMANA MCR (WNR) MEDICARE ADVANTAGE [facility] (WNR) Jul 29, 2015 [id number] 97 KHOURY,WE SLEY PATIENT HUMANA MCR (WNR) MEDICARE ADVANTAGE [facility] (WNR) Jul 29, 2015 [id number] 1 [id number] 97 KHOURY,WE SLEY PATIENT Selected Encounter This section includes the information on record at [place] for the Encounter. Date/Time Encounter Type Encounter Description Reason Pro vider Source Oct 05, 2022 11:18 AM Outpatient Encounter PRIMARY CARE/MEDICINE IHE Encounter Template Text not used by [place] Plan of Treatment: Future Appointments (+ 6 months) and Future Tests (+/- 45 days) The Plan of Treatment section includes future care activities for the patient [facility] [place] [facility] This section includes future appointments [...] 02:00 PM AMBULATORY - NONE [place] [facility] Oct 19, 2022 10:30 AM [facility]ATORY - NONE [place] [facility] ([facility] Oct 22, 2022 12:15 PM [facility] Oct 22, 2022 12:30 PM [facility] Nov 16, 2022 10:30 AM AMBULATORY [...] Range Comment Oct 22, 2022 01:51 PM [facility] BNP Specimen Type: PLASMA No comment entered. Ordering Provider: PALOMO RIVERA Report Released Date/Time: Oct 22, 2022 01:37 PM Reporting Lab: [facility] [address] Performing Lab: [facility] [address] BNP 105 H <99 Oct 22, 2022 01:51 PM [facility] LIPID PANEL,NON-FASTING Specimen Type: PLASMA No comment entered. Ordering Provider: PALOMO RIVERA Report Released Date/Time: Oct 22, 2022 01:37 PM Reporting Lab: [facility] [address] Performing Lab: [facility] [address] CHOLESTEROL 118 <199 .HDL 30 L >40 LDL CALCULATION 67 <99 VLDL CALCULATION 21 <29 NON HDL CHOLESTEROL 88 <129 TRIG(NON FASTING) 106 <149 Oct 01, 2022 09:41 AM [place] ([facility]) CBC Specimen Type: BLOOD No comment entered. Ordering Provider: DAMIAN RYAN Report Released Date/Time: Oct 01, 2022 09:30 AM Reporting Lab: [facility] [address] Performing Lab: [facility] [address] WBC 9.32 4.0-11.0 RBC 5.08 4.6-6.2 HGB 13.3 L 13.5-17.9 HCT 42.3 41-54 MCV 83.3 80-100 MCH 26.2 L 27-33 MCHC 31.4 L 32.0-37.5 PLT 484 H 150-400 MPV 9.3 7.4-10.4 RDW 14.1 11.5-14.5 Oct 01, 2022 09:41 AM [place] ([facility]) BASIC METABOLIC PANEL+MG Specimen Type: PLASMA No comment entered. Ordering Provider: DAMIAN RYAN Report Released Date/Time: Oct 01, 2022 09:30 AM Reporting Lab: [facility] [address] Performing Lab: [facility] [address] CREATININE 0.8 0.7-1.2 UREA NITROGEN 20 8-26 GLUCOSE 146 H 70-100 SODIUM 140 136-145 POTASSIUM 4.0 3.5-5.1 CHLORIDE 103 98-107 CO2 28 22-29 CALCIUM 9.3 8.4-10.2 MAGNESIUM 1.7 1.6-2.6 ANION GAP 9 5-15 CREAT EGFR(CKD-EPI) >90 >60 Encounter Notes: All associated encounter notes This section contains the clinical notes associated to the Encounter. Date/Time Encounter Note(s) Provider Source Oct 05, 2022 11:18 AM REPORT OF CONTACT: LOCAL TITLE: APPOINTMENT SCHEDULING NOTE STANDARD TITLE: REPORT OF CONTACT DATE OF NOTE: OCT 05, 2022@11:18 ENTRY DATE: OCT 05, 2022@11:18:36 AUTHOR: TAM GUNN EXP COSIGNER: URGENCY: STATUS: COMPLETED APPOINTMENT SCHEDULING NOTE Has ADDENDA Attempted to schedule Recall/Patient Center Scheduling (PtCSch) Other: Please review 's file for PtCSch annual. Due to PCP residential can appointment be pushed out or should it be rescheduled with another available provider? Please advise SULEIMAN /hi/ ATM BEARDEN Signed: 10/05/2022 11:20 Receipt Acknowledged By: 10/12/2022 11:17 /hi/ Willard Haq RN [facility] 10/12/2022 ADDENDUM STATUS: COMPLETED 's chart reviewed. Last annual was 07-12-22. He is not co-managed. Due to uncontrolled diabetes (A1c=9.5 on 09-04-22) and extensive cardiac hx (including STEMI on 09-22-22), recommend keeping next annual as scheduled (01-21-23). /hi/ Willard Haq RN [facility] Signed: 10/12/2022 11:25 Receipt Acknowledged By: * AWAITING SIGNATURE * TAM GUNN * AWAITING SIGNATURE * DAMIAN RYAN KRISTIE K [place] ([facility])
--- OUTSIDE RECORDS SUMMARY | 2023-08-14 09:40 | XMS_ITS | Encounter Summary ---
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 [address] [place] [address] [facility] Referral ID Status Reason Start Date Expiration Date V isits Requested Visits Authorized [id number] Authorized 09/26/2022 09/26/2023 1 1 E SPECIALIST Reason for Visit * Reason Onset Date Comments Pre-visit Testing Orders 09/26/2022 Encounter Details Date Type Department Care Team (Latest Contact Info) Description 09/26/2022 Clinical Communication Department of Cardiovascular Medicine in [place], [place] [address] [place] [address] Walt Campbell P.A.-C., M.S. [address] [place] [phone] Pre-visit Testing Orders Social History Tobacco Use Types Packs/Day Years Used Date Smoking Tobacco: Former Cigarettes Alcohol Use Standard Drinks/Week Comments Not Currently 0 (1 standard drink = 0.6 oz pur e alcohol) Nutrition Answer Date Recorded Nutrition: EVOO Fat Source Unknown 09/22 Nutrition: Servings of Fruits/Vegetables per Day Not on file 09/22/2022 Dental Answer Date Recorded Dental: Regular Dentist Unknown 09/22/19 Sex and Gender Information Value Date Recorded Sex Assigned at Not on file Gender Identity Not on file Sexual Orientation Not on file documented as of this encounter Plan of Treatment Scheduled Referrals Name Type Priority Associated Diagnoses Order Schedule Cardiovascular Disease - Coronary artery disease (CAD) consult (clinic) Outpatient Referral Routine ST Elevation 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
--- OUTSIDE RECORDS SUMMARY | 2023-08-14 09:40 | XMS_ITS | Encounter Summary ---
Author Name Department of [facility] Organization Department of [facility] Address [address] [place] [address] Support Name Relationship Address Phone BREE KHOURY Next of Kin [address] [place] [address] BREE KHOURY Emergency Contact [address] [place] [address] Insurance Providers: All historical and [...] ADVANTAGE [employer] [facility] (WNR) Jul 29, 2021 [id number] KHOURY,WE SLEY PATIENT [employer] MCR (WNR) MEDICARE ADVANTAGE MCR (WNR) Jul 29, 2015 [id number] KHOURY,WE SLEY PATIENT [employer] MCR (WNR) MEDICARE ADVANTAGE MCR (WNR) Jul 29, 2015 [id number] [phone] KHOURY,WE SLEY PATIENT [employer] MCR (WNR) MEDICARE ADVANTAGE [employer] [facility] (WNR) Jul 29, 2015 [id number] KHOURY,WE JASY PATIENT Selected Encounter This section includes the information on record at [place] for the Encounter. Date/Time Encounter Type Encounter Description Reason Provider Source Sep 12, 2022 10:04 AM Outpatient Encounter ENDOCRINOLOGY ICD-10-CM E10.8 Type 1 diabetes mellitus with unspecified complications ZENA MARIE Encounter Template Text not used by [place] Assessments - Encounter Diagnoses This section includes the primary and secondary diagnoses documented for the Encounter. Date/Time Primary/Secondary Diagnosis Diagnosis Name Provider Source Sep 12, 2022 10:09 AM PRIMARY Type 1 diabetes mellitus with unspecified complications ZENA MARIE [facility] Plan of Treatment: Future Appointments (+ 6 months) and Future Tests (+/- 45 days) The Plan of Treatment section includes future care activities for the patient from all [place] treatmentfacilities. This section includes future appointments and future orders which are active, pending or scheduled. Future Appointments This section includes appointments that were scheduled to occur 6 months from the date of the Encounter, up to a maximum of 20 appointments. The data comes from all [place] treatment facilities. Appointment Date/Time Appointment Type Appointme nt Facility Name Sep 19, 2022 10:30 AM AMBULATORY - NONE [facility] Oct 01, 2022 08:45 AM AMBULATORY - MEDICINE [facility]) Oct 15, 2022 02:00 PM [facility] Oct 19, 2022 10:30 AM AMBULATORY - NONE [facility] Oct 22, 2022 12:15 PM [facility] Oct 22, 2022 12:30 PM AMBULATORY - MEDICINE [facility] Nov 16, 2022 10:30 AM AMBULATORY [...] 2023 01:00 PM [facility] Feb 07, 2023 02:15 PM AMBULATORY - MEDICINE [facility] Feb 18, 2023 11:00 AM AMBULATORY - MEDICINE [facility] Feb 19, 2023 08:00 AM AMBULATORY - NONE [facility] Feb 22, 2023 01:30 PM AMBULATORY - MEDICINE [facility] ([facility]) Mar 04, 2023 02:30 PM AMBULATORY - MEDICINE [facility] Lab Results: +/- 30 days of the encounter This section includes the Chemistry and Hematology Lab Results on record with [place] for the patient. Radiology Reports and Pathology Reports are provided separately, in subsequent sections. Lab Results This section contains the Chemistry/Hematology Results that were resulted 30 days before or 30 daysafter the date of the Encounter. Date/Time Source Result Type Result - Unit Interpretation Reference Range Comment Oct 01, 2022 09:41 AM [facility] ([facility]) BASIC METABOLIC PANEL+MG Specimen Type: PLASMA No comment entered. Ordering Provider: ADRIENNE CROW Report Released Date/Time: Oct 01, 2022 09:30 AM Reporting Lab: [facility] [id number] Performing Lab: [facility] [id number] CREATININE 0.8 0.7-1.2 UREA NITROGEN 20 8-26 GLUCOSE 146 H 70-100 SODIUM 140 136-145 POTASSIUM 4.0 3.5-5.1 CHLORIDE 103 98-107 CO2 28 22-29 CALCIUM 9.3 8.4-10.2 MAGNESIUM 1.7 1.6-2.6 ANION GAP 9 5-15 CREAT EGFR(CKD-EPI) >90 >60 Oct 01, 2022 09:41 AM [facility] ([facility]) CBC Specimen Type: BLOOD No comment entered. Ordering Provider: ADRIENNE CROW Report Released Date/Time: Oct 01, 2022 09:30 AM Reporting Lab: [facility] [id number] Performing Lab: [facility] [id number] WBC 9.32 4.0-11.0 RBC 5.08 4.6-6.2 HGB 13.3 L 13.5-17.9 HCT 42.3 41-54 MCV 83.3 80-100 MCH 26.2 L 27-33 MCHC 31.4 L 32.0-37.5 PLT 484 H 150-400 MPV 9.3 7.4-10.4 RDW 14.1 11.5-14.5 Sep 04, 2022 11:47 AM [facility] ([facility]) URINALYSIS Specimen Type: URINE No comment entered. Ordering Provider: ADRIENNE CROW Report Released Date/Time: Sep 04, 2022 11:40 AM Reporting Lab: [facility] [id number] Performing Lab: [facility] [phone] URINE COLOR COLORLESS SPECIFIC GRAVITY 1.022 1.003-1.03 [...] NEGATIVE NEGATIVE Sep 04, 2022 11:46 AM [facility] C-PEPTIDE Specimen Type: SERUM Comment: Test Performed by [facility], [address] [place] [address] [place] M.D., Ph.D., Director of Laboratories , CLIA [id number] Ordering Provider: JUANCARLOS BOYKIN Report Released Date/Time: Jul 19, 2022 09:30 AM Reporting Lab: [facility] [id number] Performing Lab: [address] C-PEPTIDE <0.10 L 0.80-3.85 Sep 04, 2022 11:46 AM [facility] KSENAI-65 ANTIBODY Specimen Type: SERUM Comment: REFERENCE RANGE: <5 IU/mL This test was performed using the GAD65 ZOHRA method, which is standardized against the International reference preparation 97/550. Test Performed by [facility], [address] [place] [address] [place] M.D., Ph.D., Director of Laboratories , CLIA [id number] Ordering Provider: JUANCARLOS BOYKIN Report Released Date/Time: Jul 19, 2022 09:30 AM Reporting Lab: [facility] [id number] Performing Lab: [address] KSENIA-65 ANTIBODY >250 H SEE BELOW Sep 04, 2022 11:46 AM [facility] GLUCOSE Specimen Type: PLASMA No comment entered. Ordering Provider: JUANCARLOS BOYKIN Report Released Date/Time: Jul 19, 2022 09:30 AM Reporting Lab: [facility] [phone] Performing Lab: [facility] [phone] GLUCOSE 130 H 70-100 Sep 04, 2022 11:46 AM [facility] ([facility]) BNP Specimen Type: PLASMA No comment entered. Ordering Provider: ADRIENNE CROW Report Released Date/Time: Sep 04, 2022 11:36 AM Reporting Lab: [facility] [phone] Performing Lab: [facility] [phone] BNP <10 <99 Sep 04, 2022 11:46 AM [facility] ([facility]) HEMOGLOBIN A1C Specimen Type: BLOOD Comment: [...] Sep 04, 2022 11:36 AM Reporting Lab: [facility] [phone] Performing Lab: [facility] [phone] HEMOGLOBIN A1C 9.5 H 4.0-6.0 Sep 04, 2022 11:46 AM [facility] ([facility]) CBC Specimen Type: BLOOD No comment entered. Ordering Provider: ADRIENNE CROW Report Released Date/Time: Sep 04, 2022 11:37 AM Reporting Lab: [facility] [id number] Performing Lab: [facility] [phone] WBC 7.80 4.0-11.0 RBC 5.42 4.6-6.2 HGB 14.8 13.5-17.9 HCT 44.9 41-54 MCV 82.8 80-100 MCH 27.3 27-33 MCHC 33.0 32.0-37.5 PLT 355 150-400 MPV 9.5 7.4-10.4 RDW 14.3 11.5-14.5 Sep 04, 2022 11:46 AM [facility] ([facility]) COMPREHENSIVE METABOLIC PANEL+MG Specimen Type: PLASMA No comment entered. Ordering Provider: ADRIENNE CROW Report Released Date/Time: Sep 04, 2022 11:36 AM Reporting Lab: [facility] [id number] Performing Lab: [facility] [id number] CREATININE 0.8 0.7-1.2 UREA NITROGEN 18 8-26 [...] the Encounter. The data comes from all [place] treatment facilities. Date/Time Radiology Report Provider Source Sep 04, 2022 11:46 AM CHEST 2 VIEWS PA A ND LAT: LUIS KHOURY [id number] M Exm Date: SEP 04, 2022@11:46 Req Phys: ADRIENNE CROW Pat Loc: [facility] PACT ALTAG[facility]ACIA [facility] (Req'g Loc Img Loc: [facility] RAD[facility] Service: Unknown (Case [id number] COMPLETE) CHEST 2 VIEWS PA AND LAT (RAD Detailed) CPT:23312 Reason for Study: ankle sweling, sob Clinical [...] 04, 2022 Date Verified: SEP 04, 2022 Supervisor Graphite E-Sig:/ES/GENE LORA MD Report: DATE/TIME REGISTERED: 09/04/2022 [...] Primary Interpreting Staff: GENE LORA MD, RADIOLOGIST (Supervisor Graphite) /GENE RIVAS [facility] Encounter Notes: All associated encounter notes This section contains the clinical notes associated to the Encounter. Date/Time Encounter Note(s) Provider Source Sep 18, 2022 09:13 AM LETTERS: LOCAL TITLE: FOLLOW UP RESULTS LETTER STANDARD TITLE: LETTERS DATE OF NOTE: SEP 18, 2022@09:13 ENTRY DATE: SEP 18, 2022@09:13:35 AUTHOR: ADRIENNE CROW EXP COSIGNER: URGENCY: STATUS: COMPLETED [facility] [address] [place] [address] Aug LUIS KHOURY [address] [facility] [address] Dear [place]: I am writing to inform you of the results of the tests you had done at the [facility]. The tests below were performed and [...] and potassium SODIUM 139 (09/04/22) (normal is 137-144) POTASSIUM 3.8 (09/04/22) (normal is 3.5-5.1) CHLORIDE 102 (09/04/22) (normal is 98-107) CO2 25 (09/04/22) (normal is 22-29) UREA NITROGEN 18 (09/04/22) (normal Male is 8-26) (normal Female is 8-20) CREATININE 0.8 (09/04/22) (normal Male is 0.7-1.2) (normal Female is 0.5-1.0) GLUCOSE 130 H (09/04/22) (normal is 70-105) CALCIUM 9.6 (09/04/22) (normal is 8.4-10.2) MAGNESIUM 1.7 (09/04/22) (normal is 1.6-2.6) EGFR (03/01) 07/13/21 @ 1003 82 CREATININE EGFR (CKD-EPI) 09/04/22 @ 1146 >90 (normal is >/=60) - Liver function Tests AST/SGOT 18 (09/04/22) (normal is 5-34) ALT/SGPT 17 (09/04/22) (normal is </= 55) ALK PHOSPHATASE 108 (09/04/22) (normal is 40-150) ALBUMIN 4.0 (09/04/22) (normal is 3.5-5.2) BILIRUBIN, TOTAL 0.5 (09/04/22) (normal is 0.3-1.2) - Glycosylated Hemoglobin (good diabetic control if less than 7.0) HEMOGLOBIN A1C 9.5 H (09/04/22) (normal range is 4.0-6.0) POC HGB A1C____ No data available Urinalysis URINE COLOR COLORLESS (09/04/22) APPEARANCE CLEAR (09/04/22) SPECIFIC GRAVITY 1.022 (09/04/22) (Normal is 1.001-1.035) URINE PH 5.0 (09/04/22) (Normal is 5-8) URINE BILIRUBIN NEGATIVE (09/04/22) (Normal is Negative) URINE KETONES NEGATIVE (09/04/22) (Normal is Negative) URINE GLUCOSE >1000 (09/04/22) (Normal is Negative) URINE PROTEIN NEGATIVE (09/04/22) (Normal is Negative) URINE HEME NEGATIVE (09/04/22) (Normal is Negative) LEUKOCYTE ESTERASE NEGATIVE (09/04/22) (Normal is Negative) URINE NITRITE NEGATIVE (09/04/22) (Normal is Negative) URINE BACTERIA NONE SEEN (09/04/22) (Normal is Negative) URINE WBC/HPF <1 (09/04/22) (Normal is 0-7) URINE RBC/HPF NONE SEEN (09/04/22) (Normal is 0-3) Comments:The blood work ordered by pharmacy suggests that your diabetes looks like type 1 or insulin dependent diabetes. I am not sure how much benefit you are getting from metformin. I think the pharmacist has increased your insulin. I would like to reduce the metformin dose to 1000mg once a day. to see if it makes any difference and will disucss with pharmacist. If you have any further questions or problems, please contact our nursing staff or me at the following number: [phone] ([place]) Sincerely, ADRIENNE CROW [facility] physician ADRIENNE CROW [facility] Sep 12, 2022 10:04 AM DIABETOLOGY CONSULT: LOCAL TITLE: DIABETES DEVICE CONSULT STANDARD TITLE: DIABETOLOGY CONSULT DATE OF NOTE: SEP 12, 2022@10:04 ENTRY DATE: SEP 12, 2022@10:04:49 AUTHOR: ZENA MARIE EXP COSIGNER: URGENCY: STATUS: COMPLETED Diabetes Device Consult Patient consulted to the Metabolic Service for consideration for personal Continuous Glucose Monitoring System (CGM). Per VISN 23 Pharmacy Criteria: All must be answered yes for patient to be eligible for CGM: Yes Diagnosis of Diabetes Mellitus (type 1 or type 2) and on insulin therapy. Yes Multiple Daily Injection of insulin >/= 3 per day or 2 doses mixed insulin or U500. Yes Difficulty achieving glycemic targets due to wide fluctuations in glycemic control despite continued attempts at case management. No At least one session of a diagnostic CGM (e.g. [employer]er Material Madeline PRO) Yes Treatment by [place] Endocrinology or mobile security specialist (i.e. PACT Pharmacist) and patient has agreed to or understands requirements for in-person training (when plausible) on use of the device. Yes Assessed patient and/or caregiver is competent to use sensor and able to reliably self-manage their diabetes (ex. able to apply sensor, appropriate health literacy to manage blood glucose based on sensor readings) Yes Able to attend follow-up visits (or telehealth) with mobile security specialist (Power Tool Repairer, PACT Pharmacist, DM educator) within initial 3 months, 6 months, and then annually thereafter for re-ordering product/supplies. Yes Adherence to appointments, insulin regimen, dietary guidelines as deemed adequate by diabetes provider. Yes Willing to continue to test capillary blood glucose (if required) by CGM product for calibration or other purpose. No Willing to submit documentation of glucose readings, insulin use, meals consumed, physical activity or other information on a scheduled basis and has IT capabilities to upload meter readings remotely (i.e. has ability to share data via carrie). (ONE or more of the following must be selected for patient to be eligible): [ ] Insulin Pump Therapy [ ] Recurrent episodes of ketoacidosis or hospitalizations for uncontrolled glucose levels. [ ] or planning [X] Basal-Bolus insulin therapy requiring blood glucose testing four times per day or more AND (National criteria viraj 1.31.19) [X] Labile glucose control with ongoing frequent insulin adjustments requiring CGM data [ ] Recurring episodes of unexplained symptomatic, nocturnal or other severe functionally disabling hypoglycemia requiring assistance of others, altered mental status, loss of consciousness, seizure, confusion or difficulty rousing in the past year; blood glucose <50mg/dl [ ] Unable to routinely check blood sugar readings using standard blood glucose meter due to occupational, physical (dexterity or vision problems), or other circumstances clearly documented in the medical record. Active Outpatient Medications (including Supplies): Outpatient Medications Status 1) ACCU-CHEK GUIDE (GLUCOSE) TEST STRIP USE 1 STRIP ACTIVE TOPICALLY FOUR TIMES A DAY TO CHECK BLOOD SUGAR--USE WITHIN 3 MINUTES OF REMOVING FROM CONTAINER 2) ATORVASTATIN CALCIUM 40MG TAB TAKE ONE TABLET BY ACTIVE MOUTH AT BEDTIME FOR CHOLESTEROL 3) EMPAGLIFLOZIN 25MG TAB TAKE ONE TABLET BY MOUTH EVERY ACTIVE DAY 4) INSULIN,ASPART 100UN/ML RENATE FLEXPEN 3ML INJECT 10 ACTIVE UNITS UNDER THE SKIN THREE TIMES A DAY WITH MEALS FOR DIABETES - SKIP DOSE IF NOT EATING 5) INSULIN,GLARGINE 100 UNT/ML 3ML SOLOSTAR INJECT 40 ACTIVE UNITS UNDER THE SKIN EVERY MORNING FOR DIABETES 6) LOSARTAN 50MG TAB TAKE ONE TABLET BY MOUTH EVERY DAY ACTIVE 7) METFORMIN HCL 1000MG TAB TAKE ONE TABLET BY MOUTH TWO ACTIVE TIMES A DAY FOR DIABETES FOR DIABETES 8) NEEDLE,PEN 31G,8MM USE 1 NEEDLE UNDER THE SKIN ACTIVE DIRECTED FOR INSULIN INJECTIONS *DISPOSE OF IN A HARD-PLASTIC CONTAINER WITH A SCREW-ON LID CONTACT GARBAGE HAULER FOR PROPER DISPOSAL Non-VA Medications Status 1) Non-VA ASPIRIN 81MG EC TAB 81MG MOUTH EVERY MORNING ACTIVE 2) Non-VA CYANOCOBALAMIN 1000MCG TAB 1000MCG MOUTH EVERY ACTIVE DAY 3) Non-VA CYCLOBENZAPRINE HCL 10MG TAB 10MG MOUTH THREE ACTIVE TIMES A DAY NEEDED 4) Non-VA HYDROCHLOROTHIAZIDE 25MG TAB 25MG MOUTH EVERY ACTIVE MORNING 12 Total Medications Weight: Measurement DT WEIGHT LB(KG)[BMI] 09/04/2022 11:01 205.9(93.39)[32*] 08/07/2022 14:00 199.5(90.49)[31*] 07/12/2022 09:42 201.6(91.44)[31*] DIABETES Labs: Collection DT Spec HGBA1C POCA1C 09/04/2022 11:46 BLOOD 9.5 H 07/12/2022 11:02 BLOOD 9.1 H 07/12/2022 11:01 BLOOD 9.2 H No data available C-PEPTIDE: SLT - C-Peptide Collection DT Specimen Test Name Result Units Ref Range 09/04/2022 11:47 SERUM !! C-PEPTIDE <0.10 L ng/mL 0.80 - 3.85 !! Indicates COMMENTS AVAILABLE...Refer to Interim Lab Report. GLUCOSE 130 H (09/04/22) CREATININE 0.8 (09/04/22) EGFR RESULT Laboratory test: ESTIMATED GFR(eGFR); specimen: PLASMA 07/13/2021@10:03:06 value - >60 Laboratory test: CREAT EGFR(CKD-EPI); specimen: PLASMA 09/04/2022@11:46:52 value - >90 SLT - Lab Tests Selected Collection DT Specimen Test Name Result Units Ref Range 09/04/2022 11:47 SERUM !! KSENIA-65 ANTIBODY >250 H IU/mL Ref: SEE BELOW !! Indicates COMMENTS AVAILABLE...Refer to Interim Lab Report. *Approval or disapproval for diabetes technology devices is based upon review of CPRS, JLV and outside records if available. If is meeting most of the basic criteria their case will be reviewed at the Diabetes Interdisciplinary Team Conference held twice monthly. Recommendations for diabetes care and final approval will be determined at that time. ASSESSMENT: 77-year-old with type 1 diabetes validated with low C-peptide and positive KSENIA antibodies referred to diabetes technology for consideration of personal CGM. was referred previously but needed lab verification of Type 1 diabetes. VISN criteria dictate that persons with type 1 diabetes are approved for personal CGM RECOMMENDATIONS: [place] meets basic criteria for personal CGM, will review his case at upcoming DM interdisciplinary case conference. /hi/ Zena Marie RN, [facility] Certified Diabetes Care & Strategic Analyst Signed: 09/12/2022 10:10 Receipt Acknowledged By: * AWAITING SIGNATURE * THELMA ARNOLD * AWAITING SIGNATURE * DAT DUFF,ZENA HAWK [facility]
--- OUTSIDE RECORDS SUMMARY | 2023-08-14 09:40 | XMS_ITS | Clinical Summary ---
Author Name Unknown Organization [facility] Address [address] [place] [address] Care Team Providers Care Space Control Supervisor Name Role Phone None Reported, Pcp Primary Care Provider Unavail able Source Comments Patient records contain information from all sites at [facility]. For routine questions regarding patient records, call [phone] during business hours, M-F 8:00 AM - 5:00 PM Central Time. Record requests for emergency care only can be directed to [phone] at any time.[facility] Allergies Active Allergy Reactions Criticality Noted Date Comments Bupropion Hcl Other (see comments) High 11/06/2021 Patient stated slipped over against the wall Medications Medication Sig Dispensed Refills Start Date End Date Status aspirin 81 mg chewable tablet 0 07/05/2016 Active cyanocobalamin (VITAMIN B12) 1,000 mcg tablet Take 1,000 mcg by mouth. 0 10/07/2021 Active oxyCODONE-acetamino phen (PERCOCET) 5-325 mg per tablet Take 1 tablet by mouth every 6 (six) hours as needed. 0 11/02/2008 Active insulin aspart U-100 (NovoLOG FlexPen) 100 unit/mL (3 mL) injection Inject 14 Units under the skin 3 (three) times a day with meals. 0 Active metFORMIN (GLUCOPHAGE) 1,000 mg tablet Take 1,000 mg by mouth daily with breakfast. Per pt meds -- 0 Active losartan (COZAAR) 50 mg tablet Take 50 mg by mouth daily. taking 0 Active atorvastatin (LIPITOR) 80 mg tablet Take 1 tablet (80 mg total) by mouth daily. 90 tablet 3 09/26/2022 Active clopidogreL (PLAVIX) 75 mg tablet Take 1 tablet (75 mg total) by mouth daily. Stop date 09/25/2023 30 tablet 11 09/26/2022 Active metoprolol succinate (TOPROL-XL) 50 mg 24 hr tablet Take 1 tablet (50 mg total) by mouth daily. Do not crush or chew. 30 tablet 11 09/26/2022 Active insulin glargine (LANTUS) 100 unit/mL injection Inject 50 Units under the skin every morning. Dose may need further adjustment 15 mL 0 09/26/2022 Active nitroglycerin (NITROSTAT) 0.[address] 1 tablet (0.4 mg total) under the tongue every 5 (five) minutes as needed for chest pain. May repeat every 5 minutes for up to 3 doses 25 tablet 11 09/26/2022 Active furosemide (LASIX) 40 mg tablet Take 1 tablet (40 mg total) by mouth daily. 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 09/22/2022 Diabetes Mellitus Type 2 09/22/2022 Hypertension Essential Primary 09/22/2022 Atherosclerotic Heart Diseas e Of [place] Coronary Artery Without Angina Pectoris 09/22/2022 Overview: Added automatically from request for surgery [id number] Resolved Problems Problem Noted Date Diagnosed Date Resolved Date Atherosclerotic Heart Diseas e Of [place] Coronary Artery Without Angina Pectoris 09/22/2022 09/22/2022 Social History Tobacco Use Types Packs/Day Years Used Date Smoking Tobacco: Former Cigarettes Tobacco Cessation:Counseling Given: Not Answered Alcohol Use Standard Drinks/Week Comments Not Currently [...] Sign Reading Time Taken Comments Blood Pressure 118/73 09/26/2022 2:00 PM [employer] TE[employer]ER Pulse 85 09/26/2022 2:00 PM [employer] Temperature 36.8 ??C (98.2 ??F) 09/26/2022 11:[address] Respiratory Rate 22 09/26/2022 2:00 PM [employer] Oxygen Saturation 98% 09/26/2022 2:00 PM [employer] Inhaled Oxygen Concentration - - Weight 88 kg (193 lb 14.7 oz) 09/26/2022 6:45 AM [employer] Height 172 cm (5' 7.72) 09/22/2022 10:15 AM [employer] Body Mass Index 29.73 09/22/2022 10:15 AM [employer] Plan of Treatment Health Maintenance Due Date Last Done Comments Diabetic Office Visit with F oot Exam 1947 Dilated Eye Exam 1947 Hepatitis C Screening 1945 Office Visit for Blood Press ure Check / Re-check 1947 Urine Albumin 1947 Visit: Chronic Disease, age 18+ 1947 Visit: Medicare Annual Wellness 1947 COVID-19 Vaccine (#1) 1945 Zoster Vaccines (1 of 2) 1997 Pneumococcal vaccine (65+ ye ars) (2 of 2 - PCV) 11/24/2013 11/24/2012, 01/10/2004 Hemoglobin A1C 12/21/2022 09/23/2022 Influenza Vaccine (#1) 2023 05/17/2011 Depression Screening (Annual PHQ-2) 07/29/2023 Fall Risk Screen (Annual) 07/29/2023 Creatinine Level (Kidney Fun ction Test) 09/27/2023 09/26/2022, 09/25/2022, 09/24/2022, Additional history exists Potassium Level 09/27/2023 09/26/2022, 08/30, 09/24/2022, Additional history exists Sodium Level 09/27/2023 09/26/2022, 08/30, 09/24/2022, Additional history exists DTaP,Tdap,and Td Vaccines (4 - Td or Tdap) 07/12/2032 07/12/2022, 11/24/2012, 06/11/2007, Additional history exists Abdominal Aortic Aneurysm (A AA) Screen Discontinued 11/01/2008, 11/01/2008, 10/31/2008 Medical Devices Implanted Type Area Lease Administration Supervisor Device Identifier Shelf Expiration Date Model / Serial / Lot Stnt Synergy Xd De 3.50x16 - [id number] Implanted:Qty: 1 on 09/22/2022 by Mike Garcia M.D., Ph.D. at [facility] Cardiac Stent N/A: Coronary [employer] 05/29/2024 [id number] / / [id number] Description:pLCX Stnt Synergy Xd De 3.00x38 - [id number] Implanted:Qty: 1 on 09/25/2022 by Mike Garcia M.D., Ph.D. at [facility] Cardiac Stent N/A: Coronary [employer] 05/20/2024 [id number] / / [id number] Description:mRCA Stent Percuflex 8 X 24 - [id number] Implanted:Qty: 1 on 07/10/2001 Ureteral Stent [employer] Description:Device Manufactu rer - [employer]. Device Status Text - [id number]. Advance Directives For more information, please contact: [phone] Latest Code Status on File Code Status Date Activated Date Inactivated Comments Full Code 09/25/2022 12:05 PM 09/26/2022 4:31 PM Question Answer Comments Full Code: Discussed Code Status History Code Status Date Activated Date Inactivated Comments Full Code 09/22/2022 8:59 AM 09/25/2022 12:05 PM Question Answer Comments Full Code: Discussed Care Teams Space Control Supervisor Relationship Specialty Start Date End Date None Reported, Pcp PCP - General Family Medicine 09/22/22
--- OUTSIDE RECORDS SUMMARY | 2023-08-14 09:40 | XMS_ITS ---
Author Name Unknown Organization [facility] Address [address] [place] [address] Care Team Providers Care Perfect Binder Operator Name Role Phone Unavailable Unavailable Unavailable Surgery Details Not on file Complications Check Surgery Details section. Procedure Estimated Blood Loss Check Surgery Details section. Procedure Findings Check Surgery Details section. Procedure Specimens Taken Check Surgery Details section.
--- OUTSIDE RECORDS SUMMARY | 2023-08-14 09:40 | XMS_ITS | Encounter Summary ---
Author Name [facility] Organization [facility] Address [address] [place] [id number] Support Name Relationship Address Phone BREE KHOURY Next of Kin [address] [place] [address] BREE KHOURY Emergency Contact [...] Policy Vaughn HUMANA MCR (WNR) MEDICARE ADVANTAGE [facility] ([facility]) Jul 29, 2021 [id number] KHOURY,WE SLEY PATIENT HUMANA MCR (WNR) MEDICARE ADVANTAGE [facility] (WNR) Jul 29, 2015 [id number] KHOURY,WE SLEY PATIENT HUMANA MCR (WNR) MEDICARE ADVANTAGE [facility] (WNR) Jul 29, 2015 [id number] KHOURY,WE SLEY PATIENT HUMANA MCR (WNR) MEDICARE ADVANTAGE [facility] (WNR) Jul 29, 2015 [id number] KHOURY,WE SLEY PATIENT Selected Encounter This section includes the information on record at PA for the Encounter. Date/Time Encounter Type Encounter Description Reason Provider Source Sep 04, 2022 10:45 AM OFFICE O/P EST MOD 30-39 MIN PRIMARY CARE/MEDICINE ICD-10-CM E11.9 Type 2 diabetes mellitus without complications ADRIENNE CROW [place] Encounter Template Text not used by PA Assessments - Encounter Diagnoses This section includes the primary and secondary diagnoses documented for the Encounter. Date/Time Primary/Secondary Diagnosis Diagnosis Name Provider Source Sep 04, 2022 03:00 PM PRIMARY Type 2 diabetes mellitus without complications ADRIENNE CROW (OC) Sep 04, 2022 03:00 PM SECONDARY Essential (primary) hypertension ADRIENNE CROW ([facility]) Sep 04, 2022 03:00 PM SECONDARY Mixed hyperlipidemia ADRIENNE CROW ([facility]) Plan of Treatment: Future Appointments (+ 6 months) and Future Tests (+/- 45 days) The Plan of Treatment section includes future care activities for the [facility] This section includes future appointments and future orders which are active, pending or scheduled. Future Appointments This section includes appointments that were scheduled to occur 6 months from the date of the Encounter, up to a maximum of 20 appointments. The data comes from all PA treatment facilities. Appointment Date/Time Appointment Type Appointme nt Facility Name Sep 19, 2022 10:30 AM AMBULATORY - NONE [facility] ([facility]) Oct 01, 2022 08:45 AM AMBULATORY - MEDICINE [facility] ([facility]) Oct 15, 2022 02:00 PM AMBULATORY - NONE [facility] Oct 19, 2022 10:30 AM AMBULATORY - NONE [facility]) Oct 22, 2022 12:15 PM AMBULATORY - MEDICINE [facility] Oct 22, 2022 12:30 PM AMBULATORY - MEDICINE [facility] Nov 16, 2022 10:30 AM [...] 2023 01:00 PM [facility] - [facility]ICINE [facility] Feb 07, 2023 02:15 PM AMBULATORY - MEDICINE [facility] Feb 18, 2023 11:00 AM AMBULATORY - MEDICINE [facility] Feb 19, 2023 08:00 AM AMBULATORY - NONE [facility] ([facility]) Feb 22, 2023 01:30 PM [facility]ORY - MEDICINE [facility] ([facility]) Mar 04, 2023 02:30 PM AMBULATORY - MEDICINE [facility] Lab Results: +/- 30 days [...] Range Comment Oct 01, 2022 09:41 AM [facility] ([facility]) BASIC METABOLIC PANEL+MG Specimen Type: PLASMA No comment entered. Ordering Provider: ADRIENNE CROW Report Released Date/Time: Oct 01, 2022 09:30 AM Reporting Lab: [facility] [id number] Performing Lab: [facility] [address] CREATININE 0.8 0.7-1.2 UREA NITROGEN 20 8-26 GLUCOSE 146 H 70-100 SODIUM 140 136-145 POTASSIUM 4.0 3.5-5.1 CHLORIDE 103 98-107 CO2 28 22-29 CALCIUM 9.3 8.4-10.2 MAGNESIUM 1.7 1.6-2.6 ANION GAP 9 5-15 CREAT EGFR(CKD-EPI) >90 >60 Oct 01, 2022 09:41 AM [facility] ([facility]) CBC Specimen Type: BLOOD No comment entered. Ordering Provider: ADRIENNE CROW Report Released Date/Time: Oct 01, 2022 09:30 AM Reporting Lab: [facility] [id number] Performing Lab: [facility] [address] WBC 9.32 4.0-11.0 RBC 5.08 4.6-6.2 HGB 13.3 L 13.5-17.9 HCT 42.3 41-54 MCV 83.3 80-100 MCH 26.2 L 27-33 MCHC 31.4 L 32.0-37.5 PLT 484 H 150-400 MPV 9.3 7.4-10.4 RDW 14.1 11.5-14.5 Sep 04, 2022 11:47 AM [facility]) URINALYSIS Specimen Type: URINE No comment entered. Ordering Provider: ADRIENNE CROW Report Released Date/Time: Sep 04, 2022 11:40 AM Reporting Lab: [facility] [address] Performing Lab: [facility] [address] URINE COLOR COLORLESS SPECIFIC GRAVITY 1.022 1.003-1.03 [...] NEGATIVE NEGATIVE Sep 04, 2022 11:46 AM [facility] C-PEPTIDE Specimen Type: SERUM Comment: Test Performed by [employer], [address] [place] [address] [place] M.D., Ph.D., Director of Laboratories , CLIA [id number] Ordering Provider: JUANCARLOS BOYKIN Report Released Date/Time: Jul 19, 2022 09:30 AM Reporting Lab: [facility] [address] Performing Lab: [address] C-PEPTIDE <0.10 L 0.80-3.85 Sep 04, 2022 11:46 AM [facility] KSENIA-65 ANTIBODY Specimen Type: SERUM Comment: REFERENCE RANGE: <5 IU/mL This test was performed using the GAD65 ZOHRA method, which is standardized against the International reference preparation 97/550. Test Performed by [employer], [employer], [address] [place] [address] [place] M.D., Ph.D., Director of Laboratories , CLIA [id number] Ordering Provider: JUANCARLOS BOYKIN Report Released Date/Time: Jul 19, 2022 09:30 AM Reporting Lab: [facility] [phone] Performing Lab: [facility] [address] [facility] KSENIA-65 ANTIBODY >250 H SEE BELOW Sep 04, 2022 11:46 AM [facility] GLUCOSE Specimen Type: PLASMA No comment entered. Ordering Provider: JUANCARLOS BOYKIN Report Released Date/Time: Jul 19, 2022 09:30 AM Reporting Lab: [facility] [address] Performing Lab: [facility] [address] GLUCOSE 130 H 70-100 Sep 04, 2022 11:46 AM [facility] ([facility]) HEMOGLOBIN A1C Specimen Type: BLOOD [...] Sep 04, 2022 11:36 AM Reporting Lab: [facility] [address] Performing Lab: [facility] [address] HEMOGLOBIN A1C 9.5 H 4.0-6.0 Sep 04, 2022 11:46 AM [facility] ([facility]) BNP Specimen Type: PLASMA No comment entered. Ordering Provider: ADRIENNE CROW Report Released Date/Time: Sep 04, 2022 11:36 AM Reporting Lab: [facility] [address] Performing Lab: [facility] [address] BNP <10 <99 Sep 04, 2022 11:46 AM [facility] ([facility]) COMPREHENSIVE METABOLIC PANEL+MG Specimen Type: PLASMA No comment entered. Ordering Provider: ADRIENNE CROW Report Released Date/Time: Sep 04, 2022 11:36 AM Reporting Lab: [facility] [address] Performing Lab: [facility] [address] CREATININE 0.8 0.7-1.2 UREA NITROGEN 18 8-26 GLUCOSE 130 H 70-100 SODIUM 139 136-145 POTASSIUM 3.8 3.5-5.1 CHLORIDE 102 98-107 CO2 25 22-29 CALCIUM 9.6 8.4-10.2 PROTEIN,TOTAL 7.7 6.0-8.3 ALBUMIN 4.0 3.5-5.2 BILIRUBIN, TOTAL 0.5 0.2-1.2 MAGNESIUM 1.7 1.6-2.6 ANION GAP 12 5-15 ALKALINE PHOSPHATASE 108 40-150 ALT/SGPT 17 <55 AST/SGOT 18 <34 CREAT EGFR(CKD-EPI) >90 >60 Sep 04, 2022 11:46 AM [facility] ([facility]) CBC Specimen Type: BLOOD No comment entered. Ordering Provider: ADRIENNE CROW Report Released Date/Time: Sep 04, 2022 11:37 AM Reporting Lab: [facility] [phone] Performing Lab: [facility] [address] WBC 7.80 4.0-11.0 RBC 5.42 4.6-6.2 HGB 14.8 13.5-17.9 HCT 44.9 41-54 MCV 82.8 80-100 MCH 27.3 27-33 MCHC 33.0 32.0-37.5 PLT 355 150-400 MPV 9.5 7.4-10.4 RDW 14.3 11.5-14.5 Vital Signs: All taken on the encounter date This section contains inpatient and outpatient Vital Signs collected on the date of the Encounter. Date/Time Temperature Pulse Blood Pressure Respiratory Rate SP02 Pain Height Weight Body Mass Index Source Sep 04, 2022 11:01 AM 98.2 F 77 /min 136/80 mm[Hg] 20 /min 95 % 6 67.5 in 205.9 lb 32 [facility] Social History: Smoking Status (Most current) and Tobacco Use (All prior to encounter date) This section includes the most current, and the historical, smoking and tobacco- related health factors from the PA facility where the Encounter took place. Current Smoking Status This section includes the most current smoking, or tobacco-related health factor, from the PA facility where the Encounter took place. Date/Time Current Smoking Status Comment Facil peg Jul 12, 2022 09:45 AM VA-TOBACCO FORMER USER [facility] ([facility]) Tobacco Use History This section includes a history of the smoking, or tobacco-related health factors, that were collected on or before the date of the Encounter. The data comes from the PA facility where the Encounter took place. Date/Time Smoking Status/Tobacco Use Comment F acility Jul 12, 2022 09:45 AM VA-TOBACCO QUIT 5 TO < 15 YRS [facility] ([facility]) Jul 13, 2021 09:15 AM VA-TOBACCO FORMER USER [facility] ([facility]) Jul 13, 2021 09:15 AM VA-TOBACCO QUIT 5 TO < 15 YRS [facility] ([facility]) Jun 28, 2020 09:15 AM VA-TOBACCO FORMER USER [facility] ([facility]) Jun 28, 2020 09:15 AM VA-TOBACCO QUIT 5 TO < 15 YRS [facility] ([facility]) Mar 23, 2019 03:20 PM VA-TOBACCO FORMER USER [facility] ([facility]) Mar 23, 2019 03:20 PM VA-TOBACCO QUIT 5 TO < 15 YRS [facility] ([facility]) Apr 01, 2018 02:59 PM VA-TOBACCO FORMER USER [facility] ([facility]) Apr 01, 2018 02:59 PM VA-TOBACCO QUIT 5 TO < 15 YRS [facility] ([facility]) Jun 28, 2017 01:51 PM FORMER TOBACCO USER 7Y OR [facility] ([facility]) Jun 29, 2016 08:43 AM FORMER TOBACCO USE >1Y <7Y [facility] ([facility]) Radiology Reports: +/- 30 days of [...] the Encounter. The data comes from all PA treatment facilities. Date/Time Radiology Report Provider Source Sep 04, 2022 11:46 AM CHEST 2 VIEWS PA A ND LAT: JULIUS KHOURY [id number] [id number] M Exm Date: SEP 04, 2022@11:46 Req Phys: ADRIENNE CROW Pat Loc: [facility] (Req'g Loc Img Loc: [facility] Service: Unknown (Case [id number] COMPLETE) CHEST 2 VIEWS PA AND LAT (RAD Detailed) CPT:93605 Reason for Study: ankle sweling, sob Clinical History: Caret IS NOT under investigation for COVID-19 or is COVID-19 negative ankle swelling, sob Responsible provider name and phone number to notify for critical findings if other than user placing the order and pager listed below: User placing orders pager: adrienne crow LAST CREATININE 0.9 (07/12/22) Report Status: Verified Date Reported: SEP 04, 2022 Date Verified: SEP 04, 2022 [employer] E-Sig:/ES/GENE LORA MD Report: DATE/TIME REGISTERED: 09/04/2022 [...] chest for age. Primary Interpreting Staff: GENE LOAR MD, RADIOLOGIST ([place]air[facility]) /GENE RIVAS [facility] Encounter Notes: All associated encounter notes This section contains the clinical notes associated to the Encounter. Date/Time Encounter Note(s) Provider Source Sep 04, 2022 02:38 PM PRIMARY CARE NOTE: [facility]AL T[facility]: [facility] CARE NOTE DATE OF NOTE: SEP 04, 2022@14:38 ENTRY DATE: SEP 04, 2022@14:38:07 AUTHOR: ADRIENNE CROW EXP COSIGNER: URGENCY: STATUS: COMPLETED Type of Visit:Julius Khoury comes in beucase his ankles have been swollen for about 1 week;no pain, denies sob.His weight increased during the week. He's not comanaged. His is in the hospital with heart problems. Also having increased pain in both hips radiating to groin. He often uss a cane and would like a handicapped parking permit. His blood sugars have been better 110-170. Reason for Visit: HPI: 77 years old [...] tobacco use 8. Multiple nodules of lung Past Surgical History: left inguinal hernia repair 08/2018 Family History: Father and sister with diabetes mellitus. Father of massive heart attack at his early 70's. Mother lived into 90s with dementia. His 40 year old son just had a heart attack. Denies a family history of prostate or colon cancer. Social History: , and lives with who is currently at the hospital. Former smoker, smoked for 55 years. Doesn't drink. Review of Systems: HEENT-negative Respiratory-negative Cardiac-no hest pains, no orthopnea, no increased sob. Muskuloskeletal-pain in boht hips radiating to groin. Neurologic-negative Psychiatric-negative Physical Exam: Temp: 98.2 F [36.8 C] (09/04/2022 11:01) Pulse:77 (09/04/2022 11:01) BP: 136/80 (09/04/2022 11:01) Resp: 20 (09/04/2022 11:01) Weight: 205.9 lb [93.39 kg] (09/04/2022 11:01) Pain: 6 (09/04/2022 11:01) O2 Sat: 95% (09/04/2022 11:01) BMI: 31.8 General: AAOx3, NAD HEENT: PERRL, EOMI, no scleral icterus, neck supple, CV: S1, S2, regular rate, 2/6 holosystolic murmur left sternal border. No s3, s4, no jvd. Lungs: CTAB, no crackles, no wheezing Abd: soft, NT/ND, +BS, no rebound, no guarding;obese Extrem: no c/c/He has 2+ edemaboth legs, no calf tenderness. Neuro: alert, gait normal. He has pain with internal rotation both hips. Labs: - Complete Blood Count (red/white blood cell counts and platelets) White count: WBC 7.05 (07/12/22) (normal is 4.0-11.0) Hemoglobin: HGB 16.5 (07/12/22) (normal Male is 13.5-17.9) (normal Female is 11.5-16) Hematocrit: HCT 50.1 (07/12/22) (normal Male is 41-54) (normal Female is 34.5-48) Platelets: PLT 299 (07/12/22) (normal is 150-400) - Electrolytes including sodium and potassium SODIUM 141 (07/12/22) (normal is 136-145) POTASSIUM 3.6 (07/12/22) (normal is 3.5-5.0) CHLORIDE 104 (07/12/22) (normal is 98-107) CO2 25 (07/12/22) (normal is 21-32) UREA NITROGEN 20 (07/12/22) (normal Male is 8-26) (normal Female = 10-20) CREATININE 0.9 (07/12/22) (normal Male is 0.7-1.2) (normal Female is 0.5-1.0) GLUCOSE 64 L (07/12/22) (normal is 70-100) CALCIUM 10.1 (07/12/22) (normal is 8.5-10.1) EGFR (03/01) 07/13/21 @ 1003 82 CREATININE EGFR (CKD-EPI) 07/12/22 @ 1101 89 (normal is >/=60) - Liver function Tests AST/SGOT____ (normal is 15-37) ALT/SGPT____ (normal is 13-61) BILIRUBIN, TOTAL____ (normal is 0.2-1.0) - Cholesterol Tests (HDL = good and LDL = bad) CHOLESTEROL____ (prefer less than 200) TRIGLYCERIDE____ (prefer less than 150) HDL____ (prefer more than 39) LDL CALCULATION____ (prefer less than 100) MEASURED LDL____ (prefer less than 100) - Glycosylated Hemoglobin (good diabetic control if less than 7.0) HEMOGLOBIN A1C 9.1 H (07/12/22) (normal range is 4.0-6.0) POC HGB A1C____ Essential Medication List - reviewed with Patient/Caregiver FACILITY ALLERGY/ADR -------- No Remote Allergy/ADR Data available for this patient [facility] LISINOPRIL [facility] PIOGLITAZONE [facility] SEMAGLUTIDE [facility] WELLBUTRIN Active Medications: + +--------+- -------+--------+--------+ Medication (Local) New Med Old Dose New Dose Discontd + +--------+- -------+--------+--------+ ACCU-CHEK GUIDE (GLUCOSE) TEST STRIP Directions: USE 1 STRIP TOPICALLY FOUR TIMES A DAY TO CHECK BLOOD SUGAR--USE WITHIN 3 MINUTES OF REMOVING FROM CONTAINER Expires: 12/01/22 Status: ACTIVE + +--------+- -------+--------+--------+ ATORVASTATIN CALCIUM 40MG TAB Directions: TAKE ONE TABLET BY MOUTH AT BEDTIME FOR CHOLESTEROL Expires: 12/15/22 Status: ACTIVE + +--------+- -------+--------+--------+ EMPAGLIFLOZIN 25MG TAB Directions: TAKE ONE TABLET BY MOUTH EVERY DAY Expires: 12/08/22 Status: ACTIVE + +--------+- -------+--------+--------+ INSULIN,GLARGINE 100 UNT/ML 3ML SOLOSTAR Directions: INJECT 40 UNITS UNDER THE SKIN EVERY MORNING FOR DIABETES Expires: 07/13/23 Status: ACTIVE + +--------+- -------+--------+--------+ LOSARTAN 50MG TAB Directions: TAKE ONE TABLET BY MOUTH EVERY DAY Expires: 06/15/23 Status: ACTIVE + +--------+- -------+--------+--------+ METFORMIN HCL 1000MG TAB Directions: TAKE ONE TABLET BY MOUTH TWO TIMES A DAY FOR DIABETES FOR DIABETES Expires: 07/13/23 Status: ACTIVE + +--------+- -------+--------+--------+ NEEDLE,PEN 31G,8MM Directions: USE 1 NEEDLE UNDER THE SKIN DIRECTED FOR INSULIN INJECTIONS *DISPOSE OF IN A HARD-PLASTIC CONTAINER WITH A SCREW-ON LID CONTACT MACKENZIE JIM FOR PROPER DISPOSAL Expires: 07/20/23 Status: ACTIVE + +--------+- -------+--------+--------+ INSULIN,ASPART 100UN/ML RENATE FLEXPEN 3ML Directions: INJECT 10 UNITS UNDER THE SKIN THREE TIMES A DAY WITH MEALS FOR DIABETES SKIP DOSE IF NOT EATING Expires: 08/22/23 Status: HOLD + +--------+- -------+--------+--------+ Pending Medications: + +--------+- -------+--------+--------+ Medication (Local) New Med Old Dose New Dose Discontd + +--------+- -------+--------+--------+ INSULIN,ASPART 100UN/ML RENATE FLEXPEN 3ML Directions: INJECT 10 UNITS UNDER THE SKIN THREE TIMES A DAY WITH MEALS SKIP DOSE IF NOT EATING Quantity: 5 Status: PENDING + +--------+- -------+--------+--------+ ========= Medications (Past 90 days): ========= + +--------+- -------+--------+--------+ Medication (Local) New Med Old Dose New Dose Discontd + +--------+- -------+--------+--------+ LOSARTAN 50MG TAB X Directions: TAKE ONE TABLET BY MOUTH EVERY DAY Expires: 06/08/22 Status: + +--------+- -------+--------+--------+ METFORMIN HCL 1000MG TAB X Directions: TAKE ONE TABLET BY MOUTH TWO TIMES A DAY FOR DIABETES Expires: 06/08/22 Status: + +--------+- -------+--------+--------+ Non-VA Medications: + +--------+- -------+--------+--------+ Medication (Local) New Med Old Dose New Dose Discontd + +--------+- -------+--------+--------+ ASPIRIN 81MG EC TAB Directions: 81MG MOUTH EVERY MORNING Status: ACTIVE + +--------+- -------+--------+--------+ CYANOCOBALAMIN 1000MCG TAB Directions: 1000MCG MOUTH EVERY DAY Status: ACTIVE + +--------+- -------+--------+--------+ CYCLOBENZAPRINE HCL 10MG TAB Directions: 10MG MOUTH THREE TIMES A DAY NEEDED Status: ACTIVE + +--------+- -------+--------+--------+ HYDROCHLOROTHIAZIDE 25MG TAB Directions: 25MG MOUTH EVERY MORNING Status: ACTIVE + +--------+- -------+--------+--------+ Discontinued Medications (Past 90 days): + +--------+- -------+--------+--------+ Medication (Local) New Med Old Dose New Dose Discontd + +--------+- -------+--------+--------+ EMPAGLIFLOZIN 25MG TAB X Directions: TAKE ONE TABLET BY MOUTH EVERY DAY Status: DISCONTINUED + +--------+- -------+--------+--------+ INSULIN NPH [...] DISPOSAL Status: DISCONTINUED + +--------+- -------+--------+--------+ INSULIN,ASPART 100UNIT/ML [...] Status: DISCONTINUED + +--------+- -------+--------+--------+ ATORVASTATIN CALCIUM 80MG TAB X Directions: TAKE ONE-HALF TABLET BY MOUTH AT BEDTIME FOR CHOLESTEROL Status: DISCONTINUED (EDIT) + +--------+- -------+--------+--------+ INSULIN,ASPART 100UN/ML RENATE FLEXPEN 3ML X Directions: INJECT 6 UNITS UNDER THE SKIN EVERY MORNING AND INJECT 8 UNITS EVERYDAY AT NOON AND INJECT 8 UNITS EVERY EVENING FOR DIABETES Status: DISCONTINUED (EDIT) + +--------+- -------+--------+--------+ Imaging CHEST 2 VIEWS PA AND LAT Exm Date: SEP 04, 2022@11:46 Req Phys: ADRIENNE CROW Loc: [facility] (Req'g Loc Img Loc: [facility] Service: Unknown (Case [id number] COMPLETE) CHEST 2 VIEWS PA AND LAT (RAD Detailed) CPT:72309 Reason for Study: ankle sweling, sob Clinical History: Caret IS NOT under investigation for COVID-19 or is COVID-19 negative ankle swelling, sob Responsible provider name and phone number to notify for critical findings if other than user placing the order and pager listed below: User placing orders pager: adrienne crow LAST CREATININE 0.9 (07/12/22) Report Status: Verified Date Reported: SEP 04, 2022 Date Verified: SEP 04, 2022 [employer] E-Sig:/ES/GENE LORA MD Report: DATE/TIME REGISTERED: 09/04/2022 [...] Primary Interpreting Staff: GENE LORA MD, RADIOLOGIST ([employer]) /MICA Assessment/Plan: 1. Ankle swelling-no sign CHF on exam or chest xray. I suggested he cut down on salt, wear compression stockings.FU 1 month. If edema persists, might try ading furosemide. 2. Bilateral hip pain-did fill out handicapped parking form. [facility]. 3. Difficult to control diabetes.We recently changed his insulins. 4. Heart murmur-sounds like aortic stenosis. Will request [facility] echocardiogram. - Vaccinations: IM - Immunizations Immunization Series Date Facility Reaction Info COVID-19 (JAMAR), VECTOR-NR, RS* 1 12/10/2020 [facility] * <C> COVID-19 (PFIZER), MRNA, LNP-S, P* 2 08/30/2021 [facility] * <C> HEP B, ADULT 07/02/2011 [facility]* 05/17/2011 [facility] PNEUMOCOCCAL CONJUGATE PCV 13 06/29/2016 [facility] * <C> PNEUMOCOCCAL POLYSACCHARIDE PPV23 11/24/2012 [facility]* <C> 01/10/2004 [facility]* <C> TDAP B 07/12/2022 [facility] * 11/24/2012 [facility]* ZOSTER LIVE 06/29/2016 [facility] * <C> ZOSTER RECOMBINANT 2 10/03/2020 [facility] * 1 07/05/2020 [facility] * <C> See the Detailed Immunizations Health Summary Component[DIM] for Comments RTC in 1 mo for fu Clinical Reminders: /hi/ ADRIENNE CROW [facility] physician Signed: 09/04/2022 15:02 ADRIENNE CROW [facility] ([facility]) Sep 04, 2022 11:02 AM PRIMARY CARE NURSI NG NOTE: LOCAL TITLE: [facility] NURSING PROGRESS NOTE STANDARD TITLE: PRIMARY CARE NURSING NOTE DATE OF NOTE: SEP 04, 2022@11:02 ENTRY DATE: SEP 04, 2022@11:02:10 AUTHOR: AMARILIS SAMPSON COSIGNER: URGENCY: STATUS: COMPLETED TYPE OF VISIT: Appointment Check In Type of appointment: In-person appointment REASON FOR VISIT: Diabetes follow up, swelling in both hips and legs ALLERGIES: WELLBUTRIN (Jun 29, 2016) LISINOPRIL (Sep 25, 2018) PIOGLITAZONE (Feb 17, 2019) SEMAGLUTIDE (Jan 10, 2022) VITAL SIGNS: Blood Pressure: 136/80 (09/04/2022 11:01) Pulse: 77 (09/04/2022 11:) Respiration: 20 (09/04/2022 11:) Temperature: 98.2 F [36.8 C] (09/04/2022 11:) Weight: 205.9 lb [93.39 kg] (09/04/2022:) Height: 67.5 in [171.5 cm] (09/04/2022 11:) BMI: 31.8 O2 Sat: 95% (09/04/2022 11:) Pain: 6 (09/04/2022:) PAIN SCREEN: Patient is having significant pain that they would like to talk to their provider about today. Acute pain is new pain, which as been present for less than 6 months Words used to describe pain: sharp, achy, throbbing Number that best describes pain intensity on average in the past week: 8 Pain located in the following location(s): legs, other: hips Pain has been happening for: 1-3 months Pain is worse when: bending, standing, walking Pain is better when: resting, other: sitting in chair Influenza Immunization: The patient declines to receive the recommended dose of seasonal influenza vaccine. Immunization: INFLUENZA, UNSPECIFIED FORMULATION Refusal Reason: PATIENT DECISION Patient refuses all immunization(s) in the FLU group Date Documented: 09/04/22 11:04 COVID-19 Immunization Booster: Refused Pfizer Bivalent COVID-19 booster Immunization: COVID-19 (PFIZER), MRNA, LNP-S, BIVALENT BOOSTER, PF, 30 MCG/0.3 ML DOSE Refusal Reason: PATIENT DECISION Patient refuses all immunization(s) in the COVID-19 group Date Documented: 09/04/22 11:04 /hi/ AMARILIS SAMPSON LPN LPN [facility] Signed: 09/04/2022 11:04 AMARILIS SAMPSON ([facility])
--- OUTSIDE RECORDS SUMMARY | 2023-08-14 09:40 | XMS_ITS | Referral Summary ---
Author Name Unknown Organization [facility] Address [address] [place] [address] Care Team Providers Care [place] Agent Name Role Phone None Reported, Pcp Primary Care Provider Unavail able Source Comments Patient records contain information from all sites at [facility]. For routine questions regarding patient records, call [phone] during business hours, M-F 8:00 AM - 5:00 PM Central Time. 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 09/22/2022 Overview: Added automatically from request for surgery [id number] Resolved Problems Problem Noted Date Diagnosed Date Resolved Date Atherosclerotic Heart Diseas e Of [place] Coronary Artery Without Angina Pectoris 09/22/2022 09/22/2022 [...] Comments Blood Pressure 118/73 09/26/2022 2:00 PM COUNTRY PRINTER Pulse 85 09/26/2022 2:00 PM COUNTRY PRINTER Temperature 36.8 ??C (98.2 ??F) 09/26/2022 11:[address] Respiratory Rate 22 09/26/2022 2:00 PM COUNTRY PRINTER Oxygen Saturation 98% 09/26/2022 2:00 PM COUNTRY PRINTER Inhaled Oxygen Concentration - - Weight 88 kg (193 lb 14.7 oz) 09/26/2022 6:45 AM COUNTRY PRINTER Height 172 cm (5' 7.72) 09/22/2022 10:15 AM COUNTRY PRINTER Body Mass Index 29.73 09/22/2022 10:15 AM COUNTRY PRINTER Plan of Treatment Not on file Medical Devices Implanted Type Area Ror Engineer Device Identifier Shelf Expiration Date Model / Serial / Lot Stnt Synergy Xd De 3.50x16 - [id number] Implanted:Qty: 1 on 09/22/2022 by Mike Garcia M.D., Ph.D. at [facility] Cardiac Stent N/A: Coronary [employer] 05/29/2024 [id number] / / [id number] Description:pLCX Stnt Synergy Xd De 3.00x38 - [id number] Implanted:Qty: 1 on 09/25/2022 by Mike Garcia M.D., Ph.D. at [facility] Cardiac Stent N/A: Coronary [employer] 05/20/2024 [id number] / / [id number] Description:mRCA Stent Percuflex 8 X 24 - [id number] Implanted:Qty: 1 on 07/10/2001 Ureteral Stent [employer] Description:Device Manufactu rer - [employer]. Device Status Text - [id number]. Advance Directives For more information, please contact: [phone] Latest Code Status on File Code Status Date Activated Date Inactivated Comments Full Code 09/25/2022 12:05 PM 09/26/2022 4:31 PM Question Answer Comments Full Code: Discussed Code Status History Code Status Date Activated Date Inactivated Comments Full Code 09/22/2022 8:59 AM 09/25/2022 12:05 PM Question Answer Comments Full Code: Discussed Care Teams Depot Agent Relationship Specialty Start Date End Date None Reported, Pcp PCP - General Family Medicine 09/22/22
--- OUTSIDE RECORDS SUMMARY | 2023-08-14 09:40 | XMS_ITS | Encounter Summary ---
Author Name [facility] Organization [facility] of [facility] Address [address] [place] [address] Support Name Relationship Address Phone BREE KHOURY Next of Kin [address] [place] [address] BREE KHOURY Emergency Contact [address] [place] [address] Insurance Providers: All historical and [...] Name Patient's Relationship to Policy Vaughn [employer] [facility] (WNR) MEDICARE ADVANTAGE [facility] (R) Jul 29, 2021 [id number] KHOURY,WE SLEY PATIENT [employer] M[facility] (WNR) MEDICARE ADVANTAGE [facility] (WNR) Jul 29, 2015 [id number] KHOURY,WE SLEY PATIENT [employer] M[facility] (WNR) MEDICARE ADVANTAGE [facility] (WNR) Jul 29, 2015 [id number] KHOURY,WE SLEY PATIENT [employer] MCR (WNR) MEDICARE ADVANTAGE [facility] (WNR) Jul 29, 2015 [id number] [phone] KHOURY,WE SLEY PATIENT Selected Encounter This section includes the information on record at [place] for the Encounter. Date/Time Encounter Type Encounter Description Reason Provider Source Aug 21, 2022 09:45 AM CONT [facility]NALYSIS [facility] ICD-10-CM E11.9 Type 2 diabetes mellitus without complications HELEN AYON Encounter Template Text not used by [facility] Assessments - Encounter Diagnoses This section includes the primary and secondary diagnoses documented for the Encounter. Date/Time Primary/Secondary Diagnosis Diagnosis Name Provider Source Aug 21, 2022 01:25 PM PRIMARY Type 2 diabetes mellitus without complications HELEN AYON (CB) Plan of Treatment: Future Appointments (+ 6 months) and Future Tests (+/- 45 days) The Plan of Treatment section includes future care activities for the patient from all [place] treatmentfacilities. This section includes future appointments and future orders which are active, pending or scheduled. Future Appointments This section includes appointments that were scheduled to occur 6 months from the date of the Encounter, up to a maximum of 20 appointments. The data comes from all [place] treatment facilities. Appointment Date/Time Appointment Type Appointme nt Facility Name Sep 04, 2022 10:45 AM [facility]ULATORY - MEDICINE [facility] ([facility]) Sep 19, 2022 10:30 AM AMBULATORY - NONE [facility] ([facility]) Oct 01, 2022 08:45 AM [facility]ULATORY - MEDICINE [facility] ([facility]) Oct 15, 2022 02:00 PM AMBULATORY - NONE [facility] Oct 19, 2022 10:30 AM AMBULATORY - NONE [facility] Oct 22, 2022 12:15 PM AMBULATORY - MEDICINE [facility] Oct 22, 2022 12:30 PM AMBULATORY - MEDICINE [facility] Nov 16, 2022 10:30 AM AMBULATORY - [...] 07, 2023 01:00 PM AMBULATORY - MEDICINE [facility] Feb 07, 2023 02:15 PM AMBULATORY - MEDICINE [facility] Feb 18, 2023 11:00 AM AMBULATORY - MEDICINE [facility] Lab [...] Result - Unit Interpretation Reference Range Comment Sep 04, 2022 11:47 AM [facility]) URINALYSIS Specimen Type: URINE No comment entered. Ordering Provider: ADRIENNE CROW Report Released Date/Time: Sep 04, 2022 11:40 AM Reporting Lab: [facility] [id number] Performing Lab: [facility] [id number] URINE COLOR COLORLESS SPECIFIC GRAVITY 1.022 1.003-1.03 [...] NEGATIVE NEGATIVE Sep 04, 2022 11:46 AM [facility] C-PEPTIDE Specimen Type: SERUM Comment: Test Performed by [facility], [address] [place] [address] [place] M.D., Ph.D., Director of Laboratories , [facility] [id number] Ordering Provider: JUANCARLOS BOYKIN Report Released Date/Time: Jul 19, 2022 09:30 AM Reporting Lab: [facility] [id number] Performing Lab: [address] C-PEPTIDE <0.10 L 0.80-3.85 Sep 04, 2022 11:46 AM [facility] KSENIA-65 ANTIBODY Specimen Type: SERUM Comment: REFERENCE RANGE: <5 IU/mL This test was performed using the GAD65 ZOHRA method, which is standardized against the International reference preparation 97/550. Test Performed by [facility], [address] [place] [address] [place] M.D., Ph.D., Director of Laboratories , [facility] [id number] Ordering Provider: JUANCARLOS BOYKIN Report Released Date/Time: Jul 19, 2022 09:30 AM Reporting Lab: [facility] [id number] Performing Lab: [address] KSENIA-65 ANTIBODY >250 H SEE BELOW Sep 04, 2022 11:46 AM [facility] GLUCOSE Specimen Type: PLASMA No comment entered. Ordering Provider: JUANCARLOS BOYKIN Report Released Date/Time: Jul 19, 2022 09:30 AM Reporting Lab: [facility] [id number] Performing Lab: [facility] [id number] GLUCOSE 130 H 70-100 Sep 04, 2022 11:46 AM [place] [facility]) HEMOGLOBIN A1C Specimen Type: BLOOD Comment: [...] Sep 04, 2022 11:36 AM Reporting Lab: [facility] [address] Performing Lab: [facility] [address] HEMOGLOBIN A1C 9.5 H 4.0-6.0 Sep 04, 2022 11:46 AM [place] [facility]) BNP Specimen Type: PLASMA No comment entered. Ordering Provider: ADRIENNE CROW Report Released Date/Time: Sep 04, 2022 11:36 AM Reporting Lab: [facility] [address] Performing Lab: [facility] [address] BNP <10 <99 Sep 04, 2022 11:46 AM [place] [facility]) CBC Specimen Type: BLOOD No comment entered. Ordering Provider: ADRIENNE CROW Report Released Date/Time: Sep 04, 2022 11:37 AM Reporting Lab: [facility] [address] Performing Lab: [facility] [address] WBC 7.80 4.0-11.0 RBC 5.42 4.6-6.2 HGB 14.8 13.5-17.9 HCT 44.9 41-54 MCV 82.8 80-100 MCH 27.3 27-33 MCHC 33.0 32.0-37.5 PLT 355 150-400 MPV 9.5 7.4-10.4 RDW 14.3 11.5-14.5 Sep 04, 2022 11:46 AM [place] ([facility]) COMPREHENSIVE METABOLIC PANEL+MG Specimen Type: PLASMA No comment entered. Ordering Provider: ADRIENNE CROW Report Released Date/Time: Sep 04, 2022 11:36 AM Reporting Lab: [facility] [address] Performing Lab: [facility] [address] CREATININE 0.8 0.7-1.2 UREA NITROGEN 18 8-26 [...] and tobacco- related health factors from the [place] facility where the Encounter took place. Current Smoking Status This section includes the most current smoking, or tobacco-related health factor, from the [place] facility where the Encounter took place. Date/Time Current Smoking Status Comment Facil ity Jul 12, 2022 09:45 AM [place]-TOBAC[place] FORMER USER [place] ([facility]) Tobacco Use History This section includes a history of the smoking, or tobacco-related health factors, that were collected on or before the date of the Encounter. The data comes from the [place] facility where the Encounter took place. Date/Time Smoking Status/Tobacco Use Comment F acility Jul 12, 2022 09:45 AM [facility]-TOBACCO QUIT 5 TO < 15 YRS [place] ([facility]) Jul 13, 2021 09:15 AM VA-TOBACCO FORMER USER [place] ([facility]) Jul 13, 2021 09:15 AM VA-TOBACCO QUIT 5 TO < 15 YRS [place] ([facility]) Jun 28, 2020 09:15 AM VA-TOBACCO FORMER USER [place] ([facility]) Jun 28, 2020 09:15 AM VA-TOBACCO QUIT 5 TO < 15 YRS [place] ([facility]) Mar 23, 2019 03:20 PM VA-TOBACCO FORMER USER [place] ([facility]) Mar 23, 2019 03:20 PM VA-TOBACCO QUIT 5 TO < 15 YRS [place] ([facility]) Apr 01, 2018 02:59 PM VA-TOBACCO FORMER USER [place] ([facility]) Apr 01, 2018 02:59 PM VA-TOBACCO QUIT 5 TO < 15 YRS [place] ([facility]) Jun 28, 2017 01:51 PM FORMER TOBACCO USER 7Y OR GREATE R [place] ([facility]) Jun 29, 2016 08:43 AM FORMER TOBACCO USE >1Y <7Y [place] ([facility]) Radiology Reports: +/- 30 days of [...] the Encounter. The data comes from all [place] treatment facilities. Date/Time Radiology Report Provider Source Sep 04, 2022 11:46 AM CHEST 2 VIEWS PA A ND LAT: [facility] KHOURY [id number] [id number] M Exm Date: SEP 04, 2022@11:46 Req Phys: ADRIENNE CROW Pat Loc: [facility] (Req'g Loc Img Loc: [facility] Service: Unknown (Case [id number] COMPLETE) CHEST 2 VIEWS PA AND LAT (RAD Detailed) CPT:76042 Reason for Study: ankle sweling, sob Clinical [...] 04, 2022 Date Verified: SEP 04, 2022 Director Writing E-Sig:/HI/GENE LORA MD Report: DATE/TIME REGISTERED: 09/04/2022 11:46 [...] Primary Interpreting Staff: GENE LORA MD, RADIOLOGIST (Director Writing) /EGNE RIVAS [facility] Encounter Notes: All associated encounter notes This section contains the clinical notes associated to the Encounter. Date/Time Encounter Note(s) Provider Source Aug 21, 2022 01:37 PM DIABETOLOGY NOTE: LOCAL TITLE: DIAGNOSTIC CGM INTERPRETATION STANDARD TITLE: DIABETOLOGY NOTE DATE OF NOTE: AUG 21, 2022@13:37 ENTRY DATE: AUG 21, 2022@13:37:23 AUTHOR: HELEN AYON COSIGNER: URGENCY: STATUS: COMPLETED Diagnostic Continuous Glucose Monitor (CGM) Interpretation Note Type of CGM: Madeline Pro Start date: Jul End date: Jul Average Blood Glucose (BG): 224 Coefficient of Variation: 27.4% Predicted A1c: 8.7% % BG > 250: 33 % BG 180-249: 39 % BG 70-180: 28 % BG 69-54: 0 % BG < 54: 0 Daily and composite blood glucoses reviewed, overall trends: 1. Glucose drops down into range overnight 2. Clear elevations at mealtimes 3. Post-prandial readings come down slightly but remain above goal Recommendations 1. Increase prandial coverage 2. Consider lower carb meal options if possible See Pharmacotherapy - Clinical Pharmacy Note from today's date for discuss with and insulin adjustments made /es/ HELEN AYON PHARMD, [facility] CLINICAL FUND DEVELOPMENT MANAGER Signed: 08/21/2022 13:41 HELEN AYON ([facility]) Aug 21, 2022 08:41 AM PHARMACY NOTE: LOCAL TITLE: PHARMACOTHERAPY-CLINICAL PHARMACY NOTE STANDARD TITLE: PHARMACY NOTE DATE OF NOTE: AUG 21, 2022@08:41 ENTRY DATE: AUG 21, 2022@08:41:51 AUTHOR: HELEN AYON EXP COSIGNER: URGENCY: STATUS: COMPLETED PHARMACOTHERAPY-CLINICAL PHARMACY NOTE Has ADDENDA Visit Type: In-Clinic [facility] KHOURY is a 77 YO followed by [facility] for diabetes medication management. Patient presents in-clinic today for diabetes follow-up and interpretation of diagnostic CGM. SUBJECTIVE: [place] shares he feels switch to aspart/glargine has been ok but that he needs a higher dose than what he's been getting. Lifestyle: denies changes, will be resuming golf in the spring ROS: (-) hypoglycemia symptoms (-) hyperglycemia symptoms SMBG Readings: Date AM Noon PM Notes 08/21 139 08/20 140 116 156 08/19 259 155 182 *Increased aspart to 10 units 08/18 161 160 205 08/17 106 196 283 08/16 201 190 183 08/15 151 188 288 08/14 154 239 245 08/13 171 223 281 08/12 170 214 176 08/11 153 317 210 08/10 151 250 08/09 167 193 236 08/08 185 222 282 08/07 124 207 192 AVG 162.1 201.5 226.4 MIN 106 116 156 MAX 259 317 288 Adherence to medications: denies missed doses OBJECTIVE: [...] 4) INSULIN,ASPART 100UN/ML RENATE FLEXPEN 3ML INJECT 6 ACTIVE UNITS UNDER THE SKIN EVERY MORNING AND INJECT 8 UNITS EVERYDAY AT NOON AND INJECT 8 UNITS EVERY EVENING FOR DIABETES Taking 10 units with meals 5) INSULIN,GLARGINE 100 UNT/ML 3ML SOLOSTAR INJECT 40 ACTIVE UNITS UNDER THE SKIN EVERY MORNING FOR DIABETES Confirmed 6) LOSARTAN 50MG TAB TAKE ONE TABLET BY MOUTH EVERY DAY ACTIVE 7) METFORMIN HCL 1000MG TAB TAKE ONE TABLET BY MOUTH TWO ACTIVE TIMES A DAY FOR DIABETES FOR DIABETES Active Non-VA Medications Status ======= 1) Non-VA ASPIRIN 81MG EC TAB 81MG MOUTH EVERY MORNING ACTIVE 2) Non-VA CYANOCOBALAMIN 1000MCG TAB 1000MCG MOUTH EVERY ACTIVE DAY 3) Non-VA CYCLOBENZAPRINE HCL 10MG TAB 10MG MOUTH THREE ACTIVE TIMES A DAY NEEDED 4) Non-VA HYDROCHLOROTHIAZIDE 25MG TAB 25MG MOUTH EVERY ACTIVE MORNING 11 Total Medications Height: 67.52 in [171.5 cm] (07/12/2022 09:42) Weight: 199.5 lb [90.49 kg] (08/07/2022 14:00) BMI: 30.8 LABS: Basic Metabolic Panel SODIUM 141 (07/12/22) POTASSIUM 3.6 (07/12/22) CREATININE 0.9 (07/12/22) UREA NITROGEN 20 (07/12/22) GLUCOSE 64 L (07/12/22) CO2 25 (07/12/22) CHLORIDE 104 (07/12/22) EGFR (03/01) 07/13/21 @ 1003 82 CREATININE EGFR (CKD-EPI) 07/12/22 @ 1101 89 MAGNESIUM 1.7 (07/12/22) Collection DT Specimen Test Name Result Units Ref Range 07/12/2022 11:01 PLASMA CREATININE 0.9 mg/dL 0.7 - 1.2 01/02/2022 13:53 PLASMA CREATININE 1.0 mg/dL 0.7 - 1.2 07/13/2021 10:03 PLASMA CREATININE 0.9 mg/dL 0.7 - 1.2 07/12/2022 11:01 PLASMA CREAT EGFR(CKD-EP 89 Ref: >=60 01/02/2022 13:53 PLASMA CREAT EGFR(CKD-EP 79 Ref: >=60 07/13/2021 10:03 PLASMA ESTIMATED GFR(eGF >60 Ref: >=60 03/01/2021 12:38 PLASMA ESTIMATED GFR(eGF >60 Ref: >=60 10/03/2020 12:48 PLASMA ESTIMATED GFR(eGF >60 Ref: >=60 Collection DT Spec HGBA1C 07/12/2022 11:02 BLOOD 9.1 H 07/12/2022 11:01 BLOOD 9.2 H 01/02/2022 13:53 BLOOD 9.5 H Collection DT Specimen Test [...] PPG <210) d/t comorbidities per [facility]/DoD guidelines [place] with most recent A1c and home BGs above goal. Since increasing aspart, BGs have come down to normal range. On CGM, BGs seen to go from ~28% in range to ~60-70% in range with change in aspart. Reasonable to continue with aspart 10 units with meals as this also gets him closer to 50/50 basal/bolus. Has follow- up with PCP in 2 weeks, instructed to bring glucometer with him for download. Should further insulin titrations be needed, would recommend adjustment in aspart. Possible he may qualify for personal CGM as he has not tolerated semaglutide and is on max tolerated doses of oral meds. However, would need to demonstrate variable BGs and difficulty to control on new insulin regimen. Will continue to monitor and consider repeat diagnostic CGM in spring when he resumes golfing. -Continue insulin aspart 10 units before meals -Continue insulin glargine 40 units daily #Disease-Specific Med Rec: Completed today #Labs: -A1c recheck in September 2022 - Educated vet on indication/risks/benefits of new/changed medication. - Education provided on therapeutic nonpharmacologic management to achieve goals. - Vet advised of recent labs. - [place] verbalized understanding to all plans discussed today. Questions were answered to vet's satisfaction. Time spent: 30 minutes RTC: September 19 @ 1030 in-clinic *Prefers in-clinic appts /hi/ HELEN AYON, PHARMD, [facility] CLINICAL FUND DEVELOPMENT MANAGER Signed: 08/21/2022 13:27 09/10/2022 ADDENDUM STATUS: COMPLETED Alerting [facility] pharm to 09/04/22 lab results: Test name Result units Ref. range Site Code KSENIA-65 ANTIBODY >250 H IU/mL Ref: SEE BELOW [76536] C-PEPTIDE <0.10 L ng/mL 0.80 - 3.85 [16385] Test name Result units Ref. range Site Code GLUCOSE 130 H mg/dL 70 - 100 [618] /es/ TIM BOYKIN PHARMD, BCPS, BCACP [id number] Signed: 09/10/2022 08:06 Receipt Acknowledged By: * AWAITING SIGNATURE * HELEN AYON,HELEN BATES ([facility])
--- OUTSIDE RECORDS SUMMARY | 2023-08-14 09:41 | XMS_ITS | Encounter Summary ---
Author Name Unknown Organization [facility] Address [address] [place] [address] Care Team Providers Care Shoe Stock Associate Name Role Phone None Reported, Pcp Primary Care Provider Unavail able Reason for Visit * Reason Comments Chest Pain * Auth/Cert (Routine) Specialty Diagnoses / Procedures Referred By Nadiya t Referred To Contact Diagnoses ST Elevation Myocardial Infarction Of Unspecified Site (HCC) ST Elevation Myocardial Infarction Involving Left Circumflex Coronary Artery (HCC) Procedures DE INIT HOSP IP/OBS SF/LOW Referral ID Status Reason Start Date Expiration Date Visits Re quested Visits Authorized [id number] 1 1 Encounter Details Date Type Department Care Team (Late st Contact Info) Description 09/25/2022 9:10 AM LIBRARY MONITOR - 09/25/2022 10:[address] [facility] Surgery Division of Cardiovascular Diseases in [place], [place] [address] [place] [address] Mike Garcia M.D., Ph.D. [address] [place] [address] CORONARY ATHERECTOMY Social History Tobacco Use Types Packs/Day Years [...] on file documented as of this encounter Last Filed Vital Signs Vital Sign Reading Time Taken Comments Blood Pressure 131/78 09/25/2022 10:40 AM LIBRARY MONITOR Pulse 71 09/25/2022 10:40 AM LIBRARY MONITOR Temperature 37 ??C (98.6 ??F) 09/25/2022 7:30 AM LIBRARY MONITOR Respiratory Rate 0 09/25/2022 10:15 AM LIBRARY MONITOR Oxygen Saturation 95% 09/25/2022 10:40 AM LIBRARY MONITOR Inhaled Oxygen Concentration - - Weight 88.5 kg (195 lb 1.7 oz) 09/25/2022 8:06 A M LIBRARY MONITOR Height 172 cm (5' 7.72) 09/22/2022 10:15 AM LIBRARY MONITOR Body Mass Index 29.73 09/22/2022 10:15 AM LIBRARY MONITOR documented in this encounter Discharge Summaries * Walt Campbell P.A.-C., M.S. - 09/26/2022 1:27 PM CST CARDIOLOGY HOSPITAL DISCHARGE SUMMARY DATE OF ADMISSION: 09/22/2022 DATE OF DISCHARGE: 09/26/2022 Discharge Provider: Judy House M.B.B.S., Ph.D. 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 (09/25/2022-09/24/2023) - Please assess right femoral procedural access site for signs of healing/infection - Atorvastatin increased to 80 mg daily, please obtain lipid panel in 2-3 months with a goal LDL < 70 - Uptitrate losartan as bp and kidney function allows, uptitrate metoprolol as HR allows. After uptitration please add SGLT2 inhibitor and consider spironolactone. - Assess volume status and uptitrate or down titrate Lasix as appropriate FOLLOW-UP APPOINTMENTS: Scheduled Appointments 12/19/2022 2:00 PM RST INTAKE VISIT POD A 01 Admitting/Central Scheduling 12/20/2022 10:10 AM ECHO (16) [id number] Cardiovascular Disease 12/20/2022 1:00 PM [facility] Cardiovascular Disease For appointment details refer to your Patient Appointment Guide. HOSPITAL COURSE: Admission Weight: 90.7 kg Dismissal Weight: 88 kg BMI: Body mass index is 29.73 kg/m??. Mr. Julius Ramos is a 77 y.o. male who presented to [facility] Emergency Department on 09/22/2022 with chest pain. He has medical comorbidities including but not limited to coronary artery disease, diabetes mellitus type 2, hypertension, and hyperlipidemia. He was in his usual state of health until he was awakened from sleep on 09/22 with substernal chestpain, shortness of breath, diaphoresis, and lightheadedness. Upon arrival to the emergency department, he was hypertensive but otherwise hemodynamically stable. ECG on presentation showed a posterolat eral STEMI. He was loaded with ASA 325 (patient took x 2 at home) and clopidogrel 600 mg and started on heparin gtt. He was taken for coronary angiography which showed a thrombotic occlusion of the left circumflex artery and severe stenosis of the right coronary artery. He underwent TAMMIE x 1 to left circumflex. The right coronary artery was wired however PCI was unsuccessful due to inability to deliver equipment past the heavily calcified stenosis. He was admitted to the cardiac intensive care unit due to ongoing chest pain following angiogram. Post-intervention, he was hemodynamically stable and without signs of acute heart failure. Nitroglycerin infusion initiated for ongoing chest pain was quickly weaned. Dual antiplatelet therapy with aspirin 81 mg and clopidogrel 75 mg were continued.TTE demonstrated LVEF 40% with posteriolateral wall motion abnormalities and grade 1/3 diastolic dysfunction. He was initiated on guideline directed medical therapy with metoprolol tartrate, which was transitioned to metoprolol succinate prior to dismissal. Home losartan was continued. His atorvastatin was increased to 80 mg daily; he should have a follow up lipid panel in 2-3 months with a goal LDL < 70. He transferred to the PCU on 09/23. He was noted to be mildly volume overloaded and was gently diuresed with oral and intravenous furosemide. DCS was consulted for assistance in managing his poorly controlled diabetes. Hemoglobin A1c was 10.1% on admission. They recommended increased insulin regimen. He proceeded for staged PCI with rotational arthrectomy of mid-RCA lesion on 09/25/22 with successful placement of a drug-eluting stent. Patient will continue DAPT with aspirin 81 mg indefinitely and clopidogrel 75 mg daily for 12 months. From a medication standpoint, his losartan should be uptitrated as kidney function and blood pressure allows. Metoprolol should be uptitrated as heart rate allows. SGOT 2 inhibitor should be added as soon as feasible, and consider spironolactone after that. Would recommend repeat check of ejection fraction in 3 months following optimization of his medical regimen. He will have follow-up with Cardiology to reassess in 3 months. Patient was noted to have some element of volume overload with increased lower extremity edema as well as increased respiratory rate, he was not requiring oxygen. He was given some IV diuresis duringhospitalization. Transferred to 40 mg of oral Lasix, it is possible that this dose will need to be reduced or uptitrated pending his volume status. The importance of cardiac rehab was discussed and cardiac rehab referral was sent. The importance of medication adherence was discussed. Patient discharged home in stable condition on 09/26/2022. TEST RESULTS PENDING AT DISCHARGE: Pending Labs None DISCHARGE DISPOSITION: Home or Self Care [1] CONDITION ON DISCHARGE: Stable. DIET AT DISCHARGE: Return to previous diet PRIMARY PROVIDER: No care logistics team lead to display Primary Care Providers: None Reported, Pcp (General) No address on file Primary Care Provider Phone Number: None Primary Care Provider Fax Number: None ARY MONITOR * Daisy Moore APRN, C.N.P. - 09/23/2022 4:20 PM CST RST CARD 4 CARDIOLOGY INPATIENT PROGRESS NOTE TRANSFER ACCEPTANCE NOTE CHIEF COMPLAINT/REASON FOR ADMISSION Chest pain SUBJECTIVE This is a transfer acceptance note. Mr. Ramos arrived to the floor and is in is in stable condition. Code status was reviewed and he wishes to remain full. Prior to admission medications were reviewed and up to date. For further details, please refer to the transfer note from Dr. Thompson dated from today. OBJECTIVE Telemetry Sinus rhythm heart rate 60-80 Occasional PVCs in isolation, pairs and triplets Intake/Output Past 24 hours: Intake/Output Summary (Last 24 hours) at 09/23/2022 1620 Last data filed at 09/23/2022 1500 Gross per 24 hour Intake 1672 ml Output 1380 ml Net 292 ml PHYSICAL EXAMINATION VITAL SIGNS: Temperature: [36.5 ??C-37.1 ??C] 36.6 ??C Heart Rate: [62-89] 79 Resp Rate: [4-34] 30 Blood Pressure: (101-133)/(38-91) 120/72 SpO2: [90 %-95 %] 94 % Flow Rate (L/min): [0 L/min] 0 L/min Weight: [91 kg] 91 kg BMI (Calculated): [30.8 kg/m??] 30.8 kg/m?? Pulse Rate: [59-89] 75 General: Alert and oriented, in no apparent distress. Heart: Regular rate and rhythm. 2/6 systolic ejection murmur USB. JVP approximately 3 cm above clavicle while at 90 ?? Lungs: Diminished bilaterally in bases otherwise clear, on room air Abdomen: Soft, non-distended, non-tender to palpation throughout. Positive bowel sounds. Extremities: 1+ peripheral edema in feet and lower legs, positive peripheral pulses. DIAGNOSTICS Please see the electronic record for lab data. 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 Ramos is a 77-year-old male who presented to the emergency room with chest pain. He was found to have ST segment elevation in his posterior lateral leads. He was loaded with aspirin and clopidogrel and started on a heparin infusion. Comorbid conditions include type 2 diabetes mellitus, hypertension, hyperlipidemia. Mr. Ramos proceeded directly to the pit laborer which showed thrombotic occlusion of the left circumflex artery and severe stenosis of the RCA. He underwent drug- eluting stent placement to the circumflex. The right coronary artery was found to have a heavily calcified stenosis and PCI was unsuccessful. Postprocedure he was admitted to the CICU. Plans are for staged procedure on 09/25 consisting of atherectomy of the RCA calcified lesion. Transthoracic echocardiogram was obtained and showed reduced ejection fraction of 40% with posterior lateral regional wall motion abnormalities. In addition there was 1/3 LV diastolic dysfunction, RVwas normal in size and systolic function. Aortic valve was noted to be calcified with a mean Doppler gradient of 7 mm HG. Guideline directed medical therapy was optimized. Metoprolol tartrate twice daily was added hand losartan continued. Mr. Ramos was transferred to the Cardiology 4 service on 09/23. Upon arrival he appeared [id number] volume overloaded with lower extremity edema and slight elevation in JVD. Oral Lasix was given x1. Plan: --continue aspirin 81 mg daily indefinitely. Plavix 75 mg daily for 1 year post PCI --optimize medications for coronary artery disease including increasing high- intensity atorvastatinto 80 mg daily. -continue to optimize GDM Continue metoprolol 12.5 mg twice daily and losartan 25 mg daily. Consider adding spironolactone prior to dismissal. -appreciate assistance from the diabetic consult Service with managing diabetes -Lasix 20 mg x 1 this evening. Closely monitor for signs of volume overload and repeat diuretic therapy as needed -cardiac rehab has been consulted -will be NPO Saturday night for planned cardiac catheterization with atherectomy of the RCA. HEART FAILURE MEDICAL THERAPY: Left ventricular systolic and diastolic, EF 40% CRISS/ARB/ARNi: Losartan 25 mg daily Beta-america: Metoprolol 12.5 mg twice daily Aldosterone antagonist: Consider spironolactone prior to discharge SGLT2 inhibitor: Discuss with Diabetes consult Service Diuretic: To be determined VTE: Heparin 5000 units subQ q.8 hours, stop 09/24 evening prior to angio on 09/25 GI: not indicated Code Status: Full Code Disposition: Home - self care ARY MONITOR * Caron Thompson M.D. - 09/23/2022 9:24 AM CST CICU Transfer Note Reason for admission: Posterolateral STEMI status post PCI of left circumflex, plan for staged PCI of mid-RCA lesion on 09/25/22 ICU length of stay 1d Medical comorbidities: Diabetes mellitus type 2, hypertension, hyperlipidemia Mr. Ramos was admitted 09/22/[address]-elevation myocardial infarction. He was in his usual state of health until he was awakened from sleep with substernal chest pain, shortness of breath, diaphoresis, and lightheadedness. Upon arrival to the emergency department, he was hypertensive but otherwise hemodynamically stable. ECG on presentation showed a posterolateral STEMI. He was loaded with ASA 325 (patient took x 2 at home) and clopidogrel 600 mg and started on heparin gtt. He was taken for coronary angiography which showed a thrombotic occlusion of the left circumflex artery and severe stenosis of the right coronary artery. He underwent TAMMIE x 1 to left circumflex. The right chin ry artery was wired however PCI was unsuccessful due to inability to deliver equipment past the heavily calcified stenosis. There is now a plan for staged PCI of mid-RCA lesion on 09/25/22. He was admitted to the cardiac intensive care unit for further evaluation. Upon arrival to the CICU, he was asymptomatic, hemodynamically stable, and without signs of acute heart failure. He underwent echocardiogram (09/22/22), which showed LVEF 40% with posteriolateral wallmotion abnormalities and mild diastolic dysfunction. We began to introduce guideline directed medical therapy, presently at Metoprolol tartrate 12.5 mg daily and losartan 25 mg daily; this will continue to be uptitrated as tolerated. He remains on ASA 81 mg indefinitely and Clopidogrel 75 mg daily for 12 months post-PCI. His atorvastatin was increased to 40 mg daily; he should have a follow up lipid panel in 2-3 months with a goal LDL < 70. His diabetes was uncontrolled on admission with a hemoglobin A1c of 10.1%. Diabetes consulting service is following and making adjustments as indicated. He is now stable for transfer to the floor. He has been without any recurrent chest discomfort. Vital signs with HR 60s-80s bpm, BP 100s-110s/50s-60s mmHg, saturating well on room air. He has been eating a regular diet. He has been up to chair. Items for consideration of oncoming team: Appreciate continued care of patient There is now a plan for staged PCI of mid-RCA lesion on 09/25/22 - not yet ordered Continue DAPT Recommend uptitration of GDMT including initiation of spironolactone prior to dismissal DCS following for adjustment of insulin regimen Please page CICU service with any questions. ARY MONITOR documented in this encounter Discharge Instructions * Discharge Instructions* Easton Nielson - 09/26/2022 9:50 AM LIBRARY MONITOR BLOOD GLUCOSE MANAGEMENT: Monitor blood glucose four times daily before meals and at bedtime. Blood glucose goal is 100-140 mg/dL. Most recent A1c on record: Lab Results Component Value Date HGBA1C 10.1 (H) 09/23/2022 Follow-up with primary care provider within 7-10 days of discharge or earlier if blood glucose values are consistently out of goal range. Call in [facility]: Please call [place] [facility] at (pager [phone]) from 7:30 AM to 9:00 AM for assistance with adjusting your insulin doses. Please callafter checking your blood sugar, before taking your insulin, and before eating. Note that this is atemporary arrangement and patients should be following up with their local provider within 1 week of hospital dismissal for continued diabetes care. As Diabetes and Nutritional Education is important to your diabetes management, yearly follow up with a local Assistant Store Leader and Dietitian is recommended. Please check with your insurance company as diabetes education visits are commonly covered. Your primary care provider can provide referrals for education. You were discharged from the RST CARD 4 Service. Please identify this service name if you call withquestions after hospitalization. ARY MONITOR * Attachments The following attachments cannot be sent through Care Everywhere. * Clopidogrel (By mouth) (Bulgarian) * Furosemide (By mouth) (Bulgarian) * Metoprolol (By mouth) (Bulgarian) * Nitroglycerin, Rapid Release (By mouth) (Bulgarian) documented in this encounter Medications at Time of Discharge Medication Sig Dispensed Refills Start Date End Date aspirin 81 mg chewable tablet 0 07/05/2016 atorvastatin (LIPITOR) 80 mg tablet Take 1 tablet (80 mg total) by mouth daily. 90 tablet 3 09/26/2022 clopidogreL (PLAVIX) 75 mg tablet Take 1 tablet (75 mg total) by mouth daily. Stop date 09/25/2023 30 tablet 11 09/26/2022 cyanocobalamin (VITAMIN B12) 1,000 mcg tablet Take 1,000 mcg by mouth. 0 10/07/2021 furosemide (LASIX) 40 mg tablet Take 1 tablet (40 mg total) by mouth daily. 30 tablet 11 09/27/2022 insulin aspart U-100 (NovoLOG FlexPen) 100 unit/mL (3 mL) injection Inject 14 Units under the skin 3 (three) times a day with meals. 0 insulin glargine (LANTUS) 100 unit/mL injection Inject 50 Units under the skin every morning. Dose may need further adjustment 15 mL 0 09/26/2022 losartan (COZAAR) 50 mg tablet Take 50 mg by mouth daily. taking 0 metFORMIN (GLUCOPHAGE) 1,000 mg tablet Take 1,000 mg by mouth daily with breakfast. Per pt meds -- 0 metoprolol succinate (TOPROL-XL) 50 mg 24 hr tablet Take 1 tablet (50 mg total) by mouth daily. Do not crush or chew. 30 tablet 11 09/26/2022 oxyCODONE-acetaminophe n (PERCOCET) 5-325 mg per tablet Take 1 tablet by mouth every 6 (six) hours as needed. 0 11/02/2008 nitroglycerin (NITROSTAT) 0.[address] 1 tablet (0.4 mg total) under the tongue every 5 (five) minutes as needed for chest pain. May repeat every 5 minutes for up to 3 doses 25 tablet 11 09/26/2022 furosemide (LASIX) 40 mg tablet Take 1 tablet (40 mg total) by mouth daily. 30 tablet 11 09/26/2022 09/27/2022 documented as of this encounter Progress Notes * Abdias Edgar, R.N. - 09/26/2022 11:59 AM CST Ed visit with pt for diabetes overview and diabetes program review. Pt to DC on his preadmission MDI insulin program with dose adjustments as per DCS recs. Pt states he just recently started using Lantus and Novolog. He [facility] Reviewed Type 2 diabetes. Reviewed Lantus and Novolog as they pertain to an MDI. Discussed insulin administration via insulin pens including injection site rotation. Discussed use of a glucometer. Pt states he is comfortable with using his glucometer. Reviewed parameters and testing frequency. Discussed Hypoglycemia. Discussed diet and carb impact on diabetes. Inpatient Diabetes Education complete; please re- consult Diabetes Education if further educational needs arise. ARY MONITOR * Torres Morin M.D. - 09/25/2022 2:36 PM CST I have discussed the care of Julius Ramos with Denny Mena and agree with the documentation dated 09/25/22. Please see his note for full details. Briefly, the patient is a 77 yo M w/ HTN, HLD, T2DM (A1c 10.1) who presented with a lateral STEMI s/p TAMMIE to [facility] Garcia. TTE from 09/22 shows LVEF 40%, normal RV, grade 1/3 diastolic dysfunction. Plan for Today: Continue DAPT, atorvastatin, losartan, metoprolol Consider MRA and SGLT2i for HFrEF Patient's case was staffed with Dr. House. Torres Morin MD Cardiovascular Medicine Fellow, PGY-4 ARY MONITOR * Afshan Otero, JORGE, C.N.P., D.N.P. - 09/25/2022 10:14 AM LIBRARY MONITOR SUBJECTIVE LOS: 3 days DCS continues to follow this 77 y.o. male for diabetes admitted on 09/22/[address] Elevation Myocardial Infarction Involving Left Circumflex Coronary Artery (HCC) PREADMISSION THERAPY: Metformin 1,000 mg daily in the AM Lantus 44 units in the AM, NovoLog 14 units w/meals (since July, previously on NPH) Patient is in no acute distress. Resting in bed. Reviewed hospital insulin regimen. OBJECTIVE Blood glucose results in last 24 hours: Recent Labs 09/25/22 0731 09/25/22 0640 09/24/22 2121 09/24/22 1640 09/24/22 1136 GLUCOSEPOC 268 H -- 144 H 203 H 286 H GLUCOSE -- 251 H -- -- -- Yesterday, given: Lantus 50 units in the morning, NovoLog 1 unit for every 8 grams of carbohydrates consumed with meals (10-8-3 units with respective meals), and NovoLog 21 units total for the correction of hyperglycemia. Steroids: None Current Diet No oral nutrition, no tube feeding starting at 09/25 0000 VITALS Temperature: 37 ??C Heart Rate: 70 Resp Rate: 24 Blood Pressure: 139/63 BP Location: Left arm;Upper SpO2: 93 % BMI (Calculated): 29.9 kg/m?? Height: 172 cm Weight: 88.5 kg Body mass index is 29.91 kg/m??. LABORATORY Lab Results Component Value Date CREATININE 0.80 09/25/2022 Estimated Creatinine Clearance: 99.9 mL/min (by C-G formula based on SCr of 0.8 mg/dL). ASSESSMENT / PLAN #1 Type 2 Diabetes, uncontrolled with hyperglycemia with HbA1c 10.1% #2 STEMI s/p Coronary Angio w/stent INPATIENT PLAN: - Blood glucose monitoring: four times daily - Glucose goal: 140-180 mg/dL - Basal: Lantus 50 units in the morning. - Mealtime: NovoLog 1 unit for every 6 grams of carbohydrates consumed with meals. Increased due tohyperglycemia. - Correction scale: NovoLog individualized correction scale three times a day (140-179=3 units; 180-219= 6 units; 220-259= 9 units; 260-299= 12 units; 300- 339= 15 units; 340-379= 18 units; 380-399= 21 units) - DCS will evaluate and adjust insulin doses as indicated to achieve glycemic goal. ANTICIPATED DISMISSAL PLAN: Preadmission regimen with dose adjustment. Will continue to assess. Blood glucose frequency: four times daily Goal: 100-140 mg/dL Please page DCS within 24 hours prior to hospital dismissal for final dismissal recommendations. Discussed above plan with the patient. Patient is alert and oriented and in agreement with the plan. DCS pager [phone] will continue to follow. Call primary service for diabetes concerns between [phone]. Primary service to contact medical information specialist Endo fellow via hospital shovel loader operator for questions. ARY MONITOR * Kaleigh Chopra PharmKathleen, R.Ph. - 09/25/2022 8:19 AM CST Pharmacist Progress Note Reason for admission: STEMI->thrombotic occlusion L Cx and severe stenosis RCA-> PTCA/TAMMIE L Cx PMH: DM OBJECTIVE CV: CAD-ASA 81 mg Clopidogrel 75 mg Metoprolol 25 mg bid, losartan 25 mg Atorvastatin 40 mg Neph: Serum creatinine: 0.8 mg/dL 09/25/22 0640 Estimated creatinine clearance: 99.9 mL/min Endo: CSI ASP 10 TIDM GLA 50 PPX: SQ Heparin Medication Reconciliation: Held: metformin, hydrochlorothiazide 25 mg Changed: atorvastatin 20 mg -> 80 mg (noted post W[place] LDL 54 non HDL 71) ; losartan 50 mg->25 mg New: metoprolol, clopidogrel ASSESSMENT / PLAN STEMI- Plan atherectomy for stenotic RCA on 09/25 (unable to pass heavily calcified stenosis) , resumed home statin (increased dose), potential addition of spironolactone prior to discharge and conversion of Metop IR > XL Kaleigh Chopra Pharm.D., R.Ph. ARY MONITOR * Denny Mena P.A.-C. - 09/25/2022 7:20 AM CST RST CARD 4 CARDIOLOGY INPATIENT PROGRESS NOTE SUBJECTIVE Mr. Ramos was seen and examined on morning rounds. Patient reports he is feeling well this morningand denies having any chest pain or difficulty breathing. Discussed plan for coronary atherectomy today. OBJECTIVE TELEMETRY Sinus rhythm with rates in the 60s. No significant overnight alarms. INTAKE/OUTPUT Past 24 hours: Intake/Output Summary (Last 24 hours) at 09/25/2022 0720 Last data filed at 09/25/2022 0400 Gross per 24 hour Intake 1300 ml Output 2050 ml Net -750 ml Net Hospitalization: -780 mls Admission Weight: 90.7 kg Today's weight: 90.5 kg Weight change since admit: -0.2 kg Body mass index is 30.59 kg/m??. VITAL SIGNS Temperature: [36.5 ??C-37.2 ??C] 37.2 ??C Heart Rate: [65-97] 68 Resp Rate: [12-39] 30 Blood Pressure: (111-147)/(56-78) 147/72 SpO2: [92 %-98 %] 94 % Pulse Rate: [69-89] 71 PHYSICAL EXAMINATION General: Alert and oriented, resting comfortably in chair. Responding to questions appropriately. Heart: Regular rate and rhythm. Grade 2/6 systolic murmur appreciated along sternal border. JVP does not appear to be elevated with patient sitting upright in chair. Lungs: Faint crackles appreciated at the bases bilaterally. On room air. Abdomen: Soft, nondistended, nontender to palpation throughout. Extremities: Strong peripheral pulses, +1 bilateral lower extremity pitting edema. Skin: Warm and dry. DIAGNOSTICS I personally reviewed all radiology and labs from the past 24 hrs. 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 Ramos is a 77-year-old male who presented to the emergency room with chest pain. He was found to have ST segment elevation in his posterior lateral leads. He proceeded directly to the pit laborer where he underwent drug-eluting stent placement to the left circumflex. The right coronary artery wasfound to have a heavily calcified severe stenosis and PCI was unsuccessful. He was admitted to the CICU postprocedurally. Transthoracic echocardiogram was obtained on 09/22/2022 which demonstrated reduced ejection fraction of 40% with posterior lateral regional wall motion abnormalities. Guideline directed medical therapy was optimized with the addition of metoprolol tartrate, and losartan was continued. Metoprolol tartrate was increased to 25 mg b.i.d. yesterday. Will plan to transition metoprolol tartrate to metoprolol succinate and consider adding spironolactone prior to discharge. He was diuresed with oral furosemide due to signs of volume overload upon arrival to the PCU. He was diuresed with 40 mg IV furosemide yesterday. His weight is down to 88.5 kg today (90.5 kg yesterday). Will hold off on any further diuresis today prior to procedure. His creatinine has remained stable at 0.80. Patient is NPO this morning for staged atherectomy of RCA calcified lesion today with Dr. Garcia. He was aspirin and Plavix loaded on 09/22/2022 prior to PCI, and has been continued on aspirin 81 mg daily and clopidogrel 75 mg daily. PLAN: NPO for coronary atherectomy of mid-RCA lesion today Continue cardiac medications including aspirin 81 mg daily, atorvastatin 80 mg daily, clopidogrel 75 mg daily, losartan 25 mg daily, metoprolol tartrate 25 mg b.i.d. Plan to transition metoprolol tartrate to metoprolol succinate prior to discharge Consider addition of spironolactone prior to discharge Cardiac rehab DCS for management of poorly controlled type 2 diabetes Assess need for further diuresis following procedure VTE: anti-coagulation held due to plan procedure Gi: not indicated Tubes/lines: PIV Telemetry Indication: Severe CAD Code Status: Full Code Disposition: Home - self care Denny Mena P.A.-C. 09/25/22 RST CARD 4 I personally spent a total 35 minutes providing and coordinating care today. ARY MONITOR * Denny Mena P.A.-C. - 09/24/2022 7:24 AM CST RST CARD 4 CARDIOLOGY INPATIENT PROGRESS NOTE SUBJECTIVE Mr. Ramos was seen and examined on morning rounds. Patient reports he slept well overnight denies having any pain or difficulty breathing. OBJECTIVE TELEMETRY Normal sinus rhythm with rates in the 70s-80s. No significant overnight alarms. INTAKE/OUTPUT Past 24 hours: Intake/Output Summary (Last 24 hours) at 09/24/2022 0724 Last data filed at 09/24/2022 0000 Gross per 24 hour Intake 1592 ml Output 1330 ml Net 262 ml Net Hospitalization: -388 mls Admission Weight: 90.7 kg Today's weight: 91 kg Weight change since admit: +0.3 kg Body mass index is 30.76 kg/m??. VITAL SIGNS Temperature: [36.5 ??C-37.3 ??C] 36.8 ??C Heart Rate: [63-93] 85 Resp Rate: [15-34] 27 Blood Pressure: (109-126)/(63-91) 114/67 SpO2: [91 %-95 %] 95 % Flow Rate (L/min): [0 L/min] 0 L/min Weight: [91 kg] 91 kg BMI (Calculated): [30.8 kg/m??] 30.8 kg/m?? Pulse Rate: [63-95] 74 PHYSICAL EXAMINATION General: Alert and oriented, resting comfortably in chair. Responding to questions appropriately. Heart: Regular rate and rhythm. Grade 2/6 systolic murmur appreciated along the upper sternal border. JVP does not appear to be elevated with patient sitting upright in chair. Lungs: Faint crackles appreciated at the bases bilaterally. On room air. Abdomen: Soft, nondistended, nontender to palpation throughout. Extremities: Strong peripheral pulses, +1 bilateral lower extremity pitting edema. Skin: Warm and dry. DIAGNOSTICS I personally reviewed all radiology and labs from the past 24 hrs. 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 Ramos is a 77-year-old male who presented to the emergency room with chest pain. He was found to have ST segment elevation in his posterior lateral leads. He proceeded directly to the pit laborer where he underwent drug-eluting stent placement to the left circumflex. The right coronary artery wasfound to have a heavily calcified severe stenosis and PCI was unsuccessful. He was admitted to the CICU postprocedurally. Plan is for a staged procedure tomorrow consisting of atherectomy of the RCA calcified lesion. Transthoracic echocardiogram was obtained on 09/22/2022 which demonstrated reduced ejection fraction of 40% with posterior lateral regional wall motion abnormalities. Guideline directed medical therapy was optimized with the addition of metoprolol tartrate, and losartan was continued. Will increase metoprolol tartrate to 25 mg b.i.d. today. Will plan to transition metoprolol tartrate to metoprolol succinate and consider adding spironolactone prior to discharge. He was given oral furosemide due to signs of volume overload upon arrival to the PCU yesterday. He continues to show evidence of volume overload on exam this morning, will diurese with IV furosemide 40 mg today. His weight was 89.5 kg on admission, his weight was 90.5 kg today. His creatinine has remained stable at 0.79. Patient will be made NPO at midnight for staged atherectomy of RCA calcified lesion tomorrow with Dr. Garcia. He was aspirin and Plavix loaded on 09/22/2022 prior to PCI, and has been continued on aspirin 81 mg daily and clopidogrel 75 mg daily. PLAN: Continue diuresis with IV furosemide 40 mg NPO at midnight for staged PCI of mid-RCA lesion tomorrow Continue cardiac medications including aspirin 81 mg daily, atorvastatin 80 mg daily, clopidogrel 75 mg daily, losartan 25 mg daily, metoprolol tartrate Increase metoprolol tartrate to 25 mg b.i.d. Plan to transition metoprolol tartrate to metoprolol succinate prior to discharge DCS for management of poorly controlled type 2 diabetes Cardiac rehab Replace potassium Consider addition of spironolactone prior to discharge VTE: Heparin SQ 5,000 units TID Gi: not indicated Tubes/lines: PIV Telemetry Indication: Severe CAD Code Status: Full Code Disposition: Home - self care Denny Mena P.A.-C. 09/24/22 RST CARD 4 I personally spent a total 35 minutes providing and coordinating care today. ARY MONITOR * Jenny Tobias APRN, C.N.P. - 09/23/2022 4:55 PM CST SUBJECTIVE LOS: 1 day DCS continues to follow this 77 y.o. male for diabetes admitted on 09/22/2022 Posterolateral STEMI status post PCI of left circumflex, plan for staged PCI of mid-RCA lesion on 09/25/22 DIABETES HISTORY History of diabetes mellitus, type 2. Diagnosed 1998. PREADMISSION THERAPY Metformin 1000mg po daily in the AM Lantus 44 units in the AM, Novolog 14 units w/meals. (since July, previously on NPH) HOSPITAL: Patient is in no acute distress. Sitting in their chair. Reviewed hyperglycemia and plans to increase insulin doses today. See plans below. OBJECTIVE Blood glucose results in last 24 hours: Recent Labs 09/23/22 1127 09/23/22 0735 09/23/22 0308 09/23/22 0306 09/22/22 2115 09/22/22 1704 GLUCOSEPOC 325 H 214 H 223 H -- 259 H 205 H GLUCOSE -- -- -- 220 H -- -- Yesterday, given: Lantus 44 units in the evening; Novolog 6 units w/chau meal, plus 12 units of Novolog for correction. Steroids: none Current Diet Adult Diet Regular; 75 gm Carbs (per meal); Cardiovascular starting at 09/23 1037 VITALS Temperature: 36.6 ??C Heart Rate: 79 Resp Rate: 30 Blood Pressure: 120/72 BP Location: Left arm;Upper SpO2: 94 % Flow Rate (L/min): 0 L/min BMI (Calculated): 30.8 kg/m?? Height: 172 cm Weight: 91 kg Body mass index is 30.76 kg/m??. LABORATORY Lab Results Component Value Date CREATININE 0.69 (L) 09/23/2022 Estimated Creatinine Clearance: 100.7 mL/min (A) (by C-G formula based on SCr of 0.69 mg/dL (L)). ASSESSMENT / PLAN #1 Type 2 Diabetes, Uncontrolled recently with hyperglycemia per self reported home blood glucoses,HbA1c returned from 09/23 at 10.1% #2 s/p STEMI s/p Coronary Angio w/stent today INPATIENT PLAN: - Blood glucose monitoring: four times daily - Glucose goal: 140-180 mg/dL - Basal: increased to Lantus 50 units in the morning. - Mealtime: Increased to 10 units w/meals - Correction scale: NovoLog individual (3,6,9,etc) correction scale three times a day - DCS will evaluate and adjust insulin doses as indicated to achieve glycemic goal. - Consults: Diabetes Educators - Hold oral diabetes medications ANTICIPATED DISMISSAL PLAN: PENDING. Preadmission regimen with dose adjustment. Will continue to assess. Blood glucose frequency: three times daily Goal: 100-140 mg/dL Please page DCS within 24 hours prior to hospital dismissal for final dismissal recommendations. Discussed above plan with the patient and patient's family. Patient is alert and oriented and in agreement with the plan. DCS pager [phone] will follow. Call primary service for diabetes concerns between [phone]. Primary service to contact medical information specialist Endo fellow via hospital shovel loader operator for questions a hospital shovel loader operator for questions. ADDENDUM: 1700 Patient transferred out of ICU. Will start Novolog via Insulin to CHO for meals, starting with 1 unit per 8GMs. All other plan as above. ARY MONITOR * Nelson Easton, Pharm.D., R.Ph. - 09/23/2022 2:17 PM CST Images from the original note were not included. Admission Medication History Note Adherence issues: Unable to assess Medication list source: Pharmacy or dispense records Medication related information: - Prior to Admission Medications Med List Status: Pharmacy Complete Set By: Nelson Easton, Pharm.D., R.Ph. at 09/23/2022 2:12 PM Taking? Last Dose Informant Start Date End Date LT aspirin 81 mg chewable tablet 09/22/2022 at 0300 -- 07/05/16 -- atorvastatin (LIPITOR) 40 mg tablet -- -- -- -- Take 40 mg by mouth daily. cyanocobalamin (VITAMIN B12) 1,000 mcg tablet 09/21/2022 -- 10/07/21 -- Take 1,000 mcg by mouth. hydroCHLOROthiazide (HYDRODIURIL) 25 mg tablet 09/21/2022 -- 10/06/21 -- Take 25 mg by mouth. insulin aspart U-100 (NovoLOG FlexPen) 100 unit/mL (3 mL) injection 09/21/2022 -- -- -- Inject 14 Units under the skin 3 (three) times a day with meals. insulin glargine (LANTUS) 100 unit/mL injection Past Week -- -- -- Inject 44 Units under the skin at bedtime. losartan (COZAAR) 50 mg tablet 09/21/2022 -- -- -- Take 50 mg by mouth daily. taking metFORMIN (GLUCOPHAGE) 1,000 mg tablet 09/21/2022 -- -- -- Take 1,000 mg by mouth daily with breakfast. Per pt meds -- oxyCODONE-acetaminophen (PERCOCET) 5-325 mg per tablet 09/21/2022 -- 11/02/08 -- Take 1 tablet by mouth every 6 (six) hours as needed. ARY MONITOR * Caron Thompson M.D. - 09/23/2022 7:56 AM CST Images from the original note were not included. RST CCM CVD CICU Progress Note BRIEF SUMMARY Reason for admission: Posterolateral STEMI status post PCI of left circumflex, plan for staged PCI of mid-RCA lesion on 09/25/22 ICU length of stay 1d Medical comorbidities: Diabetes mellitus type 2, hypertension, hyperlipidemia INTERVAL EVENTS Remains without recurrent ischemic symptoms Hemodynamically stable; tolerating uptitration of GDMT Saturating well on room air OBJECTIVE VITAL SIGNS Temperature: [36.8 ??C-37.1 ??C] 37.1 ??C Heart Rate: [57-87] 65 Resp Rate: [4-34] 26 Blood Pressure: (92-145)/(38-88) 101/38 SpO2: [85 %-98 %] 92 % Flow Rate (L/min): [2 L/min] 2 L/min Height: [172 cm] 172 cm Weight: [89.5 kg-91 kg] 91 kg BSA (Calculated - sq m): [2.07 sq meters] 2.07 sq meters BMI (Calculated): [30.3 kg/m??-30.8 kg/m??] 30.8 kg/m?? Pulse Rate: [57-89] 66 Intake/Output Summary (Last 24 hours) at 09/23/2022 0847 Last data filed at 09/23/2022 0731 Gross per 24 hour Intake 300 ml Output 1600 ml Net -1300 ml PHYSICAL EXAM General: Resting comfortably. Neurologic: Alert, conversant. Grossly symmetric facial movements. Normal speech. Cardiovascular: Warm and well-perfused. Normal rate, regular rhythm, 2-3/6 systolic ejection murmur. No significant lower extremity edema. Right femoral artery access site without hematoma Respiratory: Normal respiratory effort. Breath sounds are present in all lung gray - clear to auscultation bilaterally, with no wheezes, rales, or rhonchi. Abdominal: Abdomen is soft, non-distended, and non-tender. No guarding, rebound, or rigidity. Normal bowel sounds. Psychiatric: Grossly normal thought process and content. DIAGNOSTICS Echocardiogram (09/22/22): Normal LV size with regional wall motion abnormalities, LVEF 40%. Grade 1/3 diastolic dysfunction. Normal RV size and function. Calcified aortic valve; MICHAEL 2.76 cm2, MG 7 mmHg. ASSESSMENT AND PLAN NEUROLOGIC: Alert, oriented Pain: Continued home oxycodone-acetaminophen 5-235 q6h PRN CARDIAC: # ST-elevation myocardial infarction posterolateral status post successful PCI of proximal LCx, unsuccessful PCI of mid RCA due to inability to deliver equipment past heavily calcified stenosis # Newly reduced LVEF 40% with grade 1/3 diastolic dysfunction # Calcific aortic valve MG 7 mmHg # Hypertension # Hyperlipidemia MAP goal: 65 Revascularization: Status post TAMMIE of left circumflex (09/22). Plan for staged PCI of mid-RCA lesionwith rotational atherectomy on 09/25 Antiplatelet: Status post ASA 325 (patient took x 2 at home) and clopidogrel 600 load. Continue ASA81 mg indefinitely, Clopidogrel 75 mg daily for 12 months post-PCI. Anticoagulation: No further heparin required Statin: Continue atorvastatin 40 mg daily GDMT: Metoprolol tartrate 12.5 mg daily, initiate losartan 25 mg daily (acei cough) today, add spironolactone prior to dismissal RESPIRATORY: Saturating well on room air RENAL: Baseline Creatinine 0.9, admit Creatinine 0.77 mg/dL - stable Electrolytes: No significant electrolyte disturbance. Daily BMP, replace PRN. Urinary catheter: None GI: Nutrition: Regular diet ENDOCRINE: # Diabetes mellitus type 2 Home regimen: Metformin 1000 mg BID. Insulin glargine 44 units and NovoLog 14 units Inpatient MDI insulin per DCS INFECTIOUS: Afebrile, no leukocytosis, no localizing infectious symptoms Antibiotics: None Cultures: None HEMATOLOGIC: Anticoagulation/DVT prophylaxis: Heparin 5000 TID ACCESS: PIV x 2 DISPOSITION: Code Status: Full Code Disposition: Stable for transfer to floor Plan discussed with Cardiac ICU c consultant and fellow, who were present during diggs portions of the evaluation today. Please page the service pager [phone] with any questions. ARY MONITOR * Deanne Langford M.D. - 09/23/2022 6:54 AM CST Hospital Day: 1 SUBJECTIVE Mr. Ramos is feeling well without complaints. No chest pain or shortness of breath. I have personally seen and evaluated Mr. Ramos in the CICU. I have reviewed his relevant vital signs, clinical, laboratory and imaging data. I have discussed the care plan with the multidisciplinaryCICU team at bedside. I have reviewed the resident's documented findings and plan of care. I agree with the resident's documentation unless as specified below. OBJECTIVE BP (!) 101/38 Pulse 66 Temp 37.1 ??C (Oral) Resp (!) 26 Ht 172 cm Wt 91 kg SpO2 92% BMI 30.76 kg/m?? Intake/Output Summary (Last 24 hours) at 09/23/2022 0655 Last data filed at 09/22/2022 2300 Gross per 24 hour Intake 550 ml Output 1200 ml Net -650 ml Heart: Regular Extremities: No hematoma. Results from last 7 days Lab Units 09/23/22 0306 09/22/22 0650 WBC x10(9)/L 8.8 9.6 HEMOGLOBIN g/dL 13.4 14.8 HEMATOCRIT % 42.0 46.2 PLATELETS AUTO x10(9)/L 362* 353* Results from last 7 days Lab Units 09/23/22 0306 09/22/22 0650 SODIUM P mmol/L -- 135 SODIUM mmol/L 138 -- CREATININE mg/dL 0.69* 0.77 ESTIMATED GFR EGFR mL/min/BSA >90 >90 BUN P mg/dL -- 18 BUN mg/dL 18 -- CHLORIDE P mmol/L -- 96* CHLORIDE mmol/L 101 -- Results from last 7 days Lab Units 09/22/22 0650 INR 1.2 Results from last 7 days Lab Units 09/22/22 0650 ALBUMIN g/dL 4.2 AST U/L 35 ALT U/L 23 ALK PHOS U/L 138* BILIRUBIN DIRECT mg/dL 0.3 BILIRUBIN TOTAL mg/dL 0.7 Results from last 7 days Lab Units 09/22/22 0651 PCO2 LAURA mm Hg 48 ASSESSMENT AND PLAN 1. Lateral ST-elevation myocardial infarction treated with stenting of the left circumflex coronaryartery We will continue aspirin and Plavix. Continue lisinopril and metoprolol. On atorvastatin. Check hemoglobin A1c. 2. Multivessel coronary artery disease with severe stenosis of the right coronary artery requiring rotational atherectomy Dr. Garcia requested that we put the patient on the schedule for Saturday for rotational atherectomy. 3. Diabetes mellitus 4. Hyperlipidemia 5. Hypertension 6. Ischemic cardiomyopathy EF 40%. Stable to transfer to the floor. Deanne Langford M.D. 09/23/2022 ARY MONITOR * Nelson Easton, Pharm.D., R.Ph. - 09/23/2022 5:40 AM CST Pharmacist Progress Note Reason for admission: STEMI->thrombotic occlusion L Cx and severe stenosis RCA-> PTCA/TAMMIE L Cx PMH: DM OBJECTIVE CV: CAD-ASA 81 mg Clopidogrel 75 mg Metoprolol 12.5 mg bid, losartan 25 mg Atorvastatin 40 mg Neph: Serum creatinine: 0.69 mg/dL (L) 09/23/22305 Estimated creatinine clearance: 100.7 mL/min (A) Endo: CSI ASP 10 TIDM GLA 50 PPX: SQ Heparin Medication Reconciliation: Held: metformin, hydrochlorothiazide 25 mg Changed: atorvastatin 20 mg -> 40 mg (noted post [place] LDL 54 non HDL 71) ; losartan 50 mg->25 mg New: metoprolol ASSESSMENT / PLAN STEMI- Plan atherectomy for stenotic RCA on 09/25 (unable to pass heavily calcified stenosis) , resumed home statin (consider increased dose) , adding spironolactone Nelson Easton PharmAnaliD., R.Ph. ARY MONITOR * Nelson Easton PharmKathleen, R.Ph. - 09/22/2022 9:13 AM CST Pharmacist Progress Note Reason for admission: STEMI->thrombotic occlusion L Cx and severe stenosis RCA-> PTCA/TAMMIE L Cx PMH: DM OBJECTIVE CV: CAD-ASA 81 mg Clopidogrel 75 mg Metoprolol 12.5 mg bid, Atorvastatin 40 mg Neph: Serum creatinine: 0.77 mg/dL 09/22/22 0650 Estimated creatinine clearance: 90.6 mL/min Endo: CSI NPH 15 unit bid PPX: hold heparin 24 hrs post PCI Medication Reconciliation: Held: lisinopril 40 mg hydrochlorothiazide 25 mg Changed: atorvastatin 20 mg -> 40 mg New: metoprolol ASSESSMENT / PLAN STEMI- Plan atherectomy for stenotic RCA on 09/25 (unable to pass heavily calcified stenosis) , resume home statin (consider increased dose) , replete potassium (3.7), Nelson Easton Pharm.D., R.Ph. ARY MONITOR * Barbie Ramos L.G.S.W., M.S.W. - 09/22/2022 8:00 AM CST SUBJECTIVE Patient presents as an overhead page from home for medical work up. Patient is not assessed due to receiving urgent medical evaluation. Per nursing staff, patient is presenting with chest pain. Patient is alert and oriented. OBJECTIVE Emergency Department social work coordinator presents to the resuscitation bay in the context of an Adult Medical Resus . Julius Ramos was brought by [facility] ground ambulance. Checked in with the treatment team regarding this patient. ASSESSMENT / PLAN ASSESSMENT Patient appears awake, alert, and oriented. Patient does not have an emergency contact listed. Social work was unable to talk with the patient to discuss reaching out to family/friends as the patientwas taken to the pit laborer. A full psychosocial assessment was not completed due to the nature of the medical evaluation. PLAN Please contact social work should any needs arise. Freda Cox M.SAnaliW. 09/22/2022 ARY MONITOR documented in this encounter H&P Notes * Deanne Langford M.D. - 09/22/2022 11:24 AM CST REFERRAL SOURCE CHIEF COMPLAINT / REASON FOR VISIT Lateral ST elevation [place] HISTORY OF PRESENT ILLNESS Mr. Ramos is a very pleasant 77 y.o. male who had chest pain that started at 3 am. Associated withshortness of breath and diaphoresis. He presented to the emergency room and was found to have a lateral ST-elevation myocardial infarction. Was taken promptly to the cardiac catheterization laboratory where he was found to have an occluded left circumflex coronary artery which was treated with PTCAand stenting and a severe stenosis of the mid right coronary artery. This could not be treated withPTCA because of lesion would not modify. This will require rotational atherectomy which was deferred for another day. He was still having ongoing chest pain so use brought to the CCU. The following portions of the patient's history were reviewed and updated as appropriate: allergies, current medications, family history, medical history, social history, surgical history, psychiatric history, substance abuse history, problem list, labs, diagnostics tests.. I also reviewed pertinent clinical notes in the electronic health record. I have personally seen and evaluated Mr. Ramos in the CICU. I have reviewed his relevant vital signs, clinical, laboratory and imaging data. I have discussed the care plan with the multidisciplinaryCICU team at bedside. I have reviewed the resident's documented findings and plan of care. I agree with the resident's documentation unless as specified below. PAST MEDICAL HISTORY 1. Right ureteral stone, treated with lithotripsy 2. Diabetes mellitus 3. Hypertension 4. Hyperlipidemia 5. Pancreatitis MEDICATIONS Prior to Admission medications Medication Sig Start Date End Date Taking? Authorizing Provider aspirin 81 mg chewable tablet 07/05/16 Yes Provider, Historical atorvastatin (LIPITOR) 20 mg tablet 07/05/16 Yes Provider, Historical cyanocobalamin (VITAMIN B12) 1,000 mcg tablet Take 1,000 mcg by mouth. 10/07/21 Yes Provider, Historical hydroCHLOROthiazide (HYDRODIURIL) 25 mg tablet Take 25 mg by mouth. 10/06/21 Yes Provider, Historical insulin aspart U-100 (NovoLOG FlexPen) 100 unit/mL (3 mL) injection Inject 14 Units under the skin 3 (three) times a day with meals. Yes Provider, Historical lisinopriL (PRINIVIL,ZESTRIL) 40 mg tablet 07/05/16 Yes Provider, Historical oxyCODONE-acetaminophen (PERCOCET) 5-325 mg per tablet Take 1 tablet by mouth every 6 (six) hours as needed. 11/02/08 Yes Provider, Historical metFORMIN (GLUCOPHAGE) 1,000 mg tablet Take 1 tablet by mouth 2 (two) times a day. 07/05/16 09/22/22 Yes Provider, Historical insulin NPH 100 unit/mL injection Inject under the skin. 08/09/16 Provider, Historical ALLERGIES Allergies as of 09/22/2022 - Reviewed 09/22/2022 Allergen Reaction Noted Bupropion hcl Other (see comments) 11/06/2021 SOCIAL HISTORY Former smoker of 55 pack years. Quit in 2012. . REVIEW OF SYSTEMS A comprehensive review of systems was completed; pertinent abnormalities are included in the History of Present Illness. PHYSICAL EXAMINATION Vitals: Temperature: 36.8 ??C Heart Rate: 67 Resp Rate: 23 Blood Pressure: 138/81 Arterial Line BP: 169/75 SpO2: 96 % Flow Rate (L/min): 2 L/min Height: 172 cm Weight: 89.5 kg BMI (Calculated): 30.3 kg/m?? General: He is a well developed well nourish male in no acute distress. Skin: No stasis dermatitis or ulceration of the lower extremities. Eyes: No xanthelasmas or conjunctivitis. ENT: No oral mucosal pallor or cyanosis. Vessels: Pedal pulses 2+ bilaterally. Right femoral sheath still in place. Heart: He is a regular rate and rhythm normal S1 and S2 with a 1/6 systolic murmur heard best at the right upper sternal border. Lungs: Clear to auscultation. Abdomen: Soft, nontender, nondistended. No hepatosplenomegaly. Extremities: No clubbing, cyanosis, or edema. DIAGNOSTIC REVIEW Results from last 7 days Lab Units 09/22/22 0650 WBC x10(9)/L 9.6 HEMOGLOBIN g/dL 14.8 HEMATOCRIT % 46.2 MCV fL 84.2 PLATELETS AUTO x10(9)/L 353* Na/KSerum/KBlood/KPlasma/KExternal/Cl/CO2:135/--/--/3.7/--/96*/-- (09/22 649) Results from last 7 days Lab Units 09/22/22 0650 INR 1.2 Results from last 7 days Lab Units 09/22/22 0651 LACTATE mmol/L 2.0 No lab exists for component: [id number] Results from last 7 days Lab Units 09/22/22 0650 WBC x10(9)/L 9.6 HEMOGLOBIN g/dL 14.8 HEMATOCRIT % 46.2 PLATELETS AUTO x10(9)/L 353* Results from last 7 days Lab Units 09/22/22 0650 SODIUM P mmol/L 135 CREATININE mg/dL 0.77 ESTIMATED GFR EGFR mL/min/BSA >90 BUN P mg/dL 18 CHLORIDE P mmol/L 96* Results from last 7 days Lab Units 09/22/22 0650 INR 1.2 Results from last 7 days Lab Units 09/22/22 0650 ALBUMIN g/dL 4.2 AST U/L 35 ALT U/L 23 ALK PHOS U/L 138* BILIRUBIN DIRECT mg/dL 0.3 BILIRUBIN TOTAL mg/dL 0.7 ECG 12 Lead Result Date: 09/22/2022 Sinus rhythm Premature ventricular complexes Non-specific intra-ventricular conduction delay T wave abnormality, consider anterolateral ischemia Nonspecific ST abnormality When compared with ECG of 06:43:06 Premature ventricular complexes are now present ST less elevated in Lateral leads ST depression in Anteroseptal leads Reviewed by MIRIAM Olivia ECG 12 Lead Result Date: 09/22/2022 Normal sinus rhythm Non-specific intra-ventricular conduction block ST elevation in Lateral leads ST depression in Anteroseptal leads When compared with ECG of 01-NOV-2008 06:44, Significant changes have occurred Reviewed by MIRIAM Olivia All labs and diagnostic studies were reviewed. ASSESSMENT / PLAN 1. Lateral ST-elevation myocardial infarction treated with stenting of the left circumflex coronaryartery We will continue aspirin and Plavix. Continue lisinopril. Start metoprolol. Recheck lipid profile. Check hemoglobin A1c. Check echocardiogram today. 2. Multivessel coronary artery disease with severe stenosis of the right coronary artery requiring rotational atherectomy Dr. Garcia requested that we put the patient on the schedule for Saturday for rotational atherectomy. 3. Diabetes mellitus 4. Hyperlipidemia 5. Hypertension Deanne Langford M.D. 09/22/2022 ARY MONITOR * Caron Thompson M.D. - 09/22/2022 8:22 AM CST RST [facility] CICU Admission Note SUBJECTIVE Posterolateral STEMI status post PCI of left circumflex, plan for staged PCI of mid-RCA lesion on 09/25/22 HISTORY OF PRESENT ILLNESS Mr. Julius Ramos is a 77 y.o. male with diabetes mellitus type 2, hypertension, hyperlipidemia. Mr. Ramos was in his usual state of health until this morning at 3:00 AM, when he awakened from sleep with substernal chest pain, shortness of breath, diaphoresis, and lightheadedness. Upon arrival to the emergency department, he was afebrile, hypertensive 170s/70s mmHg, and HR 69 bpm. ECG on presentation showed a posterolateral STEMI. He was loaded with ASA 325 (patient took x 2 at home) and clopidogrel 600 mg and started on heparin gtt. He was taken for coronary angiography which showed a thrombotic occlusion of the left circumflex artery and severe stenosis of the right coronary artery. He underwent TAMMIE x 1 to left circumflex. The right coronary artery was wired however PCI was unsuccess ful due to inability to deliver equipment past the heavily calcified stenosis. There is now a plan for staged PCI of mid-RCA lesion on 09/25/22 with rotational atherectomy. He was admitted to the cardiac ICU for further cares. He is now asymptomatic with no chest discomfort, shortness of breath, lightheadedness, or other symptoms. Social history: He lives at home with his , although she is currently not in town. He denies alcohol use. He successfully quit smoking in 2012 after a 55 year history. No other substance or supplement use. Current Outpatient Medications on File Prior to Encounter: aspirin 81 mg chewable tablet, , 09/22/2022 at 0300 atorvastatin (LIPITOR) 20 mg tablet, , 09/21/2022 cyanocobalamin (VITAMIN B12) 1,000 mcg tablet, Take 1,000 mcg by mouth., 09/21/2022 hydroCHLOROthiazide (HYDRODIURIL) 25 mg tablet, Take 25 mg by mouth., 09/21/2022 insulin aspart U-100 (NovoLOG FlexPen) 100 unit/mL (3 mL) injection, Inject 14 Units under the skin3 (three) times a day with meals., 09/21/2022 insulin glargine (LANTUS) 100 unit/mL injection, Inject 44 Units under the skin at bedtime., Past Week lisinopriL (PRINIVIL,ZESTRIL) 40 mg tablet, , 09/21/2022 oxyCODONE-acetaminophen (PERCOCET) 5-325 mg per tablet, Take 1 tablet by mouth every 6 (six) hours as needed., 09/21/2022 [DISCONTINUED] metFORMIN (GLUCOPHAGE) 1,000 mg tablet, Take 1 tablet by mouth 2 (two) times a day.,09/21/2022 [DISCONTINUED] insulin NPH 100 unit/mL injection, Inject under the skin., Unknown OBJECTIVE VITAL SIGNS Temperature: [36.8 ??C] 36.8 ??C Heart Rate: [55-81] 67 Resp Rate: [18-25] 23 Blood Pressure: (124-176)/(70-91) 138/81 Arterial Line BP: (113-169)/(74-82) 169/75 SpO2: [85 %-98 %] 96 % Flow Rate (L/min): [2 L/min] 2 L/min Height: [172 cm-172.7 cm] 172 cm Weight: [89.5 kg-90.7 kg] 89.5 kg BSA (Calculated - sq m): [2.07 sq meters] 2.07 sq meters BMI (Calculated): [30.3 kg/m??] 30.3 kg/m?? Pulse Rate: [54-84] 64 PHYSICAL EXAM General: Resting comfortably. Neurologic: Alert, conversant. Grossly symmetric facial movements. Normal speech. Cardiovascular: Warm and well-perfused. Normal rate, regular rhythm, systolic murmur present. No significant lower extremity edema. Right femoral artery access site currently with sheath Respiratory: Normal respiratory effort. Breath sounds are present in all lung gray - clear to auscultation bilaterally, with no wheezes, rales, or rhonchi. Abdominal: Abdomen is soft, non-distended, and non-tender. No guarding, rebound, or rigidity. Normal bowel sounds. Psychiatric: Grossly normal thought process and content. DIAGNOSTICS I have reviewed the pertinent diagnostics from admission. ASSESSMENT AND PLAN NEUROLOGIC: Alert, oriented Pain: Continued home oxycodone-acetaminophen 5-235 q6h PRN CARDIAC: # ST-elevation myocardial infarction posterolateral status post successful PCI of proximal LCx, unsuccessful PCI of mid RCA due to inability to deliver equipment past heavily calcified stenosis # Hypertension # Hyperlipidemia MAP goal: 65 Revascularization: Status post TAMMIE of left circumflex (09/22). Plan for staged PCI of mid-RCA lesionwith rotational atherectomy on 09/25 Antianginal: Initiate metoprolol tartrate, uptitrate as able Antiplatelet: Status post ASA 325 (patient took x 2 at home) and clopidogrel 600 load. Continue ASA81 mg indefinitely, Clopidogrel 75 mg daily for 12 months post-PCI. Anticoagulation: No further heparin required Statin: Increase atorvastatin to 40 mg daily - follow up lipid panel Hold home lisinopril 40 mg daily and hydrochlorothiazide 25 mg daily Obtain echocardiogram RESPIRATORY: Intermittently utilizing 2 L/min O2; wean as able RENAL: Baseline Creatinine 0.9, admit Creatinine 0.77 mg/dL - stable Electrolytes: No significant electrolyte disturbance. Daily BMP, replace PRN. Urinary catheter: None GI: Nutrition: Regular diet ENDOCRINE: # Diabetes mellitus type 2 Home regimen: Metformin 1000 mg BID. Insulin glargine 44 units and NovoLog 14 units Consult DCS INFECTIOUS: Afebrile, no leukocytosis, no localizing infectious symptoms Antibiotics: None Cultures: None HEMATOLOGIC: Anticoagulation/DVT prophylaxis: Ok to start heparin 5000 TID 24 hours post-cath ACCESS: PIV x 2 DISPOSITION: Code Status: Full Code Disposition: ICU level of cares Plan discussed with Cardiac ICU c consultant and fellow, who were present during diggs portions of the evaluation today. Please page the service pager [phone] with any questions. ARY MONITOR documented in this encounter Procedure Notes * Adrián Mayers M.D. - 09/22/2022 7:12 AM CSTAssociated Order(s): Critical Care Procedure Critical Care Performed by: Adrián Mayers M.D. Authorized by: Adrián Mayers M.D. Critical care provider statement: Critical care total time (minutes): 30 Critical care was time spent personally by me on the following activities: blood draw for specimens, discussions with consultants, documenting in the patient chart, examination of patient, review of old charts, ordering and review of radiographic studies, ordering and review of laboratory studies, ordering and performing treatments and interventions and obtaining history from patient or surrogate Adrián Mayers M.D. 09/22/22 0713 ARY MONITOR documented in this encounter Consult Notes * Lalitha Garza, [facility] - 09/26/2022 9:38 AM CSTAssociated Order(s): IP CONSULT TO CARDIAC REHABILITATION; IP CONSULT TO CARDIAC REHABILITATION Cardiac Rehabilitation Referral Reason for Visit: [facility] consultation for referral to cardiac rehabilitation. Liaison met with the patient/family to discuss cardiac rehabilitation referral. Patient/family was provided with progressive verbal and printed home-going exercise guidelines. Patient/family understands and agrees with the exercise guidelines. 1. Participation in a Phase II cardiac rehabilitation program is recommended. Patient was informed about what cardiac rehabilitation has to offer and why it is beneficial. The plan of care for the rehabilitation program consists of risk factor modification, monitored and supervised exercise and assistance in the recovery process with ongoing education and support. Patient is not interested in attending a cardiac rehabilitation program. 2. Eligibility: PCI 3. Exceptions/exclusions: None. 4. Referral: Patient declined referral to a cardiac rehabilitation program (onsite/virtual) due to personal preference 5. Appropriate referral information will be sent to the receiving cardiac rehabilitation program asapplicable. Patient provided verbal authorization to send relevant materials to the cardiac rehab program. Patient referred to: declined Recommend that the patient check with insurance company to verify coverage of the cost of cardiac rehabilitation program visits. ARY MONITOR * Jenny Tobias APRN, C.N.P. - 09/22/2022 12:11 PM CSTAssociated Order(s): Diabetes consult (hospital) SUBJECTIVE Diabetes consult (hospital) Referring Provider: Caron Thompson M.D. CHIEF COMPLAINT Patient seen today for management of diabetes. The patient is admitted on 09/22/2022 chest pain/ STEMI s/p Coronary Angio w/stent today. HISTORY OF PRESENT ILLNESS DIABETES HISTORY History of diabetes mellitus, type 2. Diagnosed 1998. PREADMISSION THERAPY Metformin 1000mg po daily in the AM Lantus 44 units in the AM, Novolog 14 units w/meals. (since July, previously on NPH) DIABETES COMPLICATIONS Peripheral Neuropathy feet CO-MORBIDITIES HTN, HLD, Right Ureteral Calcullus DIET: Eats 3 meals a day, largest is breakfast, not on any specific diet ACTIVITY: Golfs in the summer, active around the house, but arthritis in hip, knee keep him from walking as much as he used to. GLUCOSE MONITORIN times a day BGs average: last 2 weeks has been in the 200s-300s; prior was in the 90s-150s HYPOGLYCEMIA: Occasionally in the summer when golfing due to decreased activity, denies ever having severe event FAMILY HISTORY: Did not assess. HOSPITAL COURSE: Past 24 hour blood glucose readings: Recent Labs 09/22/22 1007 09/22/22 0650 GLUCOSEPOC 267 H -- GLUCOSE -- 360 H Yesterday, received: Took all of preadmit therapy yesterday as above. Has not have any insulin since admission. Steroids: none Current Diet Adult Diet Regular; Cardiovascular starting at 09/22 0859 REVIEW OF SYSTEMS Pertinent items are noted in HPI PREADMISSION MEDICATION: Diabetes medication(s) were reconciled on 09/22/2022 OBJECTIVE VITALS Temperature: 36.8 ??C Heart Rate: 67 Resp Rate: 23 Blood Pressure: 138/81 BP Location: Left arm;Upper Arterial Line BP: 169/75 SpO2: 96 % Flow Rate (L/min): 2 L/min BSA (Calculated - sq m): 2.07 sq meters BMI (Calculated): 30.3 kg/m?? Height: 172 cm Weight: 89.5 kg Body mass index is 30.25 kg/m??. PHYSICAL EXAMINATION Constitutional General: He is not in acute distress. Pulmonary Effort: Pulmonary effort is normal. No respiratory distress. Neurological Mental Status: He is alert. Psychiatric Speech: Speech normal. Behavior: Behavior is cooperative. DIAGNOSTICS I have reviewed relevant diagnostics and labs. Estimated Creatinine Clearance: 89.6 mL/min (by C-G formula based on SCr of 0.77 mg/dL). Lab Results Component Value Date CREATININE 0.77 09/22/2022 ASSESSMENT / PLAN #1 Type 2 Diabetes, Uncontrolled recently with hyperglycemia per self reported home blood glucoses,await HbA1c #2 s/p STEMI s/p Coronary Angio w/stent today INPATIENT PLAN: - Blood glucose monitoring: four times daily - Glucose goal: 140-180 mg/dL - Basal: Lantus 44 units in the morning. - Mealtime: NovoLog 6 units with meals. - Correction scale: NovoLog moderate correction scale three times a day - DCS will evaluate and adjust insulin doses as indicated to achieve glycemic goal. - Consults: Diabetes Educators - Hold oral diabetes medications ANTICIPATED DISMISSAL PLAN: PENDING. Preadmission regimen with dose adjustment. Will continue to assess. Blood glucose frequency: three times daily Goal: 100-140 mg/dL Please page DCS within 24 hours prior to hospital dismissal for final dismissal recommendations. Discussed above plan with the patient and patient's family. Patient is alert and oriented and in agreement with the plan. Thank you for the consult. DCS pager [phone] will follow. Call primary service for diabetes concerns between [phone]. Primary service to contact medical information specialist Endo fellow via hospital shovel loader operator for questions. ARY MONITOR documented in this encounter Nursing Notes * Adan Esparza, R.N. - 09/26/2022 2:18 PM CST Patient successfully discharged. Discharge education was provided to the patient and son, santa Lopez questions and concerns were addressed. Final vital signs were stable, and femoral access site was clean, dry, and intact. IV's were removed and telemetry was discontinued. [facility] with son to [facility] [place]. Electronically signed by: Adan Esparza R.N. 09/26/22 2:27 PM LIBRARY MONITOR ARY MONITOR * Adan Esparza R.N. - 09/26/2022 2:06 PM CST Shift Goals: Clinical Goals for the Shift: Patient will discharge Identify possible barriers to meeting goals/advancing plan of care: None End of Shift Summary: Goal met. Patient discharged. Please separate discharge not. Electronically signed by: Adan Esparza R.N. 09/26/22 2:07 PM LIBRARY MONITOR ARY MONITOR * Christiane Arias R.N. 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 ACT level turned therapeutic and sheath was successfully removed per protocol with no complications. Patient hadno complaints. Patient ambulated once after dinner and tolerated it well. Problem: PAIN - ADULT Goal: PT VERBALIZES/DEMONSTRATES ADEQUATE COMFORT LEVEL OR BASELINE 09/25/20221844 by Christiane Arias, R.N. Outcome: Progressing 09/25/20221844 by Christiane Arias, R.N. Outcome: Progressing Problem: KNOWLEDGE DEFICIT Goal: Patient/family/caregiver demonstrates understanding of disease process, treatment plan, medications, and discharge instructions 09/25/20221844 by Christiane Arias, R.N. Outcome: Progressing 09/25/20221844 by Christiane Arias, R.N. Outcome: Progressing Problem: INFECTION - ADULT Goal: Absence of infection during hospitalization 09/25/20221844 by Christiane Arias, R.N. Outcome: Progressing 09/25/20221844 by Christiane Arias, R.N. Outcome: Progressing Problem: SKIN/TISSUE INTEGRITY Goal: Skin/Tissue integrity maintained or improved 09/25/20221844 by Christiane Arias, R.N. Outcome: Progressing 09/25/20221844 by Christiane Arias, R.N. Outcome: Progressing Goal: Oral and Nasal mucous membranes remain intact 09/25/20221844 by Christiane Arias, R.N. Outcome: Progressing 09/25/20221844 by Christiane Arias, R.N. Outcome: Progressing Problem: SAFETY ADULT Goal: Maintain a safe environment 09/25/20221844 by Christiane Arias, R.N. Outcome: Progressing 09/25/20221844 by Christiane Arias, R.N. Outcome: Progressing Problem: DISCHARGE PLANNING Goal: Patient discharge needs identified 09/25/20221844 by Christiane Arias, R.N. Outcome: Progressing 09/25/20221844 by Christiane Arias, R.N. Outcome: Progressing Problem: SAFETY ADULT - RISK FOR FALL AND OR FALL INJURY Goal: Patient remains free from fall/fall injury 09/25/20221844 by Christiane Arias, R.N. Outcome: Progressing 09/25/20221844 by Christiane Arias, R.N. Outcome: Progressing Problem: POTENTIAL OR ACTUAL PRESSURE INJURY-ADULT Goal: Manage sensory Perception deficits to maintain and/or improve skin integrity 09/25/20221844 by Christiane Arias, R.N. Outcome: Progressing 09/25/20221844 by Christiane Arias, R.N. Outcome: Progressing Goal: Maintain optimal skin moisture to ensure or improve skin integrity 09/25/20221844 by Christiane Arias, R.N. Outcome: Progressing 09/25/20221844 by Christiane Arias, R.N. Outcome: Progressing Goal: Achieve optimal activity and/or mobility to maintain or improve skin integrity 09/25/20221844 by Christiane Arias, R.N. Outcome: Progressing 09/25/20221844 by Christiane Arias, R.N. Outcome: Progressing Goal: Nutrient intake appropriate for improving, restoring or maintaining skin integrity 09/25/20221844 by Christiane Arias, R.N. Outcome: Progressing 09/25/20221844 by Christiane Arias, R.N. Outcome: Progressing Goal: Minimize friction and/or shear to maintain or improve skin integrity 09/25/20221844 by Christiane Arias, R.N. Outcome: Progressing 09/25/20221844 by Christiane Arias, R.N. Outcome: Progressing Problem: Compromised Skin Integrity Goal: Skin/Tissue integrity maintained or improved 09/25/20221844 by Christiane Arias, R.N. Outcome: Progressing 09/25/20221844 by Christiane Arias, R.N. Outcome: Progressing Goal: Oral and Nasal mucous membranes remain intact 09/25/20221844 by Christiane Arias, R.N. Outcome: Progressing 09/25/20221844 by Christiane Arias, R.N. Outcome: Progressing Goal: Incisions, wounds, or drain sites healing without S/S of infection 09/25/20221844 by Christiane Arias, R.N. Outcome: Progressing 09/25/20221844 by Christiane Arias, R.N. Outcome: Progressing ARY MONITOR * Obdulia Valencia R.N. - 09/24/2022 6:09 PM CST Shift Goals: Clinical Goals for the Shift: Pt will remain free of falls during shift Identify possible barriers to meeting goals/advancing plan of care: None End of Shift Summary: Julius remained free of falls during shift. He remained call light appropriate. VSS. Problem: SAFETY ADULT Goal: Maintain a safe environment 09/24/2022 1809 by Obdulia Valencia, R.N. Outcome: Progressing 09/24/2022 1308 by Obdulia Valencia, R.N. Outcome: Adequate for Discharge Problem: SAFETY ADULT - RISK FOR FALL AND OR FALL INJURY Goal: Patient remains free from fall/fall injury 09/24/2022 1809 by Obdulia Valencia R.N. Outcome: Progressing 09/24/2022 1308 by Obdulia Valencia R.N. Outcome: Adequate for Discharge ARY MONITOR * Elda Solorio R.N. - 09/23/2022 1:33 PM CST Report given to floor nurse, VS WNL, patient stable to transfer. ARY MONITOR * Danielle Sutherland R.N. - 09/23/2022 5:49 AM CST Shift Goals: Clinical Goals for the Shift: chest pain free, stable vs Identify possible barriers to meeting goals/advancing plan of care: STEMI End of Shift Summary: Patient denies pain, SOB.vital signs stable ARY MONITOR * Srinivas Kruse M.B., B.Ch., B.A.O. - 09/22/2022 7:10 AM CST CICU Consultation - STEMI Activation Mr. Julius Ramos is a 77-year-old male with a past medical history of hypertension, hyperlipidemia, type 2 diabetes mellitus on insulin, positive family history coronary artery disease. He reports the onset of substernal chest pain at 3 a.m. this morning with associated shortness of breath, nausea, diaphoresis. Hypertensive on admission, otherwise vitally stable. ECG on presentation shows posterolateral STEMI. Received aspirin, clopidogrel 600 mg, and heparin. Proceeded to coronary angiography which demonstrated thrombotic occlusion of the left circumflex artery and severe stenosis of the right coronary artery. He underwent TAMMIE x 1 to left circumflex. Admitted to the cardiac ICU for further cares. ARY MONITOR documented in this encounter OR Notes * Brief Op Note - Geetha Adler M.D. - 09/25/2022 9:48 AM CST Images from the original note were not included. PATIENT: Julius Ramos : 1945 DATE OF SERVICE: 09/25/2022 Procedure: Coronary angiography. Successful PCI of prox-mid RCA with rotational atherectomy, PTCA, and deployment of a 3.0 x 38 mm Synergy TAMMIE Implant Name Type Inv. Item Serial No. Set Up Mechanic Heading Machines Lot No. LRB No. Used Action STNT SYNERGY XD DE 3.00X38 - [id number] Cardiac Stent STNT SYNERGY XD DE 3.00X38 [employer] [id number] N/A 1 Implanted Operators: Mike Garcia M.D., Ph.D. Geetha Adler M.D. Indication: Staged RCA PCI, recent anterior STEMI Access Site(s): Right common femoral artery, 6 Sudanese sheath(s). Sutured in at the end of the case to be removed later in recovery. Complications: No Recommendations: -Aspirin 81mg daily indefinitely barring any complications -Clopidogrel 75 mg daily for 12 months as part of dual antiplatelet therapy from 09/25/2022 -Transfer back to cardiology floor service Please see c consultant cath operative report for further information. This is available under Document Viewer as Diagnostic Report - Cath/EP. Code status: FULL, until time of discharge If clinical status changes, please contact the proceduralist to discuss reversal of code status. Geetha Adler M.D. 09/25/22 ARY MONITOR * Brief Op Note - Geetha Adler M.D. - 09/22/2022 7:22 AM CST Images from the original note were not included. PATIENT: Julius Ramos : 1945 DATE OF SERVICE: 09/22/2022 Procedure: Coronary angiography. Successful PCI of prox LCx with PTCA and deployment of a 3.5 x 16 mm Synergy TAMMIE Unsuccessful PCI of mid RCA due to inability to deliver equipment past heavily calcified stenosis Implant Name Type Inv. Item Serial No. Set Up Mechanic He[employer] Mach[employer] Lot No. LRB No. Used Action STNT SYNERGY XD DE 3.50X16 - [id number] Cardiac Stent STNT SYNERGY XD DE 3.50X16 [employer] [address] [employer] [id number] N/A 1 Implanted Operators: Mike Garcia M.D., Ph.D. Geetha Adler M.D. Indication: Posterior STEMI Access Site(s): Right common femoral artery, 6 Sudanese sheath(s). Sutured in at the end of the case to be removed later in recovery. Complications: No Recommendations: -Aspirin 81mg daily indefinitely barring any complications -Clopidogrel 75 mg daily for 12 months as part of dual antiplatelet therapy from 07/22/2023 -Will plan for staged PCI of mid RCA this Saturday with rotational atherectomy Please see c consultant cath operative report for further information. This is available under Document Viewer as Diagnostic Report - Cath/EP. Code status: FULL, until time of discharge If clinical status changes, please contact the proceduralist to discuss reversal of code status. Geetha Adler M.D. 09/22/22 ARY MONITOR documented in this encounter ED Notes * Florencia Rene R.N. - 09/22/2022 7:02 AM CST Pt arrived for new onset of chest pain @ 0300. Pt took x2 ASA when chest pain occurred, pt had no relief. Pt stated he felt nauseous & diaphoretic this AM. Florencia Rene R.N. 09/22/22 0703 Florencia Rene R.N. 09/22/22 0710 ARY MONITOR * Cy Boles APRN, C.N.P., D.N.P. - 09/22/2022 6:55 AM CST SUBJECTIVE CHIEF COMPLAINT/REASON FOR VISIT Chest Pain HISTORY OF PRESENT ILLNESS Julius is a 77-year-old male with past medical history of insulin-dependent type 2 diabetes, hyperlipidemia, and hypertension. He presented to ED for evaluation of chest pain, lightheadedness, and associated shortness of breath. Symptoms started around 3:00 a.m. this morning. Rates his chest pain at 7/10. No radiation of pain to other part of the body. Denies any prior history of ACS or coronary artery disease. Does report 55 year history of smoking but quit in 2012. He indicates his dad has history of ACS. No other issues or concerns. REVIEW OF SYSTEMS Constitutional: Positive for diaphoresis. Negative for chills, fatigue and fever. HENT: Negative for congestion and sore throat. Eyes: Negative for visual disturbance. Respiratory: Positive for shortness of breath. Negative for cough and wheezing. Cardiovascular: Positive for chest pain. Gastrointestinal: Positive for nausea. Negative for abdominal pain and vomiting. Endocrine: Negative for polyuria. Genitourinary: Negative for dysuria and flank pain. Musculoskeletal: Negative for back pain and neck pain. Skin: Negative for rash. Neurological: Positive for light-headedness. Negative for speech difficulty, weakness and headaches. Psychiatric/Behavioral: Negative for substance abuse. OBJECTIVE Initial Vitals Temp -- Pulse Rate 09/22/22 0637 69 Heart Rate 09/22/22 0637 66 Resp Rate 09/22/22 0637 18 Blood Pressure 09/22/22 0637 (!) 176/79 SpO2 09/22/22 0637 97 % Pain Score 09/22/22 0645 7 PHYSICAL EXAMINATION Constitutional: Nursing note and vitals reviewed. No distress. HENT: Head: Atraumatic. Mouth/Throat: Mucous membranes are moist. Eyes: Conjunctivae are normal. Neck: Neck supple. Cardiovascular: Regular rhythm and normal heart sounds. Pulses are strong and palpable. Pulmonary/Chest: Effort normal and breath sounds normal. There is normal air entry. No respiratory distress. Abdominal: Soft. exhibits no distension. There is no abdominal tenderness. There is no guarding. Musculoskeletal: General: No tenderness, deformity or edema. Cervical back: Neck supple. Neurological: Alert and oriented to person, place, and time. Skin: Skin is warm and intact. Psychiatric: He has a normal mood and affect. ASSESSMENT/PLAN Differential diagnosis include but not limited to STEMI, non-STEMI, dysrhythmia, pneumonia, pericarditis, myocarditis, PE Restless the pleasant 77-year-old gentleman who presented today for evaluation of chest pain. He was hypertensive upon presenting. Rest of the vitals are fairly unremarkable. His EKG findings are consistent with posterior lateral STEMI. Supervisor Records Change consulted and STEMI activated. Was given aspirin, Plavix, and nitro drip, and heparin per cardiology's recommendation. 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 ED Course as of 09/22/22 0927 Sat Sep 22, 2022 0706 Lactate: 2.0 0706 Platelet Count(!): 353 0706 Neutrophils(!): 7.65 Noted 0714 D-Dimer, P: 427 D-dimer not elevated, PE less likely. 0720 DX Chest Portable 1 View IMPRESSION: No comparison. Negative chest. 0730 NT-Pro BNP: 62 Within normal limits. 0731 Troponin T, Baseline, 5th gen(!): 67 Elevated troponin. Final Diagnoses: as of 09/22/[address] Elevation Myocardial Infarction Of Unspecified Site (HCC) ST Elevation Myocardial Infarction Involving Left Circumflex Coronary Artery (HCC) Cy Boles APRN, C.N.P., D.N.P. 09/22/22 0934 ARY MONITOR * Adrián Mayers M.D. - 09/22/2022 6:37 AM CST SUBJECTIVE CHIEF COMPLAINT/REASON FOR VISIT Chest Pain HISTORY OF PRESENT ILLNESS History provided by: Patient Julius Ramos is a 77 y.o. male with a past medical history of DM, hypertension hyperlipidemia who presents with substernal chest discomfort starting at 3:00 a.m. admits to associated shortnessof breath and diaphoresis well as lightheadedness. Denies nausea or vomiting, history DVT, history of PE, prolonged immobilization, recent surgery, lower extremity swelling, hemoptysis, fever, productive cough, No current facility-administered medications on file prior to encounter. Current Outpatient Medications on File Prior to Encounter Medication Sig Dispense Refill aspirin 81 mg chewable tablet atorvastatin (LIPITOR) 20 mg tablet cyanocobalamin (VITAMIN B12) 1,000 mcg tablet Take 1,000 mcg by mouth. hydroCHLOROthiazide (HYDRODIURIL) 25 mg tablet Take 25 mg by mouth. insulin NPH 100 unit/mL injection Inject under the skin. lisinopriL (PRINIVIL,ZESTRIL) 40 mg tablet metFORMIN (GLUCOPHAGE) 1,000 mg tablet Take 1 tablet by mouth 2 (two) times a day. oxyCODONE-acetaminophen (PERCOCET) 5-325 mg per tablet Take 1 tablet by mouth every 6 (six) hours as needed. REVIEW OF SYSTEMS Constitutional: Positive for chills. Negative for fever. Respiratory: Negative for cough, chest tightness and shortness of breath. Cardiovascular: Positive for chest pain. Negative for palpitations and leg swelling. Gastrointestinal: Negative for abdominal distention. Genitourinary: Negative for dysuria and flank pain. Musculoskeletal: Negative for back pain. Neurological: Negative for light-headedness and headaches. OBJECTIVE Initial Vitals Temp -- Pulse Rate 09/22/22 0637 69 Heart Rate 09/22/22 0637 66 Resp Rate 09/22/22 0637 18 Blood Pressure 09/22/22 0637 (!) 176/79 SpO2 09/22/22 0637 97 % Pain Score 09/22/22 0645 7 PHYSICAL EXAMINATION Constitutional: Nursing note and vitals reviewed. HENT: Head: Normocephalic and atraumatic. Mouth/Throat: Oropharynx is clear and moist. Mucous membranes are moist. Eyes: Conjunctivae and EOM are normal. Pupils are equal, round, and reactive to light. Neck: Neck supple. Cardiovascular: Normal rate. Capillary refill: takes less than 3 seconds Pulmonary/Chest: Effort normal and breath sounds normal. There is normal air entry. Abdominal: Soft. Bowel sounds are normal. Musculoskeletal: General: Normal range of motion. Cervical back: Normal range of motion and neck supple. Neurological: Alert. He has normal sensation and normal strength. GCS eye subscore is 4. GCS verbalsubscore is 5. GCS motor subscore is 6. Normal speech. Skin: Skin is warm. ASSESSMENT/PLAN Final Diagnoses: as of 09/22/[address] Elevation Myocardial Infarction Of Unspecified Site (HCC) ST Elevation Myocardial Infarction Involving Left Circumflex Coronary Artery (HCC) 77 y.o. male with a past medical history of DM, hypertension hyperlipidemia who presents with substernal chest discomfort starting at 3:00 a.m. admits to associated shortness of breath exam was without signs of heart failure. EKG shows appears to be a posterior lateral STEMI. STEMI page has been activated. He was placed on a monitor has 2 IVs and we will place cardiac pacer and defibrillator pads. We will administer aspirin Plavix and heparin. We will be started on nitroglycerin with a nitro drip if he becomes hypotensive we will turned the drip off and provide him with fluid boluses I have personally seen and examined this patient. I have fully participated in the care of this patient. I personally performed a substantive portion of the visit including all aspects of medical decision making. I agree with the note of the FUNNEL SETTER/PA. Adrián Mayers M.D. 09/22/22 0701 Adrián Mayers M.D. 09/22/22 1536 ARY MONITOR documented in this encounter Miscellaneous Notes * Hospital Course - Walt Campbell P.A.-C., M.S. - 09/22/2022 1:01 PM LIBRARY MONITOR Mr. Julius Ramos is a 77 y.o. male who presented to [facility] Emergency Department on 09/22/2022 with chest pain. He has medical comorbidities including but not limited to coronary artery disease, diabetes mellitus type 2, hypertension, and hyperlipidemia. He was in his usual state of health until he was awakened from sleep on 09/22 with substernal chestpain, shortness of breath, diaphoresis, and lightheadedness. Upon arrival to the emergency department, he was hypertensive but otherwise hemodynamically stable. ECG on presentation showed a posterolat eral STEMI. He was loaded with ASA 325 (patient took x 2 at home) and clopidogrel 600 mg and started on heparin gtt. He was taken for coronary angiography which showed a thrombotic occlusion of the left circumflex artery and severe stenosis of the right coronary artery. He underwent TAMMIE x 1 to left circumflex. The right coronary artery was wired however PCI was unsuccessful due to inability to deliver equipment past the heavily calcified stenosis. He was admitted to the cardiac intensive care unit due to ongoing chest pain following angiogram. Post-intervention, he was hemodynamically stable and without signs of acute heart failure. Nitroglycerin infusion initiated for ongoing chest pain was quickly weaned. Dual antiplatelet therapy with aspirin 81 mg and clopidogrel 75 mg were continued. TTE demonstrated LVEF 40% with posteriolateral wall motion abnormalities and grade 1/3 diastolic dysfunction. He was initiated on guideline directed medical therapy with metoprolol tartrate, which was transitioned to metoprolol succinate prior to dismissal. Home losartan was continued. His atorvastatin was increased to 80 mg daily; he should have a follow up lipid panel in 2-3 months with a goal LDL < 70. He transferred to the PCU on 09/23. He was noted to be mildly volume overloaded and was gently diuresed with oral and intravenous furosemide. DCS was consulted for assistance in managing his poorly controlled diabetes. Hemoglobin A1c was 10.1% on admission. They recommended . He proceeded for staged PCI with rotational arthrectomy of mid-RCA lesion on 09/25/22 with successful placement of a drug-eluting stent. Patient will continue DAPT with aspirin 81 mg indefinitely and clopidogrel 75 mg daily for 12 months. Patient discharged home in stable condition on . ARY MONITOR documented in this encounter Plan of Treatment Not on file documented as of this encounter Procedures Procedure Name Priority Date/Time Associated Diagnosis Comments GLUCOSE POCT, B Routine 09/26/2022 11:38 AM LIBRARY MONITOR CBC WITH DIFFERENTIAL, B Routine 09/26/2022 8:22 AM LIBRARY MONITOR BASIC METABOLIC PANEL, S/P Routine 09/26/2022 8:22 AM LIBRARY MONITOR GLUCOSE POCT, B Routine 09/26/2022 7:21 AM LIBRARY MONITOR GLUCOSE POCT, B Routine 09/25/2022 8:58 PM LIBRARY MONITOR GLUCOSE POCT, B Routine 09/25/2022 4:39 PM LIBRARY MONITOR ACT, POCT, B Timed 09/25/2022 2:09 PM LIBRARY MONITOR ACT, POCT, B Routine 09/25/2022 2:06 PM LIBRARY MONITOR GLUCOSE POCT, B Routine 09/25/2022 12:50 PM LIBRARY MONITOR ECG Timed 09/25/2022 12:28 PM LIBRARY MONITOR ADULT OXYGEN THERAPY Routine 09/25/2022 12:05 PM LIBRARY MONITOR ADULT OXYGEN THERAPY Routine 09/25/2022 12:05 PM LIBRARY MONITOR CARDIAC CATHETERIZATION Routine 09/25/2022 11:[address] Elevation Myocardial Infarction Involving Left Circumflex Coronary Artery (HCC) Atherosclerotic Heart Disease Of [place] Coronary Artery Without Angina Pectoris CARDIAC CATHETERIZATION Routine 09/25/2022 11:[address] Elevation Myocardial Infarction Involving Left Circumflex Coronary Artery (HCC) Atherosclerotic Heart Disease Of [place] Coronary Artery Without Angina Pectoris CARDIAC CATHETERIZATION Routine 09/25/2022 11:[address] Elevation Myocardial Infarction Involving Left Circumflex Coronary Artery (HCC) Atherosclerotic Heart Disease Of [place] Coronary Artery Without Angina Pectoris ACT, POCT, B Routine 09/25/2022 11:01 AM LIBRARY MONITOR GLUCOSE POCT, B Routine 09/25/2022 11:00 AM LIBRARY MONITOR ACT, POCT, B Routine 09/25/2022 10:29 AM LIBRARY MONITOR ADULT OXYGEN THERAPY Routine 09/25/2022 9:52 AM LIBRARY MONITOR GLUCOSE POCT, B Routine 09/25/2022 7:31 AM LIBRARY MONITOR CBC WITH DIFFERENTIAL, B Routine 09/25/2022 6:40 AM LIBRARY MONITOR BASIC METABOLIC PANEL, S/P Routine 09/25/2022 6:40 AM LIBRARY MONITOR GLUCOSE POCT, B Routine 09/24/2022 9:21 PM LIBRARY MONITOR GLUCOSE POCT, B Routine 09/24/2022 4:40 PM LIBRARY MONITOR GLUCOSE POCT, B Routine 09/24/2022 11:36 AM LIBRARY MONITOR GLUCOSE POCT, B Routine 09/24/2022 8:10 AM LIBRARY MONITOR CBC WITH DIFFERENTIAL, B Routine 09/24/2022 5:51 AM LIBRARY MONITOR BASIC METABOLIC PANEL, S/P Routine 09/24/2022 5:51 AM LIBRARY MONITOR GLUCOSE POCT, B Routine 09/23/2022 9:31 PM LIBRARY MONITOR GLUCOSE POCT, B Routine 09/23/2022 5:06 PM LIBRARY MONITOR GLUCOSE POCT, B Routine 09/23/2022 11:27 AM LIBRARY MONITOR GLUCOSE POCT, B Routine 09/23/2022 7:35 AM LIBRARY MONITOR GLUCOSE POCT, B Routine 09/23/2022 3:08 AM LIBRARY MONITOR LIPID PANEL, S Routine 09/23/2022 3:06 AM LIBRARY MONITOR CBC WITH DIFFERENTIAL, B Routine 09/23/2022 3:06 AM LIBRARY MONITOR BASIC METABOLIC PANEL, S/P Routine 09/23/2022 3:06 AM LIBRARY MONITOR HEMOGLOBIN A1C, B Routine 09/23/2022 3:0 3 AM LIBRARY MONITOR GLUCOSE POCT, B Routine 09/22/2022 9:15 PM LIBRARY MONITOR GLUCOSE POCT, B Routine 09/22/2022 5:04 PM LIBRARY MONITOR (TTE) 2D ECHO DOPPLER COLOR AND CONTRAST Routine 09/22/2022 4:32 PM LIBRARY MONITOR ECG Routine 09/22/2022 1:41 PM LIBRARY MONITOR GLUCOSE POCT, B Routine 09/22/2022 1:07 PM LIBRARY MONITOR ACT, POCT, B Routine 09/22/2022 11:38 AM LIBRARY MONITOR ACT, POCT, B STAT 09/22/2022 11:37 AM LIBRARY MONITOR GLUCOSE POCT, B Routine 09/22/2022 10:07 AM LIBRARY MONITOR ACT, POCT, B Timed 09/22/2022 9:38 AM LIBRARY MONITOR ACT, POCT, B Routine 09/22/2022 9:35 AM LIBRARY MONITOR ECG STAT 09/22/2022 9:12 AM LIBRARY MONITOR TROPONIN T, 2H/6H, 5TH GEN, P Timed 09/22/2022 9:06 AM LIBRARY MONITOR ADULT OXYGEN THERAPY Routine 09/22/2022 8:59 AM LIBRARY MONITOR ADULT OXYGEN THERAPY Routine 09/22/2022 8:59 AM LIBRARY MONITOR CARDIAC CATHETERIZATION Routine 09/22/2022 8:35 AM LIBRARY MONITOR CARDIAC CATHETERIZATION Routine 09/22/2022 8:35 AM LIBRARY MONITOR CARDIAC CATHETERIZATION Routine 09/22/2022 8:35 AM LIBRARY MONITOR ACT, POCT, B Routine 09/22/2022 7:45 AM LIBRARY MONITOR CRITICAL CARE Routine 09/22/2022 7:12 AM LIBRARY MONITOR DX CHEST PORTABLE 1 VIEW RAD - Semiurgent (Fast; most ED patients; some inpatients) 09/22/2022 6:58 AM LIBRARY MONITOR LACTATE, B STAT 09/22/2022 6:51 AM LIBRARY MONITOR PATIENT STATUS STAT 09/22/2022 6:51 AM LIBRARY MONITOR VENOUS BLOOD GAS W/O COOX STAT 09/22/2022 6:51 AM LIBRARY MONITOR TROPONIN T, BASELINE, 5TH GEN, P STAT 09/22/2022 6:50 AM LIBRARY MONITOR HEPATIC FUNCTION PANEL, S STAT 09/22/2022 6:50 AM LIBRARY MONITOR NT-PRO B-TYPE NATRIURETIC PEPTIDE (BNP), S STAT 09/22/2022 6:50 AM LIBRARY MONITOR SEDIMENTATION RATE, B STAT 09/22/2022 6:50 AM LIBRARY MONITOR PROTHROMBIN TIME (PT), P STAT 09/22/2022 6:50 AM LIBRARY MONITOR D-DIMER, P STAT 09/22/2022 6:50 AM LIBRARY MONITOR CBC WITH DIFFERENTIAL, B STAT 09/22/2022 6:50 AM LIBRARY MONITOR TYPE AND SCREEN STAT 09/22/2022 6:50 AM LIBRARY MONITOR THYROID-STIMULATING HORMONE-SENSITIVE (S-TSH) STAT 09/22/2022 6:50 AM LIBRARY MONITOR LIPASE, S/P STAT 09/22/2022 6:50 AM LIBRARY MONITOR BASIC METABOLIC PANEL, S/P STAT 09/22/2022 6:50 AM LIBRARY MONITOR ECG Routine 09/22/2022 6:44 AM LIBRARY MONITOR ECG STAT 09/22/2022 6:43 AM LIBRARY MONITOR documented in this encounter Results * (ABNORMAL) Glucose, POCT (09/26/2022 11:38 AM LIBRARY MONITOR) Pathologist [facility] Glucose, POCT, B 281(H) 70 - 140 mg/dL 09/26/2022 11:42 AM LIBRARY MONITOR PCLX Site Capillary 09/26/2022 11:42 AM LIBRARY MONITOR PCLX Last Intake 3-4 hours 09/26/2022 11:42 AM LIBRARY MONITOR PCLX Blood 09/26/2022 11:3 8 AM LIBRARY MONITOR 09/26/2022 11:42 AM LIBRARY MONITOR Unknown Provider LAB POCT ORDERABLES- MANUAL POC [facility] SERVICES [address] [place] [address], [facility] PCLX [facility] POC [address] [place] [address] * (ABNORMAL) CBC with Differential, Blood (09/26/2022 8:22 AM LIBRARY MONITOR) Pathologist [facility] Hemoglobin 13.8 13.2 - 16.6 g/dL 09/26/2022 9:24 AM LIBRARY MONITOR DTL Hematocrit 43.7 38.3 - 48.6 % 09/26/2022 9:24 AM LIBRARY MONITOR DTL Erythrocytes 5.22 4.35 - 5.65 x10(12)/L 09/26/2022 9:24 AM LIBRARY MONITOR DTL MCV 83.7 78.2 - 97.9 fL 09/26/2022 9:24 AM LIBRARY MONITOR DTL RBC Distrib Width 14.5 11.8 - 14.5 % 09/26/2022 9:24 AM LIBRARY MONITOR DTL Platelet Count 375(H) 135 - 317 x10(9)/L 09/26/2022 9:24 AM LIBRARY MONITOR DTL Leukocytes 6.8 3.4 - 9.6 x10(9)/L 09/26/2022 9:24 AM LIBRARY MONITOR DTL Neutrophils 4.79 1.56 - 6.45 x10(9)/L 09/26/2022 9:24 AM LIBRARY MONITOR DTL Lymphocytes 1.31 0.95 - 3.07 x10(9)/L 09/26/2022 9:24 AM LIBRARY MONITOR DTL Monocytes 0.64 0.26 - 0.81 x10(9)/L 09/26/2022 9:24 AM LIBRARY MONITOR DTL Eosinophils 0.07 0.03 - 0.48 x10(9)/L 09/26/2022 9:24 AM LIBRARY MONITOR DTL Basophils 0.03 0.01 - 0.08 x10(9)/L 09/26/2022 9:24 AM LIBRARY MONITOR DTL Blood (Blood, Venous) 09/26/2022 8:22 AM LIBRARY MONITOR 09/26/2022 9:15 AM LIBRARY MONITOR Caron Thompson M.D. LAB BLOOD ADD-ON [facility] [address] [place] [address], [facility] [address] [place] [address] * (ABNORMAL) Basic Metabolic Panel (09/26/2022 8:22 AM LIBRARY MONITOR) Pathologist [facility] Potassium, S 4.3 3.6 - 5.2 mmol/L 09/26/2022 10:30 AM LIBRARY MONITOR DTL Sodium, S 134(L) 135 - 145 mmol/L 09/26/2022 10:30 AM LIBRARY MONITOR DTL Chloride, S 98 98 - 107 mmol/L 09/26/2022 10:30 AM LIBRARY MONITOR DTL Bicarbonate, S 22 22 - 29 mmol/L 09/26/2022 10:30 AM LIBRARY MONITOR DTL Anion Gap 14 7 - 15 09/26/2022 10:30 AM LIBRARY MONITOR DTL BUN (Blood Urea Nitrogen), S 25(H) 8 - 24 mg/dL 09/26/2022 10:30 AM LIBRARY MONITOR DTL Creatinine 0.75 0.74 - 1.35 mg/dL 09/26/2022 10:30 AM LIBRARY MONITOR DTL Estimated GFR (eGFR) >90 >=60 mL/min/BSA 09/26/2022 10:30 AM LIBRARY MONITOR DTL Comment: Estimated GFR calculated using the 2020 CKD_EPI creatinine equation. Calcium, Total, S 8.8 8.8 - 10.2 mg/dL 09/26/2022 10:30 AM LIBRARY MONITOR DTL Glucose, S 367(H) 70 - 140 mg/dL 09/26/2022 10:30 AM LIBRARY MONITOR DTL Blood (Blood, Venous) 09/26/2022 8:22 AM LIBRARY MONITOR 09/26/2022 10:07 AM LIBRARY MONITOR Caron Thompson M.D. LAB BLOOD ADD-ON [facility] [address] [place] [address], [facility] DTL [facility] [address] [place] [address] * (ABNORMAL) Glucose, POCT (09/26/2022 7:21 AM LIBRARY MONITOR) Glucose, POCT, B 267(H) 70 - 140 mg/dL 09/26/2022 7:26 AM LIBRARY MONITOR PCLX Site Capillary 09/26/2022 7:26 AM LIBRARY MONITOR PCLX Blood 09/26/2022 7:21 AM LIBRARY MONITOR 09/26/2022 7:26 AM LIBRARY MONITOR Unknown Provider LAB POCT ORDERABLES- MANUAL Performing Organization Address City/[facility]/ZIP Co de Phone Number POC [facility] SERVICES [address] [place] [address], [place] PCLX [facility] POC [address] [place] [address] * (ABNORMAL) Glucose, POCT (09/25/2022 8:58 PM LIBRARY MONITOR) Glucose, POCT, B 213(H) 70 - 140 mg/dL 09/25/2022 9:01 PM LIBRARY MONITOR PCLX Site Capillary 09/25/2022 9:01 PM LIBRARY MONITOR PCLX Last Intake 3-4 hours 09/25/2022 9:01 PM LIBRARY MONITOR PCLX Blood 09/25/2022 8:58 PM LIBRARY MONITOR 09/25/2022 9:01 PM LIBRARY MONITOR Unknown Provider LAB POCT ORDERABLES- MANUAL POC [facility] [address] [place] [address], [place] PCLX [facility] POC [address] [place] [address] * (ABNORMAL) Glucose, POCT (09/25/2022 4:39 PM LIBRARY MONITOR) Glucose, POCT, B 147(H) 70 - 140 mg/dL 09/25/2022 4:42 PM LIBRARY MONITOR PCLX Site Capillary 09/25/2022 4:42 PM LIBRARY MONITOR PCLX Last Intake NPO 09/25/2022 4:42 PM LIBRARY MONITOR PCLX Blood 09/25/2022 4:39 PM LIBRARY MONITOR 09/25/2022 4:42 PM LIBRARY MONITOR Unknown Provider LAB POCT ORDERABLES- MANUAL Performing Organization Address City/[facility]/ZIP Co de Phone Number POC [facility] SERVICES [address] [place] [address], [place] PCLX [facility] [address] [place] [address] * ACT (Activated Clotting Time), POCT (09/25/2022 2:09 PM LIBRARY MONITOR) Pathologist [facility] Activated Clot Time, [place], POCT Collected DEFAULT 09/25/2022 2:09 PM LIBRARY MONITOR SMLX Blood (Blood, Venous) 09/25/2022 2:09 PM LIBRARY MONITOR 09/25/2022 2:09 PM LIBRARY MONITOR Denny Mena P.A.-C. LAB POCT ORDERABLE S - DEVICE Performing Organization Address [facility] Co de Phone Number [facility] [address] [place] [address], [place] SMLX [facility] [address] [place] [address] * (ABNORMAL) ACT (Activated Clotting Time), POCT (09/25/2022 2:06 PM LIBRARY MONITOR) Activated Clotting Time, POCT 160(H) 84 - 139 sec 09/25/2022 2:18 PM LIBRARY MONITOR PCSM Blood 09/25/2022 2:06 PM LIBRARY MONITOR 09/25/2022 2:18 PM LIBRARY MONITOR Unknown Provider LAB POCT ORDERABLES - DEVICE Performing Organization Address City/[facility]/ZIP Co de Phone Number POC [facility] [address] [place] [address], [facility] PCSM [facility] POC [address] [place] [address] * (ABNORMAL) Glucose, POCT (09/25/2022 12:50 PM LIBRARY MONITOR) Glucose, POCT, B 212(H) 70 - 140 mg/dL 09/25/2022 1:25 PM LIBRARY MONITOR PCLX Site Capillary 09/25/2022 1:25 PM LIBRARY MONITOR PCLX Last Intake > 4 hours 09/25/2022 1:25 PM LIBRARY MONITOR PCLX Blood 09/25/2022 12:5 0 PM LIBRARY MONITOR 09/25/2022 1:25 PM LIBRARY MONITOR Unknown Provider LAB POCT ORDERABLES- MANUAL Performing Organization Address [facility] Co de Phone Number POC [facility] SERVICES [address] [place] [address], [facility] PCLX [facility] POC [address] [place] [address] * ECG 12 Lead (09/25/2022 12:28 PM LIBRARY MONITOR) Ventricular Rate ECG/Min 61 BPM MUSE DE Interval 156 ms MUSE QRSD Interval 134 ms MUSE QT Interval 470 ms MUSE QTC Interval 473 ms MUSE P [place] 48 degrees MUSE R [place] -50 degrees MUSE T Wave [place] -71 degrees MUSE 09/25/2022 12:2 8 PM LIBRARY MONITOR 09/25/2022 12:35 PM LIBRARY MONITOR Impressions MUSE - 09/25/2022 12:35 PM LIBRARY MONITOR Normal sinus rhythm Left axis deviation Non-specific intra-ventricular conduction delay T wave abnormality, consider inferior ischemia When compared with ECG of 22-SEP-2022 13:41, No significant change was found Reviewed by MIRIAM Peres Narrative Procedure Note Zaid Paredes M.D., Ph.D. - 09/25/2022 IMPRESSION: Normal sinus rhythm Left axis deviation Non-specific intra-ventricular conduction delay T wave abnormality, consider inferior ischemia When compared with ECG of 22-SEP-2022 13:41, No significant change was found Reviewed by MIRIAM Peres Geetha Adler M.D. ECG ORDERABLES MUSE NA * CORONARY ATHERECTOMY, PERCUTANEOUS CORONARY ANGIOPLASTY, STENT PLACEMENT (09/25/2022 11:10 AM LIBRARY MONITOR) Anatomical Region Laterality Modality X-Ray Angiograph y 09/25/2022 10:1 3 AM LIBRARY MONITOR Narrative 09/25/2022 4:13 PM LIBRARY MONITOR For the complete report, see the Order-Level Documents. PROCEDURE TYPES 1. ??CORONARY ATHERECTOMY 2. ??PERCUTANEOUS CORONARY ANGIOPLASTY 3. ??CORONARY STENT PLACEMENT FINAL DIAGNOSIS 1. ??Severe coronary artery atherosclerosis 2. ??Rotational atherectomy 3. ??Successful percutaneous coronary intervention with drug eluting stent PRE-PROCEDURE DIAGNOSIS 1. 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 ??Atherosclerotic Heart Disease Of [place] Coronary Artery Without Angina Pectoris CORONARY DIAGNOSTIC SUMMARY Coronary artery dominance is right. ??The ??left main coronary LAD coronary Circumflex coronary were [...] the complete report, see the Order-Level Documents. Daisy Moore APRN, C.N.P. CV CARDIAC CATH PROCEDURES * (ABNORMAL) ACT (Activated Clotting Time), POCT (09/25/2022 11:01 AM LIBRARY MONITOR) Activated Clotting Time, POCT 284(H) 84 - 139 sec 09/25/2022 11:07 AM LIBRARY MONITOR PCSM Blood 09/25/2022 11:0 1 AM LIBRARY MONITOR 09/25/2022 11:07 AM LIBRARY MONITOR Unknown Provider LAB POCT ORDERABLES - DEVICE Performing Organization Address [facility] Co de Phone Number POC [facility] [address] [place] [address], [facility] PCSM [facility] POC [address] [place] [address] * (ABNORMAL) Glucose, POCT (09/25/2022 11:00 AM LIBRARY MONITOR) Glucose, POCT, B 213(H) 70 - 140 mg/dL 09/25/2022 11:19 AM LIBRARY MONITOR PCLX Blood 09/25/2022 11:0 0 AM LIBRARY MONITOR 09/25/2022 11:20 AM LIBRARY MONITOR Unknown Provider LAB POCT ORDERABLES- MANUAL Performing Organization Address [facility] Co de Phone Number POC [facility] SERVICES [address] [place] [address], [facility] PCLX [facility] POC [address] [place] [address] * (ABNORMAL) ACT (Activated Clotting Time), POCT (09/25/2022 10:29 AM LIBRARY MONITOR) Activated Clotting Time, POCT 316(H) 84 - 139 sec 09/25/2022 10:35 AM LIBRARY MONITOR PCSM Blood 09/25/2022 10:2 9 AM LIBRARY MONITOR 09/25/2022 10:36 AM LIBRARY MONITOR Unknown Provider LAB POCT ORDERABLES - DEVICE Performing Organization Address [facility] Co de Phone Number [facility]OC [facility] [address] [place] [address], [facility] PCSM [facility] POC [address] [place] [address] * (ABNORMAL) Glucose, POCT (09/25/2022 7:31 AM LIBRARY MONITOR) Glucose, POCT, B 268(H) 70 - 140 mg/dL 09/25/2022 7:37 AM LIBRARY MONITOR PCLX Last Intake NPO 09/25/2022 7:37 AM LIBRARY MONITOR PCLX Blood 09/25/2022 7:31 AM LIBRARY MONITOR 09/25/2022 7:37 AM LIBRARY MONITOR Unknown Provider LAB POCT ORDERABLES- MANUAL POC [facility] SERVICES [address] [place] [address], [facility] PCLX [facility] POC [address] [place] [address] * (ABNORMAL) CBC with Differential, Blood (09/25/2022 6:40 AM LIBRARY MONITOR) Hemoglobin 14.2 13.2 - 16.6 g/dL 09/25/2022 7:30 AM LIBRARY MONITOR DTL Hematocrit 43.6 38.3 - 48.6 % 09/25/2022 7:30 AM LIBRARY MONITOR DTL Erythrocytes 5.26 4.35 - 5.65 x10(12)/L 09/25/2022 7:30 AM LIBRARY MONITOR DTL MCV 82.9 78.2 - 97.9 fL 09/25/2022 7:30 AM LIBRARY MONITOR DTL RBC Distrib Width 14.3 11.8 - 14.5 % 09/25/2022 7:30 AM LIBRARY MONITOR DTL Platelet Count 395(H) 135 - 317 x10(9)/L 09/25/2022 7:30 AM LIBRARY MONITOR DTL Leukocytes 9.0 3.4 - 9.6 x10(9)/L 09/25/2022 7:30 AM LIBRARY MONITOR DTL Neutrophils 6.34 1.56 - 6.45 x10(9)/L 09/25/2022 7:30 AM LIBRARY MONITOR DTL Lymphocytes 1.45 0.95 - 3.07 x10(9)/L 09/25/2022 7:30 AM LIBRARY MONITOR DTL Monocytes 1.10(H) 0.26 - 0.81 x10(9)/L 09/25/2022 7:30 AM LIBRARY MONITOR DTL Eosinophils 0.06 0.03 - 0.48 x10(9)/L 09/25/2022 7:30 AM LIBRARY MONITOR DTL Basophils 0.04 0.01 - 0.08 x10(9)/L 09/25/2022 7:30 AM LIBRARY MONITOR DTL Blood (Blood, Venous) 09/25/2022 6:40 AM LIBRARY MONITOR 09/25/2022 7:14 AM LIBRARY MONITOR Caron Thompson M.D. LAB BLOOD ADD-ON Performing Organization Address [facility] Co de Phone Number [facility] [address] [place] [address], [facility] DTL [facility] [address] [place] [address] * (ABNORMAL) Basic Metabolic Panel (09/25/2022 6:40 AM LIBRARY MONITOR) Potassium, S 4.1 3.6 - 5.2 mmol/L 09/25/2022 7:56 AM LIBRARY MONITOR DTL Sodium, S 138 135 - 145 mmol/L 09/25/2022 7:56 AM LIBRARY MONITOR DTL Chloride, S 99 98 - 107 mmol/L 09/25/2022 7:56 AM LIBRARY MONITOR DTL Bicarbonate, S 26 22 - 29 mmol/L 09/25/2022 7:56 AM LIBRARY MONITOR DTL Anion Gap 13 7 - 15 09/25/2022 7:56 AM LIBRARY MONITOR DTL BUN (Blood Urea Nitrogen), S 25(H) 8 - 24 mg/dL 09/25/2022 7:56 AM LIBRARY MONITOR DTL Creatinine 0.80 0.74 - 1.35 mg/dL 09/25/2022 7:56 AM LIBRARY MONITOR DTL Estimated GFR (eGFR) >90 >=60 mL/min/BSA 09/25/2022 7:56 AM LIBRARY MONITOR DTL Comment: Estimated GFR calculated using the 2020 CKD_EPI creatinine equation. Calcium, Total, S 9.2 8.8 - 10.2 mg/dL 09/25/2022 7:56 AM LIBRARY MONITOR DTL Glucose, S 251(H) 70 - 140 mg/dL 09/25/2022 7:56 AM LIBRARY MONITOR DTL Blood (Blood, Venous) 09/25/2022 6:40 AM LIBRARY MONITOR 09/25/2022 7:35 AM LIBRARY MONITOR Caron Thompson M.D. LAB BLOOD ADD-ON [facility] [address] [place] [address], [place] DTL [facility] [address] [place] [address] * (ABNORMAL) Glucose, POCT (09/24/2022 9:21 PM LIBRARY MONITOR) Glucose, POCT, B 144(H) 70 - 140 mg/dL 09/24/2022 9:26 PM LIBRARY MONITOR PCLX Site Capillary 09/24/2022 9:26 PM LIBRARY MONITOR PCLX Last Intake 3-4 hours 09/24/2022 9:26 PM LIBRARY MONITOR PCLX Blood 09/24/2022 9:21 PM LIBRARY MONITOR 09/24/2022 9:26 PM LIBRARY MONITOR Unknown Provider LAB POCT ORDERABLES- MANUAL Performing Organization Address [facility]/ZIP Co de Phone Number POC [facility] [address] [place] [address], [place] PCLX [facility] POC [address] [place] [address] * (ABNORMAL) Glucose, POCT (09/24/2022 4:40 PM LIBRARY MONITOR) Glucose, POCT, B 203(H) 70 - 140 mg/dL 09/24/2022 5:28 PM LIBRARY MONITOR PCLX Last Intake 3-4 hours 09/24/2022 5:28 PM LIBRARY MONITOR PCLX Blood 09/24/2022 4:40 PM LIBRARY MONITOR 09/24/2022 5:28 PM LIBRARY MONITOR Unknown Provider LAB POCT ORDERABLES- MANUAL Performing Organization Address City/[facility]/ZIP Co de Phone Number POC [facility] [address] [place] [address], [place] PCLX [facility] POC [address] [place] [address] * (ABNORMAL) Glucose, POCT (09/24/2022 11:36 AM LIBRARY MONITOR) Glucose, POCT, B 286(H) 70 - 140 mg/dL 09/24/2022 11:41 AM LIBRARY MONITOR PCLX Last Intake 1-2 hours 09/24/2022 11:41 AM LIBRARY MONITOR PCLX Blood 09/24/2022 11:3 6 AM LIBRARY MONITOR 09/24/2022 11:41 AM LIBRARY MONITOR Unknown Provider LAB POCT ORDERABLES- MANUAL POC [facility] [address] [place] [address], [facility] PCLX [facility] POC [address] [place] [address] * (ABNORMAL) Glucose, POCT (09/24/2022 8:10 AM LIBRARY MONITOR) Glucose, POCT, B 177(H) 70 - 140 mg/dL 09/24/2022 8:16 AM LIBRARY MONITOR PCLX Last Intake > 4 hours 09/24/2022 8:16 AM LIBRARY MONITOR PCLX Blood 09/24/2022 8:10 AM LIBRARY MONITOR 09/24/2022 8:16 AM LIBRARY MONITOR Unknown Provider LAB POCT ORDERABLES- MANUAL POC [facility] [address] [place] [address], [facility] PCLX [facility] POC [address] [place] [address] * (ABNORMAL) CBC with Differential, Blood (09/24/2022 5:51 AM LIBRARY MONITOR) Pathologist [facility] Hemoglobin 13.7 13.2 - 16.6 g/dL 09/24/2022 6:37 AM LIBRARY MONITOR DTL Hematocrit 43.0 38.3 - 48.6 % 09/24/2022 6:37 AM LIBRARY MONITOR DTL Erythrocytes 5.20 4.35 - 5.65 x10(12)/L 09/24/2022 6:37 AM LIBRARY MONITOR DTL MCV 82.7 78.2 - 97.9 fL 09/24/2022 6:37 AM LIBRARY MONITOR DTL RBC Distrib Width 14.4 11.8 - 14.5 % 09/24/2022 6:37 AM LIBRARY MONITOR DTL Platelet Count 350(H) 135 - 317 x10(9)/L 09/24/2022 6:37 AM LIBRARY MONITOR DTL Leukocytes 8.9 3.4 - 9.6 x10(9)/L 09/24/2022 6:37 AM LIBRARY MONITOR DTL Neutrophils 6.11 1.56 - 6.45 x10(9)/L 09/24/2022 6:37 AM LIBRARY MONITOR DTL Lymphocytes 1.66 0.95 - 3.07 x10(9)/L 09/24/2022 6:37 AM LIBRARY MONITOR DTL Monocytes 1.06(H) 0.26 - 0.81 x10(9)/L 09/24/2022 6:37 AM LIBRARY MONITOR DTL Eosinophils 0.06 0.03 - 0.48 x10(9)/L 09/24/2022 6:37 AM LIBRARY MONITOR DTL Basophils 0.04 0.01 - 0.08 x10(9)/L 09/24/2022 6:37 AM LIBRARY MONITOR DTL Blood (Blood, Venous) 09/24/2022 5:51 AM LIBRARY MONITOR 09/24/2022 6:26 AM LIBRARY MONITOR Caron Thompson M.D. LAB BLOOD ADD-ON [facility] [address] [address], [facility] [address] * Basic Metabolic Panel (09/24/2022 5:51 AM LIBRARY MONITOR) Pathologist [facility] Potassium, S 3.9 3.6 - 5.2 mmol/L 09/24/2022 7:08 AM LIBRARY MONITOR DTL Sodium, S 140 135 - 145 mmol/L 09/24/2022 7:08 AM LIBRARY MONITOR DTL Chloride, S 101 98 - 107 mmol/L 09/24/2022 7:08 AM LIBRARY MONITOR DTL Bicarbonate, S 26 22 - 29 mmol/L 09/24/2022 7:08 AM LIBRARY MONITOR DTL Anion Gap 13 7 - 15 09/24/2022 7:08 AM LIBRARY MONITOR DTL BUN (Blood Urea Nitrogen), S 18 8 - 24 mg/dL 09/24/2022 7:08 AM LIBRARY MONITOR DTL Creatinine 0.79 0.74 - 1.35 mg/dL 09/24/2022 7:08 AM LIBRARY MONITOR DTL Estimated GFR (eGFR) >90 >=60 mL/min/BSA 09/24/2022 7:08 AM LIBRARY MONITOR DTL Comment: Estimated GFR calculated using the 2020 CKD_EPI creatinine equation. Calcium, Total, S 8.8 8.8 - 10.2 mg/dL 09/24/2022 7:08 AM LIBRARY MONITOR DTL Glucose, S 139 70 - 140 mg/dL 09/24/2022 7:08 AM LIBRARY MONITOR DTL Blood (Blood, Venous) 09/24/2022 5:51 AM LIBRARY MONITOR 09/24/2022 6:48 AM LIBRARY MONITOR Caron Thompson M.D. LAB BLOOD ADD-ON [facility] [address] [place] [address], [facility] DTL [facility] [address] [place] [address] * Glucose, POCT (09/23/2022 9:31 PM LIBRARY MONITOR) Glucose, POCT, B 111 70 - 140 mg/dL 09/23/2022 9:34 PM LIBRARY MONITOR PCLX Site Capillary 09/23/2022 9:34 PM LIBRARY MONITOR PCLX Last Intake 3-4 hours 09/23/2022 9:34 PM LIBRARY MONITOR PCLX Blood 09/23/2022 9:31 PM LIBRARY MONITOR 09/23/2022 9:34 PM LIBRARY MONITOR Unknown Provider LAB POCT ORDERABLES- MANUAL POC [facility] [address] [place] [address], [facility] PCLX [facility] POC [address] [place] [address] * Glucose, POCT (09/23/2022 5:06 PM LIBRARY MONITOR) Glucose, POCT, B 103 70 - 140 mg/dL 09/23/2022 5:08 PM LIBRARY MONITOR PCLX Blood 09/23/2022 5:06 PM LIBRARY MONITOR 09/23/2022 5:08 PM LIBRARY MONITOR Unknown Provider LAB POCT ORDERABLES- MANUAL Performing Organization Address City/[facility]/ZIP Co de Phone Number POC [facility] [address] [place] [address], [facility] PCLX [facility] POC [address] [place] [address] * (ABNORMAL) Glucose, POCT (09/23/2022 11:27 AM LIBRARY MONITOR) Glucose, POCT, B 325(H) 70 - 140 mg/dL 09/23/2022 11:32 AM LIBRARY MONITOR PCLX Site Capillary 09/23/2022 11:32 AM LIBRARY MONITOR PCLX Last Intake 3-4 hours 09/23/2022 11:32 AM LIBRARY MONITOR PCLX Blood 09/23/2022 11:2 7 AM LIBRARY MONITOR 09/23/2022 11:32 AM LIBRARY MONITOR Unknown Provider LAB POCT ORDERABLES- MANUAL Performing Organization Address [facility] Co de Phone Number [facility] SERVICES [address] [place] [address], [place] PCLX [facility] POC [address] [place] [address] * (ABNORMAL) Glucose, POCT (09/23/2022 7:35 AM LIBRARY MONITOR) Glucose, POCT, B 214(H) 70 - 140 mg/dL 09/23/2022 7:38 AM LIBRARY MONITOR PCLX Site Capillary 09/23/2022 7:38 AM LIBRARY MONITOR PCLX Last Intake > 4 hours 09/23/2022 7:38 AM LIBRARY MONITOR PCLX Blood 09/23/2022 7:35 AM LIBRARY MONITOR 09/23/2022 7:38 AM LIBRARY MONITOR Unknown Provider LAB POCT ORDERABLES- MANUAL Performing Organization Address City/[facility] Co de Phone Number POC [facility] [address] [place] [address], [place] PCLX [facility] POC [address] [place] [address] * (ABNORMAL) Glucose, POCT (09/23/2022 3:08 AM LIBRARY MONITOR) Glucose, POCT, B 223(H) 70 - 140 mg/dL 09/23/2022 3:11 AM LIBRARY MONITOR PCLX Site Capillary 09/23/2022 3:11 AM LIBRARY MONITOR PCLX Blood 09/23/2022 3:08 AM LIBRARY MONITOR 09/23/2022 3:11 AM LIBRARY MONITOR Unknown Provider LAB POCT ORDERABLES- MANUAL POC [facility] [address] [place] [address], [facility] PCLX [facility] POC [address] [place] [address] * (ABNORMAL) CBC with Differential, Blood (09/23/2022 3:06 AM LIBRARY MONITOR) Hemoglobin 13.4 13.2 - 16.6 g/dL 09/23/2022 5:14 AM LIBRARY MONITOR DTL Hematocrit 42.0 38.3 - 48.6 % 09/23/2022 5:14 AM LIBRARY MONITOR DTL Erythrocytes 5.08 4.35 - 5.65 x10(12)/L 09/23/2022 5:14 AM LIBRARY MONITOR DTL MCV 82.7 78.2 - 97.9 fL 09/23/2022 5:14 AM LIBRARY MONITOR DTL RBC Distrib Width 14.4 11.8 - 14.5 % 09/23/2022 5:14 AM LIBRARY MONITOR DTL Platelet Count 362(H) 135 - 317 x10(9)/L 09/23/2022 5:14 AM LIBRARY MONITOR DTL Leukocytes 8.8 3.4 - 9.6 x10(9)/L 09/23/2022 5:14 AM LIBRARY MONITOR DTL Neutrophils 6.00 1.56 - 6.45 x10(9)/L 09/23/2022 5:14 AM LIBRARY MONITOR DTL Lymphocytes 1.77 0.95 - 3.07 x10(9)/L 09/23/2022 5:14 AM LIBRARY MONITOR DTL Monocytes 0.93(H) 0.26 - 0.81 x10(9)/L 09/23/2022 5:14 AM LIBRARY MONITOR DTL Eosinophils 0.07 0.03 - 0.48 x10(9)/L 09/23/2022 5:14 AM LIBRARY MONITOR DTL Basophils 0.03 0.01 - 0.08 x10(9)/L 09/23/2022 5:14 AM LIBRARY MONITOR DTL Blood (Blood, Venous) 09/23/2022 3:06 AM LIBRARY MONITOR 09/23/2022 5:03 AM LIBRARY MONITOR Caron Thompson M.D. LAB BLOOD ADD-ON [facility] [address] [place] [address], [facility] DTL [facility] [address] [place] [address] * (ABNORMAL) Basic Metabolic Panel (09/23/2022 3:06 AM LIBRARY MONITOR) Pathologist [facility] Potassium, S 4.1 3.6 - 5.2 mmol/L 09/23/2022 5:45 AM LIBRARY MONITOR DTL Sodium, S 138 135 - 145 mmol/L 09/23/2022 5:45 AM LIBRARY MONITOR DTL Chloride, S 101 98 - 107 mmol/L 09/23/2022 5:45 AM LIBRARY MONITOR DTL Bicarbonate, S 25 22 - 29 mmol/L 09/23/2022 5:45 AM LIBRARY MONITOR DTL Anion Gap 12 7 - 15 09/23/2022 5:45 AM LIBRARY MONITOR DTL BUN (Blood Urea Nitrogen), S 18 8 - 24 mg/dL 09/23/2022 5:45 AM LIBRARY MONITOR DTL Creatinine 0.69(L) 0.74 - 1.35 mg/dL 09/23/2022 5:45 AM LIBRARY MONITOR DTL Estimated GFR (eGFR) >90 >=60 mL/min/BSA 09/23/2022 5:45 AM LIBRARY MONITOR DTL Comment: Estimated GFR calculated using the 2020 CKD_EPI creatinine equation. Calcium, Total, S 8.7(L) 8.8 - 10.2 mg/dL 09/23/2022 5:45 AM LIBRARY MONITOR DTL Glucose, S 220(H) 70 - 140 mg/dL 09/23/2022 5:45 AM LIBRARY MONITOR DTL Blood (Blood, Venous) 09/23/2022 3:06 AM LIBRARY MONITOR 09/23/2022 5:24 AM LIBRARY MONITOR Caron Thompson M.D. LAB BLOOD ADD-ON [facility] [address] [place] [address], [facility] [address] [place] [address] * (ABNORMAL) Lipid Panel (09/23/2022 3:06 AM LIBRARY MONITOR) Triglycerides 85 mg/dL 09/23/2022 5:45 AM LIBRARY MONITOR DTL Comment: ----REFERENCE VALUE---- Normal: <150 mg/dL Borderline High: 150-199 mg/dL High: 200-499 mg/dL Very High: > or =500 mg/dL Cholesterol, Total 105 mg/dL 2022 5:45 AM LIBRARY MONITOR DTL Comment: ----REFERENCE VALUE---- Desirable: < 200 mg/dL Borderline High: 200 - 239 mg/dL High: > or = 240 mg/dL Cholesterol, LDL, Calculated 54 mg/dL 09/23/2022 5:45 AM LIBRARY MONITOR DTL Comment: ----REFERENCE VALUE---- Desirable: <100 mg/dL Above Desirable: 100-129 mg/dL Borderline High: 130-159 mg/dL High: 160-189 mg/dL Very High: >=190 mg/dL ----ADDITIONAL INFORMATION---- LDL cholesterol calculated using the V[place]ales/NIH equation. Cholesterol, HDL, S 34(L) >=40 mg/dL 09/23/2022 5:45 AM LIBRARY MONITOR DTL Cholesterol, Non-HDL, Calculated 71 mg/dL 09/23/2022 5:45 AM LIBRARY MONITOR DTL Comment: ----REFERENCE VALUE---- Desirable: <130 mg/dL Above Desirable: 130-159 mg/dL Borderline High: 160-189 mg/dL High: 190-219 mg/dL Very High: > or =220 mg/dL Fasting (8 HR or more) Unknown 09/23/2022 5:24 AM LIBRARY MONITOR DTL Blood (Blood, Venous) 09/23/2022 3:06 AM LIBRARY MONITOR 09/23/2022 5:24 AM LIBRARY MONITOR Caron Thompson M.D. LAB BLOOD ADD-ON Performing Organization Address City/[facility]/ZIP Co de Phone Number [facility] [address] [place] [address], [facility] [address] [place] [address] * (ABNORMAL) Hemoglobin A1c (09/23/2022 3:03 AM LIBRARY MONITOR) Hemoglobin A1c, B 10.1(H) 4.0 - 5.6 % 09/23/2022 7:28 AM LIBRARY MONITOR DT Comment: Hemoglobin A1c values greater than or equal to 6.5 percent are diagnostic for diabetes mellitus. ??Diagnosis should be confirmed by repeat testing. ??In diabetic patients, HbA1c goals should be discussed with healthcare provider. Blood (Blood, Venous) 09/23/2022 3:03 AM LIBRARY MONITOR 09/23/2022 7:20 AM LIBRARY MONITOR Jerardo Dela Cruz M.D. LAB BLOOD ADD-ON Performing Organization Address [facility]/ZIP Co de Phone Number [facility] [address] [place] [address], [facility] [address] [place] [address] * (ABNORMAL) Glucose, POCT (09/22/2022 9:15 PM LIBRARY MONITOR) Glucose, POCT, B 259(H) 70 - 140 mg/dL 09/22/2022 9:19 PM LIBRARY MONITOR PCLX Site Capillary 09/22/2022 9:19 PM LIBRARY MONITOR PCLX Blood 09/22/2022 9:15 PM LIBRARY MONITOR 09/22/2022 9:19 PM LIBRARY MONITOR Unknown Provider LAB POCT ORDERABLES- MANUAL Performing Organization Address City/[facility]/ZIP Co de Phone Number POC [facility] SERVICES [address] [place] [address], [facility] PCLX [facility] POC [address] [place] [address] * (ABNORMAL) Glucose, POCT (09/22/2022 5:04 PM LIBRARY MONITOR) Glucose, POCT, B 205(H) 70 - 140 mg/dL 09/22/2022 5:09 PM LIBRARY MONITOR PCLX Site Capillary 09/22/2022 5:09 PM LIBRARY MONITOR PCLX Last Intake > 4 hours 09/22/2022 5:09 PM LIBRARY MONITOR PCLX Blood 09/22/2022 5:04 PM LIBRARY MONITOR 09/22/2022 5:09 PM LIBRARY MONITOR Unknown Provider LAB POCT ORDERABLES- MANUAL POC [facility] SERVICES [address] [place] [address], [facility] PCLX [facility] POC [address] [place] [address] * (TTE) 2D ECHO DOPPLER COLOR AND CONTRAST (09/22/2022 4:32 PM LIBRARY MONITOR) Pathologist [facility] Ejection Fraction 40 MC CV EIMS Wall Motion Score Index 1.44 MC CV EIMS LV End-Diastolic Volume 136 MC CV EIMS LV End-Systolic Volume 82 MC CV EIMS MV E Velocity 0.6 MC CV EIMS MV A Velocity 0.9 MC CV EIMS MV E/A 0.67 MC CV EIMS MV e' Velocity Medial 0.07 MC CV EIMS MV e' Velocity Lateral 0.06 MC CV EIMS MV E/e' Medial 8.6 MC CV EIMS MV E/e' Lateral 10 MC CV EIMS Left ventricular stroke volume index 53 MC CV EIMS Cardiac Output 6.54 MC CV EIMS Cardiac Index 3.22 MC CV EIMS Tricuspid Annular S? 0.11 MC CV EIMS AV mean gradient 7 MC CV EIMS Aortic valve area 2.71 MC CV EIMS Aortic Valve Dimensionless Index 0.6 MC CV EIMS LA Volume Index 20 MC CV EIMS Aortic Valve Systolic Peak Velocity 1.8 MC CV EIMS Anatomical Region Laterality Modality Echocardiography 09/22/2022 3:02 PM LIBRARY MONITOR Impressions 09/22/2022 5:07 PM LIBRARY MONITOR Echo performed at the patient's bedside. There are no previous ??echocardiograms available for comparison. LEFT VENTRICLE:Normal left ventricular [...] to exclude thrombus in this location. No ??pericardial effusion. Attempts were made to optimize the echocardiographic images and two or more left ventricular segments were not visualized adequately to evaluate cardiac structure. The patient's current allergies and medications have been screened. Intravenous Lumason ultrasound enhancement agent(s) administered to enhance endocardial border definition. Imaging enhancement agent administered per Echocardiography Contrast Administration Protocol Reference Document [id number]. Patient met an inclusion criterion and did not have contraindications in screening sections. For the complete report, see the Order-Level Documents. Narrative 09/22/2022 5:07 PM LIBRARY MONITOR For the complete report, see the Order-Level Documents. Hemodynamics Heart Rate: 61 BPM Blood Pressure: [...] mean Doppler gradient 7 mmHg. 6. No ??pericardial effusion. Comments Although the aortic valve calcification does not look severe and there does not appear to be significant aortic stenosis, not all acoustic windows were used to assess the severity of the aortic stenosis. Clinical /physical examination correlation recommended. ??RBM Procedure Note Bradford Chen M.D. - 09/22/2022 For the complete report, see the Order-Level Documents. Hemodynamics Heart Rate: 61 BPM Blood Pressure: 138 / 81 mmHg ECG: Sinus rhythm with ectopics Final Impressions 1. Normal left ventricular chamber size, regional wall motionabnormalities were present (see wall motion graphics), calculated 2-Dbiplane volumetric ejection fraction of 40%. 2. Grade 1/3 left ventricular diastolic dysfunction, consistent with lowto normal left ventricular filling pressure. 3. Normal right ventricular chamber size, normal systolic function, unableto detect peak tricuspid regurgitation velocity for pulmonary arterysystolic pressure calculation. 4. Calcified aortic valve. 5. Aortic valve systolic mean Doppler gradient 7 mmHg. 6. No pericardial effusion. Comments Although the aortic valve calcification does not look severe and theredoes not appear to be significant aortic stenosis, not all acousticwindows were used to assess the severity of the aortic stenosis. Clinical/physical examination correlation recommended. RBM Findings Echo performed at the patient's bedside. There are no previousechocardiograms available for comparison. LEFT VENTRICLE:Normal left ventricular chamber size. Calculated 2-Dbiplane volumetric left ventricular ejection fraction of 40% with the useof ultrasound enhancing agent. Regional wall motion abnormalities werepresent (see wall motion graphics). Grade 1/3 left ventricular diastolicdysfunction, consistent with low to normal left ventricular fillingpressure. RIGHT VENTRICLE:Normal right ventricular chamber size. Normal rightventricular systolic function. Unable to detect peak tricuspidregurgitation velocity for pulmonary artery systolic pressurecalculation. ATRIA:Normal left atrial size. Left atrial volume index 20 ml/m2. Normalright atrial size by visual estimate. CARDIAC VALVES:Trileaflet aortic valve. Calcified aortic valve. Aorticvalve systolic mean Doppler gradient 7 mmHg. No aortic valveregurgitation. Thickened mitral valve. Trivial mitral valve regurgitation.Normal pulmonary valve. Normal tricuspid valve. Trivial tricuspid valveregurgitation. OTHER ECHO FINDINGS:Enlarged inferior vena cava size with no inspiratorycollapse. Ascending aorta not well visualized. Abdominal aortaincompletely visualized. No atrial level shunt by color flow imaging. Nointracardiac mass or thrombus, but the left atrial appendage cannot bevisualized adequately with transthoracic echo to exclude thrombus in thislocation. No pericardial effusion. Attempts were made to optimize theechocardiographic images and two or more left ventricular segments werenot visualized adequately to evaluate cardiac structure. The patient'scurrent allergies and medications have been screened. Intravenous Lumasonultrasound enhancement agent(s) administered to enhance endocardial borderdefinition. Imaging enhancement agent administered per EchocardiographyContrast Administration Protocol Reference Document [id number]. Patientmet an inclusion criterion and did not have contraindications in screeningsections. For the complete report, see the Order-Level Documents. Caron Thompson M.D. CV ECHO PROCEDURES * ECG 12 Lead (09/22/2022 1:41 PM LIBRARY MONITOR) Ventricular Rate ECG/Min 61 BPM MUSE DE Interval 166 ms MUSE QRSD Interval 130 ms MUSE QT Interval 456 ms MUSE QTC Interval 459 ms MUSE P [place] 29 degrees MUSE R [place] -42 degrees MUSE T Wave [place] -73 degrees MUSE 09/22/2022 1:41 PM LIBRARY MONITOR 09/22/2022 1:44 PM LIBRARY MONITOR Impressions MUSE - 09/22/2022 1:44 PM LIBRARY MONITOR Normal sinus rhythm Left axis deviation Non-specific intra-ventricular conduction delay T wave abnormality, consider inferolateral ischemia Nonspecific T wave abnormality When compared with ECG of 22-SEP-2022 13:13, Premature ventricular complexes are no longer present Reviewed by MIRIAM Olivia Narrative Procedure Note Kevin Bower M.D. - 09/22/2022 IMPRESSION: Normal sinus rhythm Left axis deviation Non-specific intra-ventricular conduction delay T wave abnormality, consider inferolateral ischemia Nonspecific T wave abnormality When compared with ECG of 22-SEP-2022 13:13, Premature ventricular complexes are no longer present Reviewed by MIRIAM Olivia Geetha Adler M.D. ECG ORDERABLES MUSE NA * (ABNORMAL) Glucose, POCT (09/22/2022 1:07 PM LIBRARY MONITOR) Glucose, POCT, B 261(H) 70 - 140 mg/dL 09/22/2022 1:21 PM LIBRARY MONITOR PCLX Blood 09/22/2022 1:07 PM LIBRARY MONITOR 09/22/2022 1:21 PM LIBRARY MONITOR Unknown Provider LAB POCT ORDERABLES- MANUAL Performing Organization Address [facility]/ZIP Co de Phone Number POC [facility] SERVICES [address] [place] [address], [place] PCLX [facility] POC [address] [place] [address] * (ABNORMAL) ACT (Activated Clotting Time), POCT (09/22/2022 11:38 AM LIBRARY MONITOR) Activated Clotting Time, POCT 178(H) 84 - 139 sec 09/22/2022 11:47 AM LIBRARY MONITOR PCSM Blood 09/22/2022 11:3 8 AM LIBRARY MONITOR 09/22/2022 11:47 AM LIBRARY MONITOR Unknown Provider LAB POCT ORDERABLES - DEVICE Performing Organization Address [facility] Co de Phone Number POC [facility] [address] [place] [address], [facility] PCSM [facility] POC [address] [place] [address] * ACT (Activated Clotting Time), POCT (09/22/2022 11:37 AM LIBRARY MONITOR) Pathologist [facility] Activated Clot Time, [place], POCT Collected DEFAULT 09/22/2022 11:37 AM LIBRARY MONITOR SMLX Blood (Blood, Venous) 09/22/2022 11:37 AM LIBRARY MONITOR 09/22/2022 11:37 AM LIBRARY MONITOR Caron Thompson M.D. LAB POCT ORDERABLE S - DEVICE Performing Organization Address [facility] Co de Phone Number [facility] [address] [place] [address], [facility] SMLX [facility] [address] [place] [address] * (ABNORMAL) Glucose, POCT (09/22/2022 10:07 AM LIBRARY MONITOR) Glucose, POCT, B 267(H) 70 - 140 mg/dL 09/22/2022 11:02 AM LIBRARY MONITOR PCLX Site Capillary 09/22/2022 11:02 AM LIBRARY MONITOR PCLX Last Intake NPO 09/22/2022 11:02 AM LIBRARY MONITOR PCLX Blood 09/22/2022 10:0 7 AM LIBRARY MONITOR 09/22/2022 11:02 AM LIBRARY MONITOR Unknown Provider LAB POCT ORDERABLES- MANUAL POC [facility] LAB SERVICES [address] [place] [address], [facility] PCLX [facility] [address] [place] [address] * ACT (Activated Clotting Time), POCT (09/22/2022 9:38 AM LIBRARY MONITOR) Pathologist [facility] Activated Clot Time, [place], POCT Collected DEFAULT 09/22/2022 9:38 AM LIBRARY MONITOR SMLX Blood (Blood, Venous) 09/22/2022 9:38 AM LIBRARY MONITOR 09/22/2022 9:38 AM LIBRARY MONITOR Caron Thompson M.D. LAB POCT ORDERABLE S - DEVICE Performing Organization Address [facility]/ZIP Co de Phone Number [facility] [address] [place] [address], [facility] SMLX [facility] [address] [place] [address] * (ABNORMAL) ACT (Activated Clotting Time), POCT (09/22/2022 9:35 AM LIBRARY MONITOR) Pathologist [facility] Activated Clotting Time, POCT 227(H) 84 - 139 sec 09/22/2022 9:45 AM LIBRARY MONITOR PCSM Blood 09/22/2022 9:35 AM LIBRARY MONITOR 09/22/2022 9:45 AM LIBRARY MONITOR Unknown Provider LAB POCT ORDERABLES - DEVICE Performing Organization Address City/[facility]/ZIP Co de Phone Number POC [facility] [address] [place] [address], [facility] POC [address] [place] [address] * ECG 12 Lead (09/22/2022 9:12 AM LIBRARY MONITOR) Ventricular Rate ECG/Min 71 BPM MUSE DE Interval 166 ms MUSE QRSD Interval 126 ms MUSE QT Interval 452 ms MUSE QTC Interval 491 ms MUSE P [place] 67 degrees MUSE R [place] -18 degrees MUSE T Wave [place] -23 degrees MUSE 09/22/2022 9:12 AM LIBRARY MONITOR 09/22/2022 9:32 AM LIBRARY MONITOR Impressions MUSE - 09/22/2022 9:32 AM LIBRARY MONITOR Sinus rhythm Premature ventricular complexes Non-specific intra-ventricular conduction delay T wave abnormality, consider anterolateral ischemia Nonspecific ST abnormality When compared with ECG of 06:43:06 Premature ventricular complexes are now present ST less elevated in Lateral leads ST depression in Anteroseptal leads Reviewed by MIRIAM Olivia Narrative Procedure Note Kevin Bower M.D. - 09/22/2022 IMPRESSION: Sinus rhythm Premature ventricular complexes Non-specific intra-ventricular conduction delay T wave abnormality, consider anterolateral ischemia Nonspecific ST abnormality When compared with ECG of 06:43:06 Premature ventricular complexes are now present ST less elevated in Lateral leads ST depression in Anteroseptal leads Reviewed by MIRIAM Olivia Adrián Mayers M.D. ECG ORDERABLES MUSE NA * (ABNORMAL) Troponin T, 2H/6H, 5th Gen (09/22/2022 9:06 AM LIBRARY MONITOR) Troponin T, 2 hr, 5th gen 1704(H) <=15 ng/L 09/22/2022 9:33 AM LIBRARY MONITOR STMA Comment:Consider acute myoca rdial injury 2H Delta 1637(A) ng/L 09/22/2022 9:33 AM LIBRARY MONITOR STMA 2H Delta Interp Changing(A ) 09/22/2022 9:33 AM LIBRARY MONITOR [facility] Comment:Evaluate for acute m yocardial injury Troponin T, 6 hr, 5th gen 4533(H) <=15 ng/L 09/22/2022 1:34 PM LIBRARY MONITOR [facility] Comment:Consider acute myoca rdial injury 6H Delta 4466(A) ng/L 09/22/2022 1:34 PM LIBRARY MONITOR [facility] 6H Delta Interp Changing(A ) 09/22/2022 1:34 PM LIBRARY MONITOR [facility] Comment:Evaluate for acute m yocardial injury Blood (Blood, Venous) 09/22/2022 9:06 AM LIBRARY MONITOR 09/22/2022 9:12 AM LIBRARY MONITOR Narrative [facility] - 09/22/2022 1:34 PM LIBRARY MONITOR Specimen Information: Specimen ID: [id number] Specimen Type: Blood Specimen Collection Start Date: 09/22/2022 ??9:06 AM Specimen Received Date: 09/22/2022 ??9:12 AM Specimen ID: [id number] Specimen Type: Blood Specimen Collection Start Date: 09/22/2022 ??1:07 PM Specimen Received Date: 09/22/2022 ??1:13 PM Adrián Mayers M.D. [place] [address], [facility] [address] [place] [address] * CORONARY ANGIOGRAPHY, PERCUTANEOUS CORONARY ANGIOPLASTY, STENT PLACEMENT (09/22/2022 8:35 AM LIBRARY MONITOR) Anatomical Region Laterality Modality X-Ray Angiograph y 09/22/2022 7:26 AM LIBRARY MONITOR Narrative 09/24/2022 8:36 AM LIBRARY MONITOR For the complete report, see the Order-Level Documents. PROCEDURE TYPES 1. ??CORONARY ANGIOGRAPHY 2. ??PERCUTANEOUS CORONARY ANGIOPLASTY 3. ??CORONARY STENT PLACEMENT FINAL DIAGNOSIS 1. ??ST-elevation myocardial infarction 2. ??Severe coronary artery atherosclerosis 3. ??Successful percutaneous coronary intervention with drug eluting stent [...] IOHEXOL 350 MG IODINE/ML INTRAVENOUS SOLUTION: 100mL For the complete report, see the Order-Level Documents. Mike Garcia M.D., Ph.D. CV CARDIAC CATH PROCEDURES * (ABNORMAL) ACT (Activated Clotting Time), POCT (09/22/2022 7:45 AM LIBRARY MONITOR) [facility] Activated Clotting Time, POCT 329(H) 84 - 139 sec 09/22/2022 7:51 AM LIBRARY MONITOR PCSM Blood 09/22/2022 7:45 AM LIBRARY MONITOR 09/22/2022 7:51 AM LIBRARY MONITOR Unknown Provider LAB POCT ORDERABLES - DEVICE POC [facility] [address] [place] [address], [facility] PCSM [facility] POC [address] [place] [address] * Critical Care (09/22/2022 7:12 AM LIBRARY MONITOR) Narrative Adrián Mayers M.D. - 09/22/2022 7:12 AM LIBRARY MONITOR Adrián Mayers M.D. ? 09/22/2022 ??7:13 AM Critical Care Performed by: Adrián Mayers M.D. Authorized by: Adrián Mayers M.D. Critical care provider statement: Critical care total time (minutes): 30 Critical care was time spent personally by me on the following activities: blood draw for specimens, discussions with consultants, documenting in the patient chart, examination of patient, review of old charts, ordering and review of radiographic studies, ordering and review of laboratory studies, ordering and performing treatments and interventions and obtaining history from patient or surrogate Adrián Mayers M.D. PROCEDURE/MINOR GARCIA RGICAL ORDERABLES * DX Chest Portable 1 View (09/22/2022 6:58 AM LIBRARY MONITOR) Anatomical Region Laterality Modality Chest, Thoracic RST LOS, Tho racic ARZ LOS, Thoracic FLA LOS N/A Digital Radiography 09/22/2022 7:17 AM LIBRARY MONITOR Impressions 09/22/2022 8:20 AM LIBRARY MONITOR No comparison. Negative chest. Narrative 09/22/2022 8:20 AM LIBRARY MONITOR EXAM: ??DX CHEST PORTABLE 1 VIEW Procedure Note Raymundo Tobar M.D. - 09/22/2022 EXAM: DX CHEST PORTABLE 1 VIEW IMPRESSION: No comparison. Negative chest. Adrián Mayers M.D. IMG DIAGNOSTIC KAE GING PROCEDURES * Patient Status (09/22/2022 6:51 AM LIBRARY MONITOR) Pathologist [facility] FIO2 0.21 0.21=AIR 09/22/2022 6:57 AM LIBRARY MONITOR [facility] Spont. breaths/min 21 09/22/2022 6:57 AM LIBRARY MONITOR [facility] Blood 09/22/2022 6:51 AM LIBRARY MONITOR 09/22/2022 6:57 AM LIBRARY MONITOR Adrián Mayers M.D. LAB BLOOD NON ADD- ON [facility] [address] [place] [address], [facility] [address] [place] [address] * Lactate, B (09/22/2022 6:51 AM LIBRARY MONITOR) Pathologist [facility] Lactate, B 2.0 0.5 - 2.2 mmol/L 09/22/2022 7:03 AM LIBRARY MONITOR [facility] Blood (Blood, Venous) 09/22/2022 6:51 AM LIBRARY MONITOR 09/22/2022 6:57 AM LIBRARY MONITOR Adrián Mayers M.D. LAB BLOOD NON ADD- ON Performing Organization Address City/[facility] Co de Phone Number [facility] [address] [place] [address], [facility] [address] [place] [address] * Blood Gas without Coox, Venous (09/22/2022 6:51 AM LIBRARY MONITOR) Pathologist [facility] pO2, Venous 25 Not applicable mm Hg 09/22/2022 7:03 AM LIBRARY MONITOR [facility] pCO2, Venous 48 41 - 51 mm Hg 7:03 AM LIBRARY MONITOR [facility] pH, Venous 7.37 7.32 - 7.43 pH 09/22/2022 7:03 AM LIBRARY MONITOR [facility] Base Excess, Venous 2 Not applicable mmol/L 09/22/2022 7:03 AM LIBRARY MONITOR [facility] HCO3, Venous 27 Not applicable mmol/L 09/22/2022 7:03 AM LIBRARY MONITOR [facility] Sample Site, Venous Venipunct 09/22/2022 7:03 AM LIBRARY MONITOR [facility] Blood (Blood, Venous) 09/22/2022 6:51 AM LIBRARY MONITOR 09/22/2022 6:57 AM LIBRARY MONITOR Adrián Mayers M.D. LAB BLOOD NON ADD- ON [facility] [address] [place] [address], [facility] [address] [place] [address] * Type and Screen (with reflex Antibody ID) (09/22/2022 6:50 AM LIBRARY MONITOR) ABORh O Pos Not applicable 09/22/2022 10:18 AM LIBRARY MONITOR STRM Antibody Screen Negative Negative 09/22/2022 10:32 AM LIBRARY MONITOR STRM Type & Screen Expiration 09/25/2022 23:59 09/22/2022 10:18 AM LIBRARY MONITOR STRM Testing Location Cristal DEFAULT 09/22/2022 8:54 AM LIBRARY MONITOR STRM Blood (Blood, Venous) 09/22/2022 6:50 AM LIBRARY MONITOR 09/22/2022 8:54 AM LIBRARY MONITOR Adrián Mayers M.D. LAB BLOOD BANK GABRIELA T ORDERABLES [facility] [address] [place] [address], [facility] STRM [facility] [address] [place] [address] * S-TSH (Thyroid-Stimulating Hormone - Sensitive) (09/22/2022 6:50 AM LIBRARY MONITOR) Pathologist [facility] TSH, Sensitive 2.7 0.3 - 4.2 mIU/L 09/22/2022 8:01 AM LIBRARY MONITOR DTL Blood (Blood, Venous) 09/22/2022 6:50 AM LIBRARY MONITOR 09/22/2022 7:33 AM LIBRARY MONITOR Adrián Mayers M.D. LAB BLOOD ADD-ON Performing Organization Address City/[facility]/ZIP Co de Phone Number [facility] [address] [place] [address], [facility] DTL [facility] [address] [place] [address] * (ABNORMAL) Troponin T, Baseline, 5th gen (09/22/2022 6:50 AM LIBRARY MONITOR) Pathologist [facility] Troponin T, Baseline, 5th gen 67(H) <=15 ng/L 09/22/2022 7:16 AM LIBRARY MONITOR [facility] Blood (Blood, Venous) 09/22/2022 6:50 AM LIBRARY MONITOR 09/22/2022 6:57 AM LIBRARY MONITOR Adrián Mayers M.D. LAB BLOOD TROPONIN [facility] [address] [place] [address], [facility] STMA [facility] [address] [place] [address] * Sedimentation Rate (09/22/2022 6:50 AM LIBRARY MONITOR) Pathologist [facility] Sedimentation Rate, B 8 3 - 28 mm/h 09/22/2022 8:08 AM LIBRARY MONITOR DTL Blood (Blood, Venous) 09/22/2022 6:50 AM LIBRARY MONITOR 09/22/2022 7:13 AM LIBRARY MONITOR Adrián Mayers M.D. LAB BLOOD ADD-ON Performing Organization Address [facility] Co de Phone Number [facility] [address] [place] [address], [facility] [address] [place] [address] * (ABNORMAL) Prothrombin Time (PT) (09/22/2022 6:50 AM LIBRARY MONITOR) Pathologist [facility] Prothrombin Time, P 13.0(H) 9.4 - 12.5 sec 09/22/2022 7:06 AM LIBRARY MONITOR ST[facility] INR 1.2 0.9 - 1.1 09/22/2022 7:06 AM LIBRARY MONITOR [facility] Comment: ----ADDITIONAL INFORMATION---- Standard intensity warfarin therapeutic range: 2.0 to 3.0 ?? High intensity warfarin therapeutic range: 2.5 to 3.5 Blood (Blood, Venous) 09/22/2022 6:50 AM LIBRARY MONITOR 09/22/2022 6:57 AM LIBRARY MONITOR Adrián Mayers M.D. LAB BLOOD ADD-ON [facility] [address] [place] [address], [facility] STMA [facility] [address] [place] [address] * NT-Pro B-Type Natriuretic Peptide (BNP) (09/22/2022 6:50 AM LIBRARY MONITOR) Pathologist [facility] NT-Pro BNP 62 <=540 pg/mL 09/22/2022 7:22 AM LIBRARY MONITOR [facility] Comment: NT-proBNP values less than 300 pg/mL have a 99% negative predictive value for excluding acute congestive heart failure. A cutoff of 1200 pg/mL for patients with an eGFR<60 yields a diagnostic sensitivity and specificity of 89% and 72% for acute congestive heart failure. A diagnostic NT-proBNP cutoff of 900 pg/mL has been suggested in adults 50-75 years of age in the absence of renal failure. Blood (Blood, Venous) 09/22/2022 6:50 AM LIBRARY MONITOR 09/22/2022 6:57 AM LIBRARY MONITOR Adrián Mayers M.D. LAB BLOOD ADD-ON Performing Organization Address [facility] Co de Phone Number [address] [place] [address] * Lipase (09/22/2022 6:50 AM LIBRARY MONITOR) Lipase, S 16 13 - 60 U/L 09/22/2022 8: 01 AM LIBRARY MONITOR DTL Blood (Blood, Venous) 09/22/2022 6:50 AM LIBRARY MONITOR 09/22/2022 7:33 AM LIBRARY MONITOR Adrián Mayers M.D. LAB BLOOD ADD-ON Performing Organization Address [facility] Co de Phone Number [facility] [address] [place] [address], [facility] DTL [address] [address] * (ABNORMAL) Hepatic Function Panel (09/22/2022 6:50 AM LIBRARY MONITOR) Bilirubin, Total, S 0.7 <=1.2 mg/dL 09/22/2022 8:01 AM LIBRARY MONITOR DTL Bilirubin, Direct, S 0.3 0.0 - 0.3 mg/dL 09/22/2022 8:01 AM LIBRARY MONITOR DTL Aspartate Aminotransferase (AST), S 35 8 - 48 U/L 09/22/2022 8:01 AM LIBRARY MONITOR DTL Alanine Aminotransferase (ALT), S 23 7 - 55 U/L 09/22/2022 8:01 AM LIBRARY MONITOR DTL Alkaline Phosphatase, S 138(H) 40 - 129 U/L 09/22/2022 8:01 AM LIBRARY MONITOR DTL Albumin, S 4.2 3.5 - 5.0 g/dL 09/22/2022 8:01 AM LIBRARY MONITOR DTL Protein, Total, S 7.6 6.3 - 7.9 g/dL 09/22/2022 8:01 AM LIBRARY MONITOR DTL Blood (Blood, Venous) 09/22/2022 6:50 AM LIBRARY MONITOR 09/22/2022 7:33 AM LIBRARY MONITOR Adrián Mayers M.D. LAB BLOOD ADD-ON Performing Organization Address City/[facility] Co de Phone Number [facility] [address] [place] [address], [facility] [place] [address] * D-Dimer (09/22/2022 6:50 AM LIBRARY MONITOR) Pathologist [facility] D-Dimer, P 427 <=500 ng/mL FEU 09/22/2022 7:08 AM LIBRARY MONITOR [facility] Comment: ----ADDITIONAL INFORMATION---- D-dimer values less than or equal to 500 ng/mL fibrinogen equivalent units (FEU) may be used in conjunction with clinical pre-test probability to exclude deep vein thrombosis (DVT) and/or pulmonary embolism (PE). Blood (Blood, Venous) 09/22/2022 6:50 AM LIBRARY MONITOR 09/22/2022 6:57 AM LIBRARY MONITOR Adrián Mayers M.D. LAB BLOOD ADD-ON [facility] [address] [place] [address], [place] [address] * (ABNORMAL) CBC with Differential, Blood (09/22/2022 6:50 AM LIBRARY MONITOR) Hemoglobin 14.8 13.2 - 16.6 g/dL 09/22/2022 7:00 AM LIBRARY MONITOR [facility] Hematocrit 46.2 38.3 - 48.6 % 09/22/2022 7:00 AM LIBRARY MONITOR ST[facility] Erythrocytes 5.49 4.35 - 5.65 x10(12)/L 09/22/2022 7:00 AM LIBRARY MONITOR [facility] MCV 84.2 78.2 - 97.9 fL 09/22/2022 7:00 AM LIBRARY MONITOR ST[facility] RBC Distrib Width 13.9 11.8 - 14.5 % 09/22/2022 7:00 AM LIBRARY MONITOR [facility] Platelet Count 353(H) 135 - 317 x10(9)/L 09/22/2022 7:00 AM LIBRARY MONITOR ST[facility] Leukocytes 9.6 3.4 - 9.6 x10(9)/L 09/22/2022 7:00 AM LIBRARY MONITOR STMA Neutrophils 7.65(H) 1.56 - 6.45 x10(9)/L 09/22/2022 7:00 AM LIBRARY MONITOR ST[facility] Lymphocytes 1.17 0.95 - 3.07 x10(9)/L 09/22/2022 7:00 AM LIBRARY MONITOR ST[facility] Monocytes 0.64 0.26 - 0.81 x10(9)/L 09/22/2022 7:00 AM LIBRARY MONITOR STMA Eosinophils 0.05 0.03 - 0.48 x10(9)/L 09/22/2022 7:00 AM LIBRARY MONITOR STMA Basophils 0.04 0.01 - 0.08 x10(9)/L 09/22/2022 7:00 AM LIBRARY MONITOR ST[facility] Blood (Blood, Venous) 09/22/2022 6:50 AM LIBRARY MONITOR 09/22/2022 6:57 AM LIBRARY MONITOR Adrián Mayers M.D. LAB BLOOD ADD-ON [facility] [address] [place] [address], [facility] [address] [place] [address] * (ABNORMAL) Basic Metabolic Panel (09/22/2022 6:50 AM LIBRARY MONITOR) Pathologist [facility] Potassium, P 3.7 3.6 - 5.2 mmol/L 09/22/2022 7:24 AM LIBRARY MONITOR ST[facility] Sodium, P 135 135 - 145 mmol/L 09/22/2022 7:24 AM LIBRARY MONITOR [facility] Chloride, P 96(L) 98 - 107 mmol/L 09/22/2022 7:24 AM LIBRARY MONITOR ST[facility] Bicarbonate, P 25 22 - 29 mmol/L 09/22/2022 7:24 AM LIBRARY MONITOR ST[facility] Anion Gap, P 14 7 - 15 09/22/2022 7:24 AM LIBRARY MONITOR [facility] BUN (Blood Urea Nitrogen), P 18 8 - 24 mg/dL 09/22/2022 7:24 AM LIBRARY MONITOR STMA Creatinine 0.77 0.74 - 1.35 mg/dL 09/22/2022 7:24 AM LIBRARY MONITOR STMA Estimated GFR (eGFR) >90 >=60 mL/min/BSA 09/22/2022 7:24 AM LIBRARY MONITOR STMA Comment: Estimated GFR calculated using the 2020 CKD_EPI creatinine equation. Calcium, Total, P 9.1 8.8 - 10.2 mg/dL 09/22/2022 7:24 AM LIBRARY MONITOR STMA Glucose, P 360(H) 70 - 140 mg/dL 09/22/2022 7:24 AM LIBRARY MONITOR [facility] Blood (Blood, Venous) 09/22/2022 6:50 AM LIBRARY MONITOR 09/22/2022 6:57 AM LIBRARY MONITOR Adrián Mayers M.D[place] [address], [facility] [address] [place] [address] * ECG 12 Lead (09/22/2022 6:44 AM LIBRARY MONITOR) Ventricular Rate ECG/Min 67 BPM MUSE DE Interval 160 ms MUSE QRSD Interval 132 ms MUSE QT Interval 444 ms MUSE QTC Interval 469 ms MUSE P [place] 19 degrees MUSE R [place] 3 degrees MUSE T Wave [place] 55 degrees MUSE 09/22/2022 6:44 AM LIBRARY MONITOR 09/25/2022 1:07 PM LIBRARY MONITOR Impressions MUSE - 09/25/2022 1:08 PM LIBRARY MONITOR Normal sinus rhythm Non-specific intra-ventricular conduction block Cannot rule out Anteroseptal infarct ST elevation in Inferolateral leads - possible acute injury ST depression Anteroseptal leads - likely posterior injury given ST elevation in posterior leads ACUTE [place] / STEMI Posterior chest leads were recorded. There was evidence of injury. Narrative Procedure Note Medardo Hyatt M.D. - 09/25/2022 IMPRESSION: Normal sinus rhythm Non-specific intra-ventricular conduction block Cannot rule out Anteroseptal infarct ST elevation in Inferolateral leads - possible acute injury ST depression Anteroseptal leads - likely posterior injury given STelevation in posterior leads ACUTE [place] / STEMI Posterior chest leads were recorded. There was evidence of injury. Kellen Rollins APRNNAnaliPAnali, D.N.P., M.S.N . ECG ORDERABLES MUSE NA * ECG 12 Lead (09/22/2022 6:43 AM LIBRARY MONITOR) Ventricular Rate ECG/Min 71 BPM MUSE DE Interval 166 ms MUSE QRSD Interval 130 ms MUSE QT Interval 440 ms MUSE QTC Interval 478 ms MUSE P [place] 40 degrees MUSE R [place] -1 degrees MUSE T Wave [place] 59 degrees MUSE 09/22/2022 6:43 AM LIBRARY MONITOR 09/22/2022 7:01 AM LIBRARY MONITOR Impressions MUSE - 09/22/2022 7:01 AM LIBRARY MONITOR Normal sinus rhythm Non-specific intra-ventricular conduction block ST elevation in Lateral leads ST depression in Anteroseptal leads When compared with ECG of 01-NOV-2008 06:44, Significant changes have occurred Reviewed by MIRIAM Olivia Narrative Procedure Note Kevin Bower M.D. - 09/22/2022 IMPRESSION: Normal sinus rhythm Non-specific intra-ventricular conduction block ST elevation in Lateral leads ST depression in Anteroseptal leads When compared with ECG of 01-NOV-2008 06:44, Significant changes have occurred Reviewed by MIRIAM Olivia Adrián Mayers M.D. 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 Diabetes Mellitus Type 2 (HCC) Hypertension Essential Primary ST Elevation Myocardial Infarction Involving Left Circumflex Coronary Artery (HCC) Atherosclerotic Heart Disease [place] Coronary Artery Without Angina Pectoris documented in this encounter Admitting Diagnoses Diagnosis ST Elevation Myocardial Infarction Involving Left Circumflex Coronary Artery (HCC) Atherosclerotic Heart Disease [place] Coronary Artery Without Angina Pectoris documented in this encounter Administered Medications Inactive Administered Medications - up to 3 most recent administrations Medication Order MAR Action Action Date Dose Rate Site acetaminophen tablet 325 mg (TYLENOL) 325 mg, oral, 3 times daily PRN, mild pain or score 1-3 of 10, moderate pain or score 4-6 of 10, Starting on Sat09/22/22 at 1249, Postprocedure (CV), Do not exceed 4 grams daily from all sources aspirin chewable tablet 81 mg 81 mg, oral, Daily, First dose on Sat09/23/22 at 0900, Postprocedure (CV) Given 09/26/2022 8:02 AM LIBRARY MONITOR 81 mg Given 09/25/2022 8:12 AM LIBRARY MONITOR 81 mg Given 09/24/2022 8:50 AM LIBRARY MONITOR 81 mg atorvastatin tablet 80 mg (LIPITOR) 80 mg, oral, Daily, First dose (after last modification) on Sat09/23/22 at 0900 Given 09/26/2022 8:02 AM LIBRARY MONITOR 80 mg Given 09/25/2022 8:12 AM LIBRARY MONITOR 80 mg Given 09/24/2022 8:50 AM LIBRARY MONITOR 80 mg atropine injection 0.5 mg 0.5 mg, intravenous, Every 5 min PRN, Symptomatic bradycardia with hypotension, Starting on Sat09/25/22 at 1205, For 4 doses, Postprocedure (CV) bisacodyL suppository 10 mg (DULCOLAX) 10 mg, rectal, Daily PRN, constipation, Starting on Sat09/25/22 at 1205, Postprocedure (CV), PO route preferred. Constipation unrelieved by docusate sodium (COLACE) if ordered. If results needed within 2 hours - give rectal suppository. clopidogreL tablet 75 mg (PLAVIX) 75 mg, oral, Daily, First dose on Sat09/23/22 at 0900, Postprocedure (CV) Given 09/26/2022 8:02 AM LIBRARY MONITOR 75 mg Given 09/25/2022 8:12 AM LIBRARY MONITOR 75 mg Given 09/24/2022 8:50 AM LIBRARY MONITOR 75 mg docusate sodium capsule 100 mg (COLACE) 100 mg, oral, 2 times daily PRN, constipation, Starting on Sat09/25/22 at 1205, Postprocedure (CV), Do NOT crush or chew. fentaNYL injection (SUBLIMAZE) As needed, Starting on Sat09/25/22 at 0959, Intraprocedure (CV) Given 09/25/2022 10:54 AM LIBRARY MONITOR 25 mcg Given 09/25/2022 10:14 AM LIBRARY MONITOR 25 mcg Given 09/25/2022 9:59 AM LIBRARY MONITOR 25 mcg furosemide tablet 40 mg (LASIX) 40 mg, oral, Daily, First dose on Soila 09/27/22 at 0900 heparin (porcine) 1,000 unit/mL injection As needed, Starting on Sat09/25/22 at 1019, Intraprocedure (CV) Given 09/25/2022 10:19 AM LIBRARY MONITOR 8,000 Units insulin aspart U-100 (Carbohydrate Count) injection 0-40 Units (NovoLOG FlexPen) 0-40 Units, subcutaneous, 3 times daily with meals, First dose (after last modification) on Sat09/25/22 at 0800, Simple or Complex Ratio: Simple, Carb Ratio - Simple (1 unit per __ grams of carbohydrates): 6 Given 09/26/2022 12:15 PM LIBRARY MONITOR 6 Units Right Lower Abdomen Given 09/26/2022 7:58 AM LIBRARY MONITOR 8 Units Le ft Lower Abdomen Given 09/25/2022 5:55 PM LIBRARY MONITOR 6 Units Le ft Lower Abdomen insulin aspart U-100 injection 0-21 Units (NovoLOG FlexPen) 0-21 Units, subcutaneous, 3 times daily, First dose (after last modification) on Sat09/23/22 at 0730, Insulin Scale: Individualized Correction Scale, 140 - 179: 3, 180-219: 6, 220-259: 9, 260-299: 12, 300-339: 15, 340-379: 18, 380-399: 21, Greater than 399: Call service writing Insulin orders Given 09/26/2022 12:15 PM LIBRARY MONITOR 12 Units Right Lower Abdomen Given 09/26/2022 7:59 AM LIBRARY MONITOR 12 Units Le ft Lower Abdomen Given 09/25/2022 5:55 PM LIBRARY MONITOR 3 Units Le ft Upper Abdomen insulin glargine injection 50 Units 50 Units, subcutaneous, Every morning, First dose (after last modification) on Sat09/23/22 at 0730 Given 09/26/2022 8:02 AM LIBRARY MONITOR 50 Units Left Lower Abdomen Given 09/25/2022 8:13 AM LIBRARY MONITOR 50 Units Le ft Lower Abdomen Given 09/24/2022 8:54 AM LIBRARY MONITOR 50 Units Le ft Lower Abdomen iohexoL 350 mg iodine/mL solution (OMNIPAQUE) As needed, Starting on Sat09/25/22 at 1104, Intraprocedure (CV) Given 09/25/2022 11:04 AM LIBRARY MONITOR 70 mL lidocaine 10 mg/mL (1 %) injection (XYLOCAINE) As needed, Starting on Sat09/25/22 at 1006, Intraprocedure (CV) Given 09/25/2022 10:06 AM LIBRARY MONITOR 10 mL Right Groin losartan tablet 50 mg (COZAAR) 50 mg, oral, Daily, First dose (after last modification) on Sat09/26/22 at 0900 Given 09/26/2022 9:17 AM LIBRARY MONITOR 50 mg metoprolol succinate 24 hr tablet 50 mg (TOPROL-XL) 50 mg, oral, Daily, First dose on Sat09/26/22 at 0900, Do NOT crush or chew. Tablet may be split on score if needed. Given 09/26/2022 8:02 AM LIBRARY MONITOR 50 mg midazolam (PF) injection (VERSED) As needed, Starting on Sat09/25/22 at 0959, Intraprocedure (CV) Given 09/25/2022 9:59 AM LIBRARY MONITOR 0.5 mg midazolam (PF) injection 1 mg (VERSED) 1 mg, intravenous, Every 2 min PRN, sedation, RASS 0, Starting on Sat09/25/22 at 0952, Intraprocedure (CV), May repeat every 2 minutes for a maximum of 5 mg. Do not give if respiratory rate is less than 8 breaths/minute. Given 09/25/2022 10:57 AM LIBRARY MONITOR 0.5 mg Given 09/25/2022 10:14 AM LIBRARY MONITOR 0.5 mg naloxone injection 0.2 mg (NARCAN) 0.2 mg, intravenous, As needed, respiratory depression, Starting on Sat09/25/22 at 1205, Postprocedure (CV), For RASS Score -4 or less, respiratory rate of less than 8 breaths/min. Notify provider/service and rapid response team (if available at institution). nitroglycerin in D5W 100 mcg/mL syringe (for intra-arterial use only) As needed, Starting on Sat09/25/22 at 1057, Intraprocedure (CV) Given 09/25/2022 10:57 AM LIBRARY MONITOR 200 mcg promethazine injection 6.25 mg (PHENERGAN) 6.25 mg, intravenous, Every 6 hours PRN, nausea, vomiting, Starting on Sat09/25/22 at 1205, Postprocedure (CV), RASS must be -2 or higher to administer. Reassess for nausea/vomiting after at least 10 minutes. (order for antiemetic medication administration Ondansetron then Promethazine). sodium chloride 0.9 % injection 10 mL 10 mL, intravenous, As needed, line care, Starting on 09/22/22 at 0651, Peripheral Intravenous Catheter and Rapid Infusion Catheter, prior to blood sampling, post blood transfusion or post blood sampling sodium chloride 0.9 % injection 3 mL 3 mL, intravenous, As needed, line care, Starting on 09/22/22 at 0651, Prior to and following infusion and between multiple consecutive infusions: sodium chloride 0.9 % injection sodium chloride 0.9 % injection 3 mL 3 mL, intravenous, Every 12 hours scheduled, First dose on 09/22/22 at 0900, Peripheral Intravenous Catheter and Rapid Infusion Catheter, when no infusion to maintain patency Given 09/26/2022 8:03 AM LIBRARY MONITOR 3 mL Given 09/25/2022 8:56 PM LIBRARY MONITOR 3 mL Given 09/25/2022 8:18 AM LIBRARY MONITOR 3 mL documented in this encounter Active and Recently Administered Medications Times are shown in LIBRARY MONITOR. Scheduled Medication Order 09/24/2022 09/25/2022 09/26/2022 aspirin chewable tablet 243 mg (COMPLETED) 243 mg, oral, Once, On Sat09/25/22 at 0845, For 1 dose, Preprocedure (CV) 0833 (Given - Provider: Daisy Landon R.N.) aspirin chewable tablet 81 mg 81 mg, oral, Daily, First dose on 09/23/22 at 0900, Postprocedure (CV) 0850 (Given - Provider: Obdulia Valencia R.N.) 0812 (Given - Provider: Christiane Arias R.N.)0823 (SEP Hold - Provider: Transfer Provider, Automatic - Reason: Patient not available)1201 (SEP Unhold - Provider: Transfer Provider, Automatic) 0802 (Given - Provider: Adan Esparza R.N.) atorvastatin tablet 80 mg (LIPITOR) 80 mg, oral, Daily, First dose (after last modification) on 09/23/22 at 0900 0850 (Given - Provider: Obdulia Valencia R.N.) 0812 (Given - Provider: Christiane Arias RBereket)0823 (SEP Hold - Provider: Transfer Provider, Automatic - Reason: Patient not available)1201 ([facility] Unhold - Provider: Transfer Provider, Automatic) 0802 (Given - Provider: Adan Esparza R.N.) clopidogreL tablet 75 mg (PLAVIX) 75 mg, oral, Daily, First dose on 09/23/22 at 0900, Postprocedure (CV) 0850 (Given - Provider: Obdulia Valencia R.N.) 0812 (Given - Provider: Christiane Arias RBereket)0823 (SEP Hold - Provider: Transfer Provider, Automatic - Reason: Patient not available)1201 (SEP Unhold - Provider: Transfer Provider, Automatic) 0802 (Given - Provider: Adan Esparza R.N.) furosemide injection 40 mg (LASIX) (COMPLETED) 40 mg, intravenous, Once, On Sat09/24/22 at 1115, For 1 dose, Adults: Doses less than 120 mg: IV push over 20 mg/minute. Doses 120 mg or greater: IVPB at 4 mg/minute. Peds/Neonates: Doses less than 120 mg over 0.5 mg/kg/minute. Doses 120 mg or greater: IVPB at 4 mg/minute. 1133 (Given - Provider: Obdulia Valencia RAnaliNAnali) furosemide injection 40 mg (LASIX) (COMPLETED) 40 mg, intravenous, Once, On Sat09/26/22 at 0900, For 1 dose, Adults: Doses less than 120 mg: IV push over 20 mg/minute. Doses 120 mg or greater: IVPB at 4 mg/minute. Peds/Neonates: Doses less than 120 mg over 0.5 mg/kg/minute. Doses 120 mg or greater: IVPB at 4 mg/minute. 0917 (Given - Provider: Adan Esparza RAnaliNAnali) furosemide tablet 40 mg (LASIX) 40 mg, oral, Daily, First dose on Sat09/27/22 at 0900 heparin (porcine) injection 5,000 Units (COMPLETED) 5,000 Units, subcutaneous, Every 8 hours scheduled, First dose (after last modification) on Sat09/23/22 at 2200, For 4 doses 0615 (Given - Provider: Randa Chavira RAnaliNAnali)1330 (Given - Provider: Obdulia Valencia RAnaliN.)2114 (Given - Provider: Jake Swan RAnaliNAnali) insulin aspart U-100 (Carbohydrate Count) injection 0-20 Units (NovoLOG FlexPen) (CANCELED) 0-20 Units, subcutaneous, 3 times daily with meals, First dose on Sat09/23/22 at 1700, Simple or Complex Ratio: Simple, Carb Ratio - Simple (1 unit per __ grams of carbohydrates): 8 1003 (Given - Provider: Obdulia Valencia RAnaliN. - Comment: pt eating)1254 (Given - Provider: Obdulia Valencia RAnaliN.)1757 (Given - Provider: Obdulia Valencia RAnaliN.) insulin aspart U-100 (Carbohydrate Count) injection 0-40 Units (NovoLOG FlexPen) 0-40 Units, subcutaneous, 3 times daily with meals, First dose (after last modification) on Sat09/25/22 at 0800, Simple or Complex Ratio: Simple, Carb Ratio - Simple (1 unit per __ grams of carbohydrates): 6 4998 (Not Given - Provider: Christiane Arias R.N. - Reason: NPO)0823 (MAR Hold - Provider: Transfer Provider, Automatic - Reason: Patient not available)1200 (Dose Auto Held - Provider: Transfer Provider, Automatic)1201 (MAR Unhold - Provider: Transfer Provider, Automatic)1324 (Not Given - Provider: Christiane Arias R.N. - Reason: Other)1755 (Given - Provider: Christiane Arias R.N.) 0758 (Given - Provider: Adan Esparza R.N.)1215 (Given - Provider: Christiane Arias R.N.) insulin aspart U-100 injection 0-21 Units (NovoLOG FlexPen) 0-21 Units, subcutaneous, 3 times daily, First dose (after last modification) on 09/23/22 at 0730, Insulin Scale: Individualized Correction Scale, 140 - 179: 3, 180-219: 6, 220-259: 9, 260-299: 12, 300-339: 15, 340-379: 18, 380-399: 21, Greater than 399: Call service writing Insulin orders 1004 (Given - Provider: Obdulia Valencia R.N. - Comment: pt eating)1254 (Given - Provider: Obdulia Valencia R.N.)1757 (Given - Provider: Obdulia Valencia R.N.) 0812 (Given - Provider: Christiane Arias R.N.)0823 (MAR Hold - Provider: Transfer Provider, Automatic - Reason: Patient not available)1200 (Dose Auto Held - Provider: Transfer Provider, Automatic)1201 (MAR Unhold - Provider: Transfer Provider, Automatic)1310 (Given - Provider: Christiane Arias R.N. - Comment: pt returned and MAR unheld)1755 (Given - Provider: Christiane Arias R.N.) 0759 (Given - Provider: Adan Esparza R.N. - Comment: 267)1215 (Given - Provider: Christiane Arias R.N.) insulin glargine injection 50 Units 50 Units, subcutaneous, Every morning, First dose (after last modification) on 09/23/22 at 0730 0854 (Given - Provider: Obdulia Valencia R.N.) 0813 (Given - Provider: Christiane Arias R.N.) 0802 (Given - Provider: Adan Esparza R.N.) losartan tablet 25 mg (COZAAR) (CANCELED) 25 mg, oral, Daily, First dose (after last modification) on Sat09/24/22 at 1115 1133 (Given - Provider: Obdulia Valencia R.N.) 0812 (Given - Provider: Christiane Arias R.N.)0823 (SEP Hold - Provider: Transfer Provider, Automatic - Reason: Patient not available)120 (SEP Unhold - Provider: Transfer Provider, Automatic) losartan tablet 50 mg (COZAAR) 50 mg, oral, Daily, First dose (after last modification) on Sat09/26/22 at 0900 0917 (Given - Provider: Adan Esparza R.N.) metoprolol succinate 24 hr tablet 50 mg (TOPROL-XL) 50 mg, oral, Daily, First dose on Sat09/26/22 at 0900, Do NOT crush or chew. Tablet may be split on score if needed. 0802 (Given - Provider: Adan Esparza R.N.) metoprolol tablet 12.5 mg (LOPRESSOR) (CANCELED) 12.5 mg, oral, 2 times daily, First dose on Sat09/22/22 at 2100 0850 (Given - Provider: Obdulia Valencia RBereket) metoprolol tartrate tablet 25 mg (LOPRESSOR) (COMPLETED) 25 mg, oral, 2 times daily, First dose (after last modification) on Sat09/24/22 at 2100, For 3 doses 2114 (Given - Provider: Jake Swan RAnaliNAnali) 0812 (Given - Provider: Christiane Arias R.N.)0823 (SEP Hold - Provider: Transfer Provider, Automatic - Reason: Patient not available)120 (SEP Unhold - Provider: Transfer Provider, Automatic)2054 (Given - Provider: Namita Baker RAnaliNAnali) NaCl 0.9 % bolus 250 mL (COMPLETED) 250 mL, intravenous, at 1,000 mL/hr, Administer over 15 Minutes, Once, On Sat09/25/22 at 1215, For 1 dose, Postprocedure (CV) 1251 (New Bag - Provider: Christiane Arias R.N.) potassium chloride ER tablet 20 mEq (KLORCON/K-TAB) (COMPLETED) 20 mEq, oral, Once, On 09/24/22 at 0730, For 1 dose, Swallow whole. Do NOT crush, chew, or split tablet. 0850 (Given - Provider: Obdulia Valencia RAnaliN.) sodium chloride 0.9 % injection 3 mL 3 mL, intravenous, Every 12 hours scheduled, First dose on 09/22/22 at 0900, Peripheral Intravenous Catheter and Rapid Infusion Catheter, when no infusion to maintain patency 0851 (Given - Provider: Obdulia Valencia RAnaliN.)2114 (Given - Provider: Jake Swan RAnaliNAnali) 0818 (Given - Provider: Christiane Arias R.N.)0823 (MAR Hold - Provider: Transfer Provider, Automatic - Reason: Patient not available)1201 (MAR Unhold - Provider: Transfer Provider, Automatic)2055 (Given - Provider: Namita Baker RAnaliN.) 0803 (Given - Provider: Adan Esparza RAnaliNAnali) PRN Medication Order 09/24/2022 09/25/2022 09/26/2022 acetaminophen tablet 325 mg (TYLENOL) 325 mg, oral, 3 times daily PRN, mild pain or score 1-3 of 10, moderate pain or score 4-6 of 10, Starting on 09/22/22 at 1249, Postprocedure (CV), Do not exceed 4 grams daily from all sources 0823 (MAR Hold - Provider: Transfer Provider, Automatic - Reason: Patient not available)1201 (MAR Unhold - Provider: Transfer Provider, Automatic) atropine injection 0.5 mg 0.5 mg, intravenous, Every 5 min PRN, Symptomatic bradycardia with hypotension, Starting on Sat09/25/22 at 1205, For 4 doses, Postprocedure (CV) bisacodyL suppository 10 mg (DULCOLAX) 10 mg, rectal, Daily PRN, constipation, Starting on Sat09/25/22 at 1205, Postprocedure (CV), PO route preferred. Constipation unrelieved by docusate sodium (COLACE) if ordered. If results needed within 2 hours - give rectal suppository. docusate sodium capsule 100 mg (COLACE) 100 mg, oral, 2 times daily PRN, constipation, Starting on Sat09/25/22 at 1205, Postprocedure (CV), Do NOT crush or chew. fentaNYL injection (SUBLIMAZE) (CANCELED) As needed, Starting on Sat09/25/22 at 0959, Intraprocedure (CV) 0959 (Given - Provider: Bradford Black R.N.)1014 (Given - Provider: Bradford Black R.N.)1054 (Given - Provider: Bradford Black R.N.) fentaNYL injection 25 mcg (SUBLIMAZE) (COMPLETED) 25 mcg, intravenous, Once as needed, moderate pain or score 4-6 of 10, severe pain or score 7-10 of 10, Until sheath removal., Starting on Sat09/25/22 at 1205, For 1 dose, Postprocedure (CV) 1415 (Given - Provider: José Miguel Arias R.N.) heparin (porcine) 1,000 unit/mL injection (CANCELED) As needed, Starting on Sat09/25/22 at 1019, Intraprocedure (CV) 1019 (Given - Provider: Bradford Black R.N.) iohexoL 350 mg iodine/mL solution (OMNIPAQUE) (CANCELED) As needed, Starting on Sat09/25/22 at 1104, Intraprocedure (CV) 1104 (Given - Provider: Alexey Adler M.D.) lidocaine 10 mg/mL (1 %) injection (XYLOCAINE) (CANCELED) As needed, Starting on Sat09/25/22 at 1006, Intraprocedure (CV) 1006 (Given - Provider: Alexey Adler M.D.) midazolam (PF) injection (VERSED) (CANCELED) As needed, Starting on Sat09/25/22 at 0959, Intraprocedure (CV) 0959 (Given - Provider: Bradford Black R.N.) midazolam (PF) injection 1 mg (VERSED) (CANCELED) 1 mg, intravenous, Every 2 min PRN, sedation, RASS 0, Starting on Sat09/25/22 at 0952, Intraprocedure (CV), May repeat every 2 minutes for a maximum of 5 mg. Do not give if respiratory rate is less than 8 breaths/minute. 1014 (Given - Provider: Bradford Black R.N.)1057 (Given - Provider: Bradford Black R.N.) naloxone injection 0.2 mg (NARCAN) 0.2 mg, intravenous, As needed, respiratory depression, Starting on Sat09/25/22 at 1205, Postprocedure (CV), For RASS Score -4 or less, respiratory rate of less than 8 breaths/min. Notify provider/service and rapid response team (if available at institution). nitroglycerin in D5W 100 mcg/mL syringe (for intra-arterial use only) (CANCELED) As needed, Starting on Sat09/25/22 at 1057, Intraprocedure (CV) 1057 (Given - Provider: Alexey Adler M.D.) oxyCODONE-acetaminophen 5-325 mg per tablet 1 tablet (PERCOCET) 1 tablet, oral, Every 6 hours PRN, severe pain or score 7-10 of 10, Starting on 09/22/22 at 1249 0823 (SEP Hold - Provider: Transfer Provider, Automatic - Reason: Patient not available)1201 (SEP Unhold - Provider: Transfer Provider, Automatic) promethazine injection 6.25 mg (PHENERGAN) 6.25 mg, intravenous, Every 6 hours PRN, nausea, vomiting, Starting on Sat09/25/22 at 1205, Postprocedure (CV), RASS must be -2 or higher to administer. Reassess for nausea/vomiting after at least 10 minutes. (order for antiemetic medication administration Ondansetron then Promethazine). sodium chloride 0.9 % injection 10 mL 10 mL, intravenous, As needed, line care, Starting on 09/22/22 at 0651, Peripheral Intravenous Catheter and Rapid Infusion Catheter, prior to blood sampling, post blood transfusion or post blood sampling 0823 (SEP Hold - Provider: Transfer Provider, Automatic - Reason: Patient not available)1201 (SEP Unhold - Provider: Transfer Provider, Automatic) sodium chloride 0.9 % injection 3 mL 3 mL, intravenous, As needed, line care, Starting on 09/22/22 at 0651, Prior to and following infusion and between multiple consecutive infusions: sodium chloride 0.9 % injection 0823 (SEP Hold - Provider: Transfer Provider, Automatic - Reason: Patient not available)1201 (SEP Unhold - Provider: Transfer Provider, Automatic) documented in this encounter Care Teams [employer] Associate Relationship Specialty Start Date End Date None Reported, Pcp PCP - General Family Medicine 09/22/22 documented as of this encounter
--- OUTSIDE RECORDS SUMMARY | 2023-08-14 09:41 | XMS_ITS | Encounter Summary ---
Author Name Unknown Organization [facility] Address [address] [place] [address] Care Team Providers Care Evaluation Specialist Name Role Phone None Reported, Pcp Primary Care Provider Unavail able Reason for Visit * Reason Comments Chest Pain * Auth/Cert (Routine) Specialty Diagnoses / Procedures Referred By Nadiya t Referred To Contact Diagnoses ST Elevation Myocardial Infarction Of Unspecified Site (HCC) ST Elevation Myocardial Infarction Involving Left Circumflex Coronary Artery (HCC) Procedures SD INIT HOSP IP/OBS SF/LOW Referral ID Status Reason Start Date Expiration Date Visits Re quested Visits Authorized [id number] 1 1 Encounter Details Date Type Department Care Team (Latest Contact Info) Description 09/22/2022 6:35 AM RESTAURANT CREW PERSON - 09/26/2022 2:30 PM RESTAURANT CREW PERSON Hospital Encounter [facility], [facility], [facility], Sixth Floor [address] [place] [address] Adrián Mayers M.D. [address] [place] [phone] Deanne Langford M.D. [address] [place] [phone] Maximino Pan M.D. [address] [place] [phone] Judy House M.B.B.S., Ph.D. [address] [place] [phone] Mike Garcia M.D., Ph.D. [address] [place] [address] ST Elevation Myocardial Infarction Involving Left Circumflex Coronary Artery (HCC) (Primary Dx); ST Elevation Myocardial Infarction Of Unspecified Site (HCC); Atherosclerotic Heart Disease Of [place] Coronary Artery Without Angina Pectoris; Atherosclerotic Heart Disease [place] Coronary Artery Without Angina Pectoris Discharge Disposition: Home or Self Care Social History Tobacco Use Types Packs/Day Years [...] Comments Blood Pressure 118/73 09/26/2022 2:00 PM RESTAURANT CREW PERSON Pulse 85 09/26/2022 2:00 PM RESTAURANT CREW PERSON Temperature 36.8 ??C (98.2 ??F) 09/26/2022 11:[address] Respiratory Rate 22 09/26/2022 2:00 PM RESTAURANT CREW PERSON Oxygen Saturation 98% 09/26/2022 2:00 PM RESTAURANT CREW PERSON Inhaled Oxygen Concentration - - Weight 88 kg (193 lb 14.7 oz) 09/26/2022 6:45 AM RESTAURANT CREW PERSON Height 172 cm (5' 7.72) 09/22/2022 10:15 AM RESTAURANT CREW PERSON Body Mass Index 29.73 09/22/2022 10:15 AM RESTAURANT CREW PERSON documented in this encounter Discharge Summaries * Walt Campbell P.A.-C., M.S. - 09/26/2022 1:27 PM CST CARDIOLOGY HOSPITAL DISCHARGE SUMMARY DATE OF ADMISSION: 09/22/2022 DATE OF DISCHARGE: 09/26/2022 Discharge Provider: Judy House M.B.BAnaliS., Ph.D. Discharge Provider Team: Sara WAGNER 4 PRINCIPAL DIAGNOSES: #1 ST-elevation myocardial [...] 01 Admitting/Central Scheduling 12/20/2022 10:10 AM ECHO (16 ROGO [id number] Cardiovascular Disease 12/20/2022 1:00 PM CVD CAD CLINIC 01 [facility] Cardiovascular Disease For appointment details refer to your Patient Appointment Guide. HOSPITAL COURSE: Admission Weight: 90.7 kg Dismissal Weight: 88 kg BMI: Body mass index is 29.73 kg/m??. Mr. Julius Ramos is a 77 y.o. 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 - 09/23/2022 [...] hyperlipidemia. Mr. Ramos proceeded directly to the label printing machinist which showed thrombotic occlusion of the left [...] service on 09/23. Upon arrival he appeared [id number] volume overloaded with lower extremity edema and [...] Full Code Disposition: Home - self care AURANT CREW PERSON * Caron Thompson M.D. - 09/23/2022 9:24 [...] Please page CICU service with any questions. AURANT CREW PERSON documented in this encounter Discharge Instructions * Discharge Instructions* Easton Nielson R - 09/26/2022 9:50 AM RESTAURANT CREW PERSON BLOOD GLUCOSE MANAGEMENT: Monitor blood glucose four times daily before meals and at bedtime. Blood glucose goal is 100-140 mg/dL. Most recent A1c on record: Lab Results Component Value Date HGBA1C 10.1 (H) 09/23/2022 Follow-up with primary care provider within 7-10 days of discharge or earlier if blood glucose values are consistently out of goal range. Call in [facility]: Please call [facility] at (pager [phone]) from 7:30 AM to 9:00 AM for [...] management, yearly follow up with a local Church Business Administrator and Dietitian is recommended. Please check with your insurance company as diabetes education visits are commonly covered. Your primary care provider can provide referrals for education. You were discharged from the T CARD 4 Service. Please identify this service name if you call withquestions after hospitalization. AURANT CREW PERSON * Attachments The following attachments cannot be sent through Care Everywhere. * Clopidogrel (By mouth) (Urdu) * Furosemide (By mouth) (Urdu) * Metoprolol (By mouth) (Urdu) * Nitroglycerin, Rapid Release (By mouth) (Urdu) documented in this encounter Medications at Time [...] mg total) by mouth daily. 30 tablet 09/26/2022 09/27/2022 documented as of this encounter Progress Notes * Abdias Edgar R.N. - 09/26/2022 11:59 AM CST Ed [...] Diabetes Education if further educational needs arise. AURANT CREW PERSON * Torres Morin M.D. - 09/25/2022 2:36 PM CST I have discussed the care of Julius Ramos with Denny Mena and agree with the documentation dated 09/25/22. Please see his note for full details. Briefly, the patient is a 77 yo M w/ HTN, HLD, T2DM (A1c 10.1) who presented with a lateral STEMI s/p TAMMIE to pLCx with staged-PCI of the mRCA s/p atherectomy and TAMMIE to mRCA 09/[address] Garcia. TTE from 09/22 shows LVEF 40%, normal RV, grade 1/3 diastolic dysfunction. Plan for Today: Continue DAPT, atorvastatin, losartan, metoprolol Consider MRA and SGLT2i for HFrEF Patient's case was staffed with Dr. House. Torres Morin MD Cardiovascular Medicine Fellow, PGY-4 AURANT CREW PERSON * Afshan Otero APRN, C.N.P., D.N.P. - 09/25/2022 10:14 AM RESTAURANT CREW PERSON SUBJECTIVE LOS: 3 days DCS continues to [...] in agreement with the plan. DCS pager [phone] will continue to follow. Call primary service for diabetes concerns between [phone]. Primary service to contact monomer recovery supervisor Endo fellow via hospital white sugar syrup operator for questions. AURANT CREW PERSON * Kaleigh Chopra, Pharm.D., R.Ph. - 09/25/2022 8:19 AM CST Pharmacist [...] 20 mg -> 80 mg (noted post [place] LDL 54 non HDL 71) ; losartan 50 mg->25 mg New: metoprolol, clopidogrel ASSESSMENT / PLAN STEMI- Plan atherectomy for stenotic RCA on 09/25 (unable to pass heavily calcified stenosis) , resumed home statin (increased dose), potential addition of spironolactone prior to discharge and conversion of Metop IR > XL Kaleigh Chopra Pharm.D., R.Ph. AURANT CREW PERSON * Denny Mena P.A.-C. - 09/25/2022 7:20 [...] lateral leads. He proceeded directly to the label printing machinist where he underwent drug-eluting stent placement to [...] 35 minutes providing and coordinating care today. AURANT CREW PERSON * Denny Mena P.A.-C. - 09/24/2022 7:24 [...] lateral leads. He proceeded directly to the label printing machinist where he underwent drug-eluting stent placement to [...] 35 minutes providing and coordinating care today. AURANT CREW PERSON * Jenny Tobias APRN CAnaliNMary - 09/23/2022 4:55 PM CST SUBJECTIVE LOS: [...] in agreement with the plan. DCS pager [phone] will follow. Call primary service for diabetes concerns between [phone]. Primary service to contact monomer recovery supervisor Endo fellow via hospital white sugar syrup operator for questions a hospital white sugar syrup operator for questions. ADDENDUM: 1700 Patient transferred out of ICU. Will start Novolog via Insulin to CHO for meals, starting with 1 unit per 8GMs. All other plan as above. AURANT CREW PERSON * Nelson Easton, Pharm.D., R.Ph. - 09/23/2022 [...] mouth every 6 (six) hours as needed. AURANT CREW PERSON * Caron Thompson M.D. - 09/23/2022 7:56 [...] to floor Plan discussed with Cardiac ICU bank consultant and fellow, who were present during diggs portions of the evaluation today. Please page the service pager [phone] with any questions. AURANT CREW PERSON * Deanne Langford M.D. - 09/23/2022 6:54 [...] to the floor. Deanne Langford M.D. 09/23/2022 AURANT CREW PERSON * Nelson Easton, Pharm.D., R.Ph. - 09/23/2022 5:40 AM CST Pharmacist Progress Note Reason for admission: STEMI->thrombotic occlusion L Cx and severe stenosis RCA-> PTCA/TAMMIE L Cx PMH: DM OBJECTIVE CV: CAD-ASA 81 mg Clopidogrel 75 mg Metoprolol 12.5 mg bid, losartan 25 mg Atorvastatin 40 mg Neph: Serum creatinine: 0.69 mg/dL (L) 09/23/22 0306 Estimated creatinine clearance: 100.7 mL/min (A) Endo: CSI ASP 10 TIDM GLA 50 PPX: SQ Heparin Medication Reconciliation: Held: metformin, hydrochlorothiazide 25 mg Changed: atorvastatin 20 mg -> 40 mg (noted post [place] LDL 54 non HDL 71) ; losartan 50 mg->25 mg New: metoprolol ASSESSMENT / PLAN STEMI- Plan atherectomy for stenotic RCA on 09/25 (unable to pass heavily calcified stenosis) , resumed home statin (consider increased dose) , adding spironolactone Nelson Easton, Pharm.D., R.Ph. AURANT CREW PERSON * Nelson Easton, Pharm.D., R.Ph. - 09/22/2022 9:13 AM CST Pharmacist [...] (consider increased dose) , replete potassium (3.7), eNlson Easton Pharm.D., R.Ph. AURANT CREW PERSON * Barbie Ramos L.G.S.W., M.S.W. - 09/22/2022 8:00 AM CST SUBJECTIVE Patient presents as an overhead page from home for medical work up. Patient is not assessed due to receiving urgent medical evaluation. Per nursing staff, patient is presenting with chest pain. Patient is alert and oriented. OBJECTIVE Emergency Department social media campaign manager presents to the resuscitation bay in the context of an Adult Medical Resus . Julius Ramos was brought by [facility] ground ambulance. Checked in with the treatment team regarding this patient. ASSESSMENT / PLAN ASSESSMENT Patient appears awake, alert, and oriented. Patient does not have an emergency contact listed. Social work was unable to talk with the patient to discuss reaching out to family/friends as the patientwas taken to the label printing machinist. A full psychosocial assessment was not completed due to the nature of the medical evaluation. PLAN Please contact social work should any needs arise. Freda Cox, M.S.W. 09/22/2022 AURANT CREW PERSON documented in this encounter H&P Notes * Deanne Langford M.D. - 09/22/2022 11:24 AM CST REFERRAL SOURCE CHIEF COMPLAINT / REASON FOR VISIT Lateral ST elevation [place] HISTORY OF PRESENT ILLNESS Mr. aRmos is a very pleasant 77 y.o. male [...] 84.2 PLATELETS AUTO x10(9)/L 353* Na/KSerum/KBlood/KPlasma/KExternal/Cl/CO2:135/--/--/3.7/--/96*/-- (09/22 0650) Results from last 7 days Lab Units 09/22/22 0650 INR 1.2 Results from last 7 days Lab Units 09/22/22 0651 LACTATE mmol/L 2.0 No lab exists for component: [id number] Results from last 7 days Lab Units [...] Hyperlipidemia 5. Hypertension Deanne Langford M.D. 09/22/2022 AURANT CREW PERSON * Caron Thompson M.D. - 09/22/2022 8:22 AM CST RST CCM CVD CICU Admission Note SUBJECTIVE Posterolateral STEMI [...] of cares Plan discussed with Cardiac ICU bank consultant and fellow, who were present during diggs portions of the evaluation today. Please page the service pager [phone] with any questions. AURANT CREW PERSON documented in this encounter Procedure Notes * [...] or surrogate Adrián Mayers M.D. 09/22/22 0713 AURANT CREW PERSON documented in this encounter Consult Notes * Lalitha Garza CEP - 09/26/2022 9:38 AM CSTAssociated Order(s): IP [...] the cost of cardiac rehabilitation program visits. AURANT CREW PERSON * Jenny Tobias APRN, C.N.P. - 09/22/2022 [...] Thank you for the consult. DCS pager [phone] will follow. Call primary service for diabetes concerns between [phone]. Primary service to contact monomer recovery supervisor Endo fellow via hospital white sugar syrup operator for questions. AURANT CREW PERSON documented in this encounter Nursing Notes * Adan Esparza, RAnaliN. - 09/26/2022 2:18 PM CST Patient successfully discharged. Discharge education was provided to the patient and son, santa Lopez questions and concerns were addressed. Final vital signs were stable, and femoral access site was clean, dry, and intact. IV's were removed and telemetry was discontinued. [facility] with son to [facility]. Electronically signed by: Adan Esparza R.N. 09/26/22 2:27 PM RESTAURANT CREW PERSON AURANT CREW PERSON * Adan Esparza R.N. - 09/26/2022 2:06 PM CST Shift Goals: Clinical Goals for the Shift: Patient will discharge Identify possible barriers to meeting goals/advancing plan of care: None End of Shift Summary: Goal met. Patient discharged. Please separate discharge not. Electronically signed by: Adan Esparza R.N. 09/26/22 2:07 PM RESTAURANT CREW PERSON AURANT CREW PERSON * Christiane Arias RAnaliN. - 09/25/2022 6:45 PM CST Shift Goals: Clinical Goals for the Shift: Pt will remain free of falls during shift Identify possible barriers to meeting goals/advancing plan of care: none End of Shift Summary: Patient returned from label printing machinist with right sheath remained in place at [...] Christiane Arias, R.N. Outcome: Progressing 09/25/20221844 by Chritsiane Arias, R.N. Outcome: Progressing Problem: DISCHARGE PLANNING [...] Arias, R.N. Outcome: Progressing 09/25/20221844 by Christiane Arias RAnaliN. Outcome: Progressing Goal: Incisions, wounds, or drain sites healing without S/S of infection 09/25/20221844 by Christiane Arias R.N. Outcome: Progressing 09/25/20221844 by Christiane Arias, R.NAnali Outcome: Progressing AURANT CREW PERSON * Obdulia Valencia RAnaliN. - 09/24/2022 6:09 PM CST Shift Goals: Clinical Goals for the Shift: Pt will remain free of falls during shift Identify possible barriers to meeting goals/advancing plan of care: None End of Shift Summary: Julius remained free of falls during shift. He remained call light appropriate. VSS. Problem: SAFETY ADULT Goal: Maintain a safe environment 09/24/20221808 by Obdulia Valencia, R.N. Outcome: Progressing 09/24/2022 1308 by Obdulia Valencia, R.N. Outcome: Adequate for Discharge Problem: SAFETY ADULT - RISK FOR FALL AND OR FALL INJURY Goal: Patient remains free from fall/fall injury 09/24/20221808 by Obdulia Valencia, R.N. Outcome: Progressing 09/24/2022 1308 by Obdulia Valencia, R.N. Outcome: Adequate for Discharge AURANT CREW PERSON * Elda Solorio RAnaliN. - 09/23/2022 1:33 PM CST Report given to floor nurse, VS WNL, patient stable to transfer. AURANT CREW PERSON * Danielle Sutherland RLilia. - 09/23/2022 5:49 AM CST Shift Goals: Clinical Goals for the Shift: chest pain free, stable vs Identify possible barriers to meeting goals/advancing plan of care: STEMI End of Shift Summary: Patient denies pain, SOB.vital signs stable AURANT CREW PERSON * Srinivas Kruse M.B., B.Mariano., B.A.O. - 09/22/2022 7:10 AM CST CICU [...] to the cardiac ICU for further cares. AURANT CREW PERSON documented in this encounter OR Notes * [...] Implant Name Type Inv. Item Serial No. Shipping Supervisor Lot No. LRB No. Used Action STNT SYNERGY XD DE 3.00X38 - [id number] Cardiac Stent STNT SYNERGY XD DE 3.00X38 [employer] [id number] N/A 1 Implanted Operators: Mike Garcia M.D., Ph.D. Geetha Adler M.D. Indication: Staged RCA PCI, recent anterior STEMI Access Site(s): Right common femoral artery, 6 [place] sheath(s). Sutured in at the end of the case to be removed later in recovery. Complications: No Recommendations: -Aspirin 81mg daily indefinitely barring any complications -Clopidogrel 75 mg daily for 12 months as part of dual antiplatelet therapy from 09/25/2022 -Transfer back to cardiology floor service Please see bank consultant cath operative report for further information. This is available under Document Viewer as Diagnostic Report - Cath/EP. Code status: FULL, until time of discharge If clinical status changes, please contact the proceduralist to discuss reversal of code status. Geetha Adler M.D. 09/25/22 AURANT CREW PERSON * Brief Op Note - Geetha Adler [...] Implant Name Type Inv. Item Serial No. Shipping Supervisor Lot No. LRB No. Used Action STNT SYNERGY XD DE 3.50X16 - [id number] Cardiac Stent STNT SYNERGY XD DE 3.50X16 [employer] [id number] N/A 1 Implanted Operators: Mike Garcia M.D., Ph.D. Geetha Adler M.D. Indication: Posterior STEMI Access Site(s): Right common femoral artery, 6 [place] sheath(s). Sutured in at the end of the case to be removed later in recovery. Complications: No Recommendations: -Aspirin 81mg daily indefinitely barring any complications -Clopidogrel 75 mg daily for 12 months as part of dual antiplatelet therapy from 07/22/2023 -Will plan for staged PCI of mid RCA this Saturday with rotational atherectomy Please see bank consultant cath operative report for further information. This is available under Document Viewer as Diagnostic Report - Cath/EP. Code status: FULL, until time of discharge If clinical status changes, please contact the proceduralist to discuss reversal of code status. Geetha Adler M.D. 09/22/22 AURANT CREW PERSON documented in this encounter ED Notes * Florencia Rene R.N. - 09/22/2022 7:02 AM CST Pt arrived for new onset of chest pain @ 0300. Pt took x2 ASA when chest pain occurred, pt had no relief. Pt stated he felt nauseous & diaphoretic this AM. Florencia Rene R.N. 09/22/22 0703 Florencia Rene R.N. 09/22/22 0710 AURANT CREW PERSON * Cy Boles APRN, C.N.P., D.N.P. - [...] findings are consistent with posterior lateral STEMI. Fiber Designer consulted and STEMI activated. Was given aspirin, Plavix, and nitro drip, and heparin per cardiology's recommendation. Patient was then sent to label printing machinist PCI. ED Course as of 09/22/22 09 Sat Sep 22, 2022 0706 Lactate: 2.0 0706 Platelet Count(!): 353 0706 Neutrophils(!): 7.65 Noted 0714 D-Dimer, P: 427 D-dimer not elevated, PE less likely. 0720 DX Chest Portable 1 View IMPRESSION: No comparison. Negative chest. 0730 NT-Pro BNP: 62 Within normal limits. 0731 Troponin T, Baseline, 5th gen(!): 67 Elevated troponin. Final Diagnoses: as of 09/22/22926 ST Elevation Myocardial Infarction Of Unspecified Site ([facility]) ST Elevation Myocardial Infarction Involving Left Circumflex Coronary Artery ([facility]) Cy Boles APRN, Soumya.N.Momo., D.N.P. 09/22/22 0934 AURANT CREW PERSON * Adrián Mayers M.D. - 09/22/2022 6:37 [...] Resp Rate 09/22/22 0637 18 Blood Pressure 09/22/2237 (!) 176/79 SpO2 09/22/22 0637 97 % [...] is warm. ASSESSMENT/PLAN Final Diagnoses: as of 09/22/221534 ST Elevation Myocardial Infarction Of Unspecified Site [...] I agree with the note of the BENEFITS ANALYST/PA. Adrián Mayers M.D. 09/22/22 0701 Adrián Mayers M.D. 09/22/22 1536 AURANT CREW PERSON documented in this encounter Miscellaneous Notes * Hospital Course - Walt Campbell P.A.-C., M.S. - 09/22/2022 1:01 PM RESTAURANT CREW PERSON Mr. Julius Ramos is a 77 y.o. male who presented to [facility] Emergency Department on 09/22/2022 with chest [...] discharged home in stable condition on . AURANT CREW PERSON documented in this encounter Plan of Treatment Not on file documented as of this encounter Procedures Procedure Name Priority Date/Time Associated Diagnosis Comments GLUCOSE POCT, B Routine 09/26/2022 11:38 AM RESTAURANT CREW PERSON CBC WITH DIFFERENTIAL, B Routine 09/26/2022 8:22 AM RESTAURANT CREW PERSON BASIC METABOLIC PANEL, S/P Routine 09/26/2022 8:22 AM RESTAURANT CREW PERSON GLUCOSE POCT, B Routine 09/26/2022 7:21 AM RESTAURANT CREW PERSON GLUCOSE POCT, B Routine 09/25/2022 8:58 PM RESTAURANT CREW PERSON GLUCOSE POCT, B Routine 09/25/2022 4:39 PM RESTAURANT CREW PERSON ACT, POCT, B Timed 09/25/2022 2:09 PM RESTAURANT CREW PERSON ACT, POCT, B Routine 09/25/2022 2:06 PM RESTAURANT CREW PERSON GLUCOSE POCT, B Routine 09/25/2022 12:50 PM RESTAURANT CREW PERSON ECG Timed 09/25/2022 12:28 PM RESTAURANT CREW PERSON ADULT OXYGEN THERAPY Routine 09/25/2022 12:05 PM RESTAURANT CREW PERSON ADULT OXYGEN THERAPY Routine 09/25/2022 12:05 PM RESTAURANT CREW PERSON CARDIAC CATHETERIZATION Routine 09/25/2022 11:[address] RESTAURANT CREW [address]ERSON [address] Elevation Myocardial Infarction Involving Left Circumflex Coronary Artery (HCC) Atherosclerotic Heart Disease [place] Coronary Artery Without Angina Pectoris CARDIAC CATHETERIZATION Routine 09/25/2022 11:10 AM RESTAURANT CREW PERSON ST Elevation Myocardial Infarction Involving Left Circumflex Coronary Artery (HCC) Atherosclerotic Heart Disease Of [place] Coronary Artery Without Angina Pectoris CARDIAC CATHETERIZATION Routine 09/25/2022 11:10 AM RESTAURANT CREW PERSON ST Elevation Myocardial Infarction Involving Left Circumflex Coronary Artery (HCC) Atherosclerotic Heart Disease Of [place] Coronary Artery Without Angina Pectoris ACT, POCT, B Routine 09/25/2022 11:01 AM RESTAURANT CREW PERSON GLUCOSE POCT, B Routine 09/25/2022 11:00 AM RESTAURANT CREW PERSON ACT, POCT, B Routine 09/25/2022 10:29 AM RESTAURANT CREW PERSON ADULT OXYGEN THERAPY Routine 09/25/2022 9:52 AM RESTAURANT CREW PERSON GLUCOSE POCT, B Routine 09/25/2022 7:31 AM RESTAURANT CREW PERSON CBC WITH DIFFERENTIAL, B Routine 09/25/2022 6:40 AM RESTAURANT CREW PERSON BASIC METABOLIC PANEL, S/P Routine 09/25/2022 6:40 AM RESTAURANT CREW PERSON GLUCOSE POCT, B Routine 09/24/2022 9:21 PM RESTAURANT CREW PERSON GLUCOSE POCT, B Routine 09/24/2022 4:40 PM RESTAURANT CREW PERSON GLUCOSE POCT, B Routine 09/24/2022 11:36 AM RESTAURANT CREW PERSON GLUCOSE POCT, B Routine 09/24/2022 8:10 AM RESTAURANT CREW PERSON CBC WITH DIFFERENTIAL, B Routine 09/24/2022 5:51 AM RESTAURANT CREW PERSON BASIC METABOLIC PANEL, S/P Routine 09/24/2022 5:51 AM RESTAURANT CREW PERSON GLUCOSE POCT, B Routine 09/23/2022 9:31 PM RESTAURANT CREW PERSON GLUCOSE POCT, B Routine 09/23/2022 5:06 PM RESTAURANT CREW PERSON GLUCOSE POCT, B Routine 09/23/2022 11:27 AM RESTAURANT CREW PERSON GLUCOSE POCT, B Routine 09/23/2022 7:35 AM RESTAURANT CREW PERSON GLUCOSE POCT, B Routine 09/23/2022 3:08 AM RESTAURANT CREW PERSON LIPID PANEL, S Routine 09/23/2022 3:06 AM RESTAURANT CREW PERSON CBC WITH DIFFERENTIAL, B Routine 09/23/2022 3:06 AM RESTAURANT CREW PERSON BASIC METABOLIC PANEL, S/P Routine 09/23/2022 3:06 AM RESTAURANT CREW PERSON HEMOGLOBIN A1C, B Routine 09/23/2022 3:0 3 AM RESTAURANT CREW PERSON GLUCOSE POCT, B Routine 09/22/2022 9:15 PM RESTAURANT CREW PERSON GLUCOSE POCT, B Routine 09/22/2022 5:04 PM RESTAURANT CREW PERSON (TTE) 2D ECHO DOPPLER COLOR AND CONTRAST Routine 09/22/2022 4:32 PM RESTAURANT CREW PERSON ECG Routine 09/22/2022 1:41 PM RESTAURANT CREW PERSON GLUCOSE POCT, B Routine 09/22/2022 1:07 PM RESTAURANT CREW PERSON ACT, POCT, B Routine 09/22/2022 11:38 AM RESTAURANT CREW PERSON ACT, POCT, B STAT 09/22/2022 11:37 AM RESTAURANT CREW PERSON GLUCOSE POCT, B Routine 09/22/2022 10:07 AM RESTAURANT CREW PERSON ACT, POCT, B Timed 09/22/2022 9:38 AM RESTAURANT CREW PERSON ACT, POCT, B Routine 09/22/2022 9:35 AM RESTAURANT CREW PERSON ECG STAT 09/22/2022 9:12 AM RESTAURANT CREW PERSON TROPONIN T, 2H/6H, 5TH GEN, P Timed 09/22/2022 9:06 AM RESTAURANT CREW PERSON ADULT OXYGEN THERAPY Routine 09/22/2022 8:59 AM RESTAURANT CREW PERSON ADULT OXYGEN THERAPY Routine 09/22/2022 8:59 AM RESTAURANT CREW PERSON CARDIAC CATHETERIZATION Routine 09/22/2022 8:35 AM RESTAURANT CREW PERSON CARDIAC CATHETERIZATION Routine 09/22/2022 8:35 AM RESTAURANT CREW PERSON CARDIAC CATHETERIZATION Routine 09/22/2022 8:35 AM RESTAURANT CREW PERSON ACT, POCT, B Routine 09/22/2022 7:45 AM RESTAURANT CREW PERSON CRITICAL CARE Routine 09/22/2022 7:12 AM RESTAURANT CREW PERSON DX CHEST PORTABLE 1 VIEW RAD - Semiurgent (Fast; most ED patients; some inpatients) 09/22/2022 6:58 AM RESTAURANT CREW PERSON LACTATE, B STAT 09/22/2022 6:51 AM RESTAURANT CREW PERSON PATIENT STATUS STAT 09/22/2022 6:51 AM [employer] VENOUS BLOOD GAS W/O COOX STAT 09/22/2022 6:51 AM [employer] TROPONIN T, BASELINE, 5TH GEN, P STAT 09/22/2022 6:50 AM [employer]ERSON HEPATIC FUNCTION PANEL, S STAT 09/22/2022 6:50 AM [employer] NT-PRO B-TYPE NATRIURETIC PEPTIDE (BNP), S STAT 09/22/2022 6:50 AM [employer]ERSON SEDIMENTATION RATE, B STAT 09/22/2022 6:50 AM [employer]ERSON PROTHROMBIN TIME (PT), P STAT 09/22/2022 6:50 AM [employer]ERSON D-DIMER, P STAT 09/22/2022 6:50 AM [employer]ERSON CBC WITH DIFFERENTIAL, B STAT 09/22/2022 6:50 AM [employer] PERSON TYPE AND SCREEN STAT 09/22/2022 6:50 AM [employer]ERSON THYROID-STIMULATING HORMONE-SENSITIVE (S-TSH) STAT 09/22/2022 6:50 AM [employer]ERSON LIPASE, S/P STAT 09/22/2022 6:50 AM [employer]ERSON BASIC METABOLIC PANEL, S/P STAT 09/22/2022 6:50 AM [employer]ERSON ECG Routine 09/22/2022 6:44 AM [employer] ECG STAT 09/22/2022 6:43 AM [employer] documented in this encounter Results * (ABNORMAL) Glucose, POCT (09/26/2022 11:38 AM [employer]) Pathologist [facility] Glucose, POCT, B 281(H) 70 - 140 mg/dL 09/26/2022 11:42 AM [employer] PCLX Site Capillary 09/26/2022 11:42 AM [employer] PCLX Last Intake 3-4 hours 09/26/2022 11:42 AM [employer] PCLX Blood 09/26/2022 11:3 8 AM [employer] PERSON 09/26/2022 11:42 AM [employer]ERSON Unknown Provider LAB POCT ORDERABLES- MANUAL POC [facility] [address] [place] [address], [facility] PCLX [facility] POC [address] [place] [address] * (ABNORMAL) CBC with Differential, Blood (09/26/2022 8:22 AM [employer]) Pathologist [facility] Hemoglobin 13.8 13.2 - 16.6 g/dL 09/26/2022 9:24 AM [employer] DTL Hematocrit 43.7 38.3 - 48.6 % 09/26/2022 9:24 AM [employer] DTL Erythrocytes 5.22 4.35 - 5.65 x10(12)/L 09/26/2022 9:24 AM [employer] DTL MCV 83.7 78.2 - 97.9 fL 09/26/2022 9:24 AM [employer] DTL RBC Distrib Width 14.5 11.8 - 14.5 % 09/26/2022 9:24 AM [employer] DTL Platelet Count 375(H) 135 - 317 x10(9)/L 09/26/2022 9:24 AM [employer] DTL Leukocytes 6.8 3.4 - 9.6 x10(9)/L 09/26/2022 9:24 AM [employer] DTL Neutrophils 4.79 1.56 - 6.45 x10(9)/L 09/26/2022 9:24 AM [employer] DTL Lymphocytes 1.31 0.95 - 3.07 x10(9)/L 09/26/2022 9:24 AM [employer] DTL Monocytes 0.64 0.26 - 0.81 x10(9)/L 09/26/2022 9:24 AM [employer] DTL Eosinophils 0.07 0.03 - 0.48 x10(9)/L 09/26/2022 9:24 AM [employer] DTL Basophils 0.03 0.01 - 0.08 x10(9)/L 09/26/2022 9:24 AM [employer] DTL Blood (Blood, Venous) 09/26/2022 8:22 AM [employer]ERSON 09/26/2022 9:15 AM [employer]ERSON Caron Thompson M.D. LAB BLOOD ADD-ON [facility] [address] [place] [address], [facility] [address] [place] [address] * (ABNORMAL) Basic Metabolic Panel (09/26/2022 8:22 AM [employer]) Pathologist [facility] Potassium, S 4.3 3.6 - 5.2 mmol/L 09/26/2022 10:30 AM [employer] DTL Sodium, S 134(L) 135 - 145 mmol/L 09/26/2022 10:30 AM [employer] DTL Chloride, S 98 98 - 107 mmol/L 09/26/2022 10:30 AM [employer] DTL Bicarbonate, S 22 22 - 29 mmol/L 09/26/2022 10:30 AM [employer] DTL Anion Gap 14 7 - 15 09/26/2022 10:30 AM [employer] DTL BUN (Blood Urea Nitrogen), S 25(H) 8 - 24 mg/dL 09/26/2022 10:30 AM [employer] DTL Creatinine 0.75 0.74 - 1.35 mg/dL 09/26/2022 10:30 AM [employer] DTL Estimated GFR (eGFR) >90 >=60 mL/min/BSA 09/26/2022 10:30 AM [employer] DTL Comment: Estimated GFR calculated using the 2020 CKD_EPI creatinine equation. Calcium, Total, S 8.8 8.8 - 10.2 mg/dL 09/26/2022 10:30 AM [employer] DTL Glucose, S 367(H) 70 - 140 mg/dL 09/26/2022 10:30 AM [employer] DTL Blood (Blood, Venous) 09/26/2022 8:22 AM [employer]ERSON 09/26/2022 10:07 AM [employer]ERSON Caron Thompson M.D. LAB BLOOD ADD-ON [facility] [address] [place] [address], [facility] [address] [place] [address] * (ABNORMAL) Glucose, POCT (09/26/2022 7:21 AM [employer]) Glucose, POCT, B 267(H) 70 - 140 mg/dL 09/26/2022 7:26 AM [employer] PCLX Site Capillary 09/26/2022 7:26 AM [employer] PCLX Blood 09/26/2022 7:21 AM [employer]ERSON 09/26/2022 7:26 AM [employer] Unknown Provider LAB POCT ORDERABLES- MANUAL Performing Organization Address City/[facility]/ZIP Co de Phone Number POC [facility] [address] [place] [address], [place] PCLX [facility] [address] [place] [address] * (ABNORMAL) Glucose, POCT (09/25/2022 8:58 PM [employer]) Glucose, POCT, B 213(H) 70 - 140 mg/dL 09/25/2022 9:01 PM [employer] PCLX Site Capillary 09/25/2022 9:01 PM [employer] PCLX Last Intake 3-4 hours 09/25/2022 9:01 PM [employer] PCLX Blood 09/25/2022 8:58 PM [employer]ERSON 09/25/2022 9:01 PM [employer] Unknown Provider LAB POCT ORDERABLES- MANUAL Performing Organization Address [facility] Co de Phone Number POC [facility] [address] [place] [address], [place] PCLX [facility] [address] [place] [address] * (ABNORMAL) Glucose, POCT (09/25/2022 4:39 PM [employer]) Glucose, POCT, B 147(H) 70 - 140 mg/dL 09/25/2022 4:42 PM [employer] PCLX Site Capillary 09/25/2022 4:42 PM [employer] PCLX Last Intake NPO 09/25/2022 4:42 PM [employer] PCLX Blood 09/25/2022 4:39 PM [employer] PERSON 09/25/2022 4:42 PM [employer] Unknown Provider LAB POCT ORDERABLES- MANUAL Performing Organization Address City/[facility]/ZIP Co de Phone Number POC [facility] [address] [place] [address], [place] PCL[facility] [address] [place] [address] * ACT (Activated Clotting Time), POCT (09/25/2022 2:09 PM [employer]ERSON) Activated Clot Time, [place], POCT Collected DEFAULT 09/25/2022 2:09 PM [employer]ERSON SMLX Blood (Blood, Venous) 09/25/2022 2:09 PM [employer]ERSON 09/25/2022 2:09 PM [employer]ERSON Denny Mena P.A.-C. LAB POCT ORDERABLE S - DEVICE Performing Organization Address [facility] Co de Phone Number [facility] [address] [place] [address], [facility] SMLX [facility] [address] [place] [address] * (ABNORMAL) ACT (Activated Clotting Time), POCT (09/25/2022 2:06 PM [employer]) Activated Clotting Time, POCT 160(H) 84 - 139 sec 09/25/2022 2:18 PM [employer]ERSON PCSM Blood 09/25/2022 2:06 PM [employer] PERSON 09/25/2022 2:18 PM [employer] Unknown Provider LAB POCT ORDERABLES - DEVICE Performing Organization Address [facility] Co de Phone Number POC [facility] [address] [place] [address], [facility] PCSM [facility] POC [address] [place] [address] * (ABNORMAL) Glucose, POCT (09/25/2022 12:50 PM [employer]) Glucose, POCT, B 212(H) 70 - 140 mg/dL 09/25/2022 1:25 PM [employer] PCLX Site Capillary 09/25/2022 1:25 PM [employer] PCLX Last Intake > 4 hours 09/25/2022 1:25 PM [employer] PCLX Blood 09/25/2022 12:5 0 PM [employer] PERSON 09/25/2022 1:25 PM [employer] PERSON Unknown Provider LAB POCT ORDERABLES- MANUAL Performing Organization Address City/[facility]/ZIP Co de Phone Number POC [facility] [address] [place] [address], [place] [facility] P[facility] [address] [place] [address] * ECG 12 Lead (09/25/2022 12:28 PM [employer]) Ventricular Rate ECG/Min 61 BPM MUSE SD Interval 156 ms MUSE QRSD Interval 134 ms MUSE QT Interval 470 ms MUSE QTC Interval 473 ms MUSE P [place] 48 degrees MUSE R [place] -50 degrees MUSE T Wave [place] -71 degrees MUSE 09/25/2022 12:2 8 PM [employer] PERSON 09/25/2022 12:35 PM [employer] PERSON Impressions MUSE - 09/25/2022 12:35 PM [employer] PERSON Normal sinus rhythm Left axis deviation Non-specific [...] CORONARY ANGIOPLASTY, STENT PLACEMENT (09/25/2022 11:10 AM [employer]ANT [employer] PERSON) Anatomical Region Laterality Modality X-Ray Angiograph y 09/25/2022 10:1 3 AM [employer]ERSON Narrative 09/25/2022 4:13 PM [employer] PERSON For the complete report, see the Order-Level Documents. PROCEDURE TYPES 1. ??CORONARY ATHERECTOMY 2. ??PERCUTANEOUS CORONARY ANGIOPLASTY 3. ??CORONARY STENT PLACEMENT FINAL DIAGNOSIS 1. ??Severe coronary artery atherosclerosis 2. ??Rotational atherectomy 3. ??Successful percutaneous coronary intervention with drug eluting stent PRE-PROCEDURE DIAGNOSIS 1. 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 ??Atherosclerotic Heart Disease Of [place] Coronary Artery Without Angina Pectoris CORONARY DIAGNOSTIC [...] (Activated Clotting Time), POCT (09/25/2022 11:01 AM [employer] PERSON) Activated Clotting Time, POCT 284(H) 84 - 139 sec 09/25/2022 11:07 AM [employer] PERSON PCSM Blood 09/25/2022 11:0 1 AM [employer] PERSON 09/25/2022 11:07 AM [employer]ERSON Unknown Provider LAB POCT ORDERABLES - DEVICE Performing Organization Address City/[facility]/ZIP Co de Phone Number POC [facility] [address] [place] [address], [facility] POC [address] [place] [address] * (ABNORMAL) Glucose, POCT (09/25/2022 11:00 AM [employer] PERSON) Glucose, POCT, B 213(H) 70 - 140 mg/dL 09/25/2022 11:19 AM [employer] PERSON PCLX Blood 09/25/2022 11:0 0 AM [employer] PERSON 09/25/2022 11:20 AM [employer] PERSON Unknown Provider LAB POCT ORDERABLES- MANUAL Performing Organization Address City/[facility]/ZIP Co de Phone Number POC [facility] [address] [place] [address], [facility] PCLX [facility] POC [address] [place] [address] * (ABNORMAL) ACT (Activated Clotting Time), POCT (09/25/2022 10:29 AM RESTA[employer] PERSON) [facility] Activated Clotting Time, POCT 316(H) 84 - 139 sec 09/25/2022 10:35 AM [employer] PERSON PCSM Blood 09/25/2022 10:2 9 AM [employer] PERSON 09/25/2022 10:36 AM [employer] PERSON Unknown Provider LAB POCT ORDERABLES - DEVICE Performing Organization Address City/[facility]/ZIP Co de Phone Number POC [facility] [address] PCSM [facility] POC [address] [place] [id number] * (ABNORMAL) Glucose, POCT (09/25/2022 7:31 AM [employer] PERSON) [facility] Glucose, POCT, B 268(H) 70 - 140 mg/dL 09/25/2022 7:37 AM [employer] PERSON PCLX Last Intake NPO 09/25/2022 7:37 AM [employer] PERSON PCLX Blood 09/25/2022 7:31 AM [employer] PERSON 09/25/2022 7:37 AM [employer] PERSON Unknown Provider LAB POCT ORDERABLES- MANUAL POC [facility] [address] [place] [address], [facility] PCLX [facility] POC [address] [place] [address] * (ABNORMAL) CBC with Differential, Blood (09/25/2022 6:40 AM RESTA[employer] PERSON) [facility] Hemoglobin 14.2 13.2 - 16.6 g/dL 09/25/2022 7:30 AM [employer] PERSON DTL Hematocrit 43.6 38.3 - 48.6 % 09/25/2022 7:30 AM [employer] PERSON DTL Erythrocytes 5.26 4.35 - 5.65 x10(12)/L 09/25/2022 7:30 AM [employer] PERSON DTL MCV 82.9 78.2 - 97.9 fL 09/25/2022 7:30 AM [employer] PERSON DTL RBC Distrib Width 14.3 11.8 - 14.5 % 09/25/2022 7:30 AM [employer] PERSON DTL Platelet Count 395(H) 135 - 317 x10(9)/L 09/25/2022 7:30 AM [employer] P[employer] DTL Leukocytes 9.0 3.4 - 9.6 x10(9)/L 09/25/2022 7:30 AM [employer] DTL Neutrophils 6.34 1.56 - 6.45 x10(9)/L 09/25/2022 7:30 AM [employer] P[employer] DTL Lymphocytes 1.45 0.95 - 3.07 x10(9)/L 09/25/2022 7:30 AM [employer] PERSON DTL Monocytes 1.10(H) 0.26 - 0.81 x10(9)/L 09/25/2022 7:30 AM [employer] PERSON DTL Eosinophils 0.06 0.03 - 0.48 x10(9)/L 09/25/2022 7:30 AM [employer] PERSON DTL Basophils 0.04 0.01 - 0.08 x10(9)/L 09/25/2022 7:30 AM [employer] PERSON DTL Blood (Blood, Venous) 09/25/2022 6:40 AM [employer] PERSON 09/25/2022 7:14 AM [employer] PERSON Caron Thompson M.D. LAB BLOOD ADD-ON [facility] [address] [place] [address], [facility] [address] [place] [address] * (ABNORMAL) Basic Metabolic Panel (09/25/2022 6:40 AM [employer] PERSON) Potassium, S 4.1 3.6 - 5.2 mmol/L 09/25/2022 7:56 AM [employer] PERSON DTL Sodium, S 138 135 - 145 mmol/L 09/25/2022 7:56 AM [employer] PERSON DTL Chloride, S 99 98 - 107 mmol/L 09/25/2022 7:56 AM [employer] PERSON DTL Bicarbonate, S 26 22 - 29 mmol/L 09/25/2022 7:56 AM [employer] PERSON DTL Anion Gap 13 7 - 15 09/25/2022 7:56 AM [employer] PERSON DTL BUN (Blood Urea Nitrogen), S 25(H) 8 - 24 mg/dL 09/25/2022 7:56 AM [employer] PERSON DTL Creatinine 0.80 0.74 - 1.35 mg/dL 09/25/2022 7:56 AM [employer] PERSON DTL Estimated GFR (eGFR) >90 >=60 mL/min/BSA 09/25/2022 7:56 AM [employer] PERSON DTL Comment: Estimated GFR calculated using the 2020 CKD_EPI creatinine equation. Calcium, Total, S 9.2 8.8 - 10.2 mg/dL 09/25/2022 7:56 AM [employer] PERSON DTL Glucose, S 251(H) 70 - 140 mg/dL 09/25/2022 7:56 AM [employer] PERSON DTL Blood (Blood, Venous) 09/25/2022 6:40 AM [employer] CREW PERSON 09/25/2022 7:35 AM [employer] PERSON Caron Thompson M.D. LAB BLOOD ADD-ON Performing Organization Address City/[facility]/ZIP Co de Phone Number [facility] [address] [place] [address], [facility] [address] [place] [address] * (ABNORMAL) Glucose, POCT (09/24/2022 9:21 PM [employer] PERSON) Pathologist [facility] Glucose, POCT, B 144(H) 70 - 140 mg/dL 09/24/2022 9:26 PM [employer] PERSON PCLX Site Capillary 09/24/2022 9:26 PM [employer] PERSON PCLX Last Intake 3-4 hours 09/24/2022 9:26 PM [employer] PERSON PCLX Blood 09/24/2022 9:21 PM [employer]W PERSON 09/24/2022 9:26 PM [employer] PERSON Unknown Provider LAB POCT ORDERABLES- MANUAL POC [facility] [address] [place] [address], [place] PCL[facility] POC [address] [place] [address] * (ABNORMAL) Glucose, POCT (09/24/2022 4:40 PM [employer] PERSON) Glucose, POCT, B 203(H) 70 - 140 mg/dL 09/24/2022 5:28 PM [employer] PERSON PCLX Last Intake 3-4 hours 09/24/2022 5:28 PM [employer] PERSON PCLX Blood 09/24/2022 4:40 PM [employer] PERSON 09/24/2022 5:28 PM [employer] PERSON Unknown Provider LAB POCT ORDERABLES- MANUAL Performing Organization Address City/[facility]/ZIP Co de Phone Number POC [facility] [address] [place] [address], [place] [facility] POC [address] [place] [address] * (ABNORMAL) Glucose, POCT (09/24/2022 11:36 AM [employer] PERSON) Glucose, POCT, B 286(H) 70 - 140 mg/dL 09/24/2022 11:41 AM [employer] PERSON PCLX Last Intake 1-2 hours 09/24/2022 11:41 AM [employer] PERSON PCLX Blood 09/24/2022 11:3 6 AM [employer] PERSON 09/24/2022 11:41 AM [employer] PERSON Unknown Provider LAB POCT ORDERABLES- MANUAL Performing Organization Address City/[facility]/ZIP Co de Phone Number POC [facility] [address] [place] [address], [place] [facility] POC [address] [place] [address] * (ABNORMAL) Glucose, POCT (09/24/2022 8:10 AM [employer] PERSON) Glucose, POCT, B 177(H) 70 - 140 mg/dL 09/24/2022 8:16 AM [employer] PERSON PCLX Last Intake > 4 hours 09/24/2022 8:16 AM [employer] PERSON PCLX Blood 09/24/2022 8:10 AM [employer]W PERSON 09/24/2022 8:16 AM [employer] PERSON Unknown Provider LAB POCT ORDERABLES- MANUAL Performing Organization Address City/State/[facility] Co de Phone Number POC [facility] [address] [place] [address], [place] PCLX [facility] POC [address] [place] [address] * (ABNORMAL) CBC with Differential, Blood (09/24/2022 5:51 AM RESTA[employer] PERSON) Hemoglobin 13.7 13.2 - 16.6 g/dL 09/24/2022 6:37 AM [employer] PERSON DTL Hematocrit 43.0 38.3 - 48.6 % 09/24/2022 6:37 AM [employer] PERSON DTL Erythrocytes 5.20 4.35 - 5.65 x10(12)/L 09/24/2022 6:37 AM [employer] PERSON DTL MCV 82.7 78.2 - 97.9 fL 09/24/2022 6:37 AM [employer] PERSON DTL RBC Distrib Width 14.4 11.8 - 14.5 % 09/24/2022 6:37 AM [employer] PERSON DTL Platelet Count 350(H) 135 - 317 x10(9)/L 09/24/2022 6:37 AM [employer] PERSON DTL Leukocytes 8.9 3.4 - 9.6 x10(9)/L 09/24/2022 6:37 AM [employer] PERSON DTL Neutrophils 6.11 1.56 - 6.45 x10(9)/L 09/24/2022 6:37 AM [employer] PERSON DTL Lymphocytes 1.66 0.95 - 3.07 x10(9)/L 09/24/2022 6:37 AM [employer] PERSON DTL Monocytes 1.06(H) 0.26 - 0.81 x10(9)/L 09/24/2022 6:37 AM [employer] PERSON DTL Eosinophils 0.06 0.03 - 0.48 x10(9)/L 09/24/2022 6:37 AM [employer] PERSON DTL Basophils 0.04 0.01 - 0.08 x10(9)/L 09/24/2022 6:37 AM [employer] PERSON DTL Blood (Blood, Venous) 09/24/2022 5:51 AM [employer] PERSON 09/24/2022 6:26 AM [employer] CRE[employer] PERSON Caron Thompson M.D. LAB BLOOD ADD-ON [facility] [address] [place] [address], [facility] [address] [place] [address] * Basic Metabolic Panel (09/24/2022 5:51 AM RESTAURANT CRE[employer] PERSON) Potassium, S 3.9 3.6 - 5.2 mmol/L 09/24/2022 7:08 AM RESTAUR[employer] CRE[employer] PERSON DTL Sodium, S 140 135 - 145 mmol/L 09/24/2022 7:08 AM RESTAUR[employer] PERSON DTL Chloride, S 101 98 - 107 mmol/L 09/24/2022 7:08 AM RESTAUR[employer] PERSON DTL Bicarbonate, S 26 22 - 29 mmol/L 09/24/2022 7:08 AM [employer] PERSON DTL Anion Gap 13 7 - 15 09/24/2022 7:08 AM [employer]AUR[employer] CRE[employer] PERSON DTL BUN (Blood Urea Nitrogen), S 18 8 - 24 mg/dL 09/24/2022 7:08 AM [employer] PERSON DTL Creatinine 0.79 0.74 - 1.35 mg/dL 09/24/2022 7:08 AM [employer] PERSON DTL Estimated GFR (eGFR) >90 >=60 mL/min/BSA 09/24/2022 7:08 AM RESTA[employer] PERSON DTL Comment: Estimated GFR calculated using the 2020 CKD_EPI creatinine equation. Calcium, Total, S 8.8 8.8 - 10.2 mg/dL 09/24/2022 7:08 AM RESTAUR[employer] CRE[employer] PERSON DTL Glucose, S 139 70 - 140 mg/dL 09/24/2022 7:08 AM RESTAUR[employer] CRE[employer] PERSON DTL Blood (Blood, Venous) 09/24/2022 5:51 AM [employer] CREW PERSON 09/24/2022 6:48 AM [employer] CRE[employer] PERSON Caron Thompson M.D. LAB BLOOD ADD-ON [facility] [address] [place] [address], [facility] [address] [place] [address] * Glucose, POCT (09/23/2022 9:31 PM RESTAUR[employer] PERSON) Pathologist [facility] Glucose, POCT, B 111 70 - 140 mg/dL 09/23/2022 9:34 PM [employer] CREW PERSON PCLX Site Capillary 09/23/2022 9:34 PM [employer] CRE[employer] PERSON PCLX Last Intake 3-4 hours 09/23/2022 9:34 PM [employer] PERSON PCLX Blood 09/23/2022 9:31 PM [employer] PERSON 09/23/2022 9:34 PM [employer] CRE[employer] PERSON Unknown Provider LAB POCT ORDERABLES- MANUAL Performing Organization Address City/[facility]/ZIP Co de Phone Number POC [facility] [address] [place] [address], [facility] PCLX [facility] POC [address] [place] [address] * Glucose, POCT (09/23/2022 5:06 PM RESTAURANT CRE[employer] PERSON) Glucose, POCT, B 103 70 - 140 mg/dL 09/23/2022 5:08 PM RESTAURANT CREW PERSON PCLX Blood 09/23/2022 5:06 PM [employer] CREW PERSON 09/23/2022 5:08 PM [employer] CRE[employer] PERSON Unknown Provider LAB POCT ORDERABLES- MANUAL Performing Organization Address [facility] Co de Phone Number [facility] [address] [place] [address], [facility] PCLX [facility] POC [address] [place] [address] * (ABNORMAL) Glucose, POCT (09/23/2022 11:27 AM RESTAURANT CREW PERSON) Glucose, POCT, B 325(H) 70 - 140 mg/dL 09/23/2022 11:32 AM [employer] CRE[employer] PERSON PCLX Site Capillary 09/23/2022 11:32 AM [employer]AURANT CRE[employer] PERSON PCLX Last Intake 3-4 hours 09/23/2022 11:32 AM [employer]AUR[employer] PERSON PCLX Blood 09/23/2022 11:2 7 AM RESTAURANT CREW PERSON 09/23/2022 11:32 AM [employer] CREW PERSON Unknown Provider LAB POCT ORDERABLES- MANUAL Performing Organization Address City/[facility]/ZIP Co de Phone Number [facility] [address] [place] [address], [facility] PCLX [facility] POC [address] [place] [address] * (ABNORMAL) Glucose, POCT (09/23/2022 7:35 AM RESTAURANT CREW PERSON) Glucose, POCT, B 214(H) 70 - 140 mg/dL 09/23/2022 7:38 AM [employer] PCLX Site Capillary 09/23/2022 7:38 AM [employer] PCLX Last Intake > 4 hours 09/23/2022 7:38 AM [employer] PCLX Blood 09/23/2022 7:35 AM [employer]ERSON 09/23/2022 7:38 AM [employer] Unknown Provider LAB POCT ORDERABLES- MANUAL POC [facility] [address] [place] [address], [facility] [place] PCLX [facility] [address] [place] [address] * (ABNORMAL) Glucose, POCT (09/23/2022 3:08 AM [employer]) [facility] Glucose, POCT, B 223(H) 70 - 140 mg/dL 09/23/2022 3:11 AM [employer] PCLX Site Capillary 09/23/2022 3:11 AM [employer] PCLX Blood 09/23/2022 3:08 AM [employer]ERSON 09/23/2022 3:11 AM [employer] Unknown Provider LAB POCT ORDERABLES- MANUAL POC [facility] [address] [place] [address], [facility] [place] PCLX [facility] [address] [place] [address] * (ABNORMAL) CBC with Differential, Blood (09/23/2022 3:06 AM [employer]) Pathologist [facility] Hemoglobin 13.4 13.2 - 16.6 g/dL 09/23/2022 5:14 AM [employer] DTL Hematocrit 42.0 38.3 - 48.6 % 09/23/2022 5:14 AM [employer] DTL Erythrocytes 5.08 4.35 - 5.65 x10(12)/L 09/23/2022 5:14 AM [employer] DTL MCV 82.7 78.2 - 97.9 fL 09/23/2022 5:14 AM [employer] DTL RBC Distrib Width 14.4 11.8 - 14.5 % 09/23/2022 5:14 AM [employer] DTL Platelet Count 362(H) 135 - 317 x10(9)/L 09/23/2022 5:14 AM [employer] DTL Leukocytes 8.8 3.4 - 9.6 x10(9)/L 09/23/2022 5:14 AM [employer] DTL Neutrophils 6.00 1.56 - 6.45 x10(9)/L 09/23/2022 5:14 AM [employer] DTL Lymphocytes 1.77 0.95 - 3.07 x10(9)/L 09/23/2022 5:14 AM [employer] DTL Monocytes 0.93(H) 0.26 - 0.81 x10(9)/L 09/23/2022 5:14 AM [employer] DTL Eosinophils 0.07 0.03 - 0.48 x10(9)/L 09/23/2022 5:14 AM [employer] DTL Basophils 0.03 0.01 - 0.08 x10(9)/L 09/23/2022 5:14 AM [employer] DTL Blood (Blood, Venous) 09/23/2022 3:06 AM [employer] CREW PERSON 09/23/2022 5:03 AM [employer] CREW PERSON Caron Thompson M.D. LAB BLOOD ADD-ON [facility] [address] [place] [address], [facility] [address] [place] [address] * (ABNORMAL) Basic Metabolic Panel (09/23/2022 3:06 AM RESTAURANT CREW PERSON) Pathologist [facility] Potassium, S 4.1 3.6 - 5.2 mmol/L 09/23/2022 5:45 AM RESTAURANT CREW PERSON DTL Sodium, S 138 135 - 145 mmol/L 09/23/2022 5:45 AM RESTAURANT CREW PERSON DTL Chloride, S 101 98 - 107 mmol/L 09/23/2022 5:45 AM RESTAURANT CREW PERSON DTL Bicarbonate, S 25 22 - 29 mmol/L 09/23/2022 5:45 AM RESTA[employer] CREW PERSON DTL Anion Gap 12 7 - 15 09/23/2022 5:45 AM RESTAUR[employer] CREW PERSON DTL BUN (Blood Urea Nitrogen), S 18 8 - 24 mg/dL 09/23/2022 5:45 AM RESTAURANT CREW PERSON DTL Creatinine 0.69(L) 0.74 - 1.35 mg/dL 09/23/2022 5:45 AM [employer] CREW PERSON DTL Estimated GFR (eGFR) >90 >=60 mL/min/BSA 09/23/2022 5:45 AM RESTAURANT CREW PERSON DTL Comment: Estimated GFR calculated using the 2020 CKD_EPI creatinine equation. Calcium, Total, S 8.7(L) 8.8 - 10.2 mg/dL 09/23/2022 5:45 AM RESTAUR[employer] CREW PERSON DTL Glucose, S 220(H) 70 - 140 mg/dL 09/23/2022 5:45 AM RESTAUR[employer] CREW PERSON DTL Blood (Blood, Venous) 09/23/2022 3:06 AM [employer] CRE[employer] PERSON 09/23/2022 5:24 AM RESTAUR[employer] CREW PERSON Caron Thompson M.D. LAB BLOOD ADD-ON [address] [address], [address] [address] * (ABNORMAL) Lipid Panel (09/23/2022 3:06 AM RESTAURANT CREW PERSON) Pathologist [facility] Triglycerides 85 mg/dL 09/23/2022 5:45 AM RESTAURANT CREW PERSON DTL Comment: ----REFERENCE VALUE---- Normal: <150 mg/dL Borderline High: 150-199 mg/dL High: 200-499 mg/dL Very High: > or =500 mg/dL Cholesterol, Total 105 mg/dL 2022 5:45 AM RESTAURANT CREW PERSON DTL Comment: ----REFERENCE VALUE---- Desirable: < 200 mg/dL Borderline High: 200 - 239 mg/dL High: > or = 240 mg/dL Cholesterol, LDL, Calculated 54 mg/dL 09/23/2022 5:45 AM RESTAURANT CREW PERSON DTL Comment: ----REFERENCE VALUE---- Desirable: <100 mg/dL Above Desirable: 100-129 mg/dL Borderline High: 130-159 mg/dL High: 160-189 mg/dL Very High: >=190 mg/dL ----ADDITIONAL INFORMATION---- LDL cholesterol calculated using the Vidales/NIH equation. Cholesterol, HDL, S 34(L) >=40 mg/dL 09/23/2022 5:45 AM RESTAURANT CREW PERSON DTL Cholesterol, Non-HDL, Calculated 71 mg/dL 09/23/2022 5:45 AM RESTAURANT CREW PERSON DTL Comment: ----REFERENCE VALUE---- Desirable: <130 mg/dL Above Desirable: 130-159 mg/dL Borderline High: 160-189 mg/dL High: 190-219 mg/dL Very High: > or =220 mg/dL Fasting (8 HR or more) Unknown 09/23/2022 5:24 AM RESTAURANT CREW PERSON DTL Blood (Blood, Venous) 09/23/2022 3:06 AM [employer] CRE[employer] PERSON 09/23/2022 5:24 AM [employer] CRE[employer] PERSON Caron Thompson M.D. [place] [address], [facility] [address] * (ABNORMAL) Hemoglobin A1c (09/23/2022 3:03 AM RESTAUR[employer] CRE[employer] PERSON) Hemoglobin A1c, B 10.1(H) 4.0 - 5.6 % 09/23/2022 7:28 AM RESTAURANT CREW PERSON DTL Comment: Hemoglobin A1c values greater than or equal to 6.5 percent are diagnostic for diabetes mellitus. ??Diagnosis should be confirmed by repeat testing. ??In diabetic patients, HbA1c goals should be discussed with healthcare provider. Blood (Blood, Venous) 09/23/2022 3:03 AM [employer] PERSON 09/23/2022 7:20 AM RESTA[employer] CRE[employer] PERSON Jerardo Dela Cruz M.D. LAB BLOOD ADD-ON [facility] [address] [place] [address], [facility] DTL [facility] [address] [place] [address] * (ABNORMAL) Glucose, POCT (09/22/2022 9:15 PM RESTAURANT CREW PERSON) Glucose, POCT, B 259(H) 70 - 140 mg/dL 09/22/2022 9:19 PM [employer]ANT CREW PERSON PCLX Site Capillary 09/22/2022 9:19 PM [employer]AURANT CREW PERSON PCLX Blood 09/22/2022 9:15 PM [employer] CRE[employer] PERSON 09/22/2022 9:19 PM [employer]AURANT CREW PERSON Unknown Provider LAB POCT ORDERABLES- MANUAL [facility] [address] [place] [address], [place] PCLX [facility] POC [address] [place] [address] * (ABNORMAL) Glucose, POCT (09/22/2022 5:04 PM RESTAURANT CREW PERSON) [facility] Glucose, POCT, B 205(H) 70 - 140 mg/dL 09/22/2022 5:09 PM [employer]AURANT CREW PERSON PCLX Site Capillary 09/22/2022 5:09 PM [employer]AURANT CREW PERSON PCLX Last Intake > 4 hours 09/22/2022 5:09 PM [employer] PERSON PCLX Blood 09/22/2022 5:04 PM [employer]ANT CREW PERSON 09/22/2022 5:09 PM [employer]AURANT CREW PERSON Unknown Provider LAB POCT ORDERABLES- MANUAL [facility] [address] [place] [address], [facility] PCLX [facility] POC [address] [place] [address] * (TTE) 2D ECHO DOPPLER COLOR AND CONTRAST (09/22/2022 4:32 PM RESTAURANT CREW PERSON) [facility] Ejection Fraction 40 MC CV EIMS Wall [...] Region Laterality Modality Echocardiography 09/22/2022 3:02 PM [employer] PERSON Impressions 09/22/2022 5:07 PM [employer]ANT [employer]W PERSON Echo performed at the patient's bedside. There [...] per Echocardiography Contrast Administration Protocol Reference Document [id number]. Patient met an inclusion criterion and did not have contraindications in screening sections. For the complete report, see the Order-Level Documents. Narrative 09/22/2022 5:07 PM RESTAURANT [employer] PERSON For the complete report, see the Order-Level [...] administered per EchocardiographyContrast Administration Protocol Reference Document [id number]. Patientmet an inclusion criterion and did not have contraindications in screeningsections. For the complete report, see the Order-Level Documents. Caron Thompson M.D. CV ECHO PROCEDURES * ECG 12 Lead (09/22/2022 1:41 PM RESTAURANT CRE[employer] PERSON) Ventricular Rate ECG/Min 61 BPM MUSE SD Interval 166 ms MUSE QRSD Interval 130 ms MUSE QT Interval 456 ms MUSE QTC Interval 459 ms MUSE P [place] 29 degrees MUSE R [place] -42 degrees MUSE T Wave [place] -73 degrees MUSE 09/22/2022 1:41 PM [employer] PERSON 09/22/2022 1:44 PM RESTAURANT CRE[employer] PERSON Impressions MUSE - 09/22/2022 1:44 PM [employer]ANT CRE[employer] PERSON Normal sinus rhythm Left axis deviation Non-specific [...] MIRIAM Olivia Geetha Adler M.D. ECG ORDERABLES Performing Organization Address [facility] Co de Phone Number MUSE NA * (ABNORMAL) Glucose, POCT (09/22/2022 1:07 PM RESTAUR[employer] PERSON) Glucose, POCT, B 261(H) 70 - 140 mg/dL 09/22/2022 1:21 PM [employer] PERSON PCLX Blood 09/22/2022 1:07 PM [employer] CRE[employer] PERSON 09/22/2022 1:21 PM [employer]ANT CREW PERSON Unknown Provider LAB POCT ORDERABLES- MANUAL Performing Organization Address [facility] Co de Phone Number POC [facility] [address] PCLX [facility] [address] [place] [address] * (ABNORMAL) ACT (Activated Clotting Time), POCT (09/22/2022 11:38 AM RESTAURANT CREW PERSON) Activated Clotting Time, POCT 178(H) 84 - 139 sec 09/22/2022 11:47 AM RESTA[employer]ANT CREW PERSON PCSM Blood 09/22/2022 11:3 8 AM [employer] CREW PERSON 09/22/2022 11:47 AM RESTAURANT CREW PERSON Unknown Provider LAB POCT ORDERABLES - DEVICE POC [facility] [address] [place] [address], [place] PCSM [facility] POC [address] [place] [address] * ACT (Activated Clotting Time), POCT (09/22/2022 11:37 AM RESTAURANT CREW PERSON) Pathologist [facility] Activated Clot Time, Cel[place], POCT Collected DEFAULT 09/22/2022 11:37 AM RESTAURANT CREW PERSON SMLX Blood (Blood, Venous) 09/22/2022 11:37 AM [employer] CREW PERSON 09/22/2022 11:37 AM [employer] CREW PERSON Caron Thompson M.D. LAB POCT ORDERABLE S - DEVICE Performing Organization Address City/[facility] Co de Phone Number [facility] [address] [place] [address], [facility] SMLX [facility] [address] [place] [address] * (ABNORMAL) Glucose, POCT (09/22/2022 10:07 AM RESTAURANT CREW PERSON) [facility] Glucose, POCT, B 267(H) 70 - 140 mg/dL 09/22/2022 11:02 AM RESTAURANT CREW PERSON PCLX Site Capillary 09/22/2022 11:02 AM RESTAURANT CREW PERSON PCLX Last Intake NPO 09/22/2022 11:02 AM RESTAURANT CREW PERSON PCLX Blood 09/22/2022 10:0 7 AM RESTAURANT CREW PERSON 09/22/2022 11:02 AM RESTAURANT CREW PERSON Unknown Provider LAB POCT ORDERABLES- MANUAL Performing Organization Address City/[facility]/ZIP Co de Phone Number POC [facility] [address] [place] [address], [place] PCLX [facility] [address] [place] [address] * ACT (Activated Clotting Time), POCT (09/22/2022 9:38 AM RESTAURANT CREW PERSON) Pathologist [facility] Activated Clot Time, Cel[place], POCT Collected DEFAULT 09/22/2022 9:38 AM RESTAURANT CREW PERSON SMLX Blood (Blood, Venous) 09/22/2022 9:38 AM RESTAURANT CREW PERSON 09/22/2022 9:38 AM RESTAUR[employer] CREW PERSON Caron Thompson M.D. LAB POCT ORDERABLE S - DEVICE Performing Organization Address City/[facility]/ZIP Co de Phone Number [facility] [address] [place] [address], [facility] SMLX [facility] [address] [place] [address] * (ABNORMAL) ACT (Activated Clotting Time), POCT (09/22/2022 9:35 AM RESTAURANT CREW PERSON) Activated Clotting Time, POCT 227(H) 84 - 139 sec 09/22/2022 9:45 AM RESTAURANT CREW PERSON PCSM Blood 09/22/2022 9:35 AM RESTAURANT CREW PERSON 09/22/2022 9:45 AM RESTAURANT CREW PERSON Unknown Provider LAB POCT ORDERABLES - DEVICE Performing Organization Address [facility] Co de Phone Number POC [facility] [address] [place] [address], [facility] PCSM [facility] POC [address] [place] [address] * ECG 12 Lead (09/22/2022 9:12 AM RESTAURANT CREW PERSON) Ventricular Rate ECG/Min 71 BPM MUSE SD Interval 166 ms MUSE QRSD Interval 126 ms MUSE QT Interval 452 ms MUSE QTC Interval 491 ms MUSE P [place] 67 degrees MUSE R [place] -18 degrees MUSE T Wave [place] -23 degrees MUSE 09/22/2022 9:12 AM [employer]ANT CREW PERSON 09/22/2022 9:32 AM RESTAURANT CREW PERSON Impressions MUSE - 09/22/2022 9:32 AM RESTAURANT CREW PERSON Sinus rhythm Premature ventricular complexes Non-specific intra-ventricular [...] T, 2H/6H, 5th Gen (09/22/2022 9:06 AM RESTAURANT CREW PERSON) Troponin T, 2 hr, 5th gen 1704(H) <=15 ng/L 09/22/2022 9:33 AM RESTAURANT CREW PERSON STMA Comment:Consider acute myoca rdial injury 2H Delta 1637(A) ng/L 09/22/2022 9:33 AM RESTAURANT CREW PERSON STMA 2H Delta Interp Changing(A ) 09/22/2022 9:33 AM RESTAURANT CREW PERSON STMA Comment:Evaluate for acute m yocardial injury Troponin T, 6 hr, 5th gen 4533(H) <=15 ng/L 09/22/2022 1:34 PM RESTAURANT CREW PERSON STMA Comment:Consider acute myoca rdial injury 6H Delta 4466(A) ng/L 09/22/2022 1:34 PM RESTAURANT CREW PERSON STMA 6H Delta Interp Changing(A ) 09/22/2022 1:34 PM RESTAURANT CREW PERSON STMA Comment:Evaluate for acute m yocardial injury Blood (Blood, Venous) 09/22/2022 9:06 AM RESTAURANT CREW PERSON 09/22/2022 9:12 AM RESTAURANT CREW PERSON Narrative [facility] - 09/22/2022 1:34 PM RESTAURANT CREW PERSON Specimen Information: Specimen ID: [id number] Specimen Type: Blood Specimen Collection Start Date: 09/22/2022 ??9:06 AM Specimen Received Date: 09/22/2022 ??9:12 AM Specimen ID: [id number] Specimen Type: Blood Specimen Collection Start Date: 09/22/2022 ??1:07 PM Specimen Received Date: 09/22/2022 ??1:13 PM Adrián Mayers M.D. LAB BLOOD TROPONIN [facility] [address] [place] [address], [facility] [address] [place] [address] * CORONARY ANGIOGRAPHY, PERCUTANEOUS CORONARY ANGIOPLASTY, STENT PLACEMENT (09/22/2022 8:35 AM RESTAURANT CREW PERSON) Anatomical Region Laterality Modality X-Ray Angiograph y 09/22/2022 7:26 AM RESTAURANT CREW PERSON Narrative 09/24/2022 8:36 AM RESTAURANT CREW PERSON For the complete report, see the Order-Level [...] (Activated Clotting Time), POCT (09/22/2022 7:45 AM RESTAURANT CREW PERSON) Activated Clotting Time, POCT 329(H) 84 - 139 sec 09/22/2022 7:51 AM RESTAURANT CREW PERSON PCSM Blood 09/22/2022 7:45 AM RESTAURANT CREW PERSON 09/22/2022 7:51 AM RESTAURANT CREW PERSON Unknown Provider LAB POCT ORDERABLES - DEVICE POC [facility] [address] [place] [address], [facility] PCSM [facility] POC [address] [place] [address] * Critical Care (09/22/2022 7:12 AM RESTAURANT CREW PERSON) Narrative dArián Mayers M.D. - 09/22/2022 7:12 AM RESTAURANT CREW PERSON Adrián Mayers M.D. ? 09/22/2022 ??7:13 AM [...] Chest Portable 1 View (09/22/2022 6:58 AM RESTAURANT CREW PERSON) Anatomical Region Laterality Modality Chest, Thoracic RST LOS, Tho racic ARZ LOS, Thoracic FLA LOS N/A Digital Radiography 09/22/2022 7:17 AM RESTAURANT CREW PERSON Impressions 09/22/2022 8:20 AM RESTAURANT CREW PERSON No comparison. Negative chest. Narrative 09/22/2022 8:20 AM RESTAURANT CREW PERSON EXAM: ??DX CHEST PORTABLE 1 VIEW Procedure Note Raymundo Tobar M.D. - 09/22/2022 EXAM: DX CHEST PORTABLE 1 VIEW IMPRESSION: No comparison. Negative chest. Adrián Mayers M.D. IMG DIAGNOSTIC KAE GING PROCEDURES * Patient Status (09/22/2022 6:51 AM RESTAURANT CREW PERSON) Pathologist [facility] FIO2 0.21 0.21=AIR 09/22/2022 6:57 AM RESTAURANT CREW PERSON STMA Spont. breaths/min 21 09/22/2022 6:57 AM RESTAURANT CREW PERSON STMA Blood 09/22/2022 6:51 AM RESTAURANT CREW PERSON 09/22/2022 6:57 AM RESTAURANT CREW PERSON Adrián Mayers M.D. LAB BLOOD NON ADD- ON Performing Organization Address City/[facility]/ZIP Co de Phone Number [facility] [address] [place] [address] * Lactate, B (09/22/2022 6:51 AM RESTAURANT CREW PERSON) Pathologist [facility] Lactate, B 2.0 0.5 - 2.2 mmol/L 09/22/2022 7:03 AM RESTAURANT CREW PERSON STMA Blood (Blood, Venous) 09/22/2022 6:51 AM RESTAURANT CREW PERSON 09/22/2022 6:57 AM RESTAURANT CREW PERSON Adrián Mayers M.D. LAB BLOOD NON ADD- ON [facility] [address] [place] [address] * Blood Gas without Coox, Venous (09/22/2022 6:51 AM RESTAURANT CREW PERSON) pO2, Venous 25 Not applicable mm Hg 09/22/2022 7:03 AM RESTAURANT CREW PERSON STMA pCO2, Venous 48 41 - 51 mm Hg 7:03 AM RESTAURANT CREW PERSON STMA pH, Venous 7.37 7.32 - 7.43 pH 09/22/2022 7:03 AM RESTAURANT CREW PERSON STMA Base Excess, Venous 2 Not applicable mmol/L 09/22/2022 7:03 AM RESTAURANT CREW PERSON STMA HCO3, Venous 27 Not applicable mmol/L 09/22/2022 7:03 AM RESTAURANT CREW PERSON STMA Sample Site, Venous Venipunct 09/22/2022 7:03 AM RESTAURANT CREW PERSON STMA Blood (Blood, Venous) 09/22/2022 6:51 AM RESTAURANT CREW PERSON 09/22/2022 6:57 AM RESTAURANT CREW PERSON Adrián Mayers M.D. LAB BLOOD NON ADD- ON Performing Organization Address City/[facility]/ZIP Co de Phone Number [facility] [address] [place] [address], [facility] STMA [facility] [address] [place] [address] * Type and Screen (with reflex Antibody ID) (09/22/2022 6:50 AM RESTAURANT CREW PERSON) Pathologist [facility] ABORh O Pos Not applicable 09/22/2022 10:18 AM RESTAURANT CREW PERSON STRM Antibody Screen Negative Negative 09/22/2022 10:32 AM RESTAURANT CREW PERSON STRM Type & Screen Expiration 09/25/2022 23:59 09/22/2022 10:18 AM RESTAURANT CREW PERSON STRM Testing Location Cristal DEFAULT 09/22/2022 8:54 AM RESTAURANT CREW PERSON STRM Blood (Blood, Venous) 09/22/2022 6:50 AM RESTAURANT CREW PERSON 09/22/2022 8:54 AM RESTAURANT CREW PERSON Adrián Mayers M.D. LAB BLOOD BANK GABRIELA T ORDERABLES Performing Organization Address [facility] Co de Phone Number [facility] [address] [place] [address], [facility] STRM [facility] [address] [place] [address] * S-TSH (Thyroid-Stimulating Hormone - Sensitive) (09/22/2022 6:50 AM RESTAURANT CREW PERSON) Pathologist [facility] TSH, Sensitive 2.7 0.3 - 4.2 mIU/L 09/22/2022 8:01 AM RESTAURANT CREW PERSON DTL Blood (Blood, Venous) 09/22/2022 6:50 AM RESTAURANT CREW PERSON 09/22/2022 7:33 AM RESTAURANT CREW PERSON Adrián Mayers M.D. LAB BLOOD ADD-ON [facility] [address] [place] [address], [facility] [address] [place] [address] * (ABNORMAL) Troponin T, Baseline, 5th gen (09/22/2022 6:50 AM RESTAURANT CREW PERSON) Troponin T, Baseline, 5th gen 67(H) <=15 ng/L 09/22/2022 7:16 AM RESTAURANT CREW PERSON [facility] Blood (Blood, Venous) 09/22/2022 6:50 AM RESTAURANT CREW PERSON 09/22/2022 6:57 AM RESTAURANT CREW PERSON Adrián Mayers M.D. LAB BLOOD TROPONIN Performing Organization Address City/[facility]/ZIP Co de Phone Number [facility] [address] [place] [address], [facility] [address] [place] [address] * Sedimentation Rate (09/22/2022 6:50 AM RESTAURANT CREW PERSON) Sedimentation Rate, B 8 3 - 28 mm/h 09/22/2022 8:08 AM RESTAURANT CREW PERSON [facility] Blood (Blood, Venous) 09/22/2022 6:50 AM RESTAURANT CREW PERSON 09/22/2022 7:13 AM RESTAURANT CREW PERSON Adrián Mayers M.D. LAB BLOOD ADD-ON [facility] [address] [place] [address], [facility] [address] [place] [address] * (ABNORMAL) Prothrombin Time (PT) (09/22/2022 6:50 AM RESTAURANT CREW PERSON) Prothrombin Time, P 13.0(H) 9.4 - 12.5 sec 09/22/2022 7:06 AM RESTAURANT CREW PERSON STMA INR 1.2 0.9 - 1.1 09/22/2022 7:06 AM RESTAURANT CREW PERSON [facility] Comment: ----ADDITIONAL INFORMATION---- Standard intensity warfarin therapeutic range: 2.0 to 3.0 ?? High intensity warfarin therapeutic range: 2.5 to 3.5 Blood (Blood, Venous) 09/22/2022 6:50 AM RESTAURANT CREW PERSON 09/22/2022 6:57 AM RESTAURANT CREW PERSON Adrián Mayers M.D. LAB BLOOD ADD-ON Performing Organization Address [facility] Co de Phone Number [facility] [address] [place], [place] [address] [place] [address] [address] [place] [address] * NT-Pro B-Type Natriuretic Peptide (BNP) (09/22/2022 6:50 AM RESTAURANT CREW PERSON) Pathologist [facility] NT-Pro BNP 62 <=540 pg/mL 09/22/2022 7:22 AM RESTAURANT CREW PERSON [facility] Comment: NT-proBNP values less than 300 pg/mL [...] failure. Blood (Blood, Venous) 09/22/2022 6:50 AM RESTAURANT CREW PERSON 09/22/2022 6:57 AM RESTAURANT CREW PERSON Adrián Mayers M.D. LAB BLOOD ADD-ON Performing Organization Address [facility] Co de Phone Number [facility] [address] [place] [address], [facility] [address] [place] [address] * Lipase (09/22/2022 6:50 AM RESTAURANT CREW PERSON) Pathologist [facility] Lipase, S 16 13 - 60 U/L 09/22/2022 8: 01 AM RESTAURANT CREW PERSON DTL Blood (Blood, Venous) 09/22/2022 6:50 AM RESTAURANT CREW PERSON 09/22/2022 7:33 AM RESTAURANT CREW PERSON Adrián Mayers M.D. LAB BLOOD ADD-ON [facility] [address] [place] [address], [facility] [address] [place] [address] * (ABNORMAL) Hepatic Function Panel (09/22/2022 6:50 AM RESTAURANT CREW PERSON) Bilirubin, Total, S 0.7 <=1.2 mg/dL 09/22/2022 8:01 AM RESTAURANT CREW PERSON DTL Bilirubin, Direct, S 0.3 0.0 - 0.3 mg/dL 09/22/2022 8:01 AM RESTAURANT CREW PERSON DTL Aspartate Aminotransferase (AST), S 35 8 - 48 U/L 09/22/2022 8:01 AM RESTAURANT CREW PERSON DTL Alanine Aminotransferase (ALT), S 23 7 - 55 U/L 09/22/2022 8:01 AM RESTAURANT CREW PERSON DTL Alkaline Phosphatase, S 138(H) 40 - 129 U/L 09/22/2022 8:01 AM RESTAURANT CREW PERSON DTL Albumin, S 4.2 3.5 - 5.0 g/dL 09/22/2022 8:01 AM RESTAURANT CREW PERSON DTL Protein, Total, S 7.6 6.3 - 7.9 g/dL 09/22/2022 8:01 AM RESTAURANT CREW PERSON DTL Blood (Blood, Venous) 09/22/2022 6:50 AM RESTAURANT CREW PERSON 09/22/2022 7:33 AM RESTAURANT CREW PERSON Adrián Mayers M.D. LAB BLOOD ADD-ON [facility] [address] [place] [address], [facility] [address] [place] [address] * D-Dimer (09/22/2022 6:50 AM RESTAURANT CREW PERSON) D-Dimer, P 427 <=500 ng/mL FEU 09/22/2022 7:08 AM RESTAURANT CREW PERSON [facility] Comment: ----ADDITIONAL INFORMATION---- D-dimer values less than or equal to 500 ng/mL fibrinogen equivalent units (FEU) may be used in conjunction with clinical pre-test probability to exclude deep vein thrombosis (DVT) and/or pulmonary embolism (PE). Blood (Blood, Venous) 09/22/2022 6:50 AM RESTAURANT CREW PERSON 09/22/2022 6:57 AM RESTAURANT CREW PERSON Adrián Mayers M.D. LAB BLOOD ADD-ON [facility] [address] [place] [address], [facility] [address] [place] [address] * (ABNORMAL) CBC with Differential, Blood (09/22/2022 6:50 AM RESTAURANT CREW PERSON) Hemoglobin 14.8 13.2 - 16.6 g/dL 09/22/2022 7:00 AM RESTAURANT CREW PERSON STMA Hematocrit 46.2 38.3 - 48.6 % 09/22/2022 7:00 AM RESTAURANT CREW PERSON STMA Erythrocytes 5.49 4.35 - 5.65 x10(12)/L 09/22/2022 7:00 AM RESTAURANT CREW PERSON [facility] MCV 84.2 78.2 - 97.9 fL 09/22/2022 7:00 AM RESTAURANT CREW PERSON STMA RBC Distrib Width 13.9 11.8 - 14.5 % 09/22/2022 7:00 AM RESTAURANT CREW PERSON STMA Platelet Count 353(H) 135 - 317 x10(9)/L 09/22/2022 7:00 AM RESTAURANT CREW PERSON STMA Leukocytes 9.6 3.4 - 9.6 x10(9)/L 09/22/2022 7:00 AM RESTAURANT CREW PERSON STMA Neutrophils 7.65(H) 1.56 - 6.45 x10(9)/L 09/22/2022 7:00 AM RESTAURANT CREW PERSON STMA Lymphocytes 1.17 0.95 - 3.07 x10(9)/L 09/22/2022 7:00 AM RESTAURANT CREW PERSON STMA Monocytes 0.64 0.26 - 0.81 x10(9)/L 09/22/2022 7:00 AM RESTAURANT CREW PERSON STMA Eosinophils 0.05 0.03 - 0.48 x10(9)/L 09/22/2022 7:00 AM RESTAURANT CREW PERSON STMA Basophils 0.04 0.01 - 0.08 x10(9)/L 09/22/2022 7:00 AM RESTAURANT CREW PERSON STMA Blood (Blood, Venous) 09/22/2022 6:50 AM RESTAURANT CREW PERSON 09/22/2022 6:57 AM RESTAURANT CREW PERSON Adrián Mayers M.D. LAB BLOOD ADD-ON [facility] [address] [place] [address], [facility] STMA [facility] [address] [place] [address] * (ABNORMAL) Basic Metabolic Panel (09/22/2022 6:50 AM RESTAURANT CREW PERSON) Potassium, P 3.7 3.6 - 5.2 mmol/L 09/22/2022 7:24 AM [employer] [facility] Sodium, P 135 135 - 145 mmol/L 09/22/2022 7:24 AM [employer] [facility] Chloride, P 96(L) 98 - 107 mmol/L 09/22/2022 7:24 AM [employer] [facility] Bicarbonate, P 25 22 - 29 mmol/L 09/22/2022 7:24 AM [employer] [facility] Anion Gap, P 14 7 - 15 09/22/2022 7:24 AM [employer] [facility] BUN (Blood Urea Nitrogen), P 18 8 - 24 mg/dL 09/22/2022 7:24 AM [employer] [facility] Creatinine 0.77 0.74 - 1.35 mg/dL 09/22/2022 7:24 AM [employer] [facility] Estimated GFR (eGFR) >90 >=60 mL/min/BSA 09/22/2022 7:24 AM [employer] [facility] Comment: Estimated GFR calculated using the 2020 CKD_EPI creatinine equation. Calcium, Total, P 9.1 8.8 - 10.2 mg/dL 09/22/2022 7:24 AM [employer] [facility] Glucose, P 360(H) 70 - 140 mg/dL 09/22/2022 7:24 AM [employer] [facility] Blood (Blood, Venous) 09/22/2022 6:50 AM [employer] 09/22/2022 6:57 AM [employer] Adrián Mayers M.D. LAB BLOOD ADD-ON Performing Organization Address City/[facility]/ZIP Co de Phone Number [facility] [address] [place] [address], [facility] [address] [place] [address] * ECG 12 Lead (09/22/2022 6:44 AM [employer]) Ventricular Rate ECG/Min 67 BPM MUSE SD Interval 160 ms MUSE QRSD Interval 132 ms MUSE QT Interval 444 ms MUSE QTC Interval 469 ms MUSE P [place] 19 degrees MUSE R [place] 3 degrees MUSE T Wave [place] 55 degrees MUSE 09/22/2022 6:44 AM [employer] 09/25/2022 1:07 PM [employer] Impressions MUSE - 09/25/2022 1:08 PM [employer] Normal sinus rhythm Non-specific intra-ventricular conduction block Cannot rule out Anteroseptal infarct ST elevation in Inferolateral leads - possible acute injury ST depression Anteroseptal leads - likely posterior injury given ST elevation in posterior leads ACUTE [place] / STEMI Posterior chest leads were recorded. There was evidence of injury. Narrative Procedure Note Medardo Hyatt M.D. - 09/25/2022 IMPRESSION: Normal sinus rhythm Non-specific intra-ventricular conduction block Cannot rule out Anteroseptal infarct ST elevation in Inferolateral leads - possible acute injury ST depression Anteroseptal leads - likely posterior injury given STelevation in posterior leads ACUTE [place] / STEMI Posterior chest leads were recorded. There was evidence of injury. Cy Boles APRN, C.N.P., D.N.P., M.S.N . ECG ORDERABLES Performing Organization Address [facility] Co de Phone Number MUSE NA * ECG 12 Lead (09/22/2022 6:43 AM [employer]) Ventricular Rate ECG/Min 71 BPM MUSE SD Interval 166 ms MUSE QRSD Interval 130 ms MUSE QT Interval 440 ms MUSE QTC Interval 478 ms MUSE P [place] 40 degrees MUSE R [place] -1 degrees MUSE T Wave [place] 59 degrees MUSE 09/22/2022 6:43 AM [employer] 09/22/2022 7:01 AM [employer] Impressions MUSE - 09/22/2022 7:01 AM [employer] Normal sinus rhythm Non-specific intra-ventricular conduction block [...] Coronary Artery (HCC) 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 Diabetes Mellitus Type 2 (HCC) Hypertension Essential Primary ST Elevation Myocardial Infarction Involving Left Circumflex Coronary Artery (HCC) Atherosclerotic Heart Disease Of [place] Coronary Artery Without Angina Pectoris documented in this encounter Admitting Diagnoses Diagnosis ST Elevation Myocardial Infarction Involving Left Circumflex Coronary Artery (HCC) Atherosclerotic Heart Disease Of [place] Coronary Artery Without Angina Pectoris documented in [...] daily from all sources aspirin chewable tablet 243 mg 243 mg, oral, Once, On 09/25/22 at 0845, For 1 dose, Preprocedure (CV) Given 09/25/2022 8:33 AM [employer] 243 mg aspirin chewable tablet 324 mg 324 mg, oral, Once, On 09/22/22 at 0653, For 1 dose Given 09/22/2022 6:55 AM [employer] 162 mg aspirin chewable tablet 81 mg 81 mg, oral, Daily, First dose on Sat09/23/22 at 0900, Postprocedure (CV) Given 09/26/2022 8:02 AM [employer] 81 mg Given 09/25/2022 8:12 AM [employer] 81 mg Given 09/24/2022 8:50 AM [employer] 81 mg atorvastatin tablet 80 mg (LIPITOR) 80 mg, oral, Daily, First dose (after last modification) on Sat09/23/22 at 0900 Given 09/26/2022 8:02 AM [employer] 80 mg Given 09/25/2022 8:12 AM [employer] 80 mg Given 09/24/2022 8:50 AM [employer] 80 mg atropine injection 0.5 mg 0.5 [...] 2 hours - give rectal suppository. clopidogreL (PLAVIX) 300 mg tablet - ADS Override Pull Starting on 09/22/22 at 0654, For 1 dose, Created by cabinet override clopidogreL tablet 600 mg (PLAVIX) 600 mg, oral, Once, On 09/22/22 at 0703, For 1 dose Given 09/22/2022 7:00 AM [employer] 600 mg clopidogreL tablet 75 mg (PLAVIX) 75 mg, oral, Daily, First dose on Sat09/23/22 at 0900, Postprocedure (CV) Given 09/26/2022 8:02 AM [employer] 75 mg Given 09/25/2022 8:12 AM [employer] 75 mg Given 09/24/2022 8:50 AM [employer] 75 mg docusate sodium capsule 100 mg (COLACE) 100 mg, oral, 2 times daily PRN, constipation, Starting on Sat09/25/22 at 1205, Postprocedure (CV), Do NOT crush or chew. fentaNYL injection 25 mcg (SUBLIMAZE) 25 mcg, intravenous, Once as needed, moderate pain or score 4-6 of 10, severe pain or score 7-10 of 10, Until sheath removal., Starting on Sat09/25/22 at 1205, For 1 dose, Postprocedure (CV) Given 09/25/2022 2:15 PM [employer] 25 mcg furosemide injection 40 mg (LASIX) 40 mg, intravenous, Once, On Sat09/24/22 at 1115, For 1 dose, Adults: Doses less than 120 mg: IV push over 20 mg/minute. Doses 120 mg or greater: IVPB at 4 mg/minute. Peds/Neonates: Doses less than 120 mg over 0.5 mg/kg/minute. Doses 120 mg or greater: IVPB at 4 mg/minute. Given 09/24/2022 11:33 AM [employer] 40 mg furosemide injection 40 mg (LASIX) 40 mg, intravenous, Once, On Sat09/26/22 at 0900, For 1 dose, Adults: Doses less than 120 mg: IV push over 20 mg/minute. Doses 120 mg or greater: IVPB at 4 mg/minute. Peds/Neonates: Doses less than 120 mg over 0.5 mg/kg/minute. Doses 120 mg or greater: IVPB at 4 mg/minute. Given 09/26/2022 9:17 AM [employer] 40 mg furosemide tablet 20 mg (LASIX) 20 mg, oral, Once, On 09/23/22 at 1715, For 1 dose Given 09/23/2022 5:24 PM [employer] 20 mg furosemide tablet 40 mg (LASIX) 40 mg, oral, Daily, First dose on [place] 09/27/22 at 0900 heparin (porcine) 1,000 unit/mL injection 5,400 Units 5,400 Units, intravenous, Once, On 09/22/22 at 0703, For 1 dose Given 09/22/2022 7:04 AM [employer] 5,400 Units heparin (porcine) injection 5,000 Units 5,000 Units, subcutaneous, Every 8 hours scheduled, First dose (after last modification) on Sat09/23/22 at 0800 Given 09/23/2022 2:05 PM [employer] 5,000 Units Left Lower Abdomen Given 09/23/2022 9:07 AM [employer] 5,000 Units L eft Lower Abdomen heparin (porcine) injection 5,000 Units 5,000 Units, subcutaneous, Every 8 hours scheduled, First dose (after last modification) on Sat09/23/22 at 2200, For 4 doses Given 09/24/2022 9:14 PM [employer] 5,000 Units Left Lower Abdomen Given 09/24/2022 1:30 PM [employer] 5,000 Units R ight Lower Abdomen Given 09/24/2022 6:15 AM [employer] 5,000 Units L eft Lower Abdomen insulin aspart U-100 (Carbohydrate Count) injection 0-20 Units (NovoLOG FlexPen) 0-20 Units, subcutaneous, 3 times daily with meals, First dose on Sat09/23/22 at 1700, Simple or Complex Ratio: Simple, Carb Ratio - Simple (1 unit per __ grams of carbohydrates): 8 Given 09/24/2022 5:57 PM [employer] 3 Units Left Lower Abdomen Given 09/24/2022 12:54 PM [employer] 8 Units R ight Lower Abdomen Given 09/24/2022 10:03 AM [employer] 10 Units L eft Lower Abdomen insulin aspart U-100 (Carbohydrate Count) injection 0-40 Units (NovoLOG FlexPen) 0-40 Units, subcutaneous, 3 times daily with meals, First dose (after last modification) on Sat09/25/22 at 0800, Simple or Complex Ratio: Simple, Carb Ratio - Simple (1 unit per __ grams of carbohydrates): 6 Given 09/26/2022 12:15 PM [employer] 6 Units Right Lower Abdomen Given 09/26/2022 7:58 AM [employer] 8 Units Le ft Lower Abdomen Given 09/25/2022 5:55 PM [employer] 6 Units Le ft Lower Abdomen insulin aspart U-100 injection 0-13 Units (NovoLOG FlexPen) 0-13 Units, subcutaneous, 3 times daily, First dose on Sat09/22/22 at 1200, Insulin Scale: Moderate Correction Scale, 140 - 179: 2 units, 180 - 219: 4 units, 220 - 259: 6 units, 260 - 299: 8 units, 300 - 339: 10 units, 340 - 379: 12 units, 380 - 399: 13 units, Greater than 399: Call service writing Insulin orders Given 09/22/2022 6:27 PM [employer] 4 Units Left Upper Abdomen Given 09/22/2022 1:15 PM [employer] 8 Units Le ft Lower Abdomen insulin aspart U-100 injection 0-21 Units (NovoLOG FlexPen) 0-21 Units, subcutaneous, 3 times daily, First dose (after last modification) on [place] 09/23/22 at 0730, Insulin Scale: Individualized Correction Scale, 140 - 179: 3, 180-219: 6, 220-259: 9, 260-299: 12, 300-339: 15, 340-379: 18, 380-399: 21, Greater than 399: Call service writing Insulin orders Given 09/26/2022 12:15 PM [employer] 12 Units Right Lower Abdomen Given 09/26/2022 7:59 AM [employer] 12 Units Le ft Lower Abdomen Given 09/25/2022 5:55 PM [employer] 3 Units Le ft Upper Abdomen insulin aspart U-100 injection 10 Units (NovoLOG FlexPen) 10 Units, subcutaneous, 3 times daily, First dose (after last modification) on [place] 09/23/22 at 0800, HOLD if not eating Given 09/23/2022 12:04 PM [employer] 10 Units Right Lower Abdomen Given 09/23/2022 9:14 AM [employer] 10 Units Ri ght Lower Abdomen insulin aspart U-100 injection 6 Units (NovoLOG FlexPen) 6 Units, subcutaneous, 3 times daily, First dose on [facility] 09/22/22 at 1215, HOLD if not eating Given 09/22/2022 6:29 PM [employer] 6 Units Left Upper Abdomen insulin glargine injection 44 Units 44 Units, subcutaneous, Every morning, First dose on [facility] 09/22/22 at 1215 Given 09/22/2022 5:00 PM [employer] 44 Units Left Upper Abdomen insulin glargine injection 50 Units 50 Units, subcutaneous, Every morning, First dose (after last modification) on [place] 09/23/22 at 0730 Given 09/26/2022 8:02 AM [employer] 50 Units Left Lower Abdomen Given 09/25/2022 8:13 AM [employer] 50 Units Le ft Lower Abdomen Given 09/24/2022 8:54 AM [employer] 50 Units Le ft Lower Abdomen losartan tablet 25 mg (COZAAR) 25 mg, oral, Daily, First dose on Sat09/22/22 at 2330 Given 09/23/2022 12:10 AM [employer] 25 mg losartan tablet 25 mg (COZAAR) 25 mg, oral, Daily, First dose (after last modification) on Sat09/24/22 at 1115 Given 09/25/2022 8:12 AM [employer] 25 mg Given 09/24/2022 11:33 AM [employer] 25 mg losartan tablet 50 mg (COZAAR) 50 mg, oral, Daily, First dose (after last modification) on Sat09/26/22 at 0900 Given 09/26/2022 9:17 AM [employer] 50 mg metoprolol succinate 24 hr tablet 50 mg (TOPROL-XL) 50 mg, oral, Daily, First dose on Sat09/26/22 at 0900, Do NOT crush or chew. Tablet may be split on score if needed. Given 09/26/2022 8:02 AM [employer] 50 m g metoprolol tablet 12.5 mg (LOPRESSOR) 12.5 mg, oral, Every 6 hours, First dose on Sat09/22/22 at 0930 Given 09/22/2022 10:10 AM [employer] 12.5 mg metoprolol tablet 12.5 mg (LOPRESSOR) 12.5 mg, oral, 2 times daily, First dose on Sat09/22/22 at 2100 Given 09/24/2022 8:50 AM [employer] 12.5 mg Given 09/23/2022 9:25 PM [employer] 12.5 mg Given 09/23/2022 9:07 AM [employer] 12.5 mg metoprolol tartrate tablet 25 mg (LOPRESSOR) 25 mg, oral, 2 times daily, First dose (after last modification) on Sat09/24/22 at 2100, For 3 doses Given 09/25/2022 8:55 PM [employer] 25 mg Given 09/25/2022 8:12 AM [employer] 25 mg Given 09/24/2022 9:14 PM [employer] 25 mg NaCl 0.9 % bolus 1,000 mL 1,000 mL, intravenous, at 1,000 mL/hr, Administer over 1 Hours, Once, On 09/22/22 at 0655, For 1 dose New Bag 09/22/2022 6:58 AM [employer] 1,000 mL 1000 mL/hr NaCl 0.9 % bolus 250 mL 250 mL, intravenous, at 1,000 mL/hr, Administer over 15 Minutes, Once, On Sat09/25/22 at 1215, For 1 dose, Postprocedure (CV) New Bag 09/25/2022 12:51 PM [employer] 250 mL 1000 mL/hr naloxone injection 0.2 mg (NARCAN) 0.2 mg, intravenous, As needed, respiratory depression, Starting on Sat09/25/22 at 1205, Postprocedure (CV), For RASS Score -4 or less, respiratory rate of less than 8 breaths/min. Notify provider/service and rapid response team (if available at institution). nitroglycerin 200 mcg/mL in D5W 250 mL infusion (TRIDIL) 5-100 mcg/min (1.5-30 mL/hr), intravenous, Continuous, Starting on 09/22/22 at 0653, bottle: 50 mg in 250 mL, Initiate at: 5 mcg/min, 5 mcg/min, Titrate at: 5 mcg/min. every 5 min., Goal: Relieve chest pain, MAP 60-80 Rate/Dose Change 09/22/2022 7:08 AM [employer] 15 mcg/min 4.5 mL/hr Rate/Dose Change 09/22/2022 7:01 AM [employer] 10 mcg/min 3 mL/hr New Bag 09/22/2022 6:56 AM [employer] 5 mcg/min 1.5 mL/hr potassium chloride ER tablet 20 mEq (KLORCON/K-TAB) 20 mEq, oral, Once, On Sat09/24/22 at 0730, For 1 dose, Swallow whole. Do NOT crush, chew, or split tablet. Given 09/24/2022 8:50 AM [employer] 20 mEq promethazine injection 6.25 mg (PHENERGAN) 6.25 mg, [...] to maintain patency Given 09/26/2022 8:03 AM [employer] 3 mL Given 09/25/2022 8:56 PM [employer] 3 mL Given 09/25/2022 8:18 AM [employer] 3 mL sulfur hexafluoride microspheres injection (LUMASON) intravenous, As needed, contrast, Starting on 09/22/22 at 1607, Intraprocedure - Diagnostic, See protocol. Reconstitute each 25 mg vial with 5 mL NS. Given 09/22/2022 4:07 PM [employer] 1.5 mL documented in this encounter Active and Recently Administered Medications Times are shown in [employer]. Scheduled Medication Order 09/24/2022 09/25/2022 09/26/2022 aspirin chewable tablet 243 mg (COMPLETED) 243 mg, oral, Once, On Tu09/25/22 at 0845, For 1 dose, Preprocedure (CV) 0833 (Given - Provider: Daisy Landon R.N.) aspirin chewable tablet 81 mg 81 mg, oral, Daily, First dose on 09/23/22 at 0900, Postprocedure (CV) 0850 (Given - Provider: Obdulia Valencia RLilia.) 0812 (Given - Provider: Christiane Arias RLilia.)0823 (SEP Hold - Provider: Transfer Provider, Automatic - Reason: Patient not available)1201 (MAR Unhold - Provider: Transfer Provider, Automatic) 0802 (Given - Provider: Adan Esparza RAnaliN.) atorvastatin tablet 80 mg (LIPITOR) 80 mg, oral, Daily, First dose (after last modification) on 09/23/22 at 0900 0850 (Given - Provider: Obdulia Valencia RLilia.) 0812 (Given - Provider: Christiane Arias R.N.)0823 [...] mg/minute. 1133 (Given - Provider: Obdulia Valencia R.N.) furosemide injection 40 mg (LASIX) (COMPLETED) 40 mg, intravenous, Once, On Sat09/26/22 at 0900, For 1 dose, Adults: Doses less than 120 mg: IV push over 20 mg/minute. Doses 120 mg or greater: IVPB at 4 mg/minute. Peds/Neonates: Doses less than 120 mg over 0.5 mg/kg/minute. Doses 120 mg or greater: IVPB at 4 mg/minute. 0917 (Given - Provider: Adan Esparza R.N.) furosemide tablet 40 mg (LASIX) 40 mg, oral, Daily, First dose on [place] 09/27/22 at 0900 heparin (porcine) injection 5,000 Units (COMPLETED) 5,000 Units, subcutaneous, Every 8 hours scheduled, First dose (after last modification) on 09/23/22 at 2200, For 4 doses 0615 (Given - Provider: Randa W Cait, R.N.)1330 (Given - Provider: Obdulia Valencia RAnaliN.)2114 (Given - Provider: Jake Swan RAnaliNAnali) insulin aspart U-100 (Carbohydrate Count) injection 0-20 Units (NovoLOG FlexPen) (CANCELED) 0-20 Units, subcutaneous, 3 times daily with meals, First dose on Sat09/23/22 at 1700, Simple or Complex Ratio: Simple, Carb Ratio - Simple (1 unit per __ grams of carbohydrates): 8 1003 (Given - Provider: Obdulia Valencia R.N. - Comment: pt eating)1254 (Given - Provider: Matthew Tubbs.Celeste.)1757 (Given - Provider: Matthew Tubbs.N.) insulin aspart U-100 (Carbohydrate Count) injection 0-40 Units (NovoLOG FlexPen) 0-40 Units, subcutaneous, 3 times daily with meals, First dose (after last modification) on Sat09/25/22 at 0800, Simple or Complex Ratio: Simple, Carb Ratio - Simple (1 unit per __ grams of carbohydrates): 6 0758 (Not Given - Provider: Christiane Arias R.N. - Reason: NPO)0823 (MAR Hold - Provider: Transfer Provider, Automatic - Reason: Patient not available)1200 (Dose Auto Held - Provider: Transfer Provider, Automatic)1201 (MAR Unhold - Provider: Transfer Provider, Automatic)1324 (Not Given - Provider: Christiane Arias R.N. - Reason: Other)1755 (Given - Provider: Christiane Arias RAnaliN.) 0758 (Given - Provider: Adan Esparza R.N.)1215 [...] Obdulia Valencia R.N.) 0812 (Given - Provider: Gabi CervantesNAnali)0823 (SEP Hold - Provider: Transfer Provider, Automatic - Reason: Patient not available)1200 (Dose Auto Held - Provider: Transfer Provider, Automatic)1201 (SEP Unhold - Provider: Transfer Provider, Automatic)1310 (Given - Provider: Christiane Arias R.N. - Comment: pt returned and MAR unheld)1755 (Given - Provider: Christiane Arias R.N.) 0759 (Given - Provider: Adan Esparza R.N. - Comment: 267)1215 (Given - Provider: Christiane Arias R.N.) insulin glargine injection 50 Units 50 Units, subcutaneous, Every morning, First dose (after last modification) on Sat09/23/22 at 0730 0854 (Given - Provider: Obdulia Valencia R.N.) 0813 (Given - Provider: Christiane Arias R.N.) 0802 (Given - Provider: Adan Esparza R.N.) losartan tablet 25 mg (COZAAR) (CANCELED) 25 mg, oral, Daily, First dose (after last modification) on Sat09/24/22 at 1115 1133 (Given - Provider: Obdulia Valencia RBereket) 0812 (Given - Provider: Christiane Arias RAnaliNAnali)0823 (SEP Hold - Provider: Transfer Provider, Automatic [...] score if needed. 0802 (Given - Provider: Matthew AlvaresBereket) metoprolol tablet 12.5 mg (LOPRESSOR) (CANCELED) 12.5 mg, oral, 2 times daily, First dose on Sat09/22/22 at 2100 0850 (Given - Provider: Obdulia Valencia R.N.) metoprolol tartrate tablet 25 mg (LOPRESSOR) (COMPLETED) 25 mg, oral, 2 times daily, First dose (after last modification) on Sat09/24/22 at 2100, For 3 doses 2114 (Given - Provider: Jake Swan RAnaliN.) 0812 (Given - Provider: Christiane Arias RAnaliN.)0823 (SEP Hold - Provider: Transfer Provider, Automatic - Reason: Patient not available)120 (SEP Unhold - Provider: Transfer Provider, Automatic)2054 (Given - Provider: Namita Baker R.N.) NaCl 0.9 % bolus 250 mL (COMPLETED) 250 mL, intravenous, at 1,000 mL/hr, Administer over 15 Minutes, Once, On Sat09/25/22 at 1215, For 1 dose, Postprocedure (CV) 1251 (New Bag - Provider: Christinae Arias RAnaliNAnali) potassium chloride ER tablet 20 mEq (KLORCON/K-TAB) (COMPLETED) 20 mEq, oral, Once, On Sat09/24/22 at 0730, For 1 dose, Swallow whole. Do NOT crush, chew, or split tablet. 0850 (Given - Provider: Obdulia Valencia RBereket) sodium chloride 0.9 % injection 3 mL 3 mL, intravenous, Every 12 hours scheduled, First dose on Sat09/22/22 at 0900, Peripheral Intravenous Catheter and Rapid Infusion Catheter, when no infusion to maintain patency 0851 (Given - Provider: Obdulia Valencia RAnaliN.)2114 (Given - Provider: Jake Swan RAnaliN.) 0818 (Given - Provider: Christiane Arias RAnaliN.)0823 (SEP Hold - Provider: Transfer Provider, Automatic - Reason: Patient not available)120 (MAR Unhold - Provider: Transfer Provider, Automatic)2055 (Given - Provider: Namita Baker R.N.) 0803 (Given - Provider: Adan Esparza R.N.) PRN Medication Order 09/24/2022 09/25/2022 09/26/2022 acetaminophen tablet 325 mg (TYLENOL) 325 mg, oral, 3 times daily PRN, mild pain or score 1-3 of 10, moderate pain or score 4-6 of 10, Starting on 09/22/22 at 1249, Postprocedure (CV), Do not exceed 4 grams daily from all sources 0823 (SEP Hold - Provider: Transfer Provider, Automatic - Reason: Patient not available)1201 (SEP Unhold - Provider: Transfer Provider, Automatic) atropine [...] 10, Starting on 09/22/22 at 1249 0823 ([facility] Hold - Provider: Transfer Provider, Automatic - Reason: Patient not available)1201 ([facility] Unhold - Provider: Transfer Provider, Automatic) promethazine injection 6.25 mg (PHENERGAN) 6.25 mg, intravenous, Every 6 hours PRN, nausea, vomiting, Starting on 09/25/22 at 1205, Postprocedure (CV), RASS must be [...] blood transfusion or post blood sampling 0823 ([facility] Hold - Provider: Transfer Provider, Automatic - Reason: Patient not available)1201 ([facility] Unhold - Provider: Transfer Provider, Automatic) sodium chloride 0.9 % injection 3 mL 3 mL, intravenous, As needed, line care, Starting on 09/22/22 at 0651, Prior to and following infusion and between multiple consecutive infusions: sodium chloride 0.9 % injection 0823 ([facility] Hold - Provider: Transfer Provider, Automatic - Reason: Patient not available)1201 ([facility] Unhold - Provider: Transfer Provider, Automatic) documented in this encounter Care Teams Evaluation Specialist Relationship Specialty Start Date End Date None Reported, Pcp PCP - General Family Medicine 09/22/22 documented as of this encounter
--- OUTSIDE RECORDS SUMMARY | 2023-08-14 09:42 | XMS_ITS | Encounter Summary ---
Author Name Unknown Organization [facility] Address [address] [place] [address] Care Team Providers Care Cake Stripper Name Role Phone None Reported, Pcp Primary Care Provider Unavail able Reason for Visit * Reason Comments Chest Pain * Auth/Cert (Routine) Specialty Diagnoses / Procedures Referred By Nadiya t Referred To Contact Diagnoses ST Elevation Myocardial Infarction Of Unspecified Site (HCC) ST Elevation Myocardial Infarction Involving Left Circumflex Coronary Artery (HCC) Procedures [facility] INIT HOSP IP/OBS SF/LOW Referral ID Status Reason Start Date Expiration Date Visits Re quested Visits Authorized [id number] 1 1 Encounter Details Date Type Department Care Team (Late st Contact Info) Description 09/22/2022 7:30 AM CADDIE - 09/22/2022 8:45 AM CADDIE Surgery Division of Cardiovascular Diseases in [place], [place] [address] [place] [address] Mike Garcia M.D., Ph.D. [address] [place] [address] CORONARY ANGIOGRAPHY Social History Tobacco Use Types Packs/Day Years [...] Sign Reading Time Taken Comments Blood Pressure 136/70 09/22/2022 8:45 AM CADDIE Pulse 74 09/22/2022 8:45 AM CADDIE Temperature 36.8 ??C (98.2 ??F) 09/22/2022 8:45 AM CS T Respiratory Rate 18 09/22/2022 8:45 AM CADDIE Oxygen Saturation 96% 09/22/2022 8:45 AM CADDIE Inhaled Oxygen Concentration - - Weight 90.7 kg (200 lb) 09/22/2022 6:37 AM CADDIE Height 172.7 cm (5' 8) 09/22/2022 6:51 AM CADDIE Body Mass Index 29.73 09/22/2022 10:15 AM CADDIE documented in this encounter Discharge Summaries * [...] 2:00 PM RST INTAKE VISIT POD A Admitting/Central Scheduling 12/20/2022 10:10 AM ECHO (16) KUSHO 06 136 Cardiovascular Disease 12/20/2022 1:00 PM [facility] Cardiovascular Disease For appointment details refer to your Patient Appointment Guide. HOSPITAL COURSE: Admission Weight: 90.7 kg Dismissal Weight: 88 kg BMI: Body mass index is 29.73 kg/m??. Mr. Julius Ramos is a 77 y.o. male who presented to [facility] Emergency Department on 09/22/2022 with chest [...] to previous diet PRIMARY PROVIDER: No care state farm agent team member to display Primary Care Providers: None Reported, Pcp (General) No address on file Primary Care Provider Phone Number: None Primary Care Provider Fax Number: None IE * Daisy Moore APRN, C.N.P. - 09/23/2022 [...] hyperlipidemia. Mr. Ramos proceeded directly to the laborer chemical processing which showed thrombotic occlusion of the left [...] service on 09/23. Upon arrival he appeared [id number] volume overloaded with lower extremity edema and [...] Full Code Disposition: Home - self care IE * Caron Thompson M.D. - 09/23/2022 9:24 [...] Please page CICU service with any questions. IE documented in this encounter Discharge Instructions * Discharge Instructions* Easton Nielson - 09/26/2022 9:50 AM CADDIE BLOOD GLUCOSE MANAGEMENT: Monitor blood glucose four times daily before meals and at bedtime. Blood glucose goal is 100-140 mg/dL. Most recent A1c on record: Lab Results Component Value Date HGBA1C 10.1 (H) 09/23/2022 Follow-up with primary care provider within 7-10 days of discharge or earlier if blood glucose values are consistently out of goal range. Call in [facility]: Please call [facility] at (pager [phone]) from 7:30 AM to 9:00 AM for [...] management, yearly follow up with a local Ferris Wheel Attendant and Dietitian is recommended. Please check with your insurance company as diabetes education visits are commonly covered. Your primary care provider can provide referrals for education. You were discharged from the RST CARD 4 Service. Please identify this service name if you call withquestions after hospitalization. IE * Attachments The following attachments cannot be sent through Care Everywhere. * Clopidogrel (By mouth) (Martiniquais) * Furosemide (By mouth) (Martiniquais) * Metoprolol (By mouth) (Martiniquais) * Nitroglycerin, Rapid Release (By mouth) (Martiniquais) documented in this encounter Medications at Time [...] Do not crush or chew. 30 tablet 09/26/2022 oxyCODONE-acetaminophe n (PERCOCET) 5-325 mg per [...] this encounter Progress Notes * Abdias Edgar RAnaliN. - 09/26/2022 11:59 AM CST Ed visit [...] Diabetes Education if further educational needs arise. IE * Torres Morin M.D. - 09/25/2022 2:36 PM CST I have discussed the care of Julius Ramos with Denny Mena and agree with the documentation dated 09/25/22. Please see his note for full details. Briefly, the patient is a 77 yo M w/ HTN, HLD, T2DM (A1c 10.1) who presented with a lateral STEMI s/p TAMMIE to [facility] with staged-PCI of the [facility] s/p atherectomy and TAMMIE to [facility] 09/[address] Garcia. TTE from 09/22 shows LVEF 40%, normal RV, grade 1/3 diastolic dysfunction. Plan for Today: Continue DAPT, atorvastatin, losartan, metoprolol Consider MRA and SGLT2i for HFrEF Patient's case was staffed with Dr. House. Torres Morin MD Cardiovascular Medicine Fellow, PGY-4 IE * Afshan Otero APRN, C.N.P., D.N.P. - 09/25/2022 10:14 AM CADDIE SUBJECTIVE LOS: 3 days DCS continues to [...] in agreement with the plan. DCS pager [phone] will continue to follow. Call primary service for diabetes concerns between [phone]. Primary service to contact asset protection representative Endo fellow via hospital power shovel operator for questions. IE * Kaleigh Chopra PharmKathleen, R.Ph. - 09/25/2022 8:19 AM CST Pharmacist Progress Note Reason for admission: STEMI->thrombotic occlusion L Cx and severe stenosis RCA-> PTCA/ATMMIE L Cx PMH: DM OBJECTIVE CV: CAD-ASA 81 mg Clopidogrel 75 mg Metoprolol 25 mg bid, losartan 25 mg Atorvastatin 40 mg Neph: Serum creatinine: 0.8 mg/dL 09/25/22 0640 Estimated creatinine clearance: 99.9 mL/min Endo: CSI ASP 10 TIDM GLA 50 PPX: SQ Heparin Medication Reconciliation: Held: metformin, hydrochlorothiazide 25 mg Changed: atorvastatin 20 mg -> 80 mg (noted post MS LDL 54 non HDL 71) ; losartan 50 mg->25 mg New: metoprolol, clopidogrel ASSESSMENT / PLAN STEMI- Plan atherectomy for stenotic RCA on 09/25 (unable to pass heavily calcified stenosis) , resumed home statin (increased dose), potential addition of spironolactone prior to discharge and conversion of Metop IR > XL Kaleigh Chopra Pharm.D., R.Ph. IE * Denny Mena P.A.-C. - 09/25/2022 7:20 [...] lateral leads. He proceeded directly to the laborer chemical processing where he underwent drug-eluting stent placement to [...] 35 minutes providing and coordinating care today. IE * Denny Mena P.A.-C. - 09/24/2022 7:24 [...] lateral leads. He proceeded directly to the laborer chemical processing where he underwent drug-eluting stent placement to [...] 35 minutes providing and coordinating care today. IE * Jenny Tobias APRN, C.N.P. - 09/23/2022 [...] in agreement with the plan. DCS pager [phone] will follow. Call primary service for diabetes concerns between [phone]. Primary service to contact asset protection representative Endo fellow via hospital power shovel operator for questions a hospital power shovel operator for questions. ADDENDUM: 1700 Patient transferred out of ICU. Will start Novolog via Insulin to CHO for meals, starting with 1 unit per 8GMs. All other plan as above. IE * Nelson Easton, Lupe.D., R.Ph. - 09/23/2022 2:17 PM CST Images [...] mouth every 6 (six) hours as needed. IE * Caron Thompson M.D. - 09/23/2022 7:56 [...] to floor Plan discussed with Cardiac ICU makeup sales consultant and fellow, who were present during diggs portions of the evaluation today. Please page the service pager [phone] with any questions. IE * Deanne Langford M.D. - 09/23/2022 6:54 [...] to the floor. Deanne Langford M.D. 09/23/2022 IE * Nelson Easton Pharm.D., R.Ph. - 09/23/2022 5:40 AM CST Pharmacist Progress Note Reason for admission: STEMI->thrombotic occlusion L Cx and severe stenosis RCA-> PTCA/TAMMIE L Cx PMH: DM OBJECTIVE CV: CAD-ASA 81 mg Clopidogrel 75 mg Metoprolol 12.5 mg bid, losartan 25 mg Atorvastatin 40 mg Neph: Serum creatinine: 0.69 mg/dL (L) 09/23/226 Estimated creatinine clearance: 100.7 mL/min (A) Endo: CSI ASP 10 TIDM GLA 50 PPX: SQ Heparin Medication Reconciliation: Held: metformin, hydrochlorothiazide 25 mg Changed: atorvastatin 20 mg -> 40 mg (noted post MS LDL 54 non HDL 71) ; losartan 50 mg->25 mg New: metoprolol ASSESSMENT / PLAN STEMI- Plan atherectomy for stenotic RCA on 09/25 (unable to pass heavily calcified stenosis) , resumed home statin (consider increased dose) , adding spironolactone Nelson Easton PharmAnaliD., R.Ph. IE * Nelson Easton, PharmAnaliD., R.Ph. - 09/22/2022 9:13 AM CST Pharmacist [...] replete potassium (3.7), Nelson Easton Pharm.D., R.Ph. IE * Barbie Ramos, Caridad.G.S.Jesi., M.S.W. - 09/22/2022 8:00 AM CST SUBJECTIVE [...] Resus . Julius Ramos was brought by [facility] ground ambulance. Checked in with the treatment team regarding this patient. ASSESSMENT / PLAN ASSESSMENT Patient appears awake, alert, and oriented. Patient does not have an emergency contact listed. Social work was unable to talk with the patient to discuss reaching out to family/friends as the patientwas taken to the laborer chemical processing. A full psychosocial assessment was not completed due to the nature of the medical evaluation. PLAN Please contact social work should any needs arise. Freda Cox M.S.W. 09/22/2022 IE documented in this encounter H&P Notes * Deanne Langford M.D. - 09/22/2022 11:24 AM CST REFERRAL SOURCE CHIEF COMPLAINT / REASON FOR VISIT Lateral ST elevation MS HISTORY OF PRESENT ILLNESS Mr. Ramos is [...] mmol/L 2.0 No lab exists for component: [id number] Results from last 7 days Lab Units [...] Hyperlipidemia 5. Hypertension Deanne Langford M.D. 09/22/2022 IE * Caron Thompson M.D. - 09/22/2022 8:22 AM CST RST [facility] CVD CICU Admission Note SUBJECTIVE Posterolateral [...] of cares Plan discussed with Cardiac ICU makeup sales consultant and fellow, who were present during diggs portions of the evaluation today. Please page the service pager [phone] with any questions. IE documented in this encounter Procedure Notes * [...] or surrogate Adrián Mayers M.D. 09/22/22 0713 IE documented in this encounter Consult Notes * Lalitha Garza, TREVER - 09/26/2022 9:38 AM CSTAssociated Order(s): IP [...] the cost of cardiac rehabilitation program visits. IE * Jenny Tobias APRN, C.N.P. - 09/22/2022 [...] Thank you for the consult. DCS pager [phone] will follow. Call primary service for diabetes concerns between [phone]. Primary service to contact asset protection representative Endo fellow via hospital power shovel operator for questions. IE documented in this encounter Nursing Notes * Adan Esparza, R.N. - 09/26/2022 2:18 PM CST Patient successfully discharged. Discharge education was provided to the patient and son, [place] questions and concerns were addressed. Final vital signs were stable, and femoral access site was clean, dry, and intact. IV's were removed and telemetry [facility]. Electronically signed by: Adan Esparza R.N. 09/26/22 2:27 PM CADDIE IE * Adan Esparza R.N. - 09/26/2022 2:06 PM CST Shift Goals: Clinical Goals for the Shift: Patient will discharge Identify possible barriers to meeting goals/advancing plan of care: None End of Shift Summary: Goal met. Patient discharged. Please separate discharge not. Electronically signed by: Adan Esparza R.N. 09/26/22 2:07 PM CADDIE IE * Christiane Arias RBereket - 09/25/2022 6:45 PM CST Shift Goals: Clinical Goals for the Shift: Pt will remain free of falls during shift Identify possible barriers to meeting goals/advancing plan of care: none End of Shift Summary: Patient returned from laborer chemical processing with right sheath remained in place at [...] 09/25/20221844 by Christiane Arias, R.N. Outcome: Progressing IE * Obdulia Valencia R.N. - 09/24/2022 6:09 [...] Obdulia Valencia R.N. Outcome: Adequate for Discharge IE * Elda Solorio R.N. - 09/23/2022 1:33 PM CST Report given to floor nurse, VS WNL, patient stable to transfer. IE * Danielle Sutherland R.N. - 09/23/2022 5:49 AM CST Shift Goals: Clinical Goals for the Shift: chest pain free, stable vs Identify possible barriers to meeting goals/advancing plan of care: STEMI End of Shift Summary: Patient denies pain, SOB.vital signs stable IE * Srinivas Kruse M.B., B.Ch., B.A.O. - [...] to the cardiac ICU for further cares. IE documented in this encounter OR Notes * [...] Implant Name Type Inv. Item Serial No. Recruiting Team Lead Lot No. LRB No. Used Action STNT SYNERGY XD DE 3.00X38 - [id number] Cardiac Stent STNT SYNERGY XD DE 3.00X38 [employer] [id number] N/A 1 Implanted Operators: Mike Garcia M.D., Ph.D. Geetha Adler M.D. Indication: Staged RCA PCI, recent anterior STEMI Access Site(s): Right common femoral artery, 6 Maltese sheath(s). Sutured in at the end of the case to be removed later in recovery. Complications: No Recommendations: -Aspirin 81mg daily indefinitely barring any complications -Clopidogrel 75 mg daily for 12 months as part of dual antiplatelet therapy from 09/25/2022 -Transfer back to cardiology floor service Please see makeup sales consultant cath operative report for further information. This is available under Document Viewer as Diagnostic Report - Cath/EP. Code status: FULL, until time of discharge If clinical status changes, please contact the proceduralist to discuss reversal of code status. Geetha Adler M.D. 09/25/22 IE * Brief Op Note - Geetha Adler [...] Implant Name Type Inv. Item Serial No. Recruiting Team Lead Lot No. LRB No. Used Action STNT SYNERGY XD DE 3.50X16 - [id number] Cardiac Stent STNT SYNERGY XD DE 3.50X16 [employer] [id number] N/A 1 Implanted Operators: Mike Garcia M.D., Ph.D. Geetha Adler M.D. Indication: Posterior STEMI Access Site(s): Right common femoral artery, 6 Maltese sheath(s). Sutured in at the end of the case to be removed later in recovery. Complications: No Recommendations: -Aspirin 81mg daily indefinitely barring any complications -Clopidogrel 75 mg daily for 12 months as part of dual antiplatelet therapy from 07/22/2023 -Will plan for staged PCI of mid RCA this Saturday with rotational atherectomy Please see makeup sales consultant cath operative report for further information. This is available under Document Viewer as Diagnostic Report - Cath/EP. Code status: FULL, until time of discharge If clinical status changes, please contact the proceduralist to discuss reversal of code status. Geetha Adler M.D. 09/22/22 IE documented in this encounter ED Notes * Florencia Rene RLilia. - 09/22/2022 7:02 AM CST Pt arrived for new onset of chest pain @ 0300. Pt took x2 ASA when chest pain occurred, pt had no relief. Pt stated he felt nauseous & diaphoretic this AM. Florencia Rene R.N. 09/22/22 0703 Florencia Rene R.N. 09/22/22 0710 IE * Cy Boles APRN, C.N.P., D.N.P. - [...] findings are consistent with posterior lateral STEMI. Pile Driver Operator Helper consulted and STEMI activated. Was given aspirin, Plavix, and nitro drip, and heparin per cardiology's recommendation. Patient was then sent to laborer chemical processing PCI. ED Course as of 09/22/22 0927 [...] Cy Boles APRN, C.N.P., D.N.P. 09/22/22 0934 IE * Adrián Mayers M.D. - 09/22/2022 6:37 [...] Infarction Involving Left Circumflex Coronary Artery ([facility]) 77 y.o. male with a past medical [...] I agree with the note of the UNEMPLOYMENT EXAMINER/PA. Adrián Mayers M.D. 09/22/22 0701 Adrián Mayers M.D. 09/22/22 1536 IE documented in this encounter Miscellaneous Notes * Hospital Course - Walt Campbell P.A.-C., M.S. - 09/22/2022 1:01 PM CADDIE Mr. Julius Ramos is a 77 y.o. male who presented to [facility] Emergency Department on 09/22/2022 with chest pain. [...] discharged home in stable condition on . IE documented in this encounter Plan of Treatment Not on file documented as of this encounter Procedures Procedure Name Priority Date/Time Associated Diagnosis Comments GLUCOSE POCT, B Routine 09/26/2022 11:38 AM CADDIE CBC WITH DIFFERENTIAL, B Routine 09/26/2022 8:22 AM CADDIE BASIC METABOLIC PANEL, S/P Routine 09/26/2022 8:22 AM CADDIE GLUCOSE POCT, B Routine 09/26/2022 7:21 AM CADDIE GLUCOSE POCT, B Routine 09/25/2022 8:58 PM CADDIE GLUCOSE POCT, B Routine 09/25/2022 4:39 PM CADDIE ACT, POCT, B Timed 09/25/2022 2:09 PM CADDIE ACT, POCT, B Routine 09/25/2022 2:06 PM CADDIE GLUCOSE POCT, B Routine 09/25/2022 12:50 PM CADDIE ECG Timed 09/25/2022 12:28 PM CADDIE ADULT OXYGEN THERAPY Routine 09/25/2022 12:05 PM CADDIE ADULT OXYGEN THERAPY Routine 09/25/2022 12:05 PM CADDIE CARDIAC CATHETERIZATION Routine 09/25/2022 11:[address] Elevation Myocardial Infarction Involving Left Circumflex 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 CARDIAC CATHETERIZATION Routine 09/25/2022 11:[address] Elevation Myocardial Infarction Involving Left Circumflex 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 CARDIAC CATHETERIZATION Routine 09/25/2022 11:[address] Elevation Myocardial Infarction Involving Left Circumflex 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 ACT, POCT, B Routine 09/25/2022 11:01 AM CADDIE GLUCOSE POCT, B Routine 09/25/2022 11:00 AM CADDIE ACT, POCT, B Routine 09/25/2022 10:29 AM CADDIE ADULT OXYGEN THERAPY Routine 09/25/2022 9:52 AM CADDIE GLUCOSE POCT, B Routine 09/25/2022 7:31 AM CADDIE CBC WITH DIFFERENTIAL, B Routine 09/25/2022 6:40 AM CADDIE BASIC METABOLIC PANEL, S/P Routine 09/25/2022 6:40 AM CADDIE GLUCOSE POCT, B Routine 09/24/2022 9:21 PM CADDIE GLUCOSE POCT, B Routine 09/24/2022 4:40 PM CADDIE GLUCOSE POCT, B Routine 09/24/2022 11:36 AM CADDIE GLUCOSE POCT, B Routine 09/24/2022 8:10 AM CADDIE CBC WITH DIFFERENTIAL, B Routine 09/24/2022 5:51 AM CADDIE BASIC METABOLIC PANEL, S/P Routine 09/24/2022 5:51 AM CADDIE GLUCOSE POCT, B Routine 09/23/2022 9:31 PM CADDIE GLUCOSE POCT, B Routine 09/23/2022 5:06 PM CADDIE GLUCOSE POCT, B Routine 09/23/2022 11:27 AM CADDIE GLUCOSE POCT, B Routine 09/23/2022 7:35 AM CADDIE GLUCOSE POCT, B Routine 09/23/2022 3:08 AM CADDIE LIPID PANEL, S Routine 09/23/2022 3:06 AM CADDIE CBC WITH DIFFERENTIAL, B Routine 09/23/2022 3:06 AM CADDIE BASIC METABOLIC PANEL, S/P Routine 09/23/2022 3:06 AM CADDIE HEMOGLOBIN A1C, B Routine 09/23/2022 3:0 3 AM CADDIE GLUCOSE POCT, B Routine 09/22/2022 9:15 PM CADDIE GLUCOSE POCT, B Routine 09/22/2022 5:04 PM CADDIE (TTE) 2D ECHO DOPPLER COLOR AND CONTRAST Routine 09/22/2022 4:32 PM CADDIE ECG Routine 09/22/2022 1:41 PM CADDIE GLUCOSE POCT, B Routine 09/22/2022 1:07 PM CADDIE ACT, POCT, B Routine 09/22/2022 11:38 AM CADDIE ACT, POCT, B STAT 09/22/2022 11:37 AM CADDIE GLUCOSE POCT, B Routine 09/22/2022 10:07 AM CADDIE ACT, POCT, B Timed 09/22/2022 9:38 AM CADDIE ACT, POCT, B Routine 09/22/2022 9:35 AM CADDIE ECG STAT 09/22/2022 9:12 AM CADDIE TROPONIN T, 2H/6H, 5TH GEN, P Timed 09/22/2022 9:06 AM CADDIE ADULT OXYGEN THERAPY Routine 09/22/2022 8:59 AM CADDIE ADULT OXYGEN THERAPY Routine 09/22/2022 8:59 AM CADDIE CARDIAC CATHETERIZATION Routine 09/22/2022 8:35 AM CADDIE CARDIAC CATHETERIZATION Routine 09/22/2022 8:35 AM CADDIE CARDIAC CATHETERIZATION Routine 09/22/2022 8:35 AM CADDIE ACT, POCT, B Routine 09/22/2022 7:45 AM CADDIE CRITICAL CARE Routine 09/22/2022 7:12 AM CADDIE DX CHEST PORTABLE 1 VIEW RAD - Semiurgent (Fast; most ED patients; some inpatients) 09/22/2022 6:58 AM CADDIE LACTATE, B STAT 09/22/2022 6:51 AM CADDIE PATIENT STATUS STAT 09/22/2022 6:51 AM CADDIE VENOUS BLOOD GAS W/O COOX STAT 09/22/2022 6:51 AM CADDIE TROPONIN T, BASELINE, 5TH GEN, P STAT 09/22/2022 6:50 AM CADDIE HEPATIC FUNCTION PANEL, S STAT 09/22/2022 6:50 AM CADDIE NT-PRO B-TYPE NATRIURETIC PEPTIDE (BNP), S STAT 09/22/2022 6:50 AM CADDIE SEDIMENTATION RATE, B STAT 09/22/2022 6:50 AM CADDIE PROTHROMBIN TIME (PT), P STAT 09/22/2022 6:50 AM CADDIE D-DIMER, P STAT 09/22/2022 6:50 AM CADDIE CBC WITH DIFFERENTIAL, B STAT 09/22/2022 6:50 AM CADDIE TYPE AND SCREEN STAT 09/22/2022 6:50 AM CADDIE THYROID-STIMULATING HORMONE-SENSITIVE (S-TSH) STAT 09/22/2022 6:50 AM CADDIE LIPASE, S/P STAT 09/22/2022 6:50 AM CADDIE BASIC METABOLIC PANEL, S/P STAT 09/22/2022 6:50 AM CADDIE ECG Routine 09/22/2022 6:44 AM CADDIE ECG STAT 09/22/2022 6:43 AM CADDIE documented in this encounter Results * (ABNORMAL) Glucose, POCT (09/26/2022 11:38 AM CADDIE) Pathologist [facility] Glucose, POCT, B 281(H) 70 - 140 mg/dL 09/26/2022 11:42 AM CADDIE PCLX Site Capillary 09/26/2022 11:42 AM CADDIE PCLX Last Intake 3-4 hours 09/26/2022 11:42 AM CADDIE PCLX Blood 09/26/2022 11:3 8 AM CADDIE 09/26/2022 11:42 AM CADDIE Unknown Provider LAB POCT ORDERABLES- MANUAL POC [facility] [address] [place] [address], [facility] PCLX [facility] POC [address] [place] [address] * (ABNORMAL) CBC with Differential, Blood (09/26/2022 8:22 AM CADDIE) Pathologist [facility] Hemoglobin 13.8 13.2 - 16.6 g/dL 09/26/2022 9:24 AM CADDIE DTL Hematocrit 43.7 38.3 - 48.6 % 09/26/2022 9:24 AM CADDIE DTL Erythrocytes 5.22 4.35 - 5.65 x10(12)/L 09/26/2022 9:24 AM CADDIE DTL MCV 83.7 78.2 - 97.9 fL 09/26/2022 9:24 AM CADDIE DTL RBC Distrib Width 14.5 11.8 - 14.5 % 09/26/2022 9:24 AM CADDIE DTL Platelet Count 375(H) 135 - 317 x10(9)/L 09/26/2022 9:24 AM CADDIE DTL Leukocytes 6.8 3.4 - 9.6 x10(9)/L 09/26/2022 9:24 AM CADDIE DTL Neutrophils 4.79 1.56 - 6.45 x10(9)/L 09/26/2022 9:24 AM CADDIE DTL Lymphocytes 1.31 0.95 - 3.07 x10(9)/L 09/26/2022 9:24 AM CADDIE DTL Monocytes 0.64 0.26 - 0.81 x10(9)/L 09/26/2022 9:24 AM CADDIE DTL Eosinophils 0.07 0.03 - 0.48 x10(9)/L 09/26/2022 9:24 AM CADDIE DTL Basophils 0.03 0.01 - 0.08 x10(9)/L 09/26/2022 9:24 AM CADDIE DTL Blood (Blood, Venous) 09/26/2022 8:22 AM CADDIE 09/26/2022 9:15 AM CADDIE Caron Thompson M.D. LAB BLOOD ADD-ON [facility] [address] [place] [address], [facility] [address] [place] [address] * (ABNORMAL) Basic Metabolic Panel (09/26/2022 8:22 AM CADDIE) Pathologist [facility] Potassium, S 4.3 3.6 - 5.2 mmol/L 09/26/2022 10:30 AM CADDIE DTL Sodium, S 134(L) 135 - 145 mmol/L 09/26/2022 10:30 AM CADDIE DTL Chloride, S 98 98 - 107 mmol/L 09/26/2022 10:30 AM CADDIE DTL Bicarbonate, S 22 22 - 29 mmol/L 09/26/2022 10:30 AM CADDIE DTL Anion Gap 14 7 - 15 09/26/2022 10:30 AM CADDIE DTL BUN (Blood Urea Nitrogen), S 25(H) 8 - 24 mg/dL 09/26/2022 10:30 AM CADDIE DTL Creatinine 0.75 0.74 - 1.35 mg/dL 09/26/2022 10:30 AM CADDIE DTL Estimated GFR (eGFR) >90 >=60 mL/min/BSA 09/26/2022 10:30 AM CADDIE DTL Comment: Estimated GFR calculated using the 2020 CKD_EPI creatinine equation. Calcium, Total, S 8.8 8.8 - 10.2 mg/dL 09/26/2022 10:30 AM CADDIE DTL Glucose, S 367(H) 70 - 140 mg/dL 09/26/2022 10:30 AM CADDIE DTL Blood (Blood, Venous) 09/26/2022 8:22 AM CADDIE 09/26/2022 10:07 AM CADDIE Caron Thompson M.D. LAB BLOOD ADD-ON [facility] [address] [place] [address], [facility] DTL [facility] [address] [place] [address] * (ABNORMAL) Glucose, POCT (09/26/2022 7:21 AM CADDIE) Glucose, POCT, B 267(H) 70 - 140 mg/dL 09/26/2022 7:26 AM CADDIE PCLX Site Capillary 09/26/2022 7:26 AM CADDIE PCLX Blood 09/26/2022 7:21 AM CADDIE 09/26/2022 7:26 AM CADDIE Unknown Provider LAB POCT ORDERABLES- MANUAL Performing Organization Address City/[facility]/ZIP Co de Phone Number POC [facility] [address] [place] [address], [place] PCLX [facility] POC [address] [place] [address] * (ABNORMAL) Glucose, POCT (09/25/2022 8:58 PM CADDIE) Glucose, POCT, B 213(H) 70 - 140 mg/dL 09/25/2022 9:01 PM CADDIE PCLX Site Capillary 09/25/2022 9:01 PM CADDIE PCLX Last Intake 3-4 hours 09/25/2022 9:01 PM CADDIE PCLX Blood 09/25/2022 8:58 PM CADDIE 09/25/2022 9:01 PM CADDIE Unknown Provider LAB POCT ORDERABLES- MANUAL Performing Organization Address City/[facility]/ZIP Co de Phone Number POC [facility] [address] [place] [address], [place] PCLX [facility] POC [address] [place] [address] * (ABNORMAL) Glucose, POCT (09/25/2022 4:39 PM CADDIE) Glucose, POCT, B 147(H) 70 - 140 mg/dL 09/25/2022 4:42 PM CADDIE PCLX Site Capillary 09/25/2022 4:42 PM CADDIE PCLX Last Intake NPO 09/25/2022 4:42 PM CADDIE PCLX Blood 09/25/2022 4:39 PM CADDIE 09/25/2022 4:42 PM CADDIE Unknown Provider LAB POCT ORDERABLES- MANUAL Performing Organization Address City/[facility]/ZIP Co de Phone Number POC [facility] [address] [place] [address], [facility] PCLX [facility] [address] [place] [address] * ACT (Activated Clotting Time), POCT (09/25/2022 2:09 PM CADDIE) Pathologist [facility] Activated Clot Time, [place], POCT Collected DEFAULT 09/25/2022 2:09 PM CADDIE SMLX Blood (Blood, Venous) 09/25/2022 2:09 PM CADDIE 09/25/2022 2:09 PM CADDIE Denny Mena P.A.-C. LAB POCT ORDERABLE S - DEVICE Performing Organization Address [facility] Co de Phone Number [facility] [address] [place] [address], [facility] SMLX [facility] [address] [place] [address] * (ABNORMAL) ACT (Activated Clotting Time), POCT (09/25/2022 2:06 PM CADDIE) Activated Clotting Time, POCT 160(H) 84 - 139 sec 09/25/2022 2:18 PM CADDIE PCSM Blood 09/25/2022 2:06 PM CADDIE 09/25/2022 2:18 PM CADDIE Unknown Provider LAB POCT ORDERABLES - DEVICE Performing Organization Address City/[facility]/ZIP Co de Phone Number POC [facility] [address] [place] [address], [facility] PCSM [facility] POC [address] [place] [address] * (ABNORMAL) Glucose, POCT (09/25/2022 12:50 PM CADDIE) Glucose, POCT, B 212(H) 70 - 140 mg/dL 09/25/2022 1:25 PM CADDIE PCLX Site Capillary 09/25/2022 1:25 PM CADDIE PCLX Last Intake > 4 hours 09/25/2022 1:25 PM CADDIE PCLX Blood 09/25/2022 12:5 0 PM CADDIE 09/25/2022 1:25 PM CADDIE Unknown Provider LAB POCT ORDERABLES- MANUAL Performing Organization Address City/[facility] Co de Phone Number POC [facility] [address] [place] [address], [facility] PCLX [facility] POC [address] [place] [address] * ECG 12 Lead (09/25/2022 12:28 PM CADDIE) Ventricular Rate ECG/Min 61 BPM MUSE VT Interval 156 ms MUSE QRSD Interval 134 ms MUSE QT Interval 470 ms MUSE QTC Interval 473 ms MUSE P [place] 48 degrees MUSE R [place] -50 degrees MUSE T Wave [place] -71 degrees MUSE 09/25/2022 12:2 8 PM CADDIE 09/25/2022 12:35 PM CADDIE Impressions MUSE - 09/25/2022 12:35 PM CADDIE Normal sinus rhythm Left axis deviation Non-specific [...] CORONARY ANGIOPLASTY, STENT PLACEMENT (09/25/2022 11:10 AM CADDIE) Anatomical Region Laterality Modality X-Ray Angiograph y 09/25/2022 10:1 3 AM CADDIE Narrative 09/25/2022 4:13 PM CADDIE For the complete report, see the Order-Level Documents. PROCEDURE TYPES 1. ??CORONARY ATHERECTOMY 2. ??PERCUTANEOUS CORONARY ANGIOPLASTY 3. ??CORONARY STENT PLACEMENT FINAL DIAGNOSIS 1. ??Severe coronary artery atherosclerosis 2. ??Rotational atherectomy 3. ??Successful percutaneous coronary intervention with drug eluting stent PRE-PROCEDURE DIAGNOSIS 1. 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 ??Atherosclerotic Heart Disease Of [place] Coronary Artery Without Angina Pectoris CORONARY DIAGNOSTIC [...] (Activated Clotting Time), POCT (09/25/2022 11:01 AM CADDIE) Activated Clotting Time, POCT 284(H) 84 - 139 sec 09/25/2022 11:07 AM CADDIE PCSM Blood 09/25/2022 11:0 1 AM CADDIE 09/25/2022 11:07 AM CADDIE Unknown Provider LAB POCT ORDERABLES - DEVICE Performing Organization Address [facility] Co de Phone Number POC [facility] [address] [place] [address], [facility] PCSM [facility] POC [address] [place] [address] * (ABNORMAL) Glucose, POCT (09/25/2022 11:00 AM CADDIE) Glucose, POCT, B 213(H) 70 - 140 mg/dL 09/25/2022 11:19 AM CADDIE PCLX Blood 09/25/2022 11:0 0 AM CADDIE 09/25/2022 11:20 AM CADDIE Unknown Provider LAB POCT ORDERABLES- MANUAL Performing Organization Address [facility] Co de Phone Number POC [facility] [address] [place] [address], [facility] PCLX [facility] POC [address] [place] [address] * (ABNORMAL) ACT (Activated Clotting Time), POCT (09/25/2022 10:29 AM CADDIE) Activated Clotting Time, POCT 316(H) 84 - 139 sec 09/25/2022 10:35 AM CADDIE PCSM Blood 09/25/2022 10:2 9 AM CADDIE 09/25/2022 10:36 AM CADDIE Unknown Provider LAB POCT ORDERABLES - DEVICE Performing Organization Address [facility] Co de Phone Number POC [facility] [address] [place] [address], [facility] PCSM [facility] POC [address] [place] [address] * (ABNORMAL) Glucose, POCT (09/25/2022 7:31 AM CADDIE) Glucose, POCT, B 268(H) 70 - 140 mg/dL 09/25/2022 7:37 AM CADDIE PCLX Last Intake NPO 09/25/2022 7:37 AM CADDIE PCLX Blood 09/25/2022 7:31 AM CADDIE 09/25/2022 7:37 AM CADDIE Unknown Provider LAB POCT ORDERABLES- MANUAL POC [facility] [address] [place] [address], [facility] PCLX [facility] POC [address] [place] [address] * (ABNORMAL) CBC with Differential, Blood (09/25/2022 6:40 AM CADDIE) Hemoglobin 14.2 13.2 - 16.6 g/dL 09/25/2022 7:30 AM CADDIE DTL Hematocrit 43.6 38.3 - 48.6 % 09/25/2022 7:30 AM CADDIE DTL Erythrocytes 5.26 4.35 - 5.65 x10(12)/L 09/25/2022 7:30 AM CADDIE DTL MCV 82.9 78.2 - 97.9 fL 09/25/2022 7:30 AM CADDIE DTL RBC Distrib Width 14.3 11.8 - 14.5 % 09/25/2022 7:30 AM CADDIE DTL Platelet Count 395(H) 135 - 317 x10(9)/L 09/25/2022 7:30 AM CADDIE DTL Leukocytes 9.0 3.4 - 9.6 x10(9)/L 09/25/2022 7:30 AM CADDIE DTL Neutrophils 6.34 1.56 - 6.45 x10(9)/L 09/25/2022 7:30 AM CADDIE DTL Lymphocytes 1.45 0.95 - 3.07 x10(9)/L 09/25/2022 7:30 AM CADDIE DTL Monocytes 1.10(H) 0.26 - 0.81 x10(9)/L 09/25/2022 7:30 AM CADDIE DTL Eosinophils 0.06 0.03 - 0.48 x10(9)/L 09/25/2022 7:30 AM CADDIE DTL Basophils 0.04 0.01 - 0.08 x10(9)/L 09/25/2022 7:30 AM CADDIE DTL Blood (Blood, Venous) 09/25/2022 6:40 AM CADDIE 09/25/2022 7:14 AM CADDIE Caron Thompson M.D. LAB BLOOD ADD-ON Performing Organization Address City/[facility]/ZIP Co de Phone Number [facility] [address] [place] [address], [facility] DTL [facility] [address] [place] [address] * (ABNORMAL) Basic Metabolic Panel (09/25/2022 6:40 AM CADDIE) Potassium, S 4.1 3.6 - 5.2 mmol/L 09/25/2022 7:56 AM CADDIE DTL Sodium, S 138 135 - 145 mmol/L 09/25/2022 7:56 AM CADDIE DTL Chloride, S 99 98 - 107 mmol/L 09/25/2022 7:56 AM CADDIE DTL Bicarbonate, S 26 22 - 29 mmol/L 09/25/2022 7:56 AM CADDIE DTL Anion Gap 13 7 - 15 09/25/2022 7:56 AM CADDIE DTL BUN (Blood Urea Nitrogen), S 25(H) 8 - 24 mg/dL 09/25/2022 7:56 AM CADDIE DTL Creatinine 0.80 0.74 - 1.35 mg/dL 09/25/2022 7:56 AM CADDIE DTL Estimated GFR (eGFR) >90 >=60 mL/min/BSA 09/25/2022 7:56 AM CADDIE DTL Comment: Estimated GFR calculated using the 2020 CKD_EPI creatinine equation. Calcium, Total, S 9.2 8.8 - 10.2 mg/dL 09/25/2022 7:56 AM CADDIE DTL Glucose, S 251(H) 70 - 140 mg/dL 09/25/2022 7:56 AM CADDIE DTL Blood (Blood, Venous) 09/25/2022 6:40 AM CADDIE 09/25/2022 7:35 AM CADDIE Caron Thompson M.D. LAB BLOOD ADD-ON [facility] [address] [place] [address], [facility] DTL [facility] [address] [place] [address] * (ABNORMAL) Glucose, POCT (09/24/2022 9:21 PM CADDIE) Glucose, POCT, B 144(H) 70 - 140 mg/dL 09/24/2022 9:26 PM CADDIE PCLX Site Capillary 09/24/2022 9:26 PM CADDIE PCLX Last Intake 3-4 hours 09/24/2022 9:26 PM CADDIE PCLX Blood 09/24/2022 9:21 PM CADDIE 09/24/2022 9:26 PM CADDIE Unknown Provider LAB POCT ORDERABLES- MANUAL Performing Organization Address [facility]/ZIP Co de Phone Number POC [facility] [address] [place] [address], [place] PCLX [facility] POC [address] [place] [address] * (ABNORMAL) Glucose, POCT (09/24/2022 4:40 PM CADDIE) Glucose, POCT, B 203(H) 70 - 140 mg/dL 09/24/2022 5:28 PM CADDIE PCLX Last Intake 3-4 hours 09/24/2022 5:28 PM CADDIE PCLX Blood 09/24/2022 4:40 PM CADDIE 09/24/2022 5:28 PM CADDIE Unknown Provider LAB POCT ORDERABLES- MANUAL Performing Organization Address City/[facility]/ZIP Co de Phone Number POC [facility] [address] [place] [address], [place] PCLX [facility] POC [address] [place] [address] * (ABNORMAL) Glucose, POCT (09/24/2022 11:36 AM CADDIE) Glucose, POCT, B 286(H) 70 - 140 mg/dL 09/24/2022 11:41 AM CADDIE PCLX Last Intake 1-2 hours 09/24/2022 11:41 AM CADDIE PCLX Blood 09/24/2022 11:3 6 AM CADDIE 09/24/2022 11:41 AM CADDIE Unknown Provider LAB POCT ORDERABLES- MANUAL Performing Organization Address City/[facility]/ZIP Co de Phone Number POC [facility] [address] [place] [address], [facility] PCLX [facility] POC [address] [place] [address] * (ABNORMAL) Glucose, POCT (09/24/2022 8:10 AM CADDIE) Glucose, POCT, B 177(H) 70 - 140 mg/dL 09/24/2022 8:16 AM CADDIE PCLX Last Intake > 4 hours 09/24/2022 8:16 AM CADDIE PCLX Blood 09/24/2022 8:10 AM CADDIE 09/24/2022 8:16 AM CADDIE Unknown Provider LAB POCT ORDERABLES- MANUAL Performing Organization Address City/[facility]/ZIP Co de Phone Number POC [facility] [address] [place] [address], [facility] PCLX [facility] POC [address] [place] [address] * (ABNORMAL) CBC with Differential, Blood (09/24/2022 5:51 AM CADDIE) Pathologist [facility] Hemoglobin 13.7 13.2 - 16.6 g/dL 09/24/2022 6:37 AM CADDIE DTL Hematocrit 43.0 38.3 - 48.6 % 09/24/2022 6:37 AM CADDIE DTL Erythrocytes 5.20 4.35 - 5.65 x10(12)/L 09/24/2022 6:37 AM CADDIE DTL MCV 82.7 78.2 - 97.9 fL 09/24/2022 6:37 AM CADDIE DTL RBC Distrib Width 14.4 11.8 - 14.5 % 09/24/2022 6:37 AM CADDIE DTL Platelet Count 350(H) 135 - 317 x10(9)/L 09/24/2022 6:37 AM CADDIE DTL Leukocytes 8.9 3.4 - 9.6 x10(9)/L 09/24/2022 6:37 AM CADDIE DTL Neutrophils 6.11 1.56 - 6.45 x10(9)/L 09/24/2022 6:37 AM CADDIE DTL Lymphocytes 1.66 0.95 - 3.07 x10(9)/L 09/24/2022 6:37 AM CADDIE DTL Monocytes 1.06(H) 0.26 - 0.81 x10(9)/L 09/24/2022 6:37 AM CADDIE DTL Eosinophils 0.06 0.03 - 0.48 x10(9)/L 09/24/2022 6:37 AM CADDIE DTL Basophils 0.04 0.01 - 0.08 x10(9)/L 09/24/2022 6:37 AM CADDIE DTL Blood (Blood, Venous) 09/24/2022 5:51 AM CADDIE 09/24/2022 6:26 AM CADDIE Caron Thompson M.D. LAB BLOOD ADD-ON [facility] [address] [address], [facility] [place] [address] * Basic Metabolic Panel (09/24/2022 5:51 AM CADDIE) Pathologist [facility] Potassium, S 3.9 3.6 - 5.2 mmol/L 09/24/2022 7:08 AM CADDIE DTL Sodium, S 140 135 - 145 mmol/L 09/24/2022 7:08 AM CADDIE DTL Chloride, S 101 98 - 107 mmol/L 09/24/2022 7:08 AM CADDIE DTL Bicarbonate, S 26 22 - 29 mmol/L 09/24/2022 7:08 AM CADDIE DTL Anion Gap 13 7 - 15 09/24/2022 7:08 AM CADDIE DTL BUN (Blood Urea Nitrogen), S 18 8 - 24 mg/dL 09/24/2022 7:08 AM CADDIE DTL Creatinine 0.79 0.74 - 1.35 mg/dL 09/24/2022 7:08 AM CADDIE DTL Estimated GFR (eGFR) >90 >=60 mL/min/BSA 09/24/2022 7:08 AM CADDIE DTL Comment: Estimated GFR calculated using the 2020 CKD_EPI creatinine equation. Calcium, Total, S 8.8 8.8 - 10.2 mg/dL 09/24/2022 7:08 AM CADDIE DTL Glucose, S 139 70 - 140 mg/dL 09/24/2022 7:08 AM CADDIE DTL Blood (Blood, Venous) 09/24/2022 5:51 AM CADDIE 09/24/2022 6:48 AM CADDIE Caron Thompson M.D. LAB BLOOD ADD-ON [facility] [address] [place] [address], [facility] DTL [facility] [address] [place] [address] * Glucose, POCT (09/23/2022 9:31 PM CADDIE) Glucose, POCT, B 111 70 - 140 mg/dL 09/23/2022 9:34 PM CADDIE PCLX Site Capillary 09/23/2022 9:34 PM CADDIE PCLX Last Intake 3-4 hours 09/23/2022 9:34 PM CADDIE PCLX Blood 09/23/2022 9:31 PM CADDIE 09/23/2022 9:34 PM CADDIE Unknown Provider LAB POCT ORDERABLES- MANUAL POC [facility] [address] [place] [address], [facility] PCLX [facility] POC [address] [place] [address] * Glucose, POCT (09/23/2022 5:06 PM CADDIE) Glucose, POCT, B 103 70 - 140 mg/dL 09/23/2022 5:08 PM CADDIE PCLX Blood 09/23/2022 5:06 PM CADDIE 09/23/2022 5:08 PM CADDIE Unknown Provider LAB POCT ORDERABLES- MANUAL Performing Organization Address City/[facility] Co de Phone Number POC [facility] [address] [place] [address], [facility] PCLX [facility] POC [address] [place] [address] * (ABNORMAL) Glucose, POCT (09/23/2022 11:27 AM CADDIE) Glucose, POCT, B 325(H) 70 - 140 mg/dL 09/23/2022 11:32 AM CADDIE PCLX Site Capillary 09/23/2022 11:32 AM CADDIE PCLX Last Intake 3-4 hours 09/23/2022 11:32 AM CADDIE PCLX Blood 09/23/2022 11:2 7 AM CADDIE 09/23/2022 11:32 AM CADDIE Unknown Provider LAB POCT ORDERABLES- MANUAL Performing Organization Address [facility] Co de Phone Number [facility] [address] [place] [address], [place] PCLX [facility] POC [address] [place] [address] * (ABNORMAL) Glucose, POCT (09/23/2022 7:35 AM CADDIE) Glucose, POCT, B 214(H) 70 - 140 mg/dL 09/23/2022 7:38 AM CADDIE PCLX Site Capillary 09/23/2022 7:38 AM CADDIE PCLX Last Intake > 4 hours 09/23/2022 7:38 AM CADDIE PCLX Blood 09/23/2022 7:35 AM CADDIE 09/23/2022 7:38 AM CADDIE Unknown Provider LAB POCT ORDERABLES- MANUAL Performing Organization Address City/[facility] Co de Phone Number [facility] [address] [place] [address], [place] PCLX [facility] POC [address] [place] [address] * (ABNORMAL) Glucose, POCT (09/23/2022 3:08 AM CADDIE) Glucose, POCT, B 223(H) 70 - 140 mg/dL 09/23/2022 3:11 AM CADDIE PCLX Site Capillary 09/23/2022 3:11 AM CADDIE PCLX Blood 09/23/2022 3:08 AM CADDIE 09/23/2022 3:11 AM CADDIE Unknown Provider LAB POCT ORDERABLES- MANUAL POC [facility] [address] [place] [address], [facility] PCLX [facility] POC [address] [place] [address] * (ABNORMAL) CBC with Differential, Blood (09/23/2022 3:06 AM CADDIE) Hemoglobin 13.4 13.2 - 16.6 g/dL 09/23/2022 5:14 AM CADDIE DTL Hematocrit 42.0 38.3 - 48.6 % 09/23/2022 5:14 AM CADDIE DTL Erythrocytes 5.08 4.35 - 5.65 x10(12)/L 09/23/2022 5:14 AM CADDIE DTL MCV 82.7 78.2 - 97.9 fL 09/23/2022 5:14 AM CADDIE DTL RBC Distrib Width 14.4 11.8 - 14.5 % 09/23/2022 5:14 AM CADDIE DTL Platelet Count 362(H) 135 - 317 x10(9)/L 09/23/2022 5:14 AM CADDIE DTL Leukocytes 8.8 3.4 - 9.6 x10(9)/L 09/23/2022 5:14 AM CADDIE DTL Neutrophils 6.00 1.56 - 6.45 x10(9)/L 09/23/2022 5:14 AM CADDIE DTL Lymphocytes 1.77 0.95 - 3.07 x10(9)/L 09/23/2022 5:14 AM CADDIE DTL Monocytes 0.93(H) 0.26 - 0.81 x10(9)/L 09/23/2022 5:14 AM CADDIE DTL Eosinophils 0.07 0.03 - 0.48 x10(9)/L 09/23/2022 5:14 AM CADDIE DTL Basophils 0.03 0.01 - 0.08 x10(9)/L 09/23/2022 5:14 AM CADDIE DTL Blood (Blood, Venous) 09/23/2022 3:06 AM CADDIE 09/23/2022 5:03 AM CADDIE Caron Thompson M.D. LAB BLOOD ADD-ON [facility] [address] [place] [address], [facility] DTL [facility] [address] [place] [address] * (ABNORMAL) Basic Metabolic Panel (09/23/2022 3:06 AM CADDIE) Pathologist [facility] Potassium, S 4.1 3.6 - 5.2 mmol/L 09/23/2022 5:45 AM CADDIE DTL Sodium, S 138 135 - 145 mmol/L 09/23/2022 5:45 AM CADDIE DTL Chloride, S 101 98 - 107 mmol/L 09/23/2022 5:45 AM CADDIE DTL Bicarbonate, S 25 22 - 29 mmol/L 09/23/2022 5:45 AM CADDIE DTL Anion Gap 12 7 - 15 09/23/2022 5:45 AM CADDIE DTL BUN (Blood Urea Nitrogen), S 18 8 - 24 mg/dL 09/23/2022 5:45 AM CADDIE DTL Creatinine 0.69(L) 0.74 - 1.35 mg/dL 09/23/2022 5:45 AM CADDIE DTL Estimated GFR (eGFR) >90 >=60 mL/min/BSA 09/23/2022 5:45 AM CADDIE DTL Comment: Estimated GFR calculated using the 2020 CKD_EPI creatinine equation. Calcium, Total, S 8.7(L) 8.8 - 10.2 mg/dL 09/23/2022 5:45 AM CADDIE DTL Glucose, S 220(H) 70 - 140 mg/dL 09/23/2022 5:45 AM CADDIE DTL Blood (Blood, Venous) 09/23/2022 3:06 AM CADDIE 09/23/2022 5:24 AM CADDIE Caron Thompson M.D. LAB BLOOD ADD-ON [facility] [address] [place] [address], [facility] [address] [place] [address] * (ABNORMAL) Lipid Panel (09/23/2022 3:06 AM CADDIE) Triglycerides 85 mg/dL 09/23/2022 5:45 AM CADDIE DTL Comment: ----REFERENCE VALUE---- Normal: <150 mg/dL Borderline High: 150-199 mg/dL High: 200-499 mg/dL Very High: > or =500 mg/dL Cholesterol, Total 105 mg/dL 2022 5:45 AM CADDIE DTL Comment: ----REFERENCE VALUE---- Desirable: < 200 mg/dL Borderline High: 200 - 239 mg/dL High: > or = 240 mg/dL Cholesterol, LDL, Calculated 54 mg/dL 09/23/2022 5:45 AM CADDIE DTL Comment: ----REFERENCE VALUE---- Desirable: <100 mg/dL Above Desirable: 100-129 mg/dL Borderline High: 130-159 mg/dL High: 160-189 mg/dL Very High: >=190 mg/dL ----ADDITIONAL INFORMATION---- LDL cholesterol calculated using the [place]/NIH equation. Cholesterol, HDL, S 34(L) >=40 mg/dL 09/23/2022 5:45 AM CADDIE DTL Cholesterol, Non-HDL, Calculated 71 mg/dL 09/23/2022 5:45 AM CADDIE DTL Comment: ----REFERENCE VALUE---- Desirable: <130 mg/dL Above Desirable: 130-159 mg/dL Borderline High: 160-189 mg/dL High: 190-219 mg/dL Very High: > or =220 mg/dL Fasting (8 HR or more) Unknown 09/23/2022 5:24 AM CADDIE DTL Blood (Blood, Venous) 09/23/2022 3:06 AM CADDIE 09/23/2022 5:24 AM CADDIE Caron Thompson M.D. LAB BLOOD ADD-ON Performing Organization Address City/[facility]/ZIP Co de Phone Number [facility] [address] [place] [address], [facility] [address] [place] [address] * (ABNORMAL) Hemoglobin A1c (09/23/2022 3:03 AM CADDIE) Hemoglobin A1c, B 10.1(H) 4.0 - 5.6 % 09/23/2022 7:28 AM CADDIE DT Comment: Hemoglobin A1c values greater than or equal to 6.5 percent are diagnostic for diabetes mellitus. ??Diagnosis should be confirmed by repeat testing. ??In diabetic patients, HbA1c goals should be discussed with healthcare provider. Blood (Blood, Venous) 09/23/2022 3:03 AM CADDIE 09/23/2022 7:20 AM CADDIE Jerardo Dela Cruz M.D. LAB BLOOD ADD-ON Performing Organization Address [facility] Co de Phone Number [facility] [address] [place] [address], [facility] [address] [place] [address] * (ABNORMAL) Glucose, POCT (09/22/2022 9:15 PM CADDIE) Glucose, POCT, B 259(H) 70 - 140 mg/dL 09/22/2022 9:19 PM CADDIE PCLX Site Capillary 09/22/2022 9:19 PM CADDIE PCLX Blood 09/22/2022 9:15 PM CADDIE 09/22/2022 9:19 PM CADDIE Unknown Provider LAB POCT ORDERABLES- MANUAL Performing Organization Address City/[facility]/ZIP Co de Phone Number POC [facility] [address] [place] [address], [facility] PCLX [facility] POC [address] [place] [address] * (ABNORMAL) Glucose, POCT (09/22/2022 5:04 PM CADDIE) Glucose, POCT, B 205(H) 70 - 140 mg/dL 09/22/2022 5:09 PM CADDIE PCLX Site Capillary 09/22/2022 5:09 PM CADDIE PCLX Last Intake > 4 hours 09/22/2022 5:09 PM CADDIE PCLX Blood 09/22/2022 5:04 PM CADDIE 09/22/2022 5:09 PM CADDIE Unknown Provider LAB POCT ORDERABLES- MANUAL POC [facility] [address] [place] [address], [place] PCLX [facility] POC [address] [place] [address] * (TTE) 2D ECHO DOPPLER COLOR AND CONTRAST (09/22/2022 4:32 PM CADDIE) Pathologist [facility] Ejection Fraction 40 MC CV EIMS Wall [...] Region Laterality Modality Echocardiography 09/22/2022 3:02 PM CADDIE Impressions 09/22/2022 5:07 PM CADDIE Echo performed at the patient's bedside. There [...] per Echocardiography Contrast Administration Protocol Reference Document [id number]. Patient met an inclusion criterion and did not have contraindications in screening sections. For the complete report, see the Order-Level Documents. Narrative 09/22/2022 5:07 PM CADDIE For the complete report, see the Order-Level [...] /physical examination correlation recommended. ??[facility] Procedure Note April, Bradford B, M.D. - 09/22/2022 For the complete report, [...] administered per EchocardiographyContrast Administration Protocol Reference Document [id number]. Patientmet an inclusion criterion and did not have contraindications in screeningsections. For the complete report, see the Order-Level Documents. Caron Thompson M.D. CV ECHO PROCEDURES * ECG 12 Lead (09/22/2022 1:41 PM CADDIE) Ventricular Rate ECG/Min 61 BPM MUSE VT Interval 166 ms MUSE QRSD Interval 130 ms MUSE QT Interval 456 ms MUSE QTC Interval 459 ms MUSE P [place] 29 degrees MUSE R [place] -42 degrees MUSE T Wave [place] -73 degrees MUSE 09/22/2022 1:41 PM CADDIE 09/22/2022 1:44 PM CADDIE Impressions MUSE - 09/22/2022 1:44 PM CADDIE Normal sinus rhythm Left axis deviation Non-specific [...] * (ABNORMAL) Glucose, POCT (09/22/2022 1:07 PM CADDIE) Glucose, POCT, B 261(H) 70 - 140 mg/dL 09/22/2022 1:21 PM CADDIE PCLX Blood 09/22/2022 1:07 PM CADDIE 09/22/2022 1:21 PM CADDIE Unknown Provider LAB POCT ORDERABLES- MANUAL Performing Organization Address [facility]/ZIP Co de Phone Number POC [facility] [address] [place] [address], [place] PCLX [facility] [address] [place] [address] * (ABNORMAL) ACT (Activated Clotting Time), POCT (09/22/2022 11:38 AM CADDIE) Activated Clotting Time, POCT 178(H) 84 - 139 sec 09/22/2022 11:47 AM CADDIE PCSM Blood 09/22/2022 11:3 8 AM CADDIE 09/22/2022 11:47 AM CADDIE Unknown Provider LAB POCT ORDERABLES - DEVICE Performing Organization Address [facility] Co de Phone Number POC [facility] [address] [place] [address], [facility] PCSM [facility] POC [address] [place] [address] * ACT (Activated Clotting Time), POCT (09/22/2022 11:37 AM CADDIE) Activated Clot Time, [place], POCT Collected DEFAULT 09/22/2022 11:37 AM CADDIE SMLX Blood (Blood, Venous) 09/22/2022 11:37 AM CADDIE 09/22/2022 11:37 AM CADDIE Caron Thompson M.D. LAB POCT ORDERABLE S - DEVICE Performing Organization Address [facility] Co de Phone Number [facility] [address] [place] [address], [facility] SMLX [facility] [address] [place] [address] * (ABNORMAL) Glucose, POCT (09/22/2022 10:07 AM CADDIE) Glucose, POCT, B 267(H) 70 - 140 mg/dL 09/22/2022 11:02 AM CADDIE PCLX Site Capillary 09/22/2022 11:02 AM CADDIE PCLX Last Intake NPO 09/22/2022 11:02 AM CADDIE PCLX Blood 09/22/2022 10:0 7 AM CADDIE 09/22/2022 11:02 AM CADDIE Unknown Provider LAB POCT ORDERABLES- MANUAL POC [facility] [address] [place] [address], [facility] PCLX [facility] [address] [place] [address] * ACT (Activated Clotting Time), POCT (09/22/2022 9:38 AM CADDIE) Pathologist [facility] Activated Clot Time, [place], POCT Collected DEFAULT 09/22/2022 9:38 AM CADDIE SMLX Blood (Blood, Venous) 09/22/2022 9:38 AM CADDIE 09/22/2022 9:38 AM CADDIE Caron Thompson M.D. LAB POCT ORDERABLE S - DEVICE Performing Organization Address [facility] Co de Phone Number [facility] [address] [place] [address], [facility] SMLX [facility] [address] [place] [address] * (ABNORMAL) ACT (Activated Clotting Time), POCT (09/22/2022 9:35 AM CADDIE) Pathologist [facility] Activated Clotting Time, POCT 227(H) 84 - 139 sec 09/22/2022 9:45 AM CADDIE PCSM Blood 09/22/2022 9:35 AM CADDIE 09/22/2022 9:45 AM CADDIE Unknown Provider LAB POCT ORDERABLES - DEVICE Performing Organization Address City/[facility]/ZIP Co de Phone Number POC RST [facility] [address] [place] [address], [place] [facility] POC [address] [place] [address] * ECG 12 Lead (09/22/2022 9:12 AM CADDIE) Ventricular Rate ECG/Min 71 BPM MUSE VT Interval 166 ms MUSE QRSD Interval 126 ms MUSE QT Interval 452 ms MUSE QTC Interval 491 ms MUSE P [place] 67 degrees MUSE R [place] -18 degrees MUSE T Wave [place] -23 degrees MUSE 09/22/2022 9:12 AM CADDIE 09/22/2022 9:32 AM CADDIE Impressions MUSE - 09/22/2022 9:32 AM CADDIE Sinus rhythm Premature ventricular complexes Non-specific intra-ventricular [...] T, 2H/6H, 5th Gen (09/22/2022 9:06 AM CADDIE) Troponin T, 2 hr, 5th gen 1704(H) <=15 ng/L 09/22/2022 9:33 AM CADDIE STMA Comment:Consider acute myoca rdial injury 2H Delta 1637(A) ng/L 09/22/2022 9:33 AM CADDIE STMA 2H Delta Interp Changing(A ) 09/22/2022 9:33 AM CADDIE ST[facility] Comment:Evaluate for acute m yocardial injury Troponin T, 6 hr, 5th gen 4533(H) <=15 ng/L 09/22/2022 1:34 PM CADDIE ST[facility] Comment:Consider acute myoca rdial injury 6H Delta 4466(A) ng/L 09/22/2022 1:34 PM CADDIE STMA 6H Delta Interp Changing(A ) 09/22/2022 1:34 PM CADDIE STMA Comment:Evaluate for acute m yocardial injury Blood (Blood, Venous) 09/22/2022 9:06 AM CADDIE 09/22/2022 9:12 AM CADDIE Narrative [facility] - 09/22/2022 1:34 PM CADDIE Specimen Information: Specimen ID: [id number] Specimen Type: Blood Specimen Collection Start Date: 09/22/2022 ??9:06 AM Specimen Received Date: 09/22/2022 ??9:12 AM Specimen ID: [id number] Specimen Type: Blood Specimen Collection Start Date: 09/22/2022 ??1:07 PM Specimen Received Date: 09/22/2022 ??1:13 PM Adrián Mayers M.D. LAB BLOOD TROPONIN [facility] [address] [place] [address], [facility] [address] [place] [address] * CORONARY ANGIOGRAPHY, PERCUTANEOUS CORONARY ANGIOPLASTY, STENT PLACEMENT (09/22/2022 8:35 AM CADDIE) Anatomical Region Laterality Modality X-Ray Angiograph y 09/22/2022 7:26 AM CADDIE Narrative 09/24/2022 8:36 AM CADDIE For the complete report, see the Order-Level [...] (Activated Clotting Time), POCT (09/22/2022 7:45 AM CADDIE) [facility] Activated Clotting Time, POCT 329(H) 84 - 139 sec 09/22/2022 7:51 AM CADDIE PCSM Blood 09/22/2022 7:45 AM CADDIE 09/22/2022 7:51 AM CADDIE Unknown Provider LAB POCT ORDERABLES - DEVICE POC RST [facility] IN[facility] [address] [place] [address], [facility] PCSM [facility] POC [address] [place] [address] * Critical Care (09/22/2022 7:12 AM CADDIE) Narrative Adrián Mayers M.D. - 09/22/2022 7:12 AM CADDIE Adrián Mayers M.D. ? 09/22/2022 ??7:13 AM [...] Chest Portable 1 View (09/22/2022 6:58 AM CADDIE) Anatomical Region Laterality Modality Chest, Thoracic RST LOS, Tho racic ARZ LOS, Thoracic FLA LOS N/A Digital Radiography 09/22/2022 7:17 AM CADDIE Impressions 09/22/2022 8:20 AM CADDIE No comparison. Negative chest. Narrative 09/22/2022 8:20 AM CADDIE EXAM: ??DX CHEST PORTABLE 1 VIEW Procedure Note Raymundo Tobar M.D. - 09/22/2022 EXAM: DX CHEST PORTABLE 1 VIEW IMPRESSION: No comparison. Negative chest. Adrián Mayers M.D. IMG DIAGNOSTIC KAE GING PROCEDURES * Patient Status (09/22/2022 6:51 AM CADDIE) Pathologist [facility] FIO2 0.21 0.21=AIR 09/22/2022 6:57 AM CADDIE ST[facility] Spont. breaths/min 21 09/22/2022 6:57 AM CADDIE ST[facility] Blood 09/22/2022 6:51 AM CADDIE 09/22/2022 6:57 AM CADDIE Adrián Mayers M.D. LAB BLOOD NON ADD- ON [facility] [address] [place] [address], [facility] [address] [place] [address] * Lactate, B (09/22/2022 6:51 AM CADDIE) Lactate, B 2.0 0.5 - 2.2 mmol/L 09/22/2022 7:03 AM CADDIE STMA Blood (Blood, Venous) 09/22/2022 6:51 AM CADDIE 09/22/2022 6:57 AM CADDIE Adrián Mayers M.D. LAB BLOOD NON ADD- ON Performing Organization Address City/[facility] Co de Phone Number [facility] [address] [place] [address], [facility] [address] [place] [address] * Blood Gas without Coox, Venous (09/22/2022 6:51 AM CADDIE) Pathologist [facility] pO2, Venous 25 Not applicable mm Hg 09/22/2022 7:03 AM CADDIE STMA pCO2, Venous 48 41 - 51 mm Hg 7:03 AM CADDIE ST[facility] pH, Venous 7.37 7.32 - 7.43 pH 09/22/2022 7:03 AM CADDIE ST[facility] Base Excess, Venous 2 Not applicable mmol/L 09/22/2022 7:03 AM CADDIE ST[facility] HCO3, Venous 27 Not applicable mmol/L 09/22/2022 7:03 AM CADDIE ST[facility] Sample Site, Venous Venipunct 09/22/2022 7:03 AM CADDIE ST[facility] Blood (Blood, Venous) 09/22/2022 6:51 AM CADDIE 09/22/2022 6:57 AM CADDIE Adrián Mayers M.D. LAB BLOOD NON ADD- ON Performing Organization Address City/[facility]/ZIP Co de Phone Number [facility] [address] [place], [place] [address] [address] [place] [address] * Type and Screen (with reflex Antibody ID) (09/22/2022 6:50 AM CADDIE) ABORh O Pos Not applicable 09/22/2022 10:18 AM CADDIE STRM Antibody Screen Negative Negative 09/22/2022 10:32 AM CADDIE STRM Type & Screen Expiration 09/25/2022 23:59 09/22/2022 10:18 AM CADDIE STRM Testing Location [place] DEFAULT 09/22/2022 8:54 AM CADDIE STRM Blood (Blood, Venous) 09/22/2022 6:50 AM CADDIE 09/22/2022 8:54 AM CADDIE Adrián Mayers M.D. LAB BLOOD BANK GABRIELA T ORDERABLES [facility] [address] [place] [address], [facility] STRM [facility] [address] [place] [address] * S-TSH (Thyroid-Stimulating Hormone - Sensitive) (09/22/2022 6:50 AM CADDIE) Pathologist [facility] TSH, Sensitive 2.7 0.3 - 4.2 mIU/L 09/22/2022 8:01 AM CADDIE DTL Blood (Blood, Venous) 09/22/2022 6:50 AM CADDIE 09/22/2022 7:33 AM CADDIE Adrián Mayers M.D. LAB BLOOD ADD-ON Performing Organization Address City/[facility]/ZIP Co de Phone Number [facility] [address] [place] [address], [facility] DTL [facility] [address] [place] [address] * (ABNORMAL) Troponin T, Baseline, 5th gen (09/22/2022 6:50 AM CADDIE) Pathologist [facility] Troponin T, Baseline, 5th gen 67(H) <=15 ng/L 09/22/2022 7:16 AM CADDIE STMA Blood (Blood, Venous) 09/22/2022 6:50 AM CADDIE 09/22/2022 6:57 AM CADDIE Adrián Mayers M.D. LAB BLOOD TROPONIN [facility] [address] [place] [address], [facility] STMA [facility] [address] [place] [address] * Sedimentation Rate (09/22/2022 6:50 AM CADDIE) Sedimentation Rate, B 8 3 - 28 mm/h 09/22/2022 8:08 AM CADDIE DTL Blood (Blood, Venous) 09/22/2022 6:50 AM CADDIE 09/22/2022 7:13 AM CADDIE Adrián Mayers M.D. LAB BLOOD ADD-ON Performing Organization Address [facility] Co de Phone Number [facility] [address] [place], [place] [address] [address] [place] [address] * (ABNORMAL) Prothrombin Time (PT) (09/22/2022 6:50 AM CADDIE) Pathologist [facility] Prothrombin Time, P 13.0(H) 9.4 - 12.5 sec 09/22/2022 7:06 AM CADDIE STMA INR 1.2 0.9 - 1.1 09/22/2022 7:06 AM CADDIE ST[facility] Comment: ----ADDITIONAL INFORMATION---- Standard intensity warfarin therapeutic range: 2.0 to 3.0 ?? High intensity warfarin therapeutic range: 2.5 to 3.5 Blood (Blood, Venous) 09/22/2022 6:50 AM CADDIE 09/22/2022 6:57 AM CADDIE Adrián Mayers M.D. LAB BLOOD ADD-ON Performing Organization Address City/[facility] Co de Phone Number [facility] [address] [place] [address], [facility] STMA [facility] [address] [place] [address] * NT-Pro B-Type Natriuretic Peptide (BNP) (09/22/2022 6:50 AM CADDIE) Pathologist [facility] NT-Pro BNP 62 <=540 pg/mL 09/22/2022 7:22 AM CADDIE ST[facility] Comment: NT-proBNP values less than 300 [...] failure. Blood (Blood, Venous) 09/22/2022 6:50 AM CADDIE 09/22/2022 6:57 AM CADDIE Adrián Mayers M.D. LAB BLOOD ADD-ON Performing Organization Address [facility] Co de Phone Number [facility] [address] [place], [place] [address] [place] [address] [place] [address] * Lipase (09/22/2022 6:50 AM CADDIE) Lipase, S 16 13 - 60 U/L 09/22/2022 8: 01 AM CADDIE DTL Blood (Blood, Venous) 09/22/2022 6:50 AM CADDIE 09/22/2022 7:33 AM CADDIE Adrián Mayesr M.D. LAB BLOOD ADD-ON Performing Organization Address [facility] Co de Phone Number [facility] [address] [place] [address], [facility] [place] [address] * (ABNORMAL) Hepatic Function Panel (09/22/2022 6:50 AM CADDIE) Bilirubin, Total, S 0.7 <=1.2 mg/dL 09/22/2022 8:01 AM CADDIE DTL Bilirubin, Direct, S 0.3 0.0 - 0.3 mg/dL 09/22/2022 8:01 AM CADDIE DTL Aspartate Aminotransferase (AST), S 35 8 - 48 U/L 09/22/2022 8:01 AM CADDIE DTL Alanine Aminotransferase (ALT), S 23 7 - 55 U/L 09/22/2022 8:01 AM CADDIE DTL Alkaline Phosphatase, S 138(H) 40 - 129 U/L 09/22/2022 8:01 AM CADDIE DTL Albumin, S 4.2 3.5 - 5.0 g/dL 09/22/2022 8:01 AM CADDIE DTL Protein, Total, S 7.6 6.3 - 7.9 g/dL 09/22/2022 8:01 AM CADDIE DTL Blood (Blood, Venous) 09/22/2022 6:50 AM CADDIE 09/22/2022 7:33 AM CADDIE Adrián Mayers M.D. LAB BLOOD ADD-ON Performing Organization Address [facility] Co de Phone Number [facility] [address] [place] [address], [facility] [address] [address] * D-Dimer (09/22/2022 6:50 AM CADDIE) Pathologist [facility] D-Dimer, P 427 <=500 ng/mL FEU 09/22/2022 7:08 AM CADDIE [facility] Comment: ----ADDITIONAL INFORMATION---- D-dimer values less than or equal to 500 ng/mL fibrinogen equivalent units (FEU) may be used in conjunction with clinical pre-test probability to exclude deep vein thrombosis (DVT) and/or pulmonary embolism (PE). Blood (Blood, Venous) 09/22/2022 6:50 AM CADDIE 09/22/2022 6:57 AM CADDIE Adrián Mayers M.D. LAB BLOOD ADD-ON Performing Organization Address City/[facility]/ZIP Co de Phone Number [facility] [address] [place] [address], [address] [address] * (ABNORMAL) CBC with Differential, Blood (09/22/2022 6:50 AM CADDIE) Hemoglobin 14.8 13.2 - 16.6 g/dL 09/22/2022 7:00 AM CADDIE [facility] Hematocrit 46.2 38.3 - 48.6 % 09/22/2022 7:00 AM CADDIE ST[facility] Erythrocytes 5.49 4.35 - 5.65 x10(12)/L 09/22/2022 7:00 AM CADDIE ST[facility] MCV 84.2 78.2 - 97.9 fL 09/22/2022 7:00 AM CADDIE ST[facility] RBC Distrib Width 13.9 11.8 - 14.5 % 09/22/2022 7:00 AM CADDIE ST[facility] Platelet Count 353(H) 135 - 317 x10(9)/L 09/22/2022 7:00 AM CADDIE STMA Leukocytes 9.6 3.4 - 9.6 x10(9)/L 09/22/2022 7:00 AM CADDIE ST[facility] Neutrophils 7.65(H) 1.56 - 6.45 x10(9)/L 09/22/2022 7:00 AM CADDIE STMA Lymphocytes 1.17 0.95 - 3.07 x10(9)/L 09/22/2022 7:00 AM CADDIE ST[facility] Monocytes 0.64 0.26 - 0.81 x10(9)/L 09/22/2022 7:00 AM CADDIE STMA Eosinophils 0.05 0.03 - 0.48 x10(9)/L 09/22/2022 7:00 AM CADDIE STMA Basophils 0.04 0.01 - 0.08 x10(9)/L 09/22/2022 7:00 AM CADDIE ST[facility] Blood (Blood, Venous) 09/22/2022 6:50 AM CADDIE 09/22/2022 6:57 AM CADDIE Adrián Mayers M.D. LAB BLOOD ADD-ON [facility] [address] [place] [address], [facility] [address] [place] [address] * (ABNORMAL) Basic Metabolic Panel (09/22/2022 6:50 AM CADDIE) Pathologist [facility] Potassium, P 3.7 3.6 - 5.2 mmol/L 09/22/2022 7:24 AM CADDIE STMA Sodium, P 135 135 - 145 mmol/L 09/22/2022 7:24 AM CADDIE STMA Chloride, P 96(L) 98 - 107 mmol/L 09/22/2022 7:24 AM CADDIE STMA Bicarbonate, P 25 22 - 29 mmol/L 09/22/2022 7:24 AM CADDIE STMA Anion Gap, P 14 7 - 15 09/22/2022 7:24 AM CADDIE STMA BUN (Blood Urea Nitrogen), P 18 8 - 24 mg/dL 09/22/2022 7:24 AM CADDIE STMA Creatinine 0.77 0.74 - 1.35 mg/dL 09/22/2022 7:24 AM CADDIE STMA Estimated GFR (eGFR) >90 >=60 mL/min/BSA 09/22/2022 7:24 AM CADDIE ST[facility] Comment: Estimated GFR calculated using the 2020 CKD_EPI creatinine equation. Calcium, Total, P 9.1 8.8 - 10.2 mg/dL 09/22/2022 7:24 AM CADDIE STMA Glucose, P 360(H) 70 - 140 mg/dL 09/22/2022 7:24 AM CADDIE STMA Blood (Blood, Venous) 09/22/2022 6:50 AM CADDIE 09/22/2022 6:57 AM CADDIE Adrián Mayers M.D. [place] [address], [facility] [address] [place] [address] * ECG 12 Lead (09/22/2022 6:44 AM CADDIE) Ventricular Rate ECG/Min 67 BPM MUSE VT Interval 160 ms MUSE QRSD Interval 132 ms MUSE QT Interval 444 ms MUSE QTC Interval 469 ms MUSE P [place] 19 degrees MUSE R [place] 3 degrees MUSE T Wave [place] 55 degrees MUSE 09/22/2022 6:44 AM CADDIE 09/25/2022 1:07 PM CADDIE Impressions MUSE - 09/25/2022 1:08 PM CADDIE Normal sinus rhythm Non-specific intra-ventricular conduction block Cannot rule out Anteroseptal infarct ST elevation in Inferolateral leads - possible acute injury ST depression Anteroseptal leads - likely posterior injury given ST elevation in posterior leads ACUTE MS / STEMI Posterior chest leads were recorded. There was evidence of injury. Narrative Procedure Note Medardo Hyatt M.D. - 09/25/2022 IMPRESSION: Normal sinus rhythm Non-specific intra-ventricular conduction block Cannot rule out Anteroseptal infarct ST elevation in Inferolateral leads - possible acute injury ST depression Anteroseptal leads - likely posterior injury given STelevation in posterior leads ACUTE MS / STEMI Posterior chest leads were recorded. There was evidence of injury. Kellen Rollins APRNNAnaliPAnali, D.N.P., M.S.N . ECG ORDERABLES MUSE NA * ECG 12 Lead (09/22/2022 6:43 AM CADDIE) Ventricular Rate ECG/Min 71 BPM MUSE VT Interval 166 ms MUSE QRSD Interval 130 ms MUSE QT Interval 440 ms MUSE QTC Interval 478 ms MUSE P [place] 40 degrees MUSE R [place] -1 degrees MUSE T Wave [place] 59 degrees MUSE 09/22/2022 6:43 AM CADDIE 09/22/2022 7:01 AM CADDIE Impressions MUSE - 09/22/2022 7:01 AM CADDIE Normal sinus rhythm Non-specific intra-ventricular conduction block [...] NA documented in this encounter Visit Diagnoses Not on filedocumented in this encounter Admitting Diagnoses Diagnosis ST Elevation Myocardial Infarction Involving Left Circumflex 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 documented in [...] 0900, Postprocedure (CV) Given 09/26/2022 8:02 AM CADDIE 81 mg Given 09/25/2022 8:12 AM CADDIE 81 mg Given 09/24/2022 8:50 AM CADDIE 81 mg atorvastatin tablet 80 mg (LIPITOR) 80 mg, oral, Daily, First dose (after last modification) on Sat09/23/22 at 0900 Given 09/26/2022 8:02 AM CADDIE 80 mg Given 09/25/2022 8:12 AM CADDIE 80 mg Given 09/24/2022 8:50 AM CADDIE 80 mg atropine injection 0.5 mg 0.5 [...] 0900, Postprocedure (CV) Given 09/26/2022 8:02 AM CADDIE 75 mg Given 09/25/2022 8:12 AM CADDIE 75 mg Given 09/24/2022 8:50 AM CADDIE 75 mg docusate sodium capsule 100 mg (COLACE) 100 mg, oral, 2 times daily PRN, constipation, Starting on Sat09/25/22 at 1205, Postprocedure (CV), Do NOT crush or chew. fentaNYL injection (SUBLIMAZE) As needed, Starting on Sat09/22/22 at 0729, Intraprocedure (CV) Given 09/22/2022 7:34 AM CADDIE 50 mcg Given 09/22/2022 7:29 AM CADDIE 25 mcg fentaNYL injection (SUBLIMAZE) As needed, Starting on Sat09/22/22 at 0747, Intraprocedure (CV) Given 09/22/2022 8:19 AM CADDIE 25 mcg Given 09/22/2022 7:56 AM CADDIE 50 mcg Given 09/22/2022 7:53 AM CADDIE 25 mcg furosemide tablet 40 mg (LASIX) 40 mg, oral, Daily, First dose on Soila 09/27/22 at 0900 heparin (porcine) 1,000 unit/mL injection As needed, Starting on Sat09/22/22 at 0733, Intraprocedure (CV) Given 09/22/2022 7:33 AM CADDIE 7,000 Units insulin aspart U-100 (Carbohydrate Count) injection 0-40 Units (NovoLOG FlexPen) 0-40 Units, subcutaneous, 3 times daily with meals, First dose (after last modification) on Sat09/25/22 at 0800, Simple or Complex Ratio: Simple, Carb Ratio - Simple (1 unit per __ grams of carbohydrates): 6 Given 09/26/2022 12:15 PM CADDIE 6 Units Right Lower Abdomen Given 09/26/2022 7:58 AM CADDIE 8 Units Le ft Lower Abdomen Given 09/25/2022 5:55 PM CADDIE 6 Units Le ft Lower Abdomen insulin aspart U-100 injection 0-21 Units (NovoLOG FlexPen) 0-21 Units, subcutaneous, 3 times daily, First dose (after last modification) on Sat09/23/22 at 0730, Insulin Scale: Individualized Correction Scale, 140 - 179: 3, 180-219: 6, 220-259: 9, 260-299: 12, 300-339: 15, 340-379: 18, 380-399: 21, Greater than 399: Call service writing Insulin orders Given 09/26/2022 12:15 PM CADDIE 12 Units Right Lower Abdomen Given 09/26/2022 7:59 AM CADDIE 12 Units Le ft Lower Abdomen Given 09/25/2022 5:55 PM CADDIE 3 Units Le ft Upper Abdomen insulin glargine injection 50 Units 50 Units, subcutaneous, Every morning, First dose (after last modification) on 09/23/22 at 0730 Given 09/26/2022 8:02 AM CADDIE 50 Units Left Lower Abdomen Given 09/25/2022 8:13 AM CADDIE 50 Units Le ft Lower Abdomen Given 09/24/2022 8:54 AM CADDIE 50 Units Le ft Lower Abdomen iohexoL 350 mg iodine/mL solution (OMNIPAQUE) As needed, Starting on 09/22/22 at 0805, Intraprocedure (CV) Given 09/22/2022 8:05 AM CADDIE 100 mL lidocaine 10 mg/mL (1 %) injection (XYLOCAINE) As needed, Starting on 09/22/22 at 0727, Intraprocedure (CV) Given 09/22/2022 7:27 AM CADDIE 10 mL Right Groin losartan tablet 50 mg (COZAAR) 50 mg, oral, Daily, First dose (after last modification) on Sat09/26/22 at 0900 Given 09/26/2022 9:17 AM CADDIE 50 mg metoprolol succinate 24 hr tablet 50 mg (TOPROL-XL) 50 mg, oral, Daily, First dose on Sat09/26/22 at 0900, Do NOT crush or chew. Tablet may be split on score if needed. Given 09/26/2022 8:02 AM CADDIE 50 mg midazolam (PF) injection (VERSED) As needed, Starting on 09/22/22 at 0729, Intraprocedure (CV) Given 09/22/2022 7:29 AM CADDIE 0.5 mg midazolam (PF) injection (VERSED) As needed, Starting on 09/22/22 at 0748, Intraprocedure (CV) Given 09/22/2022 8:19 AM CADDIE 0.5 mg Given 09/22/2022 8:00 AM CADDIE 0.5 mg Given 09/22/2022 7:48 AM CADDIE 0.5 mg naloxone injection 0.2 mg (NARCAN) 0.2 mg, intravenous, As needed, respiratory depression, Starting on 09/25/22 at 1205, Postprocedure (CV), For RASS Score -4 or less, respiratory rate of less than 8 breaths/min. Notify provider/service and rapid response team (if available at institution). nitroglycerin 200 mcg/mL in D5W 250 mL infusion (TRIDIL) Continuous Infusion: Per Instructions PRN, Starting on 09/22/22 at 0726, Intraprocedure (CV) New Bag 09/22/2022 7:26 AM CADDIE 15 mcg/min 4.5 mL/hr promethazine injection 6.25 mg (PHENERGAN) 6.25 mg, [...] to maintain patency Given 09/26/2022 8:03 AM CADDIE 3 mL Given 09/25/2022 8:56 PM CADDIE 3 mL Given 09/25/2022 8:18 AM CADDIE 3 mL documented in this encounter Active and Recently Administered Medications Times are shown in CADDIE. Scheduled Medication Order 09/24/2022 09/25/2022 09/26/2022 aspirin chewable tablet 243 mg (COMPLETED) 243 mg, oral, Once, On 09/25/22 at [...] Chavira RAnaliNAnali)1330 (Given - Provider: Obdulia Valencia R.N.)2114 (Given - Provider: Jake Swan RAnaliNAnali) insulin aspart U-100 (Carbohydrate Count) injection 0-20 Units (NovoLOG FlexPen) (CANCELED) 0-20 Units, subcutaneous, 3 times daily with meals, First dose on Sat09/23/22 at 1700, Simple or Complex Ratio: Simple, Carb Ratio - Simple (1 unit per __ grams of carbohydrates): 8 1003 (Given - Provider: Obdulia Valencia RLilia. - Comment: pt eating)1254 (Given - Provider: Obdulia Valencia R.N.)1757 (Given - Provider: Obdulia Valencia R.N.) insulin aspart U-100 (Carbohydrate Count) injection 0-40 Units (NovoLOG FlexPen) 0-40 Units, subcutaneous, 3 times daily with meals, First dose (after last modification) on Sat09/25/22 at 0800, Simple or Complex Ratio: Simple, Carb Ratio - Simple (1 unit per __ grams of carbohydrates): 6 0758 (Not Given - Provider: Christiane Arias RAnaliNAnali - Reason: NPO)0823 (MAR Hold - Provider: [...] 1115 1133 (Given - Provider: Obdulia Valencia RLilia.) 0812 (Given - Provider: Christiane Arias RBereket)0823 (SEP Hold - Provider: Transfer Provider, Automatic - Reason: Patient not available)1201 ([facility] Unhold - Provider: Transfer Provider, Automatic) losartan tablet 50 mg (COZAAR) 50 mg, oral, Daily, First dose (after last modification) on Sat09/26/22 at 0900 0917 (Given - Provider: Adan Esparza RAnaliN.) metoprolol succinate 24 hr tablet 50 mg [...] doses 2114 (Given - Provider: Jake Swan RBereket) 0812 (Given - Provider: Christiane Arias RAnaliNAnali)0823 ([facility] Hold - Provider: Transfer Provider, Automatic - Reason: Patient not available)1201 ([facility] Unhold - Provider: Transfer Provider, Automatic)5 (Given - Provider: Namita Baker RAnaliN.) NaCl 0.9 % bolus 250 mL (COMPLETED) 250 mL, intravenous, at 1,000 mL/hr, Administer over 15 Minutes, Once, On Sat09/25/22 at 1215, For 1 dose, Postprocedure (CV) 1251 (New Bag - Provider: Christiane Arias RBereket) potassium chloride ER tablet 20 mEq (KLORCON/K-TAB) (COMPLETED) 20 mEq, oral, Once, On Sat09/24/22 at 0730, For 1 dose, Swallow whole. Do NOT crush, chew, or split tablet. 0850 (Given - Provider: Obdulia Valencia, R.N.) sodium chloride 0.9 % injection 3 mL 3 mL, intravenous, Every 12 hours scheduled, First dose on 09/22/22 at 0900, Peripheral Intravenous Catheter and Rapid Infusion Catheter, when no infusion to maintain patency 0851 (Given - Provider: Obdulia Valencia, R.N.)2114 (Given - Provider: Jake Swan RAnaliN.) 0818 (Given - Provider: Christiane Arias R.N.)0823 (SEP Hold - Provider: Transfer Provider, Automatic - Reason: Patient not available)120 (SEP Unhold - Provider: Transfer Provider, Automatic)2055 (Given - Provider: Namita Baker R.N.) 0803 (Given - Provider: Adan Esparza RAnaliN.) PRN Medication Order 09/24/2022 09/25/2022 09/26/2022 acetaminophen [...] PRN, Symptomatic bradycardia with hypotension, Starting on Tu09/25/22 at 1205, For 4 doses, Postprocedure (CV) bisacodyL suppository 10 mg (DULCOLAX) 10 mg, rectal, Daily PRN, constipation, Starting on 09/25/22 at 1205, Postprocedure (CV), PO route preferred. Constipation unrelieved by docusate sodium (COLACE) if ordered. If results needed within 2 hours - give rectal suppository. docusate sodium capsule 100 mg (COLACE) 100 mg, oral, 2 times daily PRN, constipation, Starting on 09/25/22 at 1205, Postprocedure (CV), Do NOT crush [...] Provider, Automatic - Reason: Patient not available)1201 ([facility] Unhold - Provider: Transfer Provider, [...] blood transfusion or post blood sampling 0823 ([facility] Hold - Provider: Transfer Provider, Automatic - Reason: Patient not available)1201 ([facility] Unhold - Provider: Transfer Provider, Automatic) sodium chloride 0.9 % injection 3 mL 3 mL, intravenous, As needed, line care, Starting on 09/22/22 at 0651, Prior to and following infusion and between multiple consecutive infusions: sodium chloride 0.9 % injection 0823 ([facility] Hold - Provider: Transfer Provider, Automatic - Reason: Patient not available)1201 ([facility] Unhold - Provider: Transfer Provider, Automatic) documented in this encounter Care Teams Cake Stripper Relationship Specialty Start Date End Date None Reported, Pcp PCP - General Family Medicine 09/22/22 documented as of this encounter
[2023-08-14] MEDS: PERFLUTREN LIPID MICROSPHERES 2 ML VIAL IV (11:05)
--- NOTE | 2023-08-14 11:05 | PC.NURSE ---
20G IV started in left hand. Definity given. IV then removed intact.
== END 2023-08-14 09:20 | disposition home or self-care (01) ==
PROVIDERS: PCP Chiropractor; Visit Provider Chiropractor
DX: I25.10 Atherosclerotic heart disease of native coronary artery without angina pectoris (principal); I35.0 Nonrheumatic aortic (valve) stenosis
CPT/HCPCS: 93306; Q9957